=== PATIENT | female | born 1960 | race Caucasian/White ===

== ENCOUNTER 2020-06-08 12:09 | Inpatient (IN) | payer OTHER, SELFPAY ==
--- OUTSIDE RECORDS SUMMARY | 2020-06-08 12:11 | XMS REPORT | Clinical Summary ---
:1960 Author Organization [facility] Address [address] [place] [address] Care Team Providers Name Role Phone Asked, No Pcp Primary Care Provider Unavailable Allergies Not on File Medications Not on file Active Problems Not on file Social History Tobacco Use Types Packs/Day Years Used Date Never Assessed Sex Assigned at Date Recorded Not on file Last Filed Vital Signs Not on file Plan of Treatment Health Maintenance Due Date Last Done Comments COVID-19 VACCINE (1 of 2) 1977 CERVICAL CANCER SCREENING 1982 BREAST CANCER SCREENING 09/01/2011 COLONOSCOPY SCREENING 09/01/2011 SHINGLES VACCINES (#1) 09/01/2011 INFLUENZA VACCINE 12/09/2019 Results Not on fileafter 06/08/2019
--- OUTSIDE RECORDS SUMMARY | 2020-06-08 12:14 | XMS REPORT | Continuity of Care Document ---
:1960 Author Organization [facility] Information [place] Care Team Providers Name Role Phone [facility] Information Exchange Unavailable Un available Problems Problem Status Onset Classification Date Comments Sourc e Date Reported POSSIBLE STROKE Active S ugar 016 [place] HYPOTENSION, DIZZINESS Active Sugar 016 [place] G81.[address] RIGHT SIDE WEAKNESS Active 016 [facility] CVA Active 016 [facility] CHEST PAIN Active Sugar 016 [place] Discharge Diagnosis: 07/09/2015 [place] Anxiety in acute 016 Evan d stress reaction Discharge Diagnosis: 07/09/2015 [place] Left-sided chest wall 016 [place] pain Discharge Diagnosis: 06/24/2015 Anxiety 016 [facility] Discharge Diagnosis: 06/24/2015 Benign hypertension 016 [facility] HYPERTENSION Active 016 [facility] Anxiety (finding) Resolved Problem 09/29/2015 [facility], [place] [facility],[facility], [place] Gastritis (disorder) Resolved Problem 09/29/2015 [facility], [place],[facility], [place] Hypercholesterolemia Resolved Problem 09/29/2015 [facility] (disorder) [facility], [place],[facility], [place] Hypertensive disorder, Resolved Problem 09/29/2015 [facility] systemic arterial Me dical (disorder) Center, [place] [facility],[facility], [place] Hypothyroidism Resolved Problem 09/29/2015 [place] ([place]order) [facility], LI[place] R[place],[facility], [place] Major depressive Resolved Problem 09/29/2015 [facility] disorder (disorder) Medical Center, [place] R[place],[facility], [place] Rheumatoid arthritis Resolved Problem 09/29/2015 [facility] (disorder) [facility], [place] R[place],[facility], [place] Suicidal thoughts Resolved Problem 09/29/2015 [facility] (finding) [facility], [facility] Depressive disorder Resolved Problem 09/29/2015 [facility] (disorder) [facility], [place] Optic neuritis Resolved Problem 09/29/2015 Janet alejandra (disorder) [facility], [facility] Medications Medication Details Route Status Patient Ordering Order Source Instructions Provider Date Amlodipine 5 MG / 0.5 tab, PO, Active [facility] [place] Sugar Hydrochlorothiazide Daily, # 15 2015 [place] 25 MG / valsartan 160 tab, 0 MG Oral Tablet Refill(s) [Exforge HCT 5160/25] Risperdal Notes: (Same Inactive Sugar as: 2015 Risperdal) Omeprazole 20 mg, No Longer Sugar Route: PO, Active 2015 Drug form: DRC, Daily, Dosing Weight 72.727, kg, Start date: 09/26/15 9:00:00 CDT, Duration: 30 day, Stop date: 10/25/15 9:00:00 CDT Protonix Notes: Inactive Sugar Tablet 2015 should not be chewed or crushed. (Same as: Protonix) Advair Diskus 250 1 puff, No Longer S ugar mcg-50 mcg inhalation Route: Active [place] powder INHALATION, Drug Form: AERO, Dosing Weight 72.727, kg, BID, Start date: 09/26/15 9:00:00 CDT, Duration: 30 day, Stop date: 10/25/15 17:00:00 CDT Wellbutrin XL Notes: (Same Inactive S ugar as: 2015 Wellbutrin XL) "Do Not Crush" Effexor XR Notes: Do Inactive Sugar not open, 2015 crush, or chew. (Same As: Effexor XR) Cytomel Notes: (Same Inactive Sugar as: Cytomel) 2015 [place] liothyronine sodium 5 microgram Active Sugar 0.005 MG Oral Tablet = 1 tab, PO, 2015 [place] [Cytomel] Daily, # 30 tab, 3 Refill(s) Levothyroxine Sodium 150 Active Sugar 0.15 MG Oral Tablet microgram = 2015 [place] [Synthroid] 1 tab, PO, Daily, Brand Name Necessary, # 30 tab, 3 Refill(s) Thyroxine Notes: Take Inactive Sugar 1 hour 2015 [place] before or 2 hours after meal; Enteral feeds may interefere with the absorption of this medication.( Same as:Levothroi d, Synthroid) Diazepam Notes: (Same No Longer Sugar as: Valium) Active 2015 [place] Lipitor Notes: (Same No Longer Sugar as: Lipitor) Active 2015 [place] Symbicort 80/4.5 Notes: (Same No Longer Sugar inhalation aerosol as: Active 2015 [place] with adapter Symbicort) WASTE: Aerosol - Return to Pharmacy NS 1,000 mL 1,000 mL, No Longer Sugar Rate: 125 Active 2015 ml/hr, Infuse over: 8 hr, Route: IV, Dosing Weight 72.727 kg, Total Volume: 1,000, Start date: 09/25/15 20:27:00 CDT, Duration: 30 day, Stop date: 10/25/15 20:26:00 CDT Acetaminophen Notes: Do No Longer Sug ar not exceed 4 Active 2015 [place] gm/day. (Same as: Tylenol) Morphine Notes: (Same No Longer Sugar as:MORPhine Active 2015 [place] Sulfate) Acetaminophen 325 MG Notes: (Same No Longer 09/07 Sugar / Hydrocodone as: [place] Active 2015 [place] Bitartrate 5 MG Oral 325/5) Do Tablet not exceed 4gm/day of acetaminophe n. Ondansetron Notes: (Same No Longer [place] as: Zofran) Active 2015 [place] MEDICATION WASTE Product Size: 4 mg Product Wasted: ___ mg Docusate Notes: (Same No Longer Sugar as: Colace) Active 2015 [place] (Do Not Crush) Risperidone 2 MG Oral 2 mg = 1 Active H Sugar Tablet [Risperdal] tab, PO, 2015 [place] BID, # 60 tab, 0 Refill(s) venlafaxine 225 mg 225 mg = 1 Active Sugar oral tablet, extended tab, PO, 2015 L and release Daily, # 30 tab, 0 Refill(s) Rosuvastatin calcium 20 mg = 1 Active H Sugar 20 MG Oral Tablet tab, PO, 2015 [place] [Crestor] Bedtime, # 30 tab, 0 Refill(s) Advair Diskus 250 1 puff, Active Sug ar mcg-50 mcg inhalation INHALATION, 2015 [place] powder BID, # 1 ea, 3 Refill(s) Potassium Chloride 10 10 mEq = 1 Active Sugar MEQ Extended Release tab, PO, 2015 [place] Tablet BID, # 10 tab, 0 Refill(s) Acetaminophen Notes: Do Inactive Suga r not exceed 4 2015 gm/day. (Same as: Tylenol) Saline Flush 0.9% Notes: (Same No Longer Sugar as: BD Active 2015 Posiflush) Sodium Chloride 0.154 1,000 mL, Inactive Sugar MEQ/ML Injectable Rate: 150 2015 Solution ml/hr, Infuse over: 6.7 hr, Route: IV, Dosing Weight 72.727 kg, Total Volume: 1,000, Priority: STAT, Start date: 09/25/15 16:51:00 CDT, Duration: 1 doses or times, Stop date: 09/25/15 23:32:00 CDT Sodium Chloride 0.154 1,000 mL, Inactive Sugar MEQ/ML Injectable 1,000 ml/hr, 2015 L and Solution Infuse Over: 1 hr, Route: IV, 1,000, Drug form: INJ, ONCE, Priority: STAT, Dosing Weight 72.727 kg, Start date: 09/25/15 16:12:00 CDT, Duration: 1 doses or times, Stop date: 09/25/15 16:12:00 CDT Effexor PO, 0 No Longer Sugar Refill(s) Active 2015 Risperdal PO, BID, 0 No Longer Sugar Refill(s) Active 2015 Potassium Chloride 20 Notes: (Same Inactive 07/10 MEQ Extended Release as: K-Dur 2015 [facility] Tablet 20) "Do Not City Crush" With food and full glass of water Potassium Chloride 10 10 mEq = 1 Active MEQ Extended Release tab, PO, 2015 Fl morial Tablet BID, # 20 [facility] tab, 0 Refill(s) Effexor XR 225 mg, 3 Inactive cap, Route: 2015 [facility] PO, Drug City form: ERCAP, Daily, Dosing Weight 68.182, kg, Start date: 08/08/15 9:00:00, Duration: 30 day, Stop date: 09/06/15 9:00:00 Omeprazole 20 mg, No Longer Route: PO, Active 2015 [facility] Drug form: City DRC, Daily, Dosing Weight 68.182, kg, Start date: 08/08/15 9:00:00, Duration: 30 day, Stop date: 09/06/15 9:00:00 Pete Notes: (Same Inactive as: Mobic) 2015 [facility] Wellbutrin XL 300 mg, 2 Inactive tab, Route: 2015 [facility] PO, Drug City form: ERTAB, Daily, Dosing Weight 68.182, kg, Start date: 08/08/15 9:00:00, Duration: 30 day, Stop date: 09/06/15 9:00:00 potassium chloride Notes: (Same Inactive as: K-Dur 2015 [facility] 20) "Do Not City Crush" With food and full glass of water Thyroxine Notes: Take Inactive 1 hour 2015 [facility] before or 2 [facility] hours after meal; Enteral feeds may interefere with the absorption of this medication. (Same as:Levothroi d) Sodium Chloride 0.154 500 mL, 500 Inactive 08/07 MEQ/ML Injectable ml/hr, 2015 [facility] al Solution Infuse Over: [facility] 1 hr, Route: IV, 500, Drug form: INJ, ONCE, Priority: STAT, Dosing Weight 71.6 kg, Start date: 08/08/15 1:18:00, Duration: 1 doses or times, Stop date: 08/08/15 1:18:00 Albumin Human, [facility] 50 Notes: LOT#: Inactive 07/10 1/ MH MG/ML Injectable 2015 Me morial Solution _ [facility] Mfg: WASTE: F/P - Red; E -Red (Same as: Albuminar) "blood product derivative" Sodium Chloride 0.154 1,000 mL, Inactive MEQ/ML Injectable 1,000 ml/hr, 2015 [facility] Solution Infuse Over: [facility] 1 hr, Route: IV, 1,000, Drug form: INJ, ONCE, Priority: STAT, Dosing Weight 71.6 kg, Start date: 08/07/15 23:19:00, Duration: 1 doses or times, Stop date: 08/07/15 23:19:00 Saline Flush 0.9% 10 ml, Inactive Route: IVP, 2015 [facility] Drug Form: City INJ, Dosing Weight 68.182, kg, Q12H, Start date: 08/07/15 21:00:00, Duration: 30 day, Stop date: 09/06/15 9:00:00 Protonix 40 mg, 1 No Longer tab, Route: Active 2015 [facility] PO, Drug City form: ECTAB, Before Dinner, Start date: 08/07/15 21:00:00, Duration: 30 day, Stop date: 09/06/15 16:30:00 Nancy Notes: (Same No Longer As: Geodon) Active 2015 [facility] Give with [facility] Food Diazepam Notes: (Same No Longer as: Valium) Active 2015 [facility] Symbicort 80/4.5 Notes: (Same No Longer inhalation aerosol as: Active 2015 Mem[facility] ial with adapter Symbicort) [facility] WASTE: Aerosol - Return to Pharmacy Lipitor Notes: (Same No Longer as: Lipitor) Active 2015 [facility] Enoxaparin Notes: (Same No Longer as: Lovenox) Active 2015 [facility] Sodium Chloride 0.9% 25 mL, No Longer H IV Route: IV, Active 2015 [facility] Start date: [facility] 08/07/15 19:36:00, Duration: 30 day, Stop date: 09/06/15 19:35:00, PRN Line Flush BD Normal Saline Notes: (Same No Longer Flush as: BD Active 2015 [facility] Posiflush) [facility] normal saline 0.9% IV 1,000 mL, No Longer 1,000 mL Rate: [address] [place] [address] ml/hr, [facility] Infuse over: 8 hr, Route: IV, Dosing Weight 68.182 kg, Total Volume: 1,000, Start date: 08/07/15 18:13:00, Duration: 30 day, Stop date: 09/06/15 18:12:00 Saline Flush 0.9% 10 ml, Inactive Route: IVP, [address] [place] [address] Drug Form: [facility] INJ, Dosing Weight 68.182, kg, PRN, PRN Line Flush, Start date: 08/07/15 18:12:00, Duration: 30 day, Stop date: 09/06/15 18:11:00 ziprasidone 20 MG 20 mg = 1 Active Oral Capsule [Geodon] cap, PO, 2015 [facility] QPM, # 180 [place] cap, 0 Refill(s) Symbicort 80/4.5 2 puff, Active inhalation aerosol INHALATION, 2015 [facility] with adapter BID, # 10.2 [place] gm, 0 Refill(s) atorvastatin 80 MG 80 mg = 1 Active Oral Tablet [Lipitor] tab, PO, 2016 [facility] Bedtime, # City 30 tab, 0 Refill(s) omeprazole 20 mg oral 20 mg = 1 Active delayed release cap, PO, 2016 Memoria l capsule Daily, # 30 [place] cap, 1 Refill(s) 24 HR Bupropion 300 mg = 1 Active Hydrochloride 300 MG tab, PO, 2016 Fl morial Extended Release Daily, # 30 Cit y Tablet [Wellbutrin] tab, 0 Refill(s) 24 HR venlafaxine 75 225 mg = 3 Active MG Extended Release cap, PO, 2016 Mem orial Capsule [Effexor] Daily, # 30 Ci ty cap, 0 Refill(s) Amlodipine 5 MG / 1 tab, PO, Active Hydrochlorothiazide Daily, # 30 2016 [facility] 25 MG / valsartan 160 tab, 0 Ci ty MG Oral Tablet Refill(s) [Exforge HCT 5/160/25] metoprolol 50 mg oral 50 mg = 1 Active tablet, extended tab, PO, 2015 Memori al release Daily, # 30 [facility] tab, 0 Refill(s) meloxicam 15 MG Oral 15 mg = 1 Active H Tablet [Mobic] tab, PO, 2015 [facility] Daily, # 30 [facility] tab, 0 Refill(s) levothyroxine 125 mcg 125 Active 08/06[facility] (0.125 mg) oral microgram = 2015 Vic rial tablet 1 tab, PO, [facility] Daily, # 30 tab, 0 Refill(s) diazepam 5 mg oral 5 mg = 1 Active tablet tab, PO, 2015 [facility] BID, # 30 [place] tab, 0 Refill(s) Sodium Chloride 0.154 1,000 mL, Inactive MEQ/ML Injectable 1,000 ml/hr, 2015 [facility] Solution Infuse Over: [facility] 1 Hour, Route: IV, ONCE, Priority: STAT, Dosing Weight 68.182 kg, Start date: 08/07/15 17:20:00, Duration: 1 doses or times, Stop date: 08/07/15 17:20:00 Aspirin 324 mg, Inactive Route: CHEW, 2015 [facility] Drug form: [facility] CHEWTAB, ONCE, Dosing Weight 68.182, kg, Priority: STAT, Start date: 08/07/15 17:14:00, Stop date: 08/07/15 17:14:00 Saline Flush 0.9% Notes: (Same Inactive as: BD 2015 [facility] Posiflush) [facility] Ativan 0.5 mg, Inactive Sugar Route: IVP, 2015 [facility] Drug form: INJ, ONCE, Dosing Weight 74.545, kg, Priority: STAT, Start date: 07/06/15 16:17:00, Stop date: 07/06/15 16:17:00 Aspirin 324 mg, Inactive Sugar Route: PO, 2015 [facility] ONCE, Dosing Weight 74.545, kg, Priority: STAT, Start date: 07/06/15 16:17:00, Stop date: 07/06/15 16:17:00 Morphine 2 mg, Route: Inactive Sugar IVP, ONCE, 2015 [facility] Dosing Weight 74.545, kg, Priority: STAT, Start date: 07/06/15 16:17:00, Stop date: 07/06/15 16:17:00 Ondansetron 4 mg, Route: Inactive Sug ar IVP, ONCE, 2015 [facility] Dosing Weight 74.545, kg, Priority: STAT, Start date: 07/06/15 16:17:00, Stop date: 07/06/15 16:17:00 Saline Flush 0.9% Notes: (Same Inactive Sugar as: BD 2015 [facility] Posiflush) Famotidine 20 mg, Inactive Sugar Route: IVP, 2015 [facility] ONCE, Dosing Weight 74.545, kg, Priority: STAT, Start date: 07/06/15 16:16:00, Stop date: 07/06/15 16:16:00 Valium 0 Refill(s) Active Sugar 2016 [facility] Amlodipine 10 MG / 1 tab, PO, Active Sugar valsartan 160 MG Oral Daily, 0 2016 L and Tablet [Exforge Refill(s) 10/160] Omeprazole PO, Daily, 0 Active Sugar Refill(s) 2016 [place] Crestor PO, Bedtime, Active Sugar 0 Refill(s) 2016 [facility] metoprolol tartrate BID, 0 Active S ugar Refill(s) 2016 [facility] Levothroid PO, Daily, 0 Active Sugar Refill(s) 2016 [facility] Wellbutrin PO, 0 Active Sugar Refill(s) 2016 [facility] Advair Diskus 100 1 puff, Active Sug ar mcg-50 mcg inhalation INHALATION, 2016 [facility] powder BID, 0 Refill(s) clindamycin 300 mg 300 mg = 1 Active oral capsule cap, PO, 2016 [facility] Q6H, X 10 City day, # 40 cap, 0 Refill(s) tramadol 50 mg = 1 Active hydrochloride 50 MG tab, PO, 2016 Mem orial Oral Tablet Q6H, PRN City Pain, X 10 day, # 40 tab, 0 Refill(s) Sodium Chloride 0.154 1,000 mL, Inactive MEQ/ML Injectable 1,000 ml/hr, 2016 [facility] Solution Infuse Over: [facility] 1 hr, Route: IV, 1,000, Drug form: INJ, ONCE, Priority: STAT, Dosing Weight 78.182 kg, Start date: 06/21/15 13:42:00, Duration: 1 doses or times, Stop date: 06/21/15 13:42:00 Amlodipine Notes: (Same Inactive as: [facility]) 2015 [facility] Allergies, Adverse Reactions, Alerts Substance Category Reaction Severity Reaction Status Date Comments S ource type Reported Mucinex Assertion Drug Active allergy [place] penicillins Assertion Drug Active allergy [place] Immunizations No Data Provided for This Section Results Order Name Results Value Reference Date Interpretation Comments Rosey rce Range CARDIAC Total CK 80 12 - 191 09/25 Sugar ENZYMES [facility] CARDIAC Troponin-I <0.02 0.00 - 09/25 [place] ENZYMES 0.40 [facility] CARDIAC CK MB Index 0.9 0.0 - 2.5 09/25 Sugar ENZYMES [facility] CARDIAC CK MB 0.7 0.5 - 3.6 09/25 Sugar ENZYMES [facility] CHEM PANEL eGFR 57 09/25 Result Comment: The [facility] eGFR is calculated using the CKD-EPI formula. In most young, healthy individuals the eGFR will be >90 mL/min/1.73m2 . The eGFR declines with age. An eGFR of 60-89 may be normal in some populations, particularly the elderly, for whom the CKD-EPI formula has not been extensively validated. Use of the eGFR is not recommended in the following populations:< br/>
Maryan viduals with unstable creatinine concentration s, including patients and those with serious co-morbid conditions.<b r/>
Patie nts with extremes in muscle mass or diet.

The data above are obtained from the National Kidney Disease Education Program (NKDEP) which additionally recommends that when the eGFR is used in patients with extremes of body mass index for purposes of drug dosing, the eGFR should be multiplied by the estimated BMI. CHEM PANEL AGAP 12.5 10.0 - 09/25 Sugar 20.0 [facility] CHEM PANEL Calcium Lvl 8.6 8.5 - 10.5 09/25 Sug ar [facility] CHEM PANEL Glucose Lvl 82 70 - 99 09/25 [place] CHEM PANEL BUN 12 7 - 22 09/25 [place] /2015 [place] CHEM PANEL Sodium Lvl 144 135 - 145 09/25 [place] CHEM PANEL CO2 26 24 - 32 09/25 [place] CHEM PANEL Potassium 3.5 3.5 - 5.1 09/25 [place] Lvl /2015 [place] CHEM PANEL Chloride Lvl 109 95 - 109 09/25 [place] CHEM PANEL Creatinine 1.10 0.50 - 05 [place] Lvl 1.40 /2015 [place] HEMATOLOGY Segs 58.5 45.0 - 05 [place] 75.0 /2015 [place] HEMATOLOGY Lymphocytes 31.4 20.0 - 05 [place] 40.0 /2015 [place] HEMATOLOGY Lymphocytes 1.7 1.0 - 5.5 09/25 [place] # /2015 [place] HEMATOLOGY Segs-Bands # 3.2 1.5 - 8.1 09/25 Sug [place] HEMATOLOGY Eosinophils 0.0 0.0 - 0.5 09/25 [place] # Land HEMATOLOGY Monocytes # 0.5 0.0 - 0.8 09/25 [place] HEMATOLOGY Basophils # 0.0 0.0 - 0.2 09/25 [place] HEMATOLOGY Monocytes 9.8 2.0 - 12.0 09/25 [place] HEMATOLOGY Eosinophils 0.0 0.0 - 4.0 09/25 [place] HEMATOLOGY Basophils 0.3 0.0 - 1.0 09/25 [place] HEMATOLOGY MPV 8.0 7.4 - 10.4 09/25 [place] HEMATOLOGY RDW 15.7 11.5 - 09/25 [place] 14.5 /2015 [place] HEMATOLOGY Platelet 161 133 - 450 09/25 [place] HEMATOLOGY MCHC 32.2 32.0 - 05 [place] 36.0 /2015 [place] HEMATOLOGY MCH 28.6 27.0 - 05 [place] 31.0 /2015 [place] HEMATOLOGY Hct 34.3 36.0 - 05 [place] 48.0 /2015 [place] HEMATOLOGY MCV 88.7 80.0 - 09/25 [place] 98.0 /2015 [place] HEMATOLOGY RBC 3.86 4.20 - 09/25 Sugar 5.40 /2015 [place] HEMATOLOGY Hgb 11.0 12.0 - 05/19 Sugar 16.0 /2015 [place] HEMATOLOGY WBC 5.5 3.7 - 10.4 09/25 [place] /2015 [place] CARDIAC CK MB Index 0.9 0.0 - 2.5 09/25 [place] ENZYMES [place] CARDIAC CK MB 0.7 0.5 - 3.6 09/25 [place] ENZYMES [place] CARDIAC Troponin-I <0.02 0.00 - 09/25 Sugar ENZYMES 0.40 /2015 [place] CARDIAC Total CK 82 12 - 191 09/25 Sugar ENZYMES Land URINE AND UA Color Yellow Yellow 09/24 Sugar STOOL *NA* /2015 [place] (09/25/15 5:05 PM) URINE AND UA Mucus Moderate None Seen 09/24 Sugar STOOL /LPF /LPF /2015 [place] URINE AND UA Bacteria Few /HPF None Seen 09/24 [place] STOOL /HPF Land URINE AND UA Hyal Cast 6-10 0 - 2 09/24 [place] STOOL (09/25/15 5:05 PM) Land URINE AND UA Turbidity Slight Cloudy Clear 09/24 [place] STOOL (09/25/15 5:05 PM) Land URINE AND UA pH 6.0 5.0 - 8.0 09/24 [place] STOOL Land URINE AND UA Spec Grav >=1.030 <=1.030 09/24 [place] STOOL *ABN* /2015 [place] (09/25/15 5:05 PM) URINE AND UA Protein Trace Negative 09/24 Sugar STOOL *ABN* /2015 [facility] (09/25/15 5:05 PM) URINE AND UA Leuk Est Trace Negative 09/24 Sugar STOOL *ABN* /2015 [place] (09/25/15 5:05 PM) URINE AND UA Nitrite Negative Negative 09/24 [place] STOOL (09/25/15 5:05 PM) Land URINE AND UA WBC 3-5 /HPF None Seen 09/24 [place] STOOL /HPF [place] URINE AND UA Sq Epi Few /LPF Few /LPF 09/24 [place] STOOL Land URINE AND UA Blood Negative Negative 09/24 [place] STOOL (09/25/15 5:05 PM) Land URINE AND UA RBC 0-2 /HPF 0 - 2 09/24 [place] STOOL [place] URINE AND UA Glucose Negative Negative 09/24 MH Sugar STOOL (09/25/15 5:05 PM) /2015 [place] URINE AND UA 0.2 0.1 - 1.0 09/24 [place] STOOL Urobilinogen /2015 [place] URINE AND UA Ketones Negative Negative 09/24 Sugar STOOL *NA* /2015 [place] (09/25/15 5:05 PM) URINE AND UA Bili Small Negative 09/24 [place] STOOL *ABN* /2015 [place] (09/25/15 5:05 PM) CARDIAC Total CK 94 12 - 191 09/24 [place] ENZYMES /2015 [place] CARDIAC Troponin-I <0.015 0.00 - 09/24 [place] ENZYMES ng/mL 0.40 [facility] CHEM PANEL Magnesium 2.1 1.8 - 2.4 09/24 [place] Lvl /2015 [place] ELECTROLYTE AGAP 9.6 10.0 - 09/24 MH Sugar S 20.0 [place] ELECTROLYTE B/C Ratio 11 6 - 25 09/24 Sugar S [place] ELECTROLYTE Globulin 3.8 2.0 - 4.0 09/24 Sugar S [place] ELECTROLYTE A/G Ratio 1.0 0.7 - 1.6 09/24 Sugar S [place] ELECTROLYTE eGFR 35 09/24 Sugar S /2015 Comment: The [facility] eGFR is calculated using the CKD-EPI formula. In most young, healthy individuals the eGFR will be >90 mL/min/1.73m2 . The eGFR declines with age. An eGFR of 60-89 may be normal in some populations, particularly the elderly, for whom the CKD-EPI formula has not been extensively validated. Use of the eGFR is not recommended in the following populations:< br/>
Maryan viduals with unstable creatinine concentration s, including patients and those with serious co-morbid conditions.<b r/>
Patie nts with extremes in muscle mass or diet.

The data above are obtained from the National Kidney Disease Education Program (NKDEP) which additionally recommends that when the eGFR is used in patients with extremes of body mass index for purposes of drug dosing, the eGFR should be multiplied by the estimated BMI. ELECTROLYTE Bili Total 0.4 0.2 - 1.3 09/24 [place] S [place] ELECTROLYTE AST 16 0 - 37 09/24 [place] S [place] ELECTROLYTE Alk Phos 78 39 - 136 05/18 Sugar S /2016 [place] ELECTROLYTE ALT 17 0 - 65 05/18 Sugar S /2016 [place] ELECTROLYTE Calcium Lvl 9.2 8.5 - 10.5 05/18 [place] S /2016 [place] ELECTROLYTE Chloride Lvl 103 95 - 109 05/18 Sug ar S /2016 [place] ELECTROLYTE CO2 29 24 - 32 05/18 Sugar S /2016 [place] ELECTROLYTE Glucose Lvl 74 70 - 99 05/18 Sugar S /2016 [place] ELECTROLYTE BUN 18 7 - 22 05/18 Sugar S /2016 [place] ELECTROLYTE Sodium Lvl 138 135 - 145 05/18 [place] S /2016 [place] ELECTROLYTE Potassium 3.6 3.5 - 5.1 05/ Sugar S Lvl /2016 [place] ELECTROLYTE Creatinine 1.65 0.50 - 05 Sugar S Lvl 1.40 /2016 [place] ELECTROLYTE Total 7.7 6.4 - 8.4 / Sugar S Protein /2016 [place] ELECTROLYTE Albumin Lvl 3.9 3.5 - 5.0 05/ Sug ar S /2016 [place] HEMATOLOGY PTT 29.0 22.9 - 05/18 Sugar 35.8 /2016 [place] HEMATOLOGY INR 1.06 0.85 - 05/18 Sugar 1.17 /2016 [place] HEMATOLOGY PT 14.1 12.0 - 05/18 [place] 14.7 /2016 [place] HEMATOLOGY Hgb 11.6 12.0 - 05/18 [place] 16.0 /2016 [place] HEMATOLOGY MCV 87.9 80.0 - 05/18 [place] 98.0 /2016 [place] HEMATOLOGY Hct 36.1 36.0 - 05/18 [place] 48.0 /2016 [place] HEMATOLOGY WBC 6.9 3.7 - 10.4 05/18 MH Sugar /2016 [place] HEMATOLOGY RDW 15.4 11.5 - 05/18 [place] 14.5 /2016 [place] HEMATOLOGY RBC 4.11 4.20 - 05/18 Sugar 5.40 /2016 [place] HEMATOLOGY Platelet 176 133 - 450 05/18 Sugar /2016 [place] HEMATOLOGY MPV 8.3 7.4 - 10.4 05/18 Sugar /2016 [place] HEMATOLOGY MCH 28.2 27.0 - 05/18 [place] 31.0 /2016 [place] HEMATOLOGY MCHC 32.1 32.0 - 05/18 [place] 36.0 /2016 [place] HEMATOLOGY Lymphocytes 1.6 1.0 - 5.5 05/18 [place] # /2016 [place] HEMATOLOGY Monocytes # 0.7 0.0 - 0.8 09/24 [place] /2016 [place] HEMATOLOGY Segs-Bands # 4.5 1.5 - 8.1 09/24 Sug ar /2015 [place] HEMATOLOGY Basophils 0.3 0.0 - 1.0 09/24 [place] /2015 [place] HEMATOLOGY Lymphocytes 23.7 20.0 - 09/24 [place] 40.0 [place] HEMATOLOGY Monocytes 10.6 2.0 - 12.0 09/24 [place] /2015 [place] HEMATOLOGY Segs 65.4 45.0 - 09/24 Sugar 75.0 [facility] URINE AND UA Sq Epi Few /LPF Few /LPF 08/07 STOOL /2015 [facility] URINE AND UA Leuk Est Negative Negative 08/07 STOOL (08/08/15 7:04 AM) /2015 [facility] URINE AND UA WBC 2 0 - 5 08/07 STOOL /2015 [facility] URINE AND UA Nitrite Negative Negative 08/07 STOOL (08/08/15 7:04 AM) /2015 [facility] URINE AND UA Blood Negative Negative 08/07 STOOL (08/08/15 7:04 AM) /2015 [facility] URINE AND UA Glucose Negative Negative 08/07 STOOL mg/dL mg/dL /2015 [facility] URINE AND UA Bili Negative Negative 08/07 STOOL *NA* /2015 [facility] (08/08/15 7:04 AM) [facility] URINE AND UA Color Straw 08/07 STOOL [facility] URINE AND UA <=1.0 0.1 - 1.0 08/07 STOOL Urobilinogen mg/dL /2015 [facility] URINE AND UA Ketones Negative 08/07 STOOL /2015 [facility] URINE AND UA Bacteria Moderate None Seen 08/07 STOOL /HPF /HPF /2015 [facility] URINE AND UA RBC 1 0 - 2 08/07 STOOL /2015 [facility] URINE AND UA Mucus Few /LPF None Seen 08/07 STOOL /LPF /2015 [facility] URINE AND UA Turbidity Clear Clear 08/07 STOOL (08/08/15 7:04 AM) /2015 [facility] URINE AND UA Spec Grav 1.004 <=1.030 08/07 STOOL /2015 [facility] URINE AND UA pH 6.0 5.0 - 8.0 08/07 STOOL /2015 [facility] URINE AND UA Protein Negative Negative 08/07 STOOL mg/dL mg/dL /2015 [facility] CHEM PANEL Magnesium 2.1 1.8 - 2.4 08/07 Lvl [facility] CHEM PANEL eGFR 47 08/07 Result Comment: [facility] eGFR is City calculated using the CKD-EPI formula. In most young, healthy individuals the eGFR will be >90 mL/min/1.73m2 . The eGFR declines with age. An eGFR of 60-89 may be normal in some populations, particularly the elderly, for whom the CKD-EPI formula has not been extensively validated. Use of the eGFR is not recommended in the following populations:< br/>
Maryan viduals with unstable creatinine concentration s, including patients and those with serious co-morbid conditions.<b r/>
Patie nts with extremes in muscle mass or diet.

The data above are obtained from the National Kidney Disease Education Program (NKDEP) which additionally recommends that when the eGFR is used in patients with extremes of body mass index for purposes of drug dosing, the eGFR should be multiplied by the estimated BMI. CHEM PANEL Calcium Lvl 8.3 8.5 - 10.5 08/07 [facility] CHEM PANEL AGAP 13.1 10.0 - 08/07 20.0 [facility] CHEM PANEL Potassium 3.1 3.5 - 5.1 08/07 Lvl [facility] CHEM PANEL Chloride Lvl 112 95 - 109 08/07 [facility] CHEM PANEL CO2 26 24 - 32 08/07 [facility] CHEM PANEL Sodium Lvl 148 135 - 145 08/07 [facility] CHEM PANEL Creatinine 1.31 0.50 - 08/07 Lvl 1.40 /2015 [facility] CHEM PANEL BUN 12 7 - 22 08/07 [facility] CHEM PANEL Glucose Lvl 71 70 - 99 08/07 [facility] HEMATOLOGY MCV 86.3 80.0 - 08/07 MH 98.0 /2015 [facility] HEMATOLOGY MPV 9.0 7.4 - 10.4 08/07 [facility] HEMATOLOGY Platelet 114 133 - 450 08/07 [facility] HEMATOLOGY RDW 13.9 11.5 - 08/07 MH 14.5 [facility] HEMATOLOGY MCHC 32.1 32.0 - 08/07 MH 36.0 /2015 [facility] HEMATOLOGY Hct 32.0 36.0 - 08/07 MH 48.0 /2015 [facility] HEMATOLOGY MCH 27.7 27.0 - 08/07 MH 31.0 /2015 [facility] HEMATOLOGY WBC 3.7 3.7 - 10.4 08/07 MH /2015 [facility] HEMATOLOGY Hgb 10.3 12.0 - 08/07 MH 16.0 /2015 [facility] HEMATOLOGY RBC 3.70 4.20 - 08/07 MH 5.40 /2015 [facility] HEMATOLOGY Segs 33.0 45.0 - 08/07 MH 75.0 /2015 [facility] HEMATOLOGY Bands 0.0 0.0 - 11.0 08/07 /2015 [facility] HEMATOLOGY Lymphocytes 61.0 20.0 - 08/07 MH 40.0 /2015 [facility] HEMATOLOGY Monocytes 5.0 2.0 - 12.0 08/07 /2015 [facility] HEMATOLOGY Plt Morph Normal 08/07 (08/08/15 4:41 AM) /2015 [facility] HEMATOLOGY RBC Morph Normal 08/07 (08/08/15 4:41 AM) /2015 [facility] Myelocytes 1.0 <=0.0 % 08/07 /2015 [facility] HEMATOLOGY Atypical 0.0 <=0.0 % 08/07 Lymphs /2015 [facility] HEMATOLOGY Monocytes # 0.2 0.0 - 0.8 08/07 /2015 [facility] HEMATOLOGY Segs-Bands # 1.2 1.5 - 8.1 08/07 /2015 [facility] HEMATOLOGY Lymphocytes 2.3 1.0 - 5.5 08/07 # /2015 [facility] LIPIDS CHD Risk 3.06 3.90 - 08/07 5.80 /2015 [facility] LIPIDS LDL 31 <=99 mg/dL 08/07 (Calculated) /2015 [facility] LIPIDS HDL 31 >=61 mg/dL 08/07 /2015 [facility] LIPIDS Chol 95 <=199 08/07 mg/dL /2015 [facility] LIPIDS Trig 165 <=149 08/07 mg/dL /2015 [facility] LIPIDS VLDL 33 08/07 MH /2015 [facility] CHEM PANEL Creatinine 1.42 0.50 - 08/07 Lvl 1.40 /2015 [facility] CHEM PANEL eGFR 42 08/07 Result Comment: [facility] eGFR is City calculated using the CKD-EPI formula. In most young, healthy individuals the eGFR will be >90 mL/min/1.73m2 . The eGFR declines with age. An eGFR of 60-89 may be normal in some populations, particularly the elderly, for whom the CKD-EPI formula has not been extensively validated. Use of the eGFR is not recommended in the following populations:< br/>
Maryan viduals with unstable creatinine concentration s, including patients and those with serious co-morbid conditions.<b r/>
Patie nts with extremes in muscle mass or diet.

The data above are obtained from the National Kidney Disease Education Program (NKDEP) which additionally recommends that when the eGFR is used in patients with extremes of body mass index for purposes of drug dosing, the eGFR should be multiplied by the estimated BMI. HEMATOLOGY PTT 30.8 22.9 - 08/07 35.8 /2015 [facility] HEMATOLOGY Platelet 156 133 - 450 08/07 [facility] SPECIAL Hgb A1C 5.7 <=5.6 % 08/07 CHEMISTRY [facility] URINE AND UA RBC 1 0 - 2 08/06 STOOL [facility] URINE AND UA Sq Epi Moderate Few /LPF 08/06 STOOL /LPF [facility] URINE AND UA WBC 5 0 - 5 08/06 STOOL [facility] URINE AND UA Hyal Cast 5 0 - 2 08/06 STOOL [facility] URINE AND UA Mucus Many /LPF None Seen 08/06 STOOL /LPF [facility] URINE AND UA Bacteria Occasional None Seen 08/06 STOOL /HPF /HPF [facility] URINE AND UA Ketones Negative 08/06 STOOL [facility] URINE AND UA <=1.0 0.1 - 1.0 08/06 STOOL Urobilinogen mg/dL [facility] URINE AND UA pH 5.0 5.0 - 8.0 08/06 STOOL [facility] URINE AND UA Protein 30 mg/dL Negative 08/06 STOOL mg/dL [facility] URINE AND UA Turbidity Slight Clear 08/06 STOOL *ABN* /2015 [facility] Spec Grav 1.019 <=1.030 08/06 MH STOOL /2015 [facility] URINE AND UA Color Dark Yellow Yellow 08/06 STOOL *NA* /2015 [facility] (08/07/15 5:01 PM) [facility] URINE AND UA Glucose Negative Negative 08/06 STOOL mg/dL mg/dL /2015 [facility] URINE AND UA Blood Negative Negative 08/06 STOOL (08/07/15 5:01 PM) [facility] URINE AND UA Bili Negative Negative 08/06 STOOL *NA* /2015 [facility] (08/07/15 5:01 PM) [facility] URINE AND UA Nitrite Negative Negative 08/06 STOOL (08/07/15 5:01 PM) [facility] URINE AND UA Leuk Est Negative Negative 08/06 STOOL (08/07/15 5:01 PM) [facility] CHEM PANEL B/C Ratio 9 6 - 25 08/06 [facility] CHEM PANEL A/G Ratio 1.2 0.7 - 1.6 08/06 [facility] CHEM PANEL Globulin 3.7 2.0 - 4.0 08/06 [facility] CHEM PANEL AGAP 15.1 10.0 - 08/06 MH 20.0 [facility] CHEM PANEL eGFR 33 08/06 Comment: [facility] eGFR is City calculated using the CKD-EPI formula. In most young, healthy individuals the eGFR will be >90 mL/min/1.73m2 . The eGFR declines with age. An eGFR of 60-89 may be normal in some populations, particularly the elderly, for whom the CKD-EPI formula has not been extensively validated. Use of the eGFR is not recommended in the following populations:< br/>
Maryan viduals with unstable creatinine concentration s, including patients and those with serious co-morbid conditions.<b r/>
Patie nts with extremes in muscle mass or diet.

The data above are obtained from the National Kidney Disease Education Program (NKDEP) which additionally recommends that when the eGFR is used in patients with extremes of body mass index for purposes of drug dosing, the eGFR should be multiplied by the estimated BMI. CHEM PANEL ALT 24 0 - 65 08/06 [facility] CHEM PANEL AST 38 0 - 37 08/06 [facility] CHEM PANEL Creatinine 1.73 0.50 - 08/06 MH Lvl 1.40 /2015 [facility] CHEM PANEL Glucose Lvl 104 70 - 99 08/06 [facility] CHEM PANEL BUN 15 7 - 22 08/06 [facility] CHEM PANEL Bili Total 0.3 0.2 - 1.3 08/06 [facility] CHEM PANEL Total 8.0 6.4 - 8.4 08/06 MH Protein [facility] CHEM PANEL Alk Phos 83 39 - 136 08/06 [facility] CHEM PANEL Potassium 3.1 3.5 - 5.1 08/06 MH Lvl /2015 [facility] CHEM PANEL Sodium Lvl 143 135 - 145 08/06 [facility] CHEM PANEL CO2 30 24 - 32 08/06 [facility] CHEM PANEL Chloride Lvl 101 95 - 109 08/06 [facility] CHEM PANEL Calcium Lvl 9.5 8.5 - 10.5 08/06 [facility] CHEM PANEL Albumin Lvl 4.3 3.5 - 5.0 08/06 [facility] HEMATOLOGY Monocytes # 0.7 0.0 - 0.8 08/06 [facility] HEMATOLOGY Eosinophils 0.0 0.0 - 0.5 08/06 MH # /2015 [facility] HEMATOLOGY Lymphocytes 28.2 20.0 - 08/06 MH 40.0 [facility] HEMATOLOGY Segs 62.2 45.0 - 08/06 MH 75.0 [facility] HEMATOLOGY Monocytes 9.3 2.0 - 12.0 08/06 [facility] HEMATOLOGY Lymphocytes 2.2 1.0 - 5.5 08/06 MH # /2015 [facility] HEMATOLOGY Eosinophils 0.0 0.0 - 4.0 08/06 [facility] HEMATOLOGY Basophils 0.3 0.0 - 1.0 08/06 [facility] HEMATOLOGY Segs-Bands # 4.9 1.5 - 8.1 08/06 [facility] HEMATOLOGY Hgb 13.4 12.0 - 08/06 MH 16.0 [facility] HEMATOLOGY MCH 28.0 27.0 - 08/06 MH 31.0 /2015 [facility] HEMATOLOGY Hct 41.0 36.0 - 08/06 MH 48.0 /2015 [facility] HEMATOLOGY MCV 85.6 80.0 - 08/06 MH 98.0 [facility] HEMATOLOGY RDW 13.6 11.5 - 03/30 MH 14. [facility] HEMATOLOGY Platelet 198 133 - 450 08/06 [facility] HEMATOLOGY MCHC 32.6 32.0 - 08/06 MH 36.0 [facility] HEMATOLOGY MPV 8.5 7.4 - 10.4 08/06 [facility] HEMATOLOGY WBC 7.9 3.7 - 10.4 08/06 [facility] HEMATOLOGY RBC 4.78 4.20 - 08/06 MH 5.40 [facility] CARDIAC CK MB <0.5 0.5 - 3.6 08/06 ENZYMES [facility] CARDIAC Total CK 82 12 - 191 08/06 ENZYMES [facility] CARDIAC Troponin-I <0.02 0.00 - 08/06 [facility] 0. [facility] CARDIAC CK MB <0.5 0.5 - 3.6 08/06 ENZYMES [facility] CARDIAC CK MB Index <0.6 0.0 - 2.5 08/06 [facility]YM[facility] CARDIAC Troponin-I <0.015 0.00 - 07/06 [place] [facility] ng/mL 0. [facility] CARDIAC CK MB <0.5 ng/mL 0.5 - 3.6 07/06 [place] [facility] CARDIAC Total CK 33 12 - 191 07/06 [place] [facility] CARDIAC CK MB Index <0.5 0.0 - 2.5 07/06 [place] [facility] CHEM PANEL eGFR 43 07/06 Comment: [facility] [place] eGFR is calculated using the CKD-EPI formula. In most young, healthy individuals the eGFR will be >90 mL/min/1.73m2 . The eGFR declines with age. An eGFR of 60-89 may be normal in some populations, particularly the elderly, for whom the CKD-EPI formula has not been extensively validated. Use of the eGFR is not recommended in the following populations:< br/>
Maryan viduals with unstable creatinine concentration s, including patients and those with serious co-morbid conditions.<b r/>
Patie nts with extremes in muscle mass or diet.

The data above are obtained from the National Kidney Disease Education Program (NKDEP) which additionally recommends that when the eGFR is used in patients with extremes of body mass index for purposes of drug dosing, the eGFR should be multiplied by the estimated BMI. CHEM PANEL AGAP 14.1 10.0 - 07/06 [place] 20.0 [place] CHEM PANEL Bili Total 0.5 0.2 - 1.3 07/06 [place] CHEM PANEL B/C Ratio 12 6 - 25 07/06 [place] CHEM PANEL Globulin 4.0 2.0 - 4.0 07/06 [place] CHEM PANEL A/G Ratio 1.0 0.7 - 1.6 07/06 [place] CHEM PANEL Sodium Lvl 139 135 - 145 07/06 [place] CHEM PANEL Chloride Lvl 102 95 - 109 07/06 [place] CHEM PANEL Potassium 3.1 3.5 - 5.1 07/06 [place] Lvl /2015 [facility] CHEM PANEL Glucose Lvl 112 70 - 99 07/06 [facility] CHEM PANEL Creatinine 1.41 0.50 - 07/06 [place] Lvl 1.40 [facility] CHEM PANEL BUN 17 7 - 22 07/06 [facility] CHEM PANEL Alk Phos 78 39 - 136 07/06 [place] CHEM PANEL Calcium Lvl 9.4 8.5 - 10.5 07/06 [place] CHEM PANEL CO2 26 24 - 32 07/06 [place] CHEM PANEL Total 8.1 6.4 - 8.4 07/06 [place] CHEM PANEL AST 33 0 - 37 07/06 [place] CHEM PANEL ALT 20 0 - 65 07/06 [place] CHEM PANEL Albumin Lvl 4.1 3.5 - 5.0 07/06 [place] HEMATOLOGY D-Dimer 0.58 07/06 [place] HEMATOLOGY MPV 8.5 7.4 - 10.4 07/06 [place] HEMATOLOGY Platelet 204 133 - 450 07/06 [place] HEMATOLOGY Hct 39.7 36.0 - 07/06 [place] 48.0 [facility] HEMATOLOGY WBC 6.2 3.7 - 10.4 07/06 [place] HEMATOLOGY RBC 4.84 4.20 - 07/06 [place] 5.40 /2015 [place] HEMATOLOGY MCV 81.9 80.0 - 07/06 [place] 98.0 /2016 [place] HEMATOLOGY MCH 27.4 27.0 - 02 [place] 31.0 /2015 [place] HEMATOLOGY MCHC 33.5 32.0 - 07/06 [place] 36.0 /2016 [place] HEMATOLOGY RDW 13.3 11.5 - 07/06 [place] 14.5 /2015 [facility] HEMATOLOGY Hgb 13.3 12.0 - 07/06 [place] 16.0 /2015 [place] HEMATOLOGY Lymphocytes 2.0 1.0 - 5.5 07/06 [place] # /2016 [place] HEMATOLOGY Monocytes # 0.7 0.0 - 0.8 07/06 [place] /2015 [place] HEMATOLOGY Segs 56.2 45.0 - 07/06 [place] 75.0 /2015 [place] HEMATOLOGY Lymphocytes 32.1 20.0 - 07/06 [place] 40.0 /2015 [place] HEMATOLOGY Monocytes 11.5 2.0 - 12.0 07/06 [place] /2016 [place] HEMATOLOGY Basophils 0.2 0.0 - 1.0 07/06 [place] /2015 [facility] HEMATOLOGY Segs-Bands # 3.5 1.5 - 8.1 07/06 [place] /2015 [facility] CARDIAC CK MB Index <1.3 0.0 - 2.5 06/21 ENZYMES /2015 [facility] CARDIAC Troponin-I <0.02 0.00 - 06/21 ENZYM[place] 0.40 /2015 [facility] CARDIAC Total CK 39 12 - 191 06/21 ENZYMES /2015 [facility] CARDIAC CK MB <0.5 0.5 - 3.6 06/21 ENZYMES /2015 [facility] CHEM PANEL Calcium Lvl 9.3 8.5 - 10.5 06/21 [facility] CHEM PANEL AGAP 11.6 10.0 - 02 MH 20.0 /2016 [facility] CHEM PANEL CO2 26 24 - 32 06/21 [facility] CHEM PANEL Sodium Lvl 141 135 - 145 06/21 [facility] CHEM PANEL BUN 10 7 - 22 06/21 [facility] CHEM PANEL Potassium 3.6 3.5 - 5.1 06/21 Lvl /2015 [facility] CHEM PANEL Chloride Lvl 107 95 - 109 06/21 [facility] CHEM PANEL eGFR 83 06/21 [facility] Comment: [facility] eGFR is City calculated using the CKD-EPI formula. In most young, healthy individuals the eGFR will be >90 mL/min/1.73m2 . The eGFR declines with age. An eGFR of 60-89 may be normal in some populations, particularly the elderly, for whom the CKD-EPI formula has not been extensively validated. Use of the eGFR is not recommended in the following populations:< br/>
Maryan viduals with unstable creatinine concentration s, including patients and those with serious co-morbid conditions.<b r/>
Patie nts with extremes in muscle mass or diet.

The data above are obtained from the National Kidney Disease Education Program (NKDEP) which additionally recommends that when the eGFR is used in patients with extremes of body mass index for purposes of drug dosing, the eGFR should be multiplied by the estimated BMI. CHEM PANEL Creatinine 0.82 0.50 - 02 MH Lvl 1.40 /2015 [facility] CHEM PANEL Glucose Lvl 97 70 - 99 06/21 [facility] HEMATOLOGY Basophils # 0.0 0.0 - 0.2 06/21 [facility] HEMATOLOGY Lymphocytes 29.6 20.0 - 02 MH 40.0 [facility] HEMATOLOGY Monocytes # 0.5 0.0 - 0.8 06/21 [facility] HEMATOLOGY Eosinophils 0.0 0.0 - 0.5 06/21 MH # /2015 [facility] HEMATOLOGY Basophils 0.2 0.0 - 1.0 06/21 [facility] HEMATOLOGY Lymphocytes 1.7 1.0 - 5.5 06/21 MH # /2015 [facility] HEMATOLOGY Segs-Bands # 3.7 1.5 - 8.1 06/21 [facility] HEMATOLOGY Monocytes 7.7 2.0 - 12.0 06/21 [facility] HEMATOLOGY Eosinophils 0.0 0.0 - 4.0 / [facility] HEMATOLOGY Segs 62.5 45.0 - 02 MH 75.0 /2015 [facility] HEMATOLOGY RDW 12.5 11.5 - 02 MH 14.5 /2015 [facility] HEMATOLOGY MCHC 32.8 32.0 - 02/ MH 36.0 /2015 [facility] HEMATOLOGY MCH 28.0 27.0 - 02/ MH 31.0 [facility] HEMATOLOGY MCV 85.3 80.0 - 02 MH 98.0 [facility] HEMATOLOGY Hct 36.6 36.0 - 02/ MH 48.0 /2016 [facility] HEMATOLOGY Hgb 12.0 12.0 - 06/21 16.0 /2015 [facility] HEMATOLOGY WBC 5.9 3.7 - 10.4 06/21 [facility] HEMATOLOGY RBC 4.29 4.20 - 02 5.40 /2015 [facility] HEMATOLOGY MPV 8.5 7.4 - 10.4 06/21 [facility] HEMATOLOGY Platelet 192 133 - 450 06/21 [facility] URINE AND UA <=1.0 0.1 - 1.0 06/21 STOOL Urobilinogen mg/dL /2015 [facility] URINE AND UA Ketones Negative 06/21 STOOL [facility] URINE AND UA RBC <1 0 - 2 06/21 STOOL [facility] URINE AND UA Color Light Yellow Yellow 06/21 STOOL *NA* /2015 [facility] (06/21/15 1:00 PM) [facility] URINE AND UA Turbidity Clear Clear 06/21 STOOL (06/21/15 1:00 PM) /2015 [facility] URINE AND UA Sq Epi Few /LPF Few /LPF 06/21 STOOL [facility] URINE AND UA WBC 1 0 - 5 06/21 STOOL [facility] URINE AND UA Blood Negative Negative 06/21 STOOL (06/21/15 1:00 PM) /2015 [facility] URINE AND UA Nitrite Negative Negative 06/21 STOOL (06/21/15 1:00 PM) [facility] URINE AND UA Leuk Est Negative Negative 06/21 STOOL (06/21/15 1:00 PM) [facility] URINE AND UA Glucose Negative Negative 06/21 STOOL mg/dL mg/dL /2015 [facility] URINE AND UA Bili Negative Negative 06/21 STOOL *NA* /2015 [facility] (06/21/15 1:00 PM) [facility] URINE AND UA Spec Grav 1.011 <=1.030 06/21 STOOL [facility] URINE AND UA pH 8.0 5.0 - 8.0 06/21 STOOL [facility] URINE AND UA Protein Negative Negative 06/21 STOOL mg/dL mg/dL /2015 [facility] Pathology Reports No Data Provided for This Section Diagnostic Reports Report Value Date Source Ext Lower Arterial Examination: Ext Lower Arterial Doppler bila t US 09/26/2015 [facility] Doppler bilat US Provided History: Pain, Limb IMPRESSION: 1. No evidence of arterial o cclusion or evidence of severe peripheral vascular disease 2. 3.9 x 1 x 2.6 cm right popliteal cyst. DISCUSSION: Noninvasive felix rial Doppler studies of both lower extremities was completed. Studies of the left lower ex tremity demonstrate normal triphasic waveforms with no evidence of high velocities that would otherwise suggest stenosis. Studies of the right lower e xtremity demonstrate no evidence of arterial occlusion or high velocities that would suggest vascular stenosis. Of note is a fairly prominent 3.9 x 1 x 2.6 cm ovoid popliteal fluid collection consistent with a slightly complex popliteal cyst containing minimal internal debris. No vascular flow within the cystic mass is evident that would otherwise suggest pseudoaneurysm. Chest 2 views DX Exam: Two-view chest x-ray 09/25/2015 Minesh Mckeon Reason for Exam: Chest pain Comparison Exam: Chest x-ray 08/07/2015 Discussion: Cardiomediastinal silhouette is within normal limits. Both hemidiaphragms well visualized. No pulmonary edema or pleural effusions. No focal lung consolidations. Trachea is midline. No acute bony abnormalities. Impression: 1. No acute cardiopulmonary abnormalities. Brain wo contrast CT CLINICAL HISTORY:Headache with Dizzines s and Giddiness. 09/25/2015 [place] AGE: 55 years GENDER: Female TECHNIQUE: Axial scans of th e brain without contrast including multiplanar computer-generated reformations. Total Dose Length Product: 735.66. mGy-cm There is no CT evidence of a cute intracranial hemorrhage, mass effect or midline shift. There is preservation of the stark-white matter d ifferentiation.. There is no extra-axial fluid collection. Ventricles, subarachnoid spa cole and sulci are mildly prominent suggesting mild atrophy -most prominent in the frontal lobes.. Orbits are symmetric. The paranasal sinuses and mastoid air cells wel l pneumatized. IMPRESSION: No acute intracranial findings. Spine Thoracic w/wo EXAM: MRI THORACIC SPINE WITH AND WITHOU T CONTRAST 09/11/2015 LIZ Venkatesh contrast MRI DATE: 09/11/2015 INDICATION: G81.91 Hemiplegia, unspecified aff ecting right dominant side COMPARISON: None TECHNIQUE: Multiplanar, mult isequence MR imaging of the thoracic spine were obtained before and after the intravenous administration of contrast material.. FINDINGS: The height and the structure of the thoracic vertebral bodies are well- maintained. No bone marrow signal abnormality. No acute fracture or dislocation. No spinal canal stenosis or cord compression. Shallow annular bulges at T4-T5 and T6-T7. Morphology and signal intens ity emanating from the spinal cord are unremarkable. No mass or abnormal enhancement. No foraminal narrowing or nerve root impingement . IMPRESSION: No cord signal changes. No mass or abnormal enha ncement. No canal stenosis or foraminal narrowing Spine lumbar w/wo EXAM: MRI LUMBAR SPINE WITHOUT AND WITH CONTRA ST 09/11/2015 LIZ Riddle contrast MRI DATE: 09/11/2015 at 1733 hours INDICATION: G81.91 Hemiplegia, unspecified aff ecting right dominant side COMPARISON: None. TECHNIQUE: Sagittal T1, sagi ttal T2, sagittal T2 with fat saturation, axial T1, and axial T2-weighted images of the lumbar spine are obtained without contrast. Postcontrast axial and sagittal T1-weighted fat saturated images were obtained. DISCUSSION: Normal lumbar segmentation i s assumed with the lowest fully formed intervertebral disc space labeled as L5-S1 for the purpose of this examination. Vertebral alignment is anato trista. Vertebral heights are preserved. There is no significant bone marrow signal abnormality. The conus medullaris termina patrice at the mid L1. It has a normal contour and normal signal characteristics. No intradural pathology is identified. Disc spaces, spinal canal and neural foramina ar e as follows: T12-L1: Normal disc signal w ith preservation of disc height. No evidence of spinal canal stenosis. No significant facet hypertrophy. No significant neural foramina stenosis. L1-L2: Normal disc signal wi th preservation of disc height. No evidence of spinal canal stenosis. No significant facet hypertrophy. No significant neural foramina stenosis. L2-L3: Normal disc signal wi th preservation of disc height. No evidence of spinal canal stenosis. No significant facet hypertrophy. No significant neural foramina stenosis. L3-L4: Mild degenerative dis c desiccation with preservation of disc height. Mild diffuse disc bulge. No evidence of spinal canal stenosis. Bilateral mild facet hypertrophy. No significant neural foramina stenosis. L4-L5: Mild degenerative dis c desiccation with preservation of disc height. Mild diffuse disc bulge. No evidence of spinal canal stenosis. Bilateral mild facet hypertrophy. Disc bulge and bilateral face t hypertrophy resulted in bi lateral mild neural foramina narrowing, causing encroachment upon exiting L4 nerve root without nerve root compression. L5-S1: Normal disc signal wi th preservation of disc height. No evidence of spinal canal stenosis. No significant facet hypertrophy. No significant neural foramina stenosis. Both SI joints appear unrema rkable. No significant abnormality within the visualized paraspinous musculature. There is no evidence of hydronephrosis bilaterally. Note is made of right renal cyst. Note is made of retroaortic left renal vein. No abnormal enhancement within spine on postcont rast imaging. IMPRESSION: 1. Mild degenerative change s at L3-L4 and L4-L5 without significant spinal canal stenosis. 2. Mild diffuse bulge and b ilateral facet hypertrophy at L4-L5 resulted in bilateral mild neural foramina narrowing, causing encroachment upon exiting L4 nerve root without nerve root compression. 3. No abnormal enhancement within the spine. 4. Simple appearing right renal cyst. Retroaort ic left renal vein. Spine cervical w/wo EXAM: MRI CERVICAL SPINE WITH AND WITHOU T CONTRAST 09/11/2015 [facility] [place] contrast MRI DATE: 09/11/2015 4:05 PM CDT INDICATION: 55 years old Fem fabiano patient with history of G81.91 Hemiplegia, unspecified affecting right dominant side. COMPARISON: None. TECHNIQUE: Multiplanar, mult isequence noncontrast MR imaging of the cervical spine. Postcontrast sagittal and axial T1-weighted fat saturation images are provided. FINDINGS: Vertebral alignment is near anatomic without sig nificant subluxation. Mild degenerative vertebral body height loss at C5 and C6 otherwise vertebral body heights are grossly maintained. No significant bone marrow signal abnormality is identified. Craniovertebral junction carmen ears unremarkable. Cerebellar tonsils are normal in position. There is normal signal intensity of the cervical spinal cord. Prevertebral and paravertebral soft tissue appea r unremarkable. Disc level analysis as follows: C2-C3: Degenerative disc trevor iccation with preservation of the disc height. There is no significant spinal canal stenosis. No significant neural foramina stenosis is identified. C3-C4: Degenerative disc trevor iccation with preservation of the disc height. There is no significant spinal canal stenosis. No significant neural foramina stenosis is identified. C4-C5: Degenerative disc trevor iccation with preservation of the disc height. Minimal diffuse disc bulge. There is no significant spinal canal stenosis. Bilateral mild neural foramina narrowing from uncovertebral and facet joint hypertrophy. C5-C6: Degenerative disc trevor iccation with preservation of the disc height. Diffuse disc bulge and ligamentum flavum buckling causing near complete effacement of the subarachnoid fluid spaces and mild sp inal canal stenosis with res idual thecal sac measures 7 mm in AP dimension. Mild to moderate right and mild left neural foramina narrowing from uncovertebral and facet joint hypertrophy. C6-C7: Degenerative disc trevor iccation with preservation of the disc height. There is no significant spinal canal stenosis. No significant neural foramina stenosis is identified. C7-T1: Normal disc signal wi th preservation of the disc height. There is no significant spinal canal stenosis. No significant neural foramina stenosis is identified. No abnormal enhancement within cervical spine on postcontrast imaging. IMPRESSION: 1. Disc bulge and ligamentum flavum buckling causing mild spinal canal stenosis at C5-C6. 2. Neural foramina narrowing at C4-C5 and C5-C6 as detailed above. Brain w/wo contrast EXAM: MRI BRAIN WITH AND WITHOUT CONTRAST [facility] DATE: 09/11/2015 INDICATION: G81.91 Hemiplegia, unspecified aff ecting right dominant side COMPARISON: CT brain 08/07/2015 and 06/21/2015 TECHNIQUE: Multiplanar, mult isequence non-contrast MRI images of the brain. Multiplanar imaging is subsequently obtained following intravenous gadolinium contrast. IV contrast: 8 mL MultiHance FINDINGS: Few hyperintensity T2 lesion s in the supratentorial white matter in both frontal hemispheres. No hydrocephalus, midline shift or mass effect. No acute hemorrhage or restricted diffusion. No mass or abnormal enhancement. Pineal region, pituitary gla nd, cranial cervical junction, orbits and internal auditory canals are unremarkable. No bony lesions. Resolution of the air-fluid level within the left maxillary sinus. Major intracranial flow voids are well-maintained. IMPRESSION: No acute intracranial abnormality Few hyperintensity T2 foci i n the supratentorial white matter most consistent with small vessel disease. Resolution of the air-fluid level within the lef t maxillary sinus. Unremarkable MRI exam of the brain. Carotid artery CLINICAL HISTORY : weakness , Other- See Note to Radiologist 08/08/2015 [facility] Doppler bilat US EXAM : Bilateral Carotid Duplex 08/07/2015 6:12 PM CDT COMPARISON : none TECHNIQUE : Utilizing a line ar array transducer, real-time ultrasound evaluation of the bilateral carotid arteries was performed. Color Doppler imaging was used assess vascular flow. Measurements and stenosis evaluation is based on NASCET criteria. Velocity criteria were based on SRU consensus co nference criteria FINDINGS : The right common carotid art krystian is normal in appearance measuring 5.9 mm in diameter. The right-sided carotid bulb is normal in appearance without significant atherosclerotic plaque or narrowing on grayscale image. The right internal carotid a rtery is normal in appearance without significant atherosclerotic plaque. The right external carotid a rtery is normal in appearance without significant atherosclerotic plaque. There is normal low resistan ce waveform in the right common and internal carotid arteries. There is normal high resistance waveform in the right external carotid artery. There is normal directional flow in the right ve rtebral artery. The left common carotid felix ry is normal in appearance measuring 5.0 mm in diameter. The left-sided carotid bulb is normal in appearance without significant atherosclerotic plaque or narrowing on grayscale image. The left internal carotid ar shanthi is normal in appearance without significant atherosclerotic plaque. The left external carotid ar shanthi is normal in appearance without significant atherosclerotic plaque. There is normal low resistan ce waveform in the left common and internal carotid arteries. There is normal high resistance waveform in the left external carotid artery. There is normal directional flow in the left olman tebral artery. Peak Velocities: Common carotid artery: 81 cm/sec right, 92 cm/se c left. Internal carotid artery: 76 cm/sec right, 66 cm/ sec left. ICA/CCA ratio: 0.9 right, 0.7 left External carotid artery: 88 cm/s right, 55 cm/s left IMPRESSION: 1. No hemodynamically signif icant stenoses of the bilateral carotid arteries by velocity criteria. 2. No significant atherosclerotic plaque or narr owing on grayscale images. Chest 1view DX EXAMINATION: Chest, 1 view 08/07/2015 [facility] HISTORY: Dizziness; FINDINGS: Single frontal vie w of the chest is submitted for interpretation and compared to 07/06/2015. The patient is rotated to th e right. The cardiomediastinal silhouette is within normal limits. There are no pleural effusions or pneumothorax. The lungs are clear without focal pneumonic consolidation or pulmonary edema. IMPRESSION: 1. No radiographic evidence of acute cardiopulmo nary disease. Brain wo contrast CT CT BRAIN WITHOUT CONTRAST 08/07/2015 [facility] COMPARISON: 06/21/2015 CT exam. COMMENTS: Coronal and sagittal multipl carlos reformatted images are also submitted for interpretation. The DLP is 687 mGy - cm. No intracranial hemorrhage, ventriculomegaly, or midline shift is seen. Beam hardening artifacts obscure portions of the exam. Mild bilateral frontal cerebral atrophy is again seen. 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 Left middle cranial fossa 0.7 cm osteoma versus calcified meningioma is also stable. Significant left maxillary sinusitis with air-fl uid level is present. IMPRESSION: 1. No acute intracranial hemorrhage, parenchymal mass or acute ischemia seen. 2. Stable right frontal sinu s osteoma and left middle cranial fossa osteoma versus calcified meningioma. 3. Significant left maxillary sinusitis. 4. Bilateral frontal lobe mild atrophy. Chest 1view DX EXAM: AP CHEST X-RAY 07/06/2015 [place] DATE: 07/06/2015 4:17 PM [employer] . CLINICAL INDICATION: Chest pain TECHNIQUE: SINGLE FRONTAL VIEW OF THE CHEST COMPARISON: 06/21/2015 chest x-ray FINDINGS: The lungs are well -inflated and clear. Heart and mediastinal contours are normal. Bony thorax is unremarkable. IMPRESSION: No acute intrath oracic process or worrisome change compared to previous study Brain wo contrast CT Exam: CT scan of the brain without contrast 06/21/2015 [facility] Reason for Exam: Headache with Dizziness and Gid diness Comparison Exam: None Technique: Multiple axial im ages were obtained of the brain. 5 mm slices were acquired without injection of intravenous contrast. Reformatted sagittal and coronal images were obtained for additional tammy gnostic information. Total exam DLP = 671 mGy-cm . Discussion: No abnormal fluid collection s, space-occupying lesions, hydrocephalus, or midline shift. No evidence seen for acute cortical-based ischemic infarct or intra-axial/extra-axial hematoma. No skull fractures identifie d. The orbits are unremarkable. Visualized portion of the left maxillary sinus is heavily opacified. Impression: 1. No acute intracranial abnormalities apprecia yue. Chest 1view DX CLINICAL HISTORY: Chest pain 06/21/2015 [facility] AGE: 54 years GENDER: Female TECHNIQUE: Single AP, portable chest radiograph, 1 view. COMPARISON: None FINDINGS: The cardiomediastinal silhouette is within wolf l limits. No focal airspace or interst itial opacities are seen. No pleural effusions. No pneumothorax. No significant osseous abnormalities are identif ied. IMPRESSION: No acute cardiopulmonary disease. Consultation Notes No Data Provided for This Section Discharge Summaries No Data Provided for This Section History and Physicals No Data Provided for This Section Vital Signs Vital Sign Value Date Comments Source Temperature Oral (F) 97.5 F 09/27/2015 [place] Heart Rate 80 09/27/2015 [place] Rate 18 09/27/2015 [place] Systolic (mm Hg) 143 09/27/2015 [place] Diastolic (mm Hg) 90 09/27/2015 [place] [facility] Systolic (mm Hg) 127 09/26/2015 [place] Diastolic (mm Hg) 80 09/26/2015 [place] Respitory Rate 18 09/26/2015 [facility] [place] Heart Rate 78 09/26/2015 [place] Temperature Oral (F) 98.0 F 09/26/2015 [place] Temperature Oral (F) 98.6 F 09/26/2015 [place] Heart Rate 80 09/26/2015 [place] Systolic (mm Hg) 121 09/26/2015 [facility] [place] Diastolic (mm Hg) 78 09/26/2015 [place] Respitory Rate 18 09/26/2015 [place] Weight 66.563 09/26/2015 [place] Height 162.56 cm 09/26/2015 [place] Weight 72.727 09/26/2015 [place] BMI Calculated 27.52 09/26/2015 [place] Weight 72.727 09/25/2015 [place] Height 167.64 cm 09/12/2015 [facility] Weight 75 09[facility]12/2015 [facility] BMI Calculated 26.69 09/12/2015 [facility] Respitory Rate 24 08/09/2015 [facility] Systolic (mm Hg) 119 08/09/2015 [facility] Diastolic (mm Hg) 72 [facility] Respitory Rate 22 08/09/2015 [facility] Systolic (mm Hg) 105 08/09/2015 [facility] Diastolic (mm Hg) 66 08/09/2015 [facility] [facility] [place] Systolic (mm Hg) 108 08/09/2015 [facility] Diastolic (mm Hg) 68 08/09/2015 [facility] [place] Respitory Rate 20 08/09/2015 [facility] Temperature Oral (F) 97.7 F 08/08/[address] [facility] Oral (F) 98.1 F 08/08/2015 [facility] Weight 71.6 08/08/2015 [facility] BMI Calculated 27.09 08/08/2015 [facility] Height 162.56 cm 08/08/2015 [facility] Heart Rate 71 08/07/2015 [facility] Height 162.56 cm 08/07/2015 [facility] BMI Calculated 25.8 08/07/2015 [facility] Temperature Oral (F) 98.0 F 08/07/2015 [facility] Weight 68.182 08/07/2015 [facility] Temperature Oral (F) 98.5 F 07/06/2015 [place] Systolic (mm Hg) 108 07/06/2015 [place] Diastolic (mm Hg) 79 07/06/2015 [place] [facility] Respitory Rate 18 07/06/2015 [place] Heart Rate 67 07/06/2015 [place] BMI Calculated 28.21 07/06/2015 [place] Weight 74.545 07/06/2015 [place] Height 162.56 cm 07/06/2015 [place] Respitory Rate 18 07/06/2015 [place] Temperature Oral (F) 98.5 F 07/06/2015 [place] [facility] Rate 79 07/06/2015 [place] Systolic (mm Hg) 124 07/06/2015 [place] Diastolic (mm Hg) 82 07/06/2015 [place] [facility]itory Rate 18 06/22/2015 [facility] Systolic (mm Hg) 170 06/22/2015 [facility] Diastolic (mm Hg) 90 06/22/2015 [facility] Systolic (mm Hg) 151 06/21/2015 [facility] Diastolic (mm Hg) 81 06/21/2015 [facility] Resp[facility] Rate 17 06/21/2015 [facility] Systolic (mm Hg) 147 06/21/2015 [facility] Diastolic (mm Hg) 82 06/21/2015 [facility] Respitory Rate 18 06/21/2015 [facility] La[facility] it[facility] Height 162.56 cm 06/21/2015 [facility] Weight 78.182 06/21/2015 [facility] BMI Calculated 29.59 06/21/2015 [facility] it[facility] Heart Rate 62 06/21/2015 [facility] Temperature Oral (F) 98.4 F 06/21/2015 [facility] Encounters Location Location Encounter Encounter Reason Attending ADM DC Stat us Source Details Type Number For Provider Date Date Visit [facility] [place] [id number] Moath Amro 06/21 06/[address] [place] [address] [facility] [id number] Shamar Weist 07/06 07/06 [place] [facility] [id number] Tiruchengod 08/06 08/08 [place] [id number] Jose 09/10 09/11 [facility] [id number] Jose 09/11 09/12 [place] 3 [facility] OBS [id number] Yohannes 09/24 09/26 [facility] [place] [facility] 4 [facility] [place] Patient Procedures Procedure Code Date Perfomer Comments Source Cardiac [id number] [facility] catheterization of Medica l right and left heart Cent er, for ventriculography [facility] [place] Assessment and Plan Assessment and Plan Date Source Extracted from:Title: Cardiology Consult 09/27/2015 [facility] Author: Veena Barger LINE SERVICE PERSON Date: 09/26/15 Cardiology Consult Attending: Yohannes Cope MD Service: Internal Medicine Code status: None Specified=FULL CODE Reason for Admission: HYPOTENSION, DIZZINESS Working DRG: None Documented Isolation: None Documented Consulting Physicians: Luis M Saleem MD Office: [phone] MSO: [id number] Service: Cardiology Darline Celis MD Office: MSO: [id number] Service: Endocrinology, Medicine Kojo Colunga MD Office: [phone] MSO: [id number] Service: Medicine Reason for consultation: HTN History of present illness: This is a 55 year old female with a past medical history of hypothyroidism, rheumatoid arthritis, and HTN who presents with complaints of dizziness. Yesterday she states she began to feel dizzy and leth argic, went to see her psychiatrist and she was sent from there to the ED. Upon arrival her blood pressure was noted to be low and she was admitted for further evaluation and treatment. She was found to be hypothyroid and was seen by endocrin e and her medications were adjusted. We are consulted for blood pressure management. She denies any actual syncope and her symptoms are somewhat improved today. S he does complain of chest pain with some activity but "not always", she states she has had an ultrasound on her right leg about 4 years ago that showed, "70% blockage in her femoral arter y" , however, she has never had a follow up with this testing. She states she has pain in both of her legs with walking that is relieved with rest. She denies any shortness of breath, le edema, fever, chills, nausea, or vomiting. She states she has seen a Set Up Mold Technician i n the past many years ago but stopped following because "her palpitations stopped". She is on Metoprolol BID. She has had a reported angiogram in the 90 s that was negative and a stress test a few years ago that w as negative. Past Medical History: Anxiety Gastritis Major depression Hypothyroid Hypercholesteremia Rheumatoid arthritis Hypertension Suicidal thoughts Depression Optic neuritis Family History: Father: [place] - Lung cancer Mother: Anxiety; Depression; High blood pressure; Stroke Brother: Bipolar disorder; Suicidal thoughts Social History: Alcohol Details: Never Tobacco Details: Use: Never smoker. Ready to ch xu: No. Household tobacco concerns: No. Tobacco smoke exposure: None. Did the Patient Smoke Cigarettes Anytime During the Last 365 Days? No. Cessation Counseling Provided? No. Details: Use: Never smoker. Tobacco smo ke exposure: None. Did the Patient Smoke Cigarettes Anytime During the Last 365 Days? No. Cessation Counseling Provided? No. Substance Abuse Details: Use: None. Surgical History: Cardiac catheterization of right and left heart for ventricu lography Review of Systems: Constitutional: Denies fever or chills Eyes: Denies change in visual acuity HENT: Denies nasal congestion or sore throat Respiratory: Denies cough or shortness of breath Cardiovascular: Denies chest pain or edema GI: Denies abdominal pain, nausea, vomiting, bloody stools o r diarrhea : Denies dysuria Musculoskeletal: leg pain with walking Integument: Denies rash Neurologic: dizziness Endocrine: Denies polyuria or polydipsia Lymphatic: Denies swollen glands Psychiatric: Denies depression or anxiety Otherwise 14 point review of systems is negative Physical Exam: Gen: NAD, AAO x3 Head: NC/AT Neck: Supple Chest: No deformities, rises and falls symmetrically with br eathing Lungs: Clear, no wheezing, rales or rhonchi Cardiac: JVD appears flat, normal HJR, R RR, Normal S1 and S2, no apparent S3 or S4, no rubs, gallops, or murmurs. Abd: Soft, NT, +BS Ext: Warm to the touch, no appreciable edema Neuro: CN II-XII intact Vascular: intact radial and distal pulses Vitals Tmp(F) Pulse BP RR SpO2 FIO2 09/25 11:25 98.6 80 121/78 18 93 --- 09/25 07:28 97.6 78 134/85 18 96 --- 09/25 04:00 98 75 118/74 18 98 --- 09/25 00:00 97.4 73 127/75 18 97 --- 09/24 19:44 97.3 76 114/75 18 99 --- 24 Hr Tmax: 98.6F (37.00c) at 09/25 11:2 5 Vital Signs are the last 5 in the past 48 hours. Date Wt(kg) Wt(lb) Ht(cm) Ht(in) Method 09/25 66.56 146.44 Measured 09/24 (initial) 72.73 160.00 Estimated 09/24 162.56 64.00 Stated Labs (Last four charted values) WBC 5.5 (SEPTEMBER 25) 6.9 (SEPTEMBER 24) Hgb L 11.0 (SEPTEMBER 25) L 11.6 (SEPTEMBER 24) Hct L 34.3 (SEPTEMBER 25) 36.1 (SEPTEMBER 07 8) Plt 161 (SEPTEMBER 25) 176 (SEPTEMBER 24) Na 144 (SEPTEMBER 25) 138 (SEPTEMBER 24) K 3.5 (SEPTEMBER 25) 3.6 (SEPTEMBER 24) CO2 26 (SEPTEMBER 25) 29 (SEPTEMBER 24) Cl 109 (SEPTEMBER 25) 103 (SEPTEMBER 24) Cr 1.10 (SEPTEMBER 25) H 1.65 (SEPTEMBER 07 8) BUN 12 (SEPTEMBER 25) 18 (SEPTEMBER 24) Glucose Random 82 (SEPTEMBER 25) 74 (SEPTEMBER 24) Mg 2.1 (SEPTEMBER 24) Ca 8.6 (SEPTEMBER 25) 9.2 (SEPTEMBER 24) PT 14.1 (SEPTEMBER 24) INR 1.06 (SEPTEMBER 24) PTT 29.0 (SEPTEMBER 24) Troponin <0.02 (SEPTEMBER 25 ) <0.02 (SEPTEMBER 24) <0.015 (SEPTEMBER 24) CK MB 0.7 (SEPTEMBER 25) 0.7 (SEPTEMBER 24) Total CK 80 (SEPTEMBER 25) 82 (SEPTEMBER 24) 94 (SEPTEMBER 24) Allergies: Mucinex, penicillins Continuous Infusions (1): 09/25/15 Sodium Chloride 0.9% IV 1,000 mL (NS 1,000 mL) 1,00 0 mL 125 ml/hr Medications (18) Active Scheduled Meds (9): 09/25/15 atorvastatin (Lipitor) 80 mg PO Bedtime 09/26/15 buPROPion (Wellbutrin XL) 300 mg PO Daily 09/25/15 budesonide-formoterol (Symbicor t 80/4.5 inhalation aerosol with adapter) 2 inhalation INHALATION RBID 09/25/15 diazepam 5 mg PO Bedtime 09/26/15 levothyroxine 150 microgram PO Q630AM 09/26/15 liothyronine (Cytomel) 5 microgram PO Q630AM 09/26/15 pantoprazole (Protonix) 40 mg PO Daily 09/26/15 risperidone (Risperdal) 2 mg PO BID 09/26/15 venlafaxine (Effexor XR) 225 mg PO Daily Unscheduled Meds: None PRN Meds (6): 09/25/15 acetaminophen-hydrocodone (acet aminophen-hydrocodone 325 mg-5 mg oral tablet) 2 tab PO Q4H 09/25/15 acetaminophen 650 mg PO Q4H 09/25/15 docusate 100 mg PO BID 09/25/15 morphine Sulfate 2 mg IVP Q4H 09/25/15 ondansetron 4 mg IVP Q6H 09/25/15 sodium chloride (Saline Flush 0.9%) 10 mL IVP PRN One Time Meds (2): 09/25/15 (Completed) Sodium Chloride 0. 9% IV (Sodium Chloride 0.9% (Bolus) IV) 1,000 mL IV ONCE 1,000 ml/hr 09/25/15 (Ordered) acetaminophen 650 mg PO ONCE Continuous Infusions (1): 09/25/15 Sodium Chloride 0.9% IV 1,000 mL (NS 1,000 mL) 1,00 0 mL 125 ml/hr Assessment/Plan: 1. Hypothyroidism- per Endocrine, medications have been adju sted 2. HTN- well controlled now off of Exfor ge and Metoprolol. Further recommendations to follow. 3. Claudication- will check arterial doppler now 4. HLP- resume statin 5. History of bipolar disorder- per IM Plan discussed with Dr. Saleem who agrees with this plan. Extracted from:Title: Clinical Document 08/09/2015 [facility] Author: Missael Agee MD (Jack) Date: 08/08/15 NEUROLOGY [facility] Progress Note ADDENDUM [facility] has REFUSED to send the patient's records today (UNBELIEVABLE!!!) As there is no evidence of true right we akness - and historically prior evaluation culminating in MRIs have been negative, I feel the patient can safely discharge back to her psych fa cility, today Plan of Care No Data Provided for This Section Social History Social History Date Source Social History TypeResponse 09/26/2015 [facility] [place] Substance Abuse Use: None. Alcohol Never Smoking Status Never smoker; Exposure to Tobacco Smoke None; Cigarette Smoking Last 365 Days No; Reg Smoking Cessation Counseling No Social History TypeResponse 08/08/2015 [facility] Alcohol Never Smoking Status Never smoker; Exposure to Tobacco Smoke None; Cigarette Smoking Last 365 Days No; Reg Smoking Cessation Counseling No Social History TypeResponse 08/08/2015 [facility] [place] Alcohol Never Smoking Status Never smoker; Exposure to Tobacco Smoke None; Cigarette Smoking Last 365 Days No; Reg Smoking Cessation Counseling No Social History TypeResponse 08/08/[address] [facility] [place] [place] Alcohol Never Smoking Status Never smoker; Exposure to Tobacco Smoke None; Cigarette Smoking Last 365 Days No; Reg Smoking Cessation Counseling No Family History No Data Provided for This Section Advance Directives No Data Provided for This Section Functional Status No Data Provided for This Section
[2020-06-08] MEDS ORDERED: ACETAMINOPHEN 500 MG TAB ONE (13:18)
[2020-06-08 13:50] LABS: Protime INR 1.13
[2020-06-08 13:51] LABS: Absolute Lymphocytes (CBC) 0.6 K/uL (0.7-4.9); Basophils % 0.7 % (0-1.3); Hematocrit 32.9 % (36.0-45.0); Lymphocytes % 14.1 % (15.3-44.8); MPV 8.2 fL (7.6-11.3)
[2020-06-08 14:01] LABS: SARS-COV-2 RT PCR POSITIVE (NEGATIVE)
[2020-06-08 14:12] LABS: ALT/SGPT 10 U/L (12-78); AST/SGOT 39 U/L (15-37); Albumin 3.4 g/dL (3.4-5.0); Alkaline Phosphatase 70 U/L (45-117); BUN Blood Urea Nitrogen 8 mg/dL (7-18); Bicarbonate 23 mmol/L (21-32); Bilirubin Direct 0.2 mg/dL (0-0.2); Bilirubin Total 0.5 mg/dL (0.2-1.0); Ferritin 150.6 ng/mL (8-388); Glucose Level 117 mg/dL (74-106); NT PRO-BNP 58 pg/mL (<125); Potassium 3.3 mmol/L (3.5-5.1); Sodium Level 132 mmol/L (136-145); Troponin (Emerg Dept Use Only) < 0.02 ng/mL (0.0-0.045)
--- NOTE | 2020-06-08 14:26 | RAD REPORT ---
EXAM DESCRIPTION: RAD - Chest Single View - 06/08/2020 1:44 pm CLINICAL HISTORY: SOB, fever COMPARISON: None TECHNIQUE: AP portable chest image was obtained 06/08/2020 1:44 pm . FINDINGS: Lung volumes are low. Extensive bilateral airspace opacification is present in the lung fi elds. In the current clinical environment, bilateral moderate severity COVID-19 pneumonia would be th e primary consideration. Pattern is nonspecific and non COVID-19 viral pneumonia and bacterial pneumo lorenzo are possible. Heart and vasculature are normal. No measurable pleural effusion and no pneumothora x. No acute bony abnormality seen. No acute aortic findings suspected. IMPRESSION: Extensive bilateral pneumonia pattern. In the current clinical environment, COVID-19 pne umonia would be most likely.
[2020-06-08] MEDS ORDERED: ALBUTEROL INHALER 60 PUFF/8 GM IH ONE (14:29)
[2020-06-08] MEDS ORDERED: METHYLPREDNISOLONE 125 MG INJ ONE (14:29)
--- NOTE | 2020-06-08 15:07 | ER ---
Nurse's Notes [facility] Name: Aniya Foreman Age: 59 yrs Sex: Female : 1960 Arrival Date: 06/08/2020 Time: 12:12 Bed 19 Private MD: Diagnosis: Pneumonia due to SARS-associated coronavirus Presentation: 06/08 12:39 Chief complaint: Patient states: fever x 5 days. Pt has no other complaints TMAX 101.3. ss Coronavirus screen: fever, Client presents with at least one sign or symptom that may indicate coronavirus-19. Standard/surgical mask placed on the client. Ebola Screen: Patient denies exposure to infectious person. Patient denies travel to an Ebola-affected area in the 21 days before illness onset. Risk Assessment: Do you want to hurt yourself or someone else? Patient reports no desire to harm self or others. Onset of symptoms was June 03, 2020. 12:39 Method Of Arrival: Ambulatory ss 12:39 Acuity: VIDAL 3 ss 13:53 Initial Sepsis Screen: Does the patient meet any 2 criteria? Temp <36.0*C (96.8*F)) or ll1 > 38.3*C (100.9*F). No. Patient's initial sepsis screen is negative. Does the patient have a suspected source of infection? Yes: Productive cough/pneumonia. Historical: - Allergies: 13:56 PENICILLINS; ll1 - PMHx: 13:56 Hypertension; High Cholesterol; ll1 - PSHx: 13:56 None; ll1 - Immunization history:: Adult Immunizations up to date. - Social history:: Smoking status: Patient denies any tobacco usage or history of. Screenin:51 Abuse screen: Denies threats or abuse. Nutritional screening: No deficits noted. ll1 Tuberculosis screening: No symptoms or risk factors identified. Fall Risk IV access (20 points). Total Marcos Fall Scale indicates No Risk (0-24 pts). Assessment: 12:55 General: Appears distressed, uncomfortable, Behavior is calm, cooperative, appropriate ll1 for age. Pain: Denies pain. Neuro: No deficits noted. Cardiovascular: No deficits noted. Respiratory: Reports shortness of breath labored breathing. GI: No deficits noted. 13:56 Reassessment: No changes from previously documented assessment. Patient and/or family ll1 updated on plan of care and expected duration. Pain level reassessed. O2 sat. 87% RA after walking to restroom and back. 15:00 Reassessment: No changes from previously documented assessment. Patient and/or family ll1 updated on plan of care and expected duration. Pain level reassessed. 19:43 Reassessment: report given to GERMAN Nunn. ll2 Vital Signs: 12:48 BP 143 / 91 LA (auto/lg); Pulse 86; Resp 18; Temp 102.4(O); Pulse Ox 92% on R/A; Weight jp3 99.79 kg; Height 5 ft. 4 in. (162.56 cm); Pain 0/10; 12:55 Pulse Ox 98% on 2.5 lpm NC; jp3 13:21 BP 135 / 85 LA (auto/reg); Pulse 88; Resp 18; Pulse Ox 99% on 2.5 lpm NC; Pain 0/10; jp3 13:51 BP 135 / 85; Pulse 83; Resp 20; Temp 101.4; Pulse Ox 94% on 2 lpm NC; ll1 15:03 BP 117 / 72; Pulse 80; Resp 20; Pulse Ox 94% on 2 lpm NC; ll1 15:08 Pulse 79; Resp 20; Temp 99.1; Pulse Ox 95% on 2.5 lpm NC; ll1 12:48 Body Mass Index 37.76 (99.79 kg, 162.56 cm) jp3 ED Course: 12:12 Patient arrived in ED. ds1 12:33 Johnny Rowe, GERMAN is Primary Nurse. ll1 12:33 Arm band placed on Patient placed in an exam room, on a stretcher. ll1 12:35 Valdemar Jordan NP is PHCP. pm1 12:35 Trev Moreno MD is Attending Physician. pm1 12:41 Triage completed. ss 12:55 Placed in gown. Bed in low position. Call light in reach. Side rails up X 1. Verbal jp3 reassurance given. Pulse ox on. NIBP on. 12:55 Oxygen administration via nasal cannula \T\ 2L/min Response to oxygen therapy: symptoms jp3 improved. 13:05 No provider procedures requiring assistance completed. Inserted saline lock: 22 gauge ll1 in left antecubital area, using aseptic technique. Blood collected. 13:08 COVID swab sent to lab. Flu and/or RSV swab sent to lab. Strep swab sent to lab. jp3 13:44 CXR XRAY In Process Unspecified. EDMS 13:46 Lab(s) recollected, by me, sent to lab. jp3 15:02 Guille More is Hospitalizing Provider. pm1 19:44 Patient admitted, IV remains in place. ll2 Administered Medications: 13:04 Drug: Tylenol 1000 mg Route: PO; ll1 15:10 Follow up: Response: No adverse reaction; Temperature is decreased; RASS: Alert and ll1 Calm (0) 14:18 Drug: SOLU-Medrol 125 mg Route: IVP; Site: left antecubital; ll1 15:09 Follow up: Response: No adverse reaction; RASS: Alert and Calm (0) ll1 14:18 Drug: Albuterol HFA Inhaler 2 puffs Route: Inhalation; ll1 15:09 Follow up: Response: No adverse reaction; RASS: Alert and Calm (0) 1 Outcome: 15:06 Decision to Hospitalize by Provider. pm1 19:43 Admitted to Med/surg accompanied by tech, via wheelchair, Report called to GERMAN Nunn ll2 19:43 Condition: stable 19:43 Instructed on the need for admit. 19:44 Patient left the ED. ll2 Signatures: Dispatcher [employer] [facility] Sharon Weems ds1 Ayala Tanner RN RN ss Marinas, Patrick, PAYROLL ASSISTANT PAYROLL ASSISTANT pm1 Pramod Yao jp3 Sarah Beth Patton RN RN ll2 Johnny Rowe RN RN ll1
--- NOTE | 2020-06-08 15:07 | EDPHYS ---
Physician Documentation [facility] Name: Aniya Foreman Age: 59 yrs Sex: Female : 1960 Arrival Date: 06/08/2020 Time: 12:12 Bed 19 Private MD: ED Physician Trev Moreno HPI: 06/08 13:09 This 59 yrs old Female presents to ER via Ambulatory with complaints of Fever.pm1 13:09 The patient has shortness of breath at rest. Onset: The symptoms/episode began/occurred pm1 3 day(s) ago. Duration: The symptoms are continuous, and are steadily getting worse. The patient's shortness of breath is aggravated by exertion, is alleviated by nothing. Associated signs and symptoms: Pertinent positives: non-productive cough, fever, Pertinent negatives: chest pain, nausea, vomiting, diarrhea. Severity of symptoms: in the emergency department the symptoms are worse. The patient has not experienced similar symptoms in the past. The patient has not recently seen a physician. Historical: - Allergies: 13:56 PENICILLINS; ll1 - PMHx: 13:56 Hypertension; High Cholesterol; ll1 - PSHx: 13:56 None; ll1 - Immunization history:: Adult Immunizations up to date. - Social history:: Smoking status: Patient denies any tobacco usage or history of. ROS: 13:09 ENT: Negative for injury, pain, and discharge, Neck: Negative for injury, pain, and pm1 swelling, Cardiovascular: Negative for chest pain, palpitations, and edema. 13:09 Abdomen/GI: Negative for abdominal pain, nausea, vomiting, diarrhea, and constipation, Back: Negative for injury and pain, MS/Extremity: Negative for injury and deformity, Skin: Negative for injury, rash, and discoloration, Neuro: Negative for headache, weakness, numbness, tingling, and seizure. 13:09 Constitutional: Positive for fever, Negative for poor PO intake. 13:09 Respiratory: Positive for cough, shortness of breath, Negative for wheezing. Exam: 13:09 Constitutional: This is a well developed, well nourished patient who is awake, alert, pm1 and in no acute distress. Head/Face: Normocephalic, atraumatic. Chest/axilla: Normal chest wall appearance and motion. Nontender with no deformity. No lesions are appreciated. 13:09 Back: No spinal tenderness. No costovertebral tenderness. Full range of motion. Skin: Warm, dry with normal turgor. Normal color with no rashes, no lesions, and no evidence of cellulitis. MS/ Extremity: Pulses equal, no cyanosis. Neurovascular intact. Full, normal range of motion. 13:09 Cardiovascular: Exam negative for acute changes, Rate: normal, Rhythm: regular, Pulses: no pulse deficits are appreciated, Edema: is not appreciated. 13:09 Respiratory: the patient does not display signs of respiratory distress, Breath sounds: decreased breath sounds, are located in both bases. 13:09 Abdomen/GI: Inspection: abdomen appears normal, Palpation: abdomen is soft and non-tender, in all quadrants. 13:09 Neuro: Exam negative for acute changes, Orientation: is normal, Mentation: is normal, Motor: is normal, moves all fours. Vital Signs: 12:48 BP 143 / 91 LA (auto/lg); Pulse 86; Resp 18; Temp 102.4(O); Pulse Ox 92% on R/A; Weight jp3 99.79 kg; Height 5 ft. 4 in. (162.56 cm); Pain 0/10; 12:55 Pulse Ox 98% on 2.5 lpm NC; jp3 13:21 BP 135 / 85 LA (auto/reg); Pulse 88; Resp 18; Pulse Ox 99% on 2.5 lpm NC; Pain 0/10; jp3 13:51 BP 135 / 85; Pulse 83; Resp 20; Temp 101.4; Pulse Ox 94% on 2 lpm NC; ll1 15:03 BP 117 / 72; Pulse 80; Resp 20; Pulse Ox 94% on 2 lpm NC; ll1 15:08 Pulse 79; Resp 20; Temp 99.1; Pulse Ox 95% on 2.5 lpm NC; ll1 12:48 Body Mass Index 37.76 (99.79 kg, 162.56 cm) 3 MDM: 12:43 Patient medically screened. pm1 14:18 Data reviewed: vital signs. pm1 14:59 Counseling: I had a detailed discussion with the patient and/or guardian regarding: the pm1 historical points, exam findings, and any diagnostic results supporting the discharge/admit diagnosis, lab results, radiology results, the need for further work-up and treatment in the hospital. 14:59 ED course: Patient covid positive, extensive bilateral pneumonia per radiologist, and pm1 supplemental oxygen requirements (92% on RA on arrival to ER and 87% on RA after walking to the restroom - 15 feet), therefore I will admit the patient to the hospital. 15:06 Physician consultation: Guille More was called at 15:06, regarding admission, pm1 patient's condition, and will see patient. 06/08 12:52 Order name: Strep; Complete Time: 13:47 pm06/08 12:59 Order name: Basic Metabolic Panel pm1 06/08 12:59 Order name: CBC with Diff pm06/08 12:59 Order name: LFT's pm06/08 12:59 Order name: Magnesium pm06/08 12:59 Order name: NT PRO-BNP pm06/08 12:59 Order name: PT-INR pm06/08 12:59 Order name: Troponin (emerg Dept Use Only); Complete Time: 14:14 pm06/08 12:59 Order name: Blood Culture Adult (2) pm06/08 12:59 Order name: Ferritin; Complete Time: 14:14 pm06/08 12:59 Order name: Lactate; Complete Time: 14:02 pm06/08 12:59 Order name: CRP; Complete Time: 14:14 pm06/08 12:52 Order name: CXR XRAY; Complete Time: 14:27 pm06/08 12:52 Order name: Droplet/Contact Precautions; Complete Time: 12:56 pm06/08 12:52 Order name: Labs collected and sent; Complete Time: 13:22 pm06/08 12:59 Order name: EKG; Complete Time: 13:01 pm06/08 13:00 Order name: Basic Metabolic Panel; Complete Time: 14:14 EDMS 06/08 13:00 Order name: CBC with Automated Diff; Complete Time: 14:02 EDMS 06/08 13:00 Order name: Liver (Hepatic) Function; Complete Time: 14:14 EDMS 06/08 13:00 Order name: Magnesium; Complete Time: 14:14 EDMS 06/08 13:00 Order name: NT PRO-BNP; Complete Time: 14:14 EDMS 06/08 13:00 Order name: Protime (+INR); Complete Time: 14:02 EDMS 06/08 13:33 Order name: Throat Culture EDNC 06/08 14:01 Order name: COVID-19/FLU A+B; Complete Time: 14:02 EDMS 06/08 14:15 Order name: D-Dimer; Complete Time: 14:54 pm1 06/08 12:52 Order name: O2 Per Protocol; Complete Time: 12:56 pm1 06/08 12:59 Order name: Cardiac monitoring; Complete Time: 13:22 pm1 06/08 12:59 Order name: EKG - Nurse/Tech; Complete Time: 13:35 pm1 06/08 12:59 Order name: IV Saline Lock; Complete Time: 13:22 pm1 06/08 12:59 Order name: O2 Sat Monitoring; Complete Time: 13:22 pm1 06/08 13:38 Order name: Labs - recollect needed: recollect green and purple top; Complete Time: eb 13:46 Administered Medications: 13:04 Drug: Tylenol 1000 mg Route: PO; ll1 15:10 Follow up: Response: No adverse reaction; Temperature is decreased; RASS: Alert and ll1 Calm (0) 14:18 Drug: SOLU-Medrol 125 mg Route: IVP; Site: left antecubital; ll1 15:09 Follow up: Response: No adverse reaction; RASS: Alert and Calm (0) ll1 14:18 Drug: Albuterol HFA Inhaler 2 puffs Route: Inhalation; ll1 15:09 Follow up: Response: No adverse reaction; RASS: Alert and Calm (0) ll1 Disposition: 06/08/20 15:06 Hospitalization ordered by Guille More for Inpatient Admission. Preliminary diagnosis is Pneumonia due to SARS-associated coronavirus. - Bed requested for Telemetry/MedSurg (Inpatient). - Status is Inpatient Admission. ll2 - Condition is Stable. - Problem is new. - Symptoms have improved. Addendum: 06/10/2020 18:17 Co-signature as Attending Physician, Trev Moreno MD. m a2 Signatures: Dispatcher [employer] [facility] Alysha Mccormack, GERMAN RN Valdemar Weir, ASSISTANT MANAGER RETAIL ASSISTANT MANAGER RETAIL pm1 Trev Moreno MD MD ma2 Concetta Joy Sarah Beth Patton, RN RN ll2 Johnny Rowe RN RN ll1 Corrections: (The following items were deleted from the chart) 06/08 13:18 12:49 CORONAVIRUS+MR.LAB.BRZ ordered. EDMS EDMS 13:19 12:52 Influenza Screen (A \T\ B)+BA.LAB.BRZ ordered. EDMS EDMS 15:23 14:59 ED course: Patient covid positive, extensive bilateral pneumonia per radiologist, pm1 and supplemental oxygen requirements (patient saturation after walking to the restroom - 15 feet - 87% on RA), therefore I will admit the patient to the hospital. pm1 16:04 15:06 Hospitalization Ordered by Guille More for Inpatient Admission. Preliminary eb diagnosis is Pneumonia due to SARS-associated coronavirus. Bed requested for Telemetry/MedSurg (Inpatient). Status is Inpatient Admission. Condition is Stable. Problem is new. Symptoms have improved. pm1 18:27 16:04 06/08/2020 15:06 Hospitalization Ordered by Guille More for Inpatient eb Admission. Preliminary diagnosis is Pneumonia due to SARS-associated coronavirus. Bed requested for [facility] ER HOLD. Status is Inpatient Admission. Condition is Stable. Problem is new. Symptoms have improved. 18:27 18:27 06/08/2020 15:06 Hospitalization Ordered by Guille More for Inpatient dw Admission. Preliminary diagnosis is Pneumonia due to SARS-associated coronavirus. Bed requested for Telemetry/MedSurg (Inpatient). Status is Inpatient Admission. Condition is Stable. Problem is new. Symptoms have improved. 19:44 18:27 06/08/2020 15:06 Hospitalization Ordered by Guille More for Inpatient ll2 Admission. Preliminary diagnosis is Pneumonia due to SARS-associated coronavirus. Bed requested for Telemetry/MedSurg (Inpatient). Status is Inpatient Admission. Condition is Stable. Problem is new. Symptoms have improved. dw
--- NOTE | 2020-06-08 15:48 | P.HP ---
Certification for Inpatient Patient admitted to: Observation With expected LOS: <2 Midnights Practitioner: I am a practitioner with admitting privileges, knowledge of patient current condition, hospital course, and medical plan of care. Services: Services provided to patient in accordance with Admission requirements found in Title 42 Section 412.3 of the Code of Federal Regulations Patient History Date of Service: 06/08/20 Reason for admission: Shortness of breath History of Present Illness: 59-year-old woman with a history of hypertension and hyperlipidemia presented to the emergency department with a complain of progressive shortness of breath any fever 5 days duration. Patient denies any cough, denies any chest. She denies any nausea or vomiting or diarrhea. She tested positive for COVID 19 in the ED. His chest x-ray shows severe bilateral infiltrate. Patient was hypoxic on room air with oxygen saturation of 87%. Her oxygen saturation improved to the mid 90s with 2 L oxygen by nasal cannula. Fever of 102 recorded in the ED. Patient does not meet criteria for sepsis. She is placed under observation for further management. - Past Medical/Surgical History Diabetic: No -: Hypertension -: Hyperlipidemia -: None - Family History Family History: Reviewed- Non-Contributory - Social History Smoking Status: Never smoker Alcohol use: No CD- Drugs: No Place of Residence: Home Review of Systems Other: Except as documented, all other systems reviewed and negative. Physical Examination - Physical Exam General: Alert, In no apparent distress, Oriented x3 HEENT: Atraumatic, Normocephalic Neck: JVD not distended Respiratory: Crackles/rales Cardiovascular: No edema, Regular rate/rhythm Gastrointestinal: Soft and benign Musculoskeletal: No clubbing, No swelling Integumentary: No rashes, No erythema Neurological: Normal strength at 5/5 x4 extr, Cranial nerves 3-12 intact - Studies Laboratory Data (last 24 hrs) 06/08/20 13:44: WBC 4.10 L, Hgb 11.3 L, Hct 32.9 L, Plt Count 144 L 06/08/20 13:44: Sodium 132 L, Potassium 3.3 L, BUN 8, Creatinine 1.05, Glucose 117 H, Magnesium 2.0, Total Bilirubin 0.5, AST 39 H, ALT 10 L, Alkaline Phosphatase 70 06/08/20 13:05: PT 13.4 H, INR 1.13 Microbiology Data (last 24 hrs): 06/08/20 13:07 Throat Group A Streptococcus Rapid Screen - Final Assessment and Plan - Problems (Diagnosis) (1) Pneumonia due to COVID-19 virus Current Visit: Yes Status: Acute (2) Acute respiratory failure with hypoxia Current Visit: Yes Status: Acute (3) Hypertension Current Visit: Yes Status: Acute (4) Hyperlipidemia Current Visit: Yes Status: Acute (5) Hypokalemia Current Visit: Yes Status: Acute (6) Hyponatremia Current Visit: Yes Status: Acute - Plan Placed under observation. Titrate oxygen. Start IV Solu-Medrol Vitamin-D, vitamin-C and zinc supplementation. Monitor inflammatory markers I anticipate patient will need home oxygen. Social service to assist with home oxygen arrangement. Colllect, validate and reconcile home medications. Monitor and replete electrolytes as needed. - Advance Directives Does patient have a Living Will: No Does patient have a Durable POA for Healthcare: No
[2020-06-08 16:44] VITALS: BMI 36.0
[2020-06-08] MEDS ORDERED: ONDANSETRON 4 MG/2 ML VIAL IV PRN (17:41)
[2020-06-08] MEDS ORDERED: POTASSIUM CL SA 10 MEQ TAB PO ONE ×2 (17:41→18:09)
[2020-06-08] MEDS: METHYLPREDNISOLONE 40 MG INJ IV SCH (20:04)
[2020-06-08] MEDS: FAMOTIDINE 20 MG/2 ML VIAL IV SCH (20:04)
[2020-06-09 05:57] LABS: Absolute Lymphocytes (CBC) 0.5 K/uL (0.7-4.9); Basophils % 0.1 % (0-1.3); Hematocrit 33.9 % (36.0-45.0); Lymphocytes % 10.1 % (15.3-44.8); MPV 8.2 fL (7.6-11.3)
[2020-06-09 06:36] LABS: Albumin 3.2 g/dL (3.4-5.0); Bilirubin Total 0.4 mg/dL (0.2-1.0); Ferritin 190.4 ng/mL (8-388); Magnesium 2.6 mg/dL (1.8-2.4); Phosphorus 1.9 mg/dL (2.5-4.9); Potassium 3.8 mmol/L (3.5-5.1); Protein, Total 8.2 g/dL (6.4-8.2)
[2020-06-09 07:49] LABS: Blood Morphology Comment NOT SEEN (NOT SEEN); Platelet Estimate ADEQ
[2020-06-09] MEDS ORDERED: POTASSIUM CL SA 10 MEQ TAB PO ONE (08:00)
[2020-06-09] MEDS: FAMOTIDINE 20 MG/2 ML VIAL IV SCH ×2 (08:11→20:03)
[2020-06-09] MEDS: ENOXAPARIN 40 MG/0.4 ML SQ SCH (08:11)
[2020-06-09] MEDS: METHYLPREDNISOLONE 40 MG INJ IV SCH ×2 (08:11→20:03)
[2020-06-09] MEDS: POTASS/SODIUM PHOSPHATE 1 PKT POWD.PACK PO SCH ×3 (08:11→09:52)
[2020-06-09] MEDS ORDERED: IVERMECTIN 3 MG TABLET PO ONE (11:03)
--- NOTE | 2020-06-09 11:04 | P.CNS ---
Date of Consult: 06/09/20 Reason for Consult: Griffin virus pneumonia Chief Complaint: Shortness of breath History of Present Illness: Patient is 59 years of age hypertension hyperlipidemia admitted with progressive shortness of breath she denies any other symptoms she Thor recently tested positive chest x-ray consistent with the griffin virus she continues to remain a little hypoxic over this morning she is very alert oriented responsive saturation satisfactory Allergies Penicillins Allergy (Verified 06/08/20 17:33) Hives/Rash Home Medications: Lamotrigine [Lamictal] 100 mg PO DAILY 06/08/20 risperiDONE [Risperidone] 2 mg PO DAILY 06/08/20 - Past Medical/Surgical History Diabetic: No -: Hypertension -: Hyperlipidemia -: None - Social History Alcohol use: No CD- Drugs: No Place of Residence: Home Review of Systems 10-point ROS is otherwise unremarkable General: Weakness Respiratory: Shortness of Breath Physical Examination Temp Pulse Resp BP Pulse Ox 97 F 85 20 164/68 H 96 06/09/20 08:00 06/09/20 08:00 06/09/20 08:00 06/09/20 08:00 06/09/20 08:00 General: Alert, In no apparent distress, Oriented x3 Respiratory: Clear to auscultation bilaterally Cardiovascular: No edema, Normal S1 S2 Laboratory Data (last 24 hrs) 06/09/20 05:10: Sodium 133 L, Potassium 3.8, BUN 13, Creatinine 0.83, Glucose 147 H, Phosphorus 1.9 L, Magnesium 2.6 H D, Total Bilirubin 0.4, AST 35, ALT 10 L, Alkaline Phosphatase 70 06/09/20 05:10: WBC 4.70 D, Hgb 11.3 L, Hct 33.9 L, Plt Count 157 06/08/20 13:44: WBC 4.10 L, Hgb 11.3 L, Hct 32.9 L, Plt Count 144 L 06/08/20 13:44: Sodium 132 L, Potassium 3.3 L, BUN 8, Creatinine 1.05, Glucose 117 H, Magnesium 2.0, Total Bilirubin 0.5, AST 39 H, ALT 10 L, Alkaline Phosphatase 70 06/08/20 13:05: PT 13.4 H, INR 1.13 - Problems (1) Pneumonia due to COVID-19 virus Current Visit: Yes Status: Acute Plan: Patient is 59 years of age admitted with hypoxemia chest x-ray consistent with griffin virus pneumonia patient is doing well room-air sat to see if she qualifies for home oxygen discharge on prednisone tapering dose continue with ivermectin low-dose anticoagulation with aspirin follow-up with me in a week given a 1 dose of ivermectin
--- NOTE | 2020-06-09 12:30 | P.PN ---
Subjective Date of Service: 06/09/20 Chief Complaint: Shortness of breath Patient has no new complain. Denies shortness of breath. She is tolerating about 2 L of oxygen by nasal cannula. No fever today. Physical Examination - Vital Signs Temperature: 97 F Blood Pressure: 164/68 Pulse: 85 Respirations: 20 Pulse Ox (%): 96 - Physical Exam General: Alert, In no apparent distress Neck: JVD not distended Cardiovascular: No edema, Regular rate/rhythm Gastrointestinal: Soft and benign, Non-distended Musculoskeletal: No swelling Integumentary: No rashes Neurological: Other (No focal motor deficit.) - Studies Laboratory Data (last 24 hrs) 06/09/20 05:10: Sodium 133 L, Potassium 3.8, BUN 13, Creatinine 0.83, Glucose 147 H, Phosphorus 1.9 L, Magnesium 2.6 H D, Total Bilirubin 0.4, AST 35, ALT 10 L, Alkaline Phosphatase 70 06/09/20 05:10: WBC 4.70 D, Hgb 11.3 L, Hct 33.9 L, Plt Count 157 06/08/20 13:44: WBC 4.10 L, Hgb 11.3 L, Hct 32.9 L, Plt Count 144 L 06/08/20 13:44: Sodium 132 L, Potassium 3.3 L, BUN 8, Creatinine 1.05, Glucose 117 H, Magnesium 2.0, Total Bilirubin 0.5, AST 39 H, ALT 10 L, Alkaline Phosphatase 70 06/08/20 13:05: PT 13.4 H, INR 1.13 Microbiology Data (last 24 hrs): 06/08/20 13:07 Throat Group A Streptococcus Rapid Screen - Final Assessment And Plan - Current Problems (Diagnosis) (1) Pneumonia due to COVID-19 virus Current Visit: Yes Status: Acute (2) Acute respiratory failure with hypoxia Current Visit: Yes Status: Acute (3) Hypertension Current Visit: Yes Status: Acute (4) Hyperlipidemia Current Visit: Yes Status: Acute (5) Hypokalemia Current Visit: Yes Status: Acute (6) Hyponatremia Current Visit: Yes Status: Acute - Plan Continue IV Solu-Medrol Vitamin-D, vitamin-C and zinc supplementation. Monitor inflammatory markers Home oxygen evaluation today. Social service to assist with home oxygen arrangement. Monitor and replete electrolytes as needed.
[2020-06-09] MEDS ORDERED: RISPERIDONE 2 MG PO SCH (12:31)
[2020-06-09] MEDS: RISPERIDONE 1 MG TABLET PO SCH (13:10)
[2020-06-09] MEDS: lamoTRIgine 100 MG TAB PO SCH (13:11)
[2020-06-09 14:10] LABS: Magnesium 2.6 mg/dL (1.8-2.4); Phosphorus 2.5 mg/dL (2.5-4.9)
[2020-06-09 16:27] LABS: Urine Appearance CLEAR; Urine Bilirubin NEGATIVE (NEG); Urine Blood 1+ (NEG); Urine Color YELLOW; Urine Glucose NEGATIVE (NEG); Urine Protein 3+ (NEG); Urine Specific Gravity 1.025 (1.005-1.030)
[2020-06-09 16:30] LABS: Urine Microscopic Reflex ORDER UMIC
[2020-06-09 16:41] LABS: Urine Bacteria 20-50 /HPF (<20); Urine RBC <5 /HPF (NONE SEEN)
[2020-06-09 16:42] LABS: Urine Mucus 1+ /HPF (NONE SEEN); Urine Urothelial Cells <5 /HPF (NONE SEEN)
[2020-06-10 04:05] LABS: Absolute Lymphocytes (CBC) 0.5 K/uL (0.7-4.9); Basophils % 0.1 % (0-1.3); Hematocrit 34.3 % (36.0-45.0); Lymphocytes % 5.3 % (15.3-44.8); MPV 7.9 fL (7.6-11.3); RBC Red Blood Cell Count 4.07 M/uL (3.86-4.86)
[2020-06-10] MEDS: RISPERIDONE 1 MG TABLET PO SCH (07:44)
[2020-06-10] MEDS: METHYLPREDNISOLONE 40 MG INJ IV SCH ×2 (07:44→21:00)
[2020-06-10] MEDS: lamoTRIgine 100 MG TAB PO SCH (07:44)
[2020-06-10] MEDS: FAMOTIDINE 20 MG/2 ML VIAL IV SCH ×2 (07:44→21:02)
[2020-06-10] MEDS: ENOXAPARIN 40 MG/0.4 ML SQ SCH (07:44)
--- NOTE | 2020-06-10 08:22 | EKG ---
Test Date: 2020-06-08 Test Time: 13:30:39 Risk Investigator: DEMARCUS MEASUREMENT RESULTS: Intervals: Rate: 87 MS: 136 QRSD: 80 QT: 382 QTc: 459 [place]: P: 24 MS: 136 QRS: -43 T: 41 INTERPRETIVE STATEMENTS: Normal sinus rhythm Left axis deviation Low voltage QRS Inferior infarct, age undetermined Possible Anterolateral infarct, age undetermined Abnormal ECG Compared to ECG 03/17/1996 09:43:00 Left-axis deviation now present Low QRS voltage now present Myocardial infarct finding now present Ventricular premature complex(es) no longer present Prolonged QT interval no longer present Electronically Signed On 06-10-20 08:18:05 SALVAGER HELPER by Derik Mata
--- NOTE | 2020-06-10 17:14 | P.PN ---
Subjective Date of Service: 06/10/20 Chief Complaint: Shortness of breath Patient complained of shortness of breath. She is requiring more oxygen even at rest. It appears she is getting worse. Physical Examination - Vital Signs Temperature: 98.8 F Blood Pressure: 135/90 Pulse: 73 Respirations: 22 Pulse Ox (%): 87 - Physical Exam General: Alert, In no apparent distress HEENT: Other (Oxygen by nasal cannula.) Respiratory: Crackles/rales Cardiovascular: Regular rate/rhythm, Normal S1 S2 Gastrointestinal: Soft and benign, Non-distended Musculoskeletal: No swelling Neurological: Normal strength at 5/5 x4 extr - Studies Microbiology Data (last 24 hrs): 06/08/20 13:07 Throat Culture & Sensitivity - Final NORMAL UPPER RESPIRATORY SHABBIR GROWN. Assessment And Plan - Current Problems (Diagnosis) (1) Pneumonia due to COVID-19 virus Current Visit: Yes Status: Acute (2) Acute respiratory failure with hypoxia Current Visit: Yes Status: Acute (3) Hypertension Current Visit: Yes Status: Acute (4) Hyperlipidemia Current Visit: Yes Status: Acute (5) Hypokalemia Current Visit: Yes Status: Acute (6) Hyponatremia Current Visit: Yes Status: Acute - Plan Patient respiratory condition is getting worse Continue IV Solu-Medrol. Chief convalescent plasma. Also considering Remdesivir. Patient given a dose of Ivermectin yesterday Continue Vitamin-D, vitamin-C and zinc supplementation. Monitor inflammatory markers Monitor and replete electrolytes as needed.
[2020-06-11 03:55] LABS: Absolute Lymphocytes (CBC) 0.6 K/uL (0.7-4.9); Hematocrit 36.6 % (36.0-45.0); Lymphocytes % 6.8 % (15.3-44.8); MPV 7.9 fL (7.6-11.3); RBC Red Blood Cell Count 4.31 M/uL (3.86-4.86)
[2020-06-11 04:27] LABS: Albumin 3.3 g/dL (3.4-5.0); Bilirubin Total 0.5 mg/dL (0.2-1.0); C-Reactive Protein 15.8 mg/L (<3.00); Ferritin 225.6 ng/mL (8-388); Phosphorus 2.3 mg/dL (2.5-4.9); Potassium 4.1 mmol/L (3.5-5.1); Protein, Total 8.7 g/dL (6.4-8.2)
[2020-06-11] MEDS: POTASS/SODIUM PHOSPHATE 1 PKT POWD.PACK PO SCH ×3 (09:45→12:27)
[2020-06-11] MEDS: ENOXAPARIN 40 MG/0.4 ML SQ SCH (09:48)
[2020-06-11] MEDS: METHYLPREDNISOLONE 40 MG INJ IV SCH ×2 (09:48→20:36)
[2020-06-11] MEDS: FAMOTIDINE 20 MG/2 ML VIAL IV SCH (09:49)
[2020-06-11] MEDS: lamoTRIgine 100 MG TAB PO SCH (09:49)
[2020-06-11] MEDS: RISPERIDONE 1 MG TABLET PO SCH (09:49)
[2020-06-11] MEDS: ACETAMINOPHEN 500 MG TAB PO PRN ×2 (17:10→20:37)
[2020-06-11] MEDS: FAMOTIDINE 20 MG TAB PO SCH (20:36)
--- NOTE | 2020-06-11 21:45 | P.PN ---
Subjective Date of Service: 06/11/20 Chief Complaint: Shortness of breath Subjective: No new changes (patient reports feeling about same as yesterday, no significant improvement in breathing today, denies chest pain, no nausea/vomiting) Review of Systems 10-point ROS is otherwise unremarkable Physical Examination - Vital Signs Temperature: 97.5 F Blood Pressure: 139/67 Pulse: 67 Respirations: 20 Pulse Ox (%): 84 Assessment & Plan Physician Review Additional Text: Physical Exam: General: Alert, In no apparent distress HEENT: sclera anicteric, normal conjunctiva CV: RRR, no edema Pulm: nonlabored on 5 L NC Abd: soft, NTND MSK: no tenderness Problem List: acute hypoxemic respiratory failure secondary to COVID-19 pneumonia HTN HLD hypokalemia, hyponatremia Continue IV Solu-Medrol conv plasma ordered, s/p Ivermectin pulmonology consulted trend CRP/ferritin wean O2 as tolerated continue home meds VTE: lovenox Dispo: anticipate dc home in ~48 hrs, will need home O2 Time Spent Managing Pts Care (In Minutes): 40
[2020-06-12 03:54] LABS: Absolute Lymphocytes (CBC) 0.7 K/uL (0.7-4.9); Basophils % 0.1 % (0-1.3); Lymphocytes % 8.5 % (15.3-44.8); MPV 7.8 fL (7.6-11.3); RBC Red Blood Cell Count 4.24 M/uL (3.86-4.86)
[2020-06-12 04:40] LABS: Albumin 3.1 g/dL (3.4-5.0); Bilirubin Total 0.5 mg/dL (0.2-1.0); C-Reactive Protein 7.5 mg/L (<3.00); Ferritin 180.5 ng/mL (8-388); Protein, Total 8.2 g/dL (6.4-8.2)
[2020-06-12] MEDS ORDERED: IVERMECTIN 3 MG TABLET PO ONE (08:48)
--- NOTE | 2020-06-12 08:50 | P.PN ---
Subjective Date of Service: 06/12/20 Chief Complaint: Respiratory failure from peck virus Subjective: Improving (Patient is improving still feeling a little weak hypoxic common more than 4 L of nasal cannula oxygen week) Review of Systems General: Weakness Respiratory: Shortness of Breath Physical Examination - Vital Signs Temperature: 97.0 F Blood Pressure: 135/89 Pulse: 68 Respirations: 18 Pulse Ox (%): 88 - Physical Exam General: Alert, Oriented x3 Respiratory: Clear to auscultation bilaterally Assessment & Plan - Problems (Diagnosis) (1) Pneumonia due to COVID-19 virus Current Visit: Yes Status: Acute Plan: Patient admitted with respiratory failure from peck virus she is improving oxygen requirements are declining continue with present dose of steroids change to full anticoagulation with Eliquis Dc Lovenox labs reviewed vital signs stable possible discharge in a day or so once patient is down to 4 L of nasal cannula oxygen
--- NOTE | 2020-06-12 09:02 | RAD REPORT ---
EXAM DESCRIPTION: RAD - Chest Single View - 06/12/2020 7:17 am CLINICAL HISTORY: COVID, worsening hypoxia Chest pain. COMPARISON: Chest Single View dated 06/08/2020 FINDINGS: Portable technique limits examination quality. Moderate bilateral pulmonary opacities are noted, unchanged since prior study. The heart is moderatel y enlarged in size. No displaced fractures. IMPRESSION: No significant change is seen in bilateral pulmonary opacities since comparative study.
[2020-06-12] MEDS: METHYLPREDNISOLONE 40 MG INJ IV SCH ×2 (10:25→20:08)
[2020-06-12] MEDS: RISPERIDONE 1 MG TABLET PO SCH (10:25)
[2020-06-12] MEDS: FAMOTIDINE 20 MG TAB PO SCH ×2 (10:25→20:08)
[2020-06-12] MEDS: lamoTRIgine 100 MG TAB PO SCH (10:26)
[2020-06-12] MEDS: APIXABAN 5 MG TABLET PO SCH ×2 (10:33→20:08)
[2020-06-12] MEDS: levoFLOXacin 750 MG TAB PO SCH (10:37)
--- NOTE | 2020-06-12 12:17 | P.PN ---
Subjective Date of Service: 06/12/20 Chief Complaint: Respiratory failure from peck virus Subjective: Improving (Patient feels like his breathing better, asking when she will be discharged home. She has been requiring more oxygen over the past 2-3 days. Chest x-ray this morning with no significant change. Inflammatory markers improving) Review of Systems 10-point ROS is otherwise unremarkable Physical Examination - Vital Signs Temperature: 97.0 F Blood Pressure: 135/89 Pulse: 68 Respirations: 18 Pulse Ox (%): 88 Assessment & Plan Physician Review Additional Text: Physical Exam: General: Alert, In no apparent distress HEENT: sclera anicteric, normal conjunctiva CV: RRR, no edema Pulm: non-labored on 7 L NC, bilateral crackles at bases Abd: soft, NTND MSK: no tenderness Problem List: Acute hypoxemic respiratory failure secondary to COVID-19 pneumonia HTN HLD hypokalemia, hyponatremia Continue Solu-Medrol 80 IV BID conv plasma ordered - blood bank without her blood type, s/p Ivermectin pulmonology consulted CRP / ferritin improving wean O2 as tolerated continue home meds change lovenox to eliquis UA concerning for UTI, pt unsure if having symptoms, reports maybe more frequenc y, will cover with levaquin VTE: eliquis Dispo: anticipate dc home in ~2-3day, will need home O2 Time Spent Managing Pts Care (In Minutes): 35
[2020-06-12] MEDS: ACETAMINOPHEN 500 MG TAB PO PRN (14:20)
[2020-06-13 04:23] LABS: Absolute Lymphocytes (CBC) 0.6 K/uL (0.7-4.9); Basophils % 0.2 % (0-1.3); Hematocrit 35.7 % (36.0-45.0); Lymphocytes % 6.5 % (15.3-44.8); MPV 7.8 fL (7.6-11.3); RBC Red Blood Cell Count 4.24 M/uL (3.86-4.86)
[2020-06-13 04:38] LABS: Albumin 3.2 g/dL (3.4-5.0); Bilirubin Total 0.5 mg/dL (0.2-1.0); C-Reactive Protein 5.46 mg/L (<3.00); Ferritin 142.1 ng/mL (8-388); Protein, Total 8.2 g/dL (6.4-8.2)
[2020-06-13 05:30] LABS: Blood Morphology Comment NOT SEEN (NOT SEEN); Platelet Estimate ADEQ
[2020-06-13] MEDS: levoFLOXacin 750 MG TAB PO SCH (09:44)
[2020-06-13] MEDS: lamoTRIgine 100 MG TAB PO SCH (09:44)
[2020-06-13] MEDS: METHYLPREDNISOLONE 40 MG INJ IV SCH (09:44)
[2020-06-13] MEDS: FAMOTIDINE 20 MG TAB PO SCH ×2 (09:45→21:01)
[2020-06-13] MEDS: APIXABAN 5 MG TABLET PO SCH ×2 (09:45→21:01)
[2020-06-13] MEDS: RISPERIDONE 1 MG TABLET PO SCH (09:45)
--- NOTE | 2020-06-13 13:19 | P.PN ---
Subjective Date of Service: 06/13/20 Chief Complaint: Respiratory failure from peck virus Subjective: No new changes (No acute events overnight, requiring 10 L nasal cannula, feels breathing a little bit better compared to yesterday) Review of Systems 10-point ROS is otherwise unremarkable Physical Examination - Vital Signs Temperature: 97.9 F Blood Pressure: 142/84 Pulse: 75 Respirations: 28 Pulse Ox (%): 90 Assessment & Plan Physician Review Additional Text: Physical Exam: General: Alert, In no apparent distress HEENT: sclera anicteric, normal conjunctiva CV: RRR, no edema Pulm: non-labored on 7 L NC, bilateral crackles at bases Abd: soft, NTND MSK: no tenderness Neuro: AAOx3, slow response to questions Problem List: Acute hypoxemic respiratory failure secondary to COVID-19 pneumonia UTI, cystitis HTN HLD hypokalemia, hyponatremia required more O2 yesterday, feeling better today Continue Solu-Medrol 80 IV BID conv plasma ordered - blood bank without her blood type, s/p Ivermectin pulmonology consulted wean O2 as tolerated continue home meds continue eliquis Urine culture: e.coli, continue levaquin VTE: eliquis Dispo: anticipate dc home in ~2-3day, will need home O2 Time Spent Managing Pts Care (In Minutes): 35
[2020-06-13] MEDS: ACETAMINOPHEN 500 MG TAB PO PRN (13:26)
[2020-06-13] MEDS: METHYLPREDNISOLONE 125 MG INJ IV SCH (21:01)
[2020-06-14 05:02] LABS: Magnesium 2.8 mg/dL (1.8-2.4)
[2020-06-14] MEDS: APIXABAN 5 MG TABLET PO SCH ×2 (08:43→20:39)
[2020-06-14] MEDS: levoFLOXacin 750 MG TAB PO SCH (08:43)
[2020-06-14] MEDS: FAMOTIDINE 20 MG TAB PO SCH ×2 (08:43→20:40)
[2020-06-14] MEDS: RISPERIDONE 1 MG TABLET PO SCH (08:43)
[2020-06-14] MEDS: lamoTRIgine 100 MG TAB PO SCH (08:44)
[2020-06-14] MEDS: METHYLPREDNISOLONE 125 MG INJ IV SCH ×2 (08:48→20:40)
--- NOTE | 2020-06-14 20:43 | P.PN ---
Subjective Date of Service: 06/14/20 Chief Complaint: Respiratory failure from peck virus Subjective: Improving (breathing more comfortably, feeling better. frustrated that she is still in hospital) Review of Systems 10-point ROS is otherwise unremarkable Physical Examination - Vital Signs Temperature: 97.3 F Blood Pressure: 159/79 Pulse: 75 Respirations: 24 Pulse Ox (%): 92 Assessment & Plan Physician Review Additional Text: Physical Exam: General: Alert, In no apparent distress HEENT: sclera anicteric, normal conjunctiva CV: RRR, no edema Pulm: non-labored on 9 L NC Abd: soft, NTND MSK: no tenderness Neuro: AAOx3, slow response to questions Problem List: Acute hypoxemic respiratory failure secondary to COVID-19 pneumonia UTI, cystitis HTN HLD hypokalemia, hyponatremia seems to be improving again Continue Solu-Medrol 80 IV BID s/p Ivermectin pulmonology consulted wean O2 as tolerated continue home meds continue eliquis Urine culture: e.coli, cultures reviewed, will switch levaquin to macrobid VTE: eliquis Dispo: anticipate dc home in ~24-48hrs, will need home O2 Time Spent Managing Pts Care (In Minutes): 35
[2020-06-15] MEDS: NITROFURAN MACRO 100 MG CAP PO SCH ×2 (08:18→16:14)
[2020-06-15] MEDS: METHYLPREDNISOLONE 125 MG INJ IV SCH ×2 (08:18→20:38)
[2020-06-15] MEDS: lamoTRIgine 100 MG TAB PO SCH (08:18)
[2020-06-15] MEDS: APIXABAN 5 MG TABLET PO SCH ×2 (08:18→20:35)
[2020-06-15] MEDS: RISPERIDONE 1 MG TABLET PO SCH (08:18)
[2020-06-15] MEDS: FAMOTIDINE 20 MG TAB PO SCH ×2 (08:19→20:36)
--- NOTE | 2020-06-15 10:03 | RAD REPORT ---
EXAM DESCRIPTION: CT - Head Brain Wo Cont - 06/15/2020 9:48 am CLINICAL HISTORY: confusion, transient alteration of awareness COMPARISON: No comparisons TECHNIQUE: Axial 5 mm thick images of the head were obtained without IV contrast. All CT scans are performed using dose optimization technique as appropriate and may include automated exposure control or mA/KV adjustment according to patient size. FINDINGS: No intracranial hemorrhage, mass, edema or shift of mid-line structures. No acute infarcti on changes seen. No cortical edema or sulcal effacement. No significant atrophy or chronic ischemic c hange identifiable. Ventricles are normal. Mastoid air cells and visualized portions of the paranasal sinuses are clear. No acute bony findings. Intracranial findings are asymmetric due to head tilt within the scanner. IMPRESSION: Negative non-contrast CT head examination for acute or significant finding.
--- NOTE | 2020-06-15 13:06 | P.PN ---
Subjective Date of Service: 06/15/20 Chief Complaint: Respiratory failure from peck virus Subjective: Other (oxygen requirement decreasing, no acute events overnight. Patient more confused this morning, slower to answer questions today. found with oxygen on floor) Review of Systems 10-point ROS is otherwise unremarkable Physical Examination - Vital Signs Temperature: 96.8 F Blood Pressure: 132/75 Pulse: 83 Respirations: 28 Pulse Ox (%): 96 Assessment & Plan Physician Review Additional Text: Physical Exam: General: Alert, NAD, Oriented x2 HEENT: sclera anicteric, normal conjunctiva, PERRL CV: RRR, no edema Pulm: non-labored on 4 L NC Abd: soft, NTND MSK: no tenderness Neuro: AAOx2, slower response to questions, confused, no focal findings, generalized weakness Problem List: Acute hypoxemic respiratory failure secondary to COVID-19 pneumonia UTI, cystitis acute metabolic encephalopathy Bipolar HTN HLD hypokalemia, hyponatremia Oxygen requirement improving, decrease steroids s/p Ivermectin pulmonology consulted wean O2 as tolerated continue home meds continue eliquis Urine culture: e.coli, cultures reviewed, will switch levaquin to macrobid Per nursing staff, patient has been slow to answer questions since admission. Patient's mother is admitted here and reported patient can be "slow" at times. Patient reported to myself yesterday that she felt she was talking and answering normally. Today, her brother was contacted and stated this is abnormal for the patient, she is normally able to have fluent conversations. will obtain CT head encephalopathy can be related to COVID-19 infection, if persists, will obtain MRI / EEG on Wednesday she was found with O2 this morning for unknown duration, possibly worsened due to hypoxia, however SpO2 was 94% within 1-2 minutes of being placed back on O2 VTE: eliquis Dispo: anticipate dc home in ~48hrs, will need home O2, improvement of encephalopathy Time Spent Managing Pts Care (In Minutes): 35
[2020-06-16 06:39] LABS: Absolute Lymphocytes (CBC) 0.8 K/uL (0.7-4.9); Basophils % 0.1 % (0-1.3); Hematocrit 37.3 % (36.0-45.0); Lymphocytes % 8.5 % (15.3-44.8); RBC Red Blood Cell Count 4.38 M/uL (3.86-4.86)
[2020-06-16 07:13] LABS: Albumin 3.2 g/dL (3.4-5.0); Bilirubin Total 0.5 mg/dL (0.2-1.0); Magnesium 2.6 mg/dL (1.8-2.4); Protein, Total 7.8 g/dL (6.4-8.2)
[2020-06-16] MEDS: lamoTRIgine 100 MG TAB PO SCH (08:23)
[2020-06-16] MEDS: FAMOTIDINE 20 MG TAB PO SCH ×2 (08:23→21:10)
[2020-06-16] MEDS: APIXABAN 5 MG TABLET PO SCH ×2 (08:23→21:10)
[2020-06-16] MEDS: RISPERIDONE 1 MG TABLET PO SCH (08:23)
[2020-06-16] MEDS: NITROFURAN MACRO 100 MG CAP PO SCH ×2 (08:23→16:30)
[2020-06-16] MEDS: METHYLPREDNISOLONE 125 MG INJ IV SCH ×2 (08:24→21:10)
[2020-06-16 08:59] LABS: Urine Appearance CLEAR; Urine Bilirubin NEGATIVE (NEG); Urine Blood NEGATIVE (NEG); Urine Color YELLOW; Urine Glucose NEGATIVE (NEG); Urine Protein 1+ (NEG); Urine Specific Gravity >=1.030 (1.005-1.030)
[2020-06-16 09:05] LABS: Urine Microscopic Reflex ORDER UMIC
[2020-06-16 09:42] LABS: Urine Bacteria <20 /HPF (<20); Urine Mucus SLIGHT /HPF (NONE SEEN); Urine RBC NONE SEEN /HPF (NONE SEEN)
--- NOTE | 2020-06-16 13:03 | P.PN ---
Subjective Date of Service: 06/16/20 Chief Complaint: Respiratory failure from peck virus Subjective: Improving (breathing is better, patient without complaints Com still with some slowness to her responses, having difficulty forming full sentences - seems to have difficulty "choosing" right word) Review of Systems 10-point ROS is otherwise unremarkable Physical Examination - Vital Signs Temperature: 97 F Blood Pressure: 117/65 Pulse: 66 Respirations: 18 Pulse Ox (%): 97 Assessment & Plan Physician Review Additional Text: Physical Exam: General: AAO3, NAD HEENT: sclera anicteric, normal conjunctiva, miosis CV: RRR, no edema Pulm: non-labored on 4 L NC Abd: soft, NTND MSK: no tenderness Neuro: AAOx3, slower response to questions, confused, no focal findings, generalized weakness Problem List: Acute hypoxemic respiratory failure secondary to COVID-19 pneumonia UTI, cystitis acute metabolic encephalopathy Bipolar HTN HLD hypokalemia, hyponatremia Oxygen requirement improving, decreased steroids yesterday, wean O2; continue home meds, continue eliquis s/p Ivermectin pulmonology consulted Urine culture: e.coli, cultures reviewed, switched levaquin to macrobid Per nursing staff, patient has been slow to answer questions since admission. Patient's mother is admitted here and reported patient can be "slow" at times. Patient reported to myself yesterday that she felt she was talking and answering normally. Her brother was contacted and stated this is abnormal for the patient, she is normally able to have fluent conversations. CT head negative. encephalopathy can be related to COVID-19 infection will obtain MRI / EEG on Wednesday. Neurology consulted given miosis on exam, and slow speech, will dc risperdal VTE: eliquis Dispo: anticipate dc home in ~48hrs, will need home O2, improvement of encephalopathy Time Spent Managing Pts Care (In Minutes): 35
[2020-06-17 04:20] LABS: Absolute Lymphocytes (CBC) 0.7 K/uL (0.7-4.9); Basophils % 0.1 % (0-1.3); Hematocrit 36.2 % (36.0-45.0); Lymphocytes % 8.6 % (15.3-44.8); MPV 7.9 fL (7.6-11.3); RBC Red Blood Cell Count 4.25 M/uL (3.86-4.86)
[2020-06-17 04:42] LABS: BUN Blood Urea Nitrogen 24 mg/dL (7-18); Bicarbonate 24 mmol/L (21-32); Ferritin 118.9 ng/mL (8-388); Glucose Level 122 mg/dL (74-106); Magnesium 2.7 mg/dL (1.8-2.4); Phosphorus 3.2 mg/dL (2.5-4.9); Sodium Level 139 mmol/L (136-145)
[2020-06-17 04:46] LABS: C-Reactive Protein < 2.90 mg/L (<3.00)
[2020-06-17] MEDS ORDERED: LORazepam 2 MG/ML VIAL IV STA (09:04)
--- NOTE | 2020-06-17 10:06 | RAD REPORT ---
EXAM DESCRIPTION: MRI - Brain Wo Cont - 06/17/2020 9:51 am CLINICAL HISTORY: WORD FINDING DIFFICULTY, SLOW SPEECH Headache, drowsiness COMPARISON: MRA Head Wo Cont dated 06/17/2020; Head Brain Wo Cont dated 06/15/2020 TECHNIQUE: Multi-sequence, multiplanar MR imaging of the brain was performed without contrast. FINDINGS: No intracranial hemorrhage, hydrocephalus or extra-axial fluid collections.Minimal periven tricular and deep white matter chronic microvascular ischemic changes. Mild generalized brain atrophy . No edema or shift of midline structures. No findings to suspect brain mass. DWI is negative for acu te CVA. Midline structures are normally formed. Mastoid air cells and paranasal sinuses are clear. IMPRESSION: No acute or aggressive intracranial abnormalities. Mild generalized brain atrophy.
[2020-06-17] MEDS: NITROFURAN MACRO 100 MG CAP PO SCH ×2 (10:07→17:06)
[2020-06-17] MEDS: FAMOTIDINE 20 MG TAB PO SCH ×2 (10:07→21:00)
[2020-06-17] MEDS: METHYLPREDNISOLONE 125 MG INJ IV SCH ×2 (10:07→21:00)
[2020-06-17] MEDS: lamoTRIgine 100 MG TAB PO SCH (10:07)
[2020-06-17] MEDS: APIXABAN 5 MG TABLET PO SCH ×2 (10:08→21:00)
--- NOTE | 2020-06-17 10:08 | RAD REPORT ---
EXAM DESCRIPTION: MRI - MRA Head Wo Cont - 06/17/2020 9:44 am CLINICAL HISTORY: word finding difficultly, slow speech Headache, drowsiness COMPARISON: Head Brain Wo Cont dated 06/15/2020 FINDINGS: 3D noncontrast [id number] MR angiography of the [place] was performed. No aneurysm, flow-limiting stenosis or vascular malformation is seen. Forward flow seen in codominant vertebral arteries. The visualized dural venous sinuses appear patent. IMPRESSION: No significant flow abnormality of the [place] is identified.
--- NOTE | 2020-06-17 18:19 | P.PN ---
Subjective Date of Service: 06/17/20 Chief Complaint: Respiratory failure from peck virus Subjective: Improving (Talking better today, still slow, from what her brother described, probably about ~30% her baseline. Without any complaints today) Review of Systems 10-point ROS is otherwise unremarkable Physical Examination - Vital Signs Temperature: 98.0 F Blood Pressure: 131/81 Pulse: 70 Respirations: 22 Pulse Ox (%): 95 Assessment & Plan Physician Review Additional Text: Physical Exam: General: AAO3, NAD HEENT: sclera anicteric, normal conjunctiva, mild miosis CV: RRR, no edema Pulm: non-labored on 3 L NC Abd: soft, NTND MSK: no tenderness Neuro: AAOx3, slow response to questions, no focal findings, generalized weakness Problem List: Acute hypoxemic respiratory failure secondary to COVID-19 pneumonia UTI, cystitis acute metabolic encephalopathy Bipolar HTN HLD hypokalemia, hyponatremia Oxygen requirement improving, decreased steroid, wean O2; continue home meds, continue eliquis s/p Ivermectin pulmonology consulted Urine culture: e.coli, cultures reviewed, switched levaquin to macrobid Per nursing staff, patient has been slow to answer questions since admission. Patient's mother is admitted here and reported patient can be "slow" at times. Patient reported to myself yesterday that she felt she was talking and answering normally. Her brother was contacted and stated this is abnormal for the patient, she is normally able to have fluent conversations. encephalopathy can be related to COVID-19 infection MRI / EEG today. Neurology consulted Had some improvement today, will continue Risperdal VTE: eliquis Dispo: anticipate dc home in ~24-48hrs, will need home O2 Discussed with brother Lucien [phone] He lives in the same apartment complex as the patient, would be able to check in on the patient and help her at home. Discussed if she continues to improve, possible discharge tomorrow Time Spent Managing Pts Care (In Minutes): 35
[2020-06-18 04:34] LABS: Magnesium 2.7 mg/dL (1.8-2.4); Potassium 4.1 mmol/L (3.5-5.1)
[2020-06-18] MEDS: METHYLPREDNISOLONE 125 MG INJ IV SCH (08:51)
[2020-06-18] MEDS: APIXABAN 5 MG TABLET PO SCH (08:52)
[2020-06-18] MEDS: FAMOTIDINE 20 MG TAB PO SCH (08:52)
[2020-06-18] MEDS: lamoTRIgine 100 MG TAB PO SCH (08:52)
[2020-06-18] MEDS: NITROFURAN MACRO 100 MG CAP PO SCH ×2 (08:52→16:23)
[2020-06-18] MEDS ORDERED: RISPERIDONE 1 MG TABLET PO SCH (09:00)
--- NOTE | 2020-06-18 09:01 | EEG ---
CHART: [id number] TEST ID#: [id number] DATE OF STUDY: 06/17/2020 THE EEG WAS RECORDED PORTABLE IN THE PATIENT'S ROOM ON A 17 CHANNEL MACHINE. ELECTRODES WERE APPLIED IN THE USUAL MANNER USING THE INTERNATIONAL 10-20 SYSTEM. THE WAKING BACKGROUND RHYTHM IN THIS RECORD CONSISTS OF POORLY DEVELOPED AND POORLY ORGANIZED WAVES OF 7.5 HZ., MAXIMAL IN THE POSTERIOR HEAD REGIONS WHICH ATTENUATE NORMALLY WITH EYE OPENING. LOW TO MODERATE VOLTAGE 3-4 ACTIVITY IS EXPRESSED FRONTAL AND POSTERIOR REGIONS INTERMITTENTLY. LOW VOLTAGE 18-22 HZ ACTIVITY IS EXPRESSED IN THE FRONTAL REGIONS. THERE ARE NO FOCAL OR LATERALIZING FEATURES. NO EPILEPTIFORM ACTIVITY APPEARS. SLEEP OCCURRED NATURALLY. IN ADDITION NORMAL SLEEP PATTERNS ARE PRESENT. HYPERVENTILATION WAS NOT PERFORMED. PHOTIC STIMULATION PRODUCED FAIR DRIVING BILATERALLY. IMPRESSION: THIS IS A MILDLY ABNORMAL EEG DUE TO A MILDLY SLOW BACKGROUND. THIS IS A NON-SPECIFIC FINDING INDICATING THE PRESENCE OF A MILD DIFFUSE DISTURBANCE IN CEREBRAL FUNCTION.
[2020-06-18 11:58] VITALS: O2SAT 96
[2020-06-18 16:19] VITALS: BP 144/85; TEMP 97.6
--- NOTE | 2020-06-18 17:23 | P.DS ---
Admission Date: 06/09/20 Discharge Date: 06/18/20 Discharge Condition: FAIR Reason for Admission: Respiratory failure from peck virus - Problems (1) Pneumonia due to COVID-19 virus Current Visit: Yes Status: Acute (2) Acute respiratory failure with hypoxia Current Visit: Yes Status: Acute (3) Hypertension Current Visit: Yes Status: Acute (4) Hyperlipidemia Current Visit: Yes Status: Acute (5) Hypokalemia Current Visit: Yes Status: Acute (6) Hyponatremia Current Visit: Yes Status: Acute Brief History of Present Illness: 59-year-old woman with a history of hypertension and hyperlipidemia presented to the emergency department with a complain of progressive shortness of breath any fever 5 days duration. Patient denies any cough, denies any chest. She denied any nausea or vomiting or diarrhea. She tested positive for COVID 19 in the ED. His chest x-ray shows severe bilateral infiltrate. Patient was hypoxic on room air with oxygen saturation of 87%. Her oxygen saturation improved to the mid 90s with 2 L oxygen by nasal cannula. Fever of 102 recorded in the ED. Patient did not meet criteria for sepsis. She was admitted for further management. Hospital Course: Patient admitted to the medical floor and started on high-dose IV steroids, vitamin-C, vitamin-D and zinc supplementation. She was requiring oxygen to maintain good oxygen saturation. She was hypoxic on room air. She was seen in consultation by pulmonary. Patient was given a dose of Ivermectin. She developed confusion during the course of the hospital stay but this improved with time. MRI of the brain was performed which did not show any acute CVA. Patient was otherwise clinically stable, tolerated oxygen by nasal cannula throughout the hospital stay. She has been stable with regards to the COVID pneumonia. Patient is deemed clinically stable for discharge. She is discharged with prednisone therapy. She is also discharged with home oxygen. She will follow up with Dr. Garza within 1-2 weeks. Vital Signs/Physical Exam: Temp Pulse Resp BP Pulse Ox 97.6 F 68 16 144/85 H 93 06/18/20 16:00 06/18/20 16:00 06/18/20 16:00 06/18/20 16:00 06/18/20 16:00 General: Alert, In no apparent distress Neck: Supple, JVD not distended Respiratory: Normal air movement Cardiovascular: No edema, Regular rate/rhythm Gastrointestinal: Soft and benign, Non-distended Musculoskeletal: No swelling Integumentary: No rashes Neurological: Other (No focal motor deficit.) Laboratory Data at Discharge: WBC 8.60 K/uL (4.3-10.9) 06/17/20 03:23 Hgb 12.2 g/dL (12.0-15.0) 06/17/20 03:23 Hct 36.2 % (36.0-45.0) 06/17/20 03:23 Plt Count 262 K/uL (152-406) 06/17/20 03:23 PT 13.4 SECONDS (9.5-12.5) H 06/08/20 13:05 INR 1.13 06/08/20 13:05 Sodium 138 mmol/L (136-145) 06/18/20 03:03 Potassium 4.1 mmol/L (3.5-5.1) 06/18/20 03:03 BUN 22 mg/dL (7-18) H 06/18/20 03:03 Creatinine 0.92 mg/dL (0.55-1.3) 06/18/20 03:03 Glucose 162 mg/dL (74-106) H 06/18/20 03:03 Phosphorus Cancelled 06/17/20 05:00 Magnesium 2.7 mg/dL (1.8-2.4) H 06/18/20 03:03 Total Bilirubin 0.5 mg/dL (0.2-1.0) 06/16/20 05:40 AST 14 U/L (15-37) L 06/16/20 05:40 ALT 19 U/L (12-78) 06/16/20 05:40 Alkaline Phosphatase 55 U/L (45-117) 06/16/20 05:40 Home Medications: Lamotrigine [Lamictal] 100 mg PO DAILY 06/08/20 risperiDONE [Risperidone] 2 mg PO DAILY 06/08/20 Apixaban [Eliquis] 5 mg PO BID #60 tablet 06/18/20 Ascorbic Acid [Vitamin C] 2,000 mg PO BID #240 tab.chew 06/18/20 Cholecalciferol (Vitamin D3) [Vitamin D3] 4,000 unit PO DAILY #60 capsule 06/18/20 Famotidine [Pepcid*] 20 mg PO BID #60 tab 06/18/20 Zinc Sulfate [Zinc Sulfate*] 220 mg PO DAILY #30 cap 06/18/20 predniSONE [Prednisone*] 20 mg PO BID #21 tab 06/18/20 New Medications: Apixaban [Eliquis] 5 mg PO BID #60 tablet Famotidine [Pepcid*] 20 mg PO BID #60 tab predniSONE [Prednisone*] 20 mg PO BID #21 tab Ascorbic Acid [Vitamin C] 2,000 mg PO BID #240 tab.chew Cholecalciferol (Vitamin D3) [Vitamin D3] 4,000 unit PO DAILY #60 capsule Zinc Sulfate [Zinc Sulfate*] 220 mg PO DAILY #30 cap Diet: AHA Activity: Fall precautions Followup: Jessee Garza MD [ACTIVE - CAN ADMIT] - 1-2 Weeks (CALL TO SCHEDULE FOR APPOINTMENT) NONE,NONE [Primary Care Provider] - 1-2 Weeks (CALL TO SCHEDULE FOR APPOINTMENT) Time spent managing pt's care (in minutes): 36
== END 2020-06-18 18:20 | disposition home or self-care (01) | DRG 177 ==
LOC: ER 12:09 → ERHOLD 15:48 → 4TH 19:43 → OBSVTOIN 06-09 08:21
PROVIDERS: ADMIT Internal Medicine; ATTEND Internal Medicine
PROC: XW13325 Transfusion of Convalescent Plasma (Nonautologous) into Peripheral Vein, Percutaneous Approach, New Technology Group 5 (ICD-10-PCS; principal; 2020-06-10)
DX: U07.1 COVID-19 (principal); J12.82 Pneumonia due to coronavirus disease 2019; J96.01 Acute respiratory failure with hypoxia; G93.41 Metabolic encephalopathy; E87.1 Hypo-osmolality and hyponatremia; N39.0 Urinary tract infection, site not specified; I10 Essential (primary) hypertension; E78.5 Hyperlipidemia, unspecified; F31.9 Bipolar disorder, unspecified; E87.6 Hypokalemia; B96.20 Unspecified Escherichia coli [E. coli] as the cause of diseases classified elsewhere; Z88.0 Allergy status to penicillin; Z79.899 Other long term (current) drug therapy; Z79.01 Long term (current) use of anticoagulants; Z79.52 Long term (current) use of systemic steroids
CPT/HCPCS: 0240U; 36415; 70450; 70544; 70551; 71045; 80048; 80053; 80076; 81003; 81015; 82728; 83605; 83735; 83880; 84100; 84484; 85025; 85379; 85610; 86140; 86900; 86901; 87040; 87070; 87077; 87081; 87086; 87088; 87186; 93005; 94760; 95819; 96374; 99285; G0378; J1650; J2920; J2930

== ENCOUNTER 2022-10-19 18:16 | Emergency (ER) | payer OTHER ==
--- OUTSIDE RECORDS SUMMARY | 2022-10-19 18:26 | XMS REPORT | Continuity of Care Document ---
:1960 Author Organization [facility] t Address [address] [place] [address] Care Team Providers Name Role Phone Asked, No Pcp Primary Care Physician Unavailable PRECIOUS CHAVARRIA Attending Clinician Unavailable Meryl Barlow Attending Clinician Unavailable Yohannes Cope Attending Clinician Jose Feng Attending Clinician Triston Jane Attending Clinicia n Shamar Gunderson Attending Clinician Reece Remy Attending Clinician Meryl Barlow Admitting Clinician Unavailable Physician, No Primary or Family Admitting Clinician Unavaila ble Yohannes Cope Admitting Clinician Triston Jane Admitting Clinicia n Payers Payer Name Policy Type Policy Number Effective Date Expiration Date S ource Problems Condition Condition Condition Status Onset Resolution Last Treating Co mments Source Name Details Category Date Date Treatment Clinician Date POSSIBLE POSSIBLE Diagnosis Active 2015-09-25 Yasmine STROKE STROKE 09-24 19:24:00 l Active 00:00: [place] 09/25/2015 00 [facility] HYPOTENSIO HYPOTENSI Diagnosis Active 2015-09-26 Yasmine N, ON, 09-24 18:49:00 l DIZZINESS DIZZINESS 00:00: Herm kevin Active 00 09/25/2015 [place] G81.91 G81.91 Diagnosis Active 2015-09-12 Me moria Active 08-27 08:21:00 l 08/28/2015 00:00: Rajat conde [address] RIGHT SIDE RIGHT Diagnosis Active 2015-08-07 Memoria WEAKNESS SIDE 08-06 17:53:00 l WEAKNESS 00:00: Venkatesh Active 00 08/07/2015 [facility] CVA CVA Diagnosis Active 2016-01-31 Mem oria Active 08-06 15:41:00 l 08/07/2015 00:00: Rajat conde [address] CHEST PAIN CHEST Diagnosis Active 2016-01-31 Memoria PAIN 07-06 15:36:00 l Active 15:30: Venkatesh 07/06/2015 00 [place] HYPERTENSI HYPERTENS Diagnosis Active 2016-01-31 Memoria ON ION Active 06-21 15:33:00 l 06/21/2015 00:00: Rajat conde [address] Anxiety Anxiety Problem Resolve 2015-09-29 M emoria (finding) (finding) d 02:27:42 l Resolved Venkatesh Problem 09/29/2015 [facility], LIZ Riddle,Formerly named [facility] [place] Gastritis Gastritis Problem Resolve 2015-09-29 Memoria (disorder) (disorder) d 02:27:42 l Resolved [place] Problem 09/29/2015 [facility], LIZ R[place],Formerly named [facility] [place] Hyperchole Hyperchol Problem Resolve 2015-09-29 Memoria sterolemia esterolemi d 02:27:42 l (disorder) a Rajat conde (disorder) Resolved Problem 09/29/2015 [facility] LIZ [place],Formerly named [facility] [place] Hypertensi Hypertens Problem Resolve 2015-09-29 Memoria ve krystian d 02:27:42 l disorder, disorder, Herm kevin systemic systemic arterial arterial (disorder) (disorder) Resolved Problem 09/29/2015 [facility], LIZ R[place],Formerly named [facility] [place] Hypothyroi Hypothyro Problem Resolve 2015-09-29 Memoria dism idism d 02:27:42 l (disorder) (disorder) He rmkevin Resolved Problem 09/29/2015 [facility], LIZ [place],[facility], [place] Major Major Problem Resolve 2015-09-29 Vic bravo depressive depressive d 02:27:42 l disorder disorder Rajat n (disorder) (disorder) Resolved Problem 09/29/2015 [facility], LIZ R[place],[facility], [place] Rheumatoid Rheumatoi Problem Resolve 2015-09-29 Memoria arthritis d d 02:27:42 l (disorder) arthritis Her briggs (disorder) Resolved Problem 09/29/2015 [facility], LIZ [place],[facility] Suicidal Suicidal Problem Resolve 2015-09-29 Memoria thoughts thoughts d 02:27:42 l (finding) (finding) Herm kevin Resolved Problem 09/29/2015 [facility], LIZ R[place],[facility], [place] Depressive Depressiv Problem Resolve 2015-09-29 Memoria disorder e disorder d 02:27:42 l (disorder) (disorder) Hira shuklaann Resolved Problem 09/29/2015 [facility], LIZ [place],[facility], [place] Optic Optic Problem Resolve 2015-09-29 Vic bravo neuritis neuritis d 02:27:42 l (disorder) (disorder) He rmann Resolved Problem 09/29/2015 [facility], LIZ R[place],[facility] History of Past Illness Condition Condition Condition Status Onset Resolution Last Treating Co mments Source Name Details Category Date Date Treatment Clinician Date Discharge Discharge Problem 2015-07-09 2015-07-09 Memoria Diagnosis: Diagnosis: 2 02:29:57 02:29:57 l Anxiety in Anxiety in 06:00: Hira gomez acute acute 00 stress stress reaction reaction 07/06/2015 07/09/2015 [place] Discharge Discharge Problem 2015-07-09 2015-07-09 Memoria Diagnosis: Diagnosis: 2 02:29:57 02:29:57 l Left-sided Left-sided 06:00: Hira gomez chest wall chest wall 00 pain pain 07/06/2015 07/09/2015 [place] Discharge Discharge Problem 2015-06-24 2015-06-24 Memoria Diagnosis: Diagnosis: 2 04:24:51 04:24:51 l Anxiety Anxiety 06:00: Venkatesh 06/21/2015 00 06/24/2015 [facility] Discharge Discharge Problem 2016-0 2015-06-24 2015-06-24 Memcésar Diagnosis: Diagnosis: 2-12 04:24:51 04:24:51 l Benign Benign 06:00: Venkatesh hypertensi hypertensi 00 on on 06/21/2015 06/24/2015 [facility] Allergies, Adverse Reactions, Alerts Allergy Allergy Status Severity Reaction(s) Onset Inactive Treating Comm ents Source Name Type Date Date Clinician Mucinex Mucinex Active Yasmine l Venkatesh penicill penicill Active Memori a ins ins l Venkatesh Social History Social Habit Start Date Stop Date Quantity Comments Source Gender identity [facility] Sexual orientation Method [facility] Social History 2015-09-26 2015-09-26 [facility] christopher 00:52:19 00:52:19 Sex Ass[birth year] At [birth year] [facility] 00:00:00 00:00:00 Smoking Status Start Date Stop Date Source Tobacco smoking consumption unknown [facility] Medications Ordered Filled Start Stop Current Ordering Indication Dosage Frequency Signature Comments Components Source Medication Medication Date Date Medication? Clinician (SIG) Name Name Amlodipine Yes 0.5 tab, Mem oria 5 MG / 5-19 PO, Daily, l Hydrochloro 23:35: # 15 tab, H ermann thiazide 25 00 0 MG / Refill(s) valsartan 160 MG Oral Tablet [Exforge HCT 5/160/25] Amlodipine Yes 0.5 tab, Mem oria 5 MG / 5-19 PO, Daily, l Hydrochloro 23:35: # 15 tab, H ermann thiazide 25 00 0 MG / Refill(s) valsartan 160 MG Oral Tablet [Exforge HCT 5/160/25] Risperdal No Notes: Memori a 5-19 (Same as: l 14:00: Risperdal) Omeprazole No 20 mg, Memor ia 5-19 Route: PO, l 14:00: Drug form: [place] 00 DRC, Daily, Dosing Weight 72.727, kg, Start date: 09/26/15 9:00:00 CDT, Duration: 30 day, Stop date: 10/25/15 9:00:00 CDT Protonix 2015-0 No Notes: Memoria 5-19 Tablet l 14:00: should not Venkatesh 00 be chewed or crushed. (Same as: Protonix) Advair No 1 puff, Memoria Diskus 250 5-19 Route: l mcg-50 mcg 14:00: INHALATION H ermann inhalation 00 , Drug powder Form: AERO, Dosing Weight 72.727, kg, BID, Start date: 09/26/15 9:00:00 CDT, Duration: 30 day, Stop date: 10/25/15 17:00:00 CDT Wellbutrin No Notes: Memor ia XL 5-19 (Same as: l 14:00: Wellbutrin Venkatesh 00 XL) "Do Not Crush" Effexor XR No Notes: Do Me moria 5-19 not open, l 14:00: crush, or [place] 00 chew. (Same As: Effexor XR) Risperdal No Notes: Memori a 5-19 (Same as: l 14:00: Risperdal) [place] 00 Omeprazole No 20 mg, Memor ia 5-19 Route: PO, l 14:00: Drug form: [place] 00 DRC, Daily, Dosing Weight 72.727, kg, Start date: 09/26/15 9:00:00 CDT, Duration: 30 day, Stop date: 10/25/15 9:00:00 CDT Protonix 0 No Notes: Memoria 5-19 Tablet l 14:00: should not Venkatesh 00 be chewed or crushed. (Same as: Protonix) Advair No 1 puff, Memoria Diskus 250 5-19 Route: l mcg-50 mcg 14:00: INHALATION H ermann inhalation 00 , Drug powder Form: AERO, Dosing Weight 72.727, kg, BID, Start date: 09/26/15 9:00:00 CDT, Duration: 30 day, Stop date: 10/25/15 17:00:00 CDT Wellbutrin 0 No Notes: Memor ia XL 5-19 (Same as: l 14:00: Wellbutrin Venkatesh 00 XL) "Do Not Crush" Effexor XR No Notes: Do Me moria 5-19 not open, l 14:00: crush, or [place] 00 chew. (Same As: Effexor XR) Cytomel No Notes: Memoria 5-19 (Same as: l 12:59: Cytomel) [place] 00 Cytomel No Notes: Memoria 5-19 (Same as: l 12:59: Cytomel) Venkatesh 00 liothyronin Yes 5 Memori a e sodium 5-19 microgram l 0.005 MG 12:56: = 1 tab, Queenie nn Oral Tablet 00 PO, Daily, [Cytomel] # 30 tab, 3 Refill(s) Levothyroxi Yes 150 Memori a ne Sodium 5-19 microgram l 0.15 MG 12:56: = 1 tab, Rajat n Oral Tablet 00 PO, Daily, [Synthroid] Brand Name Necessary, # 30 tab, 3 Refill(s) liothyronin Yes 5 Memori a e sodium 5-19 microgram l 0.005 MG 12:56: = 1 tab, Queenie nn Oral Tablet 00 PO, Daily, [Cytomel] # 30 tab, 3 Refill(s) Levothyroxi Yes 150 Memori a ne Sodium 5-19 microgram l 0.15 MG 12:56: = 1 tab, Rajat n Oral Tablet 00 PO, Daily, [Synthroid] Brand Name Necessary, # 30 tab, 3 Refill(s) Thyroxine No Notes: Memori a 5-19 Take 1 l 11:30: hour [place] 00 before or 2 hours after meal; Enteral feeds may interefere with the absorption of this medication .(Same as:Levothr oid, Synthroid) Thyroxine No Notes: Memori a 5-19 Take 1 l 11:30: hour Venkatesh 00 before or 2 hours after meal; Enteral feeds may interefere with the absorption of this medication .(Same as:Levothr oid, Synthroid) Diazepam No Notes: Memoria 5-19 (Same as: l 02:00: Valium) Lipitor No Notes: Memoria 5-19 (Same as: l 02:00: Lipitor) [place] Diazepam No Notes: Memoria 5-19 (Same as: l 02:00: Valium) Venkatesh 00 Lipitor No Notes: Memoria 5-19 (Same as: l 02:00: Lipitor) [place] 00 Symbicort No Notes: Memori a 80/4.5 5-19 (Same as: l inhalation 01:29: Symbicort) H ermann aerosol 00 WASTE: with Aerosol - adapter Return to Pharmacy Symbicort No Notes: Memori a 80/4.5 5-19 (Same as: l inhalation 01:29: Symbicort) H ermann aerosol 00 WASTE: with Aerosol - adapter Return to Pharmacy NS 1,000 mL No 1,000 mL, M emoria 5-19 Rate: 125 l 01:27: ml/hr, [place] 00 Infuse over: 8 hr, Route: IV, Dosing Weight 72.727 kg, Total Volume: 1,000, Start date: 09/25/15 20:27:00 CDT, Duration: 30 day, Stop date: 10/25/15 20:26:00 CDT NS 1,000 mL No 1,000 mL, M emoria 5-19 Rate: 125 l 01:27: ml/hr, [place] 00 Infuse over: 8 hr, Route: IV, Dosing Weight 72.727 kg, Total Volume: 1,000, Start date: 09/25/15 20:27:00 CDT, Duration: 30 day, Stop date: 10/25/15 20:26:00 CDT Acetaminoph No Notes: Do M emoria en -19 not exceed l 01:25: 4 gm/day. [place] 00 (Same as: Tylenol) Morphine No Notes: Memoria 5-19 (Same l 01:25: as:MORPhin [place] 00 e Sulfate) Acetaminoph No Notes: Vic bravo en 325 MG / -19 (Same as: l Hydrocodone 01:25: [place] Queenie nn Bitartrate 00 325/5) Do 5 MG Oral not exceed Tablet 4gm/day of acetaminop hen. Ondansetron No Notes: Vic bravo 5-19 (Same as: l 01:25: Zofran) Venkatesh 00 MEDICATION WASTE Product Size: 4 mg Product Wasted: ___ mg Docusate No Notes: Memoria 5-19 (Same as: l 01:25: Colace) Venkatesh (Do Not Crush) Acetaminoph No Notes: Do M emoria en 5-19 not exceed l 01:25: 4 gm/day. [place] 00 (Same as: Tylenol) Morphine No Notes: Memoria 5-19 (Same l 01:25: as:MORPhin Venkatesh 00 e Sulfate) Acetaminoph No Notes: Vic bravo en 325 MG / 5-19 (Same as: l Hydrocodone 01:25: [place] Queenie nn Bitartrate 00 325/5) Do 5 MG Oral not exceed Tablet 4gm/day of acetaminop hen. Ondansetron No Notes: Vic bravo -19 (Same as: l 01:25: Zofran) Venkatesh 00 MEDICATION WASTE Product Size: 4 mg Product Wasted: ___ mg Docusate No Notes: Memoria 5-19 (Same as: l 01:25: Colace) [place] 00 (Do Not Crush) Risperidone Yes 2 mg = 1 Me moria 2 MG Oral 5-19 tab, PO, l Tablet 00:53: BID, # 60 Rajat n [Risperdal] 00 tab, 0 Refill(s) venlafaxine Yes 225 mg = 1 Memoria 225 mg oral 5-19 tab, PO, l tablet, 00:53: Daily, # Rajat n extended 00 30 tab, 0 release Refill(s) Rosuvastati Yes 20 mg = 1 M emoria n calcium 5-19 tab, PO, l 20 MG Oral 00:53: Bedtime, # H ermann Tablet 00 30 tab, 0 [Crestor] Refill(s) Advair Yes 1 puff, Memoria Diskus 250 5-19 INHALATION l mcg-50 mcg 00:53: , BID, # 1 H ermann inhalation 00 ea, 3 powder Refill(s) Potassium Yes 10 mEq = 1 Me moria Chloride 10 5-19 tab, PO, l MEQ 00:53: BID, # 10 Venkatesh Extended 00 tab, 0 Release Refill(s) Tablet Risperidone Yes 2 mg = 1 Me moria 2 MG Oral 5-19 tab, PO, l Tablet 00:53: BID, # 60 Rajat n [Risperdal] 00 tab, 0 Refill(s) venlafaxine Yes 225 mg = 1 Memoria 225 mg oral 5-19 tab, PO, l tablet, 00:53: Daily, # Rajat n extended 00 30 tab, 0 release Refill(s) Rosuvastati Yes 20 mg = 1 M emoria n calcium 5-19 tab, PO, l 20 MG Oral 00:53: Bedtime, # H ermann Tablet 00 30 tab, 0 [Crestor] Refill(s) Advair Yes 1 puff, Memoria Diskus 250 5-19 INHALATION l mcg-50 mcg 00:53: , BID, # 1 H ermann inhalation 00 ea, 3 powder Refill(s) Potassium Yes 10 mEq = 1 Me moria Chloride 10 5-19 tab, PO, l MEQ 00:53: BID, # 10 Venkatesh Extended 00 tab, 0 Release Refill(s) Tablet Acetaminoph Yes Notes: Do M emoria en 5-18 not exceed l 22:34: 4 gm/day. Venkatesh 00 (Same as: Tylenol) Saline No Notes: Memoria Flush 0.9% 5-18 (Same as: l 22:34: BD Venkatesh 00 Posiflush) Acetaminoph Yes Notes: Do M emoria en 5-18 not exceed l 22:34: 4 gm/day. [place] 00 (Same as: Tylenol) Saline No Notes: Memoria Flush 0.9% 5-18 (Same as: l 22:34: BD [place] 00 Posiflush) Sodium No 1,000 mL, Memori a Chloride 5-18 Rate: 150 l 0.154 21:51: ml/hr, [place] MEQ/ML 00 Infuse Injectable over: 6.7 Solution hr, Route: IV, Dosing Weight 72.727 kg, Total Volume: 1,000, Priority: STAT, Start date: 09/25/15 16:51:00 CDT, Duration: 1 doses or times, Stop date: 09/25/15 23:32:00 CDT Sodium 2016-0 No 1,000 mL, Memori a Chloride 5-18 Rate: 150 l 0.154 21:51: ml/hr, [place] MEQ/ML 00 Infuse Injectable over: 6.7 Solution hr, Route: IV, Dosing Weight 72.727 kg, Total Volume: 1,000, Priority: STAT, Start date: 09/25/15 16:51:00 CDT, Duration: 1 doses or times, Stop date: 09/25/15 23:32:00 CDT Sodium 2016-0 No 1,000 mL, Memori a Chloride 5-18 1,000 l 0.154 21:12: ml/hr, [place] MEQ/ML 00 Infuse Injectable Over: 1 Solution hr, Route: IV, 1,000, Drug form: INJ, ONCE, Priority: STAT, Dosing Weight 72.727 kg, Start date: 09/25/15 16:12:00 CDT, Duration: 1 doses or times, Stop date: 09/25/15 16:12:00 CDT Sodium 2016-0 No 1,000 mL, Memori a Chloride 5-18 1,000 l 0.154 21:12: ml/hr, Venkatesh MEQ/ML 00 Infuse Injectable Over: 1 Solution hr, Route: IV, 1,000, Drug form: INJ, ONCE, Priority: STAT, Dosing Weight 72.727 kg, Start date: 09/25/15 16:12:00 CDT, Duration: 1 doses or times, Stop date: 09/25/15 16:12:00 CDT Effexor 2016-0 No PO, 0 Memoria 5-18 Refill(s) l 20:59: Venkatesh 00 Risperdal 2016-0 No PO, BID, 0 Me moria 5-18 Refill(s) l 20:59: Venkatesh 00 Effexor 2016-0 No PO, 0 Memoria 5-18 Refill(s) l 20:59: Evnkatesh 00 Risperdal 2016-0 No PO, BID, 0 Me moria 5-18 Refill(s) l 20:59: [place] 00 Potassium 2016-0 No Notes: Memori a Chloride 20 3-31 (Same as: l MEQ 22:00: K-Dur 20) "Do Not Release Crush" Tablet With food and full glass of water Potassium 2015-0 No Notes: Memori a Chloride 20 3-31 (Same as: l MEQ 22:00: K-Dur 20) "Do Not Release Crush" Tablet With food and full glass of water Potassium 2015-0 Yes 10 mEq = 1 Me moria Chloride 10 3-31 tab, PO, l MEQ 21:50: BID, # 20 [place] Extended 00 tab, 0 Release Refill(s) Tablet Potassium 0 Yes 10 mEq = 1 Me moria Chloride 10 3-31 tab, PO, l MEQ 21:50: BID, # 20 [place] Extended 00 tab, 0 Release Refill(s) Tablet Effexor XR 2015-0 No 225 mg, 3 Me moria 3-31 cap, l 14:00: Route: PO, Drug form: ERCAP, Daily, Dosing Weight 68.182, kg, Start date: 08/08/15 9:00:00, Duration: 30 day, Stop date: 09/06/15 9:00:00 Omeprazole No 20 mg, Memor ia 3-31 Route: PO, l 14:00: Drug form: DRC, Daily, Dosing Weight 68.182, kg, Start date: 08/08/15 9:00:00, Duration: 30 day, Stop date: 09/06/15 9:00:00 Mobic 2016-0 No Notes: Memoria 3-31 (Same as: l 14:00: Mobic) Wellbutrin 2015-0 No 300 mg, 2 Me moria XL 3-31 tab, l 14:00: Route: PO, Drug form: ERTAB, Daily, Dosing Weight 68.182, kg, Start date: 08/08/15 9:00:00, Duration: 30 day, Stop date: 09/06/15 9:00:00 Effexor XR 2015-0 No 225 mg, 3 Me moria 3-31 cap, l 14:00: Route: PO, Drug form: ERCAP, Daily, Dosing Weight 68.182, kg, Start date: 08/08/15 9:00:00, Duration: 30 day, Stop date: 09/06/15 9:00:00 Omeprazole No 20 mg, Memor ia 3-31 Route: PO, l 14:00: Drug form: [place] 00 DRC, Daily, Dosing Weight 68.182, kg, Start date: 08/08/15 9:00:00, Duration: 30 day, Stop date: 09/06/15 9:00:00 Mobic 2015-0 No Notes: Memoria 3-31 (Same as: l 14:00: Mobic) [place] Wellbutrin No 300 mg, 2 Me moria XL 3-31 tab, l 14:00: Route: PO, Venkatesh 00 Drug form: ERTAB, Daily, Dosing Weight 68.182, kg, Start date: 08/08/15 9:00:00, Duration: 30 day, Stop date: 09/06/15 9:00:00 potassium 2015-0 No Notes: Memori a chloride 3-31 (Same as: l 12:29: K-Dur 20) [place] 00 "Do Not Crush" With food and full glass of water potassium 0 No Notes: Memori a chloride 3-31 (Same as: l 12:29: K-Dur 20) Venkatesh 00 "Do Not Crush" With food and full glass of water Thyroxine No Notes: Memori a 3-31 Take 1 l 11:30: hour [place] 00 before or 2 hours after meal; Enteral feeds may interefere with the absorption of this medication . (Same as:Levothr oid) Thyroxine No Notes: Memori a 3-31 Take 1 l 11:30: hour [place] 00 before or 2 hours after meal; Enteral feeds may interefere with the absorption of this medication . (Same as:Levothr oid) Sodium 2015- No 500 mL, Memoria Chloride 3-31 500 ml/hr, l 0.154 06:18: Infuse [place] MEQ/ML 00 Over: 1 Injectable hr, Route: Solution IV, 500, Drug form: INJ, ONCE, Priority: STAT, Dosing Weight 71.6 kg, Start date: 08/08/15 1:18:00, Duration: 1 doses or times, Stop date: 08/08/15 1:18:00 Albumin 2016-0 No Notes: Memoria Human, RESIDENTIAL 3-31 LOT#: l 50 MG/ML 06:18: Her briggs Injectable 00 ___ Solution Mfg: WASTE: F/P - Red; E -Red (Same as: Albuminar) "blood product derivative " Sodium 2016-0 No 500 mL, Memoria Chloride 3-31 500 ml/hr, l 0.154 06:18: Infuse Venkatesh MEQ/ML 00 Over: 1 Injectable hr, Route: Solution IV, 500, Drug form: INJ, ONCE, Priority: STAT, Dosing Weight 71.6 kg, Start date: 08/08/15 1:18:00, Duration: 1 doses or times, Stop date: 08/08/15 1:18:00 Albumin 2015-0 No Notes: Yasmine Gamboa, RESIDENTIAL 08-07 LOT#: l 50 MG/ML 06:18: Her briggs Injectable 00 ___ Solution Mfg: WASTE: F/P - Red; E -Red (Same as: Albuminar) "blood product derivative " Sodium 2015-0 No 1,000 mL, Memori a Chloride -31 1,000 l 0.154 04:19: ml/hr, [place] MEQ/ML 00 Infuse Injectable Over: 1 Solution hr, Route: IV, 1,000, Drug form: INJ, ONCE, Priority: STAT, Dosing Weight 71.6 kg, Start date: 08/07/15 23:19:00, Duration: 1 doses or times, Stop date: 08/07/15 23:19:00 Sodium 2016-0 No 1,000 mL, Memori a Chloride -31 1,000 l 0.154 04:19: ml/hr, Venkatesh MEQ/ML 00 Infuse Injectable Over: 1 Solution hr, Route: IV, 1,000, Drug form: INJ, ONCE, Priority: STAT, Dosing Weight 71.6 kg, Start date: 08/07/15 23:19:00, Duration: 1 doses or times, Stop date: 08/07/15 23:19:00 Saline 2015-0 No 10 ml, Memoria Flush 0.9% 08-07 Route: l 02:00: IVP, Drug Form: INJ, Dosing Weight 68.182, kg, Q12H, Start date: 08/07/15 21:00:00, Duration: 30 day, Stop date: 09/06/15 9:00:00 Protonix 2015-0 No 40 mg, 1 Memor ia 3-31 tab, l 02:00: Route: PO, Drug form: ECTAB, Before Dinner, Start date: 08/07/15 21:00:00, Duration: 30 day, Stop date: 09/06/15 16:30:00 Geodon No Notes: Memoria 3-31 (Same As: l 02:00: Geodon) Give with Food Diazepam No Notes: Memoria 3-31 (Same as: l 02:00: Valium) Symbicort No Notes: Memori a 80/4.5 3-31 (Same as: l inhalation 02:00: Symbicort) H erm aerosol WASTE: with Aerosol - adapter Return to Pharmacy Lipitor No Notes: Memoria 3-31 (Same as: l 02:00: Lipitor) Enoxaparin No Notes: Memor ia 3-31 (Same as: l 02:00: Lovenox) Saline No 10 ml, Memoria Flush 0.9% 08-07 Route: l 02:00: IVP, Drug Form: INJ, Dosing Weight 68.182, kg, Q12H, Start date: 08/07/15 21:00:00, Duration: 30 day, Stop date: 09/06/15 9:00:00 Protonix 2015-0 No 40 mg, 1 Memor ia 3-31 tab, l 02:00: Route: PO, Drug form: ECTAB, Before Dinner, Start date: 08/07/15 21:00:00, Duration: 30 day, Stop date: 09/06/15 16:30:00 Geodon No Notes: Memoria 3-31 (Same As: l 02:00: Geodon) Give with Food Diazepam No Notes: Memoria 3-31 (Same as: l 02:00: Valium) Symbicort No Notes: Memori a 80/4.5 3-31 (Same as: l inhalation 02:00: Symbicort) H erm aerosol WASTE: with Aerosol - adapter Return to Pharmacy Lipitor No Notes: Memoria 3-31 (Same as: l 02:00: Lipitor) Enoxaparin No Notes: Memor ia 3-31 (Same as: l 02:00: Lovenox) Sodium No 25 mL, Memoria Chloride 3 Route: IV, l 0.9% IV 00:36: Start [place] 00 date: 08/07/15 19:36:00, Duration: 30 day, Stop date: 09/06/15 19:35:00, PRN Line Flush BD Normal No Notes: Memori a Saline 3-31 (Same as: l Flush 00:36: BD [place] 00 Posiflush) Sodium No 25 mL, Memoria Chloride 3 Route: IV, l 0.9% IV 00:36: Start Venkatesh date: 08/07/15 19:36:00, Duration: 30 day, Stop date: 09/06/15 19:35:00, PRN Line Flush BD Normal No Notes: Memori a Saline 3-31 (Same as: l Flush 00:36: BD Venkatesh 00 Posiflush) normal No 1,000 mL, Memori a saline 0.9% 3-30 Rate: 125 l IV 1,000 mL 23:13: ml/hr, Herm kevin 00 Infuse over: 8 hr, Route: IV, Dosing Weight 68.182 kg, Total Volume: 1,000, Start date: 08/07/15 18:13:00, Duration: 30 day, Stop date: 09/06/15 18:12:00 normal No 1,000 mL, Memori a saline 0.9% 3-30 Rate: 125 l IV 1,000 mL 23:13: ml/hr, Herm kevin 00 Infuse over: 8 hr, Route: IV, Dosing Weight 68.182 kg, Total Volume: 1,000, Start date: 08/07/15 18:13:00, Duration: 30 day, Stop date: 09/06/15 18:12:00 Saline 2016-0 No 10 ml, Memoria Flush 0.9% 3-30 Route: l 23:12: IVP, Drug Venkatesh Form: INJ, Dosing Weight 68.182, kg, PRN, PRN Line Flush, Start date: 08/07/15 18:12:00, Duration: 30 day, Stop date: 09/06/15 18:11:00 Saline 2015-0 No 10 ml, Memoria Flush 0.9% 3-30 Route: l 23:12: IVP, Drug Venkatesh 00 Form: INJ, Dosing Weight 68.182, kg, PRN, PRN Line Flush, Start date: 08/07/15 18:12:00, Duration: 30 day, Stop date: 09/06/15 18:11:00 ziprasidone 2015- Yes 20 mg = 1 M emoria 20 MG Oral 3-30 cap, PO, l Capsule 22:54: QPM, # 180 Herm kevin [Geodon] 00 cap, 0 Refill(s) Symbicort 2016-0 Yes 2 puff, Memor ia 80/4.5 3-30 INHALATION l inhalation 22:54: , BID, # briggs aerosol 00 10.2 gm, 0 with Refill(s) adapter ziprasidone Yes 20 mg = 1 M emoria 20 MG Oral 3-30 cap, PO, l Capsule 22:54: QPM, # 180 Herm kevin [Geodon] 00 cap, 0 Refill(s) Symbicort 2016-0 Yes 2 puff, Memor ia 80/4.5 3-30 INHALATION l inhalation 22:54: , BID, # briggs aerosol 00 10.2 gm, 0 with Refill(s) adapter atorvastati Yes 80 mg = 1 M emoria n 80 MG 3-30 tab, PO, l Oral Tablet 22:53: Bedtime, # Venkatesh [Lipitor] 00 30 tab, 0 Refill(s) omeprazole Yes 20 mg = 1 Me moria 20 mg oral 3-30 cap, PO, l delayed 22:53: Daily, # Rajat n release 00 30 cap, 1 capsule Refill(s) 24 HR Yes 300 mg = 1 Memori a Bupropion 3-30 tab, PO, l Hydrochlori 22:53: Daily, Earnest Hira jason de 300 MG 00 30 tab, 0 Extended Refill(s) Release Tablet [Wellbutrin ] 24 HR Yes 225 mg = 3 Memori a venlafaxine 3-30 cap, PO, l 75 MG 22:53: Daily, # Venkatesh Extended 00 30 cap, 0 Release Refill(s) Capsule [Effexor] atorvastati Yes 80 mg = 1 M emoria n 80 MG 3-30 tab, PO, l Oral Tablet 22:53: Bedtime, # Venkatesh [Lipitor] 00 30 tab, 0 Refill(s) omeprazole Yes 20 mg = 1 Me moria 20 mg oral 3-30 cap, PO, l delayed 22:53: Daily, # Rajat n release 00 30 cap, 1 capsule Refill(s) 24 HR Yes 300 mg = 1 Memori a Bupropion 3-30 tab, PO, l Hydrochlori 22:53: Daily, Earnest pierce 300 MG 00 30 tab, 0 Extended Refill(s) Release Tablet [Wellbutrin ] 24 HR Yes 225 mg = 3 Memori a venlafaxine 3-30 cap, PO, l 75 MG 22:53: Daily, Earnest Riddle Extended 00 30 cap, 0 Release Refill(s) Capsule [Effexor] Amlodipine Yes 1 tab, PO, M emoria 5 MG / 3-30 Daily, # yue Hydrochloro 22:52: 30 tab, 0 H ermann thiazide 25 00 Refill(s) MG / valsartan 160 MG Oral Tablet [Exforge HCT 5/160/25] metoprolol Yes 50 mg = 1 Me moria 50 mg oral 3-30 tab, PO, l tablet, 22:52: Daily, # Rajat n extended 00 30 tab, 0 release Refill(s) meloxicam Yes 15 mg = 1 Mem oria 15 MG Oral 3-30 tab, PO, l Tablet 22:52: Daily, Earnest Riddle [Mobic] 00 30 tab, 0 Refill(s) Amlodipine Yes 1 tab, PO, M emoria 5 MG / 3-30 Daily, # l Hydrochloro 22:52: 30 tab, 0 H ermann thiazide 25 00 Refill(s) MG / valsartan 160 MG Oral Tablet [Exforge HCT 160/25] metoprolol 2015-0 Yes 50 mg = 1 Me moria 50 mg oral 3-30 tab, PO, l tablet, 22:52: Daily, # Rajat n extended 00 30 tab, 0 release Refill(s) meloxicam 2016-0 Yes 15 mg = 1 Mem oria 15 MG Oral 3-30 tab, PO, l Tablet 22:52: Daily, # [place] [Mobic] 00 30 tab, 0 Refill(s) levothyroxi 2015-0 Yes 125 Memori a ne 125 mcg 3-30 microgram l (0.125 mg) 22:51: = 1 tab, Her briggs oral tablet 00 PO, Daily, # 30 tab, 0 Refill(s) diazepam 5 2015-0 Yes 5 mg = 1 Mem oria mg oral 3-30 tab, PO, l tablet 22:51: BID, # 30 Rajat n 00 tab, 0 Refill(s) levothyroxi 0 Yes 125 Memori a ne 125 mcg 3-30 microgram l (0.125 mg) 22:51: = 1 tab, Her briggs oral tablet 00 PO, Daily, # 30 tab, 0 Refill(s) diazepam 5 2015-0 Yes 5 mg = 1 Mem oria mg oral 3-30 tab, PO, l tablet 22:51: BID, # 30 Rajat n 00 tab, 0 Refill(s) Sodium 2015-0 No 1,000 mL, Memori a Chloride 3-30 1,000 l 0.154 22:20: ml/hr, [place] MEQ/ML 00 Infuse Injectable Over: 1 Solution Hour, Route: IV, ONCE, Priority: STAT, Dosing Weight 68.182 kg, Start date: 08/07/15 17:20:00, Duration: 1 doses or times, Stop date: 08/07/15 17:20:00 Sodium 2015-0 No 1,000 mL, Memori a Chloride 3-30 1,000 l 0.154 22:20: ml/hr, [place] MEQ/ML 00 Infuse Injectable Over: 1 Solution Hour, Route: IV, ONCE, Priority: STAT, Dosing Weight 68.182 kg, Start date: 08/07/15 17:20:00, Duration: 1 doses or times, Stop date: 08/07/15 17:20:00 Aspirin 2016-0 No 324 mg, Memoria 3-30 Route: l 22:14: CHEW, Drug Venkatesh 00 form: CHEWTAB, ONCE, Dosing Weight 68.182, kg, Priority: STAT, Start date: 08/07/15 17:14:00, Stop date: 08/07/15 17:14:00 Aspirin 2016-0 No 324 mg, Memoria 3-30 Route: l 22:14: CHEW, Drug Venkatesh 00 form: CHEWTAB, ONCE, Dosing Weight 68.182, kg, Priority: STAT, Start date: 08/07/15 17:14:00, Stop date: 08/07/15 17:14:00 Saline 2016-0 No Notes: Memoria Flush 0.9% 3-30 (Same as: l 20:18: BD Venkatesh Posiflush) Saline 2015-0 No Notes: [facility] Flush 0.9% 3-30 (Same as: l 20:18: BD [place] Posiflush) Ativan 2015-0 No 0.5 mg, Memoria 2-27 Route: l 22:17: IVP, Drug form: INJ, ONCE, Dosing Weight 74.545, kg, Priority: STAT, Start date: 07/06/15 16:17:00, Stop date: 07/06/15 16:17:00 Aspirin 2015-0 No 324 mg, Memoria 2-27 Route: PO, l 22:17: ONCE, Dosing Weight 74.545, kg, Priority: STAT, Start date: 07/06/15 16:17:00, Stop date: 07/06/15 16:17:00 Morphine 2015-0 No 2 mg, Memoria 2-27 Route: l 22:17: IVP, ONCE, Dosing Weight 74.545, kg, Priority: STAT, Start date: 07/06/15 16:17:00, Stop date: 07/06/15 16:17:00 Ondansetron 2015-0 No 4 mg, Memor ia 2- Route: l 22:17: IVP, ONCE, Dosing Weight 74.545, kg, Priority: STAT, Start date: 07/06/15 16:17:00, Stop date: 07/06/15 16:17:00 Saline 2016-0 No Notes: [facility] Flush 0.9% 2-27 (Same as: l 22:17: BD [place] 00 Posiflush) Morphine 2016-0 No 2 mg, Memoria 2-27 Route: l 22:17: IVP, ONCE, Dosing Weight 74.545, kg, Priority: STAT, Start date: 07/06/15 16:17:00, Stop date: 07/06/15 16:17:00 Ondansetron 2016-0 No 4 mg, Memor ia 2-27 Route: l 22:17: IVP, ONCE, Dosing Weight 74.545, kg, Priority: STAT, Start date: 07/06/15 16:17:00, Stop date: 07/06/15 16:17:00 Saline 2016-0 No Notes: [facility] Flush 0.9% 2-27 (Same as: l 22:17: BD Posiflush) Ativan 2015-0 No 0.5 mg, Memoria 2-27 Route: l 22:17: IVP, Drug form: INJ, ONCE, Dosing Weight 74.545, kg, Priority: STAT, Start date: 07/06/15 16:17:00, Stop date: 07/06/15 16:17:00 Aspirin 2016-0 No 324 mg, Memoria 2-27 Route: PO, l 22:17: ONCE, Dosing Weight 74.545, kg, Priority: STAT, Start date: 07/06/15 16:17:00, Stop date: 07/06/15 16:17:00 Famotidine 2015-0 No 20 mg, Memor ia 2-27 Route: l 22:16: IVP, ONCE, Dosing Weight 74.545, kg, Priority: STAT, Start date: 07/06/15 16:16:00, Stop date: 07/06/15 16:16:00 Famotidine 2015-0 No 20 mg, Memor ia 2-27 Route: l 22:16: IVP, ONCE, Dosing Weight 74.545, kg, Priority: STAT, Start date: 07/06/15 16:16:00, Stop date: 07/06/15 16:16:00 Valium 2016-0 Yes 0 Memoria 2-27 Refill(s) l 22:14: [place] 00 Valium 2016-0 Yes 0 Memoria 2-27 Refill(s) l 22:14: Amlodipine 2016-0 Yes 1 tab, PO, M emoria 10 MG / 2-27 Daily, 0 l valsartan 22:11: Refill(s) Her briggs 160 MG Oral 00 Tablet [Exforge ] Omeprazole 2016-0 Yes PO, Daily, M emoria 2-27 0 l 22:11: Refill(s) Amlodipine 2016- Yes 1 tab, PO, M emoria 10 MG / 2-27 Daily, 0 l valsartan 22:11: Refill(s) Her briggs 160 MG Oral 00 Tablet [Exforge ] Omeprazole 2016-0 Yes PO, Daily, M emoria 227 0 l 22:11: Refill(s) Crestor 2016-0 Yes PO, Memoria 2-27 Bedtime, 0 l 22:10: Refill(s) metoprolol 2016-0 Yes BID, 0 Memor ia tartrate 2-27 Refill(s) l 22:10: Levothroid 2016-0 Yes PO, Daily, M emoria 227 0 l 22:10: Refill(s) Crestor 2016-0 Yes PO, Memoria 2-27 Bedtime, 0 l 22:10: Refill(s) metoprolol 2016-0 Yes BID, 0 Memor ia tartrate 2-27 Refill(s) l 22:10: Levothroid 2016-0 Yes PO, Daily, M emoria 2-27 0 l 22:10: Refill(s) Wellbutrin 2016-0 Yes PO, 0 Memori a 2-27 Refill(s) l 22:09: Advair 2016-0 Yes 1 puff, Memoria Diskus 100 2-27 INHALATION l mcg-50 mcg 22:09: , BID, 0 Her briggs inhalation 00 Refill(s) powder Wellbutrin 2016-0 Yes PO, 0 Memori a 2-27 Refill(s) l 22:09: Venkatesh 00 Advair 2016-0 Yes 1 puff, Memoria Diskus 100 2-27 INHALATION l mcg-50 mcg 22:09: , BID, 0 Her briggs inhalation 00 Refill(s) powder clindamycin 2016 Yes 300 mg = 1 Memoria 300 mg oral 2-12 cap, PO, l capsule 22:47: Q6H, X 10 Queenie nn 00 day, # 40 cap, 0 Refill(s) tramadol 0 Yes 50 mg = 1 Vic bravo hydrochlori 2-12 tab, PO, l de 50 MG 22:47: Q6H, PRN Queenie nn Oral Tablet 00 Pain, X 10 day, # 40 tab, 0 Refill(s) clindamycin Yes 300 mg = 1 Memoria 300 mg oral 2-12 cap, PO, l capsule 22:47: Q6H, X 10 Queenie nn 00 day, # 40 cap, 0 Refill(s) tramadol 0 Yes 50 mg = 1 Vic bravo hydrochlori 2-12 tab, PO, l de 50 MG 22:47: Q6H, PRN Queenie nn Oral Tablet 00 Pain, X 10 day, # 40 tab, 0 Refill(s) Sodium 2015-0 No 1,000 mL, Memori a Chloride 2-12 1,000 l 0.154 19:42: ml/hr, [place] MEQ/ML 00 Infuse Injectable Over: 1 Solution hr, Route: IV, 1,000, Drug form: INJ, ONCE, Priority: STAT, Dosing Weight 78.182 kg, Start date: 06/21/15 13:42:00, Duration: 1 doses or times, Stop date: 06/21/15 13:42:00 Sodium 2016-0 No 1,000 mL, Memori a Chloride 2-12 1,000 l 0.154 19:42: ml/hr, [place] MEQ/ML 00 Infuse Injectable Over: 1 Solution hr, Route: IV, 1,000, Drug form: INJ, ONCE, Priority: STAT, Dosing Weight 78.182 kg, Start date: 06/21/15 13:42:00, Duration: 1 doses or times, Stop date: 06/21/15 13:42:00 Amlodipine 2015-0 No Notes: Memor ia 2-12 (Same as: l 19:08: Norvasc) Venkatesh 00 Amlodipine 2015-0 No Notes: Memor ia 2-12 (Same as: l 19:08: Norvasc) [place] 00 Vital Signs Vital Name Observation Time Observation Value Comments Source Temperature Oral (F) 2015-09-27 00:26:00 97.5 F [facility] [place] Heart Rate 2015-09-27 00:26:00 [facility] Venkatesh Respitory Rate 2015-09-27 00:26:00 Mem[facility] al [place] Systolic (mm Hg) 2015-09-27 00:26:00 Vic rial [place] Diastolic (mm Hg) 2015-09-27 00:26:00 Mem orial [place] Systolic (mm Hg) 2015-09-26 20:22:00 Vic rial Venkatesh Diastolic (mm Hg) 2015-09-26 20:22:00 Mem orial Venkatesh Respitory Rate 2015-09-26 20:22:00 [facility]ori al Venkatesh Heart Rate 2015-09-26 20:22:00 [facility] Ven[facility] Temperature Oral (F) 2015-09-26 20:22:00 98.0 F [facility] [place] Temperature Oral (F) 2015-09-26 16:25:00 98.6 F [facility] [place] Heart Rate 2015-09-26 16:25:00 [facility] Venkatesh Systolic (mm Hg) 2015-09-26 16:25:00 Vic rial [place] Diastolic (mm Hg) 2015-09-26 16:25:00 Mem orial Venkatesh Respitory Rate 2015-09-26 16:25:00 [facility] al [place] Weight 2015-09-26 14:30:00 [facility] [place] Height 2015-09-26 00:47:00 162.56 cm [facility] Weight 2015-09-26 00:47:00 [facility] [place] BMI Calculated 2015-09-26 00:47:00 [facility] al Venkatesh Weight 2015-09-25 20:41:00 [facility] [place] Height 2015-09-12 17:23:00 167.64 cm [facility] Weight 2015-09-12 17:23:00 [facility] BMI Calculated 2015-09-12 17:23:00 [facility] al Venkatesh Respitory Rate 2015-08-09 03:00:00 [facility] [place] Systolic (mm Hg) 2015-08-09 03:00:00 Vic rial [place] Diastolic (mm Hg) 2015-08-09 03:00:00 Mem orial [place] Respitory Rate 2015-08-09 02:00:00 [facility] [place] Systolic (mm Hg) 2015-08-09 02:00:00 Vic rial [place] Diastolic (mm Hg) 2015-08-09 02:00:00 Mem orial Venkatesh Systolic (mm Hg) 2015-08-09 01:20:00 Vic rial [place] Diastolic (mm Hg) 2015-08-09 01:20:00 Mem orial [place] Respitory Rate 2015-08-09 01:20:00 [facility] [place] Temperature Oral (F) 2015-08-08 09:00:00 97.7 F [facility] [place] Temperature Oral (F) 2015-08-08 01:00:00 98.1 F [facility] Venk[facility]h Weight 2015-08-08 00:00:00 [facility] [place] BMI Calculated 2015-08-08 00:00:00 [facility] [place] Height 2015-08-08 00:00:00 162.56 cm [facility] [place] Heart Rate 2015-08-07 20:08:00 [facility] Venkatesh Height 2015-08-07 20:08:00 162.56 cm [facility] BMI Calculated 2015-08-07 20:08:00 [facility] al Venkatesh Temperature Oral (F) 2015-08-07 20:08:00 98.0 F [facility] Weight 2015-08-07 20:08:00 [facility] [place] Temperature Oral (F) 2015-07-06 22:56:00 98.5 F [facility] Venk[facility]h Systolic (mm Hg) 2015-07-06 22:56:00 Vic rial Venkatesh Diastolic (mm Hg) 2015-07-06 22:56:00 Mem orial [place] Respitory Rate 2015-07-06 22:56:00 [facility] al Venkatesh Heart Rate 2015-07-06 22:56:00 [facility] BMI Calculated 2015-07-06 22:03:00 [facility] al Venkatesh Weight 2015-07-06 22:03:00 [facility] Height 2015-07-06 22:03:00 162.56 cm [facility] [place] Respitory Rate 2015-07-06 22:03:00 [facility] al Venkatesh Temperature Oral (F) 2015-07-06 22:03:00 98.5 F [facility] Heart Rate 2015-07-06 22:03:00 [facility] Systolic (mm Hg) 2015-07-06 22:03:00 Vic rial [place] Diastolic (mm Hg) 2015-07-06 22:03:00 Mem orial [place] Respitory Rate 2015-06-22 00:17:00 Memori al Venkatesh Systolic (mm Hg) 2015-06-22 00:17:00 Vic rial Venkatesh Diastolic (mm Hg) 2015-06-22 00:17:00 Mem orial Venkatesh Systolic (mm Hg) 2015-06-21 21:17:00 Vic rial [place] Diastolic (mm Hg) 2015-06-21 21:17:00 Mem orial Venkatesh Respitory Rate 2015-06-21 21:17:00 Memori al Venkatesh Systolic (mm Hg) 2015-06-21 19:37:00 Vic rial [place] Diastolic (mm Hg) 2015-06-21 19:37:00 Mem orial [place] Respitory Rate 2015-06-21 19:37:00 [facility]ori al [place] Height 2015-06-21 18:14:00 162.56 cm [facility] [place] Weight 2015-06-21 18:14:00 [facility] Venk[facility]h BMI Calculated 2015-06-21 18:14:00 [facility] [place] Heart Rate 2015-06-21 18:14:00 [facility] Venkatesh Temperature Oral (F) 2015-06-21 18:14:00 98.4 F [facility] [place] Procedures Procedure Date / Time Performing Clinician Source Performed Cardiac catheterization of Memor ial Venkatesh right and left heart for ventriculography Plan of Care Planned Activity Planned Date Details Comments Source Future Scheduled 2022-10-14 Screening [facility] Test 11:55:12 malignant neoplasm of cervix (procedure) [code = 925762871] Future Scheduled 2022-10-14 BREAST CANCER [facility] Test 11:55:12 SCREENING [code = BREAST CANCER SCREENING] Future Scheduled 2022-10-14 [facility] Test 11:55:12 malignant neoplasm of colon (procedure) [code = 848297623] Future Scheduled 2022-10-14 [facility] Test 11:55:12 malignant neoplasm of colon (procedure) [code = 890669967] Future Scheduled 2022-10-14 [facility]12 [facility] 2) [code = SHINGLES VACCINES (1 of 2)] Future Scheduled 2022-10-14 INFLUENZA VACCINE [facility] Test 11:55:12 [code = INFLUENZA VACCINE] Future Scheduled 2022-10-14 Scre[facility] Test 11:55:12 malignant neoplasm of colon (procedure) [code = 155906076] Future Scheduled 2022-10-14 Scre[facility] Test 11:55:12 malignant neoplasm of colon (procedure) [code = 523675789] Future Scheduled 2022-10-14 [facility] Test 11:55:12 malignant neoplasm of colon (procedure) [code = 304851420] Future Scheduled 2022-10-14 COVID-19 VACCINE (#1) [facility] Test 11:55:12 [code = COVID-19 VACCINE (#1)] Future Scheduled 2021-03-19 COVID-19 VACCINE (1) Met [facility] Test 05:51:38 [code = COVID-19 VACCINE (1)] Future Scheduled 2021-03-19 Scre[facility] Test 05:51:38 malignant neoplasm of cervix (procedure) [code = 418998418] Future Scheduled 2021-03-19 BREAST CANCER [facility] Test 05:51:38 SCREENING [code = BREAST CANCER SCREENING] Future Scheduled 2021-03-19 COLONOSCOPY SCREENING [facility] Test 05:51:38 [code = COLONOSCOPY SCREENING] Future Scheduled 2021-03-19 SHINGLES VACCINES [facility] Test 05:51:38 (#1) [code = SHINGLES VACCINES (#1)] Future Scheduled 2021-03-19 INFLUENZA VACCINE [facility] Test 05:51:38 [code = INFLUENZA VACCINE] Encounters Start End Encounter Admission Attending Care Care Encounter Source Date/Time Date/Time Type Type Clinicians Facility Department ID 2022-10-08 Outpatient [facility] [id number] Common 08:03:00 [id number] [facility] 2022-09-09 Outpatient [facility] [id number] Common 13:07:00 [id number] [facility] 2022-08-18 Outpatient [facility] [id number] Common 11:00:00 [id number] [facility] 2022-04-22 Outpatient [facility] [id number] Common 08:36:01 [facility] 2022-04-06 Outpatient [facility] [id number] Common 13:38:01 [facility] 2022-04-01 Outpatient CHAVARRIA, STLMLC [facility] [id number] Common 10:56:02 [facility] 2022-01-22 Outpatient [facility] [id number] Common 08:36:01 [facility] 2021-10-28 Outpatient [facility] [id number] Common 09:43:04 [facility] 2021-10-09 Outpatient [facility] [id number] Common 13:39:02 [facility] 2021-10-15 2021-10-15 Outpatient BASILIO Barlow [facility] [id number] [facility] 12:00:00 12:00:00 [facility]yl [facility] 2020-10-23 2020-10-23 Outpatient BASILIO Barlow [facility] [id number] [facility] 12:00:00 12:00:00 Meryl 91 [facility] 2020-10-09 2020-10-09 Outpatient BASILIO Barlow [facility] [id number] [facility] 12:00:00 12:00:00 Meryl 72 [facility] 2015-09-25 2015-09-27 OBS nullFlavo [facility] [id number] [facility] 20:31:00 01:10:00 Observatio mary jane Riddle 04 l n Patient [facility] Her briggs 2015-09-25 2015-09-27 OBS [facility] [id number] [facility]oria 20:31:00 01:10:00 Observatio mary jane Riddle 04 l n Patient [facility] 2015-09-25 2015-09-26 Outpatient Prisca, [facility] [id number] 15:31:00 20:10:00 Yohannesoj Wallace 2015-09-12 2015-09-13 Outpatient [facility] [id number] Memoria 13:21:00 04:59:00 r Venkatesh 03 [facility] 2015-09-12 2015-09-13 Outpatient [facility]Fl[facility] [id number] Mem[facility] 13:21:00 04:59:00 r Venkatesh 03 [facility] 2015-09-12 2015-09-12 Outpatient Jung, [facility] [id number] 08:21:00 23:59:00 Jose A 2015-09-11 2015-09-12 Outpt Diag nullFlavo [facility] [id number] Memoria 20:28:00 04:59:00 Services r Outpatient 00 l Imaging [facility] 2015-09-11 2015-09-12 Outpt Diag nullFlavo [facility] [id number] Memoria 20:28:00 04:59:00 Services r Outpatient 00 l Imaging [facility] 2015-09-11 2015-09-11 Outpatient Jung, [facility] [id number] 15:28:00 23:59:00 Jose A 00 2015-08-07 2015-08-09 OBS [facility]Fl[facility] [id number] [facility] 19:57:00 02:58:00 Observatio r Venkatesh 02 l n Patient [facility] 2015-08-07 2015-08-09 OBS nullFlavo [facility] [id number] [facility]oria 19:57:00 02:58:00 Observatio r Venkatesh 02 l n Patient [facility] 2015-08-07 2015-08-08 Outpatient [facility] [id number] 14:57:00 21:58:00 apathiNimisha 2015-07-06 2015-07-06 EC nullFlavo [facility] [id number] [facility] 22:01:00 23:08:00 Emergency r [place] 01 l [facility] Queenie 2015-07-06 2015-07-06 EC [facility]Flavo [facility] [id number] [facility] 22:01:00 23:08:00 Emergency r [place] 01 l Center [facility] 2015-07-06 2015-07-06 Outpatient KILEY Gunderson [facility] [id number] 16:01:00 17:08:00 Shamar Canas 2015-06-21 2015-06-22 EC nullFlavo [facility] [id number] Memoria 18:13:00 00:46:00 Emergency r Venkatesh 00 l [facility] 2015-06-21 2015-06-22 EC nullFlavo [facility] [id number] Memoria 18:13:00 00:46:00 Emergency r [place] 00 l [facility] 2015-06-21 2015-06-21 Outpatient Reece Remy [facility] [id number] 12:13:00 18:46:00 Dinesh 00 Results Test Description Test Time Test Comments Results Result Comments Source CARDIAC ENZYMES 2015-09-26 08:54:00 Test Item Value Reference Range Interpretation Comme nts CK MB (test code = CK MB) 0.7 0.5-3.6 [facility]2016-05-19 08:54:00 Test Item Value Reference Range Interpretation Comments eGFR (test code = eGFR) 57 [facility]2016-05-19 08:54:00 Test Item Value Reference Range Interpretation Comments AGAP (test code = AGAP) 12.5 10.0-20.0 [facility]2016-05-19 08:54:00 Test Item Value Reference Range Interpretation Comments Calcium Lvl (test code = Calcium Lvl) 8.6 8.5-10.5 [facility]2016-05-19 08:54:00 Test Item Value Reference Range Interpretation Comments Glucose Lvl (test code = Glucose Lvl) 82 70-99 [facility]2016-05-19 08:54:00 Test Item Value Reference Range Interpretation Comments BUN (test code = BUN) 12 7-22 [facility]2016-05-19 08:54:00 Test Item Value Reference Range Interpretation Comments Sodium Lvl (test code = Sodium Lvl) 144 135-145 [facility]2016-05-19 08:54:00 Test Item Value Reference Range Interpretation Comments CO2 (test code = CO2) 26 24-32 [facility]2016-05-19 08:54:00 Test Item Value Reference Range Interpretation Comments Potassium Lvl (test code = Potassium 3.5 3.5-5.1 Lvl) [facility]2016-05-19 08:54:00 Test Item Value Reference Range Interpretation Comments Chloride Lvl (test code = Chloride Lvl) 109 95-109 [facility]2016-05-19 08:54:00 Test Item Value Reference Range Interpretation Comments Creatinine Lvl (test code = Creatinine 1.10 0.50-1.40 Lvl) [facility] 08:54:00 Test Item Value Reference Range Interpretation Comments Segs (test code = Segs) 58.5 45.0-75.0 [place] [id number] 08:54:00 Test Item Value Reference Range Interpretation Comments Lymphocytes (test code = Lymphocytes) 31.4 20.0-40.0 [place] [id number] 08:54:00 Test Item Value Reference Range Interpretation Comments Lymphocytes # (test code = Lymphocytes 1.7 1.0-5.5 #) [facility]op[facility]zoMLT[facility]DL[facility]NKV7929-75-36 08:54:00 Test Item Value Reference Range Interpretation Comments Segs-Bands # (test code = Segs-Bands #) 3.2 1.5-8.1 [facility]NsnwsdqWNXZIXQSFJ3593-02-24 08:54:00 Test Item Value Reference Range Interpretation Comments Eosinophils # (test code 0.0 See_Comment [A utomated message] The = Eosinophils #) system whic h generated this result tra nsmitted reference range : <=0.5. The reference r xu was not used to int erpret this result as normal/abnormal . [facility]YdmwvtkJZSFXQXKRT3244-85-74 08:54:00 Test Item Value Reference Range Interpretation Comments Monocytes # (test code 0.5 See_Comment [Aut omated message] The = Monocytes #) system which generated this result tra nsmitted reference range : <=0.8. The reference r xu was not used to int erpret this result as normal/abnormal . [facility]IxmnmlwLLFSTUVIHW2630-46-15 08:54:00 Test Item Value Reference Range Interpretation Comments Basophils # (test code 0.0 See_Comment [Aut omated message] The = Basophils #) system which generated this result tra nsmitted reference range : <=0.2. The reference r xu was not used to int erpret this result as normal/abnormal . [facility]VjetfdlOGKMVIQCQY9596-59-73 08:54:00 Test Item Value Reference Range Interpretation Comments Monocytes (test code = Monocytes) 9.8 2.0-12.0 [facility]IuplilxWQWWQEHEQZ3187-82-63 08:54:00 Test Item Value Reference Range Interpretation Comments Eosinophils (test code = 0.0 See_Comment [A utomated message] The Eosinophils) system which ge nerated this result tra nsmitted reference range : <=4.0. The reference r xu was not used to int erpret this result as normal/abnormal . [facility] HospitalUitxchsPPYDMRRCLR5419-56-41 08:54:00 Test Item Value Reference Range Interpretation Comments Basophils (test code = 0.3 See_Comment [Aut omated message] The Basophils) system which ge nerated this result tra nsmitted reference range : <=1.0. The reference r xu was not used to int erpret this result as normal/abnormal . [facility] HospitalYojugyxWGSKBGUXOZ1074-16-85 08:54:00 Test Item Value Reference Range Interpretation Comments MPV (test code = MPV) 8.0 7.4-10.4 [facility] HospitalRtevdekPEIWGAAJBP4954-97-80 08:54:00 Test Item Value Reference Range Interpretation Comments RDW (test code = RDW) 15.7 11.5-14.5 [facility] HospitalNobuvscTGVINWBAEH2007-98-96 08:54:00 Test Item Value Reference Range Interpretation Comments Platelet (test code = Platelet) 161 133-450 [facility] HospitalTfycfedVNPBVOHOLQ1170-35-30 08:54:00 Test Item Value Reference Range Interpretation Comments MCHC (test code = MCHC) 32.2 32.0-36.0 [facility] HospitalRrmbbkhOMXPGOQHRU4660-44-48 08:54:00 Test Item Value Reference Range Interpretation Comments MCH (test code = MCH) 28.6 pg 27.0-31.0 [facility] HospitalXzngbmpUPPSMTPYTO6056-21-35 08:54:00 Test Item Value Reference Range Interpretation Comments Hct (test code = Hct) 34.3 36.0-48.0 [facility] HospitalZvvprjaXERKCJHYBK4541-65-07 08:54:00 Test Item Value Reference Range Interpretation Comments MCV (test code = MCV) 88.7 80.0-98.0 [facility] PplmuuiJXUNCCCRUA1552-73-14 08:54:00 Test Item Value Reference Range Interpretation Comments RBC (test code = RBC) 3.86 4.20-5.40 [facility] QhqbmmfDAWSWSBXEO3874-97-14 08:54:00 Test Item Value Reference Range Interpretation Comments Hgb (test code = Hgb) 11.0 12.0-16.0 [facility]57[facility]16 08:54:00 Test Item Value Reference Range Interpretation Comments WBC (test code = WBC) 5.5 3.7-10.4 [facility] Mister BellAC MZUHJNM4575-77-36 08:54:00 Test Item Value Reference Range Interpretation Comments Total CK (test code = Total CK) 80 12-191 [facility] SITEAC PHSZZJP2236-74-74 08:54:00 Test Item Value Reference Range Interpretation Comments Troponin-I (test code no gt See_Comment [Auto mated message] The = Troponin-I) system which g enerated this result transmit yue reference range : <=0.40. The reference r xu was not used to interpr et this result as wolf l/abnormal. [facility] connex.io2016-05-19 08:54:00 Test Item Value Reference Range Interpretation Comments CK MB Index (test 0.9 See_Comment [Automate d message] The code = CK MB Index) system w [facility] generated this result transmit yue reference range : <=2.5. The reference range was not used to interpr et this result as wolf l/abnormal. [facility] [employer]2016-05-19 08:54:00 Test Item Value Reference Range Interpretation Comments CK MB (test code = CK MB) 0.7 0.5-3.6 [facility] [employer] [id number] 08:54:00 Test Item Value Reference Range Interpretation Comments eGFR (test code = eGFR) 57 [facility] [employer] [id number] 08:54:00 Test Item Value Reference Range Interpretation Comments AGAP (test code = AGAP) 12.5 10.0-20.0 [facility] [employer] [id number] 08:54:00 Test Item Value Reference Range Interpretation Comments Calcium Lvl (test code = Calcium Lvl) 8.6 8.5-10.5 [facility]2016-05-19 08:54:00 Test Item Value Reference Range Interpretation Comments Glucose Lvl (test code = Glucose Lvl) 82 70-99 [facility]2016-05-19 08:54:00 Test Item Value Reference Range Interpretation Comments BUN (test code = BUN) 12 7-22 [facility]2016-05-19 08:54:00 Test Item Value Reference Range Interpretation Comments Sodium Lvl (test code = Sodium Lvl) 144 135-145 [facility]2016-05-19 08:54:00 Test Item Value Reference Range Interpretation Comments CO2 (test code = CO2) 26 24-32 [facility]2016-05-19 08:54:00 Test Item Value Reference Range Interpretation Comments Potassium Lvl (test code = Potassium 3.5 3.5-5.1 Lvl) [facility]2016-05-19 08:54:00 Test Item Value Reference Range Interpretation Comments Chloride Lvl (test code = Chloride Lvl) 109 95-109 [facility]2016-05-19 08:54:00 Test Item Value Reference Range Interpretation Comments Creatinine Lvl (test code = Creatinine 1.10 0.50-1.40 Lvl) [id number] 08:54:00 Test Item Value Reference Range Interpretation Comments Segs (test code = Segs) 58.5 45.0-75.0 [facility] HospitalUsegewcDZMGMOYHTP3267-90-35 08:54:00 Test Item Value Reference Range Interpretation Comments Lymphocytes (test code = Lymphocytes) 31.4 20.0-40.0 [facility] HospitalJraiufwQSUUALSYPL4546-76-70 08:54:00 Test Item Value Reference Range Interpretation Comments Lymphocytes # (test code = Lymphocytes 1.7 1.0-5.5 #) [facility] HospitalYkfxrtjHFTYEKJTWZ0009-92-04 08:54:00 Test Item Value Reference Range Interpretation Comments Segs-Bands # (test code = Segs-Bands #) 3.2 1.5-8.1 [facility] HospitalOugawezIBKAMYBCBO6622-89-62 08:54:00 Test Item Value Reference Range Interpretation Comments Eosinophils # (test code 0.0 See_Comment [A utomated message] The = Eosinophils #) system [facility] generated this result tra nsmitted reference range : <=0.5. The reference r xu was not used to int erpret this result as normal/abnormal . [facility] HospitalAkqoyiaGSJNYAPXVT0576-44-07 08:54:00 Test Item Value Reference Range Interpretation Comments Monocytes # (test code 0.5 See_Comment [Aut omated message] The = Monocytes #) system which generated this result tra nsmitted reference range : <=0.8. The reference r xu was not used to int erpret this result as normal/abnormal . [facility] HospitalKbljsztUEKUSOBGCM6111-65-12 08:54:00 Test Item Value Reference Range Interpretation Comments Basophils # (test code 0.0 See_Comment [Aut omated message] The = Basophils #) system which generated this result tra nsmitted reference range : <=0.2. The reference r xu was not used to int erpret this result as normal/abnormal . [facility] HospitalPljhwtkYVGXIJMRSG0996-42-19 08:54:00 Test Item Value Reference Range Interpretation Comments Monocytes (test code = Monocytes) 9.8 2.0-12.0 [facility] HospitalLqlzfoeNGEZSGXBQG8524-69-98 08:54:00 Test Item Value Reference Range Interpretation Comments Eosinophils (test code = 0.0 See_Comment [A utomated message] The Eosinophils) system which ge nerated this result tra nsmitted reference range : <=4.0. The reference r xu was not used to int erpret this result as normal/abnormal . [facility] HospitalPykjpzcUYPHGYCCDX7397-47-71 08:54:00 Test Item Value Reference Range Interpretation Comments Basophils (test code = 0.3 See_Comment [Aut omated message] The Basophils) system which ge nerated this result tra nsmitted reference range : <=1.0. The reference r xu was not used to int erpret this result as normal/abnormal . [facility] HospitalJgugrhnIVZFFFGAYI3609-48-39 08:54:00 Test Item Value Reference Range Interpretation Comments MPV (test code = MPV) 8.0 7.4-10.4 [facility] HospitalIvrnmjbFIULITCICY9523-08-79 08:54:00 Test Item Value Reference Range Interpretation Comments RDW (test code = RDW) 15.7 11.5-14.5 [facility] HospitalXzsajbfPKZMPWPAFW1975-30-29 08:54:00 Test Item Value Reference Range Interpretation Comments Platelet (test code = Platelet) 161 133-450 [facility]VuihjskQCKYEMVUFZ4935-39-78 08:54:00 Test Item Value Reference Range Interpretation Comments MCHC (test code = MCHC) 32.2 32.0-36.0 [facility]inteIinmdkzEFRNSWGTNP4657-72-73 08:54:00 Test Item Value Reference Range Interpretation Comments MCH (test code = MCH) 28.6 pg 27.0-31.0 [facility] PointeYdicsugIFPYAOSDPL3424-54-31 08:54:00 Test Item Value Reference Range Interpretation Comments Hct (test code = Hct) 34.3 36.0-48.0 [facility]inteZyurjfeLCEFJTLXCJ1501-89-11 08:54:00 Test Item Value Reference Range Interpretation Comments MCV (test code = MCV) 88.7 80.0-98.0 [facility] HospitalAaddxjxXRFVIYCIFE1053-38-36 08:54:00 Test Item Value Reference Range Interpretation Comments RBC (test code = RBC) 3.86 4.20-5.40 [facility]inteCgifrfmJJBWMDWXRQ2065-87-81 08:54:00 Test Item Value Reference Range Interpretation Comments Hgb (test code = Hgb) 11.0 12.0-16.0 [facility]inteRnxbyrxERNMKZQCOI8106-11-62 08:54:00 Test Item Value Reference Range Interpretation Comments WBC (test code = WBC) 5.5 3.7-10.4 [facility] [id number] 08:54:00 Test Item Value Reference Range Interpretation Comments Total CK (test code = Total CK) 80 12-191 [facility] DTRJCYC6554-55-08 08:54:00 Test Item Value Reference Range Interpretation Comments Troponin-I (test code no gt See_Comment [Auto mated message] The = Troponin-I) system which g enerated this result transmit yue reference range : <=0.40. The reference r xu was not used to interpr et this result as wolf l/abnormal. [facility] RSIRRJV1682-75-26 08:54:00 Test Item Value Reference Range Interpretation Comments CK MB Index (test 0.9 See_Comment [Automate d message] The code = CK MB Index) system w [facility] generated this result transmit yue reference range : <=2.5. The reference range was not used to interpr et this result as wolf l/abnormal. [employer]2016-05-19 03:21:00 Test Item Value Reference Range Interpretation Comments CK MB Index (test 0.9 See_Comment [Automate d message] The code = CK MB Index) system w [employer] generated this result transmit yue reference range : <=2.5. The reference range was not used to interpr et this result as wolf l/abnormal. [facility] [employer]2016-05-19 03:21:00 Test Item Value Reference Range Interpretation Comments CK MB (test code = CK MB) 0.7 0.5-3.6 [facility] [employer]2016-05-19 03:21:00 Test Item Value Reference Range Interpretation Comments Troponin-I (test code no gt See_Comment [Auto mated message] The = Troponin-I) system which g enerated this result transmit yue reference range : <=0.40. The reference r xu was not used to interpr et this result as wolf l/abnormal. [facility] [employer]2016-05-19 03:21:00 Test Item Value Reference Range Interpretation Comments Total CK (test code = Total CK) 82 12-191 [facility] [employer]2016-05-19 03:21:00 Test Item Value Reference Range Interpretation Comments CK MB Index (test 0.9 See_Comment [Automate d message] The code = CK MB Index) system w [employer] generated this result transmit yue reference range : <=2.5. The reference range was not used to interpr et this result as wolf l/abnormal. [facility] [employer]2016-05-19 03:21:00 Test Item Value Reference Range Interpretation Comments CK MB (test code = CK MB) 0.7 0.5-3.6 [facility] [employer]2016-05-19 03:21:00 Test Item Value Reference Range Interpretation Comments Troponin-I (test code no gt See_Comment [Auto mated message] The = Troponin-I) system which g enerated this result transmit yue reference range : <=0.40. The reference r xu was not used to interpr et this result as wolf l/abnormal. [employer] [id number] 03:21:00 Test Item Value Reference Range Interpretation Comments Total CK (test code = Total CK) 82 12-191 [facility] AND [id number] 22:05:00 Test Item Value Reference Range Interpretation Comments UA Color (test code = Yellow *NA*(09/25/15 UA Color) 5:05 PM) [facility] AND [id number] 22:05:00 Test Item Value Reference Range Interpretation Comments UA Mucus (test code = UA Mucus) Moderate /LPF [facility] AND [id number] 22:05:00 Test Item Value Reference Range Interpretation Comments UA Bacteria (test code = UA Few /HPF Bacteria) [facility] AND [id number] 22:05:00 Test Item Value Reference Range Interpretation Comments UA Hyal Cast 6-10 (09/25/15 See_Comment [Automated me ssage] (test code = UA 5:05 PM) The system w [employer] Hy[employer]) generated this result transmitted ref erence range: <=2. The reference range was not used to int erpret this result as normal/abnormal . [facility] AND [id number] 22:05:00 Test Item Value Reference Range Interpretation Comments UA Turbidity (test code Slight Cloudy = UA Turbidity) (09/25/15 5:05 PM) [facility] AND [id number] 22:05:00 Test Item Value Reference Range Interpretation Comments UA pH (test code = UA pH) 6.0 1 5.0-8.0 [facility] AND [id number] 22:05:00 Test Item Value Reference Range Interpretation Comments UA Spec Grav (test >=1.030 *ABN*(09/25/15 code = UA Spec Grav) 5:05 PM) [facility] AND [id number] 22:05:00 Test Item Value Reference Range Interpretation Comments UA Protein (test code = Trace *ABN*(09/25/15 UA Protein) 5:05 PM) [facility] AND [id number] 22:05:00 Test Item Value Reference Range Interpretation Comments UA Leuk Est (test code Trace *ABN*(09/25/15 = UA Leuk Est) 5:05 PM) [facility] AND [id number] 22:05:00 Test Item Value Reference Range Interpretation Comments UA Nitrite (test code Negative (09/25/15 5:05 = UA Nitrite) PM) [facility] AND [id number] 22:05:00 Test Item Value Reference Range Interpretation Comments UA WBC (test code = UA WBC) 3-5 /HPF [facility] AND [id number] 22:05:00 Test Item Value Reference Range Interpretation Comments UA Sq Epi (test code = UA Sq Epi) Few /LPF [facility] AND [id number] 22:05:00 Test Item Value Reference Range Interpretation Comments UA Blood (test code = Negative (09/25/15 5:05 UA Blood) PM) [facility] AND [id number] 22:05:00 Test Item Value Reference Range Interpretation Comments UA RBC (test code = 0-2 /HPF See_Comment [Automa yue message] The UA RBC) system which ge nerated this result tra nsmitted reference range : <=2. The reference range was not used to interpr et this result as wolf l/abnormal. [facility] AND [id number] 22:05:00 Test Item Value Reference Range Interpretation Comments UA Glucose (test code Negative (09/25/15 5:05 = UA Glucose) PM) [facility] AND [id number] 22:05:00 Test Item Value Reference Range Interpretation Comments UA Urobilinogen (test code = UA 0.2 0.1-1.0 Urobilinogen) [facility] AND [id number] 22:05:00 Test Item Value Reference Range Interpretation Comments UA Ketones (test code Negative *NA*(09/25/15 = UA Ketones) 5:05 PM) [facility] AND [id number] 22:05:00 Test Item Value Reference Range Interpretation Comments UA Bili (test code = Small *ABN*(09/25/15 UA Bili) 5:05 PM) [facility] AND [id number] 22:05:00 Test Item Value Reference Range Interpretation Comments UA Color (test code = Yellow *NA*(09/25/15 UA Color) 5:05 PM) [facility] AND [id number] 22:05:00 Test Item Value Reference Range Interpretation Comments UA Mucus (test code = UA Mucus) Moderate /LPF [facility] AND [id number] 22:05:00 Test Item Value Reference Range Interpretation Comments UA Bacteria (test code = UA Few /HPF Bacteria) [facility] AND [id number] 22:05:00 Test Item Value Reference Range Interpretation Comments UA Hyal Cast 6-10 (09/25/15 See_Comment [Automated me ssage] (test code = UA 5:05 PM) The system w [employer]) generated this result transmitted ref erence range: <=2. The reference range was not used to int erpret this result as normal/abnormal . [facility] AND [id number] 22:05:00 Test Item Value Reference Range Interpretation Comments UA Turbidity (test code Slight Cloudy = UA Turbidity) (09/25/15 5:05 PM) [facility] AND [id number] 22:05:00 Test Item Value Reference Range Interpretation Comments UA pH (test code = UA pH) 6.0 1 5.0-8.0 [facility] AND [id number] 22:05:00 Test Item Value Reference Range Interpretation Comments UA Spec Grav (test >=1.030 *ABN*(09/25/15 code = UA Spec Grav) 5:05 PM) [facility] AND [id number] 22:05:00 Test Item Value Reference Range Interpretation Comments UA Protein (test code = Trace *ABN*(09/25/15 UA Protein) 5:05 PM) [facility] AND [id number] 22:05:00 Test Item Value Reference Range Interpretation Comments UA Leuk Est (test code Trace *ABN*(09/25/15 = UA Leuk Est) 5:05 PM) [facility] AND [id number] 22:05:00 Test Item Value Reference Range Interpretation Comments UA Nitrite (test code Negative (09/25/15 5:05 = UA Nitrite) PM) [facility] [id number] 22:05:00 Test Item Value Reference Range Interpretation Comments UA WBC (test code = UA WBC) 3-5 /HPF [facility] AND [id number] 22:05:00 Test Item Value Reference Range Interpretation Comments UA Sq Epi (test code = UA Sq Epi) Few /LPF [facility] [id number] 22:05:00 Test Item Value Reference Range Interpretation Comments UA Blood (test code = Negative (09/25/15 5:05 [facility]A Blood) PM) [facility] [id number] 22:05:00 Test Item Value Reference Range Interpretation Comments UA RBC (test code = 0-2 /HPF See_Comment [Automa yue message] The UA RBC) system which ge nerated this result tra nsmitted reference range : <=2. The reference range was not used to interpr et this result as wolf l/abnormal. [facility] [id number] 22:05:00 Test Item Value Reference Range Interpretation Comments UA Glucose (test code Negative (09/25/15 5:05 = UA Glucose) PM) [facility] [id number] 22:05:00 Test Item Value Reference Range Interpretation Comments UA Urobilinogen (test code = UA 0.2 0.1-1.0 Urobilinogen) [facility] [id number] 22:05:00 Test Item Value Reference Range Interpretation Comments UA Ketones (test code Negative *NA*(09/25/15 = UA Ketones) 5:05 PM) [facility] [id number] 22:05:00 Test Item Value Reference Range Interpretation Comments UA Bili (test code = Small *ABN*(09/25/15 UA Bili) 5:05 PM) [facility] [id number] 21:17:00 Test Item Value Reference Range Interpretation Comments Total CK (test code = Total CK) 94 12-[address] [facility] [id number] 21:17:00 Test Item Value Reference Range Interpretation Comments Troponin-I (test <0.015 ng/mL See_Comment [Automated message] The code = system which ge nerated Troponin-I) this result tra nsmitted reference range : <=0.40. The reference r xu was not used to int erpret this result as normal/abnormal . [facility] [id number] 21:17:00 Test Item Value Reference Range Interpretation Comments Magnesium Lvl (test code = Magnesium 2.1 1.8-2.4 Lvl) [facility]wdsmskSKBDHXPKHJYE4737-48-15 21:17:00 Test Item Value Reference Range Interpretation Comments AGAP (test code = AGAP) 9.6 10.0-20.0 [facility] HospitalFhnngslDDVVSRULNBGJ3087-45-59 21:17:00 Test Item Value Reference Range Interpretation Comments B/C Ratio (test code = B/C Ratio) 11 6-25 [facility] HospitalTrqlyrmHOUOPHIPKOTN5194-88-93 21:17:00 Test Item Value Reference Range Interpretation Comments Globulin (test code = Globulin) 3.8 2.0-4.0 [facility] HospitalUmcfjvqETWFXEEFTQWA2316-26-79 21:17:00 Test Item Value Reference Range Interpretation Comments A/G Ratio (test code = A/G Ratio) 1.0 0.7-1.6 [facility] HospitalZecpczhSFDGLWINBBMP2536-94-08 21:17:00 Test Item Value Reference Range Interpretation Comments eGFR (test code = eGFR) 35 [facility] HospitalRjgprezPWMJBVXVYAXG3433-30-85 21:17:00 Test Item Value Reference Range Interpretation Comments Bili Total (test code = Bili Total) 0.4 0.2-1.3 [facility] HospitalAtaaqfnXNFKDDXYIQAJ5836-20-28 21:17:00 Test Item Value Reference Range Interpretation Comments AST (test code = AST) 16 See_Comment [Auto mated message] The system which ge nerated this result transmit yue reference range : <=37. The reference range was not used to interpr et this result as wolf l/abnormal. [facility] HospitalShbuswjBDBEMIEBNRWC3429-55-24 21:17:00 Test Item Value Reference Range Interpretation Comments Alk Phos (test code = Alk Phos) 78 39-136 [facility] HospitalIgnkypaIVGYQBJLZWXS5336-26-49 21:17:00 Test Item Value Reference Range Interpretation Comments ALT (test code = ALT) 17 See_Comment [Auto mated message] The system which ge nerated this result transmit yue reference range : <=65. The reference range was not used to interpr et this result as wolf l/abnormal. [facility] HospitalLplpxgwKDXYWIGVOYSY9064-35-70 21:17:00 Test Item Value Reference Range Interpretation Comments Calcium Lvl (test code = Calcium Lvl) 9.2 8.5-10.5 [facility] HospitalTxsvelxJMATOZFPERDW4079-75-00 21:17:00 Test Item Value Reference Range Interpretation Comments Chloride Lvl (test code = Chloride Lvl) 103 95-109 [facility] HospitalAfzruiaBYJVDAUZUGPD9277-16-87 21:17:00 Test Item Value Reference Range Interpretation Comments CO2 (test code = CO2) 29 24-32 [facility] HospitalFbpqmjgXZCSMZIEDWZX9731-64-24 21:17:00 Test Item Value Reference Range Interpretation Comments Glucose Lvl (test code = Glucose Lvl) 74 70-99 [facility] HospitalPrxmbjdLSESHQNOQZZC4951-44-82 21:17:00 Test Item Value Reference Range Interpretation Comments BUN (test code = BUN) 18 7-22 [facility] HospitalVlbyrguNANEAIBRCYRJ0264-56-27 21:17:00 Test Item Value Reference Range Interpretation Comments Sodium Lvl (test code = Sodium Lvl) 138 135-145 [facility] HospitalOdkeukmSCQFEWJWBIWD9526-70-41 21:17:00 Test Item Value Reference Range Interpretation Comments Potassium Lvl (test code = Potassium 3.6 3.5-5.1 Lvl) [facility] HospitalDvfvolgYSNWCNCKNQBA0243-76-45 21:17:00 Test Item Value Reference Range Interpretation Comments Creatinine Lvl (test code = Creatinine 1.65 0.50-1.40 Lvl) [facility] HospitalZlgozezWQXYSOJMWDKW9810-61-49 21:17:00 Test Item Value Reference Range Interpretation Comments Total Protein (test code = Total 7.7 6.4-8.4 Protein) [facility] HospitalPwtyediWNCEHMDKXSML8910-77-10 21:17:00 Test Item Value Reference Range Interpretation Comments Albumin Lvl (test code = Albumin Lvl) 3.9 3.5-5.0 [facility]TdfdkddOBQIYRMURO2485-92-74 21:17:00 Test Item Value Reference Range Interpretation Comments PTT (test code = PTT) 29.0 s 22.9-35.8 [facility] HospitalUdxrsepIEPFAUZMZF8271-85-44 21:17:00 Test Item Value Reference Range Interpretation Comments INR (test code = INR) 1.06 0.85-1.17 [facility] HospitalYqsxerdIAGHMWPHED5182-47-04 21:17:00 Test Item Value Reference Range Interpretation Comments PT (test code = PT) 14.1 s 12.0-14.7 [facility] HospitalFqjkeciPYXYJZHXJQ0808-63-77 21:17:00 Test Item Value Reference Range Interpretation Comments Hgb (test code = Hgb) 11.6 12.0-16.0 [facility] HospitalXjeqmgtDEIMXNZWTF2519-60-08 21:17:00 Test Item Value Reference Range Interpretation Comments MCV (test code = MCV) 87.9 80.0-98.0 [facility] HospitalEfycmfjEPRUXWXAHC5169-24-77 21:17:00 Test Item Value Reference Range Interpretation Comments Hct (test code = Hct) 36.1 36.0-48.0 [facility] HospitalQqmpgjzNUBIOWZNJU3895-59-30 21:17:00 Test Item Value Reference Range Interpretation Comments WBC (test code = WBC) 6.9 3.7-10.4 [place] [id number] 21:17:00 Test Item Value Reference Range Interpretation Comments RDW (test code = RDW) 15.4 11.5-14.5 [facility] HospitalLmfiumgXJJVXTPTTI7666-13-70 21:17:00 Test Item Value Reference Range Interpretation Comments RBC (test code = RBC) 4.11 4.20-5.40 [facility] HospitalFuwrltoSTUXOACVAB4774-29-81 21:17:00 Test Item Value Reference Range Interpretation Comments Platelet (test code = Platelet) 176 133-450 [facility] HospitalPantogiKDAAOBRREC2393-59-52 21:17:00 Test Item Value Reference Range Interpretation Comments MPV (test code = MPV) 8.3 7.4-10.4 [facility] HospitalKqfqukvBRGBQGYNOZ5965-69-09 21:17:00 Test Item Value Reference Range Interpretation Comments MCH (test code = MCH) 28.2 pg 27.0-31.0 [facility] HospitalGwwjcvvJOBTRKOZUO3678-65-62 21:17:00 Test Item Value Reference Range Interpretation Comments MCHC (test code = MCHC) 32.1 32.0-36.0 [facility] HospitalBbxjzdzSHNFEOZUNT9313-50-52 21:17:00 Test Item Value Reference Range Interpretation Comments Lymphocytes # (test code = Lymphocytes 1.6 1.0-5.5 #) [facility] HospitalJnpeljpWDYFSZRJJQ3587-89-49 21:17:00 Test Item Value Reference Range Interpretation Comments Monocytes # (test code 0.7 See_Comment [Aut omated message] The = Monocytes #) system which generated this result tra nsmitted reference range : <=0.8. The reference r xu was not used to int erpret this result as normal/abnormal . [facility] HospitalIgfuknqGDINRCQKEL5755-40-84 21:17:00 Test Item Value Reference Range Interpretation Comments Segs-Bands # (test code = Segs-Bands #) 4.5 1.5-8.1 [facility]MvbmlhpBPZEVNUKYW9989-98-02 21:17:00 Test Item Value Reference Range Interpretation Comments Basophils (test code = 0.3 See_Comment [Aut omated message] The Basophils) system which ge nerated this result tra nsmitted reference range : <=1.0. The reference r xu was not used to int erpret this result as normal/abnormal . [facility]RlbwajdJRXDKGVUQF4720-92-66 21:17:00 Test Item Value Reference Range Interpretation Comments Lymphocytes (test code = Lymphocytes) 23.7 20.0-40.0 [facility] [place]inteSyhtlqnHQZXOTEMMV5650-09-46 21:17:00 Test Item Value Reference Range Interpretation Comments Monocytes (test code = Monocytes) 10.6 2.0-12.0 [facility]bpkgqXGRVMMBDTC5876-38-57 21:17:00 Test Item Value Reference Range Interpretation Comments Segs (test code = Segs) 65.4 45.0-75.0 [facility] [id number] 21:17:00 Test Item Value Reference Range Interpretation Comments Total CK (test code = Total CK) 94 12-191 [facility] HBAGEOZ0108-01-19 21:17:00 Test Item Value Reference Range Interpretation Comments Troponin-I (test <0.015 ng/mL See_Comment [Automated message] The code = system which ge nerated Troponin-I) this result tra nsmitted reference range : <=0.40. The reference r xu was not used to int erpret this result as normal/abnormal . [facility] [id number] 21:17:00 Test Item Value Reference Range Interpretation Comments Magnesium Lvl (test code = Magnesium 2.1 1.8-2.4 Lvl) [facility]QdvwdreUJQEKNPERKAL7575-18-67 21:17:00 Test Item Value Reference Range Interpretation Comments AGAP (test code = AGAP) 9.6 10.0-20.0 [facility] HospitalQyoacwtGRTUKDUWIMIA2831-42-85 21:17:00 Test Item Value Reference Range Interpretation Comments B/C Ratio (test code = B/C Ratio) 11 6-25 [facility] ClubIirztszZBMLEPVNQYBO4970-53-59 21:17:00 Test Item Value Reference Range Interpretation Comments Globulin (test code = Globulin) 3.8 2.0-4.0 [facility] HospitalOjangxdDIXRAVWTLXPL8180-70-03 21:17:00 Test Item Value Reference Range Interpretation Comments A/G Ratio (test code = A/G Ratio) 1.0 0.7-1.6 [facility] HospitalItvzpklKIXMEBQQHHCB5484-36-57 21:17:00 Test Item Value Reference Range Interpretation Comments eGFR (test code = eGFR) 35 [facility] HospitalYtdkwgeZDFFPACWWUGW7516-76-70 21:17:00 Test Item Value Reference Range Interpretation Comments Bili Total (test code = Bili Total) 0.4 0.2-1.3 [facility] HospitalSidkdtjZIQCWJKAPPMJ7894-00-62 21:17:00 Test Item Value Reference Range Interpretation Comments AST (test code = AST) 16 See_Comment [Auto mated message] The system which ge nerated this result transmit yue reference range : <=37. The reference range was not used to interpr et this result as wolf l/abnormal. [facility] HospitalDajoehxQVEYKUPKOSPC6665-53-99 21:17:00 Test Item Value Reference Range Interpretation Comments Alk Phos (test code = Alk Phos) 78 39-136 [facility] HospitalMidxslzTEDSVZHKFAUR0012-50-15 21:17:00 Test Item Value Reference Range Interpretation Comments ALT (test code = ALT) 17 See_Comment [Auto mated message] The system which ge nerated this result transmit yue reference range : <=65. The reference range was not used to interpr et this result as wolf l/abnormal. [facility] HospitalOgvdqotEGKTGZQYBAEB5339-02-07 21:17:00 Test Item Value Reference Range Interpretation Comments Calcium Lvl (test code = Calcium Lvl) 9.2 8.5-10.5 [facility] HospitalNugvxomQSISNWRSLDRN5332-16-72 21:17:00 Test Item Value Reference Range Interpretation Comments Chloride Lvl (test code = Chloride Lvl) 103 95-109 [facility] HospitalOixqrpaLXVVGIHCJAPI1468-16-28 21:17:00 Test Item Value Reference Range Interpretation Comments CO2 (test code = CO2) 29 24-32 [facility] HospitalXhgbzwtKTZDQWDYSHTY8418-77-01 21:17:00 Test Item Value Reference Range Interpretation Comments Glucose Lvl (test code = Glucose Lvl) 74 70-99 [facility] HospitalIazyrbgYNJGACQXKNLT6744-02-38 21:17:00 Test Item Value Reference Range Interpretation Comments BUN (test code = BUN) 18 7-22 [facility] HospitalNfuebhiVJEXPKMZYHNS7602-61-68 21:17:00 Test Item Value Reference Range Interpretation Comments Sodium Lvl (test code = Sodium Lvl) 138 135-145 [facility] HospitalPdeghayOWEXLYWRGUKM2247-25-85 21:17:00 Test Item Value Reference Range Interpretation Comments Potassium Lvl (test code = Potassium 3.6 3.5-5.1 Lvl) [facility] HospitalOploxyjWCSLYTTXDZFA1689-63-84 21:17:00 Test Item Value Reference Range Interpretation Comments Creatinine Lvl (test code = Creatinine 1.65 0.50-1.40 Lvl) [facility] HospitalVygnyfzWFXDIMVSHFPT1257-62-03 21:17:00 Test Item Value Reference Range Interpretation Comments Total Protein (test code = Total 7.7 6.4-8.4 Protein) [facility] HospitalNtjsmbwWPCMYUJIHIZO6690-98-14 21:17:00 Test Item Value Reference Range Interpretation Comments Albumin Lvl (test code = Albumin Lvl) 3.9 3.5-5.0 [facility]WtydojbPUWCCYDGJU6976-75-85 21:17:00 Test Item Value Reference Range Interpretation Comments PTT (test code = PTT) 29.0 s 22.9-35.8 [facility] HospitalAizdnafHMGDUBWQGL1249-36-19 21:17:00 Test Item Value Reference Range Interpretation Comments INR (test code = INR) 1.06 0.85-1.17 [facility] HospitalEgyzscvXODYIZQZAX0477-71-51 21:17:00 Test Item Value Reference Range Interpretation Comments PT (test code = PT) 14.1 s 12.0-14.7 [facility] HospitalJcvecbgPNHEBXMMJM6113-95-83 21:17:00 Test Item Value Reference Range Interpretation Comments Hgb (test code = Hgb) 11.6 12.0-16.0 [facility] HospitalLkqooidKGZBOWMJNR0345-35-45 21:17:00 Test Item Value Reference Range Interpretation Comments MCV (test code = MCV) 87.9 80.0-98.0 [facility] HospitalZnlgwijLTNWBVXZJH4096-08-26 21:17:00 Test Item Value Reference Range Interpretation Comments Hct (test code = Hct) 36.1 36.0-48.0 [facility] HospitalJiytczdNGHYJKMYCD8250-74-58 21:17:00 Test Item Value Reference Range Interpretation Comments WBC (test code = WBC) 6.9 3.7-10.4 [facility] HospitalDajymatQAPXGAXGYN6877-46-33 21:17:00 Test Item Value Reference Range Interpretation Comments RDW (test code = RDW) 15.4 11.5-14.5 [facility] HospitalUyhpnbfMRNRMMLDML4434-46-15 21:17:00 Test Item Value Reference Range Interpretation Comments RBC (test code = RBC) 4.11 4.20-5.40 [facility] HospitalRkjmlrlMDADPYPSPU2239-72-15 21:17:00 Test Item Value Reference Range Interpretation Comments Platelet (test code = Platelet) 176 133-450 [facility] HospitalUeydquxQFCOCPOVFW0791-39-12 21:17:00 Test Item Value Reference Range Interpretation Comments MPV (test code = MPV) 8.3 7.4-10.4 [facility] HospitalIcxdllrGZIRBDUKKD8862-45-56 21:17:00 Test Item Value Reference Range Interpretation Comments MCH (test code = MCH) 28.2 pg 27.0-31.0 [facility] HospitalMshctuhBFQIWTIAJN7403-74-41 21:17:00 Test Item Value Reference Range Interpretation Comments MCHC (test code = MCHC) 32.1 32.0-36.0 [facility] HospitalGrkcamzCHDNDICSEQ3591-16-36 21:17:00 Test Item Value Reference Range Interpretation Comments Lymphocytes # (test code = Lymphocytes 1.6 1.0-5.5 #) [facility] HospitalJlxipbsFJPPOROYIC2099-57-89 21:17:00 Test Item Value Reference Range Interpretation Comments Monocytes # (test code 0.7 See_Comment [Aut omated message] The = Monocytes #) system which generated this result tra nsmitted reference range : <=0.8. The reference r xu was not used to int erpret this result as normal/abnormal . [facility] HospitalMmjowhyZXQHPPDDML6540-98-37 21:17:00 Test Item Value Reference Range Interpretation Comments Segs-Bands # (test code = Segs-Bands #) 4.5 1.5-8.1 [facility] HospitalReoidycURUNVPURFS8990-51-84 21:17:00 Test Item Value Reference Range Interpretation Comments Basophils (test code = 0.3 See_Comment [Aut omated message] The Basophils) system which ge nerated this result tra nsmitted reference range : <=1.0. The reference r xu was not used to int erpret this result as normal/abnormal . [facility] HospitalOzoimpzYPRQWBKAAW0994-33-23 21:17:00 Test Item Value Reference Range Interpretation Comments Lymphocytes (test code = Lymphocytes) 23.7 20.0-40.0 [facility] HospitalMcxbjtzAGCZFAOXPG7170-38-06 21:17:00 Test Item Value Reference Range Interpretation Comments Monocytes (test code = Monocytes) 10.6 2.0-12.0 [facility] HospitalWuszfouKBEJXPKBZP6248-32-23 21:17:00 Test Item Value Reference Range Interpretation Comments Segs (test code = Segs) 65.4 45.0-75.0 [facility] AND [id number] 12:04:00 Test Item Value Reference Range Interpretation Comments UA Sq Epi (test code = UA Sq Epi) Few /LPF [facility] AND [id number] 12:04:00 Test Item Value Reference Range Interpretation Comments UA Leuk Est (test Negative (08/08/15 7:04 code = UA Leuk Est) AM) [facility] AND [id number] 12:04:00 Test Item Value Reference Range Interpretation Comments UA WBC (test code = 2 See_Comment [Automa yue message] The UA WBC) system which ge nerated this result transmit yue reference range : <=5. The reference range was not used to interpr et this result as wolf l/abnormal. [facility] AND [id number] 12:04:00 Test Item Value Reference Range Interpretation Comments UA Nitrite (test code Negative (08/08/15 7:04 = UA Nitrite) AM) [facility] AND [id number] 12:04:00 Test Item Value Reference Range Interpretation Comments UA Blood (test code = Negative (08/08/15 7:04 UA Blood) AM) [facility] AND [id number] 12:04:00 Test Item Value Reference Range Interpretation Comments UA Glucose (test code = UA Negative mg/dL Glucose) [facility] AND [id number] 12:04:00 Test Item Value Reference Range Interpretation Comments UA Bili (test code = Negative *NA*(08/08/15 UA Bili) 7:04 AM) [facility] AND [id number] 12:04:00 Test Item Value Reference Range Interpretation Comments UA Color (test code = UA Color) Straw [facility] AND [id number] 12:04:00 Test Item Value Reference Range Interpretation Comments UA Urobilinogen (test code = UA <=1.0 mg/dL 0.1-1.0 Urobilinogen) [facility] AND [id number] 12:04:00 Test Item Value Reference Range Interpretation Comments UA Ketones (test code = UA Ketones) Negative [facility] AND [id number] 12:04:00 Test Item Value Reference Range Interpretation Comments UA Bacteria (test code = UA Moderate /HPF Bacteria) [facility] AND [id number] 12:04:00 Test Item Value Reference Range Interpretation Comments UA RBC (test code = 1 See_Comment [Automa yue message] The UA RBC) system which ge nerated this result transmit yue reference range : <=2. The reference range was not used to interpr et this result as wolf l/abnormal. [facility] AND [id number] 12:04:00 Test Item Value Reference Range Interpretation Comments UA Mucus (test code = UA Mucus) Few /LPF [facility] AND [id number] 12:04:00 Test Item Value Reference Range Interpretation Comments UA Turbidity (test code = Clear (08/08/15 7:04 UA Turbidity) AM) [facility] AND [id number] 12:04:00 Test Item Value Reference Range Interpretation Comments UA Spec Grav (test code = UA Spec Grav) 1.004 [facility] AND [id number] 12:04:00 Test Item Value Reference Range Interpretation Comments UA pH (test code = UA pH) 6.0 5.0-8.0 [facility] AND [id number] 12:04:00 Test Item Value Reference Range Interpretation Comments UA Protein (test code = UA Negative mg/dL Protein) [facility] AND [id number] 12:04:00 Test Item Value Reference Range Interpretation Comments UA Sq Epi (test code = UA Sq Epi) Few /LPF [facility] AND [id number] 12:04:00 Test Item Value Reference Range Interpretation Comments UA Leuk Est (test Negative (08/08/15 7:04 code = UA Leuk Est) AM) [facility] AND [id number] 12:04:00 Test Item Value Reference Range Interpretation Comments UA WBC (test code = 2 See_Comment [Automa yue message] The UA WBC) system which ge nerated this result transmit yue reference range : <=5. The reference range was not used to interpr et this result as wolf l/abnormal. [facility] AND [id number] 12:04:00 Test Item Value Reference Range Interpretation Comments UA Nitrite (test code Negative (08/08/15 7:04 = UA Nitrite) AM) [facility] AND [id number] 12:04:00 Test Item Value Reference Range Interpretation Comments UA Blood (test code = Negative (08/08/15 7:04 UA Blood) AM) [facility] AND [id number] 12:04:00 Test Item Value Reference Range Interpretation Comments UA Glucose (test code = UA Negative mg/dL Glucose) [facility] AND [id number] 12:04:00 Test Item Value Reference Range Interpretation Comments UA Bili (test code = Negative *NA*(08/08/15 UA Bili) 7:04 AM) [facility] AND [id number] 12:04:00 Test Item Value Reference Range Interpretation Comments UA Color (test code = UA Color) Straw [facility] AND [id number] 12:04:00 Test Item Value Reference Range Interpretation Comments UA Urobilinogen (test code = UA <=1.0 mg/dL 0.1-1.0 Urobilinogen) [facility] AND [id number] 12:04:00 Test Item Value Reference Range Interpretation Comments UA Ketones (test code = UA Ketones) Negative [facility] AND [id number] 12:04:00 Test Item Value Reference Range Interpretation Comments UA Bacteria (test code = UA Moderate /HPF Bacteria) [facility] AND [id number] 12:04:00 Test Item Value Reference Range Interpretation Comments UA RBC (test code = 1 See_Comment [Automa yue message] The UA RBC) system which ge nerated this result transmit yue reference range : <=2. The reference range was not used to interpr et this result as wolf l/abnormal. [facility] AND [id number] 12:04:00 Test Item Value Reference Range Interpretation Comments UA Mucus (test code = UA Mucus) Few /LPF [facility] AND [id number] 12:04:00 Test Item Value Reference Range Interpretation Comments UA Turbidity (test code = Clear (08/08/15 7:04 UA Turbidity) AM) [facility] AND [id number] 12:04:00 Test Item Value Reference Range Interpretation Comments UA Spec Grav (test code = UA Spec Grav) 1.004 [facility] AND [id number] 12:04:00 Test Item Value Reference Range Interpretation Comments UA pH (test code = UA pH) 6.0 5.0-8.0 [facility] AND [id number] 12:04:00 Test Item Value Reference Range Interpretation Comments UA Protein (test code = UA Negative mg/dL Protein) [facility]2016-03-31 09:41:00 Test Item Value Reference Range Interpretation Comments Magnesium Lvl (test code = Magnesium 2.1 1.8-2.4 Lvl) [facility]2016-03-31 09:41:00 Test Item Value Reference Range Interpretation Comments eGFR (test code = eGFR) 47 [facility]2016-03-31 09:41:00 Test Item Value Reference Range Interpretation Comments Calcium Lvl (test code = Calcium Lvl) 8.3 8.5-10.5 [facility]2016-03-31 09:41:00 Test Item Value Reference Range Interpretation Comments AGAP (test code = AGAP) 13.1 10.0-20.0 [facility]2016-03-31 09:41:00 Test Item Value Reference Range Interpretation Comments Potassium Lvl (test code = Potassium 3.1 3.5-5.1 Lvl) [facility]2016-03-31 09:41:00 Test Item Value Reference Range Interpretation Comments Chloride Lvl (test code = Chloride Lvl) 112 95-109 [facility]2016-03-31 09:41:00 Test Item Value Reference Range Interpretation Comments CO2 (test code = CO2) 24-32 [facility]2016-03-31 09:41:00 Test Item Value Reference Range Interpretation Comments Sodium Lvl (test code = Sodium Lvl) 148 135-145 [facility]2016-03-31 09:41:00 Test Item Value Reference Range Interpretation Comments Creatinine Lvl (test code = Creatinine 1.31 0.50-1.40 Lvl) [facility]2016-03-31 09:41:00 Test Item Value Reference Range Interpretation Comments BUN (test code = BUN) 12 7-22 [facility]2016-03-31 09:41:00 Test Item Value Reference Range Interpretation Comments Glucose Lvl (test code = Glucose Lvl) 71 70-99 [facility] HospitalIfypauzYXMSKYTGDF1829-21-96 09:41:00 Test Item Value Reference Range Interpretation Comments MCV (test code = MCV) 86.3 80.0-98.0 [facility] HospitalGpuqrnhGESXULJZNW6217-13-23 09:41:00 Test Item Value Reference Range Interpretation Comments MPV (test code = MPV) 9.0 7.4-10.4 [facility] HospitalZdnqbehVFOHSQLDOY1510-15-69 09:41:00 Test Item Value Reference Range Interpretation Comments Platelet (test code = Platelet) 114 133-450 [facility] HospitalVpqfoasLBFULCKWKG8256-64-43 09:41:00 Test Item Value Reference Range Interpretation Comments RDW (test code = RDW) 13.9 11.5-14.5 [place] 527796-03-31 09:41:00 Test Item Value Reference Range Interpretation Comments MCHC (test code = MCHC) 32.1 32.0-36.0 [facility] HospitalAxnmfziAHNGIJQQPP8559-79-79 09:41:00 Test Item Value Reference Range Interpretation Comments Hct (test code = Hct) 32.0 36.0-48.0 [facility] HospitalRgwxjsbDGZKPZWWKW9794-79-90 09:41:00 Test Item Value Reference Range Interpretation Comments MCH (test code = MCH) 27.7 pg 27.0-31.0 [facility] HospitalQunyplzZRIGYAXWTH4154-71-98 09:41:00 Test Item Value Reference Range Interpretation Comments WBC (test code = WBC) 3.7 3.7-10.4 [facility] HospitalAlyxidyOEOXTEJDDD9023-30-90 09:41:00 Test Item Value Reference Range Interpretation Comments Hgb (test code = Hgb) 10.3 12.0-16.0 [facility] HospitalNmcopwlQJLAAIRIEA7203-33-89 09:41:00 Test Item Value Reference Range Interpretation Comments RBC (test code = RBC) 3.70 4.20-5.40 [facility] HospitalUxtezgoXJLUFCRBCB2283-55-45 09:41:00 Test Item Value Reference Range Interpretation Comments Segs (test code = Segs) 33.0 45.0-75.0 [facility] HospitalYyqmchwSPLQIFPBLX5024-35-49 09:41:00 Test Item Value Reference Range Interpretation Comments Bands (test code = 0.0 See_Comment [Automat ed message] The Bands) system which ge nerated this result transmit yue reference range : <=11.0. The reference r xu was not used to interpr et this result as wolf l/abnormal. [facility] HospitalZnaerwlNRAHUSJXMA7537-91-55 09:41:00 Test Item Value Reference Range Interpretation Comments Lymphocytes (test code = Lymphocytes) 61.0 20.0-40.0 [facility] HospitalLfynguhNXGMEADWCX9552-84-13 09:41:00 Test Item Value Reference Range Interpretation Comments Monocytes (test code = Monocytes) 5.0 2.0-12.0 [facility] HospitalUozjatlZPKWXUTAOX1330-27-02 09:41:00 Test Item Value Reference Range Interpretation Comments Plt Morph (test code = Normal (08/08/15 4:41 Plt Morph) AM) [facility] HospitalPdojvhwLXIAOGEJSO6911-22-76 09:41:00 Test Item Value Reference Range Interpretation Comments RBC Morph (test code = Normal (08/08/15 4:41 RBC Morph) AM) [facility] HospitalXajpvxdMWHKPLBCND3849-54-79 09:41:00 Test Item Value Reference Range Interpretation Comments Myelocytes (test code = Myelocytes) 1.0 [facility] HospitalMfdxvqhBCKPYAPXAY8323-01-41 09:41:00 Test Item Value Reference Range Interpretation Comments Atypical Lymphs (test code = Atypical 0.0 Lymphs) [facility] HospitalEyktsmiEMDWTWCQXL5331-68-25 09:41:00 Test Item Value Reference Range Interpretation Comments Monocytes # (test code 0.2 See_Comment [Aut omated message] The = Monocytes #) system which generated this result tra nsmitted reference range : <=0.8. The reference r xu was not used to int erpret this result as normal/abnormal . [place] 527796-03-31 09:41:00 Test Item Value Reference Range Interpretation Comments Segs-Bands # (test code = Segs-Bands #) 1.2 1.5-8.1 [facility] HospitalHrlvnnjNFJTRTNCEO4655-77-47 09:41:00 Test Item Value Reference Range Interpretation Comments Lymphocytes # (test code = Lymphocytes 2.3 1.0-5.5 #) [facility]VvipsleXRAOUA9195-50-89 09:41:00 Test Item Value Reference Range Interpretation Comments CHD Risk (test code = CHD Risk) 3.06 3.90-5.80 [place] [address]-03-31 09:41:00 Test Item Value Reference Range Interpretation Comments LDL (Calculated) (test code = LDL 31 (Calculated)) [place] [address]-03-31 09:41:00 Test Item Value Reference Range Interpretation Comments HDL (test code = HDL) 31 [facility] CenterGzqcnhwYTJVJF7166-20-40 09:41:00 Test Item Value Reference Range Interpretation Comments Chol (test code = Chol) 95 [facility] CenterSviwsbkYHYTKW2721-67-53 09:41:00 Test Item Value Reference Range Interpretation Comments Trig (test code = Trig) 165 [facility] CenterVfijmtoZJOOKQ6390-53-90 09:41:00 Test Item Value Reference Range Interpretation Comments VLDL (test code = VLDL) 33 [facility]2016-03-31 09:41:00 Test Item Value Reference Range Interpretation Comments Magnesium Lvl (test code = Magnesium 2.1 1.8-2.4 Lvl) [facility]2016-03-31 09:41:00 Test Item Value Reference Range Interpretation Comments eGFR (test code = eGFR) 47 [facility]2016-03-31 09:41:00 Test Item Value Reference Range Interpretation Comments Calcium Lvl (test code = Calcium Lvl) 8.3 8.5-10.5 [facility]2016-03-31 09:41:00 Test Item Value Reference Range Interpretation Comments AGAP (test code = AGAP) 13.1 10.0-20.0 [facility]2016-03-31 09:41:00 Test Item Value Reference Range Interpretation Comments Potassium Lvl (test code = Potassium 3.1 3.5-5.1 Lvl) [place] 496656-03-31 09:41:00 Test Item Value Reference Range Interpretation Comments Chloride Lvl (test code = Chloride Lvl) 112 95-109 [facility]2016-03-31 09:41:00 Test Item Value Reference Range Interpretation Comments CO2 (test code = CO2) 26 24-32 [place] 496656-03-31 09:41:00 Test Item Value Reference Range Interpretation Comments Sodium Lvl (test code = Sodium Lvl) 148 135-145 [place] 496656-03-31 09:41:00 Test Item Value Reference Range Interpretation Comments Creatinine Lvl (test code = Creatinine 1.31 0.50-1.40 Lvl) [facility]2016-03-31 09:41:00 Test Item Value Reference Range Interpretation Comments BUN (test code = BUN) 12 7-22 [facility]2016-03-31 09:41:00 Test Item Value Reference Range Interpretation Comments Glucose Lvl (test code = Glucose Lvl) 71 70-99 [facility] HospitalLftoivgGUZKSUHMCF1602-49-73 09:41:00 Test Item Value Reference Range Interpretation Comments MCV (test code = MCV) 86.3 80.0-98.0 [place] 527796-03-31 09:41:00 Test Item Value Reference Range Interpretation Comments MPV (test code = MPV) 9.0 7.4-10.4 [place] 527796-03-31 09:41:00 Test Item Value Reference Range Interpretation Comments Platelet (test code = Platelet) 114 133-450 [facility] HospitalAoyfyhxRUAUGIQRRZ2665-24-84 09:41:00 Test Item Value Reference Range Interpretation Comments RDW (test code = RDW) 13.9 11.5-14.5 [place] 527796-03-31 09:41:00 Test Item Value Reference Range Interpretation Comments MCHC (test code = MCHC) 32.1 32.0-36.0 [facility] HospitalQfdolgtCSMOJGPNIN8471-72-36 09:41:00 Test Item Value Reference Range Interpretation Comments Hct (test code = Hct) 32.0 36.0-48.0 [facility] HospitalBufagsfVGVOXRWBEP1000-55-44 09:41:00 Test Item Value Reference Range Interpretation Comments MCH (test code = MCH) 27.7 pg 27.0-31.0 [facility] HospitalHcoaqbsFFUPNTMLKB9069-14-65 09:41:00 Test Item Value Reference Range Interpretation Comments WBC (test code = WBC) 3.7 3.7-10.4 [facility]rc[facility]RML[facility]YRDV3637-38-49 09:41:00 Test Item Value Reference Range Interpretation Comments Hgb (test code = Hgb) 10.3 12.0-16.0 [facility]CnyaizmEHGQBVBNPZ1468-75-64 09:41:00 Test Item Value Reference Range Interpretation Comments RBC (test code = RBC) 3.70 4.20-5.40 [facility]KalynnlYIPHBPYOJX9826-61-11 09:41:00 Test Item Value Reference Range Interpretation Comments Segs (test code = Segs) 33.0 45.0-75.0 [facility]QggefzxBRKQAZVRMF8935-71-51 09:41:00 Test Item Value Reference Range Interpretation Comments Bands (test code = 0.0 See_Comment [Automat ed message] The Bands) system which ge nerated this result transmit yue reference range : <=11.0. The reference r xu was not used to interpr et this result as wolf l/abnormal. [facility] HospitalHutyzmoMIVYADMRBU4963-37-74 09:41:00 Test Item Value Reference Range Interpretation Comments Lymphocytes (test code = Lymphocytes) 61.0 20.0-40.0 [facility] HospitalGvomjvgHNGPOZIIIX2198-85-92 09:41:00 Test Item Value Reference Range Interpretation Comments Monocytes (test code = Monocytes) 5.0 2.0-12.0 [facility] HospitalQmmtizrMZJWJIKFSQ6356-83-79 09:41:00 Test Item Value Reference Range Interpretation Comments Plt Morph (test code = Normal (08/08/15 4:41 Plt Morph) AM) [facility]PmnglpfNHRRYIFSLX8888-39-23 09:41:00 Test Item Value Reference Range Interpretation Comments RBC Morph (test code = Normal (08/08/15 4:41 RBC Morph) AM) [facility] HospitalTwfbiviCKVNUOJZRW0402-57-06 09:41:00 Test Item Value Reference Range Interpretation Comments Myelocytes (test code = Myelocytes) 1.0 [facility] HospitalSjerjvjWTPJUJDWTC8931-35-27 09:41:00 Test Item Value Reference Range Interpretation Comments Atypical Lymphs (test code = Atypical 0.0 Lymphs) [facility] HospitalEqskxpvNCGGDQILKW2511-17-05 09:41:00 Test Item Value Reference Range Interpretation Comments Monocytes # (test code 0.2 See_Comment [Aut omated message] The = Monocytes #) system which generated this result tra nsmitted reference range : <=0.8. The reference r xu was not used to int erpret this result as normal/abnormal . [facility] HospitalDqrhcviROEUPGNNNV5571-30-80 09:41:00 Test Item Value Reference Range Interpretation Comments Segs-Bands # (test code = Segs-Bands #) 1.2 1.5-8.1 [facility] HospitalMrovzrhQVPDUQDRTE8175-64-52 09:41:00 Test Item Value Reference Range Interpretation Comments Lymphocytes # (test code = Lymphocytes 2.3 1.0-5.5 #) [facility]TirxxhjNWXUOP6113-13-83 09:41:00 Test Item Value Reference Range Interpretation Comments CHD Risk (test code = CHD Risk) 3.06 3.90-5.80 [facility] CenterXaolkepDVNIAK3551-95-26 09:41:00 Test Item Value Reference Range Interpretation Comments LDL (Calculated) (test code = LDL 31 (Calculated)) [facility] CenterOcpzivuUJHZBE4896-21-05 09:41:00 Test Item Value Reference Range Interpretation Comments HDL (test code = HDL) 31 [facility] CenterOzmpptpVHXKXR7176-18-42 09:41:00 Test Item Value Reference Range Interpretation Comments Chol (test code = Chol) 95 [facility] CenterRjcpdnjYOXZVX9180-11-23 09:41:00 Test Item Value Reference Range Interpretation Comments Trig (test code = Trig) 165 [facility] CenterGwsmqtwNBUPMW6725-30-60 09:41:00 Test Item Value Reference Range Interpretation Comments VLDL (test code = VLDL) 33 [facility] [id number] 03:22:00 Test Item Value Reference Range Interpretation Comments Creatinine Lvl (test code = Creatinine 1.42 0.50-1.40 Lvl) [facility] [id number] 03:22:00 Test Item Value Reference Range Interpretation Comments eGFR (test code = eGFR) 42 [facility] HospitalZmhccqcUOJNTQMRSD6005-92-27 03:22:00 Test Item Value Reference Range Interpretation Comments PTT (test code = PTT) 30.8 s 22.9-35.8 [facility] HospitalGxgpezdTMVDNGGHYV6302-76-14 03:22:00 Test Item Value Reference Range Interpretation Comments Platelet (test code = Platelet) 156 133-450 [facility] [id number] 03:22:00 Test Item Value Reference Range Interpretation Comments Hgb A1C (test code = Hgb A1C) 5.7 [facility] [id number] 03:22:00 Test Item Value Reference Range Interpretation Comments Creatinine Lvl (test code = Creatinine 1.42 0.50-1.40 Lvl) [facility] [id number] 03:22:00 Test Item Value Reference Range Interpretation Comments eGFR (test code = eGFR) 42 [facility]JqbvfczBNBQFBTIJX1565-99-91 03:22:00 Test Item Value Reference Range Interpretation Comments PTT (test code = PTT) 30.8 s 22.9-35.8 [facility] HospitalErnqeikAZTNQRBZZX3037-92-90 03:22:00 Test Item Value Reference Range Interpretation Comments Platelet (test code = Platelet) 156 133-450 [facility] [id number] 03:22:00 Test Item Value Reference Range Interpretation Comments Hgb A1C (test code = Hgb A1C) 5.7 [facility] AND [id number] 22:01:00 Test Item Value Reference Range Interpretation Comments UA RBC (test code = 1 See_Comment [Automa yue message] The UA RBC) system which ge nerated this result transmit yue reference range : <=2. The reference range was not used to interpr et this result as wolf l/abnormal. [facility] AND [id number] 22:01:00 Test Item Value Reference Range Interpretation Comments UA Sq Epi (test code = UA Sq Moderate /LPF Epi) [facility] AND [id number] 22:01:00 Test Item Value Reference Range Interpretation Comments UA WBC (test code = 5 See_Comment [Automa yue message] The UA WBC) system which ge nerated this result transmit yue reference range : <=5. The reference range was not used to interpr et this result as wolf l/abnormal. [facility] AND [id number] 22:01:00 Test Item Value Reference Range Interpretation Comments UA Hyal Cast (test 5 See_Comment [Automat ed message] The code = UA Hyal Cast) system which generated this result transmit yue reference range : <=2. The reference range was not used to interpr et this result as wolf l/abnormal. [facility] AND [id number] 22:01:00 Test Item Value Reference Range Interpretation Comments UA Mucus (test code = UA Mucus) Many /LPF [facility] AND [id number] 22:01:00 Test Item Value Reference Range Interpretation Comments UA Bacteria (test code = UA Occasional /HPF Bacteria) [facility] AND [id number] 22:01:00 Test Item Value Reference Range Interpretation Comments UA Ketones (test code = UA Ketones) Negative [facility] AND [id number] 22:01:00 Test Item Value Reference Range Interpretation Comments UA Urobilinogen (test code = UA <=1.0 mg/dL 0.1-1.0 Urobilinogen) [facility] AND [id number] 22:01:00 Test Item Value Reference Range Interpretation Comments UA pH (test code = UA pH) 5.0 5.0-8.0 [facility] AND [id number] 22:01:00 Test Item Value Reference Range Interpretation Comments UA Protein (test code = UA Protein) 30 mg/dL [facility] AND [id number] 22:01:00 Test Item Value Reference Range Interpretation Comments UA Turbidity (test code Slight *ABN*(08/07/15 = UA Turbidity) 5:01 PM) [facility] AND [id number] 22:01:00 Test Item Value Reference Range Interpretation Comments UA Spec Grav (test code = UA Spec Grav) 1.019 [facility] AND [id number] 22:01:00 Test Item Value Reference Range Interpretation Comments UA Color (test code = Dark Yellow UA Color) *NA*(08/07/15 5:01 PM) [facility] AND [id number] 22:01:00 Test Item Value Reference Range Interpretation Comments UA Glucose (test code = UA Negative mg/dL Glucose) [facility] AND [id number] 22:01:00 Test Item Value Reference Range Interpretation Comments UA Blood (test code = Negative (08/07/15 5:01 UA Blood) PM) [facility] AND [id number] 22:01:00 Test Item Value Reference Range Interpretation Comments UA Bili (test code = Negative *NA*(08/07/15 UA Bili) 5:01 PM) [facility] AND [id number] 22:01:00 Test Item Value Reference Range Interpretation Comments UA Nitrite (test code Negative (08/07/15 5:01 = UA Nitrite) PM) [facility] AND [id number] 22:01:00 Test Item Value Reference Range Interpretation Comments UA Leuk Est (test Negative (08/07/15 5:01 code = UA Leuk Est) PM) [facility] AND [id number] 22:01:00 Test Item Value Reference Range Interpretation Comments UA RBC (test code = 1 See_Comment [Automa yue message] The UA RBC) system which ge nerated this result transmit yue reference range : <=2. The reference range was not used to interpr et this result as wolf l/abnormal. [facility] AND [id number] 22:01:00 Test Item Value Reference Range Interpretation Comments UA Sq Epi (test code = UA Sq Moderate /LPF Epi) [facility] AND [id number] 22:01:00 Test Item Value Reference Range Interpretation Comments UA WBC (test code = 5 See_Comment [Automa yue message] The UA WBC) system which ge nerated this result transmit yue reference range : <=5. The reference range was not used to interpr et this result as wolf l/abnormal. [facility] AND [id number] 22:01:00 Test Item Value Reference Range Interpretation Comments UA Hyal Cast (test 5 See_Comment [Automat ed message] The code = UA Hyal Cast) system which generated this result transmit yue reference range : <=2. The reference range was not used to interpr et this result as wolf l/abnormal. [facility] AND [id number] 22:01:00 Test Item Value Reference Range Interpretation Comments UA Mucus (test code = UA Mucus) Many /LPF [facility] AND [id number] 22:01:00 Test Item Value Reference Range Interpretation Comments UA Bacteria (test code = UA Occasional /HPF Bacteria) [facility] AND [id number] 22:01:00 Test Item Value Reference Range Interpretation Comments UA Ketones (test code = UA Ketones) Negative [facility] [id number] 22:01:00 Test Item Value Reference Range Interpretation Comments UA Urobilinogen (test code = UA <=1.0 mg/dL 0.1-1.0 Urobilinogen) [facility] AND [id number] 22:01:00 Test Item Value Reference Range Interpretation Comments UA pH (test code = UA pH) 5.0 5.0-8.0 [facility] AND [id number] 22:01:00 Test Item Value Reference Range Interpretation Comments UA Protein (test code = UA Protein) 30 mg/dL [facility] AND [id number] 22:01:00 Test Item Value Reference Range Interpretation Comments UA Turbidity (test code Slight *ABN*(08/07/15 = UA Turbidity) 5:01 PM) [facility] AND [id number] 22:01:00 Test Item Value Reference Range Interpretation Comments UA Spec Grav (test code = UA Spec Grav) 1.019 [facility] AND [id number] 22:01:00 Test Item Value Reference Range Interpretation Comments UA Color (test code = Dark Yellow UA Color) *NA*(08/07/15 5:01 PM) [facility] AND [id number] 22:01:00 Test Item Value Reference Range Interpretation Comments UA Glucose (test code = UA Negative mg/dL Glucose) [facility] AND [id number] 22:01:00 Test Item Value Reference Range Interpretation Comments UA Blood (test code = Negative (08/07/15 5:01 UA Blood) PM) [facility] AND [id number] 22:01:00 Test Item Value Reference Range Interpretation Comments UA Bili (test code = Negative *NA*(08/07/15 UA Bili) 5:01 PM) [facility] AND [id number] 22:01:00 Test Item Value Reference Range Interpretation Comments UA Nitrite (test code Negative (08/07/15 5:01 = UA Nitrite) PM) [facility] AND [id number] 22:01:00 Test Item Value Reference Range Interpretation Comments UA Leuk Est (test Negative (08/07/15 5:01 code = UA Leuk Est) PM) [facility]2016-03-30 21:02:00 Test Item Value Reference Range Interpretation Comments B/C Ratio (test code = B/C Ratio) 9 6-25 [place] 496656-03-30 21:02:00 Test Item Value Reference Range Interpretation Comments A/G Ratio (test code = A/G Ratio) 1.2 0.7-1.6 [place] 496656-03-30 21:02:00 Test Item Value Reference Range Interpretation Comments Globulin (test code = Globulin) 3.7 2.0-4.0 [place] 496656-03-30 21:02:00 Test Item Value Reference Range Interpretation Comments AGAP (test code = AGAP) 15.1 10.0-20.0 [place] 496656-03-30 21:02:00 Test Item Value Reference Range Interpretation Comments eGFR (test code = eGFR) 33 [facility]2016-03-30 21:02:00 Test Item Value Reference Range Interpretation Comments ALT (test code = ALT) 24 See_Comment [Auto mated message] The system which ge nerated this result transmit yue reference range : <=65. The reference range was not used to interpr et this result as wolf l/abnormal. [facility]2016-03-30 21:02:00 Test Item Value Reference Range Interpretation Comments AST (test code = AST) 38 See_Comment [Auto mated message] The system which ge nerated this result transmit yue reference range : <=37. The reference range was not used to interpr et this result as wolf l/abnormal. [facility]2016-03-30 21:02:00 Test Item Value Reference Range Interpretation Comments Creatinine Lvl (test code = Creatinine 1.73 0.50-1.40 Lvl) [facility]2016-03-30 21:02:00 Test Item Value Reference Range Interpretation Comments Glucose Lvl (test code = Glucose Lvl) 104 70-99 [facility]2016-03-30 21:02:00 Test Item Value Reference Range Interpretation Comments BUN (test code = BUN) 15 7-22 [place] 496656-03-30 21:02:00 Test Item Value Reference Range Interpretation Comments Bili Total (test code = Bili Total) 0.3 0.2-1.3 [facility]2016-03-30 21:02:00 Test Item Value Reference Range Interpretation Comments Total Protein (test code = Total 8.0 6.4-8.4 Protein) [facility]2016-03-30 21:02:00 Test Item Value Reference Range Interpretation Comments Alk Phos (test code = Alk Phos) 83 39-136 [facility]2016-03-30 21:02:00 Test Item Value Reference Range Interpretation Comments Potassium Lvl (test code = Potassium 3.1 3.5-5.1 Lvl) [facility]2016-03-30 21:02:00 Test Item Value Reference Range Interpretation Comments Sodium Lvl (test code = Sodium Lvl) 143 135-145 [facility]2016-03-30 21:02:00 Test Item Value Reference Range Interpretation Comments CO2 (test code = CO2) 30 24-32 [facility]2016-03-30 21:02:00 Test Item Value Reference Range Interpretation Comments Chloride Lvl (test code = Chloride Lvl) 101 95-109 [facility]2016-03-30 21:02:00 Test Item Value Reference Range Interpretation Comments Calcium Lvl (test code = Calcium Lvl) 9.5 8.5-10.5 [facility]2016-03-30 21:02:00 Test Item Value Reference Range Interpretation Comments Albumin Lvl (test code = Albumin Lvl) 4.3 3.5-5.0 [id number] 21:02:00 Test Item Value Reference Range Interpretation Comments Monocytes # (test code 0.7 See_Comment [Aut omated message] The = Monocytes #) system which generated this result tra nsmitted reference range : <=0.8. The reference r xu was not used to int erpret this result as normal/abnormal . [facility] Hospit[id number] 21:02:00 Test Item Value Reference Range Interpretation Comments Eosinophils # (test code 0.0 See_Comment [A utomated message] The = Eosinophils #) system whic h generated this result tra nsmitted reference range : <=0.5. The reference r xu was not used to int erpret this result as normal/abnormal . [facility] HospitalWkzvezqJIXGQKJDSL9395-06-81 21:02:00 Test Item Value Reference Range Interpretation Comments Lymphocytes (test code = Lymphocytes) 28.2 20.0-40.0 [facility] HospitalLatqpvoAJDXLWDANS2990-70-55 21:02:00 Test Item Value Reference Range Interpretation Comments Segs (test code = Segs) 62.2 45.0-75.0 [facility] HospitalAhytupeZEOUKKVLTT2070-96-30 21:02:00 Test Item Value Reference Range Interpretation Comments Monocytes (test code = Monocytes) 9.3 2.0-12.0 [facility] HospitalPswowvwKXJRSDWSKY5838-20-66 21:02:00 Test Item Value Reference Range Interpretation Comments Lymphocytes # (test code = Lymphocytes 2.2 1.0-5.5 #) [facility] HospitalOvqtpkaHDRSDOXSHH8829-96-79 21:02:00 Test Item Value Reference Range Interpretation Comments Eosinophils (test code = 0.0 See_Comment [A utomated message] The Eosinophils) system which nerated this result tra nsmitted reference range : <=4.0. The reference r xu was not used to int erpret this result as normal/abnormal . [facility] HospitalOcpzjraCTTIPOXZST4948-76-02 21:02:00 Test Item Value Reference Range Interpretation Comments Basophils (test code = 0.3 See_Comment [Aut omated message] The Basophils) system which ge nerated this result tra nsmitted reference range : <=1.0. The reference r xu was not used to int erpret this result as normal/abnormal . [facility] HospitalLxdctcfZIXZRBQEHJ0486-18-80 21:02:00 Test Item Value Reference Range Interpretation Comments Segs-Bands # (test code = Segs-Bands #) 4.9 1.5-8.1 [facility] HospitalMllcpujCYGPMNEAUM1153-17-26 21:02:00 Test Item Value Reference Range Interpretation Comments Hgb (test code = Hgb) 13.4 12.0-16.0 [facility] HospitalQzqxyxbHHRWRYRPYW1464-72-23 21:02:00 Test Item Value Reference Range Interpretation Comments MCH (test code = MCH) 28.0 pg 27.0-31.0 [facility] HospitalTtwqxguHVNCBGXPMI5918-70-10 21:02:00 Test Item Value Reference Range Interpretation Comments Hct (test code = Hct) 41.0 36.0-48.0 [facility] HospitalXgrzgqvDMKHVHFYYI3902-29-33 21:02:00 Test Item Value Reference Range Interpretation Comments MCV (test code = MCV) 85.6 80.0-98.0 [facility] HospitalXktnpxvYHLINPSDIW9024-25-43 21:02:00 Test Item Value Reference Range Interpretation Comments RDW (test code = RDW) 13.6 11.5-14.5 [facility] HospitalFiralnxQCFHFPYXQE5184-38-20 21:02:00 Test Item Value Reference Range Interpretation Comments Platelet (test code = Platelet) 198 133-450 [facility] HospitalNoostfoLGOXLZTHYH9350-41-86 21:02:00 Test Item Value Reference Range Interpretation Comments MCHC (test code = MCHC) 32.6 32.0-36.0 [facility] HospitalSoufuneQNTIUBHLWP1204-87-65 21:02:00 Test Item Value Reference Range Interpretation Comments MPV (test code = MPV) 8.5 7.4-10.4 [facility] HospitalFxlrwuiLENMIZXZOR9705-11-80 21:02:00 Test Item Value Reference Range Interpretation Comments WBC (test code = WBC) 7.9 3.7-10.4 [facility] HospitalIrdnpgzCDQTFGUZXN6371-59-61 21:02:00 Test Item Value Reference Range Interpretation Comments RBC (test code = RBC) 4.78 4.20-5.40 [facility]2016-03-30 21:02:00 Test Item Value Reference Range Interpretation Comments B/C Ratio (test code = B/C Ratio) 9 6-25 [facility]2016-03-30 21:02:00 Test Item Value Reference Range Interpretation Comments A/G Ratio (test code = A/G Ratio) 1.2 0.7-1.6 [facility]2016-03-30 21:02:00 Test Item Value Reference Range Interpretation Comments Globulin (test code = Globulin) 3.7 2.0-4.0 [facility]2016-03-30 21:02:00 Test Item Value Reference Range Interpretation Comments AGAP (test code = AGAP) 15.1 10.0-20.0 [facility]2016-03-30 21:02:00 Test Item Value Reference Range Interpretation Comments eGFR (test code = eGFR) 33 [facility]2016-03-30 21:02:00 Test Item Value Reference Range Interpretation Comments ALT (test code = ALT) 24 See_Comment [Auto mated message] The system which ge nerated this result transmit yue reference range : <=65. The reference range was not used to interpr et this result as wolf l/abnormal. [facility]2016-03-30 21:02:00 Test Item Value Reference Range Interpretation Comments AST (test code = AST) 38 See_Comment [Auto mated message] The system which ge nerated this result transmit yue reference range : <=37. The reference range was not used to interpr et this result as wolf l/abnormal. [facility]2016-03-30 21:02:00 Test Item Value Reference Range Interpretation Comments Creatinine Lvl (test code = Creatinine 1.73 0.50-1.40 Lvl) [place] 496656-03-30 21:02:00 Test Item Value Reference Range Interpretation Comments Glucose Lvl (test code = Glucose Lvl) 104 70-99 [place] 496656-03-30 21:02:00 Test Item Value Reference Range Interpretation Comments BUN (test code = BUN) 15 7-22 [facility]2016-03-30 21:02:00 Test Item Value Reference Range Interpretation Comments Bili Total (test code = Bili Total) 0.3 0.2-1.3 [facility]2016-03-30 21:02:00 Test Item Value Reference Range Interpretation Comments Total Protein (test code = Total 8.0 6.4-8.4 Protein) [facility]2016-03-30 21:02:00 Test Item Value Reference Range Interpretation Comments Alk Phos (test code = Alk Phos) 83 39-136 [facility]2016-03-30 21:02:00 Test Item Value Reference Range Interpretation Comments Potassium Lvl (test code = Potassium 3.1 3.5-5.1 Lvl) [facility]2016-03-30 21:02:00 Test Item Value Reference Range Interpretation Comments Sodium Lvl (test code = Sodium Lvl) 143 135-145 [facility]2016-03-30 21:02:00 Test Item Value Reference Range Interpretation Comments CO2 (test code = CO2) 30 24-32 [place] 496656-03-30 21:02:00 Test Item Value Reference Range Interpretation Comments Chloride Lvl (test code = Chloride Lvl) 101 95-109 [facility]2016-03-30 21:02:00 Test Item Value Reference Range Interpretation Comments Calcium Lvl (test code = Calcium Lvl) 9.5 8.5-10.5 [facility]2016-03-30 21:02:00 Test Item Value Reference Range Interpretation Comments Albumin Lvl (test code = Albumin Lvl) 4.3 3.5-5.0 [facility] HospitalBuklqwvTAAFWMDJGG2372-44-80 21:02:00 Test Item Value Reference Range Interpretation Comments Monocytes # (test code 0.7 See_Comment [Aut omated message] The = Monocytes #) system which generated this result tra nsmitted reference range : <=0.8. The reference r xu was not used to int erpret this result as normal/abnormal . [facility] HospitalHnmdovsEHVOTFDYBR1428-13-26 21:02:00 Test Item Value Reference Range Interpretation Comments Eosinophils # (test code 0.0 See_Comment [A utomated message] The = Eosinophils #) system whic h generated this result tra nsmitted reference range : <=0.5. The reference r xu was not used to int erpret this result as normal/abnormal . [facility] HospitalJbmzjcyDKPFUXFOXD4592-31-92 21:02:00 Test Item Value Reference Range Interpretation Comments Lymphocytes (test code = Lymphocytes) 28.2 20.0-40.0 [facility] HospitalNyuglmfTERWMUMEDP7572-67-07 21:02:00 Test Item Value Reference Range Interpretation Comments Segs (test code = Segs) 62.2 45.0-75.0 [facility] HospitalPlgpgjiOXPTFGVDZB1293-06-53 21:02:00 Test Item Value Reference Range Interpretation Comments Monocytes (test code = Monocytes) 9.3 2.0-12.0 [facility] HospitalWdjuanaWAJDXHNAGT7382-68-56 21:02:00 Test Item Value Reference Range Interpretation Comments Lymphocytes # (test code = Lymphocytes 2.2 1.0-5.5 #) [facility]YymtbknVCOOPZUKQB9738-56-65 21:02:00 Test Item Value Reference Range Interpretation Comments Eosinophils (test code = 0.0 See_Comment [A utomated message] The Eosinophils) system which ge nerated this result tra nsmitted reference range : <=4.0. The reference r xu was not used to int erpret this result as normal/abnormal . [facility]HzruvdiQMIVFTMBJB2620-69-13 21:02:00 Test Item Value Reference Range Interpretation Comments Basophils (test code = 0.3 See_Comment [Aut omated message] The Basophils) system which ge nerated this result tra nsmitted reference range : <=1.0. The reference r xu was not used to int erpret this result as normal/abnormal . [facility] HospitalGswdajkKUCYNWDLLR0175-43-11 21:02:00 Test Item Value Reference Range Interpretation Comments Segs-Bands # (test code = Segs-Bands #) 4.9 1.5-8.1 [facility]WrdkgdeIWIHJBUNCQ9787-38-42 21:02:00 Test Item Value Reference Range Interpretation Comments Hgb (test code = Hgb) 13.4 12.0-16.0 [facility] HospitalIutjltdULHAGMNIEK3831-45-16 21:02:00 Test Item Value Reference Range Interpretation Comments MCH (test code = MCH) 28.0 pg 27.0-31.0 [facility] HospitalPssgptmHDSOGABMSD4233-69-39 21:02:00 Test Item Value Reference Range Interpretation Comments Hct (test code = Hct) 41.0 36.0-48.0 [facility] HospitalUozrnjcNYJCJFYTCY3552-64-01 21:02:00 Test Item Value Reference Range Interpretation Comments MCV (test code = MCV) 85.6 80.0-98.0 [facility] HospitalDaxblxdOJOKOEIWRY5714-46-09 21:02:00 Test Item Value Reference Range Interpretation Comments RDW (test code = RDW) 13.6 11.5-14.5 [facility] HospitalTcyvzcgGNONEIVLDD5081-53-98 21:02:00 Test Item Value Reference Range Interpretation Comments Platelet (test code = Platelet) 198 133-450 [facility] HospitalSezpafqICILRGVBKL2301-95-00 21:02:00 Test Item Value Reference Range Interpretation Comments MCHC (test code = MCHC) 32.6 32.0-36.0 [facility] HospitalEuevghyXZXJJQYQJW6291-05-09 21:02:00 Test Item Value Reference Range Interpretation Comments MPV (test code = MPV) 8.5 7.4-10.4 [facility] HospitalUnjtyjdWWFGJETQAX8561-71-53 21:02:00 Test Item Value Reference Range Interpretation Comments WBC (test code = WBC) 7.9 3.7-10.4 [facility]od[facility]JLCU[facility]DMPY5339[facility]-26 21:02:00 Test Item Value Reference Range Interpretation Comments RBC (test code = RBC) 4.78 4.20-5.40 [facility] [id number] 20:18:00 Test Item Value Reference Range Interpretation Comments CK MB (test code = CK MB) no gt 0.5-3.6 [facility] HFYSUMP2321-56-01 20:18:00 Test Item Value Reference Range Interpretation Comments Total CK (test code = Total CK) 82 12191 [facility] [id number] 20:18:00 Test Item Value Reference Range Interpretation Comments Troponin-I (test code no gt See_Comment [Auto mated message] The = Troponin-I) system which g enerated this result transmit yue reference range : <=0.40. The reference r xu was not used to interpr et this result as wolf l/abnormal. [facility] [id number] 20:18:00 Test Item Value Reference Range Interpretation Comments CK MB (test code = CK MB) no gt 0.5-3.6 [facility] IARMJPT1641-10-17 20:18:00 Test Item Value Reference Range Interpretation Comments CK MB Index (test no gt See_Comment [Automate d message] The code = CK MB Index) system w [facility] generated this result transmit yue reference range : <=2.5. The reference range was not used to interpr et this result as wolf l/abnormal. [facility] [id number] 20:18:00 Test Item Value Reference Range Interpretation Comments CK MB (test code = CK MB) no gt 0.5-3.6 [facility] [id number] 20:18:00 Test Item Value Reference Range Interpretation Comments Total CK (test code = Total CK) 82 12191 [facility] DallasDataArtAC [id number] 20:18:00 Test Item Value Reference Range Interpretation Comments Troponin-I (test code no gt See_Comment [Auto mated message] The = Troponin-I) system which g enerated this result transmit yue reference range : <=0.40. The reference r xu was not used to interpr et this result as wolf l/abnormal. [facility] [employer]annCARDIAC ZDNXFJO3331-48-15 20:18:00 Test Item Value Reference Range Interpretation Comments CK MB (test code = CK MB) no gt 0.5-3.6 [facility] [id number] 20:18:00 Test Item Value Reference Range Interpretation Comments CK MB Index (test no gt See_Comment [Automate d message] The code = CK MB Index) system w [employer] generated this result transmit yue reference range : <=2.5. The reference range was not used to interpr et this result as wolf l/abnormal. [employer] UKFRQIO7879-26-66 22:18:00 Test Item Value Reference Range Interpretation Comments Troponin-I (test <0.015 ng/mL See_Comment [Automated message] The code = system which ge nerated Troponin-I) this result tra nsmitted reference range : <=0.40. The reference r xu was not used to int erpret this result as normal/abnormal . [employer] [id number] 22:18:00 Test Item Value Reference Range Interpretation Comments CK MB (test code = CK MB) <0.5 ng/mL 0.5-3.6 [facility] [employer].comannQuintilesDIAC [id number] 22:18:00 Test Item Value Reference Range Interpretation Comments Total CK (test code = Total CK) 33 12-191 [facility] [employer] [id number] 22:18:00 Test Item Value Reference Range Interpretation Comments CK MB Index (test no gt See_Comment [Automate d message] The code = CK MB Index) system [employer] generated this result transmit yue reference range : <=2.5. The reference range was not used to interpr et this result as wolf l/abnormal. [employer] [id number] 22:18:00 Test Item Value Reference Range Interpretation Comments eGFR (test code = eGFR) 43 [facility] [employer] [id number] 22:18:00 Test Item Value Reference Range Interpretation Comments AGAP (test code = AGAP) 14.1 10.0-20.0 [facility] [employer] [id number] 22:18:00 Test Item Value Reference Range Interpretation Comments Bili Total (test code = Bili Total) 0.5 0.2-1.3 [facility]2016-02-27 22:18:00 Test Item Value Reference Range Interpretation Comments B/C Ratio (test code = B/C Ratio) 12 6-25 [facility]2016-02-27 22:18:00 Test Item Value Reference Range Interpretation Comments Globulin (test code = Globulin) 4.0 2.0-4.0 [facility]2016-02-27 22:18:00 Test Item Value Reference Range Interpretation Comments A/G Ratio (test code = A/G Ratio) 1.0 0.7-1.6 [facility]2016-02-27 22:18:00 Test Item Value Reference Range Interpretation Comments Sodium Lvl (test code = Sodium Lvl) 139 135-145 [facility]2016-02-27 22:18:00 Test Item Value Reference Range Interpretation Comments Chloride Lvl (test code = Chloride Lvl) 102 95-109 [facility]2016-02-27 22:18:00 Test Item Value Reference Range Interpretation Comments Potassium Lvl (test code = Potassium 3.1 3.5-5.1 Lvl) [facility]2016-02-27 22:18:00 Test Item Value Reference Range Interpretation Comments Glucose Lvl (test code = Glucose Lvl) 112 70-99 [facility]2016-02-27 22:18:00 Test Item Value Reference Range Interpretation Comments Creatinine Lvl (test code = Creatinine 1.41 0.50-1.40 Lvl) [facility]2016-02-27 22:18:00 Test Item Value Reference Range Interpretation Comments BUN (test code = BUN) 17 7-22 [facility]2016-02-27 22:18:00 Test Item Value Reference Range Interpretation Comments Alk Phos (test code = Alk Phos) 78 39-136 [facility]2016-02-27 22:18:00 Test Item Value Reference Range Interpretation Comments Calcium Lvl (test code = Calcium Lvl) 9.4 8.5-10.5 [facility]2016-02-27 22:18:00 Test Item Value Reference Range Interpretation Comments CO2 (test code = CO2) 26 24-32 [facility]2016-02-27 22:18:00 Test Item Value Reference Range Interpretation Comments Total Protein (test code = Total 8.1 6.4-8.4 Protein) [facility]2016-02-27 22:18:00 Test Item Value Reference Range Interpretation Comments AST (test code = AST) 33 See_Comment [Auto mated message] The system which ge nerated this result transmit yue reference range : <=37. The reference range was not used to interpr et this result as wolf l/abnormal. [place] 496656-02-27 22:18:00 Test Item Value Reference Range Interpretation Comments ALT (test code = ALT) 20 See_Comment [Auto mated message] The system which ge nerated this result transmit yue reference range : <=65. The reference range was not used to interpr et this result as wolf l/abnormal. [facility]2016-02-27 22:18:00 Test Item Value Reference Range Interpretation Comments Albumin Lvl (test code = Albumin Lvl) 4.1 3.5-5.0 [place] 527796-02-27 22:18:00 Test Item Value Reference Range Interpretation Comments D-Dimer (test code = D-Dimer) 0.58 [place] [address]-02-27 22:18:00 Test Item Value Reference Range Interpretation Comments MPV (test code = MPV) 8.5 7.4-10.4 [place] 527796-02-27 22:18:00 Test Item Value Reference Range Interpretation Comments Platelet (test code = Platelet) 204 133-450 [facility] HospitalBipwgmeDLUOSBYCHS9399-78-71 22:18:00 Test Item Value Reference Range Interpretation Comments Hct (test code = Hct) 39.7 36.0-48.0 [place] [address]-02-27 22:18:00 Test Item Value Reference Range Interpretation Comments WBC (test code = WBC) 6.2 3.7-10.4 [place] [address]-02-27 22:18:00 Test Item Value Reference Range Interpretation Comments RBC (test code = RBC) 4.84 4.20-5.40 [place] [address]-02-27 22:18:00 Test Item Value Reference Range Interpretation Comments MCV (test code = MCV) 81.9 80.0-98.0 [place] [address]-02-27 22:18:00 Test Item Value Reference Range Interpretation Comments MCH (test code = MCH) 27.4 pg 27.0-31.0 [facility] HospitalFuaifylXHXXBEJFBQ1768-50-33 22:18:00 Test Item Value Reference Range Interpretation Comments MCHC (test code = MCHC) 33.5 32.0-36.0 [facility] HospitalZzdyczzAYRAITNGBZ0836-55-58 22:18:00 Test Item Value Reference Range Interpretation Comments RDW (test code = RDW) 13.3 11.5-14.5 [facility] HospitalRplcpivXPCOVLCKYH3591-66-90 22:18:00 Test Item Value Reference Range Interpretation Comments Hgb (test code = Hgb) 13.3 12.0-16.0 [facility] HospitalYqredniDEMVNIRZSR1285-13-09 22:18:00 Test Item Value Reference Range Interpretation Comments Lymphocytes # (test code = Lymphocytes 2.0 1.0-5.5 #) [facility] HospitalTxqotyhMCKDZHHNSG2870-81-11 22:18:00 Test Item Value Reference Range Interpretation Comments Monocytes # (test code 0.7 See_Comment [Aut omated message] The = Monocytes #) system which generated this result tra nsmitted reference range : <=0.8. The reference r xu was not used to int erpret this result as normal/abnormal . [facility] HospitalFowlxomWVJPVUYSLQ9343-44-87 22:18:00 Test Item Value Reference Range Interpretation Comments Segs (test code = Segs) 56.2 45.0-75.0 [facility] HospitalSrcrqatSNPHCFGKZB3381-01-49 22:18:00 Test Item Value Reference Range Interpretation Comments Lymphocytes (test code = Lymphocytes) 32.1 20.0-40.0 [facility] HospitalMbyfuzsGFLPGTTLME6494-27-66 22:18:00 Test Item Value Reference Range Interpretation Comments Monocytes (test code = Monocytes) 11.5 2.0-12.0 [facility] HospitalRnilvwrDTDBQARVHK4367-66-85 22:18:00 Test Item Value Reference Range Interpretation Comments Basophils (test code = 0.2 See_Comment [Aut omated message] The Basophils) system which ge nerated this result tra nsmitted reference range : <=1.0. The reference r xu was not used to int erpret this result as normal/abnormal . [facility] HospitalJkcermtKGGDFIXJGP4293-85-52 22:18:00 Test Item Value Reference Range Interpretation Comments Segs-Bands # (test code = Segs-Bands #) 3.5 1.5-8.1 [facility] [employer]CAR[employer]HealthAC EFOXRUO8825-88-00 22:18:00 Test Item Value Reference Range Interpretation Comments Troponin-I (test <0.015 ng/mL See_Comment [Automated message] The code = system which ge nerated Troponin-I) this result tra nsmitted reference range : <=0.40. The reference r xu was not used to int erpret this result as normal/abnormal . [facility] [employer] [id number] 22:18:00 Test Item Value Reference Range Interpretation Comments CK MB (test code = CK MB) <0.5 ng/mL 0.5-3.6 [facility] 22:18:00 Test Item Value Reference Range Interpretation Comments Total CK (test code = Total CK) 33 12-191 [facility]2016-02-27 22:18:00 Test Item Value Reference Range Interpretation Comments CK MB Index (test no gt See_Comment [Automate d message] The code = CK MB Index) system w [facility] generated this result transmit yue reference range : <=2.5. The reference range was not used to interpr et this result as wolf l/abnormal. [facility] [place] [employer]2016-02-27 22:18:00 Test Item Value Reference Range Interpretation Comments eGFR (test code = eGFR) 43 [facility] [place] [employer]2016-02-27 22:18:00 Test Item Value Reference Range Interpretation Comments AGAP (test code = AGAP) 14.1 10.0-20.0 [facility] [place] [employer]2016-02-27 22:18:00 Test Item Value Reference Range Interpretation Comments Bili Total (test code = Bili Total) 0.5 0.2-1.3 [facility] [place] [employer]2016-02-27 22:18:00 Test Item Value Reference Range Interpretation Comments B/C Ratio (test code = B/C Ratio) 12 6-25 [facility] [place] [employer]2016-02-27 22:18:00 Test Item Value Reference Range Interpretation Comments Globulin (test code = Globulin) 4.0 2.0-4.0 [facility]2016-02-27 22:18:00 Test Item Value Reference Range Interpretation Comments A/G Ratio (test code = A/G Ratio) 1.0 0.7-1.6 [facility]2016-02-27 22:18:00 Test Item Value Reference Range Interpretation Comments Sodium Lvl (test code = Sodium Lvl) 139 135-145 [facility]2016-02-27 22:18:00 Test Item Value Reference Range Interpretation Comments Chloride Lvl (test code = Chloride Lvl) 102 95-109 [facility]2016-02-27 22:18:00 Test Item Value Reference Range Interpretation Comments Potassium Lvl (test code = Potassium 3.1 3.5-5.1 Lvl) [facility]2016-02-27 22:18:00 Test Item Value Reference Range Interpretation Comments Glucose Lvl (test code = Glucose Lvl) 112 70-99 [facility]2016-02-27 22:18:00 Test Item Value Reference Range Interpretation Comments Creatinine Lvl (test code = Creatinine 1.41 0.50-1.40 Lvl) [facility]2016-02-27 22:18:00 Test Item Value Reference Range Interpretation Comments BUN (test code = BUN) 17 7-22 [facility]2016-02-27 22:18:00 Test Item Value Reference Range Interpretation Comments Alk Phos (test code = Alk Phos) 78 39-136 [facility]2016-02-27 22:18:00 Test Item Value Reference Range Interpretation Comments Calcium Lvl (test code = Calcium Lvl) 9.4 8.5-10.5 [facility]2016-02-27 22:18:00 Test Item Value Reference Range Interpretation Comments CO2 (test code = CO2) 26 24-32 [place] 496656-02-27 22:18:00 Test Item Value Reference Range Interpretation Comments Total Protein (test code = Total 8.1 6.4-8.4 Protein) [facility]2016-02-27 22:18:00 Test Item Value Reference Range Interpretation Comments AST (test code = AST) 33 See_Comment [Auto mated message] The system which ge nerated this result transmit yue reference range : <=37. The reference range was not used to interpr et this result as wolf l/abnormal. [facility]2016-02-27 22:18:00 Test Item Value Reference Range Interpretation Comments ALT (test code = ALT) 20 See_Comment [Auto mated message] The system which ge nerated this result transmit yue reference range : <=65. The reference range was not used to interpr et this result as wolf l/abnormal. [facility]2016-02-27 22:18:00 Test Item Value Reference Range Interpretation Comments Albumin Lvl (test code = Albumin Lvl) 4.1 3.5-5.0 [facility] HospitalFjonzkhQHLCFNJMYN1910-09-75 22:18:00 Test Item Value Reference Range Interpretation Comments D-Dimer (test code = D-Dimer) 0.58 [facility] HospitalTyccygbUHHMRHNNAX8626-21-44 22:18:00 Test Item Value Reference Range Interpretation Comments MPV (test code = MPV) 8.5 7.4-10.4 [facility] HospitalRiczhxxNDRFKDEQCL3991-81-23 22:18:00 Test Item Value Reference Range Interpretation Comments Platelet (test code = Platelet) 204 133-450 [facility] HospitalNdcrluiUZTVLCMUAO5901-43-16 22:18:00 Test Item Value Reference Range Interpretation Comments Hct (test code = Hct) 39.7 36.0-48.0 [facility] HospitalPqfqkszGKQJXQIPEZ9252-89-33 22:18:00 Test Item Value Reference Range Interpretation Comments WBC (test code = WBC) 6.2 3.7-10.4 [facility] HospitalBjreohsRLICMPZAHP8760-14-48 22:18:00 Test Item Value Reference Range Interpretation Comments RBC (test code = RBC) 4.84 4.20-5.40 [facility] HospitalSfbzxjaBIJQDPQVOO0069-99-37 22:18:00 Test Item Value Reference Range Interpretation Comments MCV (test code = MCV) 81.9 80.0-98.0 [facility] HospitalHgdfdmeOONQBOVURL8109-85-93 22:18:00 Test Item Value Reference Range Interpretation Comments MCH (test code = MCH) 27.4 pg 27.0-31.0 [facility] HospitalRyolxdwJZNEMMRAKG4003-53-05 22:18:00 Test Item Value Reference Range Interpretation Comments MCHC (test code = MCHC) 33.5 32.0-36.0 [facility] HospitalEfzwvhzBVBFOHUNFZ1195-68-26 22:18:00 Test Item Value Reference Range Interpretation Comments RDW (test code = RDW) 13.3 11.5-14.5 [facility]NoldfmzIEMHXYPJJU3998-73-72 22:18:00 Test Item Value Reference Range Interpretation Comments Hgb (test code = Hgb) 13.3 12.0-16.0 [facility] HospitalMmkhetfKULTPESVKC3172-89-01 22:18:00 Test Item Value Reference Range Interpretation Comments Lymphocytes # (test code = Lymphocytes 2.0 1.0-5.5 #) [facility] HospitalIemesevUJEYNRPZET1536-68-28 22:18:00 Test Item Value Reference Range Interpretation Comments Monocytes # (test code 0.7 See_Comment [Aut omated message] The = Monocytes #) system which generated this result tra nsmitted reference range : <=0.8. The reference r xu was not used to int erpret this result as normal/abnormal . [facility] HospitalZkcdyyjXDMXYSHBXD8410-55-29 22:18:00 Test Item Value Reference Range Interpretation Comments Segs (test code = Segs) 56.2 45.0-75.0 [facility]inteKskyewlFRYYZMRYNA9500-11-53 22:18:00 Test Item Value Reference Range Interpretation Comments Lymphocytes (test code = Lymphocytes) 32.1 20.0-40.0 [facility]inteEysrbafUBRQLLMJWJ1133-10-75 22:18:00 Test Item Value Reference Range Interpretation Comments Monocytes (test code = Monocytes) 11.5 2.0-12.0 [facility] HospitalGmaxbujQTAPZPQZLS3751-23-85 22:18:00 Test Item Value Reference Range Interpretation Comments Basophils (test code = 0.2 See_Comment [Aut omated message] The Basophils) system which ge nerated this result tra nsmitted reference range : <=1.0. The reference r xu was not used to int erpret this result as normal/abnormal . [facility] HospitalQoqjyqfNZEGLMLOYT5593-36-13 22:18:00 Test Item Value Reference Range Interpretation Comments Segs-Bands # (test code = Segs-Bands #) 3.5 1.5-8.1 [facility]ITALPHLZNIW4680-53-88 19:00:00 Test Item Value Reference Range Interpretation Comments CK MB Index (test no gt See_Comment [Automate d message] The code = CK MB Index) system w hich generated this result transmit yue reference range : <=2.5. The reference range was not used to interpr et this result as wolf l/abnormal. [facility] [employer] TLMXBPF3825-67-52 19:00:00 Test Item Value Reference Range Interpretation Comments Troponin-I (test code no gt See_Comment [Auto mated message] The = Troponin-I) system which g enerated this result transmit yue reference range : <=0.40. The reference r xu was not used to interpr et this result as wolf l/abnormal. [facility] [employer] YNGBHUQ0253-03-35 19:00:00 Test Item Value Reference Range Interpretation Comments Total CK (test code = Total CK) 39 12-191 [facility] [employer] TUKIFGX8892-94-66 19:00:00 Test Item Value Reference Range Interpretation Comments CK MB (test code = CK MB) no gt 0.5-3.6 [facility] [employer] [id number] 19:00:00 Test Item Value Reference Range Interpretation Comments Calcium Lvl (test code = Calcium Lvl) 9.3 8.5-10.5 [facility] [employer] [id number] 19:00:00 Test Item Value Reference Range Interpretation Comments AGAP (test code = AGAP) 11.6 10.0-20.0 [facility] [employer] [id number] 19:00:00 Test Item Value Reference Range Interpretation Comments CO2 (test code = CO2) 26 24-32 [facility] [employer] [id number] 19:00:00 Test Item Value Reference Range Interpretation Comments Sodium Lvl (test code = Sodium Lvl) 141 135-145 [facility] [employer] [id number] 19:00:00 Test Item Value Reference Range Interpretation Comments BUN (test code = BUN) 10 7-22 [facility] [employer] [id number] 19:00:00 Test Item Value Reference Range Interpretation Comments Potassium Lvl (test code = Potassium 3.6 3.5-5.1 Lvl) [facility] [employer] ZCQHY9338-87-27 19:00:00 Test Item Value Reference Range Interpretation Comments Chloride Lvl (test code = Chloride Lvl) 107 95-109 [facility] [employer] [id number] 19:00:00 Test Item Value Reference Range Interpretation Comments eGFR (test code = eGFR) 83 [facility]2016-02-12 19:00:00 Test Item Value Reference Range Interpretation Comments Creatinine Lvl (test code = Creatinine 0.82 0.50-1.40 Lvl) [facility]2016-02-12 19:00:00 Test Item Value Reference Range Interpretation Comments Glucose Lvl (test code = Glucose Lvl) 97 70-99 [facility] HospitalSwnkwioVZSGEDXLJZ5113-69-13 19:00:00 Test Item Value Reference Range Interpretation Comments Basophils # (test code 0.0 See_Comment [Aut omated message] The = Basophils #) system which generated this result tra nsmitted reference range : <=0.2. The reference r xu was not used to int erpret this result as normal/abnormal . [facility] HospitalTskvqmaZDNZWJRCEZ6558-80-73 19:00:00 Test Item Value Reference Range Interpretation Comments Lymphocytes (test code = Lymphocytes) 29.6 20.0-40.0 [facility] HospitalZoizjhaOIKIGUCIFE4335-85-42 19:00:00 Test Item Value Reference Range Interpretation Comments Monocytes # (test code 0.5 See_Comment [Aut omated message] The = Monocytes #) system which generated this result tra nsmitted reference range : <=0.8. The reference r xu was not used to int erpret this result as normal/abnormal . [facility]ZY0620[facility]35-[facility] 19:00:00 Test Item Value Reference Range Interpretation Comments Eosinophils # (test code 0.0 See_Comment [A utomated message] The = Eosinophils #) system the medical center h generated this result tra nsmitted reference range : <=0.5. The reference r xu was not used to int erpret this result as normal/abnormal . [facility]YqomajwYAOMACZJAW3075-58-55 19:00:00 Test Item Value Reference Range Interpretation Comments Basophils (test code = 0.2 See_Comment [Aut omated message] The Basophils) system which ge nerated this result tra nsmitted reference range : <=1.0. The reference r xu was not used to int erpret this result as normal/abnormal . [facility]XilmvnjUANKVMVHAQ4691-12-80 19:00:00 Test Item Value Reference Range Interpretation Comments Lymphocytes # (test code = Lymphocytes 1.7 1.0-5.5 #) [facility]OsuabavEQPPEBGHHM0265-76-81 19:00:00 Test Item Value Reference Range Interpretation Comments Segs-Bands # (test code = Segs-Bands #) 3.7 1.5-8.1 [facility] Hospit[id number] 19:00:00 Test Item Value Reference Range Interpretation Comments Monocytes (test code = Monocytes) 7.7 2.0-12.0 [facility] HospitalDmmzuzdZBITXVUQJD8590-01-30 19:00:00 Test Item Value Reference Range Interpretation Comments Eosinophils (test code = 0.0 See_Comment [A utomated message] The Eosinophils) system which ge nerated this result tra nsmitted reference range : <=4.0. The reference r xu was not used to int erpret this result as normal/abnormal . [facility]YemjfduFDGBVWTFJA9780-40-79 19:00:00 Test Item Value Reference Range Interpretation Comments Segs (test code = Segs) 62.5 45.0-75.0 [facility] HospitalBpezxrvWUOKLMENVZ8235-90-20 19:00:00 Test Item Value Reference Range Interpretation Comments RDW (test code = RDW) 12.5 11.5-14.5 [facility]PhklntzMXPKEOAECR5884-00-11 19:00:00 Test Item Value Reference Range Interpretation Comments MCHC (test code = MCHC) 32.8 32.0-36.0 [facility] HospitalTjvwbsdKAHYNIELFF5036-64-41 19:00:00 Test Item Value Reference Range Interpretation Comments MCH (test code = MCH) 28.0 pg 27.0-31.0 [facility]EywxuxkJWMNYMURHF1617-14-44 19:00:00 Test Item Value Reference Range Interpretation Comments MCV (test code = MCV) 85.3 80.0-98.0 [facility] HospitalJnzwpmbQMJLYJZOYD1977-08-67 19:00:00 Test Item Value Reference Range Interpretation Comments Hct (test code = Hct) 36.6 36.0-48.0 [facility] HospitalGsrhrnzIMJTFAPGYD6320-66-52 19:00:00 Test Item Value Reference Range Interpretation Comments Hgb (test code = Hgb) 12.0 12.0-16.0 [facility]OlfppumCGQVBMNKIF4921-14-65 19:00:00 Test Item Value Reference Range Interpretation Comments WBC (test code = WBC) 5.9 3.7-10.4 [facility] HospitalWtdqxzsJGZGBALTMW0865-96-21 19:00:00 Test Item Value Reference Range Interpretation Comments RBC (test code = RBC) 4.29 4.20-5.40 [facility] HospitalSnsodpiZENTGLCTYP8423-47-85 19:00:00 Test Item Value Reference Range Interpretation Comments MPV (test code = MPV) 8.5 7.4-10.4 [facility] HospitalUzvrffrCQFJWYZEMS4239-23-45 19:00:00 Test Item Value Reference Range Interpretation Comments Platelet (test code = Platelet) 192 133-450 [facility] AND [id number] 19:00:00 Test Item Value Reference Range Interpretation Comments UA Urobilinogen (test code = UA <=1.0 mg/dL 0.1-1.0 Urobilinogen) [facility] AND [id number] 19:00:00 Test Item Value Reference Range Interpretation Comments UA Ketones (test code = UA Ketones) Negative [facility] AND [id number] 19:00:00 Test Item Value Reference Range Interpretation Comments UA RBC (test code = no gt See_Comment [Automa yue message] The UA RBC) system which ge nerated this result transmit yue reference range : <=2. The reference range was not used to interpr et this result as wolf l/abnormal. [facility] AND [id number] 19:00:00 Test Item Value Reference Range Interpretation Comments UA Color (test code = Light Yellow UA Color) *NA*(06/21/15 1:00 PM) [facility] AND [id number] 19:00:00 Test Item Value Reference Range Interpretation Comments UA Turbidity (test code = Clear (06/21/15 1:00 UA Turbidity) PM) [facility] AND [id number] 19:00:00 Test Item Value Reference Range Interpretation Comments UA Sq Epi (test code = UA Sq Epi) Few /LPF [facility] AND [id number] 19:00:00 Test Item Value Reference Range Interpretation Comments UA WBC (test code = 1 See_Comment [Automa yue message] The UA WBC) system which ge nerated this result transmit yue reference range : <=5. The reference range was not used to interpr et this result as wolf l/abnormal. [facility] AND [id number] 19:00:00 Test Item Value Reference Range Interpretation Comments UA Blood (test code = Negative (06/21/15 1:00 UA Blood) PM) [facility] AND [id number] 19:00:00 Test Item Value Reference Range Interpretation Comments UA Nitrite (test code Negative (06/21/15 1:00 = UA Nitrite) PM) [facility] AND [id number] 19:00:00 Test Item Value Reference Range Interpretation Comments UA Leuk Est (test Negative (06/21/15 1:00 code = UA Leuk Est) PM) [facility] AND [id number] 19:00:00 Test Item Value Reference Range Interpretation Comments UA Glucose (test code = UA Negative mg/dL Glucose) [facility] AND [id number] 19:00:00 Test Item Value Reference Range Interpretation Comments UA Bili (test code = Negative *NA*(06/21/15 UA Bili) 1:00 PM) [facility] AND [id number] 19:00:00 Test Item Value Reference Range Interpretation Comments UA Spec Grav (test code = UA Spec Grav) 1.011 [facility] AND [id number] 19:00:00 Test Item Value Reference Range Interpretation Comments UA pH (test code = UA pH) 8.0 5.0-8.0 [facility] AND [id number] 19:00:00 Test Item Value Reference Range Interpretation Comments UA Protein (test code = UA Negative mg/dL Protein) [facility] [id number] 19:00:00 Test Item Value Reference Range Interpretation Comments CK MB Index (test no gt See_Comment [Automate d message] The code = CK MB Index) system w [facility] generated this result transmit yue reference range : <=2.5. The reference range was not used to interpr et this result as wolf l/abnormal. [facility] [id number] 19:00:00 Test Item Value Reference Range Interpretation Comments Troponin-I (test code no gt See_Comment [Auto mated message] The = Troponin-I) system which g enerated this result transmit yue reference range : <=0.40. The reference r xu was not used to interpr et this result as wolf l/abnormal. [facility] [id number] 19:00:00 Test Item Value Reference Range Interpretation Comments Total CK (test code = Total CK) 39 12-191 [facility] [id number] 19:00:00 Test Item Value Reference Range Interpretation Comments CK MB (test code = CK MB) no gt 0.5-3.6 [facility] [id number] 19:00:00 Test Item Value Reference Range Interpretation Comments Calcium Lvl (test code = Calcium Lvl) 9.3 8.5-10.5 [facility]2016-02-12 19:00:00 Test Item Value Reference Range Interpretation Comments AGAP (test code = AGAP) 11.6 10.0-20.0 [facility]2016-02-12 19:00:00 Test Item Value Reference Range Interpretation Comments CO2 (test code = CO2) 26 24-32 [facility]2016-02-12 19:00:00 Test Item Value Reference Range Interpretation Comments Sodium Lvl (test code = Sodium Lvl) 141 135-145 [facility]2016-02-12 19:00:00 Test Item Value Reference Range Interpretation Comments BUN (test code = BUN) 10 7-22 [facility]2016-02-12 19:00:00 Test Item Value Reference Range Interpretation Comments Potassium Lvl (test code = Potassium 3.6 3.5-5.1 Lvl) [facility]2016-02-12 19:00:00 Test Item Value Reference Range Interpretation Comments Chloride Lvl (test code = Chloride Lvl) 107 95-109 [facility]2016-02-12 19:00:00 Test Item Value Reference Range Interpretation Comments eGFR (test code = eGFR) 83 [facility]2016-02-12 19:00:00 Test Item Value Reference Range Interpretation Comments Creatinine Lvl (test code = Creatinine 0.82 0.50-1.40 Lvl) [facility]2016-02-12 19:00:00 Test Item Value Reference Range Interpretation Comments Glucose Lvl (test code = Glucose Lvl) 97 70-99 [id number] 19:00:00 Test Item Value Reference Range Interpretation Comments Basophils # (test code 0.0 See_Comment [Aut omated message] The = Basophils #) system which generated this result tra nsmitted reference range : <=0.2. The reference r xu was not used to int erpret this result as normal/abnormal . [facility]YldocciQWSKENBESO7071-47-89 19:00:00 Test Item Value Reference Range Interpretation Comments Lymphocytes (test code = Lymphocytes) 29.6 20.0-40.0 [facility] HospitalUcrmlkwIWXEAKILXL9217-12-09 19:00:00 Test Item Value Reference Range Interpretation Comments Monocytes # (test code 0.5 See_Comment [Aut omated message] The = Monocytes #) system which generated this result tra nsmitted reference range : <=0.8. The reference r xu was not used to int erpret this result as normal/abnormal . [facility] HospitalIicftetCLBMGYZKRR1653-10-37 19:00:00 Test Item Value Reference Range Interpretation Comments Eosinophils # (test code 0.0 See_Comment [A utomated message] The = Eosinophils #) system whic h generated this result tra nsmitted reference range : <=0.5. The reference r xu was not used to int erpret this result as normal/abnormal . [facility] HospitalWhjjzddNKQJUKDWHF8552-92-37 19:00:00 Test Item Value Reference Range Interpretation Comments Basophils (test code = 0.2 See_Comment [Aut omated message] The Basophils) system which ge nerated this result tra nsmitted reference range : <=1.0. The reference r xu was not used to int erpret this result as normal/abnormal . [facility] HospitalRzvdwxjREOLIHHQRC1308-57-55 19:00:00 Test Item Value Reference Range Interpretation Comments Lymphocytes # (test code = Lymphocytes 1.7 1.0-5.5 #) [facility] HospitalPowjiogKQCGAVYPUH4907-33-51 19:00:00 Test Item Value Reference Range Interpretation Comments Segs-Bands # (test code = Segs-Bands #) 3.7 1.5-8.1 [id number] 19:00:00 Test Item Value Reference Range Interpretation Comments Monocytes (test code = Monocytes) 7.7 2.0-12.0 [facility] HospitalNmerhreKXNHUICUJB0804-49-82 19:00:00 Test Item Value Reference Range Interpretation Comments Eosinophils (test code = 0.0 See_Comment [A utomated message] The Eosinophils) system which ge nerated this result tra nsmitted reference range : <=4.0. The reference r xu was not used to int erpret this result as normal/abnormal . [facility] HospitalFjdgsvbAYQIURGINC6892-04-59 19:00:00 Test Item Value Reference Range Interpretation Comments Segs (test code = Segs) 62.5 45.0-75.0 [facility] HospitalYwdqbtkYRYGCXLSBW8698-16-28 19:00:00 Test Item Value Reference Range Interpretation Comments RDW (test code = RDW) 12.5 11.5-14.5 [id number] 19:00:00 Test Item Value Reference Range Interpretation Comments MCHC (test code = MCHC) 32.8 32.0-36.0 [facility]inteElgirlmVQLTHVDITU5107-63-90 19:00:00 Test Item Value Reference Range Interpretation Comments MCH (test code = MCH) 28.0 pg 27.0-31.0 [facility]YsuxxlyUJOSJPGVDD8093-98-71 19:00:00 Test Item Value Reference Range Interpretation Comments MCV (test code = MCV) 85.3 80.0-98.0 [facility]inteHxmssuqAUXOMHOSLJ2194-06-45 19:00:00 Test Item Value Reference Range Interpretation Comments Hct (test code = Hct) 36.6 36.0-48.0 [facility] PointeMoudsupTFCLJBWYXE6824-51-70 19:00:00 Test Item Value Reference Range Interpretation Comments Hgb (test code = Hgb) 12.0 12.0-16.0 [facility] PointeQthilngQRZLWUKVBA2889-14-43 19:00:00 Test Item Value Reference Range Interpretation Comments WBC (test code = WBC) 5.9 3.7-10.4 [facility]in[id number] 19:00:00 Test Item Value Reference Range Interpretation Comments RBC (test code = RBC) 4.29 4.20-5.40 [facility]in[id number] 19:00:00 Test Item Value Reference Range Interpretation Comments MPV (test code = MPV) 8.5 7.4-10.4 [facility]inteWuhfnflKECTQEBUSF4916-00-42 19:00:00 Test Item Value Reference Range Interpretation Comments Platelet (test code = Platelet) 192 133-450 [facility] AND [id number] 19:00:00 Test Item Value Reference Range Interpretation Comments UA Urobilinogen (test code = UA <=1.0 mg/dL 0.1-1.0 Urobilinogen) [facility] AND [id number] 19:00:00 Test Item Value Reference Range Interpretation Comments UA Ketones (test code = UA Ketones) Negative [facility] AND [id number] 19:00:00 Test Item Value Reference Range Interpretation Comments UA RBC (test code = no gt See_Comment [Automa yue message] The UA RBC) system which ge nerated this result transmit yue reference range : <=2. The reference range was not used to interpr et this result as wolf l/abnormal. [facility] AND [id number] 19:00:00 Test Item Value Reference Range Interpretation Comments UA Color (test code = Light Yellow UA Color) *NA*(06/21/15 1:00 PM) [facility] AND [id number] 19:00:00 Test Item Value Reference Range Interpretation Comments UA Turbidity (test code = Clear (06/21/15 1:00 UA Turbidity) PM) [facility] AND [id number] 19:00:00 Test Item Value Reference Range Interpretation Comments UA Sq Epi (test code = UA Sq Epi) Few /LPF [facility] AND [id number] 19:00:00 Test Item Value Reference Range Interpretation Comments UA WBC (test code = 1 See_Comment [Automa yue message] The UA WBC) system which ge nerated this result transmit yue reference range : <=5. The reference range was not used to interpr et this result as wolf l/abnormal. [facility] AND [id number] 19:00:00 Test Item Value Reference Range Interpretation Comments UA Blood (test code = Negative (06/21/15 1:00 UA Blood) PM) [facility] AND [id number] 19:00:00 Test Item Value Reference Range Interpretation Comments UA Nitrite (test code Negative (06/21/15 1:00 = UA Nitrite) PM) [facility] AND [id number] 19:00:00 Test Item Value Reference Range Interpretation Comments UA Leuk Est (test Negative (06/21/15 1:00 code = UA Leuk Est) PM) [facility] AND [id number] 19:00:00 Test Item Value Reference Range Interpretation Comments UA Glucose (test code = UA Negative mg/dL Glucose) [facility] AND [id number] 19:00:00 Test Item Value Reference Range Interpretation Comments UA Bili (test code = Negative *NA*(06/21/15 UA Bili) 1:00 PM) [facility] AND [id number] 19:00:00 Test Item Value Reference Range Interpretation Comments UA Spec Grav (test code = UA Spec Grav) 1.011 [facility] AND [id number] 19:00:00 Test Item Value Reference Range Interpretation Comments UA pH (test code = UA pH) 8.0 5.0-8.0 [facility] AND [id number] 19:00:00 Test Item Value Reference Range Interpretation Comments UA Protein (test code = UA Negative mg/dL Protein) [facility] Notes Date/Time Note Provider Source 2015-09-26 13:20:44-00:00 Examination: Ext Lower Arterial Dopple r bilat US [facility] Provided History: Pain, Limb IMPRESSION: 1. No [...] is evident that would otherwise suggest pseudoaneurysm. 2015-09-25 16:30:00-00:00 Exam: Two-view chest x-ray [facility] Reason for Exam: Chest pain Comparison Exam: Chest x-ray 08/07/2015 Discussion: Cardiomediastinal silhouette is within normal limits. Both hemidiaphragms well visualized. No pulmonary edema or pleural effusions. No focal lung consolidations. Trachea is midline. No acute bony abnormalities. Impression: 1. No acute cardiopulmonary abnormalities. 2015-09-25 16:30:00-00:00 CLINICAL HISTORY:Headache wi th Dizziness and Giddiness. Bowman AGE: 55 years GENDER: Female TECHNIQUE: Axial [...] The paranasal sinuses and mastoid air cells well pneumatized. IMPRESSION: No acute intracranial findings. 2015-09-11 18:45:00-00:00 EXAM: MRI THORACIC SPINE WITH AND WITH OUT CONTRAST [facility] DATE: 09/11/2015 INDICATION: G81.91 Hemiplegia, unspecified affec ting right dominant side COMPARISON: None TECHNIQUE: Multiplanar, [...] ncement. No canal stenosis or foraminal narrowing 2015-09-11 18:45:00-00:00 EXAM: MRI LUMBAR SPINE WITHOUT AND WIT H CONTRAST [facility] DATE: 09/11/2015 at 1733 hours INDICATION: G81.91 Hemiplegia, unspecified affec ting right dominant side COMPARISON: None. TECHNIQUE: Sagittal [...] postcont rast imaging. IMPRESSION: 1. Mild degenerative changes at L3-L4 and L4-L5 without significant spinal canal stenosis. 2. Mild diffuse bulge and bi lateral facet hypertrophy at L4-L5 resulted in bilateral mild neural foramina narrowing, causing encroachment upon exiting L4 nerve root without nerve root compression. 3. No abnormal enhancement within the spine. 4. Simple appearing right renal cyst. Retroaorti c left renal vein. 2015-09-11 17:00:00-00:00 EXAM: MRI CERVICAL SPINE WITH AND WITH OUT CONTRAST [facility] Riddle DATE: 09/11/2015 4:05 PM CDT INDICATION: 55 [...] at C4-C5 and C5-C6 as detailed above. 2015-09-11 16:15:00-00:00 EXAM: MRI BRAIN WITH AND WITHOUT CONTR AST SYD DOMINGUEZD [place] DATE: 09/11/2015 INDICATION: G81.91 Hemiplegia, unspecified affec ting right dominant side COMPARISON: CT brain 08/07/2015 [...] sinus. Unremarkable MRI exam of the brain. 2015-08-08 04:31:26-00:00 CLINICAL HISTORY : weakness , Other- See Note to Radiologist [facility] EXAM : Bilateral Carotid Duplex 08/07/2015 6:12 P M CDT COMPARISON : none TECHNIQUE : Utilizing [...] plaque or narr owing on grayscale images. 2015-08-07 16:28:18-00:00 EXAMINATION: Chest, 1 view [facility] HISTORY: Dizziness; FINDINGS: Single frontal vie w of the chest is submitted for interpretation and compared to 07/06/2015. The patient is rotated to th e right. The cardiomediastinal silhouette is within normal limits. There are no pleural effusions or pneumothorax. The lungs are clear without focal pneumonic consolidation or pulmonary edema. IMPRESSION: 1. No radiographic evidence of acute cardiopulmo nary disease. 2015-08-07 16:03:53-00:00 CT BRAIN WITHOUT CONTRAST [facility] COMPARISON: 06/21/2015 CT exam. COMMENTS: Coronal and [...] sinusitis. 4. Bilateral frontal lobe mild atrophy. 2015-07-06 16:26:36-00:00 EXAM: AP CHEST X-RAY [facility]man DATE: 07/06/2015 4:17 PM [employer] . CLINICAL INDICATION: Chest pain TECHNIQUE: SINGLE FRONTAL VIEW OF THE CHEST COMPARISON: 06/21/2015 chest x-ray FINDINGS: The lungs are well -inflated and clear. Heart and mediastinal contours are normal. Bony thorax is unremarkable. IMPRESSION: No acute intrath oracic process or worrisome change compared to previous study 2015-06-21 14:46:00-00:00 Exam: CT scan of the brain without con trast [facility] Reason for Exam: Headache with Dizziness and [...] opacified. Impression: 1. No acute intracranial abnormalities appreciat ed. 2015-06-21 13:34:32-00:00 CLINICAL HISTORY: Chest pain [facility] AGE: 54 years GENDER: Female TECHNIQUE: Single AP, portable chest radiograph, 1 view. COMPARISON: None FINDINGS: The cardiomediastinal silhouette is within wolf l limits. No focal airspace or interst itial opacities are seen. No pleural effusions. No pneumothorax. No significant osseous abnormalities are identif ied. IMPRESSION: No acute cardiopulmonary disease.
[2022-10-19 20:16] LABS: Absolute Lymphocytes (CBC) 0.5 K/uL (0.7-4.9); Hematocrit 30.7 % (36.0-45.0); Lymphocytes % 6.8 % (15.3-44.8); MCV 93.2 fL (80-100); RBC Red Blood Cell Count 3.29 M/uL (3.86-4.86)
[2022-10-19 20:20] LABS: Protime INR 1.17
--- NOTE | 2022-10-19 20:23 | RAD REPORT ---
EXAM DESCRIPTION: [facility] Single View10/19/2022 7:55 pm CLINICAL HISTORY: Shortness of breath COMPARISON: none FINDINGS: The lungs appear clear of acute infiltrate. The heart is moderately enlarged IMPRESSION: No acute abnormalities displayed
[2022-10-19 20:28] LABS: SARS-CoV-2 Antigen Rapid Res Negative (Negative)
[2022-10-19 20:31] LABS: Albumin 3.8 g/dL (3.4-5.0); Bilirubin Total 0.5 mg/dL (0.2-1.0); Potassium 3.9 mEq/L (3.5-5.1); Protein, Total 8.6 g/dL (6.4-8.2)
[2022-10-19] MEDS ORDERED: LORazepam 2 MG/ML VIAL ONE (20:49)
[2022-10-19] MEDS ORDERED: METHYLPREDNISOLONE 125 MG INJ ONE (20:49)
[2022-10-19] MEDS ORDERED: LEVALBUTEROL 0.63 MG/3 ML NEB ONE (20:49)
[2022-10-19] MEDS ORDERED: ALBUTEROL 2.5 MG/3 ML NEB SOL ONE (20:50)
--- NOTE | 2022-10-19 21:48 | RAD REPORT ---
EXAM DESCRIPTION: CT - Chest For Pe Angio - 10/19/2022 9:27 pm CLINICAL HISTORY: sob COMPARISON: None. TECHNIQUE: Dynamically enhanced axial 3 mm thick images of the chest were obtained during administra tion of 100 mL Isovue 370 IV contrast. Coronal and oblique reconstruction images were generated and r eviewed. Exam utilizes a protocol for optimal evaluation of pulmonary arterial tree. Maximum intensity projections 3D imaging was utilized All CT scans are performed using dose optimization technique as appropriate and may include automated exposure control or mA/KV adjustment according to patient size. FINDINGS: The opacification of pulmonary arteries is somewhat suboptimal. Pulmonary embolus is not s een A thoracic aortic aneurysm is not noted. Moderate to large pericardial effusion Small bilateral pleural effusions Mild bilateral interstitial lung opacities IMPRESSION: No evidence for a pulmonary embolism. Moderate to large pericardial effusion Mild bilateral interstitial lung opacities probably mild interstitial pulmonary edema
[2022-10-19 23:14] LABS: Troponin High Sensitivity 13.6 pg/mL (<58.9)
--- NOTE | 2022-10-19 23:18 | ER ---
Nurse's Notes [facility] Name: Aniya Foreman Age: 62 yrs Sex: Female : 1960 Arrival Date: 10/19/2022 Time: 18:16 Bed 23 [facility] MD: Diagnosis: Pericardial effusion (noninflammatory) Presentation: 10/19 18:56 Chief complaint: Patient states: SOB x months. Coronavirus screen: Client denies travel ss out of the [place] in the last 14 days. Ebola Screen: Patient denies exposure to infectious person. Patient denies travel to an Ebola-affected area in the 21 days before illness onset. Initial Sepsis Screen: Does the patient meet any 2 criteria? No. Patient's initial sepsis screen is negative. Does the patient have a suspected source of infection? No. Patient's initial sepsis screen is negative. Risk Assessment: Do you want to hurt yourself or someone else? Patient reports no desire to harm self or others. Onset of symptoms is unknown. 18:56 Method Of Arrival: Wheelchair ss 18:56 Acuity: VIDAL 3 ss Triage Assessment: 10/20 01:24 General: Behavior is calm, cooperative. General: Appears uncomfortable. Respiratory: kd3 Reports shortness of breath at rest Onset: The symptoms/episode began/occurred gradually, the patient has moderate shortness of breath. Historical: - Allergies: 10/19 19:03 PENICILLINS; ss - PMHx: 19:03 High Cholesterol; Hypertension; Bipolar disorder; ss - Immunization history:: Client reports receiving the 2nd dose of the Covid vaccine. - Social history:: Smoking status: Patient denies any tobacco usage or history of. Screenin:55 [facility] ED Fall Risk Assessment (Adult) History of falling in the last 3 months, mb9 including since admission No falls in past 3 months (0 pts) Confusion or Disorientation No (0 pts) Intoxicated or Sedated No (0 pts) Impaired Gait No (0 pts) Mobility Assist Device Used No (0 pt) Altered Elimination No (0 pt) Score/Fall Risk Level 0 - 2 = Low Risk Oriented to surroundings, Maintained a safe environment, Educated pt \T\ family on fall prevention, incl call for assistance when getting out of bed. Abuse screen: Denies threats or abuse. Nutritional screening: No deficits noted. Tuberculosis screening: No symptoms or risk factors identified. Assessment: 19:54 General: Appears in no apparent distress. Pain: Denies pain. Neuro: Sharp mb9 Agitation-Sedation Scale (RASS): 0 - Alert and Calm Level of Consciousness is alert, Oriented to person, place, time, situation, Appropriate for age. Cardiovascular: Heart tones S1 S2 present Rhythm is regular. Respiratory: Airway is patent Respiratory effort is even, Respiratory pattern is tachypnea Breath sounds are coarse bilaterally. GI: Abdomen is round non-distended, Bowel sounds present X 4 quads. Abd is soft and non tender X 4 quads. Derm: Skin is fragile, is thin, Skin is dry, Skin is pale, Skin temperature is cool. Musculoskeletal: Range of motion: intact in all extremities. 21:00 Reassessment: No changes from previously documented assessment. Patient and/or family mb9 updated on plan of care and expected duration. Pain level reassessed. Patient is alert, oriented x 3, equal unlabored respirations, skin warm/dry/pink. 22:02 Reassessment: Pt O2 saturation 89% on 2 l/min. Placed pt on 4 l/min via nasal cannula, mb9 O2 now 94%. ERP notified. 22:21 Reassessment: RT at bedside placing BIPAP on pt. mb9 23:28 Reassessment: Patient and/or family updated on plan of care and expected duration. Pain mb9 level reassessed. Patient is alert, oriented x 3, equal unlabored respirations, skin warm/dry/pink. Patient states feeling better. Patient states symptoms have improved. Vital Signs: 18:56 BP 162 / 85; Pulse 95; Resp 24; Temp 100.3; Pulse Ox 92% on R/A; Weight 110.68 kg; ss Height 5 ft. 4 in. ; Pain 0/10; 20:16 BP 140 / 78; Pulse 84; Resp 28; Pulse Ox 98% on 2 lpm NC; mb9 20:54 BP 135 / 71; Pulse 83; Resp 34; Pulse Ox 95% on 3 lpm NC; mb9 22:03 BP 126 / 67; Pulse 83; Resp 34; Pulse Ox 94% on 4 lpm NC; mb9 22:35 BP 123 / 73; Pulse 83; Resp 20; Temp 99.8(O); Pulse Ox 98% on 40 lpm BiPAP; mb9 23:28 BP 114 / 70; Pulse 79; Resp 18; Pulse Ox 98% on 40 lpm BiPAP; mb9 18:56 Body Mass Index 41.88 (110.68 kg, 162.56 cm) ss 18:56 Pain Scale: Adult ss ED Course: 18:20 Patient arrived in ED. mr 18:32 Leonardo Kristen, [facility] kb 18:32 Timothy Nick MD is Attending Physician. kb 18:42 Shannon Nuñez RN is Primary Nurse. mb9 19:03 Triage completed. ss 19:03 Arm band placed on left wrist. ss 19:15 Missed attempt(s): 22 gauge in right forearm. Bleeding controlled, band aid applied, mb9 catheter tip intact. 19:35 Missed attempt(s): 22 gauge in left hand. Bleeding controlled, band aid applied, mb9 catheter tip intact. 19:55 Placed in gown. Bed in low position. Call light in reach. Side rails up X 1. Client mb9 placed on continuous cardiac and pulse oximetry monitoring. NIBP monitoring applied. rubber molder on. 19:56 Chest Single View XRAY In Process Unspecified. EDMS 19:56 No provider procedures requiring assistance completed. mb9 20:00 Blood Culture Adult (2) Sent. kd3 20:00 CBC with Diff Sent. kd3 20:00 CMP Sent. kd3 20:00 Ptt, Activated Sent. kd3 20:00 Protime (+inr) Sent. kd3 20:00 Lactate w/ 2H reflex if indic. Sent. kd3 20:01 Inserted saline lock: 20 gauge in left antecubital area, using aseptic technique. Blood kd3 collected. 20:09 SARS RAPID Sent. mb9 20:09 Flu Sent. mb9 21:29 Chest For PE Angio CT In Process Unspecified. EDMS 22:03 BNP Sent. mb9 22:16 Transfer initiated per Sai WHATLEY. as7 22:21 Patient transferred, IV remains in place. mb9 22:50 BIPAP Sent. mb9 Administered Medications: 20:45 Drug: MethylPrednisoLONE IVP 125 mg Route: IVP; Site: left antecubital; mb9 21:55 Follow up: Response: No adverse reaction mb9 20:50 Drug: Albuterol Inhalation 2.5 mg Route: Inhalation; mb9 20:50 Drug: Ipratropium Inhalation Aerosol 0.5 mg Route: Inhalation; mb9 20:50 Drug: Ativan IVP 0.5 mg Route: IVP; Site: left antecubital; mb9 21:55 Follow up: Response: No adverse reaction mb9 Medication: 19:56 VIS not applicable for this client. mb9 Outcome: 23:17 ER care complete, transfer ordered by MD. martinez 23:29 Condition: stable mb9 10/20 01:24 Transferred by ground EMS kd3 Discharge instructions given to patient, Instructed on discharge instructions, follow up and referral plans. Demonstrated understanding of instructions, follow-up care. 01:25 Patient left the ED. kd3 Signatures: Dispatcher [employer] EDMS Kristen Patterson, METALIZING MACHINE OPERATOR-C METALIZING MACHINE OPERATOR-Shannon Dailey Shelby, RN RN Marisela Adams RN RN kd3 Shannon Nuñez RN RN mb9 Yesi Britton as7 Corrections: (The following items were deleted from the chart) 10/19 22:05 22:03 Pulse 83bpm; Resp 34bpm; Pulse Ox 94% 4 lpm Nasal Cannula; mb9 mb9 22:11 22:03 Troponin High Sensitivity+C.LAB.BRZ drawn and sent. mb9 EDMS 22:40 22:35 BP 123 / 73; Pulse 83bpm; Resp 20bpm; Pulse Ox 98% 02 40lpm BiPAP; mb9 mb9
--- NOTE | 2022-10-19 23:18 | EDPHYS ---
Physician Documentation [facility] Name: Aniya Foreman Age: 62 yrs Sex: Female : 1960 Arrival Date: 10/19/2022 Time: 18:16 Bed 23 Private MD: ED Physician Timothy Nick HPI: 10/19 23:19 This 62 yrs old Female presents to ER via Wheelchair with complaints of Breathing kb Difficulty. 23:19 The patient has shortness of breath at rest. Onset: The symptoms/episode began/occurred kb 1 month(s) ago, and became worse. Duration: The symptoms are continuous. The patient's shortness of breath has no apparent modifying factors. Associated signs and symptoms: The patient has no apparent associated signs or symptoms. Severity of symptoms: At their worst the symptoms were moderate in the emergency department the symptoms are unchanged. The patient has not experienced similar symptoms in the past. The patient has not recently seen a physician. Pt reports shortness of breath that started one month ago and has continuously gotten worse. Denies cough, congestion, fever, chills. Historical: - Allergies: 19:03 PENICILLINS; ss - PMHx: 19:03 High Cholesterol; Hypertension; Bipolar disorder; ss - Immunization history:: Client reports receiving the 2nd dose of the Covid vaccine. - Social history:: Smoking status: Patient denies any tobacco usage or history of. ROS: 23:18 Constitutional: Negative for fever, chills, and weight loss. kb 23:18 Respiratory: Positive for dyspnea on exertion, shortness of breath. 23:18 All other systems are negative. Exam: 23:18 Constitutional: This is a well developed, well nourished patient who is awake, alert, kb and in no acute distress. Head/Face: Normocephalic, atraumatic. ENT: Moist Mucous membranes Cardiovascular: Regular rate and rhythm with a normal S1 and S2. No gallops, murmurs, or rubs. No pulse deficits. Abdomen/GI: Soft, non-tender. No distention Skin: Warm, dry with normal turgor. Normal color. MS/ Extremity: Pulses equal, no cyanosis. Neurovascular intact. Full, normal range of motion. Neuro: Awake and alert, GCS 15, oriented to person, place, time, and situation. Moves all extremities. Normal gait. 23:18 Respiratory: mild respiratory distress is noted, moderate respiratory distress is noted, Respirations: labored breathing, that is moderate, Breath sounds: decreased breath sounds, that are mild, that are moderate, are located in both bases. 23:19 ECG was reviewed by the Attending Physician. Vital Signs: 18:56 BP 162 / 85; Pulse 95; Resp 24; Temp 100.3; Pulse Ox 92% on R/A; Weight 110.68 kg; ss Height 5 ft. 4 in. ; Pain 0/10; 20:16 BP 140 / 78; Pulse 84; Resp 28; Pulse Ox 98% on 2 lpm NC; mb9 20:54 BP 135 / 71; Pulse 83; Resp 34; Pulse Ox 95% on 3 lpm NC; mb9 22:03 BP 126 / 67; Pulse 83; Resp 34; Pulse Ox 94% on 4 lpm NC; mb9 22:35 BP 123 / 73; Pulse 83; Resp 20; Temp 99.8(O); Pulse Ox 98% on 40 lpm BiPAP; mb9 23:28 BP 114 / 70; Pulse 79; Resp 18; Pulse Ox 98% on 40 lpm BiPAP; mb9 18:56 Body Mass Index 41.88 (110.68 kg, 162.56 cm) ss 18:56 Pain Scale: Adult ss MDM: 18:42 Patient medically screened. kb 23:16 Differential diagnosis: Bronchitis CHF exacerbation, pneumonia, pulmonary edema, kb Pulmonary Embolism Sepsis flu, covid. Data reviewed: vital signs, nurses notes. Consideration of Admission/Observation pt will be transferred for higher level of care. Management of patient was discussed with the following: Curtain Framer: Dr Saldana recommends transfer. 10/20 00:15 Management of patient was discussed with the following: Dr Noyloa at [facility] kb requests that I consult his radiographic technologist prior to accepting. . 00:51 Management of patient was discussed with the following: Dr Pulliam accepts pt for kb transfer to CCU at [facility]. 10/19 19:00 Order name: Blood Culture Adult (2) 10/19 19:00 Order name: CBC with Diff; Complete Time: 20:27 10/19 19:00 Order name: CMP; Complete Time: 20:33 10/19 19:00 Order name: Lactate w/ 2H reflex if indic.; Complete Time: 20:52 kb 10/19 19:00 Order name: Protime (+inr); Complete Time: 20:27 kb 10/19 19:00 Order name: Ptt, Activated; Complete Time: 20:27 kb 10/19 19:00 Order name: D-Dimer; Complete Time: 20:27 kb 10/19 19:00 Order name: Flu; Complete Time: 20:33 kb 10/19 19:00 Order name: SARS RAPID; Complete Time: 20:29 kb 12 20:16 Order name: Glucose, Ancillary Testing; Complete Time: 20:27 EDMS 12 21:52 Order name: BNP; Complete Time: 23:17 kb 12 22:11 Order name: Troponin High Sensitivity; Complete Time: 23:17 EDMS 12 19:00 Order name: Chest Single View XRAY; Complete Time: 20:27 kb 12 20:28 Order name: Chest For PE Angio CT; Complete Time: 21:51 sb4 10/19 22:12 Order name: BIPAP kb 10/19 19:00 Order name: EKG; Complete Time: 19:01 kb 10/19 19:00 Order name: Accucheck; Complete Time: 20:09 kb 10/19 19:00 Order name: Cardiac monitoring; Complete Time: 19:37 kb 10/19 19:00 Order name: EKG - Nurse/Tech; Complete Time: 19:50 kb 10/19 19:00 Order name: IV Saline Lock - Large Bore; Complete Time: 20:00 kb 10/19 19:00 Order name: Labs collected and sent; Complete Time: 20:09 kb 10/19 19:00 Order name: O2 Per Protocol; Complete Time: 19:54 kb 10/19 19:00 Order name: O2 Sat Monitoring; Complete Time: 19:54 kb 10/19 19:00 Order name: Vital Signs; Complete Time: 19:54 kb EC/12 23:19 Rate is 84 beats/min. Rhythm is regular. QRS [place] is Normal. IN interval is normal at kb 150 msec. QRS interval is normal at 90 msec. QT interval is normal at 439 msec. Administered Medications: 20:45 Drug: MethylPrednisoLONE IVP 125 mg Route: IVP; Site: left antecubital; mb9 21:55 Follow up: Response: No adverse reaction mb9 20:50 Drug: Albuterol Inhalation 2.5 mg Route: Inhalation; mb9 20:50 Drug: Ipratropium Inhalation Aerosol 0.5 mg Route: Inhalation; mb9 20:50 Drug: Ativan IVP 0.5 mg Route: IVP; Site: left antecubital; mb9 21:55 Follow up: Response: No adverse reaction mb9 Disposition Summary: 10/19/22 23:17 Transfer Ordered Transfer Location: [facility] kb Reason: Higher level of care kb Condition: Fair kb Problem: new kb Symptoms: are unchanged kb Accepting Physician: Dr Pulliam(10/20/22 01:25) kd3 Diagnosis - Pericardial effusion (noninflammatory) kb Discharge Instructions: - Discharge Summary Sheet as7 Forms: - Medication Reconciliation Form kb - SBAR form as7 Signatures: Dispatcher [employer] EDKristen Zaidi, PROCESS LINE OPERATOR-C PROCESS LINE OPERATOR-CkAyala Teague RN RN Marisela Adams RN RN kd3 Shannon Nuñez RN RN mb9 Corrections: (The following items were deleted from the chart) 22:11 21:57 Troponin High Sensitivity+C.LAB.BRZ ordered. EDTX EDMS 10/20 00:51 06 23:17 Dr michelle martinez 10/20 01:25 00:51 Dr Shasha martinez kd3
[2022-10-20 03:37] VITALS: TEMP 99.8; O2SAT 98
[2022-10-20 03:38] VITALS: BP 114/70
--- NOTE | 2022-10-21 08:21 | EKG ---
Test Date: 2022-10-19 Test Time: 19:45:03 Raw Cheese Worker: ROSALIA MEASUREMENT RESULTS: Intervals: Rate: 84 ND: 150 QRSD: 90 QT: 372 QTc: 439 [place]: P: 26 ND: 150 QRS: -58 T: 66 INTERPRETIVE STATEMENTS: Normal sinus rhythm Left axis deviation Low voltage QRS Inferior infarct, age undetermined Abnormal ECG Compared to ECG 06/08/2020 13:30:39 No significant changes Electronically Signed On 10-21-22 08:18:09 CDT by Derik Mata
== END 2022-10-20 01:25 | disposition short-term general hospital (02) ==
LOC: ER 18:16
DX: I31.39 Other pericardial effusion (noninflammatory) (principal); I10 Essential (primary) hypertension; E78.00 Pure hypercholesterolemia, unspecified; Z20.822 Contact with and (suspected) exposure to COVID-19; Z88.0 Allergy status to penicillin
CPT/HCPCS: 93005; 87040 ×2; 85025; 36415; 85610; 82947; 85379; 83605; 85730; 84484; 80053; 83880; 87804 ×2; 71275; 71045; 96375; 96374; 99285; 87811; 94660; Q9967; J7613; J7614; J2930

== ENCOUNTER 2023-01-19 05:30 | Observation (INO) | payer OTHER ==
[2023-01-18 16:08] LABS: Hematocrit 38.5 % (36.0-45.0); MCV 86.4 fL (80-100); MPV 7.8 fL (7.6-11.3); Platelets 205 thou/uL (152-406); RBC Red Blood Cell Count 4.45 M/uL (3.86-4.86)
[2023-01-18 16:14] LABS: Protime INR 1.04
[2023-01-18 16:24] LABS: Specific Gravity 1.026 (1.005-1.030); Urine Bacteria <20 /HPF (<20); Urine Bilirubin NEGATIVE (Negative); Urine Blood Negative (Negative); Urine Clarity Extremely Turbid (Clear); Urine Color Yellow (Yellow); Urine Glucose NEGATIVE (Negative); Urine Mucus 1+ /HPF (None Seen); Urine Protein 1+ (Negative); Urine Urobilinogen Normal (Normal); Urine pH 6.5 (5.0-7.0)
[2023-01-18 16:30] LABS: Albumin 3.8 g/dL (3.4-5.0); Bilirubin Total 0.5 mg/dL (0.2-1.0); Protein, Total 8.2 g/dL (6.4-8.2)
[2023-01-19] MEDS ORDERED: CELECOXIB 100 MG CAPSULE ONE (05:54)
[2023-01-19] MEDS ORDERED: Oxycodone HCl/Acetaminophen 1 TAB TAB ONE (05:55)
[2023-01-19] MEDS ORDERED: Ringers Lactate 1,000 ML IV ONE ×2 (05:55→10:22)
[2023-01-19] MEDS ORDERED: ACETAMINOPHEN 500 MG TAB ONE (05:55)
[2023-01-19] MEDS ORDERED: CLINDAMYCIN 900MG/D5W 900 MG/50 ML IVPB IV ONE (05:55)
[2023-01-19] MEDS ORDERED: GABAPENTIN 100 MG CAP ONE (05:55)
[2023-01-19] MEDS ORDERED: KETOROLAC 30 MG/ML INJ ONE (06:19)
[2023-01-19] MEDS ORDERED: FENTANYL CITR 100 MCG/2 ML ONE ×2 (06:19→08:18)
[2023-01-19] MEDS ORDERED: KETAMINE HCL IN 0.9 % NACL 50 MG/5 ML SYRINGE IV ONE (06:19)
[2023-01-19] MEDS ORDERED: MIDAZOLAM HCL 2 MG/2 ML INJ ONE (06:19)
[2023-01-19] MEDS ORDERED: LIDOCAINE 2% MPF 5 ML VIAL ONE ×2 (06:19→06:26)
[2023-01-19] MEDS ORDERED: propofoL 200 MG/20 ML VIAL IV ONE (06:19)
[2023-01-19] MEDS ORDERED: dexAMETHasone 4 MG/ML VIAL ONE (06:26)
[2023-01-19] MEDS ORDERED: EPINEPHRINE/PF 1 MG/ML AMP ONE (06:26)
[2023-01-19] MEDS ORDERED: BUPIVACAINE 0.25% PF 30 ML VIAL ONE (06:27)
[2023-01-19] MEDS ORDERED: DEXMEDETOMIDINE HCL 200 MCG/2 ML VIAL ONE (06:28)
[2023-01-19] MEDS ORDERED: MAGNESIUM SULFATE 1 gm IVPB 1 GM/100 ML BAG IV ONE (06:37)
[2023-01-19] MEDS: TRANEXAMIC ACID 1,000 MG/10 ML VIAL IV ONE ×2 (07:30→09:30)
[2023-01-19] MEDS ORDERED: ONDANSETRON 4 MG/2 ML VIAL IV PRN (09:41)
[2023-01-19] MEDS ORDERED: DOCUSATE NA 100 MG CAP PO PRN (09:41)
[2023-01-19] MEDS ORDERED: HYDROCODONE/APAP 7.5/325 MG TAB PO PRN (09:41)
--- NOTE | 2023-01-19 09:49 | P.BOP ---
Preoperative diagnosis: left knee arthritis Postoperative diagnosis: same Primary procedure: left total knee arthoplasty Estimated blood loss: 100 ccs Anesthesia: General Complications: None Transferred to: Recovery Room Condition: Good
[2023-01-19] MEDS ORDERED: MORPHINE 4 MG/ML SYR ONE (10:33)
--- NOTE | 2023-01-19 10:38 | OP ---
Date of Procedure: 01/19/2023 Surgeon: Young Mims MD Preoperative Diagnosis: Left knee arthritis. Postoperative Diagnosis: Left knee arthritis. Procedure: Left total knee arthroplasty using the [employer] Vanguard system. Estimated Blood Loss: 100 cc. Complications: There were no complications. Indications For Operation: Ms. Foreman is a 62-year-old female, who unfortunately suffering from debili tating arthritis and pain from her left knee. She has had multiple treatments all of which have fail ed to relieve her debilitating pain and risks, benefits, and alternatives to different methods of chuyita ating this were discussed with her and the patient opts for total knee arthroplasty. Risks, benefits , and alternatives of this particular procedure are discussed with her as well. She states she under stands things as presented and wishes to proceed. Description Of Procedure: The patient has a block placed in the holding area and then was taken to [facility] operating room, placed in supine position. General anesthesia was easily obtained by Anesthesia s tafgillian. Following this, a well-padded tourniquet was placed on the superior left thigh. Left lower ex tremity was then prepped and draped in the usual sterile fashion. After this, the leg was then eleva yue, gently exsanguinated and the knee was bent. Tourniquet was raised. A standard anterior incisio n was taken down carefully through the skin and soft tissues. Meticulous hemostasis being maintained using Bovie electrocautery. This leads to appropriate level, which was then exploited and allowed f or visualization of the extensor mechanism. A standard medial parapatellar arthrotomy was then perfo rmed without difficulty. Some fat pad was removed as well as the anterior cruciate ligament in the m edial and lateral menisci. The knee was placed in flexion with the patella everted and an intramedul bill alignment guide was placed without difficulty. A distal cut was made. This was sized to a size 72.5. The remainder of the femoral cuts were then made. Attention was then turned to the tibia and it was cut in standard fashion. It appears to align well and is appropriately sized. It was then t rialed and comes to full extension and appears to be balanced in both flexion and extension. The wou nd was irrigated and attention was turned to the patella, which was then calipered and cut with a new saw. The patella button was placed. The knee was brought through range of motion, which demonstrat es no abnormal tracking and appears to glide well. After this, the trials were removed and the box w as cut for the femur. The tibia was punched. Bone plug was placed. The final components with the e xception of the polyethylene were then cemented using standard cementing technique. It was brought t hrough extension while the cement was allowed to harden. After this was brought through range of mot ion, the patella appears to glide well. After this, the knee was copiously irrigated and cleaned as the final polyethylene PS was then placed. A locking bar was placed. It does appear to be stable in flexion and extension. Good motion of the patella. It was again irrigated and the fascia was close d in a watertight fashion using heavy Ethibond sutures. This was followed by irrigation and closure of the skin using Vicryl followed by hoda. The patient was then placed in a well-padded sterile d ressing, awakened, and taken to the recovery room. There were no complications. /PHUONG Voice ID: [id number] Report ID: [id number]
--- OUTSIDE RECORDS SUMMARY | 2023-01-19 11:01 | XMS REPORT | Continuity of Care Document ---
:1960 Author Organization [facility] t Address [address] [place] [address] Care Team Providers Name Role Phone Asked, No Pcp Primary Care Physician Unavailable ADDIS PULLIAM Attending Clinician Unavailable PRECIOUS CHAVARRIA Attending Clinician Unavailable TIMOTHY MCKOY Attending Clinician Unavailable JULIO STEVENS Attending Clinician Unavailable Timothy Mckoy MD Attending Clinician Lab, Ang - Db Attending Clinician Unavailable Julio Stevens MD Attending Clinician 2, Adc Lab Attending Clinician Unavailable Doctor Unassigned, [place] Attending Clinician Unavailable LEANNE HAN Attending Clinician Unavailable Leanne Han NP Attending Clinician JANIYA ISBELL Attending Clinician Unavailable Addis Pulliam MD Attending Clinician Jeanmarie Velarde MD Attending Clinician Janiya Isbell MD Attending Clinician Meryl Barlow Attending Clinician Unavailable Yohannes Cope Attending Clinician Jose Feng Attending Clinician Triston Jane Attending Clinicia n Shamar Gunderson Attending Clinician Reece Remy Attending Clinician ADDIS PULLIAM Admitting Clinician Unavailable JULIO STEVENS Admitting Clinician Unavailable Meryl Barlow Admitting Clinician Unavailable Physician, No Primary or Family Admitting Clinician UnavailYohannes Peterson Admitting Clinician Triston Jane Admitting Clinicia n Payers Payer Name Policy Type Policy Number Effective Date Expiration Date [facility] [id number] 2022 CHOICE EXCHANGE 00:00:00 [employer] COMMERCIAL [id number] 2022 00:00:00 [facility] [id number] 2014 00:00:00 Problems Condition Condition Condition Status Onset Resolution Last Treating Co mments Source Name Details Category Date Date Treatment Clinician Date Suspected Suspected Disease [facility]ur[facility] 10[facility]29 [facility] apnea apnea [facility] Medical 00 Center Class 3 Class [address] [facility] severe severe nce 10-29 [facility] obesity obesity 00:00: Medical with with 00 Center serious serious comorbidit comorbidit y and body y and body mass index mass index (BMI) of (BMI) of 45.0 to 45.0 to 49.9 in 49.9 in adult adult Acute Acute Disease Active [facility] renal renal 10-29 [facility] failure failure 00:00: Medical superimpos superimpos 00 Ce nter ed on ed on stage 2 stage 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 Severe Severe Disease Recurre [facility] hypothyroi hypothyroi nce 10-28 [facility] kes dism dism 00:00: Medical 00 Center Acute on Acute on Disease [facility] chronic chronic 10[facility]28 [facility] diastolic diastolic 00:00: Medi bryant (congestiv (congestiv 00 Ce nter e) heart e) heart failure failure Acute Acute Disease Active [facility] respirator respirator 6-21 [facility] kes y failure y failure 00:00: Medi bryant with with 00 Center hypoxia hypoxia POSSIBLE POSSIBLE Diagnosis Active 2015-09-25 Memoria STROKE STROKE 09-24 19:24:00 l Active 00:00: Venkatesh 09/25/2015 00 [facility] HYPOTENSIO HYPOTENSI Diagnosis Active 2015-09-26 Memoria N, ON, 09-24 18:49:00 l DIZZINESS DIZZINESS 00:00: Herm kevin Active 09/25/2015 [facility] G81.91 G81.91 Diagnosis Active 2015-09-12 M emoria Active 08-27 08:21:00 l 08/28/2015 00:00: Rajat conde [address] RIGHT SIDE RIGHT Diagnosis Active 2015-08-07 [facility]oria WEAKNESS SIDE 08-06 17:53:00 l WEAKNESS 00:00: Venkatesh Active 08/07/2015 [facility] CVA CVA Diagnosis Active 2016-01-31 Mem oria Active 08-06 15:41:00 l 08/07/2015 00:00: Rajat conde [address] CHEST PAIN CHEST Diagnosis Active 2016-01-31 Memoria PAIN 07-06 15:36:00 l Active 15:30: Venkatesh 07/06/2015 00 [facility] HYPERTENSI HYPERTENS Diagnosis Active 2016-01-31 Memoria ON ION Active 06-21 15:33:00 l 06/21/2015 00:00: Rajat conde [address] Anxiety Anxiety Problem Resolve 2015-09-29 M emoria (finding) (finding) d 02:27:42 l Resolved Venkatesh Problem 09/29/2015 [facility], LIZ Riddle,[facility] Gastritis Gastritis Problem Resolve 2015-09-29 Memoria (disorder) (disorder) d 02:27:42 l Resolved [place] Problem 09/29/2015 [facility], LIZ Riddle,[facility] Hyperchole Hyperchol Problem Resolve 2015-09-29 Memoria sterolemia esterolemi d 02:27:42 l (disorder) osei conde (disorder) Resolved Problem 09/29/2015 [facility], LIZ Riddle,[facility] Hypertensi Hypertens Problem Resolve 2015-09-29 Memoria ve krystian d 02:27:42 l disorder, disorder, Herm kevin systemic systemic arterial arterial (disorder) (disorder) Resolved Problem 09/29/2015 [facility], LIZ Riddle,[facility] Major Major Problem Resolve 2015-09-29 Vic josue depressive depressive d 02:27:42 l disorder disorder Rajat n (disorder) (disorder) Resolved Problem 09/29/2015 [facility], LIZ Riddle,[facility] Rheumatoid Rheumatoi Problem Resolve 2015-09-29 Memoria arthritis d d 02:27:42 l (disorder) arthritis Her briggs (disorder) Resolved Problem 09/29/2015 [facility], LIZ Riddle,[facility] Suicidal Suicidal Problem Resolve 2015-09-29 Memoria thoughts thoughts d 02:27:42 l (finding) (finding) Herm kevin Resolved Problem 09/29/2015 [facility], LIZ Riddle,[facility] Depressive Depressiv Problem Resolve 2015-09-29 Memoria disorder e disorder d 02:27:42 l (disorder) (disorder) He rmann Resolved Problem 09/29/2015 [facility], LIZ Riddle,[facility] Optic Optic Problem Resolve 2015-09-29 Vic josue neuritis neuritis d 02:27:42 l (disorder) (disorder) He rmann Resolved Problem 09/29/2015 [facility], LIZ Riddle,[facility] Pericardia Pericardia Disease Active [facility] l effusion l effusion Yumiko kes due to due to Medical hypothyroi hypothyroi Ce nter dism dism History of Past Illness Condition Condition Condition Status Onset Resolution Last Treating Co mments Source Name Details Category Date Date Treatment Clinician Date Discharge Discharge Problem 2015-07-09 2015-07-09 Memoria Diagnosis: Diagnosis: 2 02:29:57 02:29:57 l Anxiety in Anxiety in 06:00: He jason acute acute 00 stress stress reaction reaction 07/06/2015 07/09/2015 [facility] Discharge Discharge Problem 2015-07-09 2015-07-09 Memoria Diagnosis: Diagnosis: 2 02:29:57 02:29:57 l Left-sided Left-sided 06:00: He rmann chest wall chest wall 00 pain pain 07/06/2015 07/09/2015 [facility] Discharge Discharge Problem 2015-06-24 2015-06-24 Memoria Diagnosis: Diagnosis: 2- 04:24:51 04:24:51 l Anxiety Anxiety 06:00: Venkatesh 06/21/2015 00 06/24/2015 [facility] Discharge Discharge Problem 2015-06-24 2015-06-24 Memoria Diagnosis: Diagnosis: 2- 04:24:51 04:24:51 l Benign Benign 06:00: Venkatesh hypertensi hypertensi 00 on on 06/21/2015 6 [facility] Allergies, Adverse Reactions, Alerts Allergy Allergy Status Severity Reaction(s) Onset Inactive Treating Comm ents Source Name Type Date Date Clinician PENICILL Drug Active Rash 2022-0 Univers INS Class 7-27 ity of 00:00: [place] 00 [facility] Penicill Propensi Active Rash 2022-0 Univer s ins ty to 7-27 ity of adverse 00:00: [place] reaction 00 Medical s Branch GUAIFENE Allergy Active High Anaphylaxis 2022-0 SL EH SIN 6-27 00:00: 00 Guaifene Drug Active Anaphylaxis 2022-[address] [facility] [facility] sin Allergy 6-27 throat [facility] 00:[facility]: Medical 00 Center PENICILL Allergy Active 2022-[address] [facility] IN 6-13 [facility] 00:00: Medical 00 Center Penicill Propensi Active 2022-[address] in ty to 6-13 [facility] adverse 00:00: Medical reaction 00 Center s PENICILL Allergy Active 2020-[address] INS 1-30 [facility] 00:00: Medical 00 Center Penicill Drug Active 2020-[address] ins Allergy 1-30 reaction( [facility] 00:00: s): Medical 00 H[facility] h NO KNOWN Allergy Active [facility] ALLERGIE S NO KNOWN Drug Active Univers ALLERGIE Class ity of S [facility] Mucinex Mucinex Active Memoria l Venkatesh penicill penicill Active Memori a ins ins l [place] Family History Family Member Diagnosis Comments Start Date Stop Date Source Natural father Cancer [facility] Social History Social Habit Start Date Stop Date Quantity Comments Source Gender [facility] Sexual orientation [facility] Last Year Tobacco use and 2022-12-03 2022-12-03 Smokeless Universit y of exposure 00:00:00 00:00:00 tobacco non-user [facility] dical [place] History of Social 2022-12-03 2022-12-03 Univers ity of function 00:00:00 00:00:00 [facility] Alcohol intake 2022-11-03 2022-11-[address] [facility] 00:00:00 00:00:00 non-drinker Medical Cente r (finding) History [facility] 2022-10-24 2022-10-[address] [facility] Unable to 00:00:00 00:00:00 Medical Center Pay History [facility] 2022-10-24 2022-10-[address] [facility] 00:00:00 00:00:00 Medical Ce nter Lived Social History 2015-09-26 2015-09-26 [facility] 00:52:19 00:52:19 Sex [birth year] At [birth year] VIRGIL Mcfarland kes 00:00:00 00:00:00 Medical Center Smoking Status Start Date Stop Date Source Tobacco smoking consumption Meth [facility] unknown Never smoked tobacco [facility] Medications Ordered Filled Start Stop Current Ordering Indication Dosage Frequency Signature Comments Components Source Medication Medication Date Date Medication? Clinician (SIG) Name Name levothyroxi 2022- No 200ug Take 1 Un suly ne 200 mcg 8-16 08-16 tablet by ity of tablet 10:02: 00:00 mouth [place] 39 :00 every Medical morning. Branch levothyroxi Yes 175ug Take 1 Uni vers ne 175 mcg 8-16 tablet by ity of tablet 00:00: mouth [place] 00 every Medical morning. Branch sulfur 2022- No [id number] 5mL 5 mL, Univ ers hexafluorid 12-16 Intravenou i ty of e microsphr 21:30: 21:20 s, ONCE, 1 [place] (LUMASON) 00 :00 dose, On Medica l injection 5 Wed12/16/22 Br anch mL at 1630, Routine
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 Branch colchicine 2023-0 2023- No .6mg Take 1 Univ ers 0.6 mg 7-27 07-27 tablet by ity of tablet 15:24: 00:00 mouth in [place] 13 :00 the Medical morning. Branch colchicine 2023-0 2023- No .6mg Take 1 Univ ers 0.6 mg 7-27 -27 tablet by ity of tablet 15:24: 00:00 mouth in [place] 13 :00 the Medical morning. Branch empaglifloz 2023-0 2023- No 10mg Take 1 Uni vers in 10 mg 7-27 07-27 tablet by ity o f 15:24: 00:00 mouth in [place] 06 :00 the Medical morning. Branch empaglifloz 2023-0 2023- No 10mg Take 1 Uni vers in 10 mg 7-27 07-27 tablet by ity o f 15:24: 00:00 mouth in [place] 06 :00 the Medical morning. Branch empaglifloz 2023-0 2023- No 10mg Take 1 Uni vers in 10 mg 7-27 07-27 tablet by ity o f 15:24: 00:00 mouth in [place] 06 :00 the Medical morning. Branch levothyroxi 3-0 Yes 200ug Take 1 Uni vers ne 200 mcg 7-27 tablet by ity of tablet 15:11: mouth [place] [address] every Medical morning. Branch spironolact 3-0 Yes 25mg Take 1 Univ ers one 25 mg 7-27 tablet by ity o f tablet 15:11: mouth in [place] [address] the Medical morning. Branch buPROPion 2023-0 Yes 100mg Take 1 Unive rs 100 mg 7-27 tablet by ity of tablet 15:11: mouth in [place] [address] the Medical morning Branch and 1 tablet at noon and 1 tablet in the evening. Lamotrigine 2023-0 Yes Take by Uni vers 100 mg TR24 7-27 mouth ity of 15:11: daily. [place] [address] Medical Branch risperiDONE 2023-0 Yes 4mg Take 2 Univ ers 2 mg tablet 7-27 tablets by it y of 15:11: mouth [place] [address] every Medical evening. Branch venlafaxine 3-0 Yes 150mg Take 1 Uni vers XR 150 mg 7-27 capsule by ity of 24 hr 15:11: mouth [place] capsule daily with Medica l breakfast. Branch levothyroxi 2023-0 Yes 200ug Take 1 Uni vers ne 200 mcg 7-27 tablet by ity of tablet 15:11: mouth [place] [address] every Medical morning. Branch spironolact 2023-0 Yes 25mg Take 1 Univ ers one 25 mg 7-27 tablet by ity o f tablet 15:11: mouth in [place] [address] the Medical morning. Branch buPROPion 2023-0 Yes 100mg Take 1 Unive rs 100 mg 7-27 tablet by ity of tablet 15:11: mouth in [place] [address] the Medical morning Branch and 1 tablet at noon and 1 tablet in the evening. Lamotrigine 3-0 Yes Take by Uni vers 100 mg TR24 7-27 mouth ity of 15:11: daily. [place] [address] Medical Branch risperiDONE 2023-0 Yes 4mg Take 2 Univ ers 2 mg tablet 7-27 tablets by it y of 15:11: mouth [place] [address] every Medical evening. Branch venlafaxine 3-0 Yes 150mg Take 1 Uni vers XR 150 mg 7-27 capsule by ity of 24 hr 15:11: mouth [place] capsule daily with Medica l breakfast. Branch levothyroxi 3-0 Yes 200ug Take 1 Uni vers ne 200 mcg 7-27 tablet by ity of tablet 15:11: mouth [place] [address] every Medical morning. Branch spironolact 3-0 Yes 25mg Take 1 Univ ers one 25 mg 7-27 tablet by ity o f tablet 15:11: mouth in [place] [address] the Medical morning. Branch buPROPion 2023-0 Yes 100mg Take 1 Unive rs 100 mg 7-27 tablet by ity of tablet 15:11: mouth in [place] [address] the Medical morning Branch and 1 tablet at noon and 1 tablet in the evening. Lamotrigine 2023-0 Yes Take by Uni vers 100 mg TR24 7-27 mouth ity of 15:11: daily. [place] [address] Medical Branch risperiDONE 2023-0 Yes 4mg Take 2 Univ ers 2 mg tablet 7-27 tablets by it y of 15:11: mouth [place] 05 every Medical evening. Branch venlafaxine 2023-0 Yes 150mg Take 1 Uni vers XR 150 mg 7-27 capsule by ity of 24 hr 15:11: mouth [place] capsule 05 daily with Medica l breakfast. Branch levothyroxi 2023-0 Yes 200ug Take 1 Uni vers ne 200 mcg 7-27 tablet by ity of tablet 15:11: mouth [place] 05 every Medical morning. Branch spironolact 2023-0 Yes 25mg Take 1 Univ ers one 25 mg 7-27 tablet by ity o f tablet 15:11: mouth in [place] [address] the Medical morning. Branch buPROPion 2023-0 Yes 100mg Take 1 Unive rs 100 mg 7-27 tablet by ity of tablet 15:11: mouth in [place] [address] the Medical morning Branch and 1 tablet at noon and 1 tablet in the evening. Lamotrigine 2023-0 Yes Take by Uni vers 100 mg TR24 7-27 mouth ity of 15:11: daily. [place] [address] Medical Branch risperiDONE 2023-0 Yes 4mg Take 2 Univ ers 2 mg tablet 7-27 tablets by it y of 15:11: mouth [place] [address] every Medical evening. Branch venlafaxine 2023-0 Yes 150mg Take 1 Uni vers XR 150 mg 7-27 capsule by ity of 24 hr 15:11: mouth [place] capsule daily with Medica l breakfast. Branch levothyroxi 3-0 Yes 200ug Take 1 Uni vers ne 200 mcg 7-27 tablet by ity of tablet 15:11: mouth [place] [address] every Medical morning. Branch spironolact 2023-0 Yes 25mg Take 1 Univ ers one 25 mg 7-27 tablet by ity o f tablet 15:11: mouth in [place] [address] the Medical morning. Branch buPROPion 2023-0 Yes 100mg Take 1 Unive rs 100 mg 7-27 tablet by ity of tablet 15:11: mouth in [place] [address] the Medical morning Branch and 1 tablet at noon and 1 tablet in the evening. Lamotrigine 2023-0 Yes Take by Uni vers 100 mg TR24 7-27 mouth ity of 15:11: daily. [place] [address] Medical Branch risperiDONE 2023-0 Yes 4mg Take 2 Univ ers 2 mg tablet 7-27 tablets by it y of 15:11: mouth [place] [address] every Medical evening. Branch venlafaxine 2023-0 Yes 150mg Take 1 Uni vers XR 150 mg 7-27 capsule by ity of 24 hr 15:11: mouth [place] capsule daily with Medica l breakfast. Branch spironolact 3-0 Yes 25mg Take 1 Univ ers one 25 mg 7-27 tablet by ity o f tablet 15:11: mouth in [place] [address] the Medical morning. Branch buPROPion 2023-0 Yes 100mg Take 1 Unive rs 100 mg 7-27 tablet by ity of tablet 15:11: mouth in [place] [address] the Medical morning Branch and 1 tablet at noon and 1 tablet in the evening. Lamotrigine 2023-0 Yes Take by Uni vers 100 mg TR24 7-27 mouth ity of 15:11: daily. [address] Branch risperiDONE 3-0 Yes 4mg Take 2 Univ ers 2 mg tablet 7-27 tablets by it y of 15:11: mouth [place] [address] every Medical evening. Branch venlafaxine 3-0 Yes 150mg Take 1 Uni vers XR 150 mg 7-27 capsule by ity of 24 hr 15:11: mouth [place] capsule daily with Medica l breakfast. Branch levothyroxi 3-0 Yes 200ug Take 1 Uni vers ne 200 mcg 7-27 tablet by ity of tablet 15:11: mouth [place] [address] every Medical morning. Branch spironolact 3-0 Yes 25mg Take 1 Univ ers one 25 mg 7-27 tablet by ity o f tablet 15:11: mouth in [place] [address] the Medical morning. Branch buPROPion 3-0 Yes 100mg Take 1 Unive rs 100 mg 7-27 tablet by ity of tablet 15:11: mouth in [place] [address] the Medical morning Branch and 1 tablet at noon and 1 tablet in the evening. Lamotrigine 2023-0 Yes Take by Uni vers 100 mg TR24 7-27 mouth ity of 15:11: daily. [address] Branch risperiDONE 2023-0 Yes 4mg Take 2 Univ ers 2 mg tablet 7-27 tablets by it y of 15:11: mouth [place] [address] every Medical evening. Branch venlafaxine 2023-0 Yes 150mg Take 1 Uni vers XR 150 mg 7-27 capsule by ity of 24 hr 15:11: mouth [place] capsule 05 daily with Medica l breakfast. Branch levothyroxi 2023-0 Yes 200ug Take 1 Uni vers ne 200 mcg 7-27 tablet by ity of tablet 15:11: mouth [place] [address] every Medical morning. Branch spironolact 2023-0 Yes 25mg Take 1 Univ ers one 25 mg 7-27 tablet by ity o f tablet 15:11: mouth in [place] [address] the Medical morning. Branch buPROPion 2023-0 Yes 100mg Take 1 Unive rs 100 mg 7-27 tablet by ity of tablet 15:11: mouth in [place] [address] the Medical morning Branch and 1 tablet at noon and 1 tablet in the evening. Lamotrigine 2023-0 Yes Take by Uni vers 100 mg TR24 7-27 mouth ity of 15:11: daily. [place] [address] Medical Branch risperiDONE 2023-0 Yes 4mg Take 2 Univ ers 2 mg tablet 7-27 tablets by it y of 15:11: mouth [place] [address] every Medical evening. Branch venlafaxine 2023-0 Yes 150mg Take 1 Uni vers XR 150 mg 7-27 capsule by ity of 24 hr 15:11: mouth [place] capsule 05 daily with Medica l breakfast. Branch levothyroxi 2023-0 Yes 200ug Take 1 Uni vers ne 200 mcg 7-27 tablet by ity of tablet 15:11: mouth [place] [address] every Medical morning. Branch spironolact 3-0 Yes 25mg Take 1 Univ ers one 25 mg 7-27 tablet by ity o f tablet 15:11: mouth in [place] [address] the Medical morning. Branch buPROPion 2023-0 Yes 100mg Take 1 Unive rs 100 mg 7-27 tablet by ity of tablet 15:11: mouth in [place] [address] the Medical morning Branch and 1 tablet at noon and 1 tablet in the evening. Lamotrigine 2023-0 Yes Take by Uni vers 100 mg TR24 7-27 mouth ity of 15:11: daily. [place] [address] Medical Branch risperiDONE 2023-0 Yes 4mg Take 2 Univ ers 2 mg tablet 7-27 tablets by it y of 15:11: mouth [place] [address] every Medical evening. Branch venlafaxine 2023-0 Yes 150mg Take 1 Uni vers XR 150 mg 7-27 capsule by ity of 24 hr 15:11: mouth [place] capsule 05 daily with Medica l breakfast. Branch levothyroxi 2023-0 Yes 200ug Take 1 Uni vers ne 200 mcg 7-27 tablet by ity of tablet 15:11: mouth [place] [address] every Medical morning. Branch spironolact 2023-0 Yes 25mg Take 1 Univ ers one 25 mg 7-27 tablet by ity o f tablet 15:11: mouth in [place] [address] the Medical morning. Branch buPROPion 2023-0 Yes 100mg Take 1 Unive rs 100 mg 7-27 tablet by ity of tablet 15:11: mouth in [place] [address] the Medical morning Branch and 1 tablet at noon and 1 tablet in the evening. Lamotrigine 2023-0 Yes Take by Uni vers 100 mg TR24 7-27 mouth ity of 15:11: daily. [place] [address] Medical Branch risperiDONE 3-0 Yes 4mg Take 2 Univ ers 2 mg tablet 7-27 tablets by it y of 15:11: mouth [place] [address] every Medical evening. Branch venlafaxine 3-0 Yes 150mg Take 1 Uni vers XR 150 mg 7-27 capsule by ity of 24 hr 15:11: mouth [place] capsule daily with Medica l breakfast. Branch levothyroxi 2023-0 Yes 200ug Take 1 Uni vers ne 200 mcg 7-27 tablet by ity of tablet 15:11: mouth [place] [address] every Medical morning. Branch spironolact 3-0 Yes 25mg Take 1 Univ ers one 25 mg 7-27 tablet by ity o f tablet 15:11: mouth in [place] [address] the Medical morning. Branch buPROPion 2023-0 Yes 100mg Take 1 Unive rs 100 mg 7-27 tablet by ity of tablet 15:11: mouth in [place] [address] the Medical morning Branch and 1 tablet at noon and 1 tablet in the evening. Lamotrigine 2023-0 Yes Take by Uni vers 100 mg TR24 7-27 mouth ity of 15:11: daily. [place] [address] Medical Branch risperiDONE 2023-0 Yes 4mg Take 2 Univ ers 2 mg tablet 7-27 tablets by it y of 15:11: mouth [place] [address] every Medical evening. Branch venlafaxine 2023-0 Yes 150mg Take 1 Uni vers XR 150 mg 7-27 capsule by ity of 24 hr 15:11: mouth [place] capsule 05 daily with Medica l breakfast. Branch levothyroxi 2023-0 Yes 200ug Take 1 Uni vers ne 200 mcg 7-27 tablet by ity of tablet 15:11: mouth [place] [address] every Medical morning. Branch spironolact 2023-0 Yes 25mg Take 1 Univ ers one 25 mg 7-27 tablet by ity o f tablet 15:11: mouth in [place] [address] the Medical morning. Branch buPROPion 2022-0 Yes 100mg Take 1 Unive rs 100 mg 7-27 tablet by ity of tablet 15:11: mouth in [place] [address] the Medical morning Branch and 1 tablet at noon and 1 tablet in the evening. Lamotrigine 2022-0 Yes Take by Uni vers 100 mg TR24 7-27 mouth ity of 15:11: daily. [address] risperiDONE 2022-0 Yes 4mg Take 2 Univ ers 2 mg tablet 7-27 tablets by it y of 15:11: mouth [place] [address] every Medical evening. Branch venlafaxine 2022-0 Yes 150mg Take 1 Uni vers XR 150 mg 7-27 capsule by ity of 24 hr 15:11: mouth [place] capsule 05 daily with Medica l breakfast. Branch melatonin 2022-0 Yes 1{tbl} QD Take [address] 10 mg Chew 6-27 tablet by Luke s 12:37: mouth Medical 16 nightly. [place] nystatin, 0 Yes 1{appli Q.5D 1 [facility] bulk, 1 6-27 cation} applicatio Aileen es billion 00:00: n by Medical unit Powd 00 Miscellane Cent er ous route 2 (two) times daily. colchicine 2022-0 Yes .6mg QD Take 1 [facility] (COLCRYS) 6-23 tablet [facility] 0.6 mg 00:00: (0.6 mg Medical tablet 00 total) by Center mouth daily End 11/18/22 to complete 30 day treatment course. empaglifloz 2022-0 Yes 10mg QD Take [address] in 6-22 tablet (10 [facility] (JARDIANCE) 00:00: mg total) M edical 10 mg 00 by mouth Center tablet daily. levothyroxi 2022-0 Yes 200ug Take [address] [facility] ne 6-22 tablet [facility] (SYNTHROID, 00:00: (200 mcg Me dical LEVOTHROID) 00 total) by [facility] ter 200 MCG mouth tablet Every morning on an empty stomach. spironolact 2022-0 Yes 25mg QD Take [address] [facility] [facility] one 6-22 tablet (25 [facility] (ALDACTONE) 00:00: mg total) M edical 25 MG 00 by mouth Center tablet daily. risperiDONE 2022-0 Yes 4mg QD Take [address] (RisperDAL) 4-20 tablets (4 Y[facility]iko kes 2 MG tablet 00:00: mg total) M edical 00 by mouth Center nightly. lamoTRIgine 202-0 Yes 100mg QD Take [address] (LaMICtal) 4-19 tablet [facility] 100 MG 00:00: (100 mg Medical tablet 00 total) by Center mouth daily. venlafaxine 2022-0 Yes 225mg QD Take [address] (EFFEXOR-XR 4-19 mg by [facility] ) 150 MG 24 00:00: mouth in Me dical hr capsule 00 the Center morning. buPROPion 2022-0 Yes 100mg QD Take 1 [facility] (WELLBUTRIN 3-22 tablet [facility] ) 100 MG 00:00: (100 mg Medica l tablet 00 total) by Center mouth daily. Amlodipine Yes 0.5 tab, Mem oria 5 MG / 5-19 PO, Daily, l Hydrochloro 23:35: # 15 tab, H ermann thiazide 25 00 0 MG / Refill(s) valsartan 160 MG Oral Tablet [Exforge HCT 5/160/25] Amlodipine 0 Yes 0.5 tab, Mem oria 5 MG / 5-19 PO, Daily, l Hydrochloro 23:35: # 15 tab, H ermann thiazide 25 00 0 MG / Refill(s) valsartan 160 MG Oral Tablet [Exforge HCT 5/160/25] Amlodipine 2015-0 Yes 0.5 tab, Mem oria 5 MG / 5-19 PO, Daily, l Hydrochloro 23:35: # 15 tab, H ermann thiazide 25 00 0 MG / Refill(s) valsartan 160 MG Oral Tablet [Exforge HCT 5/160/25] Amlodipine 2015-0 Yes 0.5 tab, Mem oria 5 MG / 5-19 PO, Daily, l Hydrochloro 23:35: # 15 tab, H [place] thiazide 25 00 0 MG / Refill(s) valsartan 160 MG Oral Tablet [Exforge HCT 5/160/25] Amlodipine 0 Yes 0.5 tab, Mem oria 5 MG / 5-19 PO, Daily, l Hydrochloro 23:35: # 15 tab, [place] thiazide 25 00 0 MG / Refill(s) valsartan 160 MG Oral Tablet [Exforge HCT 5/160/25] Amlodipine 2016-0 Yes 0.5 tab, Mem oria 5 MG / 5-19 PO, Daily, l Hydrochloro 23:35: # 15 tab, H [place] thiazide 25 00 0 MG / Refill(s) valsartan 160 MG Oral Tablet [Exforge HCT 5/160/25] Amlodipine 2016-0 Yes 0.5 tab, Mem oria 5 MG / 5-19 PO, Daily, l Hydrochloro 23:35: # 15 tab, [place] thiazide 25 00 0 MG / Refill(s) valsartan 160 MG Oral Tablet [Exforge HCT 5/160/25] Amlodipine 2016-0 Yes 0.5 tab, Mem oria 5 MG / 5-19 PO, Daily, l Hydrochloro 23:35: # 15 tab, [place] thiazide 25 00 0 MG / Refill(s) valsartan 160 MG Oral Tablet [Exforge HCT 5/160/25] Amlodipine 2016-0 Yes 0.5 tab, Mem oria 5 MG / 5-19 PO, Daily, l Hydrochloro 23:35: # 15 tab, [place] thiazide 25 00 0 MG / Refill(s) valsartan 160 MG Oral Tablet [Exforge HCT 5/160/25] Risperdal No Notes: Memori a -19 (Same as: l 14:00: Risperdal) Omeprazole No 20 mg, Memor ia 5-19 Route: PO, l 14:00: Drug form: DRC, Daily, Dosing Weight 72.727, kg, Start date: 09/26/15 9:00:00 CDT, Duration: 30 day, Stop date: 10/25/15 9:00:00 CDT Protonix No Notes: Memoria 5-19 Tablet l 14:00: should not be chewed or crushed. (Same as: Protonix) Advair No 1 puff, Memoria Diskus 250 -19 Route: l mcg-50 mcg 14:00: INHALATION H ermann inhalation 00 , Drug powder Form: AERO, Dosing Weight 72.727, kg, BID, Start date: 09/26/15 9:00:00 CDT, Duration: 30 day, Stop date: 10/25/15 17:00:00 CDT Wellbutrin No Notes: Memor ia XL 5-19 (Same as: l 14:00: Wellbutrin [place] 00 XL) "Do Not Crush" Effexor XR No Notes: Do Me moria 5-19 not open, l 14:00: crush, or Venkatesh 00 chew. (Same As: Effexor XR) Risperdal No Notes: Memori a 5-19 (Same as: l 14:00: Risperdal) [place] 00 Omeprazole No 20 mg, Memor ia 5-19 Route: PO, l 14:00: Drug form: [place] 00 DRC, Daily, Dosing Weight 72.727, kg, Start date: 09/26/15 9:00:00 CDT, Duration: 30 day, Stop date: 10/25/15 9:00:00 CDT Protonix No Notes: Memoria 5-19 Tablet l 14:00: should not [place] 00 be chewed or crushed. (Same as: Protonix) Advair No 1 puff, Memoria Diskus 250 5-19 Route: l mcg-50 mcg 14:00: INHALATION [place] ermann inhalation 00 , Drug powder Form: AERO, Dosing Weight 72.727, kg, BID, Start date: 09/26/15 9:00:00 CDT, Duration: 30 day, Stop date: 10/25/15 17:00:00 CDT Wellbutrin No Notes: Memor ia XL 5-19 (Same as: l 14:00: Wellbutrin [place] 00 XL) "Do Not Crush" Effexor XR No Notes: Do Me moria 5-19 not open, l 14:00: crush, or Venkatesh 00 chew. (Same As: Effexor XR) Risperdal No Notes: Memori a 5-19 (Same as: l 14:00: Risperdal) Venkatesh 00 Omeprazole 0 No 20 mg, Memor ia 5-19 Route: PO, l 14:00: Drug form: [place] 00 DRC, Daily, Dosing Weight 72.727, kg, Start date: 09/26/15 9:00:00 CDT, Duration: 30 day, Stop date: 10/25/15 9:00:00 CDT Protonix 2015-0 No Notes: Memoria 5-19 Tablet l 14:00: should not [place] 00 be chewed or crushed. (Same as: Protonix) Advair No 1 puff, Memoria Diskus 250 5-19 Route: l mcg-50 mcg 14:00: INHALATION H ermann inhalation 00 , Drug powder Form: AERO, Dosing Weight 72.727, kg, BID, Start date: 09/26/15 9:00:00 CDT, Duration: 30 day, Stop date: 10/25/15 17:00:00 CDT Wellbutrin 2015-0 No Notes: Memor ia XL 5-19 (Same as: l 14:00: Wellbutrin [place] 00 XL) "Do Not Crush" Effexor XR No Notes: Do Me moria 5-19 not open, l 14:00: crush, or Venkatesh 00 chew. (Same As: Effexor XR) Risperdal No Notes: Memori a 5-19 (Same as: l 14:00: Risperdal) Omeprazole 0 No 20 mg, Memor ia 5-19 Route: PO, l 14:00: Drug form: [place] 00 DRC, Daily, Dosing Weight 72.727, kg, Start date: 09/26/15 9:00:00 CDT, Duration: 30 day, Stop date: 10/25/15 9:00:00 CDT Protonix 2015-0 No Notes: Memoria 5-19 Tablet l 14:00: should not Venkatesh 00 be chewed or crushed. (Same as: Protonix) Advair 2015-0 No 1 puff, Memoria Diskus 250 5-19 Route: l mcg-50 mcg 14:00: INHALATION [facility] ermann inhalation 00 , Drug powder Form: AERO, Dosing Weight 72.727, kg, BID, Start date: 09/26/15 9:00:00 CDT, Duration: 30 day, Stop date: 10/25/15 17:00:00 CDT Wellbutrin 2015-0 No Notes: Memor ia XL 5-19 (Same as: l 14:00: Wellbutrin Venkatesh 00 XL) "Do Not Crush" Effexor XR No Notes: Do Me moria 5-19 not open, l 14:00: crush, or Venkatesh 00 chew. (Same As: Effexor XR) Risperdal No Notes: Memori a 5-19 (Same as: l 14:00: Risperdal) [place] 00 Omeprazole 0 No 20 mg, Memor ia 5-19 Route: PO, l 14:00: Drug form: [place] 00 DRC, Daily, Dosing Weight 72.727, kg, Start date: 09/26/15 9:00:00 CDT, Duration: 30 day, Stop date: 10/25/15 9:00:00 CDT Protonix No Notes: Memoria 5-19 Tablet l 14:00: should not [place] 00 be chewed or crushed. (Same as: Protonix) Advair No 1 puff, Memoria Diskus 250 5-19 Route: l mcg-50 mcg 14:00: INHALATION H ermann inhalation 00 , Drug powder Form: AERO, Dosing Weight 72.727, kg, BID, Start date: 09/26/15 9:00:00 CDT, Duration: 30 day, Stop date: 10/25/15 17:00:00 CDT Wellbutrin 2015-0 No Notes: Memor ia XL 5-19 (Same as: l 14:00: Wellbutrin Venkatesh 00 XL) "Do Not Crush" Effexor XR 0 No Notes: Do Me moria 5-19 not open, l 14:00: crush, or Venkatesh 00 chew. (Same As: Effexor XR) Risperdal No Notes: Memori a 5-19 (Same as: l 14:00: Risperdal) [place] 00 Omeprazole 0 No 20 mg, Memor ia 5-19 Route: PO, l 14:00: Drug form: Venkatesh 00 DRC, Daily, Dosing Weight 72.727, kg, Start date: 09/26/15 9:00:00 CDT, Duration: 30 day, Stop date: 10/25/15 9:00:00 CDT Protonix 2015-0 No Notes: Memoria 5-19 Tablet l 14:00: should not Venkatesh 00 be chewed or crushed. (Same as: Protonix) Advair 2015-0 No 1 puff, Memoria Diskus 250 5-19 Route: l mcg-50 mcg 14:00: INHALATION H ermann inhalation 00 , Drug powder Form: AERO, Dosing Weight 72.727, kg, BID, Start date: 09/26/15 9:00:00 CDT, Duration: 30 day, Stop date: 10/25/15 17:00:00 CDT Wellbutrin 2015-0 No Notes: Memor ia XL 5-19 (Same as: l 14:00: Wellbutrin [place] 00 XL) "Do Not Crush" Effexor XR 2015-0 No Notes: Do Me moria 5-19 not open, l 14:00: crush, or [place] 00 chew. (Same As: Effexor XR) Risperdal 2015-0 No Notes: Memori a 5-19 (Same as: l 14:00: Risperdal) Venkatesh 00 Omeprazole No 20 mg, Memor ia 5-19 Route: PO, l 14:00: Drug form: [place] 00 DRC, Daily, Dosing Weight 72.727, kg, Start date: 09/26/15 9:00:00 CDT, Duration: 30 day, Stop date: 10/25/15 9:00:00 CDT Protonix 2015-0 No Notes: Memoria 5-19 Tablet l 14:00: should not [place] 00 be chewed or crushed. (Same as: Protonix) Advair 2015-0 No 1 puff, Memoria Diskus 250 5-19 Route: l mcg-50 mcg 14:00: INHALATION H ermann inhalation 00 , Drug powder Form: AERO, Dosing Weight 72.727, kg, BID, Start date: 09/26/15 9:00:00 CDT, Duration: 30 day, Stop date: 10/25/15 17:00:00 CDT Wellbutrin 2015-0 No Notes: Memor ia XL 5-19 (Same as: l 14:00: Wellbutrin [place] 00 XL) "Do Not Crush" Effexor XR 0 No Notes: Do Me moria 5-19 not open, l 14:00: crush, or Venkatesh 00 chew. (Same As: Effexor XR) Risperdal No Notes: Memori a 5-19 (Same as: l 14:00: Risperdal) [place] 00 Omeprazole 0 No 20 mg, Memor ia 5-19 Route: PO, l 14:00: Drug form: Venkatesh 00 DRC, Daily, Dosing Weight 72.727, kg, Start date: 09/26/15 9:00:00 CDT, Duration: 30 day, Stop date: 10/25/15 9:00:00 CDT Protonix 0 No Notes: Memoria 5-19 Tablet l 14:00: should not [place] 00 be chewed or crushed. (Same as: Protonix) Advair No 1 puff, Memoria Diskus 250 5-19 Route: l mcg-50 mcg 14:00: INHALATION H ermann inhalation 00 , Drug powder Form: AERO, Dosing Weight 72.727, kg, BID, Start date: 09/26/15 9:00:00 CDT, Duration: 30 day, Stop date: 10/25/15 17:00:00 CDT Wellbutrin 2015-0 No Notes: Memor ia XL 5-19 (Same as: l 14:00: Wellbutrin [place] 00 XL) "Do Not Crush" Effexor XR 2015-0 No Notes: Do Me moria 5-19 not open, l 14:00: crush, or Venkatesh 00 chew. (Same As: Effexor XR) Risperdal 0 No Notes: Memori a 5-19 (Same as: l 14:00: Risperdal) Venkatesh 00 Omeprazole 0 No 20 mg, Memor ia 5-19 Route: PO, l 14:00: Drug form: Venkatesh 00 DRC, Daily, Dosing Weight 72.727, kg, Start date: 09/26/15 9:00:00 CDT, Duration: 30 day, Stop date: 10/25/15 9:00:00 CDT Protonix No Notes: Memoria 5-19 Tablet l 14:00: should not [place] 00 be chewed or crushed. (Same as: Protonix) Advair No 1 puff, Memoria Diskus 250 5-19 Route: l mcg-50 mcg 14:00: INHALATION H ermann inhalation 00 , Drug powder Form: AERO, Dosing Weight 72.727, kg, BID, Start date: 09/26/15 9:00:00 CDT, Duration: 30 day, Stop date: 10/25/15 17:00:00 CDT Wellbutrin No Notes: Memor ia XL -19 (Same as: l 14:00: Wellbutrin [place] 00 XL) "Do Not Crush" Effexor XR No Notes: Do Me moria 5-19 not open, l 14:00: crush, or Venkatesh 00 chew. (Same As: Effexor XR) Cytomel No Notes: Memoria 5-19 (Same as: l 12:59: Cytomel) Venkatesh Cytomel No Notes: Memoria 5-19 (Same as: l 12:59: Cytomel) Venkatesh Cytomel No Notes: Memoria 5-19 (Same as: l 12:59: Cytomel) Venkatesh Cytomel No Notes: Memoria 5-19 (Same as: l 12:59: Cytomel) [place] Cytomel No Notes: Memoria 5-19 (Same as: l 12:59: Cytomel) [place] Cytomel No Notes: Memoria 5-19 (Same as: l 12:59: Cytomel) [place] 00 Cytomel No Notes: Memoria 5-19 (Same as: l 12:59: Cytomel) [place] Cytomel No Notes: Memoria 5-19 (Same as: l 12:59: Cytomel) [place] Cytomel No Notes: Memoria 5-19 (Same as: l 12:59: Cytomel) [place] liothyronin Yes 5 Memori a e sodium 5-19 microgram l 0.005 MG 12:56: = 1 tab, Queenie nn Oral Tablet 00 PO, Daily, [Cytomel] # 30 tab, 3 Refill(s) Levothyroxi 0 Yes 150 Memori a ne Sodium 5-19 microgram l 0.15 MG 12:56: = 1 tab, Rajat n Oral Tablet 00 PO, Daily, [Synthroid] Brand Name Necessary, # 30 tab, 3 Refill(s) liothyronin 0 Yes 5 Memori a e sodium 5-19 microgram l 0.005 MG 12:56: = 1 tab, Queen[place] nn Oral Tablet 00 PO, Daily, [Cytomel] # 30 tab, 3 Refill(s) Levothyroxi 0 Yes 150 Memori a ne Sodium 5-19 microgram l 0.15 MG 12:56: = 1 tab, Rajat n Oral Tablet 00 PO, Daily, [Synthroid] Brand Name Necessary, # 30 tab, 3 Refill(s) liothyronin Yes 5 Memori a e sodium 5-19 microgram l 0.005 MG 12:56: = 1 tab, Queen[place] nn Oral Tablet 00 PO, Daily, [Cytomel] # 30 tab, 3 Refill(s) Levothyroxi 0 Yes 150 Memori a ne Sodium 5-19 microgram l 0.15 MG 12:56: = 1 tab, Rajat n Oral Tablet 00 PO, Daily, [Synthroid] Brand Name Necessary, # 30 tab, 3 Refill(s) liothyronin 0 Yes 5 Memori a e sodium 5-19 microgram l 0.005 MG 12:56: = 1 tab, Queenie nn Oral Tablet 00 PO, Daily, [Cytomel] # 30 tab, 3 Refill(s) Levothyroxi 0 Yes 150 Memori a ne Sodium 5-19 microgram l 0.15 MG 12:56: = 1 tab, Rajat n Oral Tablet 00 PO, Daily, [Synthroid] Brand Name Necessary, # 30 tab, 3 Refill(s) liothyronin 0 Yes 5 Memori a e sodium 5-19 [...] a 5-19 Take 1 l 11:30: hour [place] 00 before or 2 hours after meal; [...] a 5-19 Take 1 l 11:30: hour [place] 00 before or 2 hours after meal; Enteral feeds may interefere with the absorption of this medication .(Same as:Levothr oid, Synthroid) Thyroxine No Notes: Memori a 5-19 Take 1 l 11:30: hour [place] 00 before or 2 hours after meal; Enteral feeds may interefere with the absorption of this medication .(Same as:Levothr oid, Synthroid) Thyroxine No Notes: Memori a 5-19 Take 1 l 11:30: hour [place] 00 before or 2 hours after meal; [...] Memoria 5-19 (Same as: l 02:00: Lipitor) Diazepam No Notes: Memoria 5-19 (Same as: l 02:00: Valium) Lipitor No Notes: Memoria 5-19 (Same as: l 02:00: Lipitor) Diazepam No Notes: Memoria 5-19 (Same as: l 02:00: Valium) Lipitor No Notes: Memoria 5-19 (Same as: l 02:00: Lipitor) Diazepam No Notes: Memoria 5-19 (Same as: l 02:00: Valium) Lipitor No Notes: Memoria 5-19 (Same as: l 02:00: Lipitor) Diazepam No Notes: Memoria 5-19 (Same as: l 02:00: Valium) Lipitor No Notes: Memoria 5-19 (Same as: l 02:00: Lipitor) Diazepam No Notes: Memoria 5-19 (Same as: l 02:00: Valium) Lipitor No Notes: Memoria 5-19 (Same as: l 02:00: Lipitor) Diazepam No Notes: Memoria 5-19 (Same as: l 02:00: Valium) Lipitor No Notes: Memoria 5-19 (Same as: l 02:00: Lipitor) Diazepam No Notes: Memoria 5-19 (Same as: l 02:00: Valium) Lipitor No Notes: Memoria 5-19 (Same as: l 02:00: Lipitor) Diazepam No Notes: Memoria 5-19 (Same as: l 02:00: Valium) Lipitor No Notes: Memoria 5-19 (Same as: l 02:00: Lipitor) [place] 00 Symbicort No Notes: Memori a 80/4.5 [...] 1,000 mL No 1,000 mL, M emoria 09-25 Rate: 125 l 01:27: ml/hr, [place] 00 Infuse over: 8 hr, Route: IV, Dosing Weight 72.727 kg, Total Volume: 1,000, Start date: 09/25/15 20:27:00 CDT, Duration: 30 day, Stop date: 10/25/15 20:26:00 CDT NS 1,000 mL 2016-0 No 1,000 mL, M emoria 5-19 Rate: 125 l 01:27: ml/hr, [place] 00 Infuse over: 8 hr, Route: IV, Dosing Weight 72.727 kg, Total Volume: 1,000, Start date: 09/25/15 20:27:00 CDT, Duration: 30 day, Stop date: 10/25/15 20:26:00 CDT NS 1,000 mL 2016-0 No 1,000 mL, M emoria 5-19 Rate: 125 l 01:27: ml/hr, [place] 00 Infuse over: 8 hr, Route: IV, Dosing Weight 72.727 kg, Total Volume: 1,000, Start date: 09/25/15 20:27:00 CDT, Duration: 30 day, Stop date: 10/25/15 20:26:00 CDT NS 1,000 mL 2016-0 No 1,000 mL, M emoria 5-19 Rate: 125 l 01:27: ml/hr, Venkatesh 00 Infuse over: 8 hr, Route: IV, Dosing Weight 72.727 kg, Total Volume: 1,000, Start date: 09/25/15 20:27:00 CDT, Duration: 30 day, Stop date: 10/25/15 20:26:00 CDT NS 1,000 mL 2016-0 No 1,000 mL, M emoria 5-19 Rate: 125 l 01:27: ml/hr, [place] 00 Infuse over: 8 hr, Route: IV, Dosing Weight 72.727 kg, Total Volume: 1,000, Start date: 09/25/15 20:27:00 CDT, Duration: 30 day, Stop date: 10/25/15 20:26:00 CDT NS 1,000 mL 2016-0 No 1,000 mL, M emoria 5-19 Rate: 125 l 01:27: ml/hr, Venkatesh 00 Infuse over: 8 hr, Route: IV, Dosing Weight 72.727 kg, Total Volume: 1,000, Start date: 09/25/15 20:27:00 CDT, Duration: 30 day, Stop date: 10/25/15 20:26:00 CDT NS 1,000 mL 2015- No 1,000 mL, M emoria 5-19 Rate: 125 l 01:27: ml/hr, Venkatesh 00 Infuse over: 8 hr, Route: IV, Dosing Weight 72.727 kg, Total Volume: 1,000, Start date: 09/25/15 20:27:00 CDT, Duration: 30 day, Stop date: 10/25/15 20:26:00 CDT NS 1,000 mL No 1,000 mL, M emoria 5-19 Rate: 125 l 01:27: ml/hr, [place] 00 Infuse over: 8 hr, Route: IV, Dosing Weight 72.727 kg, Total Volume: 1,000, Start date: 09/25/15 20:27:00 CDT, Duration: 30 day, Stop date: 10/25/15 20:26:00 CDT NS 1,000 mL No 1,000 mL, M emoria 5-19 Rate: 125 l 01:27: ml/hr, Venkatesh 00 Infuse over: 8 hr, Route: IV, Dosing Weight 72.727 kg, Total Volume: 1,000, Start date: 09/25/15 20:27:00 CDT, Duration: 30 day, Stop date: 10/25/15 20:26:00 CDT Acetaminoph No Notes: Do M emoria en 5-19 not exceed l 01:25: 4 gm/day. Venkatehs 00 (Same as: Tylenol) Morphine No Notes: Memoria 5-19 (Same l 01:25: as:MORPhin [place] 00 e Sulfate) Acetaminoph No Notes: Vic josue en 325 MG / 5-19 (Same as: l Hydrocodone 01:25: [place] Queenie nn Bitartrate 00 325/5) Do 5 MG Oral not exceed Tablet 4gm/day of acetaminop hen. Ondansetron No Notes: Vic josue 5-19 (Same as: l 01:25: Zofran) [place] 00 MEDICATION WASTE Product Size: 4 mg Product Wasted: ___ mg Docusate No Notes: Memoria 5-19 (Same as: l 01:25: Colace) [place] 00 (Do Not Crush) Acetaminoph No Notes: Do M emoria en 5-19 not exceed l 01:25: 4 gm/day. Venkatesh 00 (Same as: Tylenol) Morphine No Notes: Memoria 5-19 (Same l 01:25: as:MORPhin Venkatesh 00 e Sulfate) Acetaminoph No Notes: Vic josue en 325 MG / 5-19 (Same as: l Hydrocodone 01:25: [place] Queenie nn Bitartrate 00 325/5) Do 5 MG Oral not exceed Tablet 4gm/day of acetaminop hen. Ondansetron No Notes: Vic josue 5-19 (Same as: l 01:25: Zofran) Venkatesh 00 MEDICATION WASTE Product Size: 4 mg Product Wasted: ___ mg Docusate No Notes: Memoria 5-19 (Same as: l 01:25: Colace) Venkatesh 00 (Do Not Crush) Acetaminoph No Notes: Do M emoria en 5-19 not exceed l 01:25: 4 gm/day. [place] 00 (Same as: Tylenol) Morphine No Notes: Memoria 5-19 (Same l 01:25: as:MORPhin Venkatesh 00 e Sulfate) Acetaminoph No Notes: Vic josue en 325 MG / 5-19 (Same as: l Hydrocodone 01:25: [place] Queenie nn Bitartrate 00 325/5) Do 5 MG Oral not exceed Tablet 4gm/day of acetaminop hen. Ondansetron No Notes: Vic josue 5-19 (Same as: l 01:25: Zofran) [place] 00 MEDICATION WASTE Product Size: 4 mg Product Wasted: ___ mg Docusate No Notes: Memoria 5-19 (Same as: l 01:25: Colace) Venkatesh 00 (Do Not Crush) Acetaminoph No Notes: Do M emoria en 5-19 not exceed l 01:25: 4 gm/day. [place] 00 (Same as: Tylenol) Morphine No Notes: Memoria 5-19 (Same l 01:25: as:MORPhin [place] 00 e Sulfate) Acetaminoph No Notes: Vic josue en 325 MG / 5-19 (Same as: l Hydrocodone 01:25: [place] Queenie nn Bitartrate 00 325/5) Do 5 MG Oral not exceed Tablet 4gm/day of acetaminop hen. Ondansetron No Notes: Vic josue 5-19 (Same as: l 01:25: Zofran) [place] 00 MEDICATION WASTE Product Size: 4 mg Product Wasted: ___ mg Docusate No Notes: Memoria 5-19 (Same as: l 01:25: Colace) Venkatesh 00 (Do Not Crush) Acetaminoph No Notes: Do M emoria en 5-19 not exceed l 01:25: 4 gm/day. Venkatesh 00 (Same as: Tylenol) Morphine No Notes: Memoria 5-19 (Same l 01:25: as:MORPhin Venkatesh 00 e Sulfate) Acetaminoph No Notes: Vic josue en 325 MG / 5-19 (Same as: l Hydrocodone 01:25: [place] Queenie nn Bitartrate 00 325/5) Do 5 MG Oral not exceed Tablet 4gm/day of acetaminop hen. Ondansetron No Notes: Vic josue 5-19 (Same as: l 01:25: Zofran) Venkatesh 00 MEDICATION WASTE Product Size: 4 mg Product Wasted: ___ mg Docusate No Notes: Memoria 5-19 (Same as: l 01:25: Colace) Venkatesh 00 (Do Not Crush) Acetaminoph No Notes: Do M emoria en 5-19 not exceed l 01:25: 4 gm/day. Venkatesh 00 (Same as: Tylenol) Morphine No Notes: Memoria 5-19 (Same l 01:25: as:MORPhin [place] 00 e Sulfate) Acetaminoph No Notes: Vic josue en 325 MG / 5-19 (Same as: l Hydrocodone 01:25: [place] Queenie nn Bitartrate 00 325/5) Do 5 MG Oral not exceed Tablet 4gm/day of acetaminop hen. Ondansetron No Notes: Vic josue 5-19 (Same as: l 01:25: Zofran) Venkatesh 00 MEDICATION WASTE Product Size: 4 mg Product Wasted: ___ mg Docusate No Notes: Memoria 5-19 (Same as: l 01:25: Colace) [place] 00 (Do Not Crush) Acetaminoph No Notes: Do M emoria en 5-19 not exceed l 01:25: 4 gm/day. [place] 00 (Same as: Tylenol) Morphine No Notes: Memoria 5-19 (Same l 01:25: as:MORPhin Venkatesh 00 e Sulfate) Acetaminoph No Notes: Vic josue en 325 MG / 5-19 (Same as: l Hydrocodone 01:25: [place] Queenie nn Bitartrate 00 325/5) Do 5 MG Oral not exceed Tablet 4gm/day of acetaminop hen. Ondansetron No Notes: Vic josue 5-19 (Same as: l 01:25: Zofran) [place] 00 MEDICATION WASTE Product Size: 4 mg Product Wasted: ___ mg Docusate No Notes: Memoria 5-19 (Same as: l 01:25: Colace) Venkatesh 00 (Do Not Crush) Acetaminoph No Notes: Do M emoria en 5-19 not exceed l 01:25: 4 gm/day. [place] 00 (Same as: Tylenol) Morphine 2015- No Notes: Memoria 5-19 (Same l 01:25: as:MORPhin [place] 00 e Sulfate) Acetaminoph No Notes: Vic josue en 325 MG / 5-19 (Same as: l Hydrocodone 01:25: [place] Queenie nn Bitartrate 00 325/5) Do 5 MG Oral not exceed Tablet 4gm/day of acetaminop hen. Ondansetron 2015- No Notes: Vic josue 5-19 (Same as: l 01:25: Zofran) [place] 00 MEDICATION WASTE Product Size: 4 mg Product Wasted: ___ mg Docusate No Notes: Memoria 5-19 (Same as: l 01:25: Colace) [place] (Do Not Crush) Acetaminoph No Notes: Do M emoria en 5-19 not exceed l 01:25: 4 gm/day. [place] 00 (Same as: Tylenol) Morphine No Notes: Memoria 5-19 (Same l 01:25: as:MORPhin Venkatesh 00 e Sulfate) Acetaminoph No Notes: Vic josue en 325 MG / 5-19 (Same as: l Hydrocodone 01:25: [place] Queenie nn Bitartrate 00 325/5) Do 5 MG Oral not exceed Tablet 4gm/day of acetaminop hen. Ondansetron No Notes: Vic josue 5-19 (Same as: l :25: Zofran) 00 MEDICATION WASTE Product Size: 4 mg Product Wasted: ___ mg Docusate No Notes: Memoria 5-19 (Same as: l 01:25: Colace) Venkatesh (Do Not Crush) Risperidone Yes 2 mg [...] PO, l MEQ 00:53: BID, # 10 [place] Extended 00 tab, 0 Release Refill(s) Tablet [...] PO, l MEQ 00:53: BID, # 10 [place] Extended 00 tab, 0 Release Refill(s) Tablet [...] PO, l MEQ 00:53: BID, # 10 [place] Extended 00 tab, 0 Release Refill(s) Tablet [...] Rajat n [Risperdal] 00 tab, 0 Refill(s) Risperidone Yes 2 mg = 1 Me [...] 00 30 tab, 0 [Crestor] Refill(s) Advair 0 Yes 1 puff, Memoria Diskus 250 5-19 INHALATION l mcg-50 mcg 00:53: , BID, # 1 [place] inhalation 00 ea, 3 powder Refill(s) Potassium Yes 10 mEq = 1 Me moria Chloride 10 5-19 tab, PO, l MEQ 00:53: BID, # 10 [place] Extended 00 tab, 0 Release Refill(s) Tablet venlafaxine Yes 225 mg = 1 Memoria 225 mg oral 5-19 tab, PO, l tablet, 00:53: Daily, # Rajat n extended 00 30 tab, 0 release Refill(s) Rosuvastati 0 Yes 20 mg = 1 M emoria n calcium 5-19 tab, PO, l 20 MG Oral 00:53: Bedtime, # H ermann Tablet 00 30 tab, 0 [Crestor] Refill(s) Advair 2015-0 Yes 1 puff, Memoria Diskus 250 5-19 INHALATION l mcg-50 mcg 00:53: , BID, # 1 [place] inhalation 00 ea, 3 powder Refill(s) Potassium Yes 10 mEq = 1 Me moria Chloride 10 5-19 tab, PO, l MEQ 00:53: BID, # 10 [place] Extended 00 tab, 0 Release Refill(s) Tablet [...] PO, l MEQ 00:53: BID, # 10 [place] Extended 00 tab, 0 Release Refill(s) Tablet [...] 5-18 not exceed l 22:34: 4 gm/day. [place] 00 (Same as: Tylenol) Saline No Notes: Memoria Flush 0.9% 5-18 (Same as: l 22:34: BD Venkatesh 00 Posiflush) Acetaminoph Yes Notes: Do M emoria en 5-18 not exceed l 22:34: 4 gm/day. Venkatesh (Same as: Tylenol) Saline No Notes: [facility] Flush 0.9% 5-18 (Same as: l 22:34: BD [place] 00 Posiflush) Acetaminoph Yes Notes: Do M emoria en 5-18 not exceed l 22:34: 4 gm/day. Venkatesh (Same as: Tylenol) Saline No Notes: [facility] Flush 0.9% 5-18 (Same as: l 22:34: BD Venkatesh 00 Posiflush) Acetaminoph Yes Notes: Do M emoria en 5-18 not exceed l 22:34: 4 gm/day. [place] (Same as: Tylenol) Saline No Notes: [facility] Flush 0.9% 5-18 (Same as: l 22:34: BD Venkatesh 00 Posiflush) Acetaminoph Yes Notes: Do M emoria en 5-18 not exceed l 22:34: 4 gm/day. [place] (Same as: Tylenol) Saline No Notes: [facility] Flush 0.9% 5-18 (Same as: l 22:34: BD Venkatesh 00 Posiflush) Acetaminoph Yes Notes: Do M emoria en 5-18 not exceed l 22:34: 4 gm/day. [place] (Same as: Tylenol) Saline No Notes: [facility] Flush 0.9% 5-18 (Same as: l 22:34: BD [place] 00 Posiflush) Acetaminoph Yes Notes: Do M emoria en 5-18 not exceed l 22:34: 4 gm/day. Venkatesh (Same as: Tylenol) Saline No Notes: [facility] Flush 0.9% 5-18 (Same as: l 22:34: BD [place] 00 Posiflush) Acetaminoph Yes Notes: Do M emoria en -18 not exceed l 22:34: 4 gm/day. Venkatesh 00 (Same as: Tylenol) Saline No Notes: [facility] Flush 0.9% 5-18 (Same as: l 22:34: BD [place] 00 Posiflush) Acetaminoph Yes Notes: Do M emoria en -18 not exceed l 22:34: 4 gm/day. [place] 00 (Same as: Tylenol) Saline No Notes: [facility] Flush 0.9% 5-18 (Same as: l 22:34: BD [place] 00 Posiflush) Sodium No 1,000 mL, Memori a Chloride 5-18 Rate: 150 l 0.154 21:51: ml/hr, Venkatesh MEQ/ML 00 Infuse Injectable over: 6.7 Solution hr, Route: IV, Dosing Weight 72.727 kg, Total Volume: 1,000, Priority: STAT, Start date: 09/25/15 16:51:00 CDT, Duration: 1 doses or times, Stop date: 09/25/15 23:32:00 CDT Sodium 2015- No 1,000 mL, Memori a Chloride 5-18 Rate: 150 l 0.154 21:51: ml/hr, [place] MEQ/ML 00 Infuse Injectable over: 6.7 Solution hr, Route: IV, Dosing Weight 72.727 kg, Total Volume: 1,000, Priority: STAT, Start date: 09/25/15 16:51:00 CDT, Duration: 1 doses or times, Stop date: 09/25/15 23:32:00 CDT Sodium No 1,000 mL, Mem[facility] a Chloride 5-18 Rate: 150 l 0.154 21:51: ml/hr, Venkatesh MEQ/ML 00 Infuse Injectable over: 6.7 Solution hr, Route: IV, Dosing Weight 72.727 kg, Total Volume: 1,000, Priority: STAT, Start date: 09/25/15 16:51:00 CDT, Duration: 1 doses or times, Stop date: 09/25/15 23:32:00 CDT Sodium 2016-0 No 1,000 mL, Memori a Chloride 5-18 Rate: 150 l 0.154 21:51: ml/hr, [place] MEQ/ML 00 Infuse Injectable over: 6.7 Solution hr, Route: IV, Dosing Weight 72.727 kg, Total Volume: 1,000, Priority: STAT, Start date: 09/25/15 16:51:00 CDT, Duration: 1 doses or times, Stop date: 09/25/15 23:32:00 CDT Sodium 2016-0 No 1,000 mL, [facility] a Chloride 5-18 Rate: 150 l 0.154 21:51: ml/hr, Venkatesh MEQ/ML 00 Infuse Injectable over: 6.7 Solution hr, Route: IV, Dosing Weight 72.727 kg, Total Volume: 1,000, Priority: STAT, Start date: 09/25/15 16:51:00 CDT, Duration: 1 doses or times, Stop date: 09/25/15 23:32:00 CDT Sodium 2016-0 No 1,000 mL, [facility] a Chloride 5-18 Rate: 150 l 0.154 21:51: ml/hr, [place] MEQ/ML 00 Infuse Injectable over: 6.7 Solution hr, Route: IV, Dosing Weight 72.727 kg, Total Volume: 1,000, Priority: STAT, Start date: 09/25/15 16:51:00 CDT, Duration: 1 doses or times, Stop date: 09/25/15 23:32:00 CDT Sodium 2016-0 No 1,000 mL, [facility] a Chloride 5-18 Rate: 150 l 0.154 21:51: ml/hr, [place] MEQ/ML 00 Infuse Injectable over: 6.7 Solution hr, Route: IV, Dosing Weight 72.727 kg, Total Volume: 1,000, Priority: STAT, Start date: 09/25/15 16:51:00 CDT, Duration: 1 doses or times, Stop date: 09/25/15 23:32:00 CDT Sodium 2016-0 No 1,000 mL, [facility] a Chloride 5-18 Rate: 150 l 0.154 21:51: ml/hr, [place] MEQ/ML 00 Infuse Injectable over: 6.7 Solution hr, Route: IV, Dosing Weight 72.727 kg, Total Volume: 1,000, Priority: STAT, Start date: 09/25/15 16:51:00 CDT, Duration: 1 doses or times, Stop date: 09/25/15 23:32:00 CDT Sodium 2016-0 No 1,000 mL, [facility] a Chloride 5-18 Rate: 150 l 0.154 21:51: ml/hr, [place] MEQ/ML 00 Infuse Injectable over: 6.7 Solution [...] Chloride 5-18 1,000 l 0.154 21:12: ml/hr, [place] MEQ/ML 00 Infuse Injectable Over: 1 Solution [...] Chloride 5-18 1,000 l 0.154 21:12: ml/hr, [place] MEQ/ML 00 Infuse Injectable Over: 1 Solution [...] times, Stop date: 09/25/15 16:12:00 CDT Effexor 2015-0 No PO, 0 [facility] 5-18 Refill(s) l 20:59: Venkatesh Risperdal 0 No PO, BID, 0 Me moria 5-18 Refill(s) l 20:59: [place] Effexor 0 No PO, 0 [facility] 5-18 Refill(s) l 20:59: Venkatesh Risperdal 0 No PO, BID, 0 Me moria 5-18 Refill(s) l 20:59: Venkatesh Effexor 2015-0 No PO, 0 [facility] 5-18 Refill(s) l 20:59: Venkatesh Risperdal 2015-0 No PO, BID, 0 Me moria 5-18 Refill(s) l 20:59: [place] Effexor 2015-0 No PO, 0 [facility] 5-18 Refill(s) l 20:59: [place] Risperdal 2015-0 No PO, BID, 0 Me moria 5-18 Refill(s) l 20:59: Venkatesh 00 Effexor 2015-0 No PO, 0 [facility] 5-18 Refill(s) l 20:59: Venkatesh Risperdal 2015-0 No PO, BID, 0 Me moria 5-18 Refill(s) l 20:59: Venkatesh Effexor 2015-0 No PO, 0 [facility] 5-18 Refill(s) l 20:59: Venkatesh Risperdal No PO, BID, 0 Me moria 5-18 Refill(s) l 20:59: Effexor No PO, 0 [facility] 5-18 Refill(s) l 20:59: Risperdal No PO, BID, 0 Me moria 5-18 Refill(s) l 20:59: Effexor No PO, 0 [facility] 5-18 Refill(s) l 20:59: Risperdal No PO, BID, 0 Me moria 5-18 Refill(s) l 20:59: Effexor No PO, 0 [facility] 5-18 Refill(s) l 20:59: Risperdal No PO, BID, 0 Me moria 5-18 Refill(s) l 20:59: Potassium No Notes: [facility] Chloride 20 3-31 (Same as: l MEQ 22:00: K-Dur 20) "Do Not Release Crush" Tablet With food and full glass of water Potassium No Notes: [facility] Chloride 20 3-31 (Same as: l MEQ 22:00: K-Dur 20) "Do Not Release Crush" Tablet With food and full glass of water Potassium No Notes: [facility] Chloride 20 3-31 (Same as: l MEQ 22:00: K-Dur 20) "Do Not Release Crush" Tablet With food and full glass of water Potassium No Notes: [facility] Chloride 20 3-31 (Same as: l MEQ 22:00: K-Dur 20) Extended "Do Not Release Crush" Tablet With food and full glass of water Potassium No Notes: [facility] Chloride 20 3-31 (Same as: l MEQ 22:00: K-Dur 20) Extended "Do Not Release Crush" Tablet With food and full glass of water Potassium No Notes: [facility] Chloride 20 3-31 (Same as: l MEQ 22:00: K-Dur 20) Extended "Do Not Release Crush" Tablet With food and full glass of water Potassium No Notes: [facility] Chloride 20 3-31 (Same as: l MEQ 22:00: K-Dur 20) [place] Extended "Do Not Release Crush" Tablet With food and full glass of water Potassium No Notes: [facility] Chloride 20 3-31 (Same as: l MEQ 22:00: K-Dur 20) [place] Extended "Do Not Release Crush" Tablet With food and full glass of water Potassium No Notes: [facility] Chloride 20 3-31 (Same as: l MEQ 22:00: K-Dur 20) [place] Extended "Do Not Release Crush" Tablet With food and full glass of water Potassium Yes 10 mEq = 1 Me moria Chloride 10 3-31 tab, PO, l MEQ 21:50: BID, # 20 Venkatesh Extended 00 tab, 0 Release Refill(s) Tablet Potassium Yes 10 mEq = 1 Me mor[facility] Chloride 10 3-31 tab, PO, l MEQ 21:50: BID, # 20 [place] Extended 00 tab, 0 Release Refill(s) Tablet Potassium Yes 10 mEq = 1 Me [facility] Chloride 10 3-31 tab, PO, l MEQ 21:50: BID, # 20 [place] Extended 00 tab, 0 Release Refill(s) Tablet Potassium Yes 10 mEq = 1 Me [facility] Chloride 10 3-31 tab, PO, l MEQ 21:50: BID, # 20 Venkatesh Extended 00 tab, 0 Release Refill(s) Tablet Potassium Yes 10 mEq = 1 Me [facility] Chloride 10 3-31 tab, PO, l MEQ 21:50: BID, # 20 [place] Extended 00 tab, 0 Release Refill(s) Tablet Potassium 0 Yes 10 mEq = 1 Me [facility] Chloride 10 3-31 tab, PO, l MEQ 21:50: BID, # 20 Venkatesh Extended 00 tab, 0 Release Refill(s) Tablet Potassium 0 Yes 10 mEq = 1 Me moria Chloride 10 3-31 tab, PO, l MEQ 21:50: BID, # 20 Venkatesh Extended 00 tab, 0 Release Refill(s) Tablet Potassium Yes 10 mEq = 1 Me [facility] Chloride 10 3-31 tab, PO, l MEQ 21:50: BID, # 20 [place] Extended 00 tab, 0 Release Refill(s) Tablet Potassium 2016-0 Yes 10 mEq = 1 Me mor[facility] Chloride 10 3-31 tab, PO, l MEQ 21:50: BID, # 20 [place] Extended 00 tab, 0 Release Refill(s) Tablet Effexor XR 2015-0 No 225 mg, 3 Me moria 3-31 cap, l 14:00: Route: PO, Venkatesh 00 Drug form: ERCAP, Daily, Dosing Weight 68.182, kg, Start date: 08/08/15 9:00:00, Duration: 30 day, Stop date: 09/06/15 9:00:00 Omeprazole 2015-0 No 20 mg, [facility] 3-31 Route: PO, l 14:00: Drug form: Venkatesh 00 DRC, Daily, Dosing Weight 68.182, kg, [...] 30 day, Stop date: 09/06/15 9:00:00 Omeprazole 2015-0 No 20 mg, [facility] 3-31 Route: PO, l 14:00: Drug form: [place] 00 DRC, Daily, Dosing Weight 68.182, kg, Start date: 08/08/15 9:00:00, Duration: 30 day, Stop date: 09/06/15 9:00:00 Mobic 2015-0 No Notes: [facility] 3-31 (Same as: l 14:00: Mobic) Venkatesh 00 Wellbutrin 2016-0 No 300 mg, 2 Me moria XL 3-31 tab, l 14:00: Route: PO, Venkatesh 00 Drug form: ERTAB, Daily, Dosing Weight 68.182, kg, Start date: 08/08/15 9:00:00, Duration: 30 day, Stop date: 09/06/15 9:00:00 Effexor XR 2016-0 No 225 mg, 3 Me moria 3-31 cap, l 14:00: Route: PO, Venkatesh 00 Drug form: ERCAP, Daily, Dosing Weight 68.182, kg, Start date: 08/08/15 9:00:00, Duration: 30 day, Stop date: 09/06/15 9:00:00 Omeprazole 2016-0 No 20 mg, [facility] 3-31 Route: PO, l 14:00: Drug form: Venkatesh 00 DRC, Daily, Dosing Weight 68.182, kg, Start date: 08/08/15 9:00:00, Duration: 30 day, Stop date: 09/06/15 9:00:00 Mobic 2016-0 No Notes: [facility] 3-31 (Same as: l 14:00: Mobic) Wellbutrin 2016-0 No 300 mg, 2 Me moria XL 3-31 tab, l 14:00: Route: PO, Venkatesh 00 Drug form: ERTAB, Daily, Dosing Weight 68.182, kg, Start date: 08/08/15 9:00:00, Duration: 30 day, Stop date: 09/06/15 9:00:00 Effexor XR 2016-0 No 225 mg, 3 Me moria 3-31 cap, l 14:00: Route: PO, [place] 00 Drug form: ERCAP, Daily, Dosing Weight 68.182, kg, Start date: 08/08/15 9:00:00, Duration: 30 day, Stop date: 09/06/15 9:00:00 Omeprazole 2016-0 No 20 mg, [facility] 3-31 Route: PO, l 14:00: Drug form: Venkatesh 00 DRC, Daily, Dosing Weight 68.182, kg, Start date: 08/08/15 9:00:00, Duration: 30 day, Stop date: 09/06/15 9:00:00 Mobic 2016-0 No Notes: [facility] 3-31 (Same as: l 14:00: Mobic) Wellbutrin 2016-0 No 300 mg, 2 Me moria XL 3-31 tab, l 14:00: Route: PO, Venkatesh 00 Drug form: ERTAB, Daily, Dosing Weight 68.182, kg, Start date: 08/08/15 9:00:00, Duration: 30 day, Stop date: 09/06/15 9:00:00 Effexor XR 2016-0 No 225 mg, 3 Me moria 3-31 cap, l 14:00: Route: PO, Drug form: ERCAP, Daily, Dosing Weight 68.182, kg, Start date: 08/08/15 9:00:00, Duration: 30 day, Stop date: 09/06/15 9:00:00 Omeprazole 2016-0 No 20 mg, [facility] 3-31 Route: PO, l 14:00: Drug form: [place] 00 DRC, Daily, Dosing Weight 68.182, kg, Start date: 08/08/15 9:00:00, Duration: 30 day, Stop date: 09/06/15 9:00:00 Mobic 2016-0 No Notes: [facility] 3-31 (Same as: l 14:00: Mobic) Wellbutrin 2016-0 No 300 mg, 2 Me moria XL 3-31 tab, l 14:00: Route: PO, Venkatesh 00 Drug form: ERTAB, Daily, Dosing Weight 68.182, kg, Start date: 08/08/15 9:00:00, Duration: 30 day, Stop date: 09/06/15 9:00:00 Effexor XR 2016-0 No 225 mg, 3 Me moria 3-31 cap, l 14:00: Route: PO, Drug form: ERCAP, Daily, Dosing Weight 68.182, kg, Start date: 08/08/15 9:00:00, Duration: 30 day, Stop date: 09/06/15 9:00:00 Omeprazole 2016-0 No 20 mg, [facility] 3-31 Route: PO, l 14:00: Drug form: Venkatesh 00 DRC, Daily, Dosing Weight 68.182, kg, Start date: 08/08/15 9:00:00, Duration: 30 day, Stop date: 09/06/15 9:00:00 Mobic 2016-0 No Notes: [facility] 3-31 (Same as: l 14:00: Mobic) Wellbutrin 2016-0 No 300 mg, 2 Me moria XL 3-31 tab, l 14:00: Route: PO, [place] 00 Drug form: ERTAB, Daily, Dosing Weight 68.182, kg, Start date: 08/08/15 9:00:00, Duration: 30 day, Stop date: 09/06/15 9:00:00 Effexor XR 2016-0 No 225 mg, 3 Me moria 3-31 cap, l 14:00: Route: PO, Drug form: ERCAP, Daily, Dosing Weight 68.182, kg, Start date: 08/08/15 9:00:00, Duration: 30 day, Stop date: 09/06/15 9:00:00 Omeprazole 2016-0 No 20 mg, [facility] 3-31 Route: PO, l 14:00: Drug form: [place] 00 DRC, Daily, Dosing Weight 68.182, kg, Start date: 08/08/15 9:00:00, Duration: 30 day, Stop date: 09/06/15 9:00:00 Mobic 2016-0 No Notes: [facility] 3-31 (Same as: l 14:00: [place]) Wellbutrin 2016-0 No 300 mg, 2 Me moria XL 3-31 tab, l 14:00: Route: PO, Drug form: ERTAB, Daily, Dosing Weight 68.182, kg, Start date: 08/08/15 9:00:00, Duration: 30 day, Stop date: 09/06/15 9:00:00 Effexor XR 2016-0 No 225 mg, 3 Me moria 3-31 cap, l 14:00: Route: PO, [place] 00 Drug form: ERCAP, Daily, Dosing Weight 68.182, kg, Start date: 08/08/15 9:00:00, Duration: 30 day, Stop date: 09/06/15 9:00:00 Omeprazole 2016-0 No 20 mg, [facility] 3-31 Route: PO, l 14:00: Drug form: Venkatesh 00 DRC, Daily, Dosing Weight 68.182, kg, [...] 30 day, Stop date: 09/06/15 9:00:00 Omeprazole 2015-0 No 20 mg, [facility] 3-31 Route: PO, l 14:00: Drug form: [place] 00 DRC, Daily, Dosing Weight 68.182, kg, [...] 30 day, Stop date: 09/06/15 9:00:00 potassium 2016-0 No Notes: [facility] a chloride 3-31 (Same as: l 12:29: K-Dur 20) "Do Not Crush" With food and full glass of water potassium 2016-0 No Notes: [facility] chloride 3-31 (Same as: l 12:29: K-Dur 20) [place] 00 "Do Not Crush" With food and full glass of water potassium 2016-0 No Notes: [facility] chloride 3-31 (Same as: l 12:29: K-Dur 20) Venkatesh 00 "Do Not Crush" With food and full glass of water potassium 2016-0 No Notes: [facility] a chloride 3-31 (Same as: l 12:29: K-Dur 20) Venkatesh 00 "Do Not Crush" With food and full glass of water potassium 2016-0 No Notes: [facility] chloride 3-31 (Same as: l 12:29: K-Dur 20) Venkatesh 00 "Do Not Crush" With food and full glass of water potassium 2016-0 No Notes: [facility] chloride 3-31 (Same as: l 12:29: K-Dur 20) Venkatesh 00 "Do Not Crush" With food and full glass of water potassium 2016-0 No Notes: [facility] chloride 3-31 (Same as: l 12:29: K-Dur 20) [place] 00 "Do Not Crush" With food and full glass of water potassium 2016-0 No Notes: [facility] chloride 3-31 (Same as: l 12:29: K-Dur 20) [place] 00 "Do Not Crush" With food and full glass of water potassium 2016-0 No Notes: [facility] chloride 3-31 (Same as: l 12:29: K-Dur 20) Venkatesh 00 "Do Not Crush" With food and full glass of water Thyroxine 0 No Notes: [facility] a 3-31 Take 1 l 11:30: hour [place] 00 before or 2 hours after meal; Enteral feeds may interefere with the absorption of this medication . (Same as:Levothr oid) Thyroxine No Notes: [facility] a 3-31 Take 1 l 11:30: hour [place] 00 before or 2 hours after meal; Enteral feeds may interefere with the absorption of this medication . (Same as:Levothr oid) Thyroxine No Notes: [facility] a 3-31 Take 1 l 11:30: hour [place] 00 before or 2 hours after meal; Enteral feeds may interefere with the absorption of this medication . (Same as:Levothr oid) Thyroxine 0 No Notes: [facility] a 3-31 Take 1 l 11:30: hour Venkatesh 00 before or 2 hours after meal; Enteral feeds may interefere with the absorption of this medication . (Same as:Levothr oid) Thyroxine No Notes: [facility] a 3-31 Take 1 l 11:30: hour Venkatesh 00 before or 2 hours after meal; Enteral feeds may interefere with the absorption of this medication . (Same as:Levothr oid) Thyroxine No Notes: [facility] a 3-31 Take 1 l 11:30: hour [place] 00 before or 2 hours after meal; Enteral feeds may interefere with the absorption of this medication . (Same as:Levothr oid) Thyroxine No Notes: [facility] a 3-31 Take 1 l 11:30: hour Venkatesh 00 before or 2 hours after meal; Enteral feeds may interefere with the absorption of this medication . (Same as:Levothr oid) Thyroxine No Notes: [facility] a 3-31 Take 1 l 11:30: hour Venkatesh 00 before or 2 hours after meal; Enteral feeds may interefere with the absorption of this medication . (Same as:Levothr oid) Thyroxine No Notes: [facility] a 3-31 Take 1 l 11:30: hour [place] 00 before or 2 hours after meal; Enteral feeds may interefere with the absorption of this medication . (Same as:Levothr oid) Sodium No 500 mL, [facility] Chloride -31 500 ml/hr, l 0.154 06:18: Infuse [place] MEQ/ML 00 Over: 1 Injectable hr, Route: Solution IV, 500, Drug form: INJ, ONCE, Priority: STAT, Dosing Weight 71.6 kg, Start date: 08/08/15 1:18:00, Duration: 1 doses or times, Stop date: 08/08/15 1:18:00 Albumin No Notes: [facility] Human, RETIREMENT 08-07 LOT#: l 50 MG/ML 06:18: Her briggs Injectable 00 ___ Solution Mfg: WASTE: F/P - Red; E -Red (Same as: Albuminar) "blood product derivative " Sodium 2015-0 No 500 mL, [facility] Chloride 3-31 500 ml/hr, l 0.154 06:18: Infuse Venkatesh MEQ/ML 00 Over: 1 Injectable hr, Route: Solution IV, 500, Drug form: INJ, ONCE, Priority: STAT, Dosing Weight 71.6 kg, Start date: 08/08/15 1:18:00, Duration: 1 doses or times, Stop date: 08/08/15 1:18:00 Albumin 2016-0 No Notes: Yasmine Gamboa RETIREMENT 08-07 LOT#: l 50 MG/ML 06:18: Her [place] Injectable 00 ___ Solution Mfg: WASTE: F/P - Red; E -Red (Same as: Albuminar) "blood product derivative " Sodium 2015-0 No 500 mL, [facility] Chloride 3-31 500 ml/hr, l 0.154 06:18: Infuse [place] MEQ/ML 00 Over: 1 Injectable hr, Route: Solution IV, 500, Drug form: INJ, ONCE, Priority: STAT, Dosing Weight 71.6 kg, Start date: 08/08/15 1:18:00, Duration: 1 doses or times, Stop date: 08/08/15 1:18:00 Albumin 2016-0 No Notes: Yasmine Gamboa RETIREMENT 08-07 LOT#: l 50 MG/ML 06:18: Her [place] Injectable 00 ___ Solution Mfg: WASTE: F/P - Red; E -Red (Same as: Albuminar) "blood product derivative " Sodium 0 No 500 mL, [facility] Chloride 3-31 500 ml/hr, l 0.154 06:18: Infuse [place] MEQ/ML 00 Over: 1 Injectable hr, Route: Solution IV, 500, Drug form: INJ, ONCE, Priority: STAT, Dosing Weight 71.6 kg, Start date: 08/08/15 1:18:00, Duration: 1 doses or times, Stop date: 08/08/15 1:18:00 Albumin 2016-0 No Notes: Yasmine Gamboa RETIREMENT 08-07 LOT#: l 50 MG/ML 06:18: Her [...] date: 08/08/15 1:18:00 Albumin 2016-0 No Notes: [facility] Human, RETIREMENT 08-07 LOT#: l 50 MG/ML 06:18: Her [place] Injectable 00 ___ Solution Mfg: WASTE: F/P - Red; E -Red (Same as: Albuminar) "blood product derivative " Sodium No 500 mL, [facility] Chloride 3-31 500 ml/hr, l 0.154 06:18: Infuse Venkatesh MEQ/ML 00 Over: 1 Injectable hr, Route: Solution IV, 500, Drug form: INJ, ONCE, Priority: STAT, Dosing Weight 71.6 kg, Start date: 08/08/15 1:18:00, Duration: 1 doses or times, Stop date: 08/08/15 1:18:00 Albumin 2016-0 No Notes: Yasmine Human, RETIREMENT 08-07 LOT#: l 50 MG/ML 06:18: Her [place] Injectable 00 ___ Solution Mfg: WASTE: F/P - Red; E -Red (Same as: Albuminar) "blood product derivative " Sodium 2015-0 No 500 mL, [facility] Chloride 3-31 500 ml/hr, l 0.154 06:18: Infuse Venkatesh MEQ/ML 00 Over: 1 Injectable hr, Route: Solution IV, 500, Drug form: INJ, ONCE, Priority: STAT, Dosing Weight 71.6 kg, Start date: 08/08/15 1:18:00, Duration: 1 doses or times, Stop date: 08/08/15 1:18:00 Albumin 2016-0 No Notes: Yasmine Gamboa RETIREMENT 08-07 LOT#: l 50 MG/ML 06:18: Her brig[place] Injectable 00 ___ Solution Mfg: WASTE: F/P - Red; E -Red (Same as: Albuminar) "blood product derivative " Sodium 0 No 500 mL, [facility] Chloride 3-31 500 ml/hr, l 0.154 06:18: Infuse [place] MEQ/ML 00 Over: 1 Injectable hr, Route: Solution IV, 500, Drug form: INJ, ONCE, Priority: STAT, Dosing Weight 71.6 kg, Start date: 08/08/15 1:18:00, Duration: 1 doses or times, Stop date: 08/08/15 1:18:00 Albumin 2016-0 No Notes: Yasmine Gamboa RETIREMENT 08-07 LOT#: l 50 MG/ML 06:18: Her briggs Injectable 00 ___ Solution Mfg: WASTE: F/P - Red; E -Red (Same as: Albuminar) "blood product derivative " Sodium No 500 mL, [facility] Chloride 08-07 500 ml/hr, l 0.154 06:18: Infuse Venkatesh MEQ/ML 00 Over: 1 Injectable hr, Route: Solution IV, 500, Drug form: INJ, ONCE, Priority: STAT, Dosing Weight 71.6 kg, Start date: 08/08/15 1:18:00, Duration: 1 doses or times, Stop date: 08/08/15 1:18:00 Albumin 2016-0 No Notes: Yasmine Human, RETIREMENT 08-07 LOT#: l 50 MG/ML 06:18: Her briggs Injectable 00 ___ Solution Mfg: WASTE: F/P - Red; E -Red (Same as: Albuminar) "blood product derivative " Sodium 0 No 1,000 mL, [facility] a Chloride 3-31 1,000 l 0.154 04:19: ml/hr, Venkatesh MEQ/ML 00 Infuse Injectable Over: 1 Solution hr, Route: IV, 1,000, Drug form: INJ, ONCE, Priority: STAT, Dosing Weight 71.6 kg, Start date: 08/07/15 23:19:00, Duration: 1 doses or times, Stop date: 08/07/15 23:19:00 Sodium 2016-0 No 1,000 mL, [facility] Chloride 3-31 1,000 l 0.154 04:19: ml/hr, [place] MEQ/ML 00 Infuse Injectable Over: 1 Solution hr, Route: IV, 1,000, Drug form: INJ, ONCE, Priority: STAT, Dosing Weight 71.6 kg, Start date: 08/07/15 23:19:00, Duration: 1 doses or times, Stop date: 08/07/15 23:19:00 Sodium 2016-0 No 1,000 mL, [facility] Chloride 3-31 1,000 l 0.154 04:19: ml/hr, Venkatesh MEQ/ML 00 Infuse Injectable Over: 1 Solution hr, Route: IV, 1,000, Drug form: INJ, ONCE, Priority: STAT, Dosing Weight 71.6 kg, Start date: 08/07/15 23:19:00, Duration: 1 doses or times, Stop date: 08/07/15 23:19:00 Sodium 2016-0 No 1,000 mL, [facility] a Chloride 3-31 1,000 l 0.154 04:19: ml/hr, Venkatesh MEQ/ML 00 Infuse Injectable Over: 1 Solution hr, Route: IV, 1,000, Drug form: INJ, ONCE, Priority: STAT, Dosing Weight 71.6 kg, Start date: 08/07/15 23:19:00, Duration: 1 doses or times, Stop date: 08/07/15 23:19:00 Sodium 2016-0 No 1,000 mL, [facility] Chloride 3-31 1,000 l 0.154 04:19: ml/hr, [place] MEQ/ML 00 Infuse Injectable Over: 1 Solution hr, Route: IV, 1,000, Drug form: INJ, ONCE, Priority: STAT, Dosing Weight 71.6 kg, Start date: 08/07/15 23:19:00, Duration: 1 doses or times, Stop date: 08/07/15 23:19:00 Sodium 2016-0 No 1,000 mL, [facility] Chloride 3-31 1,000 l 0.154 04:19: ml/hr, [place] MEQ/ML 00 Infuse Injectable Over: 1 Solution hr, Route: IV, 1,000, Drug form: INJ, ONCE, Priority: STAT, Dosing Weight 71.6 kg, Start date: 08/07/15 23:19:00, Duration: 1 doses or times, Stop date: 08/07/15 23:19:00 Sodium 2016-0 No 1,000 mL, [facility] Chloride 3-31 1,000 l 0.154 04:19: ml/hr, Venkatehs MEQ/ML 00 Infuse Injectable Over: 1 Solution hr, Route: IV, 1,000, Drug form: INJ, ONCE, Priority: STAT, Dosing Weight 71.6 kg, Start date: 08/07/15 23:19:00, Duration: 1 doses or times, Stop date: 08/07/15 23:19:00 Sodium 2016-0 No 1,000 mL, [facility] Chloride 3-31 1,000 l 0.154 04:19: ml/hr, [place] MEQ/ML 00 Infuse Injectable Over: 1 Solution hr, Route: IV, 1,000, Drug form: INJ, ONCE, Priority: STAT, Dosing Weight 71.6 kg, Start date: 08/07/15 23:19:00, Duration: 1 doses or times, Stop date: 08/07/15 23:19:00 Sodium 2016-0 No 1,000 mL, [facility] a Chloride 3-31 1,000 l 0.154 04:19: ml/hr, Venkatesh MEQ/ML 00 Infuse Injectable Over: 1 Solution hr, Route: IV, 1,000, Drug form: INJ, ONCE, Priority: STAT, Dosing Weight 71.6 kg, Start date: 08/07/15 23:19:00, Duration: 1 doses or times, Stop date: 08/07/15 23:19:00 Saline 2016-0 No 10 ml, [facility] Flush 0.9% 3-31 Route: l 02:00: IVP, Drug [place] 00 Form: INJ, Dosing Weight 68.182, kg, Q12H, Start date: 08/07/15 21:00:00, Duration: 30 day, Stop date: 09/06/15 9:00:00 Protonix 2015- No 40 mg, 1 [facility] ia 3-31 [...] (Same as: l inhalation 02:00: Symbicort) H ermann aerosol 00 WASTE: with Aerosol - adapter Return to Pharmacy Lipitor No Notes: [facility] 3-31 (Same as: l 02:00: Lipitor) Enoxaparin No Notes: [facility] 3-31 (Same as: l 02:00: Lovenox) Saline No 10 ml, [facility] Flush 0.9% 3 Route: l 02:00: IVP, Drug Form: INJ, Dosing Weight 68.182, kg, Q12H, Start date: 08/07/15 21:00:00, Duration: 30 day, Stop date: 09/06/15 9:00:00 Protonix 2015- No 40 mg, 1 [facility] 3-31 tab, l 02:00: Route: PO, Venkatesh 00 Drug form: ECTAB, Before Dinner, Start date: 08/07/15 21:00:00, Duration: 30 day, Stop date: 09/06/15 16:30:00 Geodon No Notes: [facility] 3-31 (Same As: l 02:00: Geodon) Give with Food Diazepam No Notes: [facility] 3-31 (Same as: l 02:00: Valium) Venkatesh Symbicort No Notes: [facility] a 80/4.5 3-31 (Same as: l inhalation 02:00: Symbicort) H [place] aerosol 00 WASTE: with Aerosol - adapter Return to Pharmacy Lipitor No Notes: [facility] 3-31 (Same as: l 02:00: Lipitor) Venkatesh 00 Enoxaparin No Notes: [facility] 3-31 (Same as: l 02:00: Lovenox) Saline No 10 ml, [facility] Flush 0.9% 3-31 Route: l 02:00: IVP, Drug Form: INJ, Dosing Weight 68.182, kg, Q12H, Start date: 08/07/15 21:00:00, Duration: 30 day, Stop date: 09/06/15 9:00:00 Protonix 2015-0 No 40 mg, 1 [facility] 3-31 tab, l 02:00: Route: PO, Venkatesh 00 Drug form: ECTAB, Before Dinner, Start date: 08/07/15 21:00:00, Duration: 30 day, Stop date: 09/06/15 16:30:00 Geodon No Notes: [facility] 3-31 (Same As: l 02:00: Geodon) [place] 00 Give with Food Diazepam No Notes: [facility] 3-31 (Same as: l 02:00: Valium) [place] 00 Symbicort No Notes: [facility] a 80/4.5 3-31 (Same as: l inhalation 02:00: Symbicort) H ermann aerosol 00 WASTE: with Aerosol - adapter Return to Pharmacy Lipitor No Notes: [facility] 3-31 (Same as: l 02:00: Lipitor) Enoxaparin No Notes: Memor ia 3-31 (Same as: l 02:00: Lovenox) Saline No 10 ml, Memoria Flush 0.9% 3-31 Route: l 02:00: IVP, Drug Form: INJ, Dosing Weight 68.182, kg, Q12H, Start date: 08/07/15 21:00:00, Duration: 30 day, Stop date: 09/06/15 9:00:00 Protonix 2015-0 No 40 mg, 1 Memor ia 3-31 tab, l 02:00: Route: PO, Venkatesh 00 Drug form: ECTAB, Before Dinner, Start date: 08/07/15 21:00:00, Duration: 30 day, Stop date: 09/06/15 16:30:00 Geodon No Notes: Memoria 3-31 (Same As: l 02:00: Geodon) Give with Food Diazepam No Notes: [facility] 3-31 (Same as: l 02:00: Valium) [place] 00 Symbicort No Notes: Memori a 80/4.5 3-31 (Same as: l inhalation 02:00: Symbicort) [place] aerosol 00 WASTE: with [...] 30 day, Stop date: 09/06/15 9:00:00 Protonix No 40 mg, 1 [facility] ia 3-31 tab, l 02:00: Route: PO, Venkatesh 00 Drug form: ECTAB, Before Dinner, Start date: 08/07/15 21:00:00, Duration: 30 day, Stop date: 09/06/15 16:30:00 Geodon No Notes: [facility]oria 3-31 (Same As: l 02:00: Geodon) [place]katesh 00 Give with Food Diazepam No Notes: [facility] 3-31 (Same as: l 02:00: Valium) Venkatesh 00 Symbicort No Notes: Memori a 80/4.5 3-31 (Same as: l inhalation 02:00: Symbicort) [place] aerosol 00 WASTE: with Aerosol - adapter Return to Pharmacy Lipitor No Notes: [facility] 3-31 (Same as: l 02:00: Lipitor) Enoxaparin No Notes: Memor ia 3-31 (Same as: l 02:00: Lovenox) Saline No 10 ml, [facility] Flush 0.9% 3-31 Route: l 02:00: IVP, Drug Form: INJ, [...] (Same as: l inhalation 02:00: Symbicort) [place] aerosol 00 WASTE: with Aerosol - adapter Return to Pharmacy Lipitor No Notes: [facility] 3-31 (Same as: l 02:00: Lipitor) Enoxaparin No Notes: [facility] ia 3-31 (Same as: l 02:00: Lovenox) Saline No 10 ml, [facility] Flush 0.9% 3-31 Route: l 02:00: IVP, Drug Form: INJ, Dosing Weight 68.182, kg, Q12H, Start date: 08/07/15 21:00:00, Duration: 30 day, Stop date: 09/06/15 9:00:00 Protonix 2015-0 No 40 mg, 1 [facility] ia 3-31 tab, l 02:00: Route: PO, Venkatesh 00 Drug form: ECTAB, Before Dinner, Start date: 08/07/15 21:00:00, Duration: 30 day, Stop date: 09/06/15 16:30:00 Geodon No Notes: [facility]oria 3-31 (Same As: l 02:00: Geodon) Give with Food Diazepam No Notes: [facility] 3-31 (Same as: l 02:00: Valium) Symbicort No Notes: Memori a 80/4.5 3-31 (Same as: l inhalation 02:00: Symbicort) H ermann aerosol 00 WASTE: with [...] 30 day, Stop date: 09/06/15 9:00:00 Protonix No 40 mg, 1 Memor ia 3-31 [...] (Same as: l inhalation 02:00: Symbicort) H ermann aerosol 00 WASTE: with Aerosol - adapter Return to Pharmacy Lipitor No Notes: Memoria 3-31 (Same as: l 02:00: Lipitor) Enoxaparin No Notes: Memor ia 3-31 (Same as: l 02:00: Lovenox) Saline No 10 ml, Memoria Flush 0.9% 3-31 Route: l 02:00: IVP, Drug Form: INJ, Dosing Weight 68.182, kg, Q12H, Start date: 08/07/15 21:00:00, Duration: 30 day, Stop date: 09/06/15 9:00:00 Protonix No 40 mg, 1 Memor ia 3-31 [...] Lovenox) Sodium No 25 mL, Memoria Chloride 3-31 Route: IV, l 0.9% IV 00:36: Start date: 08/07/15 19:36:00, Duration: 30 day, Stop date: 09/06/15 19:35:00, PRN Line Flush BD Normal No Notes: Memori a Saline 3-31 (Same as: l Flush 00:36: BD Posiflush) Sodium No 25 mL, Mem[facility] Chloride 3-31 Route: IV, l 0.9% IV 00:36: Start date: 08/07/15 19:36:00, Duration: 30 day, Stop date: 09/06/15 19:35:00, PRN Line Flush BD Normal No Notes: Memori a Saline 3-31 (Same as: l Flush 00:36: BD [place] 00 Posiflush) Sodium 2016-0 No 25 mL, Memoria Chloride 3-31 Route: IV, l 0.9% IV 00:36: Start Venkatesh 00 date: 08/07/15 19:36:00, Duration: 30 day, Stop date: 09/06/15 19:35:00, PRN Line Flush BD Normal 0 No Notes: Memori a Saline 3-31 (Same as: l Flush 00:36: BD [place] 00 Posiflush) Sodium 2015-0 No 25 mL, Mem[facility] Chloride 3-31 Route: IV, l 0.9% IV 00:36: Start [place] 00 date: 08/07/15 19:36:00, Duration: 30 day, Stop date: 09/06/15 19:35:00, PRN Line Flush BD Normal 0 No Notes: Memori a Saline 3-31 (Same as: l Flush 00:36: BD Venkatesh 00 Posiflush) Sodium 2015-0 No 25 mL, [facility] Chloride 3-31 Route: IV, l 0.9% IV 00:36: Start [place] 00 date: 08/07/15 19:36:00, Duration: 30 day, Stop date: 09/06/15 19:35:00, PRN Line Flush BD Normal 0 No Notes: Memori a Saline 3-31 (Same as: l Flush 00:36: BD [place] 00 Posiflush) Sodium 2015-0 No 25 mL, [facility] Chloride 3-31 Route: IV, l 0.9% IV 00:36: Start Venkatesh 00 date: 08/07/15 19:36:00, Duration: 30 day, Stop date: 09/06/15 19:35:00, PRN Line Flush BD Normal 0 No Notes: Mem[facility] a Saline 3-31 (Same as: l Flush 00:36: BD Venkatesh 00 Posiflush) Sodium 2016-0 No 25 mL, [facility] Chloride 3-31 Route: IV, l 0.9% IV 00:36: Start Venkatesh 00 date: 08/07/15 19:36:00, Duration: 30 day, Stop date: 09/06/15 19:35:00, PRN Line Flush BD Normal 2016-0 No Notes: Mem[facility] a Saline 3-31 (Same as: l Flush 00:36: BD Venkatesh 00 Posiflush) Sodium 2016-0 No 25 mL, [facility] Chloride 3-31 Route: IV, l 0.9% IV 00:36: Start [place] 00 date: 08/07/15 19:36:00, Duration: 30 day, Stop date: 09/06/15 19:35:00, PRN Line Flush BD Normal 2016-0 No Notes: Mem[facility] a Saline 3-31 (Same as: l Flush 00:36: BD Venkatesh 00 Posiflush) Sodium 2016-0 No 25 mL, [facility] Chloride 3-31 Route: IV, l 0.9% IV 00:36: Start Venkatesh 00 date: 08/07/15 19:36:00, Duration: 30 day, Stop date: 09/06/15 19:35:00, PRN Line Flush BD Normal 2016-0 No Notes: Mem[facility] a Saline 3-31 (Same as: l Flush 00:36: BD [place] Posiflush) normal 2016-0 No 1,000 mL, Memori a saline 0.9% 3-30 Rate: 125 l IV 1,000 mL 23:13: ml/hr, Herm kevin 00 Infuse over: 8 hr, Route: IV, Dosing Weight 68.182 kg, Total Volume: 1,000, Start date: 08/07/15 18:13:00, Duration: 30 day, Stop date: 09/06/15 18:12:00 normal 2016-0 No 1,000 mL, Memori a saline 0.9% 3-30 Rate: 125 l IV 1,000 mL 23:13: ml/hr, Herm kevin 00 Infuse over: 8 hr, Route: IV, Dosing Weight 68.182 kg, Total Volume: 1,000, Start date: 08/07/15 18:13:00, Duration: 30 day, Stop date: 09/06/15 18:12:00 normal 2016-0 No 1,000 mL, Memori a saline 0.9% 3-30 Rate: 125 l IV 1,000 mL 23:13: ml/hr, Herm kevin 00 Infuse over: 8 hr, Route: IV, Dosing Weight 68.182 kg, Total Volume: 1,000, Start date: 08/07/15 18:13:00, Duration: 30 day, Stop date: 09/06/15 18:12:00 normal 2016-0 No 1,000 mL, Memori a saline 0.9% 3-30 Rate: 125 l IV 1,000 mL 23:13: ml/hr, Herm kevin 00 Infuse over: 8 hr, Route: IV, Dosing Weight 68.182 kg, Total Volume: 1,000, Start date: 08/07/15 18:13:00, Duration: 30 day, Stop date: 09/06/15 18:12:00 normal 2016-0 No 1,000 mL, Memori a saline 0.9% 3-30 Rate: 125 l IV 1,000 mL 23:13: ml/hr, Herm kevin 00 Infuse over: 8 hr, Route: IV, Dosing Weight 68.182 kg, Total Volume: 1,000, Start date: 08/07/15 18:13:00, Duration: 30 day, Stop date: 09/06/15 18:12:00 normal 2016-0 No 1,000 mL, Memori a saline 0.9% 3-30 Rate: 125 l IV 1,000 mL 23:13: ml/hr, Herm kevin 00 Infuse over: 8 hr, Route: IV, Dosing Weight 68.182 kg, Total Volume: 1,000, Start date: 08/07/15 18:13:00, Duration: 30 day, Stop date: 09/06/15 18:12:00 normal 2016-0 No 1,000 mL, Mem[facility] a saline 0.9% 3-30 Rate: 125 l IV 1,000 mL 23:13: ml/hr, Herm kevin 00 Infuse over: 8 hr, Route: IV, Dosing Weight 68.182 kg, Total Volume: 1,000, Start date: 08/07/15 18:13:00, Duration: 30 day, Stop date: 09/06/15 18:12:00 normal 2016-0 No 1,000 mL, Mem[facility] a saline 0.9% 3-30 Rate: 125 l IV 1,000 mL 23:13: ml/hr, Herm kevin 00 Infuse over: 8 hr, Route: IV, Dosing Weight 68.182 kg, Total Volume: 1,000, Start date: 08/07/15 18:13:00, Duration: 30 day, Stop date: 09/06/15 18:12:00 normal 2016-0 No 1,000 mL, Memori a saline 0.9% [...] 30 day, Stop date: 09/06/15 18:11:00 Saline 2016-0 No 10 ml, [facility] Flush 0.9% 3-30 Route: l 23:12: IVP, Drug [place] 00 Form: INJ, Dosing Weight 68.182, kg, PRN, PRN Line Flush, Start date: 08/07/15 18:12:00, Duration: 30 day, Stop date: 09/06/15 18:11:00 Saline 2016-0 No 10 ml, [facility] Flush 0.9% 3-30 Route: l 23:12: IVP, Drug [place] 00 Form: INJ, Dosing Weight 68.182, kg, PRN, PRN Line Flush, Start date: 08/07/15 18:12:00, Duration: 30 day, Stop date: 09/06/15 18:11:00 Saline 2016-0 No 10 ml, [facility] Flush 0.9% 3-30 Route: l 23:12: IVP, Drug [place] 00 Form: INJ, Dosing Weight 68.182, kg, PRN, PRN Line Flush, Start date: 08/07/15 18:12:00, Duration: 30 day, Stop date: 09/06/15 18:11:00 Saline 2016-0 No 10 ml, [facility] Flush 0.9% 3-30 Route: l 23:12: IVP, Drug [place] 00 Form: INJ, Dosing Weight 68.182, kg, PRN, PRN Line Flush, Start date: 08/07/15 18:12:00, Duration: 30 day, Stop date: 09/06/15 18:11:00 Saline 2016-0 No 10 ml, [facility] Flush 0.9% 3-30 Route: l 23:12: IVP, Drug [place] 00 Form: INJ, Dosing Weight 68.182, kg, PRN, PRN Line Flush, Start date: 08/07/15 18:12:00, Duration: 30 day, Stop date: 09/06/15 18:11:00 Saline 2016-0 No 10 ml, [facility] Flush 0.9% 3-30 Route: l 23:12: IVP, Drug [place] 00 Form: INJ, Dosing Weight 68.182, kg, PRN, PRN Line Flush, Start date: 08/07/15 18:12:00, Duration: 30 day, Stop date: 09/06/15 18:11:00 Saline 2016-0 No 10 ml, [facility] Flush 0.9% 3-30 Route: l 23:12: IVP, Drug Venkatesh 00 Form: INJ, Dosing Weight 68.182, kg, PRN, PRN Line Flush, Start date: 08/07/15 18:12:00, Duration: 30 day, Stop date: 09/06/15 18:11:00 Saline 2016-0 No 10 ml, [facility] Flush 0.9% 3-30 Route: l 23:12: IVP, Drug Venkatesh 00 Form: INJ, Dosing Weight 68.182, kg, PRN, PRN Line Flush, Start date: 08/07/15 18:12:00, Duration: 30 day, Stop date: 09/06/15 18:11:00 ziprasidone 2016-0 Yes 20 mg = 1 M emoria 20 MG Oral 3-30 cap, PO, l Capsule 22:54: QPM, # 180 Herm kevin [Geodon] 00 cap, 0 Refill(s) Symbicort 2016-0 Yes 2 puff, Memor ia 80/4.5 3-30 INHALATION l inhalation 22:54: , BID, # Her briggs aerosol 00 10.2 gm, 0 with Refill(s) adapter ziprasidone Yes 20 mg = 1 M emoria 20 MG Oral 3-30 cap, PO, l Capsule 22:54: QPM, # 180 Herm kevin [Geodon] 00 cap, 0 Refill(s) Symbicort 2016-0 Yes 2 puff, Mem[facility] ia 80/4.5 3-30 INHALATION l inhalation 22:54: , BID, # Her briggs aerosol 00 10.2 gm, 0 with Refill(s) adapter ziprasidone Yes 20 mg = 1 M emoria 20 MG Oral 3-30 cap, PO, l Capsule 22:54: QPM, # 180 Herm kevin [Geodon] 00 cap, 0 Refill(s) Symbicort 2016-0 Yes 2 puff, Memor ia 80/4.5 3-30 INHALATION l inhalation 22:54: , BID, # Her briggs aerosol 00 10.2 gm, 0 with Refill(s) adapter ziprasidone Yes 20 mg = 1 M emoria 20 MG Oral 3-30 cap, PO, l Capsule 22:54: QPM, # 180 Herm kevin [Geodon] 00 cap, 0 Refill(s) Symbicort 2016-0 Yes 2 puff, Memor ia 80/4.5 3-30 INHALATION l inhalation 22:54: , BID, # Her briggs aerosol 00 10.2 gm, 0 with Refill(s) adapter ziprasidone 0 Yes 20 mg = 1 M emoria 20 MG Oral 3-30 cap, PO, l Capsule 22:54: QPM, # 180 Herm kevin [Geodon] 00 cap, 0 Refill(s) Symbicort 2016-0 Yes 2 puff, Memor ia 80/4.5 3-30 INHALATION l inhalation 22:54: , BID, # Her briggs aerosol 00 10.2 gm, 0 with Refill(s) adapter ziprasidone 0 Yes 20 mg = 1 M emoria 20 MG Oral 3-30 cap, PO, l Capsule 22:54: QPM, # 180 Herm kevin [Geodon] 00 cap, 0 Refill(s) Symbicort 2016-0 Yes 2 puff, Memor ia 80/4.5 3-30 INHALATION l inhalation 22:54: , BID, # Her briggs aerosol 00 10.2 gm, 0 with Refill(s) adapter ziprasidone Yes 20 mg = 1 M emoria 20 MG Oral 3-30 cap, PO, l Capsule 22:54: QPM, # 180 Herm kevin [Geodon] 00 cap, 0 Refill(s) Symbicort 0 Yes 2 puff, Memor ia 80/4.5 3-30 INHALATION l inhalation 22:54: , BID, # briggs aerosol 00 10.2 gm, 0 with Refill(s) adapter ziprasidone Yes 20 mg = 1 M emoria 20 MG Oral 3-30 cap, PO, l Capsule 22:54: QPM, # 180 Herm kevin [Geodon] 00 cap, 0 Refill(s) Symbicort Yes 2 puff, Memor ia 80/4.5 3-30 INHALATION l inhalation 22:54: , BID, # briggs aerosol 00 10.2 gm, 0 with Refill(s) adapter ziprasidone Yes 20 mg = 1 M emoria 20 MG Oral 3-30 cap, PO, l Capsule 22:54: QPM, # 180 Herm kevin [Geodon] 00 cap, 0 Refill(s) Symbicort 0 Yes 2 puff, Memor ia 80/4.5 3-30 [...] cap, PO, l delayed 22:53: Daily, # Raajt n release 00 30 cap, 1 capsule Refill(s) 24 HR Yes 300 mg = 1 Memori a Bupropion 3-30 tab, PO, l Hydrochlori 22:53: Daily, # Hira gomez de 300 MG 00 30 tab, 0 Extended Refill(s) Release Tablet [Wellbutrin ] 24 HR Yes 225 mg = 3 Mem[facility] a venlafaxine 3-30 cap, PO, l 75 MG 22:53: Daily, # [place] Extended 00 30 cap, 0 Release Refill(s) Capsule [Effexor] atorvastati Yes 80 mg = 1 M emoria n 80 MG 3-30 tab, PO, l Oral Tablet 22:53: Bedtime, # [place] [Lipitor] 00 30 tab, 0 Refill(s) omeprazole Yes 20 mg = 1 Me moria 20 mg oral 3-30 cap, PO, l delayed 22:53: Daily, # Rajat n release 00 30 cap, 1 capsule Refill(s) 24 HR Yes 300 mg = 1 Mem[facility] a Bupropion 3-30 tab, PO, l Hydrochlori 22:53: Daily, # Hira gomez de 300 MG 00 30 tab, 0 [...] tab, PO, l Hydrochlori 22:53: Daily, Earnest gomez de 300 MG 00 30 tab, 0 [...] tab, PO, l Hydrochlori 22:53: Daily, Earnest Iniguez rmkevin de 300 MG 00 30 tab, 0 [...] tab, PO, l Hydrochlori 22:53: Daily, Earnest gomez de 300 MG 00 30 tab, 0 [...] tab, PO, l Hydrochlori 22:53: Daily, Earnest Iniguez rmann de 300 MG 00 30 tab, 0 [...] 3-30 tab, PO, l Hydrochlori 22:53: Daily, # Hira jason de 300 MG 00 30 [...] tab, PO, l Hydrochlori 22:53: Daily, Earnest Iniguez rmann de 300 MG 00 30 tab, 0 Extended Refill(s) Release Tablet [Wellbutrin ] 24 HR Yes 225 mg = 3 Mem[facility] a venlafaxine 3-30 cap, PO, l 75 MG 22:53: Daily, # Venkatesh Extended 00 30 cap, 0 Release Refill(s) Capsule [Effexor] atorvastati Yes 80 mg = 1 M emoria n 80 MG 3-30 tab, PO, l Oral Tablet 22:53: Bedtime, Earnest Riddle [Lipitor] 00 30 tab, 0 Refill(s) omeprazole Yes 20 mg = 1 Me moria 20 mg oral 3-30 cap, PO, l delayed 22:53: Daily, # Rajat n release 00 30 cap, 1 capsule Refill(s) 24 HR Yes 300 mg = 1 Mem[facility] a Bupropion 3-30 tab, PO, l Hydrochlori 22:53: Daily, # Hira gomez de 300 MG 00 30 tab, 0 [...] 3-30 tab, PO, l tablet, 22:52: Daily, Earnest conde extended 00 30 tab, 0 release Refill(s) [...] 3-30 tab, PO, l tablet, 22:52: Daily, Earnest conde extended 00 30 tab, 0 release Refill(s) meloxicam Yes 15 mg = 1 Mem oria 15 MG Oral 3-30 tab, PO, l Tablet 22:52: Daily, # Venkatesh [Mobic] 00 30 tab, 0 Refill(s) Amlodipine 0 Yes 1 tab, PO, M emoria 5 [...] tab, PO, l Tablet 22:52: Daily, # Venkatesh [Mobic] 00 30 tab, 0 Refill(s) Amlodipine [...] tab, PO, l Tablet 22:52: Daily, # Venkatesh [Mobic] 00 30 tab, 0 Refill(s) Amlodipine 0 Yes 1 tab, PO, M emoria 5 MG / 3-30 Daily, # l Hydrochloro 22:52: 30 tab, 0 H ermann thiazide 25 00 Refill(s) MG / valsartan 160 MG Oral Tablet [Exforge HCT 5/160/25] metoprolol 0 Yes 50 mg = 1 Me moria 50 mg oral 3-30 tab, PO, l tablet, 22:52: Daily, # Rajat n extended 00 30 tab, 0 release Refill(s) meloxicam 2016-0 Yes 15 mg = 1 Mem oria 15 MG Oral 3-30 tab, PO, l Tablet 22:52: Daily, # Venkatesh [Mobic] 00 30 tab, 0 Refill(s) Amlodipine 2015-0 Yes 1 tab, PO, M emoria 5 MG / 3-30 Daily, # l Hydrochloro 22:52: 30 tab, 0 H ermann thiazide 25 00 Refill(s) MG / valsartan 160 MG Oral Tablet [Exforge HCT 5/160/25] metoprolol 0 Yes 50 mg = 1 Me moria 50 mg oral 3-30 tab, PO, l tablet, 22:52: Daily, # Rajat n extended 00 30 tab, 0 release Refill(s) meloxicam Yes 15 mg = 1 Mem oria 15 MG Oral 3-30 tab, PO, l Tablet 22:52: Daily, # Venkatesh [Eddieic] 00 30 tab, 0 Refill(s) Amlodipine 0 Yes 1 tab, PO, M emoria 5 MG / 3-30 Daily, # l Hydrochloro 22:52: 30 tab, 0 H ermann thiazide 25 00 Refill(s) MG / valsartan 160 MG Oral Tablet [Exforge HCT 5/160/25] metoprolol Yes 50 mg = 1 Me moria 50 mg oral 3-30 tab, PO, l tablet, 22:52: Daily, # Rajat n extended 00 30 tab, 0 release Refill(s) meloxicam 0 Yes 15 mg = 1 Mem oria 15 MG Oral 3-30 tab, PO, l Tablet 22:52: Daily, # Venkatesh [Mobic] 00 30 tab, 0 Refill(s) Amlodipine 0 Yes 1 tab, PO, M emoria 5 MG / 3-30 Daily, # l Hydrochloro 22:52: 30 tab, 0 H ermann thiazide 25 00 Refill(s) MG / valsartan 160 MG Oral Tablet [Exforge HCT 5/160/25] metoprolol 0 Yes 50 mg = 1 Me moria 50 mg oral 3-30 tab, PO, l tablet, 22:52: Daily, # Rajat n extended 00 30 tab, 0 release Refill(s) meloxicam 0 Yes 15 mg = 1 Mem oria 15 MG Oral 3-30 tab, PO, l Tablet 22:52: Daily, # Venkatesh [Mobic] 00 30 tab, 0 Refill(s) Amlodipine 20160 Yes 1 tab, PO, M emoria 5 [...] tab, PO, l Tablet 22:52: Daily, # Venkatesh [Mobic] 00 30 tab, 0 Refill(s) levothyroxi Yes 125 Memori a ne 125 mcg [...] Rajat n 00 tab, 0 Refill(s) levothyroxi 2016-0 Yes 125 Memori a ne 125 mcg 3-30 microgram l (0.125 mg) 22:51: = 1 tab, Her briggs oral tablet 00 PO, Daily, # 30 tab, 0 Refill(s) diazepam 5 2016-0 Yes 5 mg = 1 Mem oria mg oral 3-30 tab, PO, l tablet 22:51: BID, # 30 Rajat n 00 tab, 0 Refill(s) levothyroxi 2015-0 Yes 125 Memori a ne 125 mcg 3-30 microgram l (0.125 mg) 22:51: = 1 tab, Her briggs oral tablet 00 PO, Daily, # 30 tab, 0 Refill(s) diazepam 5 2015-0 Yes 5 mg = 1 Mem oria mg oral 3-30 tab, PO, l tablet 22:51: BID, # 30 Rajat n 00 tab, 0 Refill(s) levothyroxi 2015-0 Yes 125 Memori a ne 125 mcg 3-30 microgram l (0.125 mg) 22:51: = 1 tab, Her briggs oral tablet 00 PO, Daily, # 30 tab, 0 Refill(s) diazepam 5 2015-0 Yes 5 mg = 1 Mem oria mg oral 3-30 tab, PO, l tablet 22:51: BID, # 30 Rajat n 00 tab, 0 Refill(s) levothyroxi 2015-0 Yes 125 Memori a ne 125 mcg 3-30 microgram l (0.125 mg) 22:51: = 1 tab, Her briggs oral tablet 00 PO, Daily, # 30 tab, 0 Refill(s) diazepam 5 2015-0 Yes 5 mg = 1 Mem oria mg oral 3-30 tab, PO, l tablet 22:51: BID, # 30 Rajat n 00 tab, 0 Refill(s) levothyroxi 2015-0 Yes 125 Memori a ne 125 mcg 3-30 microgram l (0.125 mg) 22:51: = 1 tab, Her briggs oral tablet 00 PO, Daily, # 30 tab, 0 Refill(s) diazepam 5 2016-0 Yes 5 mg = 1 Mem oria mg oral 3-30 tab, PO, l tablet 22:51: BID, # 30 Rajat n 00 tab, 0 Refill(s) levothyroxi 2015-0 Yes 125 Memori a ne 125 mcg 3-30 microgram l (0.125 mg) 22:51: = 1 tab, Her briggs oral tablet 00 PO, Daily, # 30 tab, 0 Refill(s) diazepam 5 2016-0 Yes 5 mg = 1 Mem oria mg oral 3-30 tab, PO, l tablet 22:51: BID, # 30 Rajat n 00 tab, 0 Refill(s) Sodium 2016-0 No 1,000 mL, Memori a Chloride 3-30 1,000 l 0.154 22:20: ml/hr, [place] MEQ/ML 00 Infuse Injectable Over: 1 Solution Hour, Route: IV, ONCE, Priority: STAT, Dosing Weight 68.182 kg, Start date: 08/07/15 17:20:00, Duration: 1 doses or times, Stop date: 08/07/15 17:20:00 Sodium 2016-0 No 1,000 mL, Mem[facility] a Chloride 3-30 1,000 l 0.154 22:20: ml/hr, [place] MEQ/ML 00 Infuse Injectable Over: 1 Solution Hour, Route: IV, ONCE, Priority: STAT, Dosing Weight 68.182 kg, Start date: 08/07/15 17:20:00, Duration: 1 doses or times, Stop date: 08/07/15 17:20:00 Sodium 2016-0 No 1,000 mL, Mem[facility] a Chloride 3-30 1,000 l 0.154 22:20: ml/hr, Venkatesh MEQ/ML 00 Infuse Injectable Over: 1 Solution Hour, Route: IV, ONCE, Priority: STAT, Dosing Weight 68.182 kg, Start date: 08/07/15 17:20:00, Duration: 1 doses or times, Stop date: 08/07/15 17:20:00 Sodium 2016-0 No 1,000 mL, Memori a Chloride 3-30 1,000 l 0.154 22:20: ml/hr, [place] MEQ/ML 00 Infuse Injectable Over: 1 Solution Hour, Route: IV, ONCE, Priority: STAT, Dosing Weight 68.182 kg, Start date: 08/07/15 17:20:00, Duration: 1 doses or times, Stop date: 08/07/15 17:20:00 Sodium 2016-0 No 1,000 mL, Memori a Chloride 3-30 1,000 l 0.154 22:20: ml/hr, Venkatesh MEQ/ML 00 Infuse Injectable Over: 1 Solution Hour, Route: IV, ONCE, Priority: STAT, Dosing Weight 68.182 kg, Start date: 08/07/15 17:20:00, Duration: 1 doses or times, Stop date: 08/07/15 17:20:00 Sodium 2016-0 No 1,000 mL, Memori a Chloride 3-30 1,000 l 0.154 22:20: ml/hr, [place] MEQ/ML 00 Infuse Injectable Over: 1 Solution Hour, Route: IV, ONCE, Priority: STAT, Dosing Weight 68.182 kg, Start date: 08/07/15 17:20:00, Duration: 1 doses or times, Stop date: 08/07/15 17:20:00 Sodium 2016-0 No 1,000 mL, Memori a Chloride 3-30 1,000 l 0.154 22:20: ml/hr, [place] MEQ/ML 00 Infuse Injectable Over: 1 Solution Hour, Route: IV, ONCE, Priority: STAT, Dosing Weight 68.182 kg, Start date: 08/07/15 17:20:00, Duration: 1 doses or times, Stop date: 08/07/15 17:20:00 Sodium 2016-0 No 1,000 mL, Memori a Chloride 3-30 1,000 l 0.154 22:20: ml/hr, [place] MEQ/ML 00 Infuse Injectable Over: 1 Solution Hour, Route: IV, ONCE, Priority: STAT, Dosing Weight 68.182 kg, Start date: 08/07/15 17:20:00, Duration: 1 doses or times, Stop date: 08/07/15 17:20:00 Sodium 2016-0 No 1,000 mL, Memori a Chloride 3-30 1,000 l 0.154 22:20: ml/hr, Venkatesh MEQ/ML 00 Infuse Injectable Over: [...] Memoria 3-30 Route: l 22:14: CHEW, Drug [place] 00 form: CHEWTAB, ONCE, Dosing Weight 68.182, kg, Priority: STAT, Start date: 08/07/15 17:14:00, Stop date: 08/07/15 17:14:00 Aspirin 2016-0 No 324 mg, Memoria 3-30 Route: l 22:14: CHEW, Drug Venkatesh 00 form: CHEWTAB, ONCE, Dosing Weight 68.182, kg, Priority: STAT, Start date: 08/07/15 17:14:00, Stop date: 08/07/15 17:14:00 Aspirin 2016-0 No 324 mg, Memoria 3-30 Route: l 22:14: CHEW, Drug [place] 00 form: CHEWTAB, ONCE, Dosing Weight 68.182, kg, Priority: STAT, Start date: 08/07/15 17:14:00, Stop date: 08/07/15 17:14:00 Aspirin 2016-0 No 324 mg, Memoria 3-30 Route: l 22:14: CHEW, Drug [place] 00 form: CHEWTAB, ONCE, Dosing Weight 68.182, kg, Priority: STAT, Start date: 08/07/15 17:14:00, Stop date: 08/07/15 17:14:00 Aspirin 2016-0 No 324 mg, Memoria 3-30 Route: l 22:14: CHEW, Drug Venkatesh 00 form: CHEWTAB, ONCE, Dosing Weight 68.182, kg, Priority: STAT, Start date: 08/07/15 17:14:00, Stop date: 08/07/15 17:14:00 Aspirin 2016-0 No 324 mg, Memoria 3-30 Route: l 22:14: CHEW, Drug [place] 00 form: CHEWTAB, ONCE, Dosing Weight 68.182, kg, Priority: STAT, Start date: 08/07/15 17:14:00, Stop date: 08/07/15 17:14:00 Aspirin 2016-0 No 324 mg, Mem[facility] 3-30 Route: l 22:14: CHEW, Drug Venkatesh 00 form: CHEWTAB, ONCE, Dosing Weight 68.182, kg, Priority: STAT, Start date: 08/07/15 17:14:00, Stop date: 08/07/15 17:14:00 Aspirin No 324 mg, Memoria 3-30 Route: l 22:14: CHEW, Drug form: CHEWTAB, ONCE, Dosing Weight 68.182, kg, Priority: STAT, Start date: 08/07/15 17:14:00, Stop date: 08/07/15 17:14:00 Saline No Notes: Memoria Flush 0.9% 3-30 (Same as: l 20:18: BD Venkatesh 00 Posiflush) Saline No Notes: [facility] Flush 0.9% 3-30 (Same as: l 20:18: BD [place] 00 Posiflush) Saline No Notes: [facility] Flush 0.9% 3-30 (Same as: l 20:18: BD [place] 00 Posiflush) Saline No Notes: [facility] Flush 0.9% 3-30 (Same as: l 20:18: BD [place] 00 Posiflush) Saline No Notes: [facility] Flush 0.9% 3-30 (Same as: l 20:18: BD [place] 00 Posiflush) Saline No Notes: [facility] Flush 0.9% 3-30 (Same as: l 20:18: BD [place] 00 Posiflush) Saline No Notes: [facility] Flush 0.9% 3-30 (Same as: l 20:18: BD [place] 00 Posiflush) Saline No Notes: [facility] Flush 0.9% 3-30 (Same as: l 20:18: BD Venkatesh 00 Posiflush) Saline No Notes: [facility] Flush 0.9% 3-30 (Same as: l 20:18: BD Venkatesh 00 Posiflush) Morphine No 2 mg, Memoria 2-27 Route: l 22:17: IVP, ONCE, Dosing Weight 74.545, kg, Priority: STAT, Start date: 07/06/15 16:17:00, Stop date: 07/06/15 16:17:00 Ondansetron 2016-0 No 4 mg, Memor ia 2-27 Route: l 22:17: IVP, ONCE, [place] 00 Dosing Weight 74.545, kg, Priority: STAT, Start date: 07/06/15 16:17:00, Stop date: 07/06/15 16:17:00 Saline 2016-0 No Notes: [facility] Flush 0.9% 2-27 (Same as: l 22:17: BD [place] 00 Posiflush) Ativan 2016-0 No 0.5 mg, Memoria 2-27 Route: l 22:17: IVP, Drug Venkatesh 00 form: INJ, ONCE, Dosing Weight 74.545, kg, Priority: STAT, Start date: 07/06/15 16:17:00, Stop date: 07/06/15 16:17:00 Aspirin 2016-0 No 324 mg, Memoria 2-27 Route: PO, l 22:17: ONCE, [place] 00 Dosing Weight 74.545, kg, Priority: STAT, Start date: 07/06/15 16:17:00, Stop date: 07/06/15 16:17:00 Morphine 2016-0 No 2 mg, [facility] 2-27 Route: l 22:17: IVP, ONCE, Dosing Weight 74.545, kg, Priority: STAT, Start date: 07/06/15 16:17:00, Stop date: 07/06/15 16:17:00 Ondansetron 2016-0 No 4 mg, [facility] 2-27 Route: l 22:17: IVP, ONCE, Venkatesh 00 Dosing Weight 74.545, kg, Priority: STAT, Start date: 07/06/15 16:17:00, Stop date: 07/06/15 16:17:00 Saline 2016-0 No Notes: [facility] Flush 0.9% 2-27 (Same as: l 22:17: BD [place] 00 Posiflush) Ativan 2016-0 No 0.5 mg, [facility] 2-27 Route: l 22:17: IVP, Drug [place] 00 form: INJ, ONCE, Dosing Weight 74.545, kg, Priority: STAT, Start date: 07/06/15 16:17:00, Stop date: 07/06/15 16:17:00 Aspirin 2016-0 No 324 mg, [facility] 2-27 Route: PO, l 22:17: ONCE, Dosing Weight 74.545, kg, Priority: STAT, Start date: 07/06/15 16:17:00, Stop date: 07/06/15 16:17:00 Morphine 2016-0 No 2 mg, [facility] 2-27 Route: l 22:17: IVP, ONCE, Dosing Weight 74.545, kg, Priority: STAT, Start date: 07/06/15 16:17:00, Stop date: 07/06/15 16:17:00 Ondansetron 2016-0 No 4 mg, [facility] 2-27 Route: l 22:17: IVP, ONCE, Dosing Weight 74.545, kg, Priority: STAT, Start date: 07/06/15 16:17:00, Stop date: 07/06/15 16:17:00 Saline 2016-0 No Notes: [facility] Flush 0.9% 2- (Same as: l 22:17: BD Posiflush) Ativan 2016-0 No 0.5 mg, [facility] 2-27 Route: l 22:17: IVP, Drug form: INJ, ONCE, Dosing Weight 74.545, kg, Priority: STAT, Start date: 07/06/15 16:17:00, Stop date: 07/06/15 16:17:00 Aspirin 2016-0 No 324 mg, [facility] 2-27 Route: PO, l 22:17: ONCE, Dosing Weight 74.545, kg, Priority: STAT, Start date: 07/06/15 16:17:00, Stop date: 07/06/15 16:17:00 Morphine 2016-0 No 2 mg, [facility] 2-27 [...] 0.9% 2-27 (Same as: l 22:17: BD Venkatesh 00 Posiflush) Ativan 2015-0 No 0.5 mg, [facility] 2-27 Route: l 22:17: IVP, Drug Venkatesh 00 form: INJ, ONCE, Dosing Weight 74.545, kg, Priority: STAT, Start date: 07/06/15 16:17:00, Stop date: 07/06/15 16:17:00 Aspirin 2015-0 No 324 mg, [facility] 2-27 Route: PO, l 22:17: ONCE, Dosing Weight 74.545, kg, Priority: STAT, Start date: 07/06/15 16:17:00, Stop date: 07/06/15 16:17:00 Morphine 2016-0 No 2 mg, [facility] 2-27 [...] 0.9% 2-27 (Same as: l 22:17: BD [place] 00 Posiflush) Ativan 2015-0 No 0.5 mg, [facility] 2-27 Route: l 22:17: IVP, Drug Venkatesh 00 form: INJ, ONCE, Dosing Weight 74.545, kg, Priority: STAT, Start date: 07/06/15 16:17:00, Stop date: 07/06/15 16:17:00 Aspirin 2015-0 No 324 mg, [facility] 2-27 Route: PO, l 22:17: ONCE, Dosing Weight 74.545, kg, Priority: STAT, Start date: 07/06/15 16:17:00, Stop date: 07/06/15 16:17:00 Morphine 2016-0 No 2 mg, [facility] 2-27 Route: l 22:17: IVP, ONCE, Dosing Weight 74.545, kg, Priority: STAT, Start date: 07/06/15 16:17:00, Stop date: 07/06/15 16:17:00 Ondansetron 2016-0 No 4 mg, [facility] 2-27 Route: l 22:17: IVP, ONCE, Dosing Weight 74.545, kg, Priority: STAT, Start date: 07/06/15 16:17:00, Stop date: 07/06/15 16:17:00 Saline 2015-0 No Notes: [facility] Flush 0.9% 2-27 (Same as: l 22:17: BD Posiflush) Ativan 2016-0 No 0.5 mg, [facility] 2-27 Route: l 22:17: IVP, Drug form: INJ, ONCE, Dosing Weight 74.545, kg, Priority: STAT, Start date: 07/06/15 16:17:00, Stop date: 07/06/15 16:17:00 Aspirin 2016-0 No 324 mg, [facility] 2-27 Route: PO, l 22:17: ONCE, Dosing Weight 74.545, kg, Priority: STAT, Start date: 07/06/15 16:17:00, Stop date: 07/06/15 16:17:00 Morphine 2016-0 No 2 mg, [facility] 2-27 Route: l 22:17: IVP, ONCE, Dosing Weight 74.545, kg, Priority: STAT, Start date: 07/06/15 16:17:00, Stop date: 07/06/15 16:17:00 Ondansetron 2016-0 No 4 mg, [facility] 2- Route: l 22:17: IVP, ONCE, Dosing Weight 74.545, kg, Priority: STAT, Start date: 07/06/15 16:17:00, Stop date: 07/06/15 16:17:00 Saline 2016-0 No Notes: [facility] Flush 0.9% 2-27 (Same as: l 22:17: BD Venkatesh 00 Posiflush) Ativan 2016-0 No 0.5 mg, [facility] 2-27 Route: l 22:17: IVP, Drug Venkatesh 00 form: INJ, ONCE, Dosing Weight 74.545, kg, Priority: STAT, Start date: 07/06/15 16:17:00, Stop date: 07/06/15 16:17:00 Aspirin 2016-0 No 324 mg, [facility] 2-27 Route: PO, l 22:17: ONCE, [place] Dosing Weight 74.545, kg, Priority: STAT, Start date: 07/06/15 16:17:00, Stop date: 07/06/15 16:17:00 Morphine 2016-0 No 2 mg, [facility] 2- Route: l 22:17: IVP, ONCE, Venkatesh 00 Dosing Weight 74.545, kg, Priority: STAT, Start date: 07/06/15 16:17:00, Stop date: 07/06/15 16:17:00 Ondansetron 2016-0 No 4 mg, [facility] 07-06 Route: l 22:17: IVP, ONCE, Dosing Weight 74.545, kg, Priority: STAT, Start date: 07/06/15 16:17:00, Stop date: 07/06/15 16:17:00 Saline 2015-0 No Notes: [facility] Flush 0.9% 07-06 (Same as: l 22:17: BD [place] 00 Posiflush) Ativan 2015-0 No 0.5 mg, [facility] 2-27 Route: l 22:17: IVP, Drug [place] 00 form: INJ, ONCE, Dosing Weight 74.545, kg, Priority: STAT, Start date: 07/06/15 16:17:00, Stop date: 07/06/15 16:17:00 Aspirin 2015-0 No 324 mg, [facility] 2-27 Route: PO, l 22:17: ONCE, Venkatesh 00 Dosing Weight 74.545, kg, Priority: STAT, Start date: 07/06/15 16:17:00, Stop date: 07/06/15 16:17:00 Ativan 2016-0 No 0.5 mg, [facility] 2-27 Route: l 22:17: IVP, Drug [place] 00 form: INJ, ONCE, Dosing Weight 74.545, kg, Priority: STAT, Start date: 07/06/15 16:17:00, Stop date: 07/06/15 16:17:00 Aspirin 2016-0 No 324 mg, [facility] 2-27 Route: PO, l 22:17: ONCE, Dosing Weight 74.545, kg, Priority: STAT, Start date: 07/06/15 16:17:00, Stop date: 07/06/15 16:17:00 Morphine 2016-0 No 2 mg, [facility] 2-27 Route: l 22:17: IVP, ONCE, Dosing Weight 74.545, kg, Priority: STAT, Start date: 07/06/15 16:17:00, Stop date: 07/06/15 16:17:00 Ondansetron 2016-0 No 4 mg, [facility] 2- Route: l 22:17: IVP, ONCE, Dosing Weight 74.545, kg, Priority: STAT, Start date: 07/06/15 16:17:00, Stop date: 07/06/15 16:17:00 Saline 2016-0 No Notes: [facility] Flush 0.9% 07-06 (Same as: l 22:17: BD Posiflush) Famotidine 2016-0 No 20 mg, [facility] 2-27 Route: l 22:16: IVP, ONCE, Dosing Weight 74.545, kg, Priority: STAT, Start date: 07/06/15 16:16:00, Stop date: 07/06/15 16:16:00 Famotidine 2016-0 No 20 mg, [facility] 2-27 Route: l 22:16: IVP, ONCE, Dosing Weight 74.545, kg, Priority: STAT, Start date: 07/06/15 16:16:00, Stop date: 07/06/15 16:16:00 Famotidine 2016-0 No 20 mg, [facility] 2-27 Route: l 22:16: IVP, ONCE, Dosing Weight 74.545, kg, Priority: STAT, Start date: 07/06/15 16:16:00, Stop date: 07/06/15 16:16:00 Famotidine 2016-0 No 20 mg, [facility] 2-27 Route: l 22:16: IVP, ONCE, [place] 00 Dosing Weight 74.545, kg, Priority: STAT, Start date: 07/06/15 16:16:00, Stop date: 07/06/15 16:16:00 Famotidine 2016-0 No 20 mg, [facility] 2-27 Route: l 22:16: IVP, ONCE, [place] 00 Dosing Weight 74.545, kg, Priority: STAT, Start date: 07/06/15 16:16:00, Stop date: 07/06/15 16:16:00 Famotidine 2016-0 No 20 mg, [facility] 2-27 Route: l 22:16: IVP, ONCE, Dosing Weight 74.545, kg, Priority: STAT, Start date: 07/06/15 16:16:00, Stop date: 07/06/15 16:16:00 Famotidine 2016-0 No 20 mg, [facility] 2-27 Route: l 22:16: IVP, ONCE, Venkatesh 00 Dosing Weight 74.545, kg, Priority: STAT, Start date: 07/06/15 16:16:00, Stop date: 07/06/15 16:16:00 Famotidine 2016-0 No 20 mg, [facility] 2-27 Route: l 22:16: IVP, ONCE, Venkatesh 00 Dosing Weight 74.545, kg, Priority: STAT, Start date: 07/06/15 16:16:00, Stop date: 07/06/15 16:16:00 Famotidine 2016-0 No 20 mg, [facility] 2-27 Route: l 22:16: IVP, ONCE, Venkatesh 00 Dosing Weight 74.545, kg, Priority: STAT, Start date: 07/06/15 16:16:00, Stop date: 07/06/15 16:16:00 Valium 2016-0 Yes 0 [facility] 2-27 Refill(s) l 22:14: [place] 00 Valium 2016-0 Yes 0 [facility] 2-27 Refill(s) l 22:14: Venkatesh 00 Valium 2016-0 Yes 0 [facility] 2-27 Refill(s) l 22:14: [place] 00 Valium 2016-0 Yes 0 [facility] 2-27 Refill(s) l 22:14: [place] 00 Valium 2016-0 Yes 0 [facility] 2-27 Refill(s) l 22:14: [place] 00 Valium 2016-0 Yes 0 [facility] 2-27 Refill(s) l 22:14: Venkatesh 00 Valium 2016-0 Yes 0 [facility] 2-27 Refill(s) l 22:14: [place] 00 Valium 2016-0 Yes 0 [facility] 2-27 Refill(s) l 22:14: [place] 00 Valium 2016-0 Yes 0 [facility] 2-27 Refill(s) l 22:14: Amlodipine 2016-0 Yes 1 tab, PO, M emoria 10 MG / 2-27 Daily, 0 l valsartan 22:11: Refill(s) Her briggs 160 MG Oral 00 Tablet [Exforge 10] Omeprazole 2016-0 Yes PO, Daily, M emoria 2-27 0 l 22:11: Refill(s) Amlodipine 2015-0 Yes 1 tab, PO, M emoria 10 MG / 2-27 Daily, 0 l valsartan 22:11: Refill(s) Her briggs 160 MG Oral 00 Tablet [Exforge 10] Omeprazole 2016-0 Yes PO, Daily, M emoria 2-27 0 l 22:11: Refill(s) Amlodipine 2016-0 Yes 1 tab, PO, M emoria 10 MG / 2-27 Daily, 0 l valsartan 22:11: Refill(s) Her briggs 160 MG Oral 00 Tablet [Exforge 10] Omeprazole 2016-0 Yes PO, Daily, M emoria 2-27 0 l 22:11: Refill(s) Amlodipine 2016-0 Yes 1 tab, PO, M emoria 10 MG / 2-27 Daily, 0 l valsartan 22:11: Refill(s) Her briggs 160 MG Oral 00 Tablet [Exforge 10] Omeprazole 2016-0 Yes PO, Daily, M emoria 2-27 0 l 22:11: Refill(s) Amlodipine 2016-0 Yes 1 tab, PO, M emoria 10 MG / 2-27 Daily, 0 l valsartan 22:11: Refill(s) Her chester 160 MG Oral 00 Tablet [Exforge ] Omeprazole 2016-0 Yes PO, Daily, M emoria 27 0 l 22:11: Refill(s) Amlodipine 2016-0 Yes 1 tab, PO, M emoria 10 MG / -27 Daily, 0 l valsartan 22:11: Refill(s) Her chester 160 MG Oral 00 Tablet [Exforge ] Omeprazole 2016-0 Yes PO, Daily, M emoria 27 0 l 22:11: Refill(s) Amlodipine 2016-0 Yes 1 tab, PO, M emoria 10 MG / -27 Daily, 0 l valsartan 22:11: Refill(s) Her chester 160 MG Oral 00 Tablet [Exforge ] Omeprazole 2016-0 Yes PO, Daily, M emoria 07-06 0 l 22:11: Refill(s) Amlodipine 2016-0 Yes 1 tab, PO, M emoria 10 MG / -27 Daily, 0 l valsartan 22:11: Refill(s) Her chester 160 MG Oral 00 Tablet [Exforge ] Omeprazole 2016-0 Yes PO, Daily, M emoria 07-06 0 l 22:11: Refill(s) Amlodipine 2016-0 Yes 1 tab, PO, M emoria 10 MG / -27 Daily, 0 l valsartan 22:11: Refill(s) Her chester 160 MG Oral 00 Tablet [Exforge ] Omeprazole 2016-0 Yes PO, Daily, M emoria 07-06 0 l 22:11: Refill(s) Crestor 2016-0 Yes PO, [facility] 07-06 Bedtime, 0 l 22:10: Refill(s) metoprolol 2016-0 Yes BID, 0 [facility] ia tartrate 07-06 Refill(s) l 22:10: Levothroid 2016-0 Yes PO, Daily, M emoria 07-06 0 l 22:10: Refill(s) Crestor 2016-0 Yes PO, [facility] 2-27 Bedtime, 0 l 22:10: Refill(s) metoprolol 2016-0 Yes BID, 0 [facility] ia tartrate 2-27 Refill(s) l 22:10: Levothroid 20160 Yes PO, Daily, M emoria 227 0 l 22:10: Refill(s) Crestor 2015-0 Yes PO, [facility]oria 2- Bedtime, 0 l 22:10: Refill(s) metoprolol 20160 Yes BID, 0 [facility] ia tartrate 2-27 Refill(s) l 22:10: Levothroid 0 Yes PO, Daily, M emoria 2 0 l 22:10: Refill(s) Crestor 0 Yes PO, [facility] 2- Bedtime, 0 l 22:10: Refill(s) metoprolol 0 Yes BID, 0 [facility] tartrate 2-27 Refill(s) l 22:10: Levothroid 0 Yes PO, Daily, M emoria 227 0 l 22:10: Refill(s) Crestor 0 Yes PO, [facility]oria 2 Bedtime, 0 l 22:10: Refill(s) metoprolol 0 Yes BID, 0 [facility] ia tartrate 2-27 Refill(s) l 22:10: Levothroid 0 Yes PO, Daily, M emoria 227 0 l 22:10: Refill(s) Crestor 2015-0 Yes PO, [facility] 2-27 Bedtime, 0 l 22:10: Refill(s) metoprolol 2016-0 Yes BID, 0 [facility] ia tartrate 2-27 Refill(s) l 22:10: Levothroid 2015-0 Yes PO, Daily, M emoria 2-27 0 l 22:10: Refill(s) Crestor 0 Yes PO, [facility] 2-27 Bedtime, 0 l 22:10: Refill(s) metoprolol 2016-0 Yes BID, 0 [facility] ia tartrate 2-27 Refill(s) l 22:10: Levothroid 2016-0 Yes PO, Daily, M emoria 227 0 l 22:10: Refill(s) Crestor 2015-0 Yes PO, [facility] 227 Bedtime, 0 l 22:10: Refill(s) metoprolol 2016-0 Yes BID, 0 [facility] ia tartrate 2-27 Refill(s) l 22:10: Levothroid 2016-0 Yes PO, Daily, M emoria 227 0 l 22:10: Refill(s) Crestor 2016-0 Yes PO, [facility] 227 Bedtime, 0 l 22:10: Refill(s) metoprolol 2015-0 Yes BID, 0 [facility] ia tartrate 2-27 Refill(s) l 22:10: Levothroid 2015-0 Yes PO, Daily, M emoria 2 0 l 22:10: Refill(s) Wellbutrin 0 Yes PO, 0 Memori a 2-27 Refill(s) l 22:09: Advair 0 Yes 1 puff, [facility] Diskus 100 2-27 INHALATION l mcg-50 mcg 22:09: , BID, 0 Her briggs inhalation 00 Refill(s) powder Wellbutrin 2015-0 Yes PO, 0 Memori a 2-27 Refill(s) l 22:09: Advair 2015-0 Yes 1 puff, [facility] Diskus 100 2-27 INHALATION l mcg-50 mcg 22:09: , BID, 0 Her briggs inhalation 00 Refill(s) powder Wellbutrin 2016-0 Yes PO, 0 Memori a 2-27 Refill(s) l 22:09: Advair 2015-0 Yes 1 puff, [facility] Diskus 100 2-27 INHALATION l mcg-50 mcg 22:09: , BID, 0 Her briggs inhalation 00 Refill(s) powder Wellbutrin 2015-0 Yes PO, 0 Memori a 2-27 Refill(s) l 22:09: Advair 2015-0 Yes 1 puff, [facility] Diskus 100 2-27 INHALATION l mcg-50 mcg 22:09: , BID, 0 Her briggs inhalation 00 Refill(s) powder Wellbutrin 2016-0 Yes PO, 0 Memori a 2-27 Refill(s) l 22:09: Venkatesh Advair [id number] Yes 1 puff, [facility] Diskus 100 2-27 INHALATION l mcg-50 mcg 22:09: , BID, 0 Her brgigs inhalation 00 Refill(s) powder Wellbutrin 2016-0 Yes PO, 0 Memori a 2-27 Refill(s) l 22:09: [place] Advair 0 Yes 1 puff, [facility] Diskus 100 2-27 INHALATION l mcg-50 mcg 22:09: , BID, 0 Her briggs inhalation 00 Refill(s) powder Wellbutrin 2015-0 Yes PO, 0 Memori a 2-27 Refill(s) l 22:09: Venkatesh Advair Yes 1 puff, [facility] Diskus 100 2-27 INHALATION l mcg-50 mcg 22:09: , BID, 0 Her briggs inhalation 00 Refill(s) powder Wellbutrin 0 Yes PO, 0 Memori a 2-27 Refill(s) l 22:09: [place] Advair Yes 1 puff, [facility] Diskus 100 2-27 INHALATION l mcg-50 mcg 22:09: , BID, 0 Her briggs inhalation 00 Refill(s) powder Wellbutrin 2015-0 Yes PO, 0 Memori a 2-27 Refill(s) l 22:09: [place] Advair 0 Yes 1 puff, [facility] Diskus 100 2-27 INHALATION l mcg-50 mcg 22:09: , BID, 0 Her briggs inhalation 00 Refill(s) powder clindamycin Yes 300 mg = 1 [facility] 300 mg oral 2-12 cap, PO, l capsule 22:47: Q6H, X 10 Queenie nn 00 day, # 40 cap, 0 Refill(s) tramadol Yes 50 mg = 1 Vic josue hydrochlori 2-12 tab, PO, l de 50 MG 22:47: Q6H, PRN [place] nn Oral Tablet 00 Pain, X 10 day, # 40 tab, 0 Refill(s) clindamycin 2016-0 Yes 300 mg = 1 [facility] 300 mg oral 2-12 cap, PO, l capsule 22:47: Q6H, X 10 [place] nn 00 day, # 40 cap, 0 Refill(s) tramadol 20160 Yes 50 mg = 1 Vic josue hydrochlori 2-12 tab, PO, l de 50 MG 22:47: Q6H, PRN [place] nn Oral Tablet 00 Pain, X 10 day, # 40 tab, 0 Refill(s) clindamycin 20160 Yes 300 mg = 1 [facility] 300 mg oral 2-12 cap, PO, l capsule 22:47: Q6H, X 10 Queenie nn 00 day, # 40 cap, 0 Refill(s) tramadol 0 Yes 50 mg = 1 Vic josue hydrochlori 2-12 tab, PO, l de 50 MG 22:47: Q6H, PRN [place] nn Oral Tablet 00 Pain, X 10 day, # 40 tab, 0 Refill(s) clindamycin 20160 Yes 300 mg = 1 [facility] 300 mg oral 2-12 cap, PO, l capsule 22:47: Q6H, X 10 [place] nn 00 day, # 40 cap, 0 Refill(s) tramadol 20160 Yes 50 mg = 1 Vic josue hydrochlori 2-12 tab, PO, l de 50 MG 22:47: Q6H, PRN [place] nn Oral Tablet 00 Pain, X 10 day, # 40 tab, 0 Refill(s) clindamycin 20160 Yes 300 mg = 1 [facility] 300 mg oral 2-12 cap, PO, l capsule 22:47: Q6H, X 10 [place] nn 00 day, # 40 cap, 0 Refill(s) tramadol 20160 Yes 50 mg = 1 Vic josue hydrochlori 2-12 tab, PO, l de 50 MG 22:47: Q6H, PRN [place] nn Oral Tablet 00 Pain, X 10 day, # 40 tab, 0 Refill(s) clindamycin 20160 Yes 300 mg = 1 [facility] 300 mg oral 2-12 cap, PO, l capsule 22:47: Q6H, X 10 [place] nn 00 day, # 40 cap, 0 Refill(s) tramadol 2016-0 Yes 50 mg = 1 Vic josue hydrochlori 2-12 tab, PO, l de 50 MG 22:47: Q6H, PRN [place] nn Oral Tablet 00 Pain, X 10 day, # 40 tab, 0 Refill(s) clindamycin 2016-0 Yes 300 mg = 1 [facility] 300 mg oral 2-12 cap, PO, l capsule 22:47: Q6H, X 10 Queen[place] nn 00 day, # 40 cap, 0 Refill(s) tramadol 2016-0 Yes 50 mg = 1 Vic josue hydrochlori 2-12 tab, PO, l de 50 MG 22:47: Q6H, PRN [place] nn Oral Tablet 00 Pain, X 10 day, # 40 tab, 0 Refill(s) clindamycin 2016-0 Yes 300 mg = 1 [facility] 300 mg oral 2-12 cap, PO, l capsule 22:47: Q6H, X 10 [place] nn 00 day, # 40 cap, 0 Refill(s) tramadol 2016-0 Yes 50 mg = 1 Vic josue hydrochlori 2-12 tab, PO, l de 50 MG 22:47: Q6H, PRN [place] nn Oral Tablet 00 Pain, X 10 day, # 40 tab, 0 Refill(s) clindamycin 2016-0 Yes 300 mg = 1 [facility] 300 mg oral 2-12 cap, PO, l capsule 22:47: Q6H, X 10 [place] nn 00 day, # 40 cap, 0 Refill(s) tramadol 2016-0 Yes 50 mg = 1 Vic josue hydrochlori 2-12 tab, PO, l de 50 MG 22:47: Q6H, PRN [place] nn Oral Tablet 00 Pain, X 10 day, # 40 tab, 0 Refill(s) Sodium 2016-0 No 1,000 mL, Memori a Chloride 2-12 1,000 l 0.154 19:42: ml/hr, [place] MEQ/ML 00 Infuse Injectable Over: 1 Solution hr, Route: IV, 1,000, Drug form: INJ, ONCE, Priority: STAT, Dosing Weight 78.182 kg, Start date: 06/21/15 13:42:00, Duration: 1 doses or times, Stop date: 06/21/15 13:42:00 Sodium 2016-0 No 1,000 mL, Memori a Chloride 2-12 1,000 l 0.154 19:42: ml/hr, Venkatesh MEQ/ML 00 Infuse Injectable Over: 1 Solution hr, Route: IV, 1,000, Drug form: INJ, ONCE, Priority: STAT, Dosing Weight 78.182 kg, Start date: 06/21/15 13:42:00, Duration: 1 doses or times, Stop date: 06/21/15 13:42:00 Sodium 2016-0 No 1,000 mL, Memori a Chloride 2-12 1,000 l 0.154 19:42: ml/hr, [place] MEQ/ML 00 Infuse Injectable Over: 1 Solution hr, Route: IV, 1,000, Drug form: INJ, ONCE, Priority: STAT, Dosing Weight 78.182 kg, Start date: 06/21/15 13:42:00, Duration: 1 doses or times, Stop date: 06/21/15 13:42:00 Sodium 2016-0 No 1,000 mL, Memori a Chloride 2-12 1,000 l 0.154 19:42: ml/hr, [place] MEQ/ML 00 Infuse Injectable Over: 1 Solution hr, Route: IV, 1,000, Drug form: INJ, ONCE, Priority: STAT, Dosing Weight 78.182 kg, Start date: 06/21/15 13:42:00, Duration: 1 doses or times, Stop date: 06/21/15 13:42:00 Sodium 2016-0 No 1,000 mL, Memori a Chloride 2-12 1,000 l 0.154 19:42: ml/hr, Venkatesh MEQ/ML 00 Infuse Injectable Over: 1 Solution hr, Route: IV, 1,000, Drug form: INJ, ONCE, Priority: STAT, Dosing Weight 78.182 kg, Start date: 06/21/15 13:42:00, Duration: 1 doses or times, Stop date: 06/21/15 13:42:00 Sodium 2016-0 No 1,000 mL, Memori a Chloride 2-12 1,000 l 0.154 19:42: ml/hr, Venkatesh MEQ/ML 00 Infuse Injectable Over: 1 Solution hr, Route: IV, 1,000, Drug form: INJ, ONCE, Priority: STAT, Dosing Weight 78.182 kg, Start date: 06/21/15 13:42:00, Duration: 1 doses or times, Stop date: 06/21/15 13:42:00 Sodium 2016-0 No 1,000 mL, Memori a Chloride 2-12 1,000 l 0.154 19:42: ml/hr, Venkatesh MEQ/ML 00 Infuse Injectable Over: 1 Solution hr, Route: IV, 1,000, Drug form: INJ, ONCE, Priority: STAT, Dosing Weight 78.182 kg, Start date: 06/21/15 13:42:00, Duration: 1 doses or times, Stop date: 06/21/15 13:42:00 Sodium 2016-0 No 1,000 mL, Memori a Chloride 2-12 1,000 l 0.154 19:42: ml/hr, Evnkatesh MEQ/ML 00 Infuse Injectable Over: 1 Solution hr, Route: IV, 1,000, Drug form: INJ, ONCE, Priority: STAT, Dosing Weight 78.182 kg, Start date: 06/21/15 13:42:00, Duration: 1 doses or times, Stop date: 06/21/15 13:42:00 Sodium 2016-0 No 1,000 mL, Memori a Chloride 2-12 1,000 l 0.154 19:42: ml/hr, Venkatesh MEQ/ML 00 Infuse Injectable Over: 1 Solution hr, Route: IV, 1,000, Drug form: INJ, ONCE, Priority: STAT, Dosing Weight 78.182 kg, Start date: 06/21/15 13:42:00, Duration: 1 doses or times, Stop date: 06/21/15 13:42:00 Amlodipine 2016-0 No Notes: Memor ia 2-12 (Same as: l 19:08: Norvasc) Venkatesh Amlodipine 2016-0 No Notes: Memor ia 2-12 (Same as: l 19:08: Norvasc) Venkatesh Amlodipine 2016-0 No Notes: Memor ia 2-12 (Same as: l 19:08: Norvasc) Venkatesh Amlodipine 2016-0 No Notes: Memor ia 2-12 (Same as: l 19:08: Norvasc) Venkatesh Amlodipine 2016-0 No Notes: Memor ia 2-12 (Same as: l 19:08: Norvasc) Venkatesh Amlodipine 2016-0 No Notes: Memor ia 2-12 (Same as: l 19:08: Norvasc) [place] 00 Amlodipine No Notes: Memor ia 2-12 (Same as: l 19:08: Norvasc) Venkatesh 00 Amlodipine No Notes: Memor ia 2-12 (Same as: l 19:08: Norvasc) [place] 00 Amlodipine No Notes: Memor ia 2-12 (Same as: l 19:08: Norvasc) [place] 00 Vital Signs Vital Name Observation Time Observation Value Comments Source Systolic blood 2022-12-18 20:51:00 130 mm[Hg] [facility] pressure [facility] Diastolic blood 2022-12-18 20:51:00 84 mm[Hg] [facility] Body height 2022-12-18 20:51:00 162.6 cm [facility] Body weight 2022-12-18 20:51:00 100.472 kg [facility] BMI 2022-12-18 20:51:00 38.02 kg/m2 [facility] Oxygen saturation in 2022-12-18 20:51:00 96 /min [facility] Arterial blood by [facility] Pulse oximetry Branch Systolic blood 2022-12-03 20:12:00 128 mm[Hg] [facility] Diastolic blood 2022-12-03 20:12:00 84 mm[Hg] [facility] [place] Heart rate 2022-12-03 20:12:00 93 /min Universi ty [facility] Oxygen saturation in 2022-12-03 20:12:00 72 /min [facility] Arterial blood by [facility] Pulse oximetry Branch Respiratory rate 2022-12-03 20:05:00 17 /min [facility] ers[facility] of [facility] Body height 2022-12-03 20:05:00 162.6 cm [facility] Body weight 2022-12-03 20:05:00 94.847 kg [facility] BMI 2022-12-03 20:05:00 35.89 kg/m2 [facility] HEIGHT 2022-11-03 12:25:00 162.6 cm HEIGHT 2022-11-03 12:25:00 162.6 cm WEIGHT 2022-10-29 04:29:00 128.2 kg WEIGHT 2022-10-28 04:26:00 120.5 kg WEIGHT 2022-10-27 06:00:00 130 kg WEIGHT 2022-10-24 04:37:00 132.8 kg WEIGHT 2022-10-23 05:00:00 133.4 kg WEIGHT 2022-10-22 06:00:00 133.3 kg WEIGHT 2022-10-21 06:00:00 137 kg HEIGHT 2022-10-20 04:00:00 162.6 cm WEIGHT 2022-10-20 04:00:00 137.7 kg WEIGHT 2022-10-29 04:29:00 128.2 kg WEIGHT 2022-10-28 04:26:00 120.5 kg WEIGHT 2022-10-27 06:00:00 130 kg WEIGHT 2022-10-24 04:37:00 132.8 kg WEIGHT 2022-10-23 05:00:00 133.4 kg WEIGHT 2022-10-22 06:00:00 133.3 kg WEIGHT 2022-10-21 06:00:00 137 kg HEIGHT 2022-10-20 04:00:00 162.6 cm WEIGHT 2022-10-20 04:00:00 137.7 kg WEIGHT 2022-10-29 04:29:00 128.2 kg WEIGHT 2022-10-28 04:26:00 120.5 kg WEIGHT 2022-10-27 06:00:00 130 kg WEIGHT 2022-10-24 04:37:00 132.8 kg WEIGHT 2022-10-23 05:00:00 133.4 kg WEIGHT 2022-10-22 06:00:00 133.3 kg WEIGHT 2022-10-21 06:00:00 137 kg HEIGHT 2022-10-20 04:00:00 162.6 cm WEIGHT 2022-10-20 04:00:00 137.7 kg Systolic blood 2022-11-03 12:25:00 156 mm[Hg] [facility] Diastolic blood 2022-11-03 12:25:00 76 mm[Hg] [facility] Heart rate 2022-11-03 12:25:00 67 /min [facility] Body temperature 2022-11-03 12:25:00 36.44 [facility] Respiratory rate 2022-11-03 12:25:00 17 /min [facility] Body height 2022-11-03 12:25:00 162.6 cm [facility] Oxygen saturation in 2022-11-03 12:25:00 97 /min [facility] Arterial blood by [facility] Pulse oximetry Body weight 2022-10-29 04:29:00 128.2 kg [facility] BMI 2022-10-29 04:29:00 48.51 kg/m2 [facility] Temperature Oral (F) 2015-09-27 00:26:00 97.5 F [facility] [place] Heart Rate 2015-09-27 00:26:00 [facility] [place] Respitory Rate 2015-09-27 00:26:00 [facility] [place] Systolic (mm Hg) 2015-09-27 00:26:00 Vic rial [place] Diastolic (mm Hg) 2015-09-27 00:26:00 Mem orial Venkatesh Systolic (mm Hg) 2015-09-26 20:22:00 Vic rial [place] Diastolic (mm Hg) 2015-09-26 20:22:00 Mem o[facility] [place] Respitory Rate 2015-09-26 20:22:00 [facility]ori al Venkatesh Heart Rate 2015-09-26 20:22:00 [facility] [place] Temperature Oral (F) 2015-09-26 20:22:00 98.0 F [facility] [place] Temperature Oral (F) 2015-09-26 16:25:00 98.6 F [facility] [place] Heart Rate 2015-09-26 16:25:00 [facility] Venkatesh Systolic (mm Hg) 2015-09-26 16:25:00 Vic rial [place] Diastolic (mm Hg) 2015-09-26 16:25:00 Mem orial Venkatesh Respitory Rate 2015-09-26 16:25:00 [facility] al Venkatesh Weight 2015-09-26 14:30:00 [facility] Venkatesh Height 2015-09-26 00:47:00 162.56 cm [facility] Ven[facility]h Weight 2015-09-26 00:47:00 [facility] [place] BMI Calculated 2015-09-26 00:47:00 Mem[facility] al Venkatesh Weight 2015-09-25 20:41:00 [facility] Ven[facility] Height 2015-09-12 17:23:00 167.64 cm [facility] [place] Weight 2015-09-12 17:23:00 [facility] Ven[facility] BMI Calculated 2015-09-12 17:23:00 [facility] al Venkatesh Respitory Rate 2015-08-09 03:00:00 [facility] [place] Systolic (mm Hg) 2015-08-09 03:00:00 Vic rial [place] Diastolic (mm Hg) 2015-08-09 03:00:00 Mem o[facility] [place] Respitory Rate 2015-08-09 02:00:00 [facility] [place] Systolic (mm Hg) 2015-08-09 02:00:00 [facility] Diastolic (mm Hg) 2015-08-09 02:00:00 [facility] Systolic (mm Hg) 2015-08-09 01:20:00 [facility] Diastolic (mm Hg) 2015-08-09 01:20:00 [facility] Respitory Rate 2015-08-09 01:20:00 [facility] Temperature Oral (F) 2015-08-08 09:00:00 97.7 F [facility] Temperature Oral (F) 2015-08-08 01:00:00 98.1 F [facility] Weight 2015-08-08 00:00:00 [facility] BMI Calculated 2015-08-08 00:00:00 [facility] Height 2015-08-08 00:00:00 162.56 cm [facility] Heart Rate 2015-08-07 20:08:00 [facility] Height 2015-08-07 20:08:00 162.56 cm [facility] BMI Calculated 2015-08-07 20:08:00 [facility] Temperature Oral (F) 2015-08-07 20:08:00 98.0 F [facility] Weight 2015-08-07 20:08:00 [facility] Temperature Oral (F) 2015-07-06 22:56:00 98.5 F [facility] Systolic (mm Hg) 2015-07-06 22:56:00 [facility] Diastolic (mm Hg) 2015-07-06 22:56:00 [facility] Respitory Rate 2015-07-06 22:56:00 [facility] Heart Rate 2015-07-06 22:56:00 [facility] BMI Calculated 2015-07-06 22:03:00 [facility] Weight 2015-07-06 22:03:00 [facility] Height 2015-07-06 22:03:00 162.56 cm [facility] Respitory Rate 2015-07-06 22:03:00 [facility] Temperature Oral (F) 2015-07-06 22:03:00 98.5 F [facility] Heart Rate 2015-07-06 22:03:00 [facility] Systolic (mm Hg) 2015-07-06 22:03:00 [facility] Diastolic (mm Hg) 2015-07-06 22:03:00 [facility] Respitory Rate 2015-06-22 00:17:00 [facility] Systolic (mm Hg) 2015-06-22 00:17:00 [facility] Diastolic (mm Hg) 2015-06-22 00:17:00 [facility] Systolic (mm Hg) 2015-06-21 21:17:00 [facility] Diastolic (mm Hg) 2015-06-21 21:17:00 [facility] Respitory Rate 2015-06-21 21:17:00 [facility] Systolic (mm Hg) 2015-06-21 19:37:00 [facility] Diastolic (mm Hg) 2015-06-21 19:37:00 [facility] Respitory Rate 2015-06-21 19:37:00 [facility] Height 2015-06-21 18:14:00 162.56 cm [facility] Weight 2015-06-21 18:14:00 [facility] BMI Calculated 2015-06-21 18:14:00 [facility] Heart Rate 2015-06-21 18:14:00 [facility] Temperature Oral (F) 2015-06-21 18:14:00 98.4 F [facility] Procedures Procedure Date / Time Performing Source Performed Clinician TRANSTHORACIC ECHO (TTE) 2022-12-16 21:45:35 [facility] COMPLETE W/ CONTRAST [facility] ASSIGNMENT OF BENEFITS 2022-12-03 19:38:55 [facility] POCT-GLUCOSE METER 2022-10-29 17:10:00 [facility] 2022-10-29 14:19:00 Julio [facility] POCT-GLUCOSE METER 2022-10-29 11:43:[address] [facility] POCT-GLUCOSE METER 2022-10-29 06:35:[address] [facility] BASIC METABOLIC PANEL 2022-10-29 04:01:00 [facility] T4, FREE 2022-10-29 04:01:00 [facility] POCT-GLUCOSE METER 2022-10-28 21:48:[address] [facility] POCT-GLUCOSE METER 2022-10-28 16:32:00 Julio, [facility] POCT-GLUCOSE METER 2022-10-28 12:14:[address] [facility] POCT-GLUCOSE METER 2022-10-28 06:47:00 Syd Jeanmarie [facility] CBC W/PLT COUNT & AUTO 2022-10-28 03:41:[address] [facility] BASIC METABOLIC PANEL 2022-10-28 03:41:00 Addis Pulliam [facility] T4, FREE 2022-10-28 03:41:[address] [facility] CBC W/PLT COUNT & AUTO 2022-10-28 03:41:[address] [facility] (CELLAVISION MANUAL DIFF) 2022-10-28 03:41:00 Addis Pulliam [facility] POCT-GLUCOSE METER 2022-10-27 21:09:[address] [facility] POCT-GLUCOSE METER 2022-10-27 16:38:[address] [facility] POCT-GLUCOSE METER 2022-10-27 11:59:[address] [facility] POCT-GLUCOSE METER 2022-10-27 06:24:[address] [facility] CBC W/PLT COUNT & AUTO 2022-10-27 04:42:[address] [facility] BASIC METABOLIC PANEL 2022-10-27 04:42:00 Addis Pulliam [facility] T4, FREE 2022-10-27 04:42:00 [facility] CBC W/PLT COUNT & AUTO 2022-10-27 04:42:[address] [facility] (CELLAVISION MANUAL DIFF) 2022-10-27 04:42:00 Addis Pulliam [facility] POCT-GLUCOSE METER 2022-10-26 22:28:[address] [facility] POCT-GLUCOSE METER 2022-10-26 15:27:[address] [facility] POCT-GLUCOSE METER 2022-10-26 06:08:00 Addis Pulliam [facility] CBC W/PLT COUNT & AUTO 2022-10-26 03:51:[address] [facility] BASIC METABOLIC PANEL 2022-10-26 03:51:00 Addis Pulliam [facility] T4, FREE 2022-10-26 03:51:00 [facility] CBC W/PLT COUNT & AUTO 2022-10-26 03:51:[address] [facility] (CELLAVISION MANUAL DIFF) 2022-10-26 03:51:00 Addis Pulliam [facility] POCT-GLUCOSE METER 2022-10-25 21:15:00 Shasha [facility] CBC W/PLT COUNT & AUTO 2022-10-25 04:31:[address] [facility] BASIC METABOLIC PANEL 2022-10-25 04:31:00 Addis Pulliam [facility] T4, FREE 2022-10-25 04:31:00 [facility] Staci [facility] CBC W/PLT COUNT & AUTO 2022-10-25 04:31:[address] [facility] (CELLAVISION MANUAL DIFF) 2022-10-25 04:31:00 Addis Pulliam [facility] POCT-GLUCOSE METER 2022-10-24 17:07:00 Addis Pulliam [facility] CBC W/PLT COUNT & AUTO 2022-10-24 04:37:[address] [facility] BASIC METABOLIC PANEL 2022-10-24 04:37:00 Addis Pulliam [facility] T4, FREE 2022-10-24 04:37:[address] [facility] THYROID PEROXIDASE (TPO) 2022-10-24 04:37:[address] [facility] CBC W/PLT COUNT & AUTO 2022-10-24 04:37:[address] [facility] (CELLAVISION MANUAL DIFF) 2022-10-24 04:37:00 Addis Pulliam [facility] POCT-GLUCOSE METER 2022-10-23 21:48:00 Addis Pulliam [facility] POCT-GLUCOSE METER 2022-10-23 11:52:00 Addis Pulliam [facility] POCT-GLUCOSE METER 2022-10-23 07:41:00 Addis Pulliam [facility] MAGNESIUM 2022-10-23 03:35:00 Nichelle Parra [facility] CBC W/PLT COUNT & AUTO 2022-10-23 03:35:[address] [facility] BASIC METABOLIC PANEL 2022-10-23 03:35:00 Addis Pulliam [facility] T4, FREE 2022-10-23 03:35:[address] [facility] CBC W/PLT COUNT & AUTO 2022-10-23 03:35:00 Shabnam De Paz HI [facility] POCT-GLUCOSE METER 2022-10-22 21:38:00 [facility] POCT-GLUCOSE METER 2022-10-22 16:03:00 Shasha [facility] LIMITED 2D ECHOCARDIOGRAM 2022-10-22 15:49:24 Shari Lutz HI [facility] POCT-GLUCOSE METER 2022-10-22 11:05:00 Shasha [facility] POCT-GLUCOSE METER 2022-10-22 07:51:00 Shasha [facility] MAGNESIUM 2022-10-22 03:09:00 Nichelle Parra [facility] CBC W/PLT COUNT & AUTO 2022-10-22 03:09:00 Shasha [facility] BASIC METABOLIC PANEL 2022-10-22 03:09:00 Shasha [facility] T4, FREE 2022-10-22 03:09:00 Jv [facility] CBC W/PLT COUNT & AUTO 2022-10-22 03:09:00 Shabnam De Paz HI [facility] POCT-GLUCOSE METER 2022-10-21 22:49:00 Huys [facility] POCT-GLUCOSE METER 2022-10-21 16:24:00 Huys [facility] POCT-GLUCOSE METER 2022-10-21 11:21:00 Shasha [facility] ABORH, MANUAL 2022-10-21 09:42:00 [facility] PROTEIN, RANDOM URINE 2022-10-21 09:29:00 Addis Pulliam [facility] CREATININE, RANDOM URINE 2022-10-21 09:29:00 Addis Pulliam [facility] GLUCOSE, PERICARDIAL FLUID 2022-10-21 09:29:00 Shabnam De Paz Sa [facility] CYTOLOGY 2022-10-21 08:51:00 Shabnam De Paz [facility] XR CHEST 1 VIEW PORTABLE / 2022-10-21 08:41:28 Shabnam De Paz Sa [facility] T SPOT TB 2022-10-21 03:16:00 Roman Holland [facility] CARDIOLIPIN ANTIBODIES, IGG 2022-10-21 03:16:00 Madonna Boland [facility] AND [facility] Medical Center MAGNESIUM 2022-10-21 03:16:00 Nichelle Parra [facility] CBC W/PLT COUNT & AUTO 2022-10-21 03:16:[address] [facility] BASIC METABOLIC PANEL 2022-10-21 03:16:00 Addis Pulliam [facility] ANTI-HERACLIO AB (OUTSOLE LEVELER, STANLEY) 2022-10-21 03:16:00 Addis Pulliam [facility] LUPUS ANTICOAGULANT SCREEN 2022-10-21 03:16:00 Addis Pulliam [facility] WITH REFLEX TO CONFIRMATORY [facility] BETA-2 GLYCOPROTEIN 2022-10-21 03:16:00 Addis Pulliam [facility] HEXAGONAL PHOSPHOLIPID 2022-10-21 03:16:00 Addis Pulliam [facility] TUMO-4-[id number] I IGG 2022-10-21 03:16:00 Addis Pulliam [facility] [id number] I IGM 2022-10-21 03:16:00 Addis Pulliam [facility] [id number] I IGA 2022-10-21 03:16:00 Addis Pulliam [facility] DIRECT AHG (PRATEEK)/DIRECT 2022-10-21 03:16:00 Jamin Pulliamshawneetownmike [facility] ABORH, MANUAL 2022-10-21 03:16:00 [facility] CBC W/PLT COUNT & AUTO 2022-10-21 03:16:00 Shabnam De Paz [facility] POCT-GLUCOSE METER 2022-10-20 21:28:00 Addis Pulliam [facility] POCT-GLUCOSE METER 2022-10-20 16:20:00 Shasha [facility] POCT-GLUCOSE METER 2022-10-20 13:24:00 Shasha [facility] CYCLIC CITRULLINATED PEPTIDE 2022-10-20 13:13:00 Staci Carias [facility], IGG [facility] ANTI-NEUTROPHIL CYTOPLASMIC 2022-10-20 13:13:00 Shabnam De Paz [facility] (ANCA) [facility] SJOGREN'S ANTIBODIES 2022-10-20 13:13:00 Zandra [facility] CRYOGLOBULIN 2022-10-20 13:13:[address] [facility] LIMITED 2D ECHOCARDIOGRAM 2022-10-20 12:03:41 Addis Pulliam [facility] LACTATE DEHYDROGENASE (LDH), 2022-10-20 11:43:00 Merline Pulliam [facility] BODY FLUID [facility] PROTEIN, BODY FLUID 2022-10-20 11:43:00 Jamin Pulliam[facility] BODY FLUID CELL COUNT WITH 2022-10-20 11:43:00 Jaimn Pulliamshawneetownmike [facility] DIFFERENTIAL [facility] BODY FLUID CULTURE + GRAM 2022-10-20 11:43:00 Addis Pulliam [facility] STAIN [facility] [employer] CULTURE + SMEAR 2022-10-20 11:43:00 [facility] PH, BODY FLUID 2022-10-20 11:43:00 Addis Pulliam [facility] PERICARDIOCENTESIS 2022-10-20 10:34:00 Huy [facility] URINALYSIS W/ REFLEX URINE 2022-10-20 10:06:[address] [facility] TSH/FREE T4 IF INDICATED 2022-10-20 10:03:00 Nichelle Parra [facility] LACTIC ACID, VENOUS 2022-10-20 10:03:00 Nichelle Parra [facility] ANTI-NUCLEAR ANTIBODY (TEDDY) 2022-10-20 10:03:00 Nichelle Parra [facility] C-REACTIVE PROTEIN 2022-10-20 10:03:00 Nichelle Parra [facility] HAPTOGLOBIN 2022-10-20 10:03:[address] [facility] IRON, TIBC, % SAT. (WITHOUT 2022-10-20 10:03:00 Nichelle Parra [facility] FERRITIN) Medical Center FERRITIN 2022-10-20 10:03:[address] [facility] VITAMIN B12 2022-10-20 10:03:[address] [facility] RHEUMATOID FACTOR AB, REFLEX 2022-10-20 10:03:00 Nichelle Parra [facility] TO [facility] T4, FREE 2022-10-20 10:03:[address] [facility] DOUBLE-STRANDED DNA (DSDNA) 2022-10-20 10:03:00 Segundo [facility] COMPLEMENT COMPONENT C3 2022-10-20 10:03:00 Segundo [facility] HEPATITIS B PANEL 2022-10-20 10:03:00 Segundo [facility] HEPATITIS C ANTIBODY 2022-10-20 10:03:00 Zandra [facility] XR CHEST 1 VIEW PORTABLE / 2022-10-20 09:15:00 KahlilShabnam culver Sa manning [facility] RESPIRATORY PANEL 2022-10-20 06:40:00 [facility]IPID [facility]EL 2022-10-20 06:33:00 [facility] 2022-10-20 06:33:00 [facility] 2D ECHO W/ DOPPLER 2022-10-20 05:02:23 [facility] ECG 12-LEAD 2022-10-20 04:35:07 [facility] 12-LEAD 2022-10-20 04:35:07 Unknown, Hl7 Doctor [facility] BASIC METABOLIC PANEL 2022-10-20 04:18:00 Nichelle Parra CH I [facility] HEPATIC FUNCTION PANEL 2022-10-20 04:18:00 Nichelle Parra C HI [facility] MAGNESIUM 2022-10-20 04:18:00 [facility] BLOOD GAS, VENOUS 2022-10-20 04:18:00 [facility] B-TYPE NATRIURETIC FACTOR 2022-10-20 04:18:00 Nichelle Parra [facility] (BNP) [facility] HIGH SENSITIVITY TROPONIN I 2022-10-20 04:18:00 Nichelle Parra [facility] CBC (HEMOGRAM ONLY) 2022-10-20 04:18:00 [facility] LACTATE DEHYDROGENASE (LDH) 2022-10-20 04:18:00 Nichelle Parra [facility] RETICULOCYTE COUNT 2022-10-20 04:18:00 [facility] - SCAN 2022-10-20 00:00:00 Provider, Default [facility] Scanning [facility] EKG-SCANNED 2022-10-20 00:00:00 Provider, Default [facility] Scanning [facility] Cardiac catheterization of Jonathon Riddle right and left heart for ventriculography Plan of Care Planned Activity Planned Date Details Comments Source Future Scheduled 2025-10-20 Lipid panel (procedure) [facility] Test 00:00:00 [code = 78995732] Medical Ce nter Future Scheduled 2023-11-[address] [facility] Test 00:00:00 Counseling and Screening [facility] (12+) [code = Tobacco Cessation Counseling and Screening (12+)] Future Scheduled 2023-01-09 Screening for malignant [facility] 15:09:52 neoplasm of cervix Hospital (procedure) [code = 737648260] Future Scheduled 2023-01-09 BREAST CANCER SCREENING [facility] 15:09:52 [code = BREAST CANCER Hospit al SCREENING] Future Scheduled 2023-01-09 Screening for malignant [facility] 15:09:52 neoplasm of colon Hospital (procedure) [code = 227184412] Future Scheduled 2023-01-09 Screening for malignant [facility] 15:09:52 neoplasm of colon Hospital (procedure) [code = 034312346] Future Scheduled 2023-01-09 SHINGLES VACCINES (1 of [facility] Test 15:09:52 2) [code = SHINGLES Hospital VACCINES (1 of 2)] Future Scheduled 2023-01-09 INFLUENZA VACCINE (#1) M [facility]ist Test 15:09:52 [code = INFLUENZA VACCINE Ho spital (#1)] Future Scheduled 2023-01-09 Screening for malignant [facility] 15:09:52 neoplasm of colon Hospital (procedure) [code = 741390751] Future Scheduled 2023-01-09 Screening for malignant [facility] 15:09:52 neoplasm of colon Hospital (procedure) [code = 529591155] Future Scheduled 2023-01-09 Screening for malignant [facility] 15:09:52 neoplasm of colon Hospital (procedure) [code = 653652101] Future Scheduled 2023-01-09 COVID-19 VACCINE (#1) [facility] Test 15:09:52 [code = COVID-19 VACCINE Hos pital (#1)] Future Scheduled 2023-01-08 Influenza Vaccine (#1[facility]00 [code = Influenza Vaccine Me dical Center (#1)] Future Scheduled 2022-10-14 Screening for malignant [facility] 11:55:12 neoplasm of colon Hospital (procedure) [code = 508025055] Future Scheduled 2022-10-14 Screening for malignant [facility] 11:55:12 neoplasm of colon Hospital (procedure) [code = 580315459] Future Scheduled 2022-10-14 Screening for malignant [facility] 11:55:12 neoplasm of colon Hospital (procedure) [code = 192834922] Future Scheduled 2022-10-14 COVID-19 VACCINE (#1) [facility] Test 11:55:12 [code = COVID-19 VACCINE Hos pital (#1)] Future Scheduled 2022-10-14 Screening for malignant [facility] 11:55:12 neoplasm of cervix Hospital (procedure) [code = 819419652] Future Scheduled 2022-10-14 BREAST CANCER SCREENING [facility] 11:55:12 [code = BREAST CANCER Hospit al SCREENING] Future Scheduled 2022-10-14 Screening for malignant [facility] 11:55:12 neoplasm of colon Hospital (procedure) [code = 592102118] Future Scheduled 2022-10-14 Screening for malignant [facility] 11:55:12 neoplasm of colon Hospital (procedure) [code = 565790035] Future Scheduled 2022-10-14 SHINGLES VACCINES (1 of [facility] Test 11:55:12 2) [code = SHINGLES Hospital VACCINES (1 of 2)] Future Scheduled 2022-10-14 INFLUENZA VACCINE [code = [facility] Test 11:55:12 INFLUENZA VACCINE] Hospital Future Scheduled 2021-03-19 COVID-19 VACCINE (1) Met [facility] Test 05:51:38 [code = COVID-19 VACCINE Hos pital (1)] Future Scheduled 2021-03-19 Screening for malignant [facility] 05:51:38 neoplasm of cervix Hospital (procedure) [code = 568406858] Future Scheduled 2021-03-19 BREAST CANCER SCREENING [facility] 05:51:38 [code = BREAST CANCER Hospit al SCREENING] Future Scheduled 2021-03-19 COLONOSCOPY SCREENING Me [facility]ist Test 05:51:38 [code = COLONOSCOPY Hospital SCREENING] Future Scheduled 2021-03-19 SHINGLES VACCINES (#1) M ethodist Test 05:51:38 [code = SHINGLES VACCINES Ho spital (#1)] Future Scheduled 2021-03-19 INFLUENZA VACCINE [code = [facility] Test 05:51:38 INFLUENZA VACCINE] Hospital Future Scheduled 2011-09-01 SHINGLES VACCINES ([address] [facility] Test 00:00:00 2) [code = SHINGLES Medical Center VACCINES (1 of 2)] Future Scheduled 1982 Screening for malignant [facility] Test 00:00:00 neoplasm of cervix Medical C enter (procedure) [code = 544149586] Future Scheduled 1980 DTAP/TDAP/TD VACCINES ([address] [facility] Test 00:00:00 - Tdap) [code = Medical Cent er DTAP/TDAP/TD VACCINES (1 - Tdap)] Future Scheduled [address] [facility] 00:00:00 virus screening Medical Cent er (procedure) [code = 280394350] Future Scheduled 1962-03-02 COVID-19 VACCINE (#1) [facility]00 [code = COVID-19 VACCINE [facility] (#1)] Future Scheduled 1961 Screening for malignant [facility] Test 00:00:00 neoplasm of breast Medical C enter (procedure) [code = 881316268] Future Scheduled 1961 CT Colonography (combo) [facility] Test 00:00:00 [code = CT Colonography [facility] (combo)] Future Scheduled 1961 Screening for malignant [facility] Test 00:00:00 neoplasm of colon Medical Ce nter (procedure) [code = 680222999] Future Scheduled 1961 Screening for malignant [facility] Test 00:00:00 neoplasm of colon Medical Ce nter (procedure) [code = 168810206] Future Scheduled 1961 Screening for malignant [facility] Test 00:00:00 neoplasm of colon Medical Ce nter (procedure) [code = 489008870] Future Scheduled 1961 Screening for malignant [facility] Test 00:00:00 neoplasm of colon Medical Ce nter (procedure) [code = 983667676] Future Scheduled 1961 Sigmoidoscopy [code = [facility] Sigmoidoscopy] Medical Cente r Encounters Start End Encounter Admission Attending Care Care Encounter Source Date/Time Date/Time Type Type Clinicians Facility Department ID 2022-10-22 Inpatient ER HUYS, [facility] [id number] [facility] 13:29:12 NIKOLAOS 2022-10-21 Inpatient ER DIAKOS, [facility] [id number] SLE 07:50:18 NIKOLAOS 2022-10-20 Inpatient ER DIAKOS, [facility] [id number] [facility] 08:34:09 NIKOLA 2022-10-20 Inpatient ER DIAKOS, [facility] [id number] [facility] 04[facility]17[facility] Outpatient STLMLC STLMLC [id number] Common 08:03:00 [id number] [facility] 2022-09-09 Outpatient STLMLC STLMLC [id number] Common 13:07:00 [id number] [facility] 2022-08-18 Outpatient STLMLC STLMLC [id number] Common 11:00:00 [id number] [facility] 2022-04-22 Outpatient STLMLC STLMLC [id number] Common 08:36:01 [facility] 2022-04-06 Outpatient STLMLC STLMLC [id number] Common 13:38:01 [facility] 2022-04-01 Outpatient CHAVARRIA, STLMLC STLMLC [id number] Common 10:56:02 [facility] 2022-01-22 Outpatient STLMLC STLMLC [id number] Common 08:36:01 [facility] 2021-10-28 Outpatient STLMLC STLMLC [id number] Common 09:43:04 [facility] 2021-10-09 Outpatient STLMLC STLMLC [id number] Common 13:39:02 [facility] 2022-12-21 2022-12-21 [facility] [id number] Univers 00:00:00 00:00:00 Timothy Patel Incujector 350.1.13.10 it y of [place] 4.2.7.2.686 Semaj as MICHAELLE?BLEA [phone] [facility] 2022-12-18 2022-12-18 [facility], Ang - Db [facility] [id number] Univers 16:45:00 17:00:00 Visit Timothy Mckoy [facility] 350.1.13.10 ity of [place] 4.2.7.2.686 Semaj as MICHAELLE?BLEA [phone] [facility] CHENG 353 [facility] 2022-12-18 2022-12-18 [facility] [id number] Univers 16:00:00 16:39:[address] [facility] 2022-12-18 2022-12-18 Office [facility] [id number] Univers 16:00:00 16:39:49 Visit Timothy Incujector 350.1.13.10 it y of [place] 4.2.7.2.686 Semaj as MICHAELLE?BLEA [id number] [address] [facility] 2022-12-16 2022-12-16 Outpatient R [facility] [id number] Univers 15:32:00 23:59:00 JULIO botelloy o f [facility] 2022-12-16 2022-12-16 [facility] 1.2.840.114 [id number] Univers 15:32:00 23:59:00 Encounter Julio ROBERTSON 350.1.13.10 it[place] of [place] [phone] Vt farshad BAKER [address] [facility] 2022-12-11 2022-12-11 Telephone [facility] [id number] Univers 00:00:00 00:00:00 Julio QUINONEZTON 350.1.13.10 it[place] of [place] [id number] Vt dical NAL [address] [facility] 2022-12-03 2022-12-03 [facility], Adc Lab [facility] [id number] Univers 15:45:00 15:56:11 Visit Rodney Julio ROBERTSON 350.1.13.10 ity of [place] [phone] Vt dical NAL [address] [facility] 2022-12-03 2022-12-03 Outpatient R RODNEY, [facility] [id number] Univers 15:00:00 15:39:27 JULIO garcias o f [facility] 2022-12-03 2022-12-03 [facility] 1.2.840.114 [id number] Univers 15:00:00 15:39:27 Visit Julio ROBERTSON 350.1.13.10 ity of [place] [id number] Vt dicin NAL 9 [facility] 2022-12-03 2022-12-03 Orders Doctor ANNALEE 1.2.840.114 [id number] Univers 00:00:00 00:00:00 Only Unassigned, OFELIA 350.1.13.10 ity of [place] [facility] 4.2.7.2.686 Semaj as [id number] [address] 2022-12-03 2022-12-03 Patient [facility] 1.2.840.114 [id number] Univers 00:00:00 00:00:00 Secure Msg Julio ROBERTSON 350.1.13.10 ity [facility] 4.2.7.2.[place] [id number] Vt dical NAL [address] [facility] 2022-11-09 2022-11-09 Outpatient BASIILO HAN [facility] [id number] SLE 00:00:00 00:00:00 [facility] 2022-11-03 2022-11-[address] [facility] [id number] [facility] 12:30:00 13:00:00 Visit [facility] 2022-11-03 2022-11-03 Outpatient JEANINE DILL [facility] [id number] SLE 12:18:01 12:18:01 [facility] 2022-10-30 2022-10-30 Outpatient JEANINE DILL [facility] [id number] SLE 00:00:00 00:00:00 [facility] 2022-10-20 2022-10-29 Inpatient ER JEANINE ISBELL Cardiac ICU [id number] SLE 02:48:00 19:24:00 [facility] 2022-10-20 2022-10-29 [facility] [id number] 02:48:00 19:24:[address] [facility] Julio [facility] 2022-10-24 2022-10-24 Travel [facility] [id number] [facility] 00:[facility] 00:00:00 [facility] 2022-10-20 2022-10-20 Inpatient ER JEANINE PULLIAM [facility] [id number] [facility] 10:46:37 23:59:00 [facility] 2022-10-20 2022-10-20 Hospital [facility] [id number] 10:45:00 23:59:00 Encounter [facility] 2022-10-20 2022-10-20 Surgery [facility], [facility] [id number] 10:15:00 12:34:00 [facility] 2022-10-20 2022-10-20 Orders [facility] [id number] 00:00:00 00:00:00 Only [facility] 2021-10-15 2021-10-15 Outpatient BASILIO Barlow [facility] LUCIA [id number] [facility] 12:00:00 12:00:00 Meryl 97 [facility] 2020-10-23 2020-10-23 Outpatient BASILIO Barlow [facility] LUCIA [id number] [facility] 12:00:00 12:00:00 Meryl 91 [facility] 2020-10-09 2020-10-09 [facility] [id number] [facility] 12:00:00 12:00:00 Meryl Serna [facility] 2015-09-25 2015-09-27 [facility] [id number] Memoria 20:31:00 01:10:00 Observatio r [place] 04 l n Patient Adair Her briggs 2015-09-25 2015-09-27 [facility] [id number] Memoria 20:31:00 01:10:00 Observatio r Venkatesh 04 l n Patient Adair Her briggs 2015-09-25 2015-09-26 Outpatient Prisca [facility] S [id number] 15:31:00 20:10:00 Yohanneschandrika Wallace 2015-09-12 2015-09-13 [facility] [id number] Memoria 13:21:00 04:59:00 r [place] 03 [facility] 2015-09-12 2015-09-13 [facility] [id number] Memoria 13:21:00 04:59:00 r [place] 03 [facility] 2015-09-12 2015-09-12 [facility] [id number] 08:21:00 23:59:00 Jose Steele 2015-09-11 2015-09-12 Outpt Diag nullFlavo [facility] [id number] Memoria 20:28:00 04:59:00 Services r Outpatient 00 l Imaging [facility] 2015-09-11 2015-09-12 Outpt Diag nullFlavo [facility] [id number] Memoria 20:28:00 04:59:00 Services r Outpatient 00 l Imaging [facility] 2015-09-11 2015-09-11 Outpatient Jung, [facility] [id number] 15:28:00 23:59:00 Jose Steele 2015-08-07 2015-08-09 OBS [facility] [id number] Memoria 19:57:00 02:58:00 Observatio r Venkatesh 02 l n Patient [facility] 2015-08-07 2015-08-09 OBS [facility] [id number] Memoria 19:57:00 02:58:00 Observatio r Venkatesh 02 l n Patient [facility] 2015-08-07 2015-08-08 Outpatient Cathie [facility] [id number] 14:57:00 21:58:00 Nimisha parkinson 2015-07-06 2015-07-06 EC [facility] [id number] Memoria 22:01:00 23:08:00 Emergency r [place] 01 l Center [facility] 2015-07-06 2015-07-06 EC [facility] [id number] Memoria 22:01:00 23:08:00 Emergency r Venkatesh 01 l Center [facility] 2015-07-06 2015-07-06 Outpatient KILEY Gunderson [facility] [id number] 16:01:00 17:08:00 2015-06-21 2015-06-22 EC [facility] [id number] Memoria 18:13:00 00:46:00 Emergency r [place] 00 l [facility] 2015-06-21 2015-06-22 EC [facility] [id number] Memoria 18:13:00 00:46:00 Emergency r [place] 00 l [facility] 2015-06-21 2015-06-21 Outpatient Reece Remy [facility] [id number] 12:13:00 18:46:00 Dinesh 00 Results Test Description Test Time Test Comments Results Result Comments Source Transthoracic echo (TTE) 2022-12-16 23:06:45 Test Item Value Reference Range Interpretation Comme nts Height (test code = 9388821451) 64 in Weight (test code = 0984747963) 209 lbs Systolic BP (test code = 2824569741) 133 mmHg Diastolic BP (test code = 1538048790) 74 mmHg Heart Rate (test code = 4302488951) 73 bpm Ao root diam (test code = 9375601389) 3.20 cm Aortic root (test code = 0704084086) 3.2 cm Ao root annulus (test code = 3.2 cm 6829506372) BSA (test code = 4338312592) 1.99 m2 LVOT diameter (test code = 1.71 cm 3729688186) LVOT area (test code = 5707365758) 2.31 cm2 LA size (test code = 5932836592) 4.3 cm ACS (test code = 7574455615) 2.33 cm PV PEAK VELOCITY (test code = 113.7 cm/s 0945027738) PV peak gradient (test code = 5.2 mmHg 1939699962) LAV(MOD-sp4) (test code = 2102553880) 46.30 mL MV E-F slope (test code = 4624038309) 56.10 cm/s MV Peak E Caprice (test code = 89.1 cm/s 9858787619) MV Peak A Caprice (test code = 106.9 cm/s 1490377825) E/A ratio (test code = 9456319671) 0.83 ratio MV valve area p 1/2 method (test code 2.90 cm2 = 4047968283) MV dec slope (test code = 4542092258) 345.10 cm/s2 MV P1/2t max caprice (test code = 89.10 cm/s 6384569808) LVOT stroke volume (test code = 62.20 cm3 3263246073) LVOT peak caprice (test code = 134.2 cm/s 1055218388) LVOT mn grad (test code = 9477874346) 3.0 mmHg AV LVOT peak gradient (test code = 7.2 mmHg 2434050841) LVOT peak VTI (test code = 27.0 cm 9049020493) LV V1 mean (test code = 8481334571) 79.10 cm/s Aortic valve mean velocity (test code 111.9 cm/s = 1900140374) Ao peak caprice (test code = 0323472769) 198.9 cm/s Ao VTI (test code = 6645163791) 39.9 cm AV area by cont VTI (test code = 1.6 cm2 7875393625) AV area peak caprice (test code = 1.6 cm2 0824600902) Ao max PG (test code = 9613628527) 15.80 mm[Hg] AV peak gradient (test code = 15.8 mmHg 2717152505) AV valve area (test code = 1.56 cm2 8397219280) AV mean gradient (test code = 6.3 mmHg 8228123467) LA Volume Index (BP) (test code = 19.3 mL/m2 8933299583) LA volume (BP) (test code = 38.5 mL 7675377953) LAV(MOD-sp2) (test code = 6232671131) 28.80 mL LVIDD (test code = 6798566096) 4.40 cm Left Ventricular End Diastolic Volume 87.6 mL by Teichholz Method (test code = 4946181) IVS (test code = 1049505148) 1.08 cm Interventricular Septum Diastolic 1.08 cm Thickness by 2D (test code = 2011226) LVPWD (test code = 5335305578) 1.00 cm PW (test code = 8253930204) 1.00 cm 0.6-1.1 EF(Teich) (test code = 0435618411) 64.90 % LVIDS (test code = 9939221926) 2.80 cm Left Ventricular End Systolic Volume 30.7 mL by Teichholz Method (test code = 0252991) FS (test code = 8081170062) 35 % EF - 2D (test code = 88168582) 64.90 % TR Peak Caprice (test code = 3678534941) 197.3 cm/s Triscuspid Valve Regurgitation Peak 15.6 mmHg Gradient (test code = 5310325025) Radiology Study observation (narrative) (test code = 99454-7) THEO (test code = THEO) ?Left?Ventricle: Left ventricle size is normal. Normal wall thickness. Normal wall motion. Normal systolic function with a visually estimated EF of 60 - 65%. There is impaired relaxation . ?Tricuspid?Valve: Trace transvalvular regurgitation. Insufficient tricuspid regurgitation jet to estimate RVSP . ?RA pressure is 0-5 mmHg. ?Pericardium: Trivial pericardial effusion present. ?Aorta: Normal sized aortic root. Borderline ascending aorta dilatation 3.0cm. Left VentricleLeft ventricle size is normal. Normal wall thickness. Normal wall motion. Normal systolic function with a visually estimated EF of 60 - 65%. There is impaired relaxation.Right VentricleRight ventricle size is normal. Normal systolic function.Left AtriumLeft atrium size is normal.Right AtriumRight atrium size is normal.IVC/SVCRA pressure is 0-5 mmHgMitral ValveMitral valve structure is grossly normal. Trace transvalvular regurgitation.Tricuspid ValveTricuspid valve structure is grossly normal. Trace transvalvular regurgitation. Insufficient tricuspid regurgitation jet to estimate RVSP . RA pressure is 0-5 mmHg.Aortic ValveTricuspid. Mildly calcified cusps. No hemodynamically significant . AV mean gradient is 6.3 mmHg.Pulmonic ValveNot well visualized. Trace transvalvular regurgitation.Ascending AortaNormal sized aortic root. Borderline ascending aorta dilatation 3.0cm.PericardiumTrivial pericardial effusion present.Study DetailsStudy quality experienced technical difficulty. A complete echocardiogram was performed using 2D, color flow Doppler and spectral Doppler. 5 mL of Lumason ultrasound enhancing agent used. [facility]2022-12-09 11:17:03 Test Item Value Reference Range Interpretation Comments Result (test code = No acid-fast bacilli 6463-4) isolated in 42 days AFB Smear (test code = No acid fast bacilli 29320-3) seen [facility]-SPUTUM)2022-12-09 11:17:03 Test Item Value Reference Range Interpretation Comments CULTURE (BEAKER) (test No acid-fast bacilli code = 1095) isolated in 42 days AFB SMEAR (BEAKER) No acid fast bacilli (test code = 994) seen POC-Glucose [id number] 17:22:11 Test Item Value Reference Range Interpretation Comments POC-Glucose Meter (test 95 mg/dL 70-110 : TE STED AT [facility] code = 1538) [address] [facility], 770 30: Terrazzo Journeyman/Techni catarino ID = [id number] for Veena Brown Lab Interpretation (test Normal code = 84876-7) [facility] [id number] 17:22:11 Test Item Value Reference Range Interpretation Comments POC-GLUCOSE METER 95 mg/dL 70-110 : TESTED A T [facility] 6720 (BEAKER) (test code = [facility], 1538) 61941: Terrazzo Journeyman/Techni catarino ID = [id number] for Sejal melvin Veena BASIC METABOLIC [id number] 14:48:27 Test Item Value Reference Range Interpretation Comments SODIUM (BEAKER) 136 meq/L 136-145 (test code = 381) POTASSIUM 3.5 meq/L 3.5-5.1 (BEAKER) (test code = 379) CHLORIDE (BEAKER) 97 meq/L 98-107 L (test code = 382) CO2 (BEAKER) 28 meq/L 22-29 (test code = 355) BLOOD UREA 16 mg/dL 7-21 NITROGEN (BEAKER) (test code = 354) CREATININE 1.40 mg/dL 0.57-1.25 H (BEAKER) (test code = 358) GLUCOSE RANDOM 108 mg/dL 70-105 H (BEAKER) (test code = 652) CALCIUM (BEAKER) 9.1 mg/dL 8.4-10.2 (test code = 697) EGFR (BEAKER) 43 Interpretatio n of eGFR (test code = mL/min/1.73 values Stage De scription 1092) sq m Result G1 Sera l or high >=90 G2 Mildly decreased 60-89 G3a Mildl y to moderately 45-5 9 G3b Moderately to s everely 30-44 G4 Severl y decreased 15-29 G5 Kidney failure <15Reported eGF R is based on the CKD-EPI 2020 equation that d oes not use a race coefficientEsti mated GFR is not as accur ate as Creatinine Brenda corinne in predicting glom erular filtration rate . Estimated GFR is not appl icable for dialysis patien ts Terrazzo Journeyman ID - BVPOCT-GLUCOSE [id number] 11:54:49 Test Item Value Reference Range Interpretation Comments POC-GLUCOSE METER 236 mg/dL 70-110 H : TESTED A T [facility] 6720 ([employer]) (test code = [facility] [employer] [facility], 153) [address]: Terrazzo Journeyman/Techni catarino ID = [id number] for Veena Nieves POCT-GLUCOSE [id number] 07:05:52 Test Item Value Reference Range Interpretation Comments POC-GLUCOSE METER 95 mg/dL 70-110 : TESTED A T [facility] 6720 ([employer]) (test code = [facility] [employer] [facility], 153) 25[address]: Terrazzo Journeyman/Techni catarino ID = [id number] for SRI EDGE T4, [id number] 05:35:33 Test Item Value Reference Range Interpretation Comments FREE T4 (BEAKER) (test code = 655) 0.90 ng/dL 0.70-1.48 Terrazzo Journeyman ID - MMBASIC METABOLIC [id number] 05:13:52 Test Item Value Reference Range Interpretation Comments SODIUM (BEAKER) 139 meq/L 136-145 (test code = 381) POTASSIUM 3.5 meq/L 3.5-5.1 (BEAKER) (test code = 379) CHLORIDE (BEAKER) 97 meq/L 98-107 L (test code = 382) CO2 (BEAKER) 28 meq/L 22-29 (test code = 355) BLOOD UREA 14 mg/dL 7-21 NITROGEN (BEAKER) (test code = 354) CREATININE 1.38 mg/dL 0.57-1.25 H (BEAKER) (test code = 358) GLUCOSE RANDOM 90 mg/dL 70-105 (BEAKER) (test code = 652) CALCIUM (BEAKER) 9.0 mg/dL 8.4-10.2 (test code = 697) EGFR (BEAKER) 44 Interpretatio n of eGFR (test code = mL/min/1.73 values Stage De scription 1092) sq m Result G1 Sera l or high >=90 G2 Mildly decreased 60-89 G3a Mildl y to moderately 45-5 9 G3b Moderately to s everely 30-44 G4 Severl y decreased 15-29 G5 Kidney failure <15Reported eGF R is based on the CKD-EPI 2020 equation that d oes not use a race coefficientEsti mated GFR is not as accur ate as Creatinine Brenda sun in predicting glom erular filtration rate . Estimated GFR is not appl icable for dialysis patien ts Terrazzo Journeyman ID - MMPOCT-GLUCOSE [id number] 22:01:57 Test Item Value Reference Range Interpretation Comments POC-GLUCOSE METER 119 mg/dL 70-110 H : TESTED A T [facility] 6720 (BEAKER) (test code = [facility] [place], 1538) 472[address]: Terrazzo Journeyman/Techni catarino ID = [id number] for SRI ALVAREZ POCT-GLUCOSE [id number] 16:43:22 Test Item Value Reference Range Interpretation Comments POC-GLUCOSE METER 100 mg/dL 70-110 : TESTED A T [facility] 6720 (BEAKER) (test code = [facility] [place], 1538) 18180: Terrazzo Journeyman/Techni catarino ID = [id number] for Veena Nieves POCT-GLUCOSE [id number] 12:26:01 Test Item Value Reference Range Interpretation Comments POC-GLUCOSE METER 107 mg/dL 70-110 : TESTED A T [facility] 6720 (BEAKER) ([facility], = 1538) 35[address]: Terrazzo Journeyman/Techni catarino ID = [id number] for JONY Moon JOSUE (CELLAVISION MANUAL DIFF)2022-10-28 09:04:10 Test Item Value Reference Range Interpretation Comments NEUTROPHILS - REL 46 % (CELLAVISION)(BEAKER) (test code = 2816) LYMPHOCYTES - REL 31 % (CELLAVISION)(BEAKER) (test code = 2817) MONOCYTES - REL 7 % (CELLAVISION)(BEAKER) (test code = 2818) BASOPHILS - REL 4 % (CELLAVISION)(BEAKER) (test code = 2820) METAMYELOCYTES - REL 4 % 0-0 H (CELLAVISION)(BEAKER) (test code = 2821) MYELOCYTES - REL 3 % 0-0 H (CELLAVISION)(BEAKER) (test code = 2822) BANDS - REL (CELLAVISION)(BEAKER) 4 % 0-10 (test code = 2826) NEUTROPHILS - ABS 3.63 K/ul 1.56-6.13 (CELLAVISION)(BEAKER) (test code = 2830) LYMPHOCYTES - ABS 2.45 K/ul 1.18-3.74 (CELLAVISION)(BEAKER) (test code = 2831) MONOCYTES - ABS 0.55 K/uL 0.24-0.36 H (CELLAVISION)(BEAKER) (test code = 2832) BASOPHILS - ABS 0.32 K/uL 0.01-0.08 H (CELLAVISION)(BEAKER) (test code = 2835) METAMYELOCYTES - ABS 0.32 K/uL 0.00-0.00 H (CELLAVISION)(BEAKER) (test code = 2836) MYELOCYTES-ABS 0.24 K/uL 0.00-0.00 H (CELLAVISION)(BEAKER) (test code = 2837) BANDS - ABS (CELLAVISION)(BEAKER) 0.32 K/uL 0.00-0.80 (test code = 2840) TOTAL COUNTED (BEAKER) (test code 100 = 1351) MANUAL NRBC PER 100 CELLS 1 /100 WBC 0-0 H (BEAKER) (test code = 1353) PLT MORPHOLOGY (BEAKER) (test Normal code = 486) HYPERSEGMENTATION Present (CELLAVISION)(BEAKER) (test code = 3445) POLYCHROMATOPHILLIC RBCS(BEAKER) 1+ few (test code = 478) ANISOCYTOSIS (BEAKER) (test code 2+ moderate = 961) MACROCYTES (BEAKER) (test code = 2+ moderate 964) ARTIFACT (CELLAVISION)(BEAKER) Present (test code = 3432) PLATELET CONCENTRATION Adequate (CELLAVISION)(BEAKER) (test code = 3438) Terrazzo Journeyman ID - Lynn OverholtUser comments: Slide comments:CBC W/PLT COUNT & AUTO [id number] 09:04:09 Test Item Value Reference Range Interpretation Comments WHITE BLOOD CELL COUNT (BEAKER) 7.9 K/ L 3.5-10.5 (test code = 775) RED BLOOD CELL COUNT (BEAKER) 3.13 M/ L 3.93-5.22 L (test code = 761) HEMOGLOBIN (BEAKER) (test code = 9.6 GM/DL 11.2-15.7 L 410) HEMATOCRIT (BEAKER) (test code = 30.1 % 34.1-44.9 L 411) MEAN CORPUSCULAR VOLUME (BEAKER) 96 fL 79-95 H (test code = 753) MEAN CORPUSCULAR HEMOGLOBIN 30.7 pg 25.6-32.2 (BEAKER) (test code = 751) MEAN CORPUSCULAR HEMOGLOBIN CONC 31.9 GM/DL 32.2-35.5 L (BEAKER) (test code = 752) RED CELL DISTRIBUTION WIDTH 14.7 % 11.7-14.4 H (BEAKER) (test code = 412) PLATELET COUNT (BEAKER) (test 285 K/CU MM 150-450 code = 756) MEAN PLATELET VOLUME (BEAKER) 8.7 fL 9.4-12.3 L (test code = 754) NUCLEATED RED BLOOD CELLS 1 /100 WBC 0-0 H (BEAKER) (test code = 413) POCT-GLUCOSE [id number] 06:59:56 Test Item Value Reference Range Interpretation Comments POC-GLUCOSE METER 93 mg/dL 70-110 : TESTED A T [facility] 6720 (BEAKER) (test code = DAV[facility], 1538) [address]: Terrazzo Journeyman/Techni catarino ID = [id number] for SRI EDGE T4, [id number] 06:05:20 Test Item Value Reference Range Interpretation Comments FREE T4 (BEAKER) (test code = 655) 0.82 ng/dL 0.70-1.48 Terrazzo Journeyman ID - ELISABET WBASIC METABOLIC [id number] 05:09:04 Test Item Value Reference Range Interpretation Comments SODIUM (BEAKER) 137 meq/L 136-145 (test code = 381) POTASSIUM 3.3 meq/L 3.5-5.1 L (BEAKER) (test code = 379) CHLORIDE (BEAKER) 96 meq/L 98-107 L (test code = 382) CO2 (BEAKER) 29 meq/L 22-29 (test code = 355) BLOOD UREA 13 mg/dL 7-21 NITROGEN (BEAKER) (test code = 354) CREATININE 1.30 mg/dL 0.57-1.25 H (BEAKER) (test code = 358) GLUCOSE RANDOM 84 mg/dL 70-105 (BEAKER) (test code = 652) CALCIUM (BEAKER) 8.9 mg/dL 8.4-10.2 (test code = 697) EGFR (BEAKER) 47 Interpretatio n of eGFR (test code = mL/min/1.73 values Stage De scription 1092) sq m Result G1 Sera l or high >=90 G2 Mildly decreased 60-89 G3a Mildl y to moderately 45-5 9 G3b Moderately to s everely 30-44 G4 Severl y decreased 15-29 G5 Kidney failure <15Reported eGF R is based on the CKD-EPI 2021 equation that d oes not use a race coefficientEsti mated GFR is not as accur ate as Creatinine Brenda corinne in predicting glom erular filtration rate . Estimated GFR is not appl icable for dialysis patien ts Terrazzo Journeyman ID - ELISABET WPOCT-GLUCOSE [id number] 21:21:15 Test Item Value Reference Range Interpretation Comments POC-GLUCOSE METER 99 mg/dL 70-110 : TESTED A T [facility] 6720 (BEAKER) (test code = [facility], 1538) [address]: Terrazzo Journeyman/Techni catarino ID = [id number] for SRI EDGE POCT-GLUCOSE [id number] 16:49:34 Test Item Value Reference Range Interpretation Comments POC-GLUCOSE METER 98 mg/dL 70-110 : TESTED A T [facility] 6720 (BEAKER) (test code = [facility], 1538) 7[address]: Terrazzo Journeyman/Techni catarino ID = [id number] for Veena Echeverria POCT-GLUCOSE [id number] 12:17:44 Test Item Value Reference Range Interpretation Comments POC-GLUCOSE METER 124 mg/dL 70-110 H : TESTED A T [facility] 6720 (BEAKER) (test code = [facility], 1538) 67958: Terrazzo Journeyman/Techni catarino ID = [id number] for Veena Nieves (CELLAVISION MANUAL DIFF)2022-10-27 09:02:59 Test Item Value Reference Range Interpretation Comments NEUTROPHILS - REL 48 % (CELLAVISION)(BEAKER) (test code = 2816) LYMPHOCYTES - REL 27 % (CELLAVISION)(BEAKER) (test code = 2817) MONOCYTES - REL 5 % (CELLAVISION)(BEAKER) (test code = 2818) BASOPHILS - REL 5 % (CELLAVISION)(BEAKER) (test code = 2820) METAMYELOCYTES - REL 6 % 0-0 H (CELLAVISION)(BEAKER) (test code = 2821) MYELOCYTES - REL 5 % 0-0 H (CELLAVISION)(BEAKER) (test code = 2822) BANDS - REL (CELLAVISION)(BEAKER) 3 % 0-10 (test code = 2826) ATYPICAL LYMPHOCYTES - REL 1 % 0-0 H (CELLAVISION)(BEAKER) (test code = 2829) NEUTROPHILS - ABS 3.94 K/ul 1.56-6.13 (CELLAVISION)(BEAKER) (test code = 2830) LYMPHOCYTES - ABS 2.21 K/ul 1.18-3.74 (CELLAVISION)(BEAKER) (test code = 2831) MONOCYTES - ABS 0.41 K/uL 0.24-0.36 H (CELLAVISION)(BEAKER) (test code = 2832) BASOPHILS - ABS 0.41 K/uL 0.01-0.08 H (CELLAVISION)(BEAKER) (test code = 2835) METAMYELOCYTES - ABS 0.49 K/uL 0.00-0.00 H (CELLAVISION)(BEAKER) (test code = 2836) MYELOCYTES-ABS 0.41 K/uL 0.00-0.00 H (CELLAVISION)(BEAKER) (test code = 2837) BANDS - ABS (CELLAVISION)(BEAKER) 0.25 K/uL 0.00-0.80 (test code = 2840) ATYPICAL LYMPHOCYTES - ABS 0.08 K/uL 0.00-0.00 H (CELLAVISION)(BEAKER) (test code = 2858) TOTAL COUNTED (BEAKER) (test code = 100 1351) RBC MORPHOLOGY (BEAKER) (test code Normal = 762) WBC MORPHOLOGY (BEAKER) (test code Normal = 487) PLT MORPHOLOGY (BEAKER) (test code Normal = 486) ARTIFACT (CELLAVISION)(BEAKER) Present (test code = 3432) PLATELET CONCENTRATION Adequate (CELLAVISION)(BEAKER) (test code = 3438) Terrazzo Journeyman ID - Felicia Cabrera comments: Slide comments:CBC W/PLT COUNT & AUTO [id number] 09:02:58 Test Item Value Reference Range Interpretation Comments WHITE BLOOD CELL COUNT (BEAKER) 8.2 K/ L 3.5-10.5 (test code = 775) RED BLOOD CELL COUNT (BEAKER) 3.02 M/ L 3.93-5.22 L (test code = 761) HEMOGLOBIN (BEAKER) (test code = 9.2 GM/DL 11.2-15.7 L 410) HEMATOCRIT (BEAKER) (test code = 29.3 % 34.1-44.9 L 411) MEAN CORPUSCULAR VOLUME (BEAKER) 97 fL 79-95 H (test code = 753) MEAN CORPUSCULAR HEMOGLOBIN 30.5 pg 25.6-32.2 (BEAKER) (test code = 751) MEAN CORPUSCULAR HEMOGLOBIN CONC 31.4 GM/DL 32.2-35.5 L (BEAKER) (test code = 752) RED CELL DISTRIBUTION WIDTH 14.8 % 11.7-14.4 H (BEAKER) (test code = 412) PLATELET COUNT (BEAKER) (test 268 K/CU MM 150-450 code = 756) MEAN PLATELET VOLUME (BEAKER) 8.9 fL 9.4-12.3 L (test code = 754) NUCLEATED RED BLOOD CELLS 0 /100 WBC 0-0 (BEAKER) (test code = 413) BASIC METABOLIC [id number] 08:41:29 Test Item Value Reference Range Interpretation Comments SODIUM (BEAKER) 136 meq/L 136-145 (test code = 381) POTASSIUM 3.6 meq/L 3.5-5.1 (BEAKER) (test code = 379) CHLORIDE (BEAKER) 99 meq/L 98-107 (test code = 382) CO2 (BEAKER) 26 meq/L 22-29 (test code = 355) BLOOD UREA 11 mg/dL 7-21 NITROGEN (BEAKER) (test code = 354) CREATININE 1.10 mg/dL 0.57-1.25 (BEAKER) (test code = 358) GLUCOSE RANDOM 87 mg/dL 70-105 (BEAKER) (test code = 652) CALCIUM (BEAKER) 8.5 mg/dL 8.4-10.2 (test code = 697) EGFR (BEAKER) 57 Interpretatio n of eGFR (test code = mL/min/1.73 values Stage De scription 1092) sq m Result G1 Sera l or high >=90 G2 Mildly decreased 60-89 G3a Mildl y to moderately 45-5 9 G3b Moderately to s everely 30-44 G4 Severl y decreased 15-29 G5 Kidney failure <15Reported eGF R is based on the CKD-EPI 2021 equation that d oes not use a race coefficientEsti mated GFR is not as accur ate as Creatinine Brenda corinne in predicting glom erular filtration rate . Estimated GFR is not appl icable for dialysis patien ts Terrazzo Journeyman ID - ADMINPOCT-GLUCOSE [id number] 06:35:29 Test Item Value Reference Range Interpretation Comments POC-GLUCOSE METER 96 mg/dL 70-110 : TESTED A T [facility] 6720 (BEAKER) (test code = [facility], 1538) [address]: Terrazzo Journeyman/Techni catarino ID = [id number] for ELISABET MADRIGAL T4, [id number] 06:34:56 Test Item Value Reference Range Interpretation Comments FREE T4 (BEAKER) (test code = 655) 0.73 ng/dL 0.70-1.48 Terrazzo Journeyman ID - lmPOCT-GLUCOSE [id number] 22:42:40 Test Item Value Reference Range Interpretation Comments POC-GLUCOSE METER 113 mg/dL 70-110 H : TESTED A T [facility] 6720 (BEAKER) (test code = [facility], 1538) [address]: Terrazzo Journeyman/Techni catarino ID = [id number] for ELISABET VAZQUEZ POCT-GLUCOSE [id number] 15:39:35 Test Item Value Reference Range Interpretation Comments POC-GLUCOSE METER 131 mg/dL 70-110 H : TESTED A T [facility] 6720 (BEAKER) (test code = [facility], 1538) [address]: Terrazzo Journeyman/Techni catarino ID = [id number] for NATHEN MCKNIGHT T SPOT [id number] 13:54:10 Test Item Value Reference Range Interpretation Comments T-SPOT TB (BEAKER) (test See scanned report. code = 1683) NEG CONTROL SPOT COUNT See s canned report. (BEAKER) (test code = 1684) PANEL A SPOT (BEAKER) (test See scanned report. code = 1685) PANEL B SPOT (BEAKER) (test See scanned report. code = 1686) POS CONTROL SPOT CT (BEAKER) See scanned report. (test code = 1687) SCAN RESULT (test code = 7473965) see scanned reportLactate dehydrogenase (LDH), body [id number] 10:37:15LDH, Fluid10/26/2022 10:37 AM [facility]ORYAbsence of reference range indicates that normals have not been defined.Assay performance has not been validated for this type of specimen.[facility] CenterProtein, body [id number] 10:37:15Protein, Fluid10/26/2022 10:[address] [facility]ORYAbsence of reference range indicates that normals have not been defined.Assay performance has not been validated for this type of specimen.[facility](CELLAVISION MANUAL DIFF)2022-10-26 07:40:44 Test Item Value Reference Range Interpretation Comments NEUTROPHILS - REL 40 % (CELLAVISION)(BEAKER) (test code = 2816) LYMPHOCYTES - REL 41 % (CELLAVISION)(BEAKER) (test code = 2817) MONOCYTES - REL 4 % (CELLAVISION)(BEAKER) (test code = 2818) BASOPHILS - REL 3 % (CELLAVISION)(BEAKER) (test code = 2820) METAMYELOCYTES - REL 4 % 0-0 H (CELLAVISION)(BEAKER) (test code = 2821) MYELOCYTES - REL 6 % 0-0 H (CELLAVISION)(BEAKER) (test code = 2822) BANDS - REL (CELLAVISION)(BEAKER) 1 % 0-10 (test code = 2826) NEUTROPHILS - ABS 3.04 K/ul 1.56-6.13 (CELLAVISION)(BEAKER) (test code = 2830) LYMPHOCYTES - ABS 3.12 K/ul 1.18-3.74 (CELLAVISION)(BEAKER) (test code = 2831) MONOCYTES - ABS 0.30 K/uL 0.24-0.36 (CELLAVISION)(BEAKER) (test code = 2832) BASOPHILS - ABS 0.23 K/uL 0.01-0.08 H (CELLAVISION)(BEAKER) (test code = 2835) METAMYELOCYTES - ABS 0.30 K/uL 0.00-0.00 H (CELLAVISION)(BEAKER) (test code = 2836) MYELOCYTES-ABS 0.46 K/uL 0.00-0.00 H (CELLAVISION)(BEAKER) (test code = 2837) BANDS - ABS (CELLAVISION)(BEAKER) 0.08 K/uL 0.00-0.80 (test code = 2840) TOTAL COUNTED (BEAKER) (test code 100 = 1351) MANUAL NRBC PER 100 CELLS (BEAKER) 2 /100 WBC 0-0 H (test code = 1353) GIANT PLATELETS (BEAKER) (test Present code = 313) TOXIC GRANULATION (BEAKER) (test Present code = 771) POLYCHROMATOPHILLIC RBCS(BEAKER) 1+ few (test code = 478) ANISOCYTOSIS (BEAKER) (test code = 1+ few 961) MACROCYTES (BEAKER) (test code = 1+ few 964) ARTIFACT (CELLAVISION)(BEAKER) Present (test code = 3432) PLATELET CONCENTRATION Adequate (CELLAVISION)(BEAKER) (test code = 3438) [employer] Journeyman ID - home Sin comments: Slide comments:CBC W/PLT COUNT & AUTO [id number] 07:40:43 Test Item Value Reference Range Interpretation Comments WHITE BLOOD CELL COUNT (BEAKER) 7.6 K/ L 3.5-10.5 (test code = 775) RED BLOOD CELL COUNT (BEAKER) 2.97 M/ L 3.93-5.22 L (test code = 761) HEMOGLOBIN (BEAKER) (test code = 9.0 GM/DL 11.2-15.7 L 410) HEMATOCRIT (BEAKER) (test code = 28.8 % 34.1-44.9 L 411) MEAN CORPUSCULAR VOLUME (BEAKER) 97 fL 79-95 H (test code = 753) MEAN CORPUSCULAR HEMOGLOBIN 30.3 pg 25.6-32.2 (BEAKER) (test code = 751) MEAN CORPUSCULAR HEMOGLOBIN CONC 31.3 GM/DL 32.2-35.5 L (BEAKER) (test code = 752) RED CELL DISTRIBUTION WIDTH 15.0 % 11.7-14.4 H (BEAKER) (test code = 412) PLATELET COUNT (BEAKER) (test 222 K/CU MM 150-450 code = 756) MEAN PLATELET VOLUME (BEAKER) 8.5 fL 9.4-12.3 L (test code = 754) NUCLEATED RED BLOOD CELLS 0 /100 WBC 0-0 (BEAKER) (test code = 413) BASIC METABOLIC [id number] 06:22:16 Test Item Value Reference Range Interpretation Comments SODIUM (BEAKER) 136 meq/L 136-145 (test code = 381) POTASSIUM 3.8 meq/L 3.5-5.1 (BEAKER) (test code = 379) CHLORIDE (BEAKER) 100 meq/L 98-107 (test code = 382) CO2 (BEAKER) 25 meq/L 22-29 (test code = 355) BLOOD UREA 13 mg/dL 7-21 NITROGEN (BEAKER) (test code = 354) CREATININE 0.98 mg/dL 0.57-1.25 (BEAKER) (test code = 358) GLUCOSE RANDOM 81 mg/dL 70-105 (BEAKER) (test code = 652) CALCIUM (BEAKER) 8.6 mg/dL 8.4-10.2 (test code = 697) EGFR (BEAKER) 66 Interpretatio n of eGFR (test code = mL/min/1.73 values Stage De scription 1092) sq m Result G1 Sera l or high >=90 G2 Mildly decreased 60-89 G3a Mildl y to moderately 45-5 9 G3b Moderately to s everely 30-44 G4 Severl y decreased 15-29 G5 Kidney failure <15Reported eGF R is based on the CKD-EPI 2020 equation that d oes not use a race coefficientEsti mated GFR is not as accur ate as Creatinine Brenda sun in predicting glom erular filtration rate . Estimated GFR is not appl icable for dialysis patien ts [employer] Journeyman ID - BVOperator ID - BVPOCT-GLUCOSE [id number] 06:19:23 Test Item Value Reference Range Interpretation Comments POC-GLUCOSE METER 98 mg/dL 70-110 : TESTED A T [employer] ([employer]) (test code = [facility] [employer] [facility], 153) [address]: Terrazzo Journeyman/Techni catarino ID = [id number] for Shan Hutchins T4, [id number] 06:15:36 Test Item Value Reference Range Interpretation Comments FREE T4 ([employer]) (test code = 655) 0.72 ng/dL 0.70-1.48 [employer]ra[employer] Journeyman ID - BVPOCT-GLUCOSE [id number] 21:27:14 Test Item Value Reference Range Interpretation Comments POC-GLUCOSE METER 84 mg/dL 70-110 : TESTED A T [facility] 6720 ([employer]) (test code = [facility] [employer] [facility], 153) [address]: [employer]ra[employer] Journeyman/Techni catarino ID = [id number] for Shan Hutchins (CELLAVISION MANUAL DIFF)2022-10-25 07:12:22 Test Item Value Reference Range Interpretation Comments NEUTROPHILS - REL 49 % (CELLAVISION)(BEAKER) (test code = 2816) LYMPHOCYTES - REL 30 % (CELLAVISION)(BEAKER) (test code = 2817) MONOCYTES - REL 8 % (CELLAVISION)(BEAKER) (test code = 2818) BASOPHILS - REL 2 % (CELLAVISION)(BEAKER) (test code = 2820) METAMYELOCYTES - REL 1 % 0-0 H (CELLAVISION)(BEAKER) (test code = 2821) MYELOCYTES - REL 6 % 0-0 H (CELLAVISION)(BEAKER) (test code = 2822) BANDS - REL (CELLAVISION)(BEAKER) 3 % 0-10 (test code = 2826) ATYPICAL LYMPHOCYTES - REL 1 % 0-0 H (CELLAVISION)(BEAKER) (test code = 2829) NEUTROPHILS - ABS 3.23 K/ul 1.56-6.13 (CELLAVISION)(BEAKER) (test code = 2830) LYMPHOCYTES - ABS 1.98 K/ul 1.18-3.74 (CELLAVISION)(BEAKER) (test code = 2831) MONOCYTES - ABS 0.53 K/uL 0.24-0.36 H (CELLAVISION)(BEAKER) (test code = 2832) BASOPHILS - ABS 0.13 K/uL 0.01-0.08 H (CELLAVISION)(BEAKER) (test code = 2835) METAMYELOCYTES - ABS 0.07 K/uL 0.00-0.00 H (CELLAVISION)(BEAKER) (test code = 2836) MYELOCYTES-ABS 0.40 K/uL 0.00-0.00 H (CELLAVISION)(BEAKER) (test code = 2837) BANDS - ABS (CELLAVISION)(BEAKER) 0.20 K/uL 0.00-0.80 (test code = 2840) ATYPICAL LYMPHOCYTES - ABS 0.07 K/uL 0.00-0.00 H (CELLAVISION)(BEAKER) (test code = 2858) TOTAL COUNTED (BEAKER) (test code 100 = 1351) MANUAL NRBC PER 100 CELLS (BEAKER) 2 /100 WBC 0-0 H (test code = 1353) RBC MORPHOLOGY (BEAKER) (test code Normal = 762) WBC MORPHOLOGY (BEAKER) (test code Normal = 487) GIANT PLATELETS (BEAKER) (test Present code = 313) ARTIFACT (CELLAVISION)(BEAKER) Present (test code = 3432) PLATELET CONCENTRATION Adequate (CELLAVISION)(BEAKER) (test code = 3438) [employer] Journeyman ID - home sheaBaldomatthieu comments: Slide comments:CBC W/PLT COUNT & AUTO [id number] 07:12:21 Test Item Value Reference Range Interpretation Comments WHITE BLOOD CELL COUNT (BEAKER) 6.6 K/ L 3.5-10.5 (test code = 775) RED BLOOD CELL COUNT (BEAKER) 2.89 M/ L 3.93-5.22 L (test code = 761) HEMOGLOBIN (BEAKER) (test code = 8.8 GM/DL 11.2-15.7 L 410) HEMATOCRIT (BEAKER) (test code = 27.4 % 34.1-44.9 L 411) MEAN CORPUSCULAR VOLUME (BEAKER) 95 fL 79-95 (test code = 753) MEAN CORPUSCULAR HEMOGLOBIN 30.4 pg 25.6-32.2 (BEAKER) (test code = 751) MEAN CORPUSCULAR HEMOGLOBIN CONC 32.1 GM/DL 32.2-35.5 L (BEAKER) (test code = 752) RED CELL DISTRIBUTION WIDTH 14.9 % 11.7-14.4 H (BEAKER) (test code = 412) PLATELET COUNT (BEAKER) (test 213 K/CU MM 150-450 code = 756) MEAN PLATELET VOLUME (BEAKER) 8.9 fL 9.4-12.3 L (test code = 754) NUCLEATED RED BLOOD CELLS 0 /100 WBC 0-0 (BEAKER) (test code = 413) BASIC METABOLIC [id number] 06:39:18 Test Item Value Reference Range Interpretation Comments SODIUM (BEAKER) 137 meq/L 136-145 (test code = 381) POTASSIUM 4.0 meq/L 3.5-5.1 (BEAKER) (test code = 379) CHLORIDE (BEAKER) 103 meq/L 98-107 (test code = 382) CO2 (BEAKER) 25 meq/L 22-29 (test code = 355) BLOOD UREA 16 mg/dL 7-21 NITROGEN (BEAKER) (test code = 354) CREATININE 0.99 mg/dL 0.57-1.25 (BEAKER) (test code = 358) GLUCOSE RANDOM 84 mg/dL 70-105 (BEAKER) (test code = 652) CALCIUM (BEAKER) 8.7 mg/dL 8.4-10.2 (test code = 697) EGFR (BEAKER) 65 Interpretatio n of eGFR (test code = mL/min/1.73 values Stage De scription 1092) sq m Result G1 Sera l or high >=90 G2 Mildly decreased 60-89 G3a Mildl y to moderately 45-5 9 G3b Moderately to s everely 30-44 G4 Severl y decreased 15-29 G5 Kidney failure <15Reported eGF R is based on the CKD-EPI 2020 equation that d oes not use a race coefficientEsti mated GFR is not as accur ate as Creatinine Brenda corinne in predicting glom erular filtration rate . Estimated GFR is not appl icable for dialysis patien ts [employer] Journeyman ID - HOME BOperator ID - HOME BOperator ID - HOME BOperator ID - HOME BOperator ID - HOME BOperator ID - HOME BOperator ID - HOME BOperator ID - HOME BOperator ID - HOME BOperator ID - HOME BOperator ID - HOME BOperator ID - HOME BOperator ID - HOME BT4, [id number] 06:18:52 Test Item Value Reference Range Interpretation Comments FREE T4 (BEAKER) (test code = 655) 0.59 ng/dL 0.70-1.48 L [employer] Journeyman ID - ADMINpH, body [id number] 20:43:48 Test Item Value Reference Range Interpretation Comments pH, Body Fluid 8.0 (test code = 2748-2) PH FLUID TYPE Body fluid Reference (test code = range:Reference 37748-1) ranges have not been established on thistype of flu id for this test. THEO (test code Performing Lab *TOM = THEO) [facility] [address] [place] [address] Cali Cruz MD, PhD [facility] [id number] 17:20:19 Test Item Value Reference Range Interpretation Comments POC-GLUCOSE METER 97 mg/dL 70-110 : TESTED A T [facility] 67[address] (BEAKER) (test code = [place], 1538) [address]: Terrazzo Journeyman/Techni catarino ID = [id number] for Nobl eza, Madalyn T4, [id number] 14:56:39 Test Item Value Reference Range Interpretation Comments FREE T4 (BEAKER) (test code = 655) 0.58 ng/dL 0.70-1.48 L Terrazzo Journeyman ID - HOME B(CELLAVISION MANUAL DIFF)2022-10-24 08:31:19 Test Item Value Reference Range Interpretation Comments NEUTROPHILS - REL 43 % (CELLAVISION)(BEAKER) (test code = 2816) LYMPHOCYTES - REL 36 % (CELLAVISION)(BEAKER) (test code = 2817) MONOCYTES - REL 6 % (CELLAVISION)(BEAKER) (test code = 2818) BASOPHILS - REL 3 % (CELLAVISION)(BEAKER) (test code = 2820) METAMYELOCYTES - REL 4 % 0-0 H (CELLAVISION)(BEAKER) (test code = 2821) MYELOCYTES - REL 4 % 0-0 H (CELLAVISION)(BEAKER) (test code = 2822) PROMYELOCYTES - REL 1 % 0-0 H (CELLAVSION)(BEAKER) (test code = 2825) ATYPICAL LYMPHOCYTES - REL 1 % 0-0 H (CELLAVISION)(BEAKER) (test code = 2829) NEUTROPHILS - ABS 2.92 K/ul 1.56-6.13 (CELLAVISION)(BEAKER) (test code = 2830) LYMPHOCYTES - ABS 2.45 K/ul 1.18-3.74 (CELLAVISION)(BEAKER) (test code = 2831) MONOCYTES - ABS 0.41 K/uL 0.24-0.36 H (CELLAVISION)(BEAKER) (test code = 2832) BASOPHILS - ABS 0.20 K/uL 0.01-0.08 H (CELLAVISION)(BEAKER) (test code = 2835) METAMYELOCYTES - ABS 0.27 K/uL 0.00-0.00 H (CELLAVISION)(BEAKER) (test code = 2836) MYELOCYTES-ABS 0.27 K/uL 0.00-0.00 H (CELLAVISION)(BEAKER) (test code = 2837) PROMYELOCYTES - ABS 0.07 K/uL 0.00-0.00 H (CELLAVISION)(BEAKER) (test code = 2838) ATYPICAL LYMPHOCYTES - ABS 0.07 K/uL 0.00-0.00 H (CELLAVISION)(BEAKER) (test code = 2858) TOTAL COUNTED (BEAKER) (test code 100 = 1351) MANUAL NRBC PER 100 CELLS (BEAKER) 2 /100 WBC 0-0 H (test code = 1353) GIANT PLATELETS (BEAKER) (test Present code = 313) HYPERSEGMENTATION Present (CELLAVISION)(BEAKER) (test code = 3445) POLYCHROMATOPHILLIC RBCS(BEAKER) 1+ few (test code = 478) ARTIFACT (CELLAVISION)(BEAKER) Present (test code = 3432) PLATELET CONCENTRATION Adequate (CELLAVISION)(BEAKER) (test code = 3438) [employer] Journeyman ID - home Sin comments: Slide comments:CBC W/PLT COUNT & AUTO [id number] 08:31:18 Test Item Value Reference Range Interpretation Comments WHITE BLOOD CELL COUNT (BEAKER) 6.8 K/ L 3.5-10.5 (test code = 775) RED BLOOD CELL COUNT (BEAKER) 2.97 M/ L 3.93-5.22 L (test code = 761) HEMOGLOBIN (BEAKER) (test code = 9.3 GM/DL 11.2-15.7 L 410) HEMATOCRIT (BEAKER) (test code = 28.6 % 34.1-44.9 L 411) MEAN CORPUSCULAR VOLUME (BEAKER) 96 fL 79-95 H (test code = 753) MEAN CORPUSCULAR HEMOGLOBIN 31.3 pg 25.6-32.2 (BEAKER) (test code = 751) MEAN CORPUSCULAR HEMOGLOBIN CONC 32.5 GM/DL 32.2-35.5 (BEAKER) (test code = 752) RED CELL DISTRIBUTION WIDTH 15.0 % 11.7-14.4 H (BEAKER) (test code = 412) PLATELET COUNT (BEAKER) (test 158 K/CU MM 150-450 code = 756) MEAN PLATELET VOLUME (BEAKER) 9.3 fL 9.4-12.3 L (test code = 754) NUCLEATED RED BLOOD CELLS 0 /100 WBC 0-0 (BEAKER) (test code = 413) BASIC METABOLIC [id number] 06:19:17 Test Item Value Reference Range Interpretation Comments SODIUM (BEAKER) 132 meq/L 136-145 L (test code = 381) POTASSIUM 4.1 meq/L 3.5-5.1 (BEAKER) (test code = 379) CHLORIDE (BEAKER) 98 meq/L 98-107 (test code = 382) CO2 (BEAKER) 25 meq/L 22-29 (test code = 355) BLOOD UREA 20 mg/dL 7-21 NITROGEN (BEAKER) (test code = 354) CREATININE 1.04 mg/dL 0.57-1.25 (BEAKER) (test code = 358) GLUCOSE RANDOM 81 mg/dL 70-105 (BEAKER) (test code = 652) CALCIUM (BEAKER) 8.6 mg/dL 8.4-10.2 (test code = 697) EGFR (BEAKER) 61 Interpretatio n of eGFR (test code = mL/min/1.73 values Stage De scription 1092) sq m Result G1 Sera l or high >=90 G2 Mildly decreased 60-89 G3a Mildl y to moderately 45-5 9 G3b Moderately to s everely 30-44 G4 Severl y decreased 15-29 G5 Kidney failure <15Reported eGF R is based on the CKD-EPI 2021 equation that d oes not use a race coefficientEsti mated GFR is not as accur ate as Creatinine Brenda corinne in predicting glom erular filtration rate . Estimated GFR is not appl icable for dialysis patien ts Terrazzo Journeyman ID - HOME BPOCT-GLUCOSE [id number] 21:59:57 Test Item Value Reference Range Interpretation Comments POC-GLUCOSE METER 112 mg/dL 70-110 H : TESTED A T [facility] 6702 (BEAKER) (test code = [place], 1538) [address]: Terrazzo Journeyman/Techni catarino ID = [id number] for NIRMAL DEL VALLE [id number] 19:59:05 Test Item Value Reference Range Interpretation Comments Case Report (test code Medical Cytology = 104) Report Case: [id number] Authorizing Provider: Addis Pulliam MD Collected: 10/21/2022 08:51 AM Ordering Location: [place] [address] CC Received: 10/21/2022 09:06 AM Pathologist: Apurva Xiong MD Specimen: Pericardial DIAGNOSIS (test code = [id number] 3220) FuZzEwMzNcZnRuYmpcdWMx IHtccnRmMVxlcGljMTAyMD PcFZ9ywYbtaNl3qWtaZNPi ljP7iKZvBHlbv6ztDYX2q3 onuxxaKFLxGCxvTn4jbCYq eCgmKxMdVABnIXo4dR99PN XurX2dnHGhFLd4QKCepTCa dvQjGqZhQIZldBVqrNM6MQ UaML8ebccpCWomTDzrEZAm evZ1QNQkqHYuT3IlLJGlDQ 4gfvieQAO9ORspKFBbLPY7 XrBqXGVik7Colpi6CqQmqP FyZFxwbGFpblxmczIwIFBF UklDQVJESUFMIEZMVUlEIC dGZHOWP9EHWxKgNJ1KPXHI XLkoKbbEN9pfShfxfC0jSX TyTY3ZKRaCHLyJHUPXI8Hf ASPLERpPAF5DNHBnJ0AKMV FVKS2KKgHtEBApji39XIB4 RnGhd5X7CCV2RFLjETIvc5 lcZGVmbGFuZzEwMzNcZnRu PdmswIMsJPCgHlUld2dvn6 61uJMcw0fuNBTmWjM0iZKz HVMerWZoH776KGCzPGxbf2 ybz3NwYFChnHEzq7X4NHQW mukhfYu2zNitX25kj6Q4Bv ckZ1ckORRyLLCrE5OnUR6y ELPnJaw7RUK6ZAT3DYBlOB UjF9HrPM4fMZTjiWKwWCg2 u8lvlFwuOIHbBRH5x2moNM bvceXtMC4zor7noPe1o9jk czEgRGVmYXVsdCBQYXJhZ3 BusQnnTy3iaJf0rMtpZkat RQI7Lcq1TY1crz63ifb1oY rdLRUdfzrvTsM2QTqoLTTr gviyMFw5KAraJTBumIS5SO WcsPCsG6SqZWRtYA1ueix1 LOE3WZqwFBYfHuA3KNOslC VkEKUokYoyXFcxb843EVA5 WbQqUL0lF3Mpu5V2aF3fxT ThBZHozFKfLyZtORIyab9q mQGcKAsix0FbFES2ttB0cF KipRNjUINvElX8FAwtUS4z ur63DWYzBEI4cn5lwUJrwL clnhCosOLkEHjiC4VtCWOe l557ANPgS7JnHJHfz1Y9ys ItQuQtDWSpqUH0ekC9FMYf II7vlukfx0rqOSmaVEpuLW RgjeK9ytP7VHRyqOPaW5Dz kY4fAKKlLS6sbzlad4bjXE Y2ZNvzBYTdQEW0JbDwSLEf t8Cngbo4VmFur3ZwlJIvGP ktR43ly733QPXtbgSrS2lr bGFpblxwbGFpblxmMFxmcz R5GPEzXKoisoypCMCsSJzv S9qrBqQoGNEhsOlpZAtkf8 NoXGYxXGZzMjJcdGFiXHRh Vlr0KGGbzOSkSGLiRoCgW0 rjrwtsMlDQOGOtc0biU9pa eMEEhUVeJ5GaASrovmNiHI tqYRodNvAaFLw0KX12NnCv RTNsqc75 COMMENT (test code = r0msxXStVVRyxFKnHKXtXS 3353) yoazGoONFufMSwT5Lhpvce EEzfKH6pSU6vxAztrCIyyN CtVLZhBsHgk6tcf114tTWo g1orBIXRwbgytGj4jHygJ9 4fl4X5OalpI88uaXObLHE1 NBQxDKOlsAFpJZEkDNC3ST RqvBThP1jnAZSaMY5resdd XUhsCMiyHPWppHI4WEAchL LrO0AnAYQyQTzkNUDealj1 HpTvFc5hfVZagZhvITqiSI JkXHBsYWluXGZzMjAgVGhl IHNwZWNpbWVuIGlzIGNvbX Mij3YsGI8pPRIbvmqetcPb njUykdGsD6MgzdSkEUOeBT NkqU4cIW9ga275kKRtuIRf HNRdcKauXLLwfAd3GQKwy0 m6cLCslZHiyTFjmM3xpO3a nIEnab1mZQ7AOSNmWStkto RaYYCsd9ChFVIsIKvehQaa OZGqnr0gdffcqJJsK30yrF XtyVmgKK6tOT3gDQM5FIxj xA0zGNemPJkaUT82eIYdWH CoER0iAM3fqYfpfhSjgHUw BWpwgfOnoeCti2Wmuv9ebY FyXHBhcn0= CPT Code(s) (test code a0stmWViDTMzhOLjWMSbWC = 3357) zqtgDvJRVuvMOvN4Wlxswm YLujVG6dHC0qeTlreEKiwM EzRBLnIeCsb7tby587wOAr g8qpXWJQscliwBt5eOpwZ1 0ns8X4TekqA82dlIOaKIC6 KHDjPVAbgWIvYOEnDJZ5IQ YmtMWmZ8jeQCAcCM6stgsr QBexRScoOLUgxII7HLJnzL TqK2BcDWPnIMxmGIXctkl8 WgFtMh7rvFCmlXfsRLffFW JkXHBsYWluXGZzMjAgODgx XTjwTNv6TlF1AUR7UFD5Tm xwYXJ9 CLINICAL DATA (test b7cwqWTcURHtqQKxYASnNY code = 3351) zgwxMnCNMtvLOiJ4Jsqsnp OFxyTH8aKK5jgRtneDDvsQ YfVMFsPoJqs7vag154cHUz a5qmMMMIxvrolDz8lWepE5 6qk4P1AgvfJ25oxQKbGEW2 TKYfWSGakSIrGODpWUR3GR EukQTdZ0ojEPZfYH8uqvuj UFycTOlvGXIuyVX9WEVwwR KqN0LwSMAmBJvpTQWibhw4 XsIbSh2asNUbbEljKLxoHN JkXHBsYWluXGZzMjAgSGlz cU9ddLYcGvWmzWFgbVXtBD Bmj18pZQGdFGIfsYAeIWYw uZCjUTQ7wAMwbFhrBGnbk0 Eqt55xFJ5PGoPzWIKcdDVn qWz9nt9tJJgsqBLbzj93QM 9pZCqrzo90kLgkw1xfruBx WUjrdnLxeqHgWB93sxH8gH EdJJJmrN1jsGpiTQ7kSDXZ MfcnPm45ptPeqH5tcGC6DX WsF9zzkEzngWYfgQIwFzD1 v9umodDiWQ9gJVfsuqmlZV BlcmljYXJkaWFsIGVmZnVz mS5cBLv+ys2aXJ0mSQWlD7 FdBBklK6CmkGCmfPSyqtlb dGggcGVyaWNhcmRpYWwgZH GrjH1hyVqpZ7GmVJ12VMpl icPonoYpNJZhMoF5VsHuK8 Pvm8Efs9Duggc2vX6arDDe Kyv4jFHwXAZyTXPuSDShXV AYUUeoaTigutItc1a1lHzz hdJaQvOnLsP3j2ayzzubkQ LhBSzbThAqra3pWNA6h7Sn pMVqNO0jwOJwyS== SPECIMEN SOURCE (test f0dzmBEaWPGttEIqJSZpDO code = 3377) cqnfFaVCSyiFHsX1Lgzhbh XIxvXV2wLH7peTbdjCAkuR OzGDXbOoAcg0bkk525fWGu p0mqFZGIapbhcWs6eCpxD0 3am5D3CcnyK22muWIkJOZ6 BEMyUDFjaPPsDLKhXBN3CS JwxEPvW0igOQMwPB5iseab UUyiGAibQSIdjLT9YRAxqC TzS4RiWCJlSEjzDQVamig9 JfTxJy3qtHHfjHwcAChiPY JkXHBsYWluXGZzMjAgUEVS SUNBUkRJQUwgRkxVSURccG FyfQ== GROSS DESCRIPTION (test j2jmcDTfSZSqfKRUKTTtGQ code = 3426006282) JtSA7axYnhxLj2wAdlXGJn fbL3qYDpNWxwd3ooTUC0s1 waogIEUbekLQQqCQ3rQNel DJMcIA9kJdBtGNLoSrQqAU BhcGVydzEyMjQwXHBhcGVy vEG4MNKaUV2itwzqACtaQG xmXLTnlrA3YURxeAFqF9Ct MGOdSD8rbaqsVEI3HBCWJt hqXg5ggBVvpZmkNcTgPcUh YXJzZXQwXGZuaWwgQXJpYW d0yP6BValoKSH7TDYVXfks OtudzMmak0VnvHGeBVJrQH xcaWQgNTEwMDAgXFxkYiBP TiIeZrKzRSb1CPB1UDPzWK r0RAfcQsAPGFQ9TZqdZFEl USz6KBagIFsvvCHwDPVjBM PdDPUuXZgyxuH8v1zwXDSs iLZsLBF7QEjbx7weOQtmPT J9GGGaTxXzCXCcGZ1ALkGg JPIwBkNaNEyfZbG5WRb3HN XZAwFdShTtRtP9VoWkSfjj BFc6GXc3UArLQzN5AUE8IA N8HFJnAMT1FYCoDFf2XKRv XFxzcyAzIFxcZmwgXFxuY3 1ccGFyZCANClxwbGFpblxm czIyIEEuIFBlcmljYXJkaW VuBBUdqnACIysuNYNvKH3K XHBsYWluXGZzMjJcbHRyY2 gpRBLzE28rb4XDi4OkHJ9I XIv3oeFedevsxF4gXJLrfu Zpo1YrPLeoxCnkVDWeQbCp DQpcZnMyMCBSZWNlaXZlZC Z1UNEtrEhkBC9xBQIzIjg8 zAE0QZVmUOYcyeBzCAWiZ3 r1v4SohZ0oBARtDYIjHAkc BNMmo3SiDMWfEV9gsZjbHY FjhRgaKkmjJ4yth9QfESTc oYKlFOarFFHhgh3lfYtzNR L3LLYkTvZcNE7rHKApPCAd DdSlUo0KAGUtgYPYTXN0HD 0eSXhaXRBaI0DhD4ZqtnJ3 u7ogdHxay1WouQIeCF2wsK PpMM4DIVOmtvIcFTtkOaOs MiANCn0= MICROSCOPIC DESCRIPTION g3bkqJSdAJGtiIJlLTPwXQ (test code = 3371) nbtzQxMPGoeIFaU6Aakfce EYmnUS5qRX1rmJlzqSAocK CmVBOkGfQhy6ood417hNUo u0bmJFSDgoyxgNl4gUwaH3 7kf2U6WosxJ93piGCxMYD0 IFHjGQUxiVPzJVUpAVN4OK LshEQqY7jdFLWjWA0lngyr HAkgKFckKJOvaFJ6LXQwkL WfE8BkDDIcYDsmKPQvlpj4 DmHcAs0mnYKjbWllSFwrWQ JkXHBsYWluXGZzMjAgUGVy Sq7lkZIwJhWjkARvcZ== STATEMENT OF ADEQUACY Satisfactory (test code = 2757) SPECIAL STUDIES (test v4xoeXUqDLKyp1gqRXIojV code = 3376) FuZzEwMzNcZnRuYmpcdWMx EUvvhyLeTGtsl9WiZ7OxJl AwMFxhbnNpXGRlZmxhbmcx CUHxHYY6mbDbFEVdVKbzQQ RiYRkmWh7whQZigSrhZdOw BYLmm1wyjbQXtlstqVv5q2 ntDCYyUoU8wEZjINeaA4kz yiRvtMAvB5JljZBjtWb5h9 fjUaUxYxU2kPLpFWspY9hd sdYsySFcPFHvZCe4uC67LP CexA4lsKHmFZgrulVlKvV0 HPxyBBUnSoJ2IYJbwSNgHQ GvU4vwQQTsBQfnUPJyVNhh rVOlDNL7hRgyo6A2rRXuvO MudLavLoMuVfFnCeVQr9Jy BGe6yYrtX7KvNCMoEoV4dT QgUGFyYWdyYXBoIEZvbnQ7 tGfjodAma63cdIRiUNSmGC JfZjVtzTaeTKIqMRTFe4It oIwvHFH2xPf6eGpoLkxsRQ R5Caq8SE2qjn54vgh8iTak MFYvhztnIrU1AEksHNUidf vjXEo7BAaiMOLwxLW9WFYi hWRsU7FhBRTbIH2hqya7YX U6GTttVFZnDxY3NFSwwJVe CESgvFviHSbiu615EKG1Jc NuEN7cZ8Qka9F8aO3yrSIi XDOeyOQfWdDzJFMohe7ixM CuEEpnx4JgNNA0zdA4rXSf aJBgZGWzIP97Moobu4BoCc tjz4SxU94puHU1DBaow1ul LA7fBeZ6ixHiWLnaz0xotD 4jQzH0MWnaCO0gWL8gKFEj dP7keojrCBUgWhUoqiyqEM ZqvUgsrdDgIl0eoSvpACN1 JInuA1yhnK2rUmM4ZFnwB8 xtfT2dRPn6JDqygZB6SCPi vL9oOK0euovyq9fqSUwdTZ sxIQBxreE7rgS6QNEndTJk W6JwaK3qTZKiXG4frcalz7 iiXCE2VSlgYYQgYTN5GpUs TZGyd1Lzeyq6IoEhm2IaeC HmUHeoN43pt771JOQstrRg A7bfyZVniscwjDHbdvcfQA afmvO9TKOeWHSmUZglDOJu XGZzMjJcbGFuZzEwMzNcaG ljaFxmMVxkYmNoXGYxXGxv O6pcMeIpS2DsLODhNdXxAQ irFDgolWBhiXEyoKI0pU7g TG2lRFGzuVEnK6DaWAOdwz CgbYWdGQY3tTBynICnFB7k EVwenJEtk5ybh2OcU3qiiU qwaAE3JZ4cJWNiEMQdZMpk o0YgwD0sInpsqGGxgzwmBQ xmczIyXGxhbmcxMDMzXGhp F3roMlGfFFNxjAiqNLvsy2 NoXGYxXGNmMlxmczIyXGx0 cmNoXHBhclxwYXJccGxhaW 4cNzZbHwNdLguaSV2gMEJt W4kfdEHqFBLoQPBvL4geQu IzzS0znYzkSKkgYbDlIpMu CtIMi050ui4lLPGnySVyjg QAfDNslX1yIYkmLLzeATbo zIStRIvxh9fhYFPvt4y7bF HuMEMvntQst8bmMWsublMt YIHcyRXeeWXzUZNea88xCW rlfVikbGhfVVXrq7LdwVpg f4BbAbEkMEzlo5PvV37uhG JvbCBzbGlkZXMgcnVuIGFs p15ms0crWEGnOlL9vTUsoQ L8nGJcwGCsp9NcoHvrIOKh w3jrKBMcot2fjponeMJsv0 HwrQ5geqkkXAqnmRXynaEe RYLds9c1pLVvUMVfRQVpSA jflZt1KLZly796xn7erxY0 hCDqCJU8QCakKAEhSZAuof UgZXZhbHVhdGVkXHBsYWlu XGYxXGZzMjJcbGFuZzEwMz NcaGljaFxmMVxkYmNoXGYx FVuwQ0joXfPoK6CrJMByYz EffJRlL7dtuRDrWIUkGUlu XGYxXGZzMjJcbGFuZzEwMz NcaGljaFxmMVxkYmNoXGYx NOndK7pyWgOsV5StVJSyIw IgIFxwbGFpblxmMVxmczIy HTbtoznxZJJfAGbwG5dkHs ZeGIFkiJpzTSxnk9HrBMHk MLSuFgnjqrRhTRw6rwUkPN BhclxwbGFpblxmMVxmczIy ASuodlsyBWCsBWcwY5byUj KvVAJixFplQTjgw5PaPAGd XGNmMlxmczIyIEltbXVub2 toa5RaX2aodFyqsMQ2VFCi L1rejFMlqFK4TNZ2qA8jKS vrhlFdXSQfk7FdHVCkAYZw BcL7fE4tFKN2VeEHwRibKX BsYWluXGYxXGZzMjJcbGFu ZzEwMzNcaGljaFxmMVxkYm VeDGHrUOlaD6fzZnSmB9Qw LDHwFmWwkVdwZSmfUDg1Fi xwbGFpblxmMVxmczIyXGxh uzclIYJuANqrA4akYsMvJT DdaBccBZyss9InFZIiBBOi MlxmczIyIHMgTWVkaWNhbC PHQP83PFNoEBFifDiedW7q rNJLJCHnxoF1g5H3EGoeBX ErNUu0PJrrerAtBJUmvZ6k AOXuHX3eJZj7tfYqXOMky7 PiEB7qEHJzoVUjVTV7RUWu f4LmI3Zzg9AfTWShDDRodi 1xeoVdJfCRqILjHGGdez05 AZMxZA5cK9frWLCbMTNgli ZuaWPiz8UqHNCwsMV5yHDw YF4IGzKHe06nYCPrNKDMqy WfQMFdqFtfyHL7sxU6sI4c LiBUaGUgRkRBIGhhcyBkZX Jxlr5eghHnGEVhJQDuw7Kg aSAtrNHfmsMfV4Zqd8FtPD Npek66WVznrIIqqa22GG7u I4Dqa0MwaQ0hHTgoNUMgg9 VcsRXfrZMqXGOnr1TrD3lj ubbzUHkbyKGmyU5xWCObUN r9NHSxp8EgBAYhr0LaGxEu eeVtWKXdJOUkYRHwmK85WC T6lYrcxMghwwXrFV1nJJAy koItXXLsESKmvB9kSKjsoy OlKQWvcgK5y6A9OYuxUWJb fiIcNcopBAQ1hnKqhqY4bF MzW5hsyzdpMNclNBXub1Vf rR0iyLYMvPHus8BpsRMowC SZrPXeIO3ubaGnIR8hKRR6 ODggKENMSUEtODgpIGFzIH P5NYimGrhrTMQ8dvKdNEVj i1AnKHyxB7gmQ31wlGhjrB j8xWTxoJdrsCBczWRmAXIh iwK4j8D9KTIyj9ApywjvTH BsYWluXGYyXGZzMjJcbGFu ZzEwMzNcaGljaFxmMlxkYm HzRMOvWDagZ7xgQjRqNyEh RuacUCN2hO== Gross assessment was [facility] performed at ([facility], = 2777) Department of Pathology, [address] [place] [address], Technical component was [facility] performed at ([facility], = 2778) Department of Pathology, [address] [place] [address], Professional component [facility] was performed at ([facility], code = 2779) Department of Pathology, [address] [place] [address], [facility] 19:59:05Medical Cytology Report Case: [id number] Authorizing Provider: Addis Pulliam MD Collected: 10/21/2022 08:51 AM Ordering Location: [place] [address] CCU Received: 10/21/2022 09:06 AM Pathologist: Apurva Xiong MD Specimen: Pericardial PERICARDIAL FLUID (CYTOSPINS AND CELL BLOCK): -NEGATIVE FOR MALIGNANCY (SEE COMMENT) Signing Pathologist Direct Phone Line: [phone] signed by Apurva iXong MD on 10/23/2022 at 7:59 PMThe specimen is composed of benign and reactive appearing mesothelial cells admixed with small lymphocytes. MOC-31 was performed, with appropriate control, and no staining is identified. 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 PERICARDIAL FLUIDA. PericardialReceived 600 ml quique fluid; prepared 4cytospins and cell block(A2)- the cell block was fixed in formalin at 13:23 on 3Performed. SatisfactoryThe interpretation of this case included the use of immunohistochemistry or special stains.Control Slides Examined: In-house known positive controls were evaluated along with the test tissue.These control slides run alongside of the patients sample show appropriate staining. Internal positive and negative controls when available are evaluated Immunohistochemistry technical testing was performed at [facility], Pathology Laboratory where it was developed and its performance characteristics were determined. It has not been cleared or approved by the U.S. Food and Drug Administration. The FDA has determined that such clearance or approval is not necessary. The test is used for clinical purposes. It should not be regarded as investigational or for research. This laboratory is certified under the Clinical Laboratory Improvement Amendments of 1988 (CLIA- 88) as qualifiedto perform high complexity clinical laboratory testing.[facility], Department of Pathology, [address] [place] [address], [facility], [address] [place] [address], [facility], [facility] of [facility], [address] [place] [address], KHJT-GLUCOSE [id number] 12:03:05 Test Item Value Reference Range Interpretation Comments POC-GLUCOSE METER 127 mg/dL 70-110 H : TESTED A T [facility] (BEAKER) (test code = DAVINA Sommers [place], 1538) [address]: Terrazzo Journeyman/Techni catarino ID = [id number] for Felicia Wilkins LUPUS ANTICOAGULANT SCREEN WITH REFLEX TO [id number] 10:57:53 Test Item Value Reference Range Interpretation Comments DRVV SCREEN RATIO 1.22 <1.20 H (BEAKER) (test code = 2707) DRVV CONFIRM RATIO 1.01 (test code = 2709) DRVV NORMALIZED RATIO 1.21 <1.20 H (test code = 2710) DRVV INTERPRETATION Prolonged lupus (BEAKER) (test code = sensitive PTT (PTT-La) 2406) DRVV INTERPRETATION Positive screen for (BEAKER) (test code = Lupus Anticoagulant 051417) with hexagonal phospholipid confirmation. Suggest repeat testing in 12 weeks and when patient not receiving anticoagulant therapy. PROTIME (BEAKER) (test 14.3 seconds 11.9-14.2 H code = 759) INR (BEAKER) (test code 1.18 <=5.90 = 370) PARTIAL THROMBOPLASTIN 26.5 seconds 22.5-36.0 TIME (BEAKER) (test code = 760) PTT-LA (BEAKER) (test 45.2 32.0-41.8 H code = 1308770730) [id number] Yael Brandon M.D (BEAKER) (test code = (electronic signature) 2610) Glucose, Pericardial [id number] 10:30:24 Test Item Value Reference Range Interpretation Comments GLUCOSE, PERICARDIAL FLUID see scanned report see scan (test code = 37039-6) THEO (test code = THEO) see scanned report [facility] CenterHEXAGONAL [id number] 08:30:06 Test Item Value Reference Range Interpretation Comments HEXAGONAL PHOSPHOLIPID (BEAKER) Positive (test code = 1790) POCT-GLUCOSE [id number] 07:54:48 Test Item Value Reference Range Interpretation Comments POC-GLUCOSE METER 121 mg/dL 70-110 H : TESTED A T [facility] (BEAKER) (test code = DAVINA Sommers [place], 1538) [address]: Terrazzo Journeyman/Techni catarino ID = [id number] for BE RNABE, ALBERTA T4, [id number] 04:30:37 Test Item Value Reference Range Interpretation Comments FREE T4 (BEAKER) (test code = 655) 0.61 ng/dL 0.70-1.48 L [employer] Journeyman ID - MMBASIC METABOLIC [id number] 04:12:27 Test Item Value Reference Range Interpretation Comments SODIUM (BEAKER) 133 meq/L 136-145 L (test code = 381) POTASSIUM 4.0 meq/L 3.5-5.1 (BEAKER) (test code = 379) CHLORIDE (BEAKER) 100 meq/L 98-107 (test code = 382) CO2 (BEAKER) 22 meq/L 22-29 (test code = 355) BLOOD UREA 21 mg/dL 7-21 NITROGEN (BEAKER) (test code = 354) CREATININE 1.18 mg/dL 0.57-1.25 (BEAKER) (test code = 358) GLUCOSE RANDOM 108 mg/dL 70-105 H (BEAKER) (test code = 652) CALCIUM (BEAKER) 9.1 mg/dL 8.4-10.2 (test code = 697) EGFR (BEAKER) 53 Interpretatio n of eGFR (test code = mL/min/1.73 values Stage De scription 1092) sq m Result G1 Sera l or high >=90 G2 Mildly decreased 60-89 G3a Mildl y to moderately 45-5 9 G3b Moderately to s everely 30-44 G4 Severl y decreased 15-29 G5 Kidney failure <15Reported eGF R is based on the CKD-EPI 2020 equation that d oes not use a race coefficientEsti mated GFR is not as accur ate as Creatinine Brenda sun in predicting glom erular filtration rate . Estimated GFR is not appl icable for dialysis patien ts Terrazzo Journeyman ID - [id number] 04:12:27 Test Item Value Reference Range Interpretation Comments MAGNESIUM (BEAKER) (test code = 2.3 mg/dL 1.6-2.6 627) Terrazzo Journeyman ID - MMCBC W/PLT COUNT & AUTO [id number] 03:51:40 Test Item Value Reference Range Interpretation Comments WHITE BLOOD CELL COUNT (BEAKER) 7.1 K/ L 3.5-10.5 (test code = 775) RED BLOOD CELL COUNT (BEAKER) 3.31 M/ L 3.93-5.22 L (test code = 761) HEMOGLOBIN (BEAKER) (test code = 10.3 GM/DL 11.2-15.7 L 410) HEMATOCRIT (BEAKER) (test code = 31.1 % 34.1-44.9 L 411) MEAN CORPUSCULAR VOLUME (BEAKER) 94 fL 79-95 (test code = 753) MEAN CORPUSCULAR HEMOGLOBIN 31.1 pg 25.6-32.2 (BEAKER) (test code = 751) MEAN CORPUSCULAR HEMOGLOBIN CONC 33.1 GM/DL 32.2-35.5 (BEAKER) (test code = 752) RED CELL DISTRIBUTION WIDTH 14.9 % 11.7-14.4 H (BEAKER) (test code = 412) PLATELET COUNT (BEAKER) (test 137 K/CU MM 150-450 L code = 756) MEAN PLATELET VOLUME (BEAKER) 9.5 fL 9.4-12.3 (test code = 754) NUCLEATED RED BLOOD CELLS 0 /100 WBC 0-0 (BEAKER) (test code = 413) NEUTROPHILS RELATIVE PERCENT 53 % (BEAKER) (test code = 429) LYMPHOCYTES RELATIVE PERCENT 33 % (BEAKER) (test code = 430) MONOCYTES RELATIVE PERCENT 10 % (BEAKER) (test code = 431) EOSINOPHILS RELATIVE PERCENT 0 % (BEAKER) (test code = 432) BASOPHILS RELATIVE PERCENT 0 % (BEAKER) (test code = 437) NEUTROPHILS ABSOLUTE COUNT 3.73 K/ L 1.56-6.13 (BEAKER) (test code = 670) LYMPHOCYTES ABSOLUTE COUNT 2.33 K/ L 1.18-3.74 (BEAKER) (test code = 414) MONOCYTES ABSOLUTE COUNT (BEAKER) 0.69 K/ L 0.24-0.36 H (test code = 415) EOSINOPHILS ABSOLUTE COUNT 0.00 K/ L 0.04-0.36 L (BEAKER) (test code = 416) BASOPHILS ABSOLUTE COUNT (BEAKER) 0.03 K/ L 0.01-0.08 (test code = 417) IMMATURE GRANULOCYTES-RELATIVE 4.40 % 0.00-1.00 H PERCENT (BEAKER) (test code = 2801) POCT-GLUCOSE [id number] 21:49:17 Test Item Value Reference Range Interpretation Comments POC-GLUCOSE METER 120 mg/dL 70-110 H : TESTED A T [facility] 6720 (BEAKER) (test code = [facility], 153) [address]: Terrazzo Journeyman/Techni catarino ID = [id number] for Carolina Bauer POCT-GLUCOSE [id number] 16:16:09 Test Item Value Reference Range Interpretation Comments POC-GLUCOSE METER 137 mg/dL 70-110 H : TESTED A T [facility] 6720 (BEAKER) (test code = [facility], 153) [address]: Terrazzo Journeyman/Techni catarino ID = [id number] for BE LL, BEAULA Body Fluid Culture + Gram [id number] 15:24:43 Test Item Value Reference Range Interpretation Comments Result (test code = 6463-4) No growth Gram Stain Result (test No organisms seen code = 1123) [facility] CenterBODY FLUID CULT[facility] + GRAM [id number] 15:24:43 Test Item Value Reference Range Interpretation Comments CULTURE (BEAKER) (test code No growth = 1095) GRAM STAIN RESULT (BEAKER) <1+ WBCs (test code = 1123) GRAM STAIN RESULT (BEAKER) No organisms seen (test code = 35369) DOUBLE-STRANDED DNA (DSDNA) [id number] 13:54:16 Test Item Value Reference Range Interpretation Comments ANTI-DNA DS (BEAKER) (test code = Negative Negative 1055) POCT-GLUCOSE [id number] 11:16:38 Test Item Value Reference Range Interpretation Comments POC-GLUCOSE METER 107 mg/dL 70-110 : TESTED A T [facility] 6720 (BEAKER) (test code = [facility], 153) [address]: Terrazzo Journeyman/Techni catarino ID = [id number] for Enmanuel tasneemFelicia quintero POCT-GLUCOSE [id number] 08:02:31 Test Item Value Reference Range Interpretation Comments POC-GLUCOSE METER 105 mg/dL 70-110 : TESTED A T [facility] 6720 (BEAKER) (test code = [facility], 153) [address]: Terrazzo Journeyman/Techni catarino ID = [id number] for ALEX MCDONOUGH [id number] 05:53:28 Test Item Value Reference Range Interpretation Comments MAGNESIUM (BEAKER) (test code = 2.3 mg/dL 1.6-2.6 627) Terrazzo Journeyman ID - ADMINBASIC METABOLIC [id number] 05:53:27 Test Item Value Reference Range Interpretation Comments SODIUM (BEAKER) 133 meq/L 136-145 L (test code = 381) POTASSIUM 4.2 meq/L 3.5-5.1 (BEAKER) (test code = 379) CHLORIDE (BEAKER) 101 meq/L 98-107 (test code = 382) CO2 (BEAKER) 21 meq/L 22-29 L (test code = 355) BLOOD UREA 26 mg/dL 7-21 H NITROGEN (BEAKER) (test code = 354) CREATININE 1.27 mg/dL 0.57-1.25 H (BEAKER) (test code = 358) GLUCOSE RANDOM 99 mg/dL 70-105 (BEAKER) (test code = 652) CALCIUM (BEAKER) 8.8 mg/dL 8.4-10.2 (test code = 697) EGFR (BEAKER) 48 Interpretatio n of eGFR (test code = mL/min/1.73 values Stage De scription 1092) sq m Result G1 Sera l or high >=90 G2 Mildly decreased 60-89 G3a Mildl y to moderately 45-5 9 G3b Moderately to s everely 30-44 G4 Severl y decreased 15-29 G5 Kidney failure <15Reported eGF R is based on the CKD-EPI 2020 equation that d oes not use a race coefficientEsti mated GFR is not as accur ate as Creatinine Brenda sun in predicting glom erular filtration rate . Estimated GFR is not appl icable for dialysis patien ts Terrazzo Journeyman ID - ADMINT4, [id number] 05:15:58 Test Item Value Reference Range Interpretation Comments FREE T4 (BEAKER) (test code = 655) 0.51 ng/dL 0.70-1.48 L [employer] Journeyman ID - ADMINCBC W/PLT COUNT & AUTO [id number] 03:25:40 Test Item Value Reference Range Interpretation Comments WHITE BLOOD CELL COUNT (BEAKER) 6.8 K/ L 3.5-10.5 (test code = 775) RED BLOOD CELL COUNT (BEAKER) 3.53 M/ L 3.93-5.22 L (test code = 761) HEMOGLOBIN (BEAKER) (test code = 10.9 GM/DL 11.2-15.7 L 410) HEMATOCRIT (BEAKER) (test code = 33.7 % 34.1-44.9 L 411) MEAN CORPUSCULAR VOLUME (BEAKER) 96 fL 79-95 H (test code = 753) MEAN CORPUSCULAR HEMOGLOBIN 30.9 pg 25.6-32.2 (BEAKER) (test code = 751) MEAN CORPUSCULAR HEMOGLOBIN CONC 32.3 GM/DL 32.2-35.5 (BEAKER) (test code = 752) RED CELL DISTRIBUTION WIDTH 15.0 % 11.7-14.4 H (BEAKER) (test code = 412) PLATELET COUNT (BEAKER) (test 107 K/CU MM 150-450 L code = 756) MEAN PLATELET VOLUME (BEAKER) 10.2 fL 9.4-12.3 (test code = 754) NUCLEATED RED BLOOD CELLS 0 /100 WBC 0-0 (BEAKER) (test code = 413) NEUTROPHILS RELATIVE PERCENT 57 % (BEAKER) (test code = 429) LYMPHOCYTES RELATIVE PERCENT 32 % (BEAKER) (test code = 430) MONOCYTES RELATIVE PERCENT 9 % (BEAKER) (test code = 431) EOSINOPHILS RELATIVE PERCENT 0 % (BEAKER) (test code = 432) BASOPHILS RELATIVE PERCENT 0 % (BEAKER) (test code = 437) NEUTROPHILS ABSOLUTE COUNT 3.90 K/ L 1.56-6.13 (BEAKER) (test code = 670) LYMPHOCYTES ABSOLUTE COUNT 2.18 K/ L 1.18-3.74 (BEAKER) (test code = 414) MONOCYTES ABSOLUTE COUNT (BEAKER) 0.58 K/ L 0.24-0.36 H (test code = 415) EOSINOPHILS ABSOLUTE COUNT 0.00 K/ L 0.04-0.36 L (BEAKER) (test code = 416) BASOPHILS ABSOLUTE COUNT (BEAKER) 0.03 K/ L 0.01-0.08 (test code = 417) IMMATURE GRANULOCYTES-RELATIVE 1.80 % 0.00-1.00 H PERCENT (BEAKER) (test code = 2801) POCT-GLUCOSE [id number] 23:01:19 Test Item Value Reference Range Interpretation Comments POC-GLUCOSE METER 113 mg/dL 70-110 H : TESTED A T [facility] 6720 (BEAKER) (test code = DAVINA Sommers [place], 1538) [address]: Terrazzo Journeyman/Techni catarino ID = [id number] for ADAL ROBERTO POCT-GLUCOSE [id number] 16:35:05 Test Item Value Reference Range Interpretation Comments POC-GLUCOSE METER 116 mg/dL 70-110 H : TESTED A T [facility] 6720 (BEAKER) (test code = DAVINA Sommers [facility], 1538) [address]: Terrazzo Journeyman/Techni catarino ID = [id number] for ALEX MCDONOUGH Creatinine, random [id number] 14:27:55 Test Item Value Reference Range Interpretation Comments Creatinine, Ur 173.5 mg/dL (test code = 2161-8) THEO (test code = Reference Range: No THEO) NormalsOperator ID - ADMIN [facility] CenterProtein, random [id number] 14:27:55 Test Item Value Reference Range Interpretation Comments Protein, Urine (test code 68 mg/dL 0-14 H = 2888-6) THEO (test code = THEO) Terrazzo Journeyman ID - ADMIN Lab Interpretation (test Abnormal code = 24127-3) [facility] CenterCREATININE, RANDOM [id number] 14:27:55 Test Item Value Reference Range Interpretation Comments CREATININE URINE (BEAKER) (test 173.5 mg/dL code = 375) Reference Range: No NormalsOperator ID - ADMINPROTEIN, RANDOM [id number] 14:27:55 Test Item Value Reference Range Interpretation Comments PROTEIN, URINE (BEAKER) (test code = 68 mg/dL 0-14 H 1569) Terrazzo Journeyman ID - ADMINCARDIOLIPIN ANTIBODIES, IGG AND [id number] 13:53:30 Test Item Value Reference Range Interpretation Comments ANTICARDIOLIPIN IGG ANTIBODY (BEAKER) < GPL <20.0 (test code = 712) ANTICARDIOLIPIN IGM ANTIBODY (BEAKER) < MPL <20.0 (test code = 713) Anticardiolipin IgG Result Interpretation: <20.0 GPL Normal>/= 20.0 GPL PositiveAnticardiolipin IgM Result Interpretation: <20.0 MPL Normal>/= 20.0 MPL PositiveXR CHEST 1 VIEW PORTABLE / [id number] 12:34:50 [facility] : 1960 Sex: FXR CHEST1 VIEW PORTABLE / BEDSIDEINDICATION: post pericardial drainCOMPARISON: Prior day's examTECHNIQUE: Portable frontal view(s) of the chest. FINDINGS: Support Lines and Devices: The left-sided chest tube was removed. Lungs and pleura: Unchanged airspace and pleural opacities. Nopneumothorax identified.Heart and mediastinum: Stable contours. Stable surgical changes.Additional findings: None.IMPRESSION:1. The left-sided chest tube was removed. No pneumothorax identified.2. Left retrocardiac opacity, representing singly or in combinationpneumonia, atelectasis, or pleural effusion.Electronically Signed By: Carson Henao10/21/2022 12:36 CDTWorkstation Name: [id number] ANTIBODY (TEDDY)2022-10-21 12:09:27 Test Item Value Reference Range Interpretation Comments ANTI-NUCLEAR ANTIBODY (TEDDY) (MARTHAAKER) Negative Negative (test code = 418) Test performed by IFA method.Test performed by IFA method.POCT-GLUCOSE METER 2022-10-21 11:32:37 Test Item Value Reference Range Interpretation Comments POC-GLUCOSE METER 154 mg/dL 70-110 H : TESTED A T [facility] (BEAKER) (test code = [place], 1538) [address]: Terrazzo Journeyman/Techni catarino ID = [id number] for ALEX MCDONOUGH [id number] 04:02:02 Test Item Value Reference Range Interpretation Comments MAGNESIUM (BEAKER) (test code = 2.1 mg/dL 1.6-2.6 627) Terrazzo Journeyman ID - ELISABET WBASIC METABOLIC [id number] 04:02:01 Test Item Value Reference Range Interpretation Comments SODIUM (BEAKER) 133 meq/L 136-145 L (test code = 381) POTASSIUM 4.3 meq/L 3.5-5.1 (BEAKER) (test code = 379) CHLORIDE (BEAKER) 101 meq/L 98-107 (test code = 382) CO2 (BEAKER) 21 meq/L 22-29 L (test code = 355) BLOOD UREA 22 mg/dL 7-21 H NITROGEN (BEAKER) (test code = 354) CREATININE 1.41 mg/dL 0.57-1.25 H (BEAKER) (test code = 358) GLUCOSE RANDOM 137 mg/dL 70-105 H (BEAKER) (test code = 652) CALCIUM (BEAKER) 8.7 mg/dL 8.4-10.2 (test code = 697) EGFR (BEAKER) 42 Interpretatio n of eGFR (test code = mL/min/1.73 values Stage De scription 1092) sq m Result G1 Sera l or high >=90 G2 Mildly decreased 60-89 G3a Mildl y to moderately 45-5 9 G3b Moderately to s everely 30-44 G4 Severl y decreased 15-29 G5 Kidney failure <15Reported eGF R is based on the CKD-EPI 2020 equation that d oes not use a race coefficientEsti mated GFR is not as accur ate as Creatinine Brenda corinne in predicting glom erular filtration rate . Estimated GFR is not appl icable for dialysis patien ts Terrazzo Journeyman ID - ELISABET WCBC W/PLT COUNT & AUTO [id number] 03:33:03 Test Item Value Reference Range Interpretation Comments WHITE BLOOD CELL COUNT (BEAKER) 9.0 K/ L 3.5-10.5 (test code = 775) RED BLOOD CELL COUNT (BEAKER) 3.40 M/ L 3.93-5.22 L (test code = 761) HEMOGLOBIN (BEAKER) (test code = 10.4 GM/DL 11.2-15.7 L 410) HEMATOCRIT (BEAKER) (test code = 32.3 % 34.1-44.9 L 411) MEAN CORPUSCULAR VOLUME (BEAKER) 95 fL 79-95 (test code = 753) MEAN CORPUSCULAR HEMOGLOBIN 30.6 pg 25.6-32.2 (BEAKER) (test code = 751) MEAN CORPUSCULAR HEMOGLOBIN CONC 32.2 GM/DL 32.2-35.5 (BEAKER) (test code = 752) RED CELL DISTRIBUTION WIDTH 14.8 % 11.7-14.4 H (BEAKER) (test code = 412) PLATELET COUNT (BEAKER) (test 111 K/CU MM 150-450 L code = 756) MEAN PLATELET VOLUME (BEAKER) 9.7 fL 9.4-12.3 (test code = 754) NUCLEATED RED BLOOD CELLS 0 /100 WBC 0-0 (BEAKER) (test code = 413) NEUTROPHILS RELATIVE PERCENT 76 % (BEAKER) (test code = 429) LYMPHOCYTES RELATIVE PERCENT 14 % (BEAKER) (test code = 430) MONOCYTES RELATIVE PERCENT 8 % (BEAKER) (test code = 431) EOSINOPHILS RELATIVE PERCENT 0 % (BEAKER) (test code = 432) BASOPHILS RELATIVE PERCENT 0 % (BEAKER) (test code = 437) NEUTROPHILS ABSOLUTE COUNT 6.83 K/ L 1.56-6.13 H (BEAKER) (test code = 670) LYMPHOCYTES ABSOLUTE COUNT 1.29 K/ L 1.18-3.74 (BEAKER) (test code = 414) MONOCYTES ABSOLUTE COUNT (BEAKER) 0.73 K/ L 0.24-0.36 H (test code = 415) EOSINOPHILS ABSOLUTE COUNT 0.00 K/ L 0.04-0.36 L (BEAKER) (test code = 416) BASOPHILS ABSOLUTE COUNT (BEAKER) 0.03 K/ L 0.01-0.08 (test code = 417) IMMATURE GRANULOCYTES-RELATIVE 1.40 % 0.00-1.00 H PERCENT (BEAKER) (test code = 2801) POCT-GLUCOSE [id number] 21:39:30 Test Item Value Reference Range Interpretation Comments POC-GLUCOSE METER 123 mg/dL 70-110 H : TESTED A T [facility] 6720 (BEAKER) (test code = [place], 1538) [address]: Terrazzo Journeyman/Techni catarino ID = [id number] for ADAL ROBERTO POCT-GLUCOSE [id number] 16:32:24 Test Item Value Reference Range Interpretation Comments POC-GLUCOSE METER 121 mg/dL 70-110 H : TESTED A T [facility] 6720 (BEAKER) (test code = [place], 1538) [address]: Terrazzo Journeyman/Techni catarino ID = [id number] for Re alexa, Marivel T4, [id number] 16:24:51 Test Item Value Reference Range Interpretation Comments FREE T4 (BEAKER) (test code = 655) < ng/dL 0.70-1.48 L Terrazzo Journeyman ID - MMHEPATITIS B [id number] 16:24:39 Test Item Value Reference Range Interpretation Comments HEPATITIS B CORE TOTAL ANTIBODY Nonreactive Nonreactive (BEAKER) (test code = 497) HEPATITIS B SURFACE ANTIBODY < mIU/mL <8.0 (BEAKER) (test code = 647) HEPATITIS B SURFACE ANTIGEN (2) Nonreactive Nonreactive (BEAKER) (test code = 2585) Terrazzo Journeyman ID - MMHEPATITIS C [id number] 16:22:27 Test Item Value Reference Range Interpretation Comments HEPATITIS C ANTIBODY (BEAKER) Nonreactive Nonreactive (test code = 367) Terrazzo Journeyman ID - MMCOMPLEMENT COMPONENT [id number] 15:54:24 Test Item Value Reference Range Interpretation Comments C3 COMPLEMENT (BEAKER) (test code = 156 mg/dL 82-193 393) Terrazzo Journeyman ID - [id number] 15:54:24 Test Item Value Reference Range Interpretation Comments HAPTOGLOBIN (BEAKER) (test code = 219 mg/dL 14-258 366) Terrazzo Journeyman ID - MMCOMPLEMENT COMPONENT [id number] 15:54:18 Test Item Value Reference Range Interpretation Comments C4 COMPLEMENT (BEAKER) (test code = 37 mg/dL 15-57 394) Terrazzo Journeyman ID - MMBody fluid cell count with [id number] 15:00:59 Test Item Value Reference Range Interpretation Comments Appearance (test code = Cloudy Clear A 9335-1) Color (test code = Red Colorless, Straw A 6824-7) RBCs (test code = 44064 See_Comment H [Automate d message] 51112-9) The system DrDoctor generated this result transmit yue reference range : <=1 /cu mm. The reference range was not used to interpret this result as normal/abnormal . TNC Count (test code = 119 See_Comment H [Aut omated message] 1442) The system whic h generated this result transmit yue reference range : <=5 /cu mm. The reference range was not used to interpret this result as normal/abnormal . Lining Cells/Other 0 Diff'd (test code = 1589) Adjusted WBC Count 119 See_Comment H [Automat ed message] (test code = 14458-7) The sy stem which generated this result transmit yue reference range : <=5 /cu mm. The reference range was not used to interpret this result as normal/abnormal . Adjusted lining 0 See_Comment [Automated message] cells/Others (test code The system which = 91369-9) generated this result transmit yue reference range : <=1 /cu mm. The reference range was not used to interpret this result as normal/abnormal . % Segs (test code = 34 % 15185-7) % Lymphs (test code = 51 % 15945-3) % Monos (test code = 15 % 65789-2) % Eos (test code = 0 % 45423-3) % Baso (test code = 0 % 06952-9) Container Body Fluid EDTA Tube (test code = 2873) Lab Interpretation Abnormal (test code = 42381-5) [facility] CenterB[facility] WITH [id number] 15:00:59 Test Item Value Reference Range Interpretation Comments APPEARANCE FLUID (BEAKER) (test Cloudy Clear A code = 510) COLOR FLUID (BEAKER) (test code Red Colorless, Straw A = 511) RBC FLUID (BEAKER) (test code = 42566 /cu mm <=1 H 513) TOTAL NUCLEATED CELL COUNT 119 /cu mm <=5 H (BEAKER) (test code = 1442) LINING CELLS/OTHERS DIFF'D 0 (BEAKER) (test code = 1589) ADJUSTED WBC FLUID (BEAKER) 119 /cu mm <=5 H (test code = 1691) LINING CELLS/OTHERS, CALCULATED 0 /cu mm <=1 (BEAKER) (test code = 1590) NEUTROPHILS FLUID (BEAKER) 34 % (test code = 1656) LYMPHS FLUID (BEAKER) (test 51 % code = 488) MONO/MACROPHAGE FLUID (BEAKER) 15 % (test code = 489) EOSINOPHILS FLUID (BEAKER) 0 % (test code = 491) BASO FLUID (BEAKER) (test code 0 % = 492) CONTAINER BODY FLUID (BEAKER) EDTA Tube (test code = 2873) POCT-GLUCOSE [id number] 13:36:27 Test Item Value Reference Range Interpretation Comments POC-GLUCOSE METER 136 mg/dL 70-110 H : TESTED A T [facility] (ELYSSA) (test code = [place], 1538) [address]: Terrazzo Journeyman/Techni catarino ID = [id number] for SREEDHAR BANG HEMOGLOBIN [id number] 13:07:16 Test Item Value Reference Range Interpretation Comments HEMOGLOBIN A1C 5.7 % See_Comment H [Automated m essage] ELECTROPHORESIS (ELYSSA) The system which (test code = 3811) generated this result transmitted ref erence range: <=5.6%. The reference range was not used to int erpret this result as normal/abnormal . "The A1c is measured using a NGSP-certified method. HbA1c value equal to or greater than 6.5% as thediagnosis cutoff for diabetes. An HbA1c value of 5.7- 6.4% indicates increased risk for diabetes (prediabetes)."Terrazzo Journeyman ID - ADMOperator ID - ADMRHEUMATOID FACTOR AB, REFLEX TO [id number] 13:01:38 Test Item Value Reference Range Interpretation Comments RHEUMATOID FACTOR (ELYSSA) (test Negative Negative code = 573) XR CHEST 1 VIEW PORTABLE / [id number] 12:03:02 [facility] : 1960 Sex: FINDICATION: baseline cxrCOMPARISON: NoneTECHNIQUE: Single frontal view of the chest.FINDINGS: Lines, tubes, and devices: None.Lungs and pleura: Left retrocardiac opacity, representing singly or incombination pneumonia, atelectasis, or pleural effusion. Nopneumothorax.Heart and mediastinum: Moderate cardiomegaly is present. Unremarkablemediastinal contours.Osseous structures: No acute abnormality. Mild spondylosis and facetarthropathy are present within the spine.Other: None.IMPRESSION:1. Left retrocardiac opacity, suggesting atelectasis.2. Moderate cardiomegaly is present.TSH/FREE T4 IF INDICATED 2022-10-20 12:01:27 Test Item Value Reference Range Interpretation Comments THYROID STIMULATING HORMONE 26.800 uIU/mL 0.350-4.940 H (BEAKER) (test code = 772) [employer] ID - HOME BUrinalysis w/Microscopic + Reflex to [id number] 11:47:58 Test Item Value Reference Range Interpretation Comments Color, UA (test code Yellow = 5778-6) Clarity, UA (test Clear code = 5767-9) Specific [place], UA 1.001-1.035 H (test code = 5811-5) pH, UA (test code = 6.5 5.0-8.0 5803-2) Protein, UA (test 50 mg/dL Negative A code = 60442-4) Glucose, UA (test Negative Negative code = 365) Ketones, UA (test Negative Negative code = 2514-8) Bilirubin, UA (test Negative Negative code = 65439-1) Blood, UA (test code Small Negative A = 04589-0) Nitrite, UA (test Negative Negative code = 5802-4) Leukocytes, UA (test Negative Negative code = 5799-2) Urobilinogen, UA 0.2 0.2-1.0 (test code = 81608-6) RBC, UA (test code = 5 See_Comment [Autom ated 64238-2) message] The system which generated this result transmit yue reference range : /HPF. The reference range was not used to interpret this result as normal/abnormal . WBC, UA (test code = 1 See_Comment [Autom ated 5821-4) message] The system which generated this result transmit yue reference range : /HPF. The reference range was not used to interpret this result as normal/abnormal . Bacteria, UA (test Rare code = 87682-1) Squam Epithel, UA 10 See_Comment [Automate d (test code = 62435-3) messag e] The system which generated this result transmit yue reference range : /HPF. The reference range was not used to interpret this result as normal/abnormal . Specimen Source (test code = 2795) THEO (test code = THEO) [employer] ID - tech Lab Interpretation Abnormal (test code = 66782-0) [facility] [id number] 11:47:58 Test Item Value Reference Range Interpretation Comments COLOR (BEAKER) (test code = 470) Yellow CLARITY (BEAKER) (test code = 469) Clear SPECIFIC GRAVITY UA (BEAKER) (test > 1.001-1.035 H code = 468) PH UA (BEAKER) (test code = 467) 6.5 5.0-8.0 PROTEIN UA (BEAKER) (test code = 50 mg/dL Negative A 464) GLUCOSE UA (BEAKER) (test code = Negative Negative 365) KETONES UA (BEAKER) (test code = Negative Negative 371) BILIRUBIN UA (BEAKER) (test code = Negative Negative 462) BLOOD UA (BEAKER) (test code = 461) Small Negative A NITRITE UA (BEAKER) (test code = Negative Negative 465) LEUKOCYTE ESTERASE UA (BEAKER) (test Negative Negative code = 466) UROBILINOGEN UA (BEAKER) (test code 0.2 0.2-1.0 = 463) RBC UA (BEAKER) (test code = 519) 5 /HPF WBC UA (BEAKER) (test code = 520) 1 /HPF BACTERIA (BEAKER) (test code = 517) Rare SQUAMOUS EPITHELIAL (BEAKER) (test 10 /HPF code = 516) SOURCE(BEAKER) (test code = 2795) [employer] ID - [id number] 11:17:37 Test Item Value Reference Range Interpretation Comments FERRITIN (BEAKER) (test code = 195.02 ng/mL 5.00-275.00 361) [employer] ID - HOME BVITAMIN [id number] 11:17:36 Test Item Value Reference Range Interpretation Comments VITAMIN B12 (BEAKER) (test code = 304 pg/mL 213-816 774) [employer] ID - HOME BC-REACTIVE [id number] 10:51:17 Test Item Value Reference Range Interpretation Comments C-REACTIVE PROTEIN (BEAKER) (test 9.78 mg/dL 0.00-0.50 H code = 676) [employer] ID - HOME BIRON, TIBC, % SAT. (WITHOUT FERRITIN)2022-10-20 10:49:12 Test Item Value Reference Range Interpretation Comments IRON (BEAKER) (test code = 547) 140.0 ug/dL 40.0-160.0 TOTAL IRON BINDING CAPACITY 385 ug/dL 250-450 (BEAKER) (test code = 769) IRON % SATURATION (2) (BEAKER) 36 % 20-55 (test code = 2590) [employer] ID - HOME BLACTIC ACID, [id number] 10:46:29 Test Item Value Reference Range Interpretation Comments LACTATE BLOOD VENOUS 1.04 mmol/L 0.50-2.00 Specime n slightly (2) (BEAKER) (test hemolyzed code = 2872) [employer] ID - HOME BRespiratory Panel [id number] 09:39:38 Test Item Value Reference Range Interpretation Comments Human Metapneumovirus Not detected Not detected, (test code = 42568-1) Equivocal Rhinovirus (test code = Not detected Not detected, 26885-7) Equivocal INFLUENZA A (NO Not detected Not detected, SUBTYPE) (test code = Equivocal 50983-4) Influenza A subtype H1 (test code = 50081-7) Influenza A Subtype H3 (test code = 81253-5) Influenza A Subtype H1-2009 (test code = 53899-0) Influenza B (test code Not detected Not detected, = 39943-6) Equivocal Respiratory Syncytial Not detected Not detected, Virus (test code = Equivocal 15823-7) Parainfluenza Virus 1 Not detected Not detected, (test code = 63945-4) Equivocal Parainfluenza Virus 2 Not detected Not detected, (test code = 63432-1) Equivocal Parainfluenza virus 3 Not detected Not detected, (test code = 79180-5) Equivocal Parainfluenza Virus 4 Not detected Not detected, (test code = 06752-5) Equivocal Adenovirus (test code = Not detected Not detected, 21022-5) Equivocal Coronavirus 229E (test Not detected Not detected, code = 53818-7) Equivocal Coronavirus HKU1 (test Not detected Not detected, code = 45513-7) Equivocal Coronavirus NL63 (test Not detected Not detected, code = 09178-0) Equivocal Coronavirus OC43 (test Not detected Not detected, code = 89051-4) Equivocal Bordetella Pertussis Not detected Not detected, (test code = 76758-3) Equivocal Chlamydophila Not detected Not detected, Pneumoniae (test code = Equivocal 70796-9) Mycoplasma Pneumoniae Not detected Not detected, (test code = 70205-8) Equivocal Severe Acute Not detected Not detected, Nsdhjxgmhtw-WzS-4 (test Equivocal code = 83786-4) Bordtella Parapertussis Not detected Not detected, (test code = 88739-4) Equivocal THEO (test code = THEO) Other viruses and bacteria not targeted by this PCR panel cannot be excluded; therefore clinical correlation and follow up of serology, culture results, and other molecular studies is required. The results are not intended to be used as the sole means for clinical diagnosis or patient management decisions. This sample was tested at the [facility] using the BoracciArray Respiratory Panel. It is FDA cleared and has been verified and approved by the [facility] for clinical use on nasopharyngeal swab specimens. The performance of the FilmArray RP has not been established in individuals who received influenza vaccine. Recent administration of a nasal influenza vaccine may cause false positive results for Influenza A and/orInfluenza B. [facility] [id number] 09:39:38 Test Item Value Reference Range Interpretation Comments HUMAN METAPNEUMOVIRUS Not detected Not detected, (BEAKER) (test code = 2683) Equivocal RHINOVIRUS (BEAKER) (test Not detected Not detected, code = 2684) Equivocal INFLUENZA A (BEAKER) (test Not detected Not detected, code = 2685) Equivocal INFLUENZA A (NO SUBTYPE) (test code = 3606) INFLUENZA A SUBTYPE H1 (BEAKER) (test code = 2686) INFLUENZA A SUBTYPE H3 (BEAKER) (test code = 2687) INFLUENZA A SUBTYPE H1-2009 (BEAKER) (test code = 3198) INFLUENZA B (BEAKER) (test Not detected Not detected, code = 2688) Equivocal RESPIRATORY SYNCYTIAL VIRUS Not detected Not detected, (BEAKER) (test code = 3199) Equivocal PARAINFLUENZA VIRUS 1 Not detected Not detected, (BEAKER) (test code = 2691) Equivocal PARAINFLUENZA VIRUS 2 Not detected Not detected, (BEAKER) (test code = 2692) Equivocal PARAINFLUENZA VIRUS 3 Not detected Not detected, (BEAKER) (test code = 2693) Equivocal PARAINFLUENZA VIRUS 4 Not detected Not detected, (BEAKER) (test code = 3200) Equivocal ADENOVIRUS (BEAKER) (test Not detected Not detected, code = 2694) Equivocal CORONAVIRUS 229E (BEAKER) Not detected Not detected, (test code = 3201) Equivocal CORONAVIRUS HKU1 (BEAKER) Not detected Not detected, (test code = 3202) Equivocal CORONAVIRUS NL63 (BEAKER) Not detected Not detected, (test code = 3203) Equivocal CORONAVIRUS OC43 (BEAKER) Not detected Not detected, (test code = 3204) Equivocal BORDETELLA PERTUSSIS Not detected Not detected, (BEAKER) (test code = 3205) Equivocal CHLAMYDOPHILA PNEUMONIAE Not detected Not detected, (BEAKER) (test code = 3206) Equivocal MYCOPLASMA PNEUMONIAE Not detected Not detected, (BEAKER) (test code = 3207) Equivocal SEVERE ACUTE RESPIRATORY Not detected Not detected, [id number]-[id number] Equivocal (test code = 5761206) BORDETELLA PARAPERTUSSIS Not detected Not detected, (BKR) (test code = 3846795) Equivocal Other viruses and bacteria not targeted by this PCR panel cannot be excluded; therefore clinical correlation and follow up of serology, culture results, and other molecular studies is required. The results are not intended to be used as the sole means for clinical diagnosis or patient management decisions. This sample was tested at the [facility] using the BoracciArray Respiratory Panel. It is FDA cleared and has been verified and approved by the [facility] for clinical use on nasopharyngeal swab specimens.The performance of the FilmArrayRP has not been established in individuals who received influenza vaccine. Recent administration of a nasal influenza vaccine may cause false positive results for Influenza A and/orInfluenza B.LIPID [id number] 09:29:31 Test Item Value Reference Range Interpretation Comments TRIGLYCERIDES (BEAKER) (test code = 193 mg/dL 540) CHOLESTEROL (BEAKER) (test code = 298 mg/dL 631) HDL CHOLESTEROL (BEAKER) (test code 32 mg/dL = 976) LDL CHOLESTEROL CALCULATED (BEAKER) 227 mg/dL (test code = 633) Triglyceride Reference Range: Low Risk <150 Borderline 150-199 High Risk 200- 499 Very High Risk >=500Cholesterol Reference Range: Low Risk <200 Borderline 200-239 High Risk >240HDL Cholesterol Reference Range: Low Risk >=60 High Risk <40LDL Cholesterol Reference Range: Optimal <100 Near Optimal 100-129 Borderline 130-159 High 160-189 Very High >=190 [employer] ID - ELISABET WLACTATE DEHYDROGENASE (LDH)2022-10-20 08:40:02 Test Item Value Reference Range Interpretation Comments LACTATE DEHYDROGENASE (BEAKER) (test 424 U/L 125-220 H code = 635) [employer] ID - HOME BRETICULOCYTE [id number] 06:30:29 Test Item Value Reference Range Interpretation Comments RETICULOCYTE COUNT PCT (BEAKER) (test 1.5 % 0.5-1.7 code = 575) [employer]neyman ID - [id number] 06:10:35 Test Item Value Reference Range Interpretation Comments MAGNESIUM (BEAKER) 2.1 mg/dL 1.6-2.6 Specimen slightly (test code = 627) hemolyzed [employer]ne[employer] ID - ELISABET WBASIC METABOLIC [id number] 06:10:35 Test Item Value Reference Range Interpretation Comments SODIUM (BEAKER) 132 meq/L 136-145 L (test code = 381) POTASSIUM 4.9 meq/L 3.5-5.1 Specimen slight ly (BEAKER) (test hemolyzed code = 379) CHLORIDE (BEAKER) 102 meq/L 98-107 (test code = 382) CO2 (BEAKER) 20 meq/L 22-29 L (test code = 355) BLOOD UREA 13 mg/dL 7-21 NITROGEN (BEAKER) (test code = 354) CREATININE 1.30 mg/dL 0.57-1.25 H Specimen slight ly (BEAKER) (test hemolyzed code = 358) GLUCOSE RANDOM 160 mg/dL 70-105 H (BEAKER) (test code = 652) CALCIUM (BEAKER) 8.7 mg/dL 8.4-10.2 (test code = 697) EGFR (BEAKER) 47 Interpretatio n of eGFR (test code = mL/min/1.73 values Stage De scription 1092) sq m Result G1 Sera l or high >=90 G2 Mildly decreased 60-89 G3a Mildl y to moderately 45-5 9 G3b Moderately to s everely 30-44 G4 Severl y decreased 15-29 G5 Kidney failure <15Reported eGF R is based on the CKD-EPI 2020 equation that d oes not use a race coefficientEsti mated GFR is not as accur ate as Creatinine Brenda corinne in predicting glom erular filtration rate . Estimated GFR is not appl icable for dialysis patien ts [employer] HAILEE BHANDARI WHEPATIC FUNCTION [id number] 06:10:35 Test Item Value Reference Range Interpretation Comments TOTAL PROTEIN (BEAKER) 8.0 gm/dL 6.0-8.3 Speci men slightly (test code = 770) hemolyzed ALBUMIN (BEAKER) (test 3.9 g/dL 3.5-5.0 Speci men slightly code = 1145) hemolyzed BILIRUBIN TOTAL 0.5 mg/dL 0.2-1.2 Specimen sli ghtly (BEAKER) (test code = hemoly zed 377) BILIRUBIN DIRECT 0.1 mg/dL 0.1-0.5 Specimen sl ightly (BEAKER) (test code = hemoly zed 706) ALKALINE PHOSPHATASE 94 U/L 40-150 (BEAKER) (test code = 346) AST (SGOT) (BEAKER) 24 U/L 5-34 Specimen slightly (test code = 353) hemolyzed ALT (SGPT) (BEAKER) 22 U/L 6-55 Specimen slightly (test code = 347) hemolyzed [employer] HAILEE BHANDARI WB-TYPE NATRIURETIC FACTOR (BNP)2022-10-20 05:25:08 Test Item Value Reference Range Interpretation Comments B-TYPE NATRIURETIC PEPTIDE (BEAKER) 23 pg/mL 0-100 (test code = 700) [employer] ID Nette BHANDARI WHIGH SENSITIVITY TROPONIN [id number] 05:24:04 Test Item Value Reference Range Interpretation Comments HIGH SENSITIVITY TROPONIN I (test 6 pg/ml <=17 code = 0778039) [employer] HAILEE BHANDARI WThe ELEMENTARY ELL TEACHER STAT High Sensitivity Troponin-I results should be used in conjunction with other diagnostic information such as ECG, clinical observations and information, and patient symptoms to aid in the diagnosis of PA.CBC (HEMOGRAM ONLY)2022-10-20 04:47:59 Test Item Value Reference Range Interpretation Comments WHITE BLOOD CELL COUNT (BEAKER) 8.7 K/ L 3.5-10.5 (test code = 775) RED BLOOD CELL COUNT (BEAKER) 3.08 M/ L 3.93-5.22 L (test code = 761) HEMOGLOBIN (BEAKER) (test code = 9.6 GM/DL 11.2-15.7 L 410) HEMATOCRIT (BEAKER) (test code = 28.9 % 34.1-44.9 L 411) MEAN CORPUSCULAR VOLUME (BEAKER) 94 fL 79-95 (test code = 753) MEAN CORPUSCULAR HEMOGLOBIN 31.2 pg 25.6-32.2 (BEAKER) (test code = 751) MEAN CORPUSCULAR HEMOGLOBIN CONC 33.2 GM/DL 32.2-35.5 (BEAKER) (test code = 752) RED CELL DISTRIBUTION WIDTH 14.9 % 11.7-14.4 H (BEAKER) (test code = 412) PLATELET COUNT (BEAKER) (test 112 K/CU MM 150-450 L code = 756) MEAN PLATELET VOLUME (BEAKER) 10.2 fL 9.4-12.3 (test code = 754) NUCLEATED RED BLOOD CELLS 0 /100 WBC 0-0 (BEAKER) (test code = 413) BLOOD GAS, [id number] 04:38:53 Test Item Value Reference Range Interpretation Comments PH VENOUS (BEAKER) (test code = 7.40 7.32-7.42 701) PCO2 VENOUS (BEAKER) (test code = 38 mm Hg 41-51 L 755) PO2 VENOUS (BEAKER) (test code = 96 mm Hg 25-40 H 702) O2 SATURATION VENOUS (BEAKER) 97.3 % 40.0-70.0 H (test code = 703) HCO3 VENOUS (BEAKER) (test code = 23 mmol/L 21-29 705) BASE EXCESS VENOUS (BEAKER) (test -1.5 mmol/L -2.0-3.0 code = 704) PATIENT TEMPERATURE (BEAKER) 37.2 (test code = 1818) FIO2 (BEAKER) (test code = 1819) 30.0 CARDIAC [id number] 08:54:00 Test Item Value Reference Range Interpretation Comments Total CK (test code = Total CK) 80 12-191 [facility] Biometric SecurityCARDIAC [id number] 08:54:00 Test Item Value Reference Range Interpretation Comments Troponin-I (test code no gt See_Comment [Auto mated message] The = Troponin-I) system which g enerated this result transmit yue reference range : <=0.40. The reference r xu was not used to interpr et this result as sera l/abnormal. [facility] [employer]meAC [id number] 08:54:00 Test Item Value Reference Range Interpretation Comments CK MB Index (test 0.9 See_Comment [Automate d message] The code = CK MB Index) system w [facility] generated this result transmit yue reference range : <=2.5. The reference range was not used to interpr et this result as sera l/abnormal. [facility] [employer] [id number] 08:54:00 Test Item Value Reference Range Interpretation Comments CK MB (test code = CK MB) 0.7 0.5-3.6 [facility] [employer] [id number] 08:54:00 Test Item Value Reference Range Interpretation Comments eGFR (test code = eGFR) 57 [facility] [employer] [id number] 08:54:00 Test Item Value Reference Range Interpretation Comments AGAP (test code = AGAP) 12.5 10.0-20.0 [facility] [employer] [id number] 08:54:00 Test Item Value Reference Range Interpretation Comments Calcium Lvl (test code = Calcium Lvl) 8.6 8.5-10.5 [facility] [employer] [id number] 08:54:00 Test Item Value Reference Range Interpretation Comments Glucose Lvl (test code = Glucose Lvl) 82 70-99 [facility] [employer] [id number] 08:54:00 Test Item Value Reference Range Interpretation Comments BUN (test code = BUN) 12 7-22 [facility] [employer] [id number] 08:54:00 Test Item Value Reference Range Interpretation Comments Sodium Lvl (test code = Sodium Lvl) 144 135-145 [facility] [employer] [id number] 08:54:00 Test Item Value Reference Range Interpretation Comments CO2 (test code = CO2) 26 24-32 [facility]2016-05-19 08:54:00 Test Item Value Reference Range Interpretation Comments Potassium Lvl (test code = Potassium 3.5 3.5-5.1 Lvl) [facility]2016-05-19 08:54:00 Test Item Value Reference Range Interpretation Comments Chloride Lvl (test code = Chloride Lvl) 109 95-109 [facility]2016-05-19 08:54:00 Test Item Value Reference Range Interpretation Comments Creatinine Lvl (test code = Creatinine 1.10 0.50-1.40 Lvl) [facility] 08:54:00 Test Item Value Reference Range Interpretation Comments Segs (test code = Segs) 58.5 45.0-75.0 [facility]DutuatfJVWEPWDIPV8647-97-23 08:54:00 Test Item Value Reference Range Interpretation Comments Lymphocytes (test code = Lymphocytes) 31.4 20.0-40.0 [facility]QtizjkbNJZCXVNAHJ2295-09-34 08:54:00 Test Item Value Reference Range Interpretation Comments Lymphocytes # (test code = Lymphocytes 1.7 1.0-5.5 #) [facility]RvssuguGVSNYRITMY5216-81-33 08:54:00 Test Item Value Reference Range Interpretation Comments Segs-Bands # (test code = Segs-Bands #) 3.2 1.5-8.1 [facility]FwxpnlzCBBNEAOTGN8783-93-22 08:54:00 Test Item Value Reference Range Interpretation Comments Eosinophils # (test code 0.0 See_Comment [A utomated message] The = Eosinophils #) system whic h generated this result tra nsmitted reference range : <=0.5. The reference r xu was not used to int erpret this result as normal/abnormal . [facility]UklzrepNGYVHQOZVM1406-79-79 08:54:00 Test Item Value Reference Range Interpretation Comments Monocytes # (test code 0.5 See_Comment [Aut omated message] The = Monocytes #) system which generated this result tra nsmitted reference range : <=0.8. The reference r xu was not used to int erpret this result as normal/abnormal . [facility]KdqkoppKHXCKKMAEX6730-16-60 08:54:00 Test Item Value Reference Range Interpretation Comments Basophils # (test code 0.0 See_Comment [Aut omated message] The = Basophils #) system which generated this result tra nsmitted reference range : <=0.2. The reference r xu was not used to int erpret this result as normal/abnormal . [facility]DvorngpKOYHUEAQDD5331-27-70 08:54:00 Test Item Value Reference Range Interpretation Comments Monocytes (test code = Monocytes) 9.8 2.0-12.0 [facility]TirzqybOMTVDSWASD8555-03-79 08:54:00 Test Item Value Reference Range Interpretation Comments Eosinophils (test code = 0.0 See_Comment [A utomated message] The Eosinophils) system which ge nerated this result tra nsmitted reference range : <=4.0. The reference r xu was not used to int erpret this result as normal/abnormal . [facility]PqoynhnOWDHPBSVJH6433-91-39 08:54:00 Test Item Value Reference Range Interpretation Comments Basophils (test code = 0.3 See_Comment [Aut omated message] The Basophils) system which ge nerated this result tra nsmitted reference range : <=1.0. The reference r xu was not used to int erpret this result as normal/abnormal . [facility]TpzxjfvSLJFEPGXKP2671-33-10 08:54:00 Test Item Value Reference Range Interpretation Comments MPV (test code = MPV) 8.0 7.4-10.4 [facility]ZzjrvsjENDETIEREC8436-04-80 08:54:00 Test Item Value Reference Range Interpretation Comments RDW (test code = RDW) 15.7 11.5-14.5 [facility]WvckyaqXABILVIBHC4397-05-12 08:54:00 Test Item Value Reference Range Interpretation Comments Platelet (test code = Platelet) 161 133-450 [facility]BlxubnuQMIEIVGPZE0993-52-71 08:54:00 Test Item Value Reference Range Interpretation Comments MCHC (test code = MCHC) 32.2 32.0-36.0 [facility]WpzicbjSDSSDTKAQE9158-10-62 08:54:00 Test Item Value Reference Range Interpretation Comments MCH (test code = MCH) 28.6 pg 27.0-31.0 [facility]HodjeuiKFSWPCVHUE2649-07-78 08:54:00 Test Item Value Reference Range Interpretation Comments Hct (test code = Hct) 34.3 36.0-48.0 [facility]EqhqtuzXUBSJEZAKL8363-32-11 08:54:00 Test Item Value Reference Range Interpretation Comments MCV (test code = MCV) 88.7 80.0-98.0 [facility]MkvptwnZGHVBFEART4039-37-30 08:54:00 Test Item Value Reference Range Interpretation Comments RBC (test code = RBC) 3.86 4.20-5.40 [facility]DyjtbqbTATQELGWEA2750-54-05 08:54:00 Test Item Value Reference Range Interpretation Comments Hgb (test code = Hgb) 11.0 12.0-16.0 [facility]UbuheseKLULZHIERS1931-79-25 08:54:00 Test Item Value Reference Range Interpretation Comments WBC (test code = WBC) 5.5 3.7-10.4 [facility]2016-05-19 08:54:00 Test Item Value Reference Range Interpretation Comments Creatinine Lvl (test code = Creatinine 1.10 0.50-1.40 Lvl) [facility]WookqprXDLFIUWGNU7644-98-04 08:54:00 Test Item Value Reference Range Interpretation Comments Segs (test code = Segs) 58.5 45.0-75.0 [facility]PkcfekrHYFGDTEVNE7451-32-62 08:54:00 Test Item Value Reference Range Interpretation Comments Lymphocytes (test code = Lymphocytes) 31.4 20.0-40.0 [facility]EdbqlmgPBTJBEUJPX0461-24-36 08:54:00 Test Item Value Reference Range Interpretation Comments Lymphocytes # (test code = Lymphocytes 1.7 1.0-5.5 #) [facility]HuwndstSAFUPAEDZK8087-35-42 08:54:00 Test Item Value Reference Range Interpretation Comments Segs-Bands # (test code = Segs-Bands #) 3.2 1.5-8.1 [facility]MjxrfjzHPGSQDCHNI0219-93-30 08:54:00 Test Item Value Reference Range Interpretation Comments Eosinophils # (test code 0.0 See_Comment [A utomated message] The = Eosinophils #) system whic h generated this result tra nsmitted reference range : <=0.5. The reference r xu was not used to int erpret this result as normal/abnormal . [facility]HlolenoHMXJVLBYMZ9381-89-20 08:54:00 Test Item Value Reference Range Interpretation Comments Monocytes # (test code 0.5 See_Comment [Aut omated message] The = Monocytes #) system which generated this result tra nsmitted reference range : <=0.8. The reference r xu was not used to int erpret this result as normal/abnormal . [facility]KpesrqtYQJLZUSXGZ6254-15-10 08:54:00 Test Item Value Reference Range Interpretation Comments Basophils # (test code 0.0 See_Comment [Aut omated message] The = Basophils #) system which generated this result tra nsmitted reference range : <=0.2. The reference r xu was not used to int erpret this result as normal/abnormal . [facility]HpifhpqZJIJTJYMRX2953-76-71 08:54:00 Test Item Value Reference Range Interpretation Comments Monocytes (test code = Monocytes) 9.8 2.0-12.0 [facility]TnysgrmMBNBIWOEWS3398-79-97 08:54:00 Test Item Value Reference Range Interpretation Comments Eosinophils (test code = 0.0 See_Comment [A utomated message] The Eosinophils) system which ge nerated this result tra nsmitted reference range : <=4.0. The reference r xu was not used to int erpret this result as normal/abnormal . [facility]XxvckurWZDHEQUDED3133-77-18 08:54:00 Test Item Value Reference Range Interpretation Comments Basophils (test code = 0.3 See_Comment [Aut omated message] The Basophils) system which ge nerated this result tra nsmitted reference range : <=1.0. The reference r xu was not used to int erpret this result as normal/abnormal . [facility]VynnngnFFVTHWRNGS2456-67-41 08:54:00 Test Item Value Reference Range Interpretation Comments MPV (test code = MPV) 8.0 7.4-10.4 [facility]WhdwxvuHJIQXJPJLZ0119-62-84 08:54:00 Test Item Value Reference Range Interpretation Comments RDW (test code = RDW) 15.7 11.5-14.5 [facility]FekwlieXMADVJQYWN5419-71-69 08:54:00 Test Item Value Reference Range Interpretation Comments Platelet (test code = Platelet) 161 133-450 [facility]PnoqepkKRBHSNGPHA6360-08-22 08:54:00 Test Item Value Reference Range Interpretation Comments MCHC (test code = MCHC) 32.2 32.0-36.0 [facility]GiednodNKWUTMNADJ9528-45-31 08:54:00 Test Item Value Reference Range Interpretation Comments MCH (test code = MCH) 28.6 pg 27.0-31.0 [facility] CmpkfybNZYCGSBNUX1041-25-63 08:54:00 Test Item Value Reference Range Interpretation Comments Hct (test code = Hct) 34.3 36.0-48.0 [facility] PvfcaubQKSXIZLZCH2886-97-25 08:54:00 Test Item Value Reference Range Interpretation Comments MCV (test code = MCV) 88.7 80.0-98.0 [facility]WW[facility]WH[facility]XX[facility] 08:54:00 Test Item Value Reference Range Interpretation Comments RBC (test code = RBC) 3.86 4.20-5.40 [facility] XpqizgzXRTBUTPCGM4647-34-17 08:54:00 Test Item Value Reference Range Interpretation Comments Hgb (test code = Hgb) 11.0 12.0-16.0 [facility] XionbrdWWNSHAMLUY7426-52-84 08:54:00 Test Item Value Reference Range Interpretation Comments WBC (test code = WBC) 5.5 3.7-10.4 [facility] [employer]2016-05-19 08:54:00 Test Item Value Reference Range Interpretation Comments Total CK (test code = Total CK) 80 12-191 [facility] [employer]2016-05-19 08:54:00 Test Item Value Reference Range Interpretation Comments Troponin-I (test code no gt See_Comment [Auto mated message] The = Troponin-I) system which g enerated this result transmit yue reference range : <=0.40. The reference r xu was not used to interpr et this result as sera l/abnormal. [facility] [employer]2016-05-19 08:54:00 Test Item Value Reference Range Interpretation Comments CK MB Index (test 0.9 See_Comment [Automate d message] The code = CK MB Index) system w [facility] generated this result transmit yue reference range : <=2.5. The reference range was not used to interpr et this result as sera l/abnormal. [employer]2016-05-19 08:54:00 Test Item Value Reference Range Interpretation Comments CK MB (test code = CK MB) 0.7 0.5-3.6 [place] [facility]00 Test Item Value Reference Range Interpretation Comments eGFR (test code = eGFR) 57 [facility]2016-05-19 08:54:00 Test Item Value Reference Range Interpretation Comments AGAP (test code = AGAP) 12.5 10.0-20.0 [facility]2016-05-19 08:54:00 Test Item Value Reference Range Interpretation Comments Calcium Lvl (test code = Calcium Lvl) 8.6 8.5-10.5 [facility]2016-05-19 08:54:00 Test Item Value Reference Range Interpretation Comments Glucose Lvl (test code = Glucose Lvl) 82 70-99 [facility]2016-05-19 08:54:00 Test Item Value Reference Range Interpretation Comments BUN (test code = BUN) 12 7-22 [facility]2016-05-19 08:54:00 Test Item Value Reference Range Interpretation Comments Sodium Lvl (test code = Sodium Lvl) 144 135-145 [facility]2016-05-19 08:54:00 Test Item Value Reference Range Interpretation Comments CO2 (test code = CO2) 26 24-32 [facility]2016-05-19 08:54:00 Test Item Value Reference Range Interpretation Comments Potassium Lvl (test code = Potassium 3.5 3.5-5.1 Lvl) [facility]2016-05-19 08:54:00 Test Item Value Reference Range Interpretation Comments Chloride Lvl (test code = Chloride Lvl) 109 95-109 [facility]2016-05-19 08:54:00 Test Item Value Reference Range Interpretation Comments Creatinine Lvl (test code = Creatinine 1.10 0.50-1.40 Lvl) [facility] 08:54:00 Test Item Value Reference Range Interpretation Comments Segs (test code = Segs) 58.5 45.0-75.0 [facility]MshwypjVZDFPLDWWE3067-01-53 08:54:00 Test Item Value Reference Range Interpretation Comments Lymphocytes (test code = Lymphocytes) 31.4 20.0-40.0 [facility]PaqqmuuHAYKHGMOMG0408-02-09 08:54:00 Test Item Value Reference Range Interpretation Comments Lymphocytes # (test code = Lymphocytes 1.7 1.0-5.5 #) [facility]TpsjrxvAGAOGDTAYX4633-18-60 08:54:00 Test Item Value Reference Range Interpretation Comments Segs-Bands # (test code = Segs-Bands #) 3.2 1.5-8.1 [facility]DnqgjjqKSDUGVOXRS0291-45-44 08:54:00 Test Item Value Reference Range Interpretation Comments Eosinophils # (test code 0.0 See_Comment [A utomated message] The = Eosinophils #) system wh h generated this result tra nsmitted reference range : <=0.5. The reference r xu was not used to int erpret this result as normal/abnormal . [facility]DcigbtwJHDDVUZTUK2435-50-51 08:54:00 Test Item Value Reference Range Interpretation Comments Monocytes # (test code 0.5 See_Comment [Aut omated message] The = Monocytes #) system which generated this result tra nsmitted reference range : <=0.8. The reference r xu was not used to int erpret this result as normal/abnormal . [facility]TghyvrhBFNRJQBTNY8138-03-15 08:54:00 Test Item Value Reference Range Interpretation Comments Basophils # (test code 0.0 See_Comment [Aut omated message] The = Basophils #) system which generated this result tra nsmitted reference range : <=0.2. The reference r xu was not used to int erpret this result as normal/abnormal . [facility]YifyjmvYDPDOYXOIV1938-77-54 08:54:00 Test Item Value Reference Range Interpretation Comments Monocytes (test code = Monocytes) 9.8 2.0-12.0 [facility]TjzdldcWPKUNABGDM1593-38-22 08:54:00 Test Item Value Reference Range Interpretation Comments Eosinophils (test code = 0.0 See_Comment [A utomated message] The Eosinophils) system which ge nerated this result tra nsmitted reference range : <=4.0. The reference r xu was not used to int erpret this result as normal/abnormal . [facility]UkjzmzrAWYYZYBJEM7028-53-56 08:54:00 Test Item Value Reference Range Interpretation Comments Basophils (test code = 0.3 See_Comment [Aut omated message] The Basophils) system which ge nerated this result tra nsmitted reference range : <=1.0. The reference r xu was not used to int erpret this result as normal/abnormal . [facility] [id number] 08:54:00 Test Item Value Reference Range Interpretation Comments Total CK (test code = Total CK) 80 12-191 [facility] ARNKAVV3285-36-62 08:54:00 Test Item Value Reference Range Interpretation Comments Troponin-I (test code no gt See_Comment [Auto mated message] The = Troponin-I) system which g enerated this result transmit yue reference range : <=0.40. The reference r xu was not used to interpr et this result as sera l/abnormal. [facility] [id number] 08:54:00 Test Item Value Reference Range Interpretation Comments CK MB Index (test 0.9 See_Comment [Automate d message] The code = CK MB Index) system w [facility] generated this result transmit yue reference range : <=2.5. The reference range was not used to interpr et this result as sera l/abnormal. [facility] [id number] 08:54:00 Test Item Value Reference Range Interpretation Comments CK MB (test code = CK MB) 0.7 0.5-3.6 [facility] [id number] 08:54:00 Test Item Value Reference Range Interpretation Comments eGFR (test code = eGFR) 57 [facility] DEAWD1546-02-62 08:54:00 Test Item Value Reference Range Interpretation Comments AGAP (test code = AGAP) 12.5 10.0-20.0 [facility] HospitalPwsxhwvMXMRKLJSMH4348-80-36 08:54:00 Test Item Value Reference Range Interpretation Comments MPV (test code = MPV) 8.0 7.4-10.4 [facility] [id number] 08:54:00 Test Item Value Reference Range Interpretation Comments Calcium Lvl (test code = Calcium Lvl) 8.6 8.5-10.5 [facility] [id number] 08:54:00 Test Item Value Reference Range Interpretation Comments Glucose Lvl (test code = Glucose Lvl) 82 70-99 [facility] [id number] 08:54:00 Test Item Value Reference Range Interpretation Comments BUN (test code = BUN) 12 7-22 [facility] [id number] 08:54:00 Test Item Value Reference Range Interpretation Comments Sodium Lvl (test code = Sodium Lvl) 144 135-145 [facility]2016-05-19 08:54:00 Test Item Value Reference Range Interpretation Comments CO2 (test code = CO2) 26 24-32 [facility]2016-05-19 08:54:00 Test Item Value Reference Range Interpretation Comments Potassium Lvl (test code = Potassium 3.5 3.5-5.1 Lvl) [facility]2016-05-19 08:54:00 Test Item Value Reference Range Interpretation Comments Chloride Lvl (test code = Chloride Lvl) 109 95-109 [facility]2016-05-19 08:54:00 Test Item Value Reference Range Interpretation Comments Creatinine Lvl (test code = Creatinine 1.10 0.50-1.40 Lvl) [facility]GqqipbiFOHYSCWHZN3219-34-64 08:54:00 Test Item Value Reference Range Interpretation Comments Segs (test code = Segs) 58.5 45.0-75.0 [facility]GyjdjrfDMTCCRQBWJ0316-69-89 08:54:00 Test Item Value Reference Range Interpretation Comments Lymphocytes (test code = Lymphocytes) 31.4 20.0-40.0 [facility]LtdvfqqQBLHAJLYKI1764-41-18 08:54:00 Test Item Value Reference Range Interpretation Comments RDW (test code = RDW) 15.7 11.5-14.5 [facility]FpyaejjZMCTYRZFMZ2934-27-08 08:54:00 Test Item Value Reference Range Interpretation Comments Lymphocytes # (test code = Lymphocytes 1.7 1.0-5.5 #) [facility]BbithzqMRJSDXUHGN9587-89-18 08:54:00 Test Item Value Reference Range Interpretation Comments Segs-Bands # (test code = Segs-Bands #) 3.2 1.5-8.1 [facility]YzngbzdWILRKCHHMD6759-51-86 08:54:00 Test Item Value Reference Range Interpretation Comments Eosinophils # (test code 0.0 See_Comment [A utomated message] The = Eosinophils #) system whic h generated this result tra nsmitted reference range : <=0.5. The reference r xu was not used to int erpret this result as normal/abnormal . [facility]HjbhajbPBANWASMDV6840-68-46 08:54:00 Test Item Value Reference Range Interpretation Comments Monocytes # (test code 0.5 See_Comment [Aut omated message] The = Monocytes #) system which generated this result tra nsmitted reference range : <=0.8. The reference r xu was not used to int erpret this result as normal/abnormal . [facility]DfdiofhKNYVZTUHQR8417-76-99 08:54:00 Test Item Value Reference Range Interpretation Comments Basophils # (test code 0.0 See_Comment [Aut omated message] The = Basophils #) system which generated this result tra nsmitted reference range : <=0.2. The reference r xu was not used to int erpret this result as normal/abnormal . [facility]JzymumpIKXGVKQKLA8463-47-74 08:54:00 Test Item Value Reference Range Interpretation Comments Monocytes (test code = Monocytes) 9.8 2.0-12.0 [facility]YbtdrrmDEERNXIAWD2385-95-77 08:54:00 Test Item Value Reference Range Interpretation Comments Eosinophils (test code = 0.0 See_Comment [A utomated message] The Eosinophils) system which ge nerated this result tra nsmitted reference range : <=4.0. The reference r xu was not used to int erpret this result as normal/abnormal . [facility]CvqupeaPMAHTIKJKS6879-81-40 08:54:00 Test Item Value Reference Range Interpretation Comments Basophils (test code = 0.3 See_Comment [Aut omated message] The Basophils) system which ge nerated this result tra nsmitted reference range : <=1.0. The reference r xu was not used to int erpret this result as normal/abnormal . [facility]GsngzudIWKZSFJRKO0900-54-88 08:54:00 Test Item Value Reference Range Interpretation Comments MPV (test code = MPV) 8.0 7.4-10.4 [facility]HuxgxkdKLMYOBWYVF1129-95-67 08:54:00 Test Item Value Reference Range Interpretation Comments RDW (test code = RDW) 15.7 11.5-14.5 [facility]JbomuadGLWZHRFEJN8353-32-88 08:54:00 Test Item Value Reference Range Interpretation Comments Platelet (test code = Platelet) 161 133-450 [facility]WnqxlxsUVCYIBXHLP0480-89-34 08:54:00 Test Item Value Reference Range Interpretation Comments Platelet (test code = Platelet) 161 133-450 [facility]HcqnbqyRCWOSGSZAY4485-78-28 08:54:00 Test Item Value Reference Range Interpretation Comments MCHC (test code = MCHC) 32.2 32.0-36.0 [facility]GuwceteNSCFKKINWK4862-95-41 08:54:00 Test Item Value Reference Range Interpretation Comments MCH (test code = MCH) 28.6 pg 27.0-31.0 [facility]QvaybkxWTWIJWUYZU8214-64-34 08:54:00 Test Item Value Reference Range Interpretation Comments Hct (test code = Hct) 34.3 36.0-48.0 [facility]CvbevtjAWLEROWKLY5711-73-72 08:54:00 Test Item Value Reference Range Interpretation Comments MCV (test code = MCV) 88.7 80.0-98.0 [facility]EjurscmHBVRCGTHDS6308-68-73 08:54:00 Test Item Value Reference Range Interpretation Comments RBC (test code = RBC) 3.86 4.20-5.40 [facility]MxhwlyhBEKTLERHIV2995-26-00 08:54:00 Test Item Value Reference Range Interpretation Comments Hgb (test code = Hgb) 11.0 12.0-16.0 [facility]QnwdpjfOXCCHZUQSD3747-31-87 08:54:00 Test Item Value Reference Range Interpretation Comments WBC (test code = WBC) 5.5 3.7-10.4 [facility]XocyaepGRJWZGIOQC2878-68-82 08:54:00 Test Item Value Reference Range Interpretation Comments MCHC (test code = MCHC) 32.2 32.0-36.0 [facility]OxjllmtHDVQCIYBSD8165-71-85 08:54:00 Test Item Value Reference Range Interpretation Comments MCH (test code = MCH) 28.6 pg 27.0-31.0 [facility]NvashoaNEGMFFELLK2917-35-92 08:54:00 Test Item Value Reference Range Interpretation Comments Hct (test code = Hct) 34.3 36.0-48.0 [facility]YpebanyZAAZDYIKPF2448-98-72 08:54:00 Test Item Value Reference Range Interpretation Comments MCV (test code = MCV) 88.7 80.0-98.0 [facility]SiddiutZOEBYELHKC4973-06-48 08:54:00 Test Item Value Reference Range Interpretation Comments RBC (test code = RBC) 3.86 4.20-5.40 [facility]HhdjvprDEXAONYYWR0368-68-76 08:54:00 Test Item Value Reference Range Interpretation Comments Hgb (test code = Hgb) 11.0 12.0-16.0 [facility] CenterVgtrpnsKJDFFTLMSX2261-65-08 08:54:00 Test Item Value Reference Range Interpretation Comments WBC (test code = WBC) 5.5 3.7-10.4 [facility]annB[facility] BranchAC ADBXBNI2386-52-03 08:54:00 Test Item Value Reference Range Interpretation Comments Total CK (test code = Total CK) 80 12-191 [facility] GQRBCJB0599-09-02 08:54:00 Test Item Value Reference Range Interpretation Comments Troponin-I (test code no gt See_Comment [Auto mated message] The = Troponin-I) system which g enerated this result transmit yue reference range : <=0.40. The reference r xu was not used to interpr et this result as sera l/abnormal. [facility] TSSDFYO4211-47-78 08:54:00 Test Item Value Reference Range Interpretation Comments CK MB Index (test 0.9 See_Comment [Automate d message] The code = CK MB Index) system w [facility] generated this result transmit yue reference range : <=2.5. The reference range was not used to interpr et this result as sera l/abnormal. [facility] [employer] NKDTKXA9487-55-52 08:54:00 Test Item Value Reference Range Interpretation Comments CK MB (test code = CK MB) 0.7 0.5-3.6 [facility] [employer] [id number] 08:54:00 Test Item Value Reference Range Interpretation Comments eGFR (test code = eGFR) 57 [facility] [employer] TTDYG5277-26-21 08:54:00 Test Item Value Reference Range Interpretation Comments AGAP (test code = AGAP) 12.5 10.0-20.0 [facility] [employer] VLQZV3554-00-51 08:54:00 Test Item Value Reference Range Interpretation Comments Calcium Lvl (test code = Calcium Lvl) 8.6 8.5-10.5 [facility] [employer] EXCCW7058-02-80 08:54:00 Test Item Value Reference Range Interpretation Comments Glucose Lvl (test code = Glucose Lvl) 82 70-99 [facility] [employer] HEQGQ2212-39-13 08:54:00 Test Item Value Reference Range Interpretation Comments BUN (test code = BUN) 12 7-22 [facility]2016-05-19 08:54:00 Test Item Value Reference Range Interpretation Comments Sodium Lvl (test code = Sodium Lvl) 144 135-145 [facility]2016-05-19 08:54:00 Test Item Value Reference Range Interpretation Comments CO2 (test code = CO2) 26 24-32 [facility]2016-05-19 08:54:00 Test Item Value Reference Range Interpretation Comments Potassium Lvl (test code = Potassium 3.5 3.5-5.1 Lvl) [facility]2016-05-19 08:54:00 Test Item Value Reference Range Interpretation Comments Chloride Lvl (test code = Chloride Lvl) 109 95-109 [facility]2016-05-19 08:54:00 Test Item Value Reference Range Interpretation Comments Creatinine Lvl (test code = Creatinine 1.10 0.50-1.40 Lvl) [facility]FkpscreDVYKASIXIP3487-93-62 08:54:00 Test Item Value Reference Range Interpretation Comments Segs (test code = Segs) 58.5 45.0-75.0 [facility]IgliygqISDHRAHWEW6869-20-54 08:54:00 Test Item Value Reference Range Interpretation Comments Lymphocytes (test code = Lymphocytes) 31.4 20.0-40.0 [facility]RefinvdVLHXNMXWOX3497-47-21 08:54:00 Test Item Value Reference Range Interpretation Comments Lymphocytes # (test code = Lymphocytes 1.7 1.0-5.5 #) [facility]RszyaqyQFIBMRTBAB7828-28-09 08:54:00 Test Item Value Reference Range Interpretation Comments Segs-Bands # (test code = Segs-Bands #) 3.2 1.5-8.1 [facility]BewhugxITFCZTNCAF9000-62-23 08:54:00 Test Item Value Reference Range Interpretation Comments Eosinophils # (test code 0.0 See_Comment [A utomated message] The = Eosinophils #) system whic h generated this result tra nsmitted reference range : <=0.5. The reference r xu was not used to int erpret this result as normal/abnormal . [facility]UckosjqEQBDPQNVNF8226-18-13 08:54:00 Test Item Value Reference Range Interpretation Comments Monocytes # (test code 0.5 See_Comment [Aut omated message] The = Monocytes #) system which generated this result tra nsmitted reference range : <=0.8. The reference r xu was not used to int erpret this result as normal/abnormal . [facility]TwfgzlrQUYQBTKDOO9219-63-00 08:54:00 Test Item Value Reference Range Interpretation Comments Basophils # (test code 0.0 See_Comment [Aut omated message] The = Basophils #) system which generated this result tra nsmitted reference range : <=0.2. The reference r xu was not used to int erpret this result as normal/abnormal . [facility]BoelyyxABWDUMOZKW5358-75-43 08:54:00 Test Item Value Reference Range Interpretation Comments Monocytes (test code = Monocytes) 9.8 2.0-12.0 [facility]WxetjjwGMYHRWJULE5544-03-43 08:54:00 Test Item Value Reference Range Interpretation Comments Eosinophils (test code = 0.0 See_Comment [A utomated message] The Eosinophils) system which ge nerated this result tra nsmitted reference range : <=4.0. The reference r xu was not used to int erpret this result as normal/abnormal . [facility]IiwhbvfVCXMVXXUUP6159-37-02 08:54:00 Test Item Value Reference Range Interpretation Comments Basophils (test code = 0.3 See_Comment [Aut omated message] The Basophils) system which ge nerated this result tra nsmitted reference range : <=1.0. The reference r xu was not used to int erpret this result as normal/abnormal . [facility]DcigpisLGKQLVZCWS2537-06-03 08:54:00 Test Item Value Reference Range Interpretation Comments MPV (test code = MPV) 8.0 7.4-10.4 [facility]JbsrwttVTZGUWVZWT3773-97-34 08:54:00 Test Item Value Reference Range Interpretation Comments RDW (test code = RDW) 15.7 11.5-14.5 [facility]CecqvgcTGTUQNYHXA0573-18-15 08:54:00 Test Item Value Reference Range Interpretation Comments Platelet (test code = Platelet) 161 133-450 [facility]ZavzebtSNQIMACLUX4663-46-84 08:54:00 Test Item Value Reference Range Interpretation Comments MCHC (test code = MCHC) 32.2 32.0-36.0 [facility]ZynhvefLGGEHCCULA9579-82-52 08:54:00 Test Item Value Reference Range Interpretation Comments MCH (test code = MCH) 28.6 pg 27.0-31.0 [facility] CenterFhdnvwzCBBIDUPZHZ7838-57-75 08:54:00 Test Item Value Reference Range Interpretation Comments Hct (test code = Hct) 34.3 36.0-48.0 [facility] CenterSuvyabyDWXUXXVKZJ8287-95-29 08:54:00 Test Item Value Reference Range Interpretation Comments MCV (test code = MCV) 88.7 80.0-98.0 [facility] CenterMsfjnncOCTGPMJTJT2835-90-80 08:54:00 Test Item Value Reference Range Interpretation Comments RBC (test code = RBC) 3.86 4.20-5.40 [facility] RilcxjtXYLALXVQHS9376-35-76 08:54:00 Test Item Value Reference Range Interpretation Comments Hgb (test code = Hgb) 11.0 12.0-16.0 [facility] CenterAozewcwBPDIQQWFHS3747-34-06 08:54:00 Test Item Value Reference Range Interpretation Comments WBC (test code = WBC) 5.5 3.7-10.4 [facility] 08:54:00 Test Item Value Reference Range Interpretation Comments Total CK (test code = Total CK) 80 12-191 [facility] [employer]2016-05-19 08:54:00 Test Item Value Reference Range Interpretation Comments Troponin-I (test code no gt See_Comment [Auto mated message] The = Troponin-I) system which g enerated this result transmit yue reference range : <=0.40. The reference r xu was not used to interpr et this result as sera l/abnormal. [facility] [employer]2016-05-19 08:54:00 Test Item Value Reference Range Interpretation Comments CK MB Index (test 0.9 See_Comment [Automate d message] The code = CK MB Index) system w [facility] generated this result transmit yue reference range : <=2.5. The reference range was not used to interpr et this result as sera l/abnormal. [facility] [employer]2016-05-19 08:54:00 Test Item Value Reference Range Interpretation Comments CK MB (test code = CK MB) 0.7 0.5-3.6 [facility] [employer]2016-05-19 08:54:00 Test Item Value Reference Range Interpretation Comments eGFR (test code = eGFR) 57 [facility]2016-05-19 08:54:00 Test Item Value Reference Range Interpretation Comments AGAP (test code = AGAP) 12.5 10.0-20.0 [facility]2016-05-19 08:54:00 Test Item Value Reference Range Interpretation Comments Calcium Lvl (test code = Calcium Lvl) 8.6 8.5-10.5 [facility]2016-05-19 08:54:00 Test Item Value Reference Range Interpretation Comments Glucose Lvl (test code = Glucose Lvl) 82 70-99 [facility]2016-05-19 08:54:00 Test Item Value Reference Range Interpretation Comments BUN (test code = BUN) 12 7-22 [facility]2016-05-19 08:54:00 Test Item Value Reference Range Interpretation Comments Sodium Lvl (test code = Sodium Lvl) 144 135-145 [facility]2016-05-19 08:54:00 Test Item Value Reference Range Interpretation Comments CO2 (test code = CO2) 26 24-32 [facility]2016-05-19 08:54:00 Test Item Value Reference Range Interpretation Comments Potassium Lvl (test code = Potassium 3.5 3.5-5.1 Lvl) [facility]2016-05-19 08:54:00 Test Item Value Reference Range Interpretation Comments Chloride Lvl (test code = Chloride Lvl) 109 95-109 [facility]2016-05-19 08:54:00 Test Item Value Reference Range Interpretation Comments Creatinine Lvl (test code = Creatinine 1.10 0.50-1.40 Lvl) [facility]VyejpzbTVMAMZOAWF9462-71-85 08:54:00 Test Item Value Reference Range Interpretation Comments Segs (test code = Segs) 58.5 45.0-75.0 [facility]NrthfuwUGCGWQAJUL6318-78-95 08:54:00 Test Item Value Reference Range Interpretation Comments Lymphocytes (test code = Lymphocytes) 31.4 20.0-40.0 [facility]IbokxasRUVLOUZCAS9403-53-54 08:54:00 Test Item Value Reference Range Interpretation Comments Lymphocytes # (test code = Lymphocytes 1.7 1.0-5.5 #) [facility]YvdxslnXKTHPWTWTM3560-15-57 08:54:00 Test Item Value Reference Range Interpretation Comments Segs-Bands # (test code = Segs-Bands #) 3.2 1.5-8.1 [facility]RqaqclbIGNFKINGBC2146-11-61 08:54:00 Test Item Value Reference Range Interpretation Comments Eosinophils # (test code 0.0 See_Comment [A utomated message] The = Eosinophils #) system whic h generated this result tra nsmitted reference range : <=0.5. The reference r xu was not used to int erpret this result as normal/abnormal . [facility]ZivechnWEJLRVSKJC4054-30-67 08:54:00 Test Item Value Reference Range Interpretation Comments Monocytes # (test code 0.5 See_Comment [Aut omated message] The = Monocytes #) system which generated this result tra nsmitted reference range : <=0.8. The reference r xu was not used to int erpret this result as normal/abnormal . [facility]OjokrfhKWEMCRIXRD2231-29-37 08:54:00 Test Item Value Reference Range Interpretation Comments Basophils # (test code 0.0 See_Comment [Aut omated message] The = Basophils #) system which generated this result tra nsmitted reference range : <=0.2. The reference r xu was not used to int erpret this result as normal/abnormal . [facility]KjrnuwpLHBITDDLAG5178-60-63 08:54:00 Test Item Value Reference Range Interpretation Comments Monocytes (test code = Monocytes) 9.8 2.0-12.0 [facility]SgfuuadBITHNFBNQN1851-98-74 08:54:00 Test Item Value Reference Range Interpretation Comments Eosinophils (test code = 0.0 See_Comment [A utomated message] The Eosinophils) system which ge nerated this result tra nsmitted reference range : <=4.0. The reference r xu was not used to int erpret this result as normal/abnormal . [facility]GuqunszTEFHPHQOOM0856-43-44 08:54:00 Test Item Value Reference Range Interpretation Comments Basophils (test code = 0.3 See_Comment [Aut omated message] The Basophils) system which ge nerated this result tra nsmitted reference range : <=1.0. The reference r xu was not used to int erpret this result as normal/abnormal . [place] 594266-05-19 08:54:00 Test Item Value Reference Range Interpretation Comments MPV (test code = MPV) 8.0 7.4-10.4 [facility]MlbvqxnXKCPWZEGRP5004-17-03 08:54:00 Test Item Value Reference Range Interpretation Comments RDW (test code = RDW) 15.7 11.5-14.5 [facility]GzzmyoqYZBRDEMGNW2442-81-39 08:54:00 Test Item Value Reference Range Interpretation Comments Platelet (test code = Platelet) 161 133-450 [facility]GyvfpbnJHIFECATAV2679-60-77 08:54:00 Test Item Value Reference Range Interpretation Comments MCHC (test code = MCHC) 32.2 32.0-36.0 [facility]nfpwswIEOYDDHOLL3753-[facility]-19 08:54:00 Test Item Value Reference Range Interpretation Comments MCH (test code = MCH) 28.6 pg 27.0-31.0 [facility]PzcylgcUWHSFFKHWG5897-19-63 08:54:00 Test Item Value Reference Range Interpretation Comments Hct (test code = Hct) 34.3 36.0-48.0 [facility]LbnsukcFOYIBIPKKZ1717-96-96 08:54:00 Test Item Value Reference Range Interpretation Comments MCV (test code = MCV) 88.7 80.0-98.0 [facility]KuhszdwBBBBVWDKLB1156-85-79 08:54:00 Test Item Value Reference Range Interpretation Comments RBC (test code = RBC) 3.86 4.20-5.40 [facility]WmoxctoKAGGWBEAEA2907-51-17 08:54:00 Test Item Value Reference Range Interpretation Comments Hgb (test code = Hgb) 11.0 12.0-16.0 [facility]MdcoktmJIUVXEGZRW7247-75-56 08:54:00 Test Item Value Reference Range Interpretation Comments WBC (test code = WBC) 5.5 3.7-10.4 [facility] [id number] 08:54:00 Test Item Value Reference Range Interpretation Comments Total CK (test code = Total CK) 80 12-191 [facility] KZVTADE2225-98-45 08:54:00 Test Item Value Reference Range Interpretation Comments Troponin-I (test code no gt See_Comment [Auto mated message] The = Troponin-I) system which g enerated this result transmit yue reference range : <=0.40. The reference r xu was not used to interpr et this result as sera l/abnormal. [facility] VPEEKCB7084-59-65 08:54:00 Test Item Value Reference Range Interpretation Comments CK MB Index (test 0.9 See_Comment [Automate d message] The code = CK MB Index) system w [facility] generated this result transmit yue reference range : <=2.5. The reference range was not used to interpr et this result as sera l/abnormal. [facility] [id number] 08:54:00 Test Item Value Reference Range Interpretation Comments CK MB (test code = CK MB) 0.7 0.5-3.6 [facility] [id number] 08:54:00 Test Item Value Reference Range Interpretation Comments eGFR (test code = eGFR) 57 [facility] [id number] 08:54:00 Test Item Value Reference Range Interpretation Comments AGAP (test code = AGAP) 12.5 10.0-20.0 [facility] [id number] 08:54:00 Test Item Value Reference Range Interpretation Comments Calcium Lvl (test code = Calcium Lvl) 8.6 8.5-10.5 [facility] [employer] [id number] 08:54:00 Test Item Value Reference Range Interpretation Comments Glucose Lvl (test code = Glucose Lvl) 82 70-99 [facility] [id number] 08:54:00 Test Item Value Reference Range Interpretation Comments BUN (test code = BUN) 12 7-22 [facility] [id number] 08:54:00 Test Item Value Reference Range Interpretation Comments Sodium Lvl (test code = Sodium Lvl) 144 135-145 [facility] [id number] 08:54:00 Test Item Value Reference Range Interpretation Comments CO2 (test code = CO2) 26 24-32 [facility] [id number] 08:54:00 Test Item Value Reference Range Interpretation Comments Potassium Lvl (test code = Potassium 3.5 3.5-5.1 Lvl) [facility] [id number] 08:54:00 Test Item Value Reference Range Interpretation Comments Chloride Lvl (test code = Chloride Lvl) 109 95-109 [facility]2016-05-19 08:54:00 Test Item Value Reference Range Interpretation Comments Creatinine Lvl (test code = Creatinine 1.10 0.50-1.40 Lvl) [facility]GvcxgkdLWDTWRZXID2747-55-94 08:54:00 Test Item Value Reference Range Interpretation Comments Segs (test code = Segs) 58.5 45.0-75.0 [facility]AeeufhiEMOSVQELVJ1980-83-77 08:54:00 Test Item Value Reference Range Interpretation Comments Lymphocytes (test code = Lymphocytes) 31.4 20.0-40.0 [facility]EqvebmqUMHVJCJZEJ3447-05-78 08:54:00 Test Item Value Reference Range Interpretation Comments Lymphocytes # (test code = Lymphocytes 1.7 1.0-5.5 #) [facility]OpvxprgBAFWNXPQHJ1599-54-34 08:54:00 Test Item Value Reference Range Interpretation Comments Segs-Bands # (test code = Segs-Bands #) 3.2 1.5-8.1 [facility]VcivnrgFYPHKHEGIZ5831-28-66 08:54:00 Test Item Value Reference Range Interpretation Comments Eosinophils # (test code 0.0 See_Comment [A utomated message] The = Eosinophils #) system whic h generated this result tra nsmitted reference range : <=0.5. The reference r xu was not used to int erpret this result as normal/abnormal . [facility]StjzcpkVYQTFMTCLV9212-17-60 08:54:00 Test Item Value Reference Range Interpretation Comments Monocytes # (test code 0.5 See_Comment [Aut omated message] The = Monocytes #) system which generated this result tra nsmitted reference range : <=0.8. The reference r xu was not used to int erpret this result as normal/abnormal . [facility]CjekftsSLHQAVZIZK2320-01-95 08:54:00 Test Item Value Reference Range Interpretation Comments Basophils # (test code 0.0 See_Comment [Aut omated message] The = Basophils #) system which generated this result tra nsmitted reference range : <=0.2. The reference r xu was not used to int erpret this result as normal/abnormal . [facility]DebzveeONMNUUPWMI5060-43-38 08:54:00 Test Item Value Reference Range Interpretation Comments Monocytes (test code = Monocytes) 9.8 2.0-12.0 [facility]UwtpdjuEZRPVUBDIB4220-09-22 08:54:00 Test Item Value Reference Range Interpretation Comments Eosinophils (test code = 0.0 See_Comment [A utomated message] The Eosinophils) system which ge nerated this result tra nsmitted reference range : <=4.0. The reference r xu was not used to int erpret this result as normal/abnormal . [facility]LiuqvmqOEADQKOBWA0527-11-73 08:54:00 Test Item Value Reference Range Interpretation Comments Basophils (test code = 0.3 See_Comment [Aut omated message] The Basophils) system which ge nerated this result tra nsmitted reference range : <=1.0. The reference r xu was not used to int erpret this result as normal/abnormal . [facility]EvqgaenSWBSABEWFJ5092-60-79 08:54:00 Test Item Value Reference Range Interpretation Comments MPV (test code = MPV) 8.0 7.4-10.4 [facility]AearfisNHNCSRYOOU2955-00-83 08:54:00 Test Item Value Reference Range Interpretation Comments RDW (test code = RDW) 15.7 11.5-14.5 [facility]KodknpiSHDQXWIGOZ9574-49-87 08:54:00 Test Item Value Reference Range Interpretation Comments Platelet (test code = Platelet) 161 133-450 [facility]VtyvopeIBQIKWIRAP5137-13-68 08:54:00 Test Item Value Reference Range Interpretation Comments MCHC (test code = MCHC) 32.2 32.0-36.0 [facility]NiszbspCPGPFSGGQF1531-92-95 08:54:00 Test Item Value Reference Range Interpretation Comments MCH (test code = MCH) 28.6 pg 27.0-31.0 [facility]GshqfzvTLOOTKIVMQ2510-06-45 08:54:00 Test Item Value Reference Range Interpretation Comments Hct (test code = Hct) 34.3 36.0-48.0 [facility]JpxoyzxUSFXQZKQBC0515-01-14 08:54:00 Test Item Value Reference Range Interpretation Comments MCV (test code = MCV) 88.7 80.0-98.0 [facility]IhwvwddHFYWDOUFYV9735-66-25 08:54:00 Test Item Value Reference Range Interpretation Comments RBC (test code = RBC) 3.86 4.20-5.40 [facility]JkxnhowNRUMXHWIWK4957-03-64 08:54:00 Test Item Value Reference Range Interpretation Comments Hgb (test code = Hgb) 11.0 12.0-16.0 [facility] CenterPqnzaqsPMMXCARRAK7119-97-04 08:54:00 Test Item Value Reference Range Interpretation Comments WBC (test code = WBC) 5.5 3.7-10.4 [facility] CSBXAXZ9028-15-58 08:54:00 Test Item Value Reference Range Interpretation Comments Total CK (test code = Total CK) 80 12-191 [facility] YDHSVUQ5644-30-89 08:54:00 Test Item Value Reference Range Interpretation Comments Troponin-I (test code no gt See_Comment [Auto mated message] The = Troponin-I) system which g enerated this result transmit yue reference range : <=0.40. The reference r xu was not used to interpr et this result as sera l/abnormal. [facility] [id number] 08:54:00 Test Item Value Reference Range Interpretation Comments CK MB Index (test 0.9 See_Comment [Automate d message] The code = CK MB Index) system w [facility] generated this result transmit yue reference range : <=2.5. The reference range was not used to interpr et this result as sera l/abnormal. [facility] KKUCHGP9360-57-02 08:54:00 Test Item Value Reference Range Interpretation Comments CK MB (test code = CK MB) 0.7 0.5-3.6 [facility] [id number] 08:54:00 Test Item Value Reference Range Interpretation Comments eGFR (test code = eGFR) 57 [facility] JFPFJ9158-35-17 08:54:00 Test Item Value Reference Range Interpretation Comments AGAP (test code = AGAP) 12.5 10.0-20.0 [facility] [id number] 08:54:00 Test Item Value Reference Range Interpretation Comments Calcium Lvl (test code = Calcium Lvl) 8.6 8.5-10.5 [facility] [id number] 08:54:00 Test Item Value Reference Range Interpretation Comments Glucose Lvl (test code = Glucose Lvl) 82 70-99 [facility] [id number] 08:54:00 Test Item Value Reference Range Interpretation Comments BUN (test code = BUN) 12 7-22 [facility]2016-05-19 08:54:00 Test Item Value Reference Range Interpretation Comments Sodium Lvl (test code = Sodium Lvl) 144 135-145 [facility]2016-05-19 08:54:00 Test Item Value Reference Range Interpretation Comments CO2 (test code = CO2) 26 24-32 [facility]2016-05-19 08:54:00 Test Item Value Reference Range Interpretation Comments Potassium Lvl (test code = Potassium 3.5 3.5-5.1 Lvl) [facility]2016-05-19 08:54:00 Test Item Value Reference Range Interpretation Comments Chloride Lvl (test code = Chloride Lvl) 109 95-109 [facility]2016-05-19 08:54:00 Test Item Value Reference Range Interpretation Comments Creatinine Lvl (test code = Creatinine 1.10 0.50-1.40 Lvl) [facility]UformzsOVQYPUCYQQ7240-13-01 08:54:00 Test Item Value Reference Range Interpretation Comments Segs (test code = Segs) 58.5 45.0-75.0 [place] 594266-05-19 08:54:00 Test Item Value Reference Range Interpretation Comments Lymphocytes (test code = Lymphocytes) 31.4 20.0-40.0 [facility]VtwhcfnYEGNWOELQP5670-62-87 08:54:00 Test Item Value Reference Range Interpretation Comments Lymphocytes # (test code = Lymphocytes 1.7 1.0-5.5 #) [facility]JckfyahCVDGCYQUAC1076-40-59 08:54:00 Test Item Value Reference Range Interpretation Comments Segs-Bands # (test code = Segs-Bands #) 3.2 1.5-8.1 [facility]KbljzkkPLAPIORAIQ0426-15-09 08:54:00 Test Item Value Reference Range Interpretation Comments Eosinophils # (test code 0.0 See_Comment [A utomated message] The = Eosinophils #) system whic h generated this result tra nsmitted reference range : <=0.5. The reference r xu was not used to int erpret this result as normal/abnormal . [facility]XpdclqqPLGSVUQOZR4096-10-13 08:54:00 Test Item Value Reference Range Interpretation Comments Monocytes # (test code 0.5 See_Comment [Aut omated message] The = Monocytes #) system which generated this result tra nsmitted reference range : <=0.8. The reference r xu was not used to int erpret this result as normal/abnormal . [facility]ObxddixIXZUEOLKTX6604-04-25 08:54:00 Test Item Value Reference Range Interpretation Comments Basophils # (test code 0.0 See_Comment [Aut omated message] The = Basophils #) system which generated this result tra nsmitted reference range : <=0.2. The reference r xu was not used to int erpret this result as normal/abnormal . [facility]IdbubvcGCYXUAGFHR5657-85-81 08:54:00 Test Item Value Reference Range Interpretation Comments Monocytes (test code = Monocytes) 9.8 2.0-12.0 [facility]AdaooocYVONKKOUJB9800-97-55 08:54:00 Test Item Value Reference Range Interpretation Comments Eosinophils (test code = 0.0 See_Comment [A utomated message] The Eosinophils) system which ge nerated this result tra nsmitted reference range : <=4.0. The reference r xu was not used to int erpret this result as normal/abnormal . [facility]UcsowahBOORUQKGYU9407-32-90 08:54:00 Test Item Value Reference Range Interpretation Comments Basophils (test code = 0.3 See_Comment [Aut omated message] The Basophils) system which ge nerated this result tra nsmitted reference range : <=1.0. The reference r xu was not used to int erpret this result as normal/abnormal . [facility]KvadqzgCQKPNMBGWD1711-14-83 08:54:00 Test Item Value Reference Range Interpretation Comments MPV (test code = MPV) 8.0 7.4-10.4 [facility]DnpnrlaFPZGTKHNMK8532-22-02 08:54:00 Test Item Value Reference Range Interpretation Comments RDW (test code = RDW) 15.7 11.5-14.5 [facility]IwuoabmTPMBPQMXYM0023-74-94 08:54:00 Test Item Value Reference Range Interpretation Comments Platelet (test code = Platelet) 161 133-450 [facility]DmpdpimOLQPGIGJAO9670-95-63 08:54:00 Test Item Value Reference Range Interpretation Comments MCHC (test code = MCHC) 32.2 32.0-36.0 [facility]PaapgewSYOGVKCSSX8346-43-22 08:54:00 Test Item Value Reference Range Interpretation Comments MCH (test code = MCH) 28.6 pg 27.0-31.0 [facility] CenterZhrpukrVZZDGYUPTP5852-91-48 08:54:00 Test Item Value Reference Range Interpretation Comments Hct (test code = Hct) 34.3 36.0-48.0 [facility] CenterUvjfqdoGZJZRIQDFW2901-39-54 08:54:00 Test Item Value Reference Range Interpretation Comments MCV (test code = MCV) 88.7 80.0-98.0 [facility] HospitalKdafmtmLZGVHRFXZL4732-12-74 08:54:00 Test Item Value Reference Range Interpretation Comments RBC (test code = RBC) 3.86 4.20-5.40 [facility] CenterCwmcialNWIVSGQIRV0274-54-32 08:54:00 Test Item Value Reference Range Interpretation Comments Hgb (test code = Hgb) 11.0 12.0-16.0 [facility] CenterZbvrlsgSBBSSTEDJS3210-45-03 08:54:00 Test Item Value Reference Range Interpretation Comments WBC (test code = WBC) 5.5 3.7-10.4 [facility] CenterNthDegree Technologies World[employer] FCBIJDX1988-16-12 08:54:00 Test Item Value Reference Range Interpretation Comments Total CK (test code = Total CK) 80 12-191 [facility] CenterMirador BiomedicalAC NVRYUHI4540-10-66 08:54:00 Test Item Value Reference Range Interpretation Comments Troponin-I (test code no gt See_Comment [Auto mated message] The = Troponin-I) system which g enerated this result transmit yue reference range : <=0.40. The reference r xu was not used to interpr et this result as sera l/abnormal. [facility]2016-05-19 08:54:00 Test Item Value Reference Range Interpretation Comments CK MB Index (test 0.9 See_Comment [Automate d message] The code = CK MB Index) system w [facility] generated this result transmit yue reference range : <=2.5. The reference range was not used to interpr et this result as sera l/abnormal. [facility] [employer]2016-05-19 08:54:00 Test Item Value Reference Range Interpretation Comments CK MB (test code = CK MB) 0.7 0.5-3.6 [facility] [employer] [id number] 08:54:00 Test Item Value Reference Range Interpretation Comments eGFR (test code = eGFR) 57 [facility]2016-05-19 08:54:00 Test Item Value Reference Range Interpretation Comments AGAP (test code = AGAP) 12.5 10.0-20.0 [facility]2016-05-19 08:54:00 Test Item Value Reference Range Interpretation Comments Calcium Lvl (test code = Calcium Lvl) 8.6 8.5-10.5 [facility]2016-05-19 08:54:00 Test Item Value Reference Range Interpretation Comments Glucose Lvl (test code = Glucose Lvl) 82 70-99 [facility]2016-05-19 08:54:00 Test Item Value Reference Range Interpretation Comments BUN (test code = BUN) 12 7-22 [facility]2016-05-19 08:54:00 Test Item Value Reference Range Interpretation Comments Sodium Lvl (test code = Sodium Lvl) 144 135-145 [facility]2016-05-19 08:54:00 Test Item Value Reference Range Interpretation Comments CO2 (test code = CO2) 26 24-32 [facility]2016-05-19 08:54:00 Test Item Value Reference Range Interpretation Comments Potassium Lvl (test code = Potassium 3.5 3.5-5.1 Lvl) [facility]2016-05-19 08:54:00 Test Item Value Reference Range Interpretation Comments Chloride Lvl (test code = Chloride Lvl) 109 95-109 [facility]2016-05-19 08:54:00 Test Item Value Reference Range Interpretation Comments Creatinine Lvl (test code = Creatinine 1.10 0.50-1.40 Lvl) [facility]DwrysooYQWEPBRYWY4496-53-80 08:54:00 Test Item Value Reference Range Interpretation Comments Segs (test code = Segs) 58.5 45.0-75.0 [facility]GrplznmVTYMIZPLMT8537-02-80 08:54:00 Test Item Value Reference Range Interpretation Comments Lymphocytes (test code = Lymphocytes) 31.4 20.0-40.0 [facility]TbdiokbNQFLBROGQP2480-32-18 08:54:00 Test Item Value Reference Range Interpretation Comments Lymphocytes # (test code = Lymphocytes 1.7 1.0-5.5 #) [place] 594266-05-19 08:54:00 Test Item Value Reference Range Interpretation Comments Segs-Bands # (test code = Segs-Bands #) 3.2 1.5-8.1 [facility]StohueaLCTAXQJDPD0924-84-55 08:54:00 Test Item Value Reference Range Interpretation Comments Eosinophils # (test code 0.0 See_Comment [A utomated message] The = Eosinophils #) system whic h generated this result tra nsmitted reference range : <=0.5. The reference r xu was not used to int erpret this result as normal/abnormal . [facility]ThucuxdHODWKZZQRD3470-77-26 08:54:00 Test Item Value Reference Range Interpretation Comments Monocytes # (test code 0.5 See_Comment [Aut omated message] The = Monocytes #) system which generated this result tra nsmitted reference range : <=0.8. The reference r xu was not used to int erpret this result as normal/abnormal . [facility]WvnafewCSRULVPWSY6074-54-72 08:54:00 Test Item Value Reference Range Interpretation Comments Basophils # (test code 0.0 See_Comment [Aut omated message] The = Basophils #) system which generated this result tra nsmitted reference range : <=0.2. The reference r xu was not used to int erpret this result as normal/abnormal . [facility]ZsbmtpgWJCYCFUFDM2481-36-70 08:54:00 Test Item Value Reference Range Interpretation Comments Monocytes (test code = Monocytes) 9.8 2.0-12.0 [facility]FvbimriPZACNVWIPH2926-44-97 08:54:00 Test Item Value Reference Range Interpretation Comments Eosinophils (test code = 0.0 See_Comment [A utomated message] The Eosinophils) system which ge nerated this result tra nsmitted reference range : <=4.0. The reference r xu was not used to int erpret this result as normal/abnormal . [facility]ZxvipwuNREPZSQKJZ1065-41-38 08:54:00 Test Item Value Reference Range Interpretation Comments Basophils (test code = 0.3 See_Comment [Aut omated message] The Basophils) system which ge nerated this result tra nsmitted reference range : <=1.0. The reference r xu was not used to int erpret this result as normal/abnormal . [facility]LqpnybnHGADWZVAWO8095-38-84 08:54:00 Test Item Value Reference Range Interpretation Comments MPV (test code = MPV) 8.0 7.4-10.4 [facility]MbworvuFHQDKHWLEC5532-19-17 08:54:00 Test Item Value Reference Range Interpretation Comments RDW (test code = RDW) 15.7 11.5-14.5 [facility]UovtlitTAAMLAIRLH7947-59-93 08:54:00 Test Item Value Reference Range Interpretation Comments Platelet (test code = Platelet) 161 133-450 [facility]FnxtodnRLTJWDUYZI8285-66-02 08:54:00 Test Item Value Reference Range Interpretation Comments MCHC (test code = MCHC) 32.2 32.0-36.0 [facility]CsnzphdRUQMGIXAOU8134-33-68 08:54:00 Test Item Value Reference Range Interpretation Comments MCH (test code = MCH) 28.6 pg 27.0-31.0 [facility]PhusxpqJQWLDGSOCV3902-03-72 08:54:00 Test Item Value Reference Range Interpretation Comments Hct (test code = Hct) 34.3 36.0-48.0 [facility]QmfwuqvAVONCKCUSO5893-42-02 08:54:00 Test Item Value Reference Range Interpretation Comments MCV (test code = MCV) 88.7 80.0-98.0 [facility]FtpaysaLIOLNQAECJ8098-41-10 08:54:00 Test Item Value Reference Range Interpretation Comments RBC (test code = RBC) 3.86 4.20-5.40 [facility]PpwbtvxWGUQJXEJJS1608-86-00 08:54:00 Test Item Value Reference Range Interpretation Comments Hgb (test code = Hgb) 11.0 12.0-16.0 [facility]HealthGyeumegCTGRPIQECU8115-13-59 08:54:00 Test Item Value Reference Range Interpretation Comments WBC (test code = WBC) 5.5 3.7-10.4 [facility] OPSXZHA9768-43-25 08:54:00 Test Item Value Reference Range Interpretation Comments Total CK (test code = Total CK) 80 12-191 [facility] JDTILVL4135-61-46 08:54:00 Test Item Value Reference Range Interpretation Comments Troponin-I (test code no gt See_Comment [Auto mated message] The = Troponin-I) system which g enerated this result transmit yue reference range : <=0.40. The reference r xu was not used to interpr et this result as sera l/abnormal. [facility] [employer]2016-05-19 08:54:00 Test Item Value Reference Range Interpretation Comments CK MB Index (test 0.9 See_Comment [Automate d message] The code = CK MB Index) system w [facility] generated this result transmit yue reference range : <=2.5. The reference range was not used to interpr et this result as sera l/abnormal. [facility] [employer]2016-05-19 08:54:00 Test Item Value Reference Range Interpretation Comments CK MB (test code = CK MB) 0.7 0.5-3.6 [facility] [employer]2016-05-19 08:54:00 Test Item Value Reference Range Interpretation Comments eGFR (test code = eGFR) 57 [facility] CenterFlypayXQFPH1506-79-98 08:54:00 Test Item Value Reference Range Interpretation Comments AGAP (test code = AGAP) 12.5 10.0-20.0 [facility] [employer]2016-05-19 08:54:00 Test Item Value Reference Range Interpretation Comments Calcium Lvl (test code = Calcium Lvl) 8.6 8.5-10.5 [facility] [employer]2016-05-19 08:54:00 Test Item Value Reference Range Interpretation Comments Glucose Lvl (test code = Glucose Lvl) 82 70-99 [facility] [employer]2016-05-19 08:54:00 Test Item Value Reference Range Interpretation Comments BUN (test code = BUN) 12 7-22 [facility] [employer]2016-05-19 08:54:00 Test Item Value Reference Range Interpretation Comments Sodium Lvl (test code = Sodium Lvl) 144 135-145 [facility] [employer]2016-05-19 08:54:00 Test Item Value Reference Range Interpretation Comments CO2 (test code = CO2) 26 24-32 [facility] [employer]2016-05-19 08:54:00 Test Item Value Reference Range Interpretation Comments Potassium Lvl (test code = Potassium 3.5 3.5-5.1 Lvl) [facility] [employer]2016-05-19 08:54:00 Test Item Value Reference Range Interpretation Comments Chloride Lvl (test code = Chloride Lvl) 109 95-109 [facility] [employer]2016-05-19 03:21:00 Test Item Value Reference Range Interpretation Comments CK MB Index (test 0.9 See_Comment [Automate d message] The code = CK MB Index) system w [employer] generated this result transmit yue reference range : <=2.5. The reference range was not used to interpr et this result as sera l/abnormal. [facility] [employer]2016-05-19 03:21:00 Test Item Value Reference Range Interpretation Comments CK MB (test code = CK MB) 0.7 0.5-3.6 [facility] [employer]2016-05-19 03:21:00 Test Item Value Reference Range Interpretation Comments Troponin-I (test code no gt See_Comment [Auto mated message] The = Troponin-I) system which g enerated this result transmit yue reference range : <=0.40. The reference r xu was not used to interpr et this result as sera l/abnormal. [facility] [employer]2016-05-19 03:21:00 Test Item Value Reference Range Interpretation Comments Total CK (test code = Total CK) 82 12191 [facility] [employer]2016-05-19 03:21:00 Test Item Value Reference Range Interpretation Comments CK MB Index (test 0.9 See_Comment [Automate d message] The code = CK MB Index) system w [employer] generated this result transmit yue reference range : <=2.5. The reference range was not used to interpr et this result as sera l/abnormal. [facility] [employer]2016-05-19 03:21:00 Test Item Value Reference Range Interpretation Comments CK MB (test code = CK MB) 0.7 0.5-3.6 [facility] [employer]2016-05-19 03:21:00 Test Item Value Reference Range Interpretation Comments Troponin-I (test code no gt See_Comment [Auto mated message] The = Troponin-I) system which g enerated this result transmit yue reference range : <=0.40. The reference r xu was not used to interpr et this result as sera l/abnormal. [employer]2016-05-19 03:21:00 Test Item Value Reference Range Interpretation Comments Total CK (test code = Total CK) 82 12-191 [facility] [employer]2016-05-19 03:21:00 Test Item Value Reference Range Interpretation Comments CK MB Index (test 0.9 See_Comment [Automate d message] The code = CK MB Index) system w [employer] generated this result transmit yue reference range : <=2.5. The reference range was not used to interpr et this result as sera l/abnormal. [facility] [employer]2016-05-19 03:21:00 Test Item Value Reference Range Interpretation Comments CK MB (test code = CK MB) 0.7 0.5-3.6 [facility] [employer]2016-05-19 03:21:00 Test Item Value Reference Range Interpretation Comments Troponin-I (test code no gt See_Comment [Auto mated message] The = Troponin-I) system which g enerated this result transmit yue reference range : <=0.40. The reference r xu was not used to interpr et this result as sera l/abnormal. [facility] [employer]2016-05-19 03:21:00 Test Item Value Reference Range Interpretation Comments Total CK (test code = Total CK) 82 191 [facility]00 Test Item Value Reference Range Interpretation Comments CK MB Index (test 0.9 See_Comment [Automate d message] The code = CK MB Index) system w [employer] generated this result transmit yue reference range : <=2.5. The reference range was not used to interpr et this result as sera l/abnormal. [facility] [employer]2016-05-19 03:21:00 Test Item Value Reference Range Interpretation Comments CK MB (test code = CK MB) 0.7 0.5-3.6 [facility] [employer]2016-05-19 03:21:00 Test Item Value Reference Range Interpretation Comments Troponin-I (test code no gt See_Comment [Auto mated message] The = Troponin-I) system which g enerated this result transmit yue reference range : <=0.40. The reference r xu was not used to interpr et this result as sera l/abnormal. [employer]2016-05-19 03:21:00 Test Item Value Reference Range Interpretation Comments Total CK (test code = Total CK) 82 12-191 [facility] [employer]2016-05-19 03:21:00 Test Item Value Reference Range Interpretation Comments CK MB Index (test 0.9 See_Comment [Automate d message] The code = CK MB Index) system w [employer] generated this result transmit yue reference range : <=2.5. The reference range was not used to interpr et this result as sera l/abnormal. [facility] [employer]2016-05-19 03:21:00 Test Item Value Reference Range Interpretation Comments CK MB (test code = CK MB) 0.7 0.5-3.6 [facility] [employer]2016-05-19 03:21:00 Test Item Value Reference Range Interpretation Comments Troponin-I (test code no gt See_Comment [Auto mated message] The = Troponin-I) system which g enerated this result transmit yue reference range : <=0.40. The reference r xu was not used to interpr et this result as sera l/abnormal. [facility] [employer]2016-05-19 03:21:00 Test Item Value Reference Range Interpretation Comments Total CK (test code = Total CK) 82 12-191 [facility] [employer]2016-05-19 03:21:00 Test Item Value Reference Range Interpretation Comments CK MB Index (test 0.9 See_Comment [Automate d message] The code = CK MB Index) system [employer] generated this result transmit yue reference range : <=2.5. The reference range was not used to interpr et this result as sera l/abnormal. [facility] [employer]2016-05-19 03:21:00 Test Item Value Reference Range Interpretation Comments CK MB (test code = CK MB) 0.7 0.5-3.6 [facility] [employer]2016-05-19 03:21:00 Test Item Value Reference Range Interpretation Comments Troponin-I (test code no gt See_Comment [Auto mated message] The = Troponin-I) system which g enerated this result transmit yue reference range : <=0.40. The reference r xu was not used to interpr et this result as sera l/abnormal. [employer] [id number] 03:21:00 Test Item Value Reference Range Interpretation Comments Total CK (test code = Total CK) 82 12-191 [facility] [employer]2016-05-19 03:21:00 Test Item Value Reference Range Interpretation Comments CK MB Index (test 0.9 See_Comment [Automate d message] The code = CK MB Index) system w [employer] generated this result transmit yue reference range : <=2.5. The reference range was not used to interpr et this result as sera l/abnormal. [facility] [employer]2016-05-19 03:21:00 Test Item Value Reference Range Interpretation Comments CK MB (test code = CK MB) 0.7 0.5-3.6 [facility] [employer]2016-05-19 03:21:00 Test Item Value Reference Range Interpretation Comments Troponin-I (test code no gt See_Comment [Auto mated message] The = Troponin-I) system which g enerated this result transmit yue reference range : <=0.40. The reference r xu was not used to interpr et this result as sera l/abnormal. [facility] [employer]2016-05-19 03:21:00 Test Item Value Reference Range Interpretation Comments Total CK (test code = Total CK) 82 12-191 [facility] [employer]2016-05-19 03:21:00 Test Item Value Reference Range Interpretation Comments CK MB Index (test 0.9 See_Comment [Automate d message] The code = CK MB Index) system w [employer] generated this result transmit yue reference range : <=2.5. The reference range was not used to interpr et this result as sera l/abnormal. [facility] [employer]2016-05-19 03:21:00 Test Item Value Reference Range Interpretation Comments CK MB (test code = CK MB) 0.7 0.5-3.6 [facility] [employer]2016-05-19 03:21:00 Test Item Value Reference Range Interpretation Comments Troponin-I (test code no gt See_Comment [Auto mated message] The = Troponin-I) system which g enerated this result transmit yue reference range : <=0.40. The reference r xu was not used to interpr et this result as sera l/abnormal. [employer]2016-05-19 03:21:00 Test Item Value Reference Range Interpretation Comments Total CK (test code = Total CK) 82 12-191 [facility] [id number] 03:21:00 Test Item Value Reference Range Interpretation Comments CK MB Index (test 0.9 See_Comment [Automate d message] The code = CK MB Index) system w hich generated this result transmit yue reference range : <=2.5. The reference range was not used to interpr et this result as sera l/abnormal. [facility] [id number] 03:21:00 Test Item Value Reference Range Interpretation Comments CK MB (test code = CK MB) 0.7 0.5-3.6 [facility] [id number] 03:21:00 Test Item Value Reference Range Interpretation Comments Troponin-I (test code no gt See_Comment [Auto mated message] The = Troponin-I) system which g enerated this result transmit yue reference range : <=0.40. The reference r xu was not used to interpr et this result as sera l/abnormal. [facility] [employer] SecurityCARNXVISIONAC [id number] 03:21:00 Test Item Value Reference Range Interpretation Comments Total CK (test code = Total CK) 82 [address] [facility] AND [id number] 22:05:00 Test Item Value Reference Range Interpretation Comments UA Turbidity (test code Slight Cloudy = UA Turbidity) (09/25/15 5:05 PM) [facility] [employer] AND [id number] 22:05:00 Test Item Value Reference Range Interpretation Comments UA pH (test code = UA pH) 6.0 1 5.0-8.0 [facility] [employer] AND [id number] 22:05:00 Test Item Value Reference Range Interpretation Comments UA Spec Grav (test >=1.030 *ABN*(09/25/15 code = UA Spec Grav) 5:05 PM) [facility] [id number] 22:05:00 Test Item Value Reference Range Interpretation Comments UA Protein (test code = Trace *ABN*(09/25/15 UA Protein) 5:05 PM) [facility] [employer] AND [id number] 22:05:00 Test Item Value Reference Range Interpretation Comments UA Leuk Est (test code Trace *ABN*(09/25/15 = UA Leuk Est) 5:05 PM) [facility] AND [id number] 22:05:00 Test Item Value Reference Range Interpretation Comments UA Nitrite (test code Negative (09/25/15 5:05 = UA Nitrite) PM) [facility] AND [id number] 22:05:00 Test Item Value Reference Range Interpretation Comments UA WBC (test code = UA WBC) 3-5 /HPF [facility] AND [id number] 22:05:00 Test Item Value Reference Range Interpretation Comments UA Sq Epi (test code = UA Sq Epi) Few /LPF [facility] AND [id number] 22:05:00 Test Item Value Reference Range Interpretation Comments UA Blood (test code = Negative (09/25/15 5:05 UA Blood) PM) [facility] AND [id number] 22:05:00 Test Item Value Reference Range Interpretation Comments UA RBC (test code = 0-2 /HPF See_Comment [Automa yue message] The UA RBC) system which ge nerated this result tra nsmitted reference range : <=2. The reference range was not used to interpr et this result as sera l/abnormal. [facility] AND [id number] 22:05:00 Test Item Value Reference Range Interpretation Comments UA Glucose (test code Negative (09/25/15 5:05 = UA Glucose) PM) [facility] AND [id number] 22:05:00 Test Item Value Reference Range Interpretation Comments UA Urobilinogen (test code = UA 0.2 0.1-1.0 Urobilinogen) [facility] AND [id number] 22:05:00 Test Item Value Reference Range Interpretation Comments UA Ketones (test code Negative *NA*(09/25/15 = UA Ketones) 5:05 PM) [facility] AND [id number] 22:05:00 Test Item Value Reference Range Interpretation Comments UA Bili (test code = Small *ABN*(09/25/15 UA Bili) 5:05 PM) [facility] AND [id number] 22:05:00 Test Item Value Reference Range Interpretation Comments UA Color (test code = Yellow *NA*(09/25/15 UA Color) 5:05 PM) [facility] AND [id number] 22:05:00 Test Item Value Reference Range Interpretation Comments UA Mucus (test code = UA Mucus) Moderate /LPF [facility] AND [id number] 22:05:00 Test Item Value Reference Range Interpretation Comments UA Bacteria (test code = UA Few /HPF Bacteria) [facility] AND [id number] 22:05:00 Test Item Value Reference Range Interpretation Comments UA Hyal Cast 6-10 (09/25/15 See_Comment [Automated me ssage] (test code = UA 5:05 PM) The system w [employer] Hyal Cast) generated this result transmitted ref erence range: <=2. The reference range was not used to int erpret this result as normal/abnormal . [facility] AND [id number] 22:05:00 Test Item Value Reference Range Interpretation Comments UA Turbidity (test code Slight Cloudy = UA Turbidity) (09/25/15 5:05 PM) [facility] AND [id number] 22:05:00 Test Item Value Reference Range Interpretation Comments UA pH (test code = UA pH) 6.0 1 5.0-8.0 [facility] AND [id number] 22:05:00 Test Item Value Reference Range Interpretation Comments UA Spec Grav (test >=1.030 *ABN*(09/25/15 code = UA Spec Grav) 5:05 PM) [facility] AND [id number] 22:05:00 Test Item Value Reference Range Interpretation Comments UA Protein (test code = Trace *ABN*(09/25/15 UA Protein) 5:05 PM) [facility] AND [id number] 22:05:00 Test Item Value Reference Range Interpretation Comments UA Leuk Est (test code Trace *ABN*(09/25/15 = UA Leuk Est) 5:05 PM) [facility] AND [id number] 22:05:00 Test Item Value Reference Range Interpretation Comments UA Nitrite (test code Negative (09/25/15 5:05 = UA Nitrite) PM) [facility] AND [id number] 22:05:00 Test Item Value Reference Range Interpretation Comments UA WBC (test code = UA WBC) 3-5 /HPF [facility] AND [id number] 22:05:00 Test Item Value Reference Range Interpretation Comments UA Sq Epi (test code = UA Sq Epi) Few /LPF [facility] AND [id number] 22:05:00 Test Item Value Reference Range Interpretation Comments UA Blood (test code = Negative (09/25/15 5:05 UA Blood) PM) [facility] AND [id number] 22:05:00 Test Item Value Reference Range Interpretation Comments UA RBC (test code = 0-2 /HPF See_Comment [Automa yue message] The UA RBC) system which ge nerated this result tra nsmitted reference range : <=2. The reference range was not used to interpr et this result as sera l/abnormal. [facility] AND [id number] 22:05:00 Test Item Value Reference Range Interpretation Comments UA Glucose (test code Negative (09/25/15 5:05 = UA Glucose) PM) [facility] AND [id number] 22:05:00 Test Item Value Reference Range Interpretation Comments UA Urobilinogen (test code = UA 0.2 0.1-1.0 Urobilinogen) [facility] AND [id number] 22:05:00 Test Item Value Reference Range Interpretation Comments UA Ketones (test code Negative *NA*(09/25/15 = UA Ketones) 5:05 PM) [facility] AND [id number] 22:05:00 Test Item Value Reference Range Interpretation Comments UA Bili (test code = Small *ABN*(09/25/15 UA Bili) 5:05 PM) [facility] AND [id number] 22:05:00 Test Item Value Reference Range Interpretation Comments UA Color (test code = Yellow *NA*(09/25/15 UA Color) 5:05 PM) [facility] AND [id number] 22:05:00 Test Item Value Reference Range Interpretation Comments UA Mucus (test code = UA Mucus) Moderate /LPF [facility] AND [id number] 22:05:00 Test Item Value Reference Range Interpretation Comments UA Bacteria (test code = UA Few /HPF Bacteria) [facility] AND [id number] 22:05:00 Test Item Value Reference Range Interpretation Comments UA Hyal Cast 6-10 (09/25/15 See_Comment [Automated me ssage] (test code = UA 5:05 PM) The system w [facility] Hyal Cast) generated this result transmitted ref erence range: <=2. The reference range was not used to int erpret this result as normal/abnormal . [facility] AND [id number] 22:05:00 Test Item Value Reference Range Interpretation Comments UA Turbidity (test code Slight Cloudy = UA Turbidity) (09/25/15 5:05 PM) [facility] AND [id number] 22:05:00 Test Item Value Reference Range Interpretation Comments UA pH (test code = UA pH) 6.0 1 5.0-8.0 [facility] AND [id number] 22:05:00 Test Item Value Reference Range Interpretation Comments UA Spec Grav (test >=1.030 *ABN*(09/25/15 code = UA Spec Grav) 5:05 PM) [facility] AND [id number] 22:05:00 Test Item Value Reference Range Interpretation Comments UA Protein (test code = Trace *ABN*(09/25/15 UA Protein) 5:05 PM) [facility] AND [id number] 22:05:00 Test Item Value Reference Range Interpretation Comments UA Leuk Est (test code Trace *ABN*(09/25/15 = UA Leuk Est) 5:05 PM) [facility] AND [id number] 22:05:00 Test Item Value Reference Range Interpretation Comments UA Nitrite (test code Negative (09/25/15 5:05 = UA Nitrite) PM) [facility] AND [id number] 22:05:00 Test Item Value Reference Range Interpretation Comments UA WBC (test code = UA WBC) 3-5 /HPF [facility] AND [id number] 22:05:00 Test Item Value Reference Range Interpretation Comments UA Sq Epi (test code = UA Sq Epi) Few /LPF [facility] AND [id number] 22:05:00 Test Item Value Reference Range Interpretation Comments UA Blood (test code = Negative (09/25/15 5:05 UA Blood) PM) [facility] AND [id number] 22:05:00 Test Item Value Reference Range Interpretation Comments UA RBC (test code = 0-2 /HPF See_Comment [Automa yue message] The UA RBC) system which ge nerated this result tra nsmitted reference range : <=2. The reference range was not used to interpr et this result as sera l/abnormal. [facility] [id number] 22:05:00 Test Item Value Reference Range Interpretation Comments UA Glucose (test code Negative (09/25/15 5:05 = UA Glucose) PM) [facility] AND [id number] 22:05:00 Test Item Value Reference Range Interpretation Comments UA Urobilinogen (test code = UA 0.2 0.1-1.0 Urobilinogen) [facility] AND [id number] 22:05:00 Test Item Value Reference Range Interpretation Comments UA Ketones (test code Negative *NA*(09/25/15 = UA Ketones) 5:05 PM) [facility] AND [id number] 22:05:00 Test Item Value Reference Range Interpretation Comments UA Bili (test code = Small *ABN*(09/25/15 UA Bili) 5:05 PM) [facility] AND [id number] 22:05:00 Test Item Value Reference Range Interpretation Comments UA Color (test code = Yellow *NA*(09/25/15 UA Color) 5:05 PM) [facility] AND [id number] 22:05:00 Test Item Value Reference Range Interpretation Comments UA Mucus (test code = UA Mucus) Moderate /LPF [facility] AND [id number] 22:05:00 Test Item Value Reference Range Interpretation Comments UA Bacteria (test code = UA Few /HPF Bacteria) [facility] AND [id number] 22:05:00 Test Item Value Reference Range Interpretation Comments UA Hyal Cast 6-10 (09/25/15 See_Comment [Automated me ssage] (test code = UA 5:05 PM) The system w hich [employer]) generated this result transmitted ref erence range: <=2. The reference range was not used to int erpret this result as normal/abnormal . [facility] [id number] 22:05:00 Test Item Value Reference Range Interpretation Comments UA Turbidity (test code Slight Cloudy = UA Turbidity) (09/25/15 5:05 PM) [facility] AND [id number] 22:05:00 Test Item Value Reference Range Interpretation Comments UA pH (test code = UA pH) 6.0 1 5.0-8.0 [facility] AND [id number] 22:05:00 Test Item Value Reference Range Interpretation Comments UA Spec Grav (test >=1.030 *ABN*(09/25/15 code = UA Spec Grav) 5:05 PM) [facility] AND [id number] 22:05:00 Test Item Value Reference Range Interpretation Comments UA Protein (test code = Trace *ABN*(09/25/15 UA Protein) 5:05 PM) [facility] AND [id number] 22:05:00 Test Item Value Reference Range Interpretation Comments UA Leuk Est (test code Trace *ABN*(09/25/15 = UA Leuk Est) 5:05 PM) [facility] AND [id number] 22:05:00 Test Item Value Reference Range Interpretation Comments UA Nitrite (test code Negative (09/25/15 5:05 = UA Nitrite) PM) [facility] AND [id number] 22:05:00 Test Item Value Reference Range Interpretation Comments UA WBC (test code = UA WBC) 3-5 /HPF [facility] AND [id number] 22:05:00 Test Item Value Reference Range Interpretation Comments UA Sq Epi (test code = UA Sq Epi) Few /LPF [facility] AND [id number] 22:05:00 Test Item Value Reference Range Interpretation Comments UA Blood (test code = Negative (09/25/15 5:05 UA Blood) PM) [facility] AND [id number] 22:05:00 Test Item Value Reference Range Interpretation Comments UA RBC (test code = 0-2 /HPF See_Comment [Automa yue message] The UA RBC) system which ge nerated this result tra nsmitted reference range : <=2. The reference range was not used to interpr et this result as sera l/abnormal. [facility] AND [id number] 22:05:00 Test Item Value Reference Range Interpretation Comments UA Glucose (test code Negative (09/25/15 5:05 = UA Glucose) PM) [facility] AND [id number] 22:05:00 Test Item Value Reference Range Interpretation Comments UA Urobilinogen (test code = UA 0.2 0.1-1.0 Urobilinogen) [facility] AND [id number] 22:05:00 Test Item Value Reference Range Interpretation Comments UA Ketones (test code Negative *NA*(09/25/15 = UA Ketones) 5:05 PM) [facility] AND [id number] 22:05:00 Test Item Value Reference Range Interpretation Comments UA Bili (test code = Small *ABN*(09/25/15 UA Bili) 5:05 PM) [facility] AND [id number] 22:05:00 Test Item Value Reference Range Interpretation Comments UA Color (test code = Yellow *NA*(09/25/15 UA Color) 5:05 PM) [facility] AND [id number] 22:05:00 Test Item Value Reference Range Interpretation Comments UA Mucus (test code = UA Mucus) Moderate /LPF [facility] AND [id number] 22:05:00 Test Item Value Reference Range Interpretation Comments UA Bacteria (test code = UA Few /HPF Bacteria) [facility] AND [id number] 22:05:00 Test Item Value Reference Range Interpretation Comments UA Hyal Cast 6-10 (09/25/15 See_Comment [Automated me ssage] (test code = UA 5:05 PM) The system w [facility] [employer]) generated this result transmitted ref erence range: <=2. The reference range was not used to int erpret this result as normal/abnormal . [facility] AND [id number] 22:05:00 Test Item Value Reference Range Interpretation Comments UA Turbidity (test code Slight Cloudy = UA Turbidity) (09/25/15 5:05 PM) [facility] AND [id number] 22:05:00 Test Item Value Reference Range Interpretation Comments UA pH (test code = UA pH) 6.0 1 5.0-8.0 [facility] AND [id number] 22:05:00 Test Item Value Reference Range Interpretation Comments UA Spec Grav (test >=1.030 *ABN*(09/25/15 code = UA Spec Grav) 5:05 PM) [facility] AND [id number] 22:05:00 Test Item Value Reference Range Interpretation Comments UA Protein (test code = Trace *ABN*(09/25/15 UA Protein) 5:05 PM) [facility] AND [id number] 22:05:00 Test Item Value Reference Range Interpretation Comments UA Leuk Est (test code Trace *ABN*(09/25/15 = UA Leuk Est) 5:05 PM) [facility] AND [id number] 22:05:00 Test Item Value Reference Range Interpretation Comments UA Nitrite (test code Negative (09/25/15 5:05 = UA Nitrite) PM) [facility] AND [id number] 22:05:00 Test Item Value Reference Range Interpretation Comments UA WBC (test code = UA WBC) 3-5 /HPF [facility] AND [id number] 22:05:00 Test Item Value Reference Range Interpretation Comments UA Sq Epi (test code = UA Sq Epi) Few /LPF [facility] AND [id number] 22:05:00 Test Item Value Reference Range Interpretation Comments UA Blood (test code = Negative (09/25/15 5:05 UA Blood) PM) [facility] AND [id number] 22:05:00 Test Item Value Reference Range Interpretation Comments UA RBC (test code = 0-2 /HPF See_Comment [Automa yue message] The UA RBC) system which ge nerated this result tra nsmitted reference range : <=2. The reference range was not used to interpr et this result as sera l/abnormal. [facility] AND [id number] 22:05:00 Test Item Value Reference Range Interpretation Comments UA Glucose (test code Negative (09/25/15 5:05 = UA Glucose) PM) [facility] AND [id number] 22:05:00 Test Item Value Reference Range Interpretation Comments UA Urobilinogen (test code = UA 0.2 0.1-1.0 Urobilinogen) [facility] AND [id number] 22:05:00 Test Item Value Reference Range Interpretation Comments UA Ketones (test code Negative *NA*(09/25/15 = UA Ketones) 5:05 PM) [facility] [id number] 22:05:00 Test Item Value Reference Range Interpretation Comments UA Bili (test code = Small *ABN*(09/25/15 UA Bili) 5:05 PM) [facility] AND [id number] 22:05:00 Test Item Value Reference Range Interpretation Comments UA Color (test code = Yellow *NA*(09/25/15 UA Color) 5:05 PM) [facility] AND [id number] 22:05:00 Test Item Value Reference Range Interpretation Comments UA Mucus (test code = UA Mucus) Moderate /LPF [facility] AND [id number] 22:05:00 Test Item Value Reference Range Interpretation Comments UA Bacteria (test code = UA Few /HPF Bacteria) [facility] AND [id number] 22:05:00 Test Item Value Reference Range Interpretation Comments UA Hyal Cast 6-10 (09/25/15 See_Comment [Automated me ssage] (test code = UA 5:05 PM) The system w [facility] Hyal Cast) generated this result transmitted ref erence range: <=2. The reference range was not used to int erpret this result as normal/abnormal . [facility] AND [id number] 22:05:00 Test Item Value Reference Range Interpretation Comments UA Turbidity (test code Slight Cloudy = UA Turbidity) (09/25/15 5:05 PM) [facility] AND [id number] 22:05:00 Test Item Value Reference Range Interpretation Comments UA pH (test code = UA pH) 6.0 1 5.0-8.0 [facility] AND [id number] 22:05:00 Test Item Value Reference Range Interpretation Comments UA Spec Grav (test >=1.030 *ABN*(09/25/15 code = UA Spec Grav) 5:05 PM) [facility] AND [id number] 22:05:00 Test Item Value Reference Range Interpretation Comments UA Protein (test code = Trace *ABN*(09/25/15 UA Protein) 5:05 PM) [facility] AND [id number] 22:05:00 Test Item Value Reference Range Interpretation Comments UA Leuk Est (test code Trace *ABN*(09/25/15 = UA Leuk Est) 5:05 PM) [facility] AND [id number] 22:05:00 Test Item Value Reference Range Interpretation Comments UA Nitrite (test code Negative (09/25/15 5:05 = UA Nitrite) PM) [facility] AND [id number] 22:05:00 Test Item Value Reference Range Interpretation Comments UA WBC (test code = UA WBC) 3-5 /HPF [facility] AND [id number] 22:05:00 Test Item Value Reference Range Interpretation Comments UA Sq Epi (test code = UA Sq Epi) Few /LPF [facility] AND [id number] 22:05:00 Test Item Value Reference Range Interpretation Comments UA Blood (test code = Negative (09/25/15 5:05 UA Blood) PM) [facility] AND [id number] 22:05:00 Test Item Value Reference Range Interpretation Comments UA RBC (test code = 0-2 /HPF See_Comment [Automa yue message] The UA RBC) system which ge nerated this result tra nsmitted reference range : <=2. The reference range was not used to interpr et this result as sera l/abnormal. [facility] AND [id number] 22:05:00 Test Item Value Reference Range Interpretation Comments UA Glucose (test code Negative (09/25/15 5:05 = UA Glucose) PM) [facility] AND [id number] 22:05:00 Test Item Value Reference Range Interpretation Comments UA Urobilinogen (test code = UA 0.2 0.1-1.0 Urobilinogen) [facility] AND [id number] 22:05:00 Test Item Value Reference Range Interpretation Comments UA Ketones (test code Negative *NA*(09/25/15 = UA Ketones) 5:05 PM) [facility] AND [id number] 22:05:00 Test Item Value Reference Range Interpretation Comments UA Bili (test code = Small *ABN*(09/25/15 UA Bili) 5:05 PM) [facility] AND [id number] 22:05:00 Test Item Value Reference Range Interpretation Comments UA Color (test code = Yellow *NA*(09/25/15 UA Color) 5:05 PM) [facility] AND [id number] 22:05:00 Test Item Value Reference Range Interpretation Comments UA Mucus (test code = UA Mucus) Moderate /LPF [facility] AND [id number] 22:05:00 Test Item Value Reference Range Interpretation Comments UA Bacteria (test code = UA Few /HPF Bacteria) [facility] AND [id number] 22:05:00 Test Item Value Reference Range Interpretation Comments UA Hyal Cast 6-10 (09/25/15 See_Comment [Automated me ssage] (test code = UA 5:05 PM) The system w [employer] Hyal Cast) generated this result transmitted ref erence range: <=2. The reference range was not used to int erpret this result as normal/abnormal . [facility] AND [id number] 22:05:00 Test Item Value Reference Range Interpretation Comments UA Turbidity (test code Slight Cloudy = UA Turbidity) (09/25/15 5:05 PM) [facility] AND [id number] 22:05:00 Test Item Value Reference Range Interpretation Comments UA pH (test code = UA pH) 6.0 1 5.0-8.0 [facility] AND [id number] 22:05:00 Test Item Value Reference Range Interpretation Comments UA Spec Grav (test >=1.030 *ABN*(09/25/15 code = UA Spec Grav) 5:05 PM) [facility] AND [id number] 22:05:00 Test Item Value Reference Range Interpretation Comments UA Protein (test code = Trace *ABN*(09/25/15 UA Protein) 5:05 PM) [facility] AND [id number] 22:05:00 Test Item Value Reference Range Interpretation Comments UA Leuk Est (test code Trace *ABN*(09/25/15 = UA Leuk Est) 5:05 PM) [facility] AND [id number] 22:05:00 Test Item Value Reference Range Interpretation Comments UA Nitrite (test code Negative (09/25/15 5:05 = UA Nitrite) PM) [facility] AND [id number] 22:05:00 Test Item Value Reference Range Interpretation Comments UA WBC (test code = UA WBC) 3-5 /HPF [facility] AND [id number] 22:05:00 Test Item Value Reference Range Interpretation Comments UA Sq Epi (test code = UA Sq Epi) Few /LPF [facility] AND [id number] 22:05:00 Test Item Value Reference Range Interpretation Comments UA Blood (test code = Negative (09/25/15 5:05 UA Blood) PM) [facility] AND [id number] 22:05:00 Test Item Value Reference Range Interpretation Comments UA RBC (test code = 0-2 /HPF See_Comment [Automa yue message] The UA RBC) system which ge nerated this result tra nsmitted reference range : <=2. The reference range was not used to interpr et this result as sera l/abnormal. [facility] AND [id number] 22:05:00 Test Item Value Reference Range Interpretation Comments UA Glucose (test code Negative (09/25/15 5:05 = UA Glucose) PM) [facility] AND [id number] 22:05:00 Test Item Value Reference Range Interpretation Comments UA Urobilinogen (test code = UA 0.2 0.1-1.0 Urobilinogen) [facility] AND [id number] 22:05:00 Test Item Value Reference Range Interpretation Comments UA Ketones (test code Negative *NA*(09/25/15 = UA Ketones) 5:05 PM) [facility] AND [id number] 22:05:00 Test Item Value Reference Range Interpretation Comments UA Bili (test code = Small *ABN*(09/25/15 UA Bili) 5:05 PM) [facility] AND [id number] 22:05:00 Test Item Value Reference Range Interpretation Comments UA Color (test code = Yellow *NA*(09/25/15 UA Color) 5:05 PM) [facility] AND [id number] 22:05:00 Test Item Value Reference Range Interpretation Comments UA Mucus (test code = UA Mucus) Moderate /LPF [facility] AND [id number] 22:05:00 Test Item Value Reference Range Interpretation Comments UA Bacteria (test code = UA Few /HPF Bacteria) [facility] AND [id number] 22:05:00 Test Item Value Reference Range Interpretation Comments UA Hyal Cast 6-10 (09/25/15 See_Comment [Automated me ssage] (test code = UA 5:05 PM) The system w [facility] Hyal Cast) generated this result transmitted ref erence range: <=2. The reference range was not used to int erpret this result as normal/abnormal . [facility] AND [id number] 22:05:00 Test Item Value Reference Range Interpretation Comments UA Turbidity (test code Slight Cloudy = UA Turbidity) (09/25/15 5:05 PM) [facility] AND [id number] 22:05:00 Test Item Value Reference Range Interpretation Comments UA pH (test code = UA pH) 6.0 1 5.0-8.0 [facility] AND [id number] 22:05:00 Test Item Value Reference Range Interpretation Comments UA Spec Grav (test >=1.030 *ABN*(09/25/15 code = UA Spec Grav) 5:05 PM) [facility] AND [id number] 22:05:00 Test Item Value Reference Range Interpretation Comments UA Protein (test code = Trace *ABN*(09/25/15 UA Protein) 5:05 PM) [facility] AND [id number] 22:05:00 Test Item Value Reference Range Interpretation Comments UA Leuk Est (test code Trace *ABN*(09/25/15 = UA Leuk Est) 5:05 PM) [facility] AND [id number] 22:05:00 Test Item Value Reference Range Interpretation Comments UA Nitrite (test code Negative (09/25/15 5:05 = UA Nitrite) PM) [facility] AND [id number] 22:05:00 Test Item Value Reference Range Interpretation Comments UA WBC (test code = UA WBC) 3-5 /HPF [facility] AND [id number] 22:05:00 Test Item Value Reference Range Interpretation Comments UA Sq Epi (test code = UA Sq Epi) Few /LPF [facility] AND [id number] 22:05:00 Test Item Value Reference Range Interpretation Comments UA Blood (test code = Negative (09/25/15 5:05 UA Blood) PM) [facility] AND [id number] 22:05:00 Test Item Value Reference Range Interpretation Comments UA RBC (test code = 0-2 /HPF See_Comment [Automa yue message] The UA RBC) system which ge nerated this result tra nsmitted reference range : <=2. The reference range was not used to interpr et this result as sera l/abnormal. [facility] AND [id number] 22:05:00 Test Item Value Reference Range Interpretation Comments UA Glucose (test code Negative (09/25/15 5:05 = UA Glucose) PM) [facility] AND [id number] 22:05:00 Test Item Value Reference Range Interpretation Comments UA Urobilinogen (test code = UA 0.2 0.1-1.0 Urobilinogen) [facility] AND [id number] 22:05:00 Test Item Value Reference Range Interpretation Comments UA Ketones (test code Negative *NA*(09/25/15 = UA Ketones) 5:05 PM) [facility] AND [id number] 22:05:00 Test Item Value Reference Range Interpretation Comments UA Bili (test code = Small *ABN*(09/25/15 UA Bili) 5:05 PM) [facility] AND [id number] 22:05:00 Test Item Value Reference Range Interpretation Comments UA Color (test code = Yellow *NA*(09/25/15 UA Color) 5:05 PM) [facility] AND [id number] 22:05:00 Test Item Value Reference Range Interpretation Comments UA Mucus (test code = UA Mucus) Moderate /LPF [facility] AND [id number] 22:05:00 Test Item Value Reference Range Interpretation Comments UA Bacteria (test code = UA Few /HPF Bacteria) [facility] AND [id number] 22:05:00 Test Item Value Reference Range Interpretation Comments UA Hyal Cast 6-10 (09/25/15 See_Comment [Automated me ssage] (test code = UA 5:05 PM) The system w hich Hyal Cast) generated this result transmitted ref erence range: <=2. The reference range was not used to int erpret this result as normal/abnormal . [facility] AND [id number] 22:05:00 Test Item Value Reference Range Interpretation Comments UA Turbidity (test code Slight Cloudy = UA Turbidity) (09/25/15 5:05 PM) [facility] AND [id number] 22:05:00 Test Item Value Reference Range Interpretation Comments UA pH (test code = UA pH) 6.0 1 5.0-8.0 [facility] AND [id number] 22:05:00 Test Item Value Reference Range Interpretation Comments UA Spec Grav (test >=1.030 *ABN*(09/25/15 code = UA Spec Grav) 5:05 PM) [facility] AND [id number] 22:05:00 Test Item Value Reference Range Interpretation Comments UA Protein (test code = Trace *ABN*(09/25/15 UA Protein) 5:05 PM) [facility] AND [id number] 22:05:00 Test Item Value Reference Range Interpretation Comments UA Leuk Est (test code Trace *ABN*(09/25/15 = UA Leuk Est) 5:05 PM) [facility] AND [id number] 22:05:00 Test Item Value Reference Range Interpretation Comments UA Nitrite (test code Negative (09/25/15 5:05 = UA Nitrite) PM) [facility] AND [id number] 22:05:00 Test Item Value Reference Range Interpretation Comments UA WBC (test code = UA WBC) 3-5 /HPF [facility] AND [id number] 22:05:00 Test Item Value Reference Range Interpretation Comments UA Sq Epi (test code = UA Sq Epi) Few /LPF [facility] AND [id number] 22:05:00 Test Item Value Reference Range Interpretation Comments UA Blood (test code = Negative (09/25/15 5:05 UA Blood) PM) [facility] AND [id number] 22:05:00 Test Item Value Reference Range Interpretation Comments UA RBC (test code = 0-2 /HPF See_Comment [Automa yue message] The UA RBC) system which ge nerated this result tra nsmitted reference range : <=2. The reference range was not used to interpr et this result as sera l/abnormal. [facility] AND [id number] 22:05:00 Test Item Value Reference Range Interpretation Comments UA Glucose (test code Negative (09/25/15 5:05 = UA Glucose) PM) [facility] [id number] 22:05:00 Test Item Value Reference Range Interpretation Comments UA Urobilinogen (test code = UA 0.2 0.1-1.0 Urobilinogen) [facility] AND [id number] 22:05:00 Test Item Value Reference Range Interpretation Comments UA Ketones (test code Negative *NA*(09/25/15 = UA Ketones) 5:05 PM) [facility] AND [id number] 22:05:00 Test Item Value Reference Range Interpretation Comments UA Bili (test code = Small *ABN*(09/25/15 UA Bili) 5:05 PM) [facility] AND [id number] 22:05:00 Test Item Value Reference Range Interpretation Comments UA Color (test code = Yellow *NA*(09/25/15 UA Color) 5:05 PM) [facility] AND [id number] 22:05:00 Test Item Value Reference Range Interpretation Comments UA Mucus (test code = UA Mucus) Moderate /LPF [facility] AND [id number] 22:05:00 Test Item Value Reference Range Interpretation Comments UA Bacteria (test code = UA Few /HPF Bacteria) [facility] AND [id number] 22:05:00 Test Item Value Reference Range Interpretation Comments UA Hyal Cast 6-10 (09/25/15 See_Comment [Automated me ssage] (test code = UA 5:05 PM) The system w [facility] Hyal Cast) generated this result transmitted ref erence range: <=2. The reference range was not used to int erpret this result as normal/abnormal . [facility] CenterSrbzlydJNOCSPKXRMJA4123-08-73 21:17:00 Test Item Value Reference Range Interpretation Comments Chloride Lvl (test code = Chloride Lvl) 103 95-109 [facility]ann[facility] [id number] 21:17:00 Test Item Value Reference Range Interpretation Comments Total CK (test code = Total CK) 94 12-191 [facility] [id number] 21:17:00 Test Item Value Reference Range Interpretation Comments Troponin-I (test <0.015 ng/mL See_Comment [Automated message] The code = system which ge nerated Troponin-I) this result tra nsmitted reference range : <=0.40. The reference r xu was not used to int erpret this result as normal/abnormal . [facility] [id number] 21:17:00 Test Item Value Reference Range Interpretation Comments Magnesium Lvl (test code = Magnesium 2.1 1.8-2.4 Lvl) [id number] 21:17:00 Test Item Value Reference Range Interpretation Comments CO2 (test code = CO2) 29 24-32 [facility] HospitalDaohzqzGVWBRBTSAZXA2493-65-58 21:17:00 Test Item Value Reference Range Interpretation Comments AGAP (test code = AGAP) 9.6 10.0-20.0 [facility] Hospi[id number] 21:17:00 Test Item Value Reference Range Interpretation Comments B/C Ratio (test code = B/C Ratio) 11 6-25 [id number] 21:17:00 Test Item Value Reference Range Interpretation Comments Globulin (test code = Globulin) 3.8 2.0-4.0 [facility] Hospit[id number] 21:17:00 Test Item Value Reference Range Interpretation Comments A/G Ratio (test code = A/G Ratio) 1.0 0.7-1.6 [facility] Hosp[id number] 21:17:00 Test Item Value Reference Range Interpretation Comments eGFR (test code = eGFR) 35 [facility] HospitalDumekjaUZLBWKTSTZPW6440-97-29 21:17:00 Test Item Value Reference Range Interpretation Comments Bili Total (test code = Bili Total) 0.4 0.2-1.3 [facility] HospitalCnnjosvCFQINACRNAOV7664-91-04 21:17:00 Test Item Value Reference Range Interpretation Comments AST (test code = AST) 16 See_Comment [Auto mated message] The system which ge nerated this result transmit yue reference range : <=37. The reference range was not used to interpr et this result as sera l/abnormal. [facility] CenterXaellypDPBODENKCNIK0130-42-74 21:17:00 Test Item Value Reference Range Interpretation Comments Alk Phos (test code = Alk Phos) 78 39-136 [facility] HospitalNgxgihqZCJNKIUWPMIE6455-49-06 21:17:00 Test Item Value Reference Range Interpretation Comments ALT (test code = ALT) 17 See_Comment [Auto mated message] The system which ge nerated this result transmit yue reference range : <=65. The reference range was not used to interpr et this result as sera l/abnormal. [facility] HospitalPycpaidQXYZNBQYUGKW6007-90-88 21:17:00 Test Item Value Reference Range Interpretation Comments Calcium Lvl (test code = Calcium Lvl) 9.2 8.5-10.5 [facility] HospitalDhtbceiQTPRSZDTKLAN3641-00-69 21:17:00 Test Item Value Reference Range Interpretation Comments Glucose Lvl (test code = Glucose Lvl) 74 70-99 [facility] HospitalSuunhxoDPYFITLDPOCN4818-00-70 21:17:00 Test Item Value Reference Range Interpretation Comments Chloride Lvl (test code = Chloride Lvl) 103 95-109 [facility] HospitalTfkrlzzCTJAXOYBUMYU3916-74-70 21:17:00 Test Item Value Reference Range Interpretation Comments CO2 (test code = CO2) 29 24-32 [facility] HospitalBejdbtcSVGMANNPTZOM3657-39-26 21:17:00 Test Item Value Reference Range Interpretation Comments Glucose Lvl (test code = Glucose Lvl) 74 70-99 [facility] HospitalVzvdlmhATBOPYGOEWWM7052-32-12 21:17:00 Test Item Value Reference Range Interpretation Comments BUN (test code = BUN) 18 7-22 [facility] HospitalOathjupJHZTMOSEBPEW8814-12-91 21:17:00 Test Item Value Reference Range Interpretation Comments Sodium Lvl (test code = Sodium Lvl) 138 135-145 [facility] HospitalJovawdnJQQCAETJDXWN8199-17-26 21:17:00 Test Item Value Reference Range Interpretation Comments Potassium Lvl (test code = Potassium 3.6 3.5-5.1 Lvl) [facility] HospitalPqaeethAIUDXQSXXZFX0247-84-88 21:17:00 Test Item Value Reference Range Interpretation Comments Creatinine Lvl (test code = Creatinine 1.65 0.50-1.40 Lvl) [facility] HospitalOfmipgxWQZSBICIROWN9355-45-89 21:17:00 Test Item Value Reference Range Interpretation Comments Total Protein (test code = Total 7.7 6.4-8.4 Protein) [facility] HospitalEgfvuruZAATPPRAOBQV2251-57-05 21:17:00 Test Item Value Reference Range Interpretation Comments Albumin Lvl (test code = Albumin Lvl) 3.9 3.5-5.0 [facility]FVDJH[facility]293-[facility] 21:17:00 Test Item Value Reference Range Interpretation Comments PTT (test code = PTT) 29.0 s 22.9-35.8 [facility] HospitalSnwphngFRKLLNZDHOQG0432-15-44 21:17:00 Test Item Value Reference Range Interpretation Comments BUN (test code = BUN) 18 7-22 [facility]IohcdldIMNKRBGMZZ4204-44-41 21:17:00 Test Item Value Reference Range Interpretation Comments INR (test code = INR) 1.06 0.85-1.17 [facility]IpholksHBJJWXBTGY9384-81-38 21:17:00 Test Item Value Reference Range Interpretation Comments PT (test code = PT) 14.1 s 12.0-14.7 [facility]XvojihuXEYACUGTAF0895-20-09 21:17:00 Test Item Value Reference Range Interpretation Comments Hgb (test code = Hgb) 11.6 12.0-16.0 [facility]VzzqzduCZYRTTPPTH7831-27-26 21:17:00 Test Item Value Reference Range Interpretation Comments MCV (test code = MCV) 87.9 80.0-98.0 [facility]RtqnmrrYRRENYBPPQ4942-46-15 21:17:00 Test Item Value Reference Range Interpretation Comments Hct (test code = Hct) 36.1 36.0-48.0 [facility]LnfinhvMXZLODZQUM6886-38-20 21:17:00 Test Item Value Reference Range Interpretation Comments WBC (test code = WBC) 6.9 3.7-10.4 [facility]FnqszboXHHJLJLNSF6187-99-23 21:17:00 Test Item Value Reference Range Interpretation Comments RDW (test code = RDW) 15.4 11.5-14.5 [facility]VxexohrAKKTZITCHT9268-54-52 21:17:00 Test Item Value Reference Range Interpretation Comments RBC (test code = RBC) 4.11 4.20-5.40 [facility]OzbavntCDCQSKXXER4354-23-41 21:17:00 Test Item Value Reference Range Interpretation Comments Platelet (test code = Platelet) 176 133-450 [facility]ZrdzgwpZLOXPWWLNM2881-17-22 21:17:00 Test Item Value Reference Range Interpretation Comments MPV (test code = MPV) 8.3 7.4-10.4 [facility] CenterQrmsgizWAXWAHGCRJIG1531-11-56 21:17:00 Test Item Value Reference Range Interpretation Comments Sodium Lvl (test code = Sodium Lvl) 138 135-145 [facility]EsrqbdtXVKMEENVIS2016-70-21 21:17:00 Test Item Value Reference Range Interpretation Comments MCH (test code = MCH) 28.2 pg 27.0-31.0 [facility]XxvibweQKZEWKNGEB6720-88-71 21:17:00 Test Item Value Reference Range Interpretation Comments MCHC (test code = MCHC) 32.1 32.0-36.0 [facility]ZslzohoETOJZAUDCZ7635-14-35 21:17:00 Test Item Value Reference Range Interpretation Comments Lymphocytes # (test code = Lymphocytes 1.6 1.0-5.5 #) [facility]bpqpywLZBDKFHLBM6967-87-66 21:17:00 Test Item Value Reference Range Interpretation Comments Monocytes # (test code 0.7 See_Comment [Aut omated message] The = Monocytes #) system which generated this result tra nsmitted reference range : <=0.8. The reference r xu was not used to int erpret this result as normal/abnormal . [facility]ZnpwfrmMGAJSGROCQ1941-40-92 21:17:00 Test Item Value Reference Range Interpretation Comments Segs-Bands # (test code = Segs-Bands #) 4.5 1.5-8.1 [facility]VydrptlYOKZWICHBS2809-29-11 21:17:00 Test Item Value Reference Range Interpretation Comments Basophils (test code = 0.3 See_Comment [Aut omated message] The Basophils) system which ge nerated this result tra nsmitted reference range : <=1.0. The reference r xu was not used to int erpret this result as normal/abnormal . [facility]AaocjmuKONDJHXYKD7970-32-01 21:17:00 Test Item Value Reference Range Interpretation Comments Lymphocytes (test code = Lymphocytes) 23.7 20.0-40.0 [facility]SskduidHAKBVSTHJX6868-11-39 21:17:00 Test Item Value Reference Range Interpretation Comments Monocytes (test code = Monocytes) 10.6 2.0-12.0 [facility]VvzpcxdUFJFKTJIHZ2092-42-21 21:17:00 Test Item Value Reference Range Interpretation Comments Segs (test code = Segs) 65.4 45.0-75.0 [facility]BkrnfpxGUVWFIOHSJAR2462-71-05 21:17:00 Test Item Value Reference Range Interpretation Comments Potassium Lvl (test code = Potassium 3.6 3.5-5.1 Lvl) [facility] HospitalRuxmevfPNDHMNIUILUF0453-34-83 21:17:00 Test Item Value Reference Range Interpretation Comments Creatinine Lvl (test code = Creatinine 1.65 0.50-1.40 Lvl) [facility] HospitalJevpeegRIDOZPZHTZXM9096-29-30 21:17:00 Test Item Value Reference Range Interpretation Comments Total Protein (test code = Total 7.7 6.4-8.4 Protein) [facility] HospitalJnqdpcnMNKHYWZKYNQJ2374-19-34 21:17:00 Test Item Value Reference Range Interpretation Comments Albumin Lvl (test code = Albumin Lvl) 3.9 3.5-5.0 [facility]UssnpqwIEEZZQBEDS5490-04-92 21:17:00 Test Item Value Reference Range Interpretation Comments PTT (test code = PTT) 29.0 s 22.9-35.8 [facility]WnkxtgsYLEEGHRFQQ4816-93-52 21:17:00 Test Item Value Reference Range Interpretation Comments INR (test code = INR) 1.06 0.85-1.17 [facility]RsvieamNMJMFHWYBP1117-41-40 21:17:00 Test Item Value Reference Range Interpretation Comments PT (test code = PT) 14.1 s 12.0-14.7 [facility]QuehwuyXYLZEDMVDH7665-88-40 21:17:00 Test Item Value Reference Range Interpretation Comments Hgb (test code = Hgb) 11.6 12.0-16.0 [facility]DgxxrnkBATUWMGLUJ0241-15-98 21:17:00 Test Item Value Reference Range Interpretation Comments MCV (test code = MCV) 87.9 80.0-98.0 [facility]XecrlygBJHCJGUWYL3020-78-00 21:17:00 Test Item Value Reference Range Interpretation Comments Hct (test code = Hct) 36.1 36.0-48.0 [facility]GhuptgqSXHWAPRVGG5532-43-79 21:17:00 Test Item Value Reference Range Interpretation Comments WBC (test code = WBC) 6.9 3.7-10.4 [facility]BcdnwukGPSWOWVGHR5398-26-93 21:17:00 Test Item Value Reference Range Interpretation Comments RDW (test code = RDW) 15.4 11.5-14.5 [facility]NdjkiuuOPQMMOGJPL1620-28-16 21:17:00 Test Item Value Reference Range Interpretation Comments RBC (test code = RBC) 4.11 4.20-5.40 [facility]UvjbmvgAUKVSFUYHQ0135-17-87 21:17:00 Test Item Value Reference Range Interpretation Comments Platelet (test code = Platelet) 176 133-450 [facility]QkvpybiWFERAPVKSU9767-82-49 21:17:00 Test Item Value Reference Range Interpretation Comments MPV (test code = MPV) 8.3 7.4-10.4 [facility]KpvoljlIQVHLVTDNL5476-33-68 21:17:00 Test Item Value Reference Range Interpretation Comments MCH (test code = MCH) 28.2 pg 27.0-31.0 [facility]NurizbpXBQOKTTVWI9502-92-23 21:17:00 Test Item Value Reference Range Interpretation Comments MCHC (test code = MCHC) 32.1 32.0-36.0 [facility]JrsabqfWYYVQQXJPJ9127-70-38 21:17:00 Test Item Value Reference Range Interpretation Comments Lymphocytes # (test code = Lymphocytes 1.6 1.0-5.5 #) [facility]ZhlwjvvTQMISFJTFG3753-05-04 21:17:00 Test Item Value Reference Range Interpretation Comments Monocytes # (test code 0.7 See_Comment [Aut omated message] The = Monocytes #) system which generated this result tra nsmitted reference range : <=0.8. The reference r xu was not used to int erpret this result as normal/abnormal . [facility]ZohtkdoRQISPKYCQC3704-29-69 21:17:00 Test Item Value Reference Range Interpretation Comments Segs-Bands # (test code = Segs-Bands #) 4.5 1.5-8.1 [facility]EompaztFYPMXOCAAA9654-36-60 21:17:00 Test Item Value Reference Range Interpretation Comments Basophils (test code = 0.3 See_Comment [Aut omated message] The Basophils) system which ge nerated this result tra nsmitted reference range : <=1.0. The reference r xu was not used to int erpret this result as normal/abnormal . [facility]HqpfjicHAOJHJWXGX0366-05-01 21:17:00 Test Item Value Reference Range Interpretation Comments Lymphocytes (test code = Lymphocytes) 23.7 20.0-40.0 [facility]EyzgjdhFVGAITEEVM5543-98-50 21:17:00 Test Item Value Reference Range Interpretation Comments Monocytes (test code = Monocytes) 10.6 2.0-12.0 [facility] HospitalXfettmoJKIAGLWXRW4229-83-02 21:17:00 Test Item Value Reference Range Interpretation Comments Segs (test code = Segs) 65.4 45.0-75.0 [facility] WNAEGWJ0218-53-71 21:17:00 Test Item Value Reference Range Interpretation Comments Total CK (test code = Total CK) 94 12-191 [facility] WHUJHVH2499-03-80 21:17:00 Test Item Value Reference Range Interpretation Comments Troponin-I (test <0.015 ng/mL See_Comment [Automated message] The code = system which ge nerated Troponin-I) this result tra nsmitted reference range : <=0.40. The reference r xu was not used to int erpret this result as normal/abnormal . [facility] HospitalCHEM KENVE3499-87-68 21:17:00 Test Item Value Reference Range Interpretation Comments Magnesium Lvl (test code = Magnesium 2.1 1.8-2.4 Lvl) [facility]MqiqmirHEWYVOOPJQJC8300-64-20 21:17:00 Test Item Value Reference Range Interpretation Comments AGAP (test code = AGAP) 9.6 10.0-20.0 [facility] HospitalIrtzlvsZICNHRKTMRSK9490-19-78 21:17:00 Test Item Value Reference Range Interpretation Comments B/C Ratio (test code = B/C Ratio) 11 6-25 [facility] HeightsRepttbbFALDOIRDHSFO4125-38-02 21:17:00 Test Item Value Reference Range Interpretation Comments Globulin (test code = Globulin) 3.8 2.0-4.0 [facility]oMXNVUSZVYRBN7278-83-89 21:17:00 Test Item Value Reference Range Interpretation Comments A/G Ratio (test code = A/G Ratio) 1.0 0.7-1.6 [facility] HospitalUochahwFLXXTOUKLITE5358-17-92 21:17:00 Test Item Value Reference Range Interpretation Comments eGFR (test code = eGFR) 35 [facility] HospitalHtvzrsvVCOTXRPAFHAF6936-79-51 21:17:00 Test Item Value Reference Range Interpretation Comments Bili Total (test code = Bili Total) 0.4 0.2-1.3 [facility] HospitalEoyygvwSCMSOLQOMSDE7683-96-61 21:17:00 Test Item Value Reference Range Interpretation Comments AST (test code = AST) 16 See_Comment [Auto mated message] The system which ge nerated this result transmit yue reference range : <=37. The reference range was not used to interpr et this result as sera l/abnormal. [facility] HospitalJfvaaagEFCGZGGMVJDA5743-17-87 21:17:00 Test Item Value Reference Range Interpretation Comments Alk Phos (test code = Alk Phos) 78 39-136 [facility] HospitalTonkpkwUDHMJNZVMRGZ3515-17-80 21:17:00 Test Item Value Reference Range Interpretation Comments ALT (test code = ALT) 17 See_Comment [Auto mated message] The system which ge nerated this result transmit yue reference range : <=65. The reference range was not used to interpr et this result as sera l/abnormal. [facility] HospitalMusipfrHYNCDAWYOGFM1388-11-84 21:17:00 Test Item Value Reference Range Interpretation Comments Calcium Lvl (test code = Calcium Lvl) 9.2 8.5-10.5 [facility] HospitalLbqrmqsZWJLEHDBXGTS1029-26-13 21:17:00 Test Item Value Reference Range Interpretation Comments Chloride Lvl (test code = Chloride Lvl) 103 95-109 [facility] HospitalBgxdhfsNRHYSMUXKKAL7182-79-32 21:17:00 Test Item Value Reference Range Interpretation Comments CO2 (test code = CO2) 29 24-32 [facility] HospitalQjkkoqiCPENIJKBGNXW1872-90-97 21:17:00 Test Item Value Reference Range Interpretation Comments Glucose Lvl (test code = Glucose Lvl) 74 70-99 [facility] HospitalBalpyoyDMEQUDAMOIUO4935-36-18 21:17:00 Test Item Value Reference Range Interpretation Comments BUN (test code = BUN) 18 7-22 [facility] HospitalWfdetjdXDLQMFXNZUCC4721-05-92 21:17:00 Test Item Value Reference Range Interpretation Comments Sodium Lvl (test code = Sodium Lvl) 138 135-145 [facility] HospitalHmphildCJTXDVGBBVPF6950-30-04 21:17:00 Test Item Value Reference Range Interpretation Comments Potassium Lvl (test code = Potassium 3.6 3.5-5.1 Lvl) [facility] HospitalVjqmoikBLDZWQZCSYMN7070-41-57 21:17:00 Test Item Value Reference Range Interpretation Comments Creatinine Lvl (test code = Creatinine 1.65 0.50-1.40 Lvl) [facility] HospitalQsnlzskCZEOTZMFEEUD6129-94-60 21:17:00 Test Item Value Reference Range Interpretation Comments Total Protein (test code = Total 7.7 6.4-8.4 Protein) [facility] HospitalSrbmgqyBSUQDSMKYBIQ4864-87-23 21:17:00 Test Item Value Reference Range Interpretation Comments Albumin Lvl (test code = Albumin Lvl) 3.9 3.5-5.0 [facility]NdwoxsbUXWCALRRFS4669-91-07 21:17:00 Test Item Value Reference Range Interpretation Comments PTT (test code = PTT) 29.0 s 22.9-35.8 [facility]KgxyvgoOSQVWTVWXF1267-18-20 21:17:00 Test Item Value Reference Range Interpretation Comments INR (test code = INR) 1.06 0.85-1.17 [facility]ZkujugdUEEJZDDXOP6109-92-90 21:17:00 Test Item Value Reference Range Interpretation Comments PT (test code = PT) 14.1 s 12.0-14.7 [facility]QmfrvnrVKNZQVUGZZ0493-92-72 21:17:00 Test Item Value Reference Range Interpretation Comments Hgb (test code = Hgb) 11.6 12.0-16.0 [facility]AtemhbkSHQNFPPLBU2449-66-92 21:17:00 Test Item Value Reference Range Interpretation Comments MCV (test code = MCV) 87.9 80.0-98.0 [facility]FubvcmxVGWFOTGXYH5715-19-92 21:17:00 Test Item Value Reference Range Interpretation Comments Hct (test code = Hct) 36.1 36.0-48.0 [facility]RmenvzcCIRJSCMWLQ7366-54-01 21:17:00 Test Item Value Reference Range Interpretation Comments WBC (test code = WBC) 6.9 3.7-10.4 [facility]ItvpuriYUBAHJUBTU9447-98-28 21:17:00 Test Item Value Reference Range Interpretation Comments RDW (test code = RDW) 15.4 11.5-14.5 [facility]TalvlzrWAYNSVAJDG2943-14-93 21:17:00 Test Item Value Reference Range Interpretation Comments RBC (test code = RBC) 4.11 4.20-5.40 [facility]WfwqobnAGBUCIKEVV0630-43-42 21:17:00 Test Item Value Reference Range Interpretation Comments Platelet (test code = Platelet) 176 133-450 [facility]MpvqsptGRHQCRKLPV2359-91-00 21:17:00 Test Item Value Reference Range Interpretation Comments MPV (test code = MPV) 8.3 7.4-10.4 [facility]VsuyttfODEEEJOJXP7983-78-38 21:17:00 Test Item Value Reference Range Interpretation Comments MCH (test code = MCH) 28.2 pg 27.0-31.0 [facility]OqzjbfmTTQTVWAJFX6891-39-55 21:17:00 Test Item Value Reference Range Interpretation Comments MCHC (test code = MCHC) 32.1 32.0-36.0 [facility]AsmuaqpHGCOXEFDKC8006-26-15 21:17:00 Test Item Value Reference Range Interpretation Comments Lymphocytes # (test code = Lymphocytes 1.6 1.0-5.5 #) [facility]WvybusrKQKLISDVUG1194-37-00 21:17:00 Test Item Value Reference Range Interpretation Comments Monocytes # (test code 0.7 See_Comment [Aut omated message] The = Monocytes #) system which generated this result tra nsmitted reference range : <=0.8. The reference r xu was not used to int erpret this result as normal/abnormal . [facility]IgxandfSIFJUHIGQT3299-13-04 21:17:00 Test Item Value Reference Range Interpretation Comments Segs-Bands # (test code = Segs-Bands #) 4.5 1.5-8.1 [facility]UexnucmLQUUOETHAO8642-25-66 21:17:00 Test Item Value Reference Range Interpretation Comments Basophils (test code = 0.3 See_Comment [Aut omated message] The Basophils) system which ge nerated this result tra nsmitted reference range : <=1.0. The reference r xu was not used to int erpret this result as normal/abnormal . [facility]AwnucslUUKWLSQYAI7771-00-82 21:17:00 Test Item Value Reference Range Interpretation Comments Lymphocytes (test code = Lymphocytes) 23.7 20.0-40.0 [facility]NztzvwlNCHYNEFZLT2650-18-52 21:17:00 Test Item Value Reference Range Interpretation Comments Monocytes (test code = Monocytes) 10.6 2.0-12.0 [facility]WkwioibACAOIXQDXT2932-66-20 21:17:00 Test Item Value Reference Range Interpretation Comments Segs (test code = Segs) 65.4 45.0-75.0 [facility] HospitalCARDI VHFBDDG0618-07-42 21:17:00 Test Item Value Reference Range Interpretation Comments Total CK (test code = Total CK) 94 12-191 [facility] IBQIDPS0844-20-45 21:17:00 Test Item Value Reference Range Interpretation Comments Troponin-I (test <0.015 ng/mL See_Comment [Automated message] The code = system which ge nerated Troponin-I) this result tra nsmitted reference range : <=0.40. The reference r xu was not used to int erpret this result as normal/abnormal . [facility] CenterSpavistaCHEM YSFMC9752-37-88 21:17:00 Test Item Value Reference Range Interpretation Comments Magnesium Lvl (test code = Magnesium 2.1 1.8-2.4 Lvl) [facility] HospitalReoglavXBUYOHAWSJFZ2951-96-62 21:17:00 Test Item Value Reference Range Interpretation Comments AGAP (test code = AGAP) 9.6 10.0-20.0 [facility] HospitalMhkeuroBQSUNTPCKOCF8031-35-82 21:17:00 Test Item Value Reference Range Interpretation Comments B/C Ratio (test code = B/C Ratio) 11 6-25 [facility]IglelssWTKPTAPNNPHP0802-27-74 21:17:00 Test Item Value Reference Range Interpretation Comments Globulin (test code = Globulin) 3.8 2.0-4.0 [facility] HospitalRkextugWKLILYOMBZDR7430-25-82 21:17:00 Test Item Value Reference Range Interpretation Comments A/G Ratio (test code = A/G Ratio) 1.0 0.7-1.6 [facility] HospitalAwiybhmBQIDQGLIIVOX3891-59-23 21:17:00 Test Item Value Reference Range Interpretation Comments eGFR (test code = eGFR) 35 [facility] HospitalTouyysmXCEMWQXVVUEM7655-66-82 21:17:00 Test Item Value Reference Range Interpretation Comments Bili Total (test code = Bili Total) 0.4 0.2-1.3 [facility] HospitalWxplisrWSDIPRFPFNCL9011-62-42 21:17:00 Test Item Value Reference Range Interpretation Comments AST (test code = AST) 16 See_Comment [Auto mated message] The system which ge nerated this result transmit yue reference range : <=37. The reference range was not used to interpr et this result as sera l/abnormal. [facility] HospitalShoucxwTWEHOHVOOJCK5405-74-60 21:17:00 Test Item Value Reference Range Interpretation Comments Alk Phos (test code = Alk Phos) 78 39-136 [facility] HospitalBiwqqcsMTLVCLXLWINC5681-56-67 21:17:00 Test Item Value Reference Range Interpretation Comments ALT (test code = ALT) 17 See_Comment [Auto mated message] The system which ge nerated this result transmit yue reference range : <=65. The reference range was not used to interpr et this result as sera l/abnormal. [facility] HospitalGxxajfbMAEEPRZRDXUC5736-20-92 21:17:00 Test Item Value Reference Range Interpretation Comments Calcium Lvl (test code = Calcium Lvl) 9.2 8.5-10.5 [facility] HospitalQhyjjuhMTGTSTUZNSEI4333-56-43 21:17:00 Test Item Value Reference Range Interpretation Comments Chloride Lvl (test code = Chloride Lvl) 103 95-109 [facility] HospitalPhxdamgBRTPESKJPWKZ0872-62-97 21:17:00 Test Item Value Reference Range Interpretation Comments CO2 (test code = CO2) 29 24-32 [facility] HospitalXxmxngqSTQBKJNHBVIR4261-98-53 21:17:00 Test Item Value Reference Range Interpretation Comments Glucose Lvl (test code = Glucose Lvl) 74 70-99 [facility] HospitalXbcalcuXPDEQXFXBEYU9717-94-59 21:17:00 Test Item Value Reference Range Interpretation Comments BUN (test code = BUN) 18 7-22 [facility] HospitalGjtfaekVLUJAUVBYDKO7093-15-58 21:17:00 Test Item Value Reference Range Interpretation Comments Sodium Lvl (test code = Sodium Lvl) 138 135-145 [facility] HospitalAlsrdoeQZCRUOHREALC0351-53-15 21:17:00 Test Item Value Reference Range Interpretation Comments Potassium Lvl (test code = Potassium 3.6 3.5-5.1 Lvl) [facility] HospitalSjnsmvdBITGOJSGJETZ7383-67-79 21:17:00 Test Item Value Reference Range Interpretation Comments Creatinine Lvl (test code = Creatinine 1.65 0.50-1.40 Lvl) [facility] HospitalQznvfllXVDBKYQSOMAV1285-54-14 21:17:00 Test Item Value Reference Range Interpretation Comments Total Protein (test code = Total 7.7 6.4-8.4 Protein) [facility] HospitalQieodfpCMSUUJATQDKT7768-69-36 21:17:00 Test Item Value Reference Range Interpretation Comments Albumin Lvl (test code = Albumin Lvl) 3.9 3.5-5.0 [facility]HjzgmccNHLQCLGDMP7225-04-67 21:17:00 Test Item Value Reference Range Interpretation Comments PTT (test code = PTT) 29.0 s 22.9-35.8 [facility]OsdwwewGYTOGMMPQR7323-74-97 21:17:00 Test Item Value Reference Range Interpretation Comments INR (test code = INR) 1.06 0.85-1.17 [facility]TkifzjxBVNYLBACYL6940-47-60 21:17:00 Test Item Value Reference Range Interpretation Comments PT (test code = PT) 14.1 s 12.0-14.7 [facility]DumpgrtFEGZRRASWI7523-16-72 21:17:00 Test Item Value Reference Range Interpretation Comments Hgb (test code = Hgb) 11.6 12.0-16.0 [facility]FdrvnlpMLMNYVUDBR0633-47-63 21:17:00 Test Item Value Reference Range Interpretation Comments MCV (test code = MCV) 87.9 80.0-98.0 [facility]ZinkzwvKXYHETCDFA4784-35-45 21:17:00 Test Item Value Reference Range Interpretation Comments Hct (test code = Hct) 36.1 36.0-48.0 [facility]CmhtdkwJLCLTHECWH6975-44-26 21:17:00 Test Item Value Reference Range Interpretation Comments WBC (test code = WBC) 6.9 3.7-10.4 [facility]FhfzbmrERNLAZEXWJ2959-64-57 21:17:00 Test Item Value Reference Range Interpretation Comments RDW (test code = RDW) 15.4 11.5-14.5 [facility]RexqzluGNOVWDUYPY0192-07-39 21:17:00 Test Item Value Reference Range Interpretation Comments RBC (test code = RBC) 4.11 4.20-5.40 [facility]WgeqpuwPMFSTERYHL4177-79-28 21:17:00 Test Item Value Reference Range Interpretation Comments Platelet (test code = Platelet) 176 133-450 [facility]KjylyngSDSGPNRVZF0655-63-27 21:17:00 Test Item Value Reference Range Interpretation Comments MPV (test code = MPV) 8.3 7.4-10.4 [facility]JontgmuYACTLAJUCK9844-34-58 21:17:00 Test Item Value Reference Range Interpretation Comments MCH (test code = MCH) 28.2 pg 27.0-31.0 [facility]NpbbzygNOUXPFOBEL3998-58-07 21:17:00 Test Item Value Reference Range Interpretation Comments MCHC (test code = MCHC) 32.1 32.0-36.0 [facility]PyfkpqmIAUCBJOSUX2181-45-01 21:17:00 Test Item Value Reference Range Interpretation Comments Lymphocytes # (test code = Lymphocytes 1.6 1.0-5.5 #) [facility]NfsiqbvMLZWYSKKCC3632-58-05 21:17:00 Test Item Value Reference Range Interpretation Comments Monocytes # (test code 0.7 See_Comment [Aut omated message] The = Monocytes #) system which generated this result tra nsmitted reference range : <=0.8. The reference r xu was not used to int erpret this result as normal/abnormal . [facility]MyvjjakQUJYYCISLU7692-52-91 21:17:00 Test Item Value Reference Range Interpretation Comments Segs-Bands # (test code = Segs-Bands #) 4.5 1.5-8.1 [facility]LfcabcpERVBPUTGBL7819-18-91 21:17:00 Test Item Value Reference Range Interpretation Comments Basophils (test code = 0.3 See_Comment [Aut omated message] The Basophils) system which ge nerated this result tra nsmitted reference range : <=1.0. The reference r xu was not used to int erpret this result as normal/abnormal . [facility]IiqkqzvFIEMKLJHSF2635-67-45 21:17:00 Test Item Value Reference Range Interpretation Comments Lymphocytes (test code = Lymphocytes) 23.7 20.0-40.0 [facility]JnnbyysMFUKSBNLXT1512-62-35 21:17:00 Test Item Value Reference Range Interpretation Comments Monocytes (test code = Monocytes) 10.6 2.0-12.0 [facility] HospitalVkvjhkzFNQMNSAAFH3767-31-06 21:17:00 Test Item Value Reference Range Interpretation Comments Segs (test code = Segs) 65.4 45.0-75.0 [facility] HospitalTrulioo FBTOVUC4138-27-12 21:17:00 Test Item Value Reference Range Interpretation Comments Total CK (test code = Total CK) 94 12-191 [facility]CARC[facility] UREAKTI3907-10-24 21:17:00 Test Item Value Reference Range Interpretation Comments Troponin-I (test <0.015 ng/mL See_Comment [Automated message] The code = system which ge nerated Troponin-I) this result tra nsmitted reference range : <=0.40. The reference r xu was not used to int erpret this result as normal/abnormal . [facility]2016-05-18 21:17:00 Test Item Value Reference Range Interpretation Comments Magnesium Lvl (test code = Magnesium 2.1 1.8-2.4 Lvl) [facility] HospitalTipugdcCZEGVEJHLEAE8784-31-55 21:17:00 Test Item Value Reference Range Interpretation Comments AGAP (test code = AGAP) 9.6 10.0-20.0 [facility] HospitalTsrdrpfCGUXVVNQXSEO7457-03-29 21:17:00 Test Item Value Reference Range Interpretation Comments B/C Ratio (test code = B/C Ratio) 11 6-25 [facility] HospitalKklzxmxINFTBURZDHTO2728-32-02 21:17:00 Test Item Value Reference Range Interpretation Comments Globulin (test code = Globulin) 3.8 2.0-4.0 [facility] HospitalTcnwpsbAWMYIOYHXSOF3747-73-76 21:17:00 Test Item Value Reference Range Interpretation Comments A/G Ratio (test code = A/G Ratio) 1.0 0.7-1.6 [facility] HospitalDjepgrrBXCENBVAMMJZ5845-06-86 21:17:00 Test Item Value Reference Range Interpretation Comments eGFR (test code = eGFR) 35 [facility] HospitalJctizuiSCUJBJMSLUMW4451-29-00 21:17:00 Test Item Value Reference Range Interpretation Comments Bili Total (test code = Bili Total) 0.4 0.2-1.3 [facility] HospitalOqupjvhQMVOSAQQCNAC1373-02-83 21:17:00 Test Item Value Reference Range Interpretation Comments AST (test code = AST) 16 See_Comment [Auto mated message] The system which ge nerated this result transmit yue reference range : <=37. The reference range was not used to interpr et this result as sera l/abnormal. [facility] HospitalQusmcnrWQZIPAVNDZUH2827-42-50 21:17:00 Test Item Value Reference Range Interpretation Comments Alk Phos (test code = Alk Phos) 78 39-136 [facility] HospitalQkubcekLBUORCKKYXVG7813-17-19 21:17:00 Test Item Value Reference Range Interpretation Comments ALT (test code = ALT) 17 See_Comment [Auto mated message] The system which ge nerated this result transmit yue reference range : <=65. The reference range was not used to interpr et this result as sera l/abnormal. [facility] HospitalCugijgvPPYGMQEBGZPZ3936-51-39 21:17:00 Test Item Value Reference Range Interpretation Comments Calcium Lvl (test code = Calcium Lvl) 9.2 8.5-10.5 [facility] HospitalCzemttjYHMMTZIXQHOW0549-99-06 21:17:00 Test Item Value Reference Range Interpretation Comments Chloride Lvl (test code = Chloride Lvl) 103 95-109 [facility] HospitalQxxijsyQUBPIJQFMWZI5362-96-32 21:17:00 Test Item Value Reference Range Interpretation Comments CO2 (test code = CO2) 29 24-32 [facility] HospitalJkopkigRESCIEHUDLWU9779-43-91 21:17:00 Test Item Value Reference Range Interpretation Comments Glucose Lvl (test code = Glucose Lvl) 74 70-99 [facility] HospitalUlqdbhbFOBXMDKWUPYJ1775-71-60 21:17:00 Test Item Value Reference Range Interpretation Comments BUN (test code = BUN) 18 7-22 [facility] HospitalMrgpemiLOPXCFOXRZHP4670-39-20 21:17:00 Test Item Value Reference Range Interpretation Comments Sodium Lvl (test code = Sodium Lvl) 138 135-145 [facility] HospitalMslgixyJGBKIOQFCRJD8729-89-54 21:17:00 Test Item Value Reference Range Interpretation Comments Potassium Lvl (test code = Potassium 3.6 3.5-5.1 Lvl) [facility] HospitalTlrqhsqLOPZLEWDNJOP0307-26-39 21:17:00 Test Item Value Reference Range Interpretation Comments Creatinine Lvl (test code = Creatinine 1.65 0.50-1.40 Lvl) [facility] HospitalRduxnscDFYSLKNIZZJC6307-54-38 21:17:00 Test Item Value Reference Range Interpretation Comments Total Protein (test code = Total 7.7 6.4-8.4 Protein) [facility] HospitalRqusbusDNIZHJHCHGVE1730-18-48 21:17:00 Test Item Value Reference Range Interpretation Comments Albumin Lvl (test code = Albumin Lvl) 3.9 3.5-5.0 [facility]VWIHXPAFGB9165-74-21 21:17:00 Test Item Value Reference Range Interpretation Comments PTT (test code = PTT) 29.0 s 22.9-35.8 [facility]ZqwndtfVAMAATMHJA3077-61-35 21:17:00 Test Item Value Reference Range Interpretation Comments INR (test code = INR) 1.06 0.85-1.17 [facility]VedtsfyBVONVUQSFA4253-43-12 21:17:00 Test Item Value Reference Range Interpretation Comments PT (test code = PT) 14.1 s 12.0-14.7 [facility]LhyingkOYRPJOTNGP2863-47-98 21:17:00 Test Item Value Reference Range Interpretation Comments Hgb (test code = Hgb) 11.6 12.0-16.0 [facility]HcdndvuRISACRJWUW7600-96-91 21:17:00 Test Item Value Reference Range Interpretation Comments MCV (test code = MCV) 87.9 80.0-98.0 [facility]JgyjnkbZQVLXBNARQ8898-60-03 21:17:00 Test Item Value Reference Range Interpretation Comments Hct (test code = Hct) 36.1 36.0-48.0 [facility]LuyzsdfCLFANXCFYI2407-64-82 21:17:00 Test Item Value Reference Range Interpretation Comments WBC (test code = WBC) 6.9 3.7-10.4 [facility]FdnejcfJCLIJPLMRK7275-94-65 21:17:00 Test Item Value Reference Range Interpretation Comments RDW (test code = RDW) 15.4 11.5-14.5 [facility]CzjqpoaKOTCCHMJJP1372-02-18 21:17:00 Test Item Value Reference Range Interpretation Comments RBC (test code = RBC) 4.11 4.20-5.40 [facility]XfqdgkzSGYKHLSQDI5927-20-34 21:17:00 Test Item Value Reference Range Interpretation Comments Platelet (test code = Platelet) 176 133-450 [facility]GpxxrikDGMQKURBBQ9933-71-08 21:17:00 Test Item Value Reference Range Interpretation Comments MPV (test code = MPV) 8.3 7.4-10.4 [facility]TajebhhNSGFUOZLLI1468-81-47 21:17:00 Test Item Value Reference Range Interpretation Comments MCH (test code = MCH) 28.2 pg 27.0-31.0 [facility]FkokaqbKWFFGMKUZJ2378-38-68 21:17:00 Test Item Value Reference Range Interpretation Comments MCHC (test code = MCHC) 32.1 32.0-36.0 [facility]RfofegcQYURAJDFBJ9068-82-41 21:17:00 Test Item Value Reference Range Interpretation Comments Lymphocytes # (test code = Lymphocytes 1.6 1.0-5.5 #) [facility]BwcswqdLWEHQNTIUI5889-19-46 21:17:00 Test Item Value Reference Range Interpretation Comments Monocytes # (test code 0.7 See_Comment [Aut omated message] The = Monocytes #) system which generated this result tra nsmitted reference range : <=0.8. The reference r xu was not used to int erpret this result as normal/abnormal . [facility]YloemuuEQXHCDIDWB5949-52-22 21:17:00 Test Item Value Reference Range Interpretation Comments Segs-Bands # (test code = Segs-Bands #) 4.5 1.5-8.1 [facility] CenterOruchvtYPRZGRUWEP2335-29-39 21:17:00 Test Item Value Reference Range Interpretation Comments Basophils (test code = 0.3 See_Comment [Aut omated message] The Basophils) system which ge nerated this result tra nsmitted reference range : <=1.0. The reference r xu was not used to int erpret this result as normal/abnormal . [facility] CenterZceyappKEUVSUTYLC6591-85-31 21:17:00 Test Item Value Reference Range Interpretation Comments Lymphocytes (test code = Lymphocytes) 23.7 20.0-40.0 [facility] CenterUwwlpxiVRMKIYEZUZ8518-60-23 21:17:00 Test Item Value Reference Range Interpretation Comments Monocytes (test code = Monocytes) 10.6 2.0-12.0 [facility] CenterRpecfsfIBYYMWPJBS5565-10-50 21:17:00 Test Item Value Reference Range Interpretation Comments Segs (test code = Segs) 65.4 45.0-75.0 [facility] CenterNthDegree Technologies Worldwide KVVQLOD3466-85-89 21:17:00 Test Item Value Reference Range Interpretation Comments Total CK (test code = Total CK) 94 12-191 [facility] HospitalTrulioo RBQVOFJ6274-50-06 21:17:00 Test Item Value Reference Range Interpretation Comments Troponin-I (test <0.015 ng/mL See_Comment [Automated message] The code = system which ge nerated Troponin-I) this result tra nsmitted reference range : <=0.40. The reference r xu was not used to int erpret this result as normal/abnormal . [facility] CenterNuHabitat NQOHN8265-56-78 21:17:00 Test Item Value Reference Range Interpretation Comments Magnesium Lvl (test code = Magnesium 2.1 1.8-2.4 Lvl) [facility] HospitalRlpaqjlRBIONRIFCVSE7240-10-19 21:17:00 Test Item Value Reference Range Interpretation Comments AGAP (test code = AGAP) 9.6 10.0-20.0 [facility] HospitalRjgdwxbDOTCBTZLCATX1278-33-21 21:17:00 Test Item Value Reference Range Interpretation Comments B/C Ratio (test code = B/C Ratio) 11 6-25 [facility] HospitalVeozrjyRUCIXCJGLDCH5609-96-84 21:17:00 Test Item Value Reference Range Interpretation Comments Globulin (test code = Globulin) 3.8 2.0-4.0 [facility] HospitalUqmertmKFRDFUEDKORT3506-42-04 21:17:00 Test Item Value Reference Range Interpretation Comments A/G Ratio (test code = A/G Ratio) 1.0 0.7-1.6 [facility] HospitalXtspjbrYUJCQCJBLAGW5832-59-31 21:17:00 Test Item Value Reference Range Interpretation Comments eGFR (test code = eGFR) 35 [facility] HospitalFatzjynDWASNCKINKOM7951-15-94 21:17:00 Test Item Value Reference Range Interpretation Comments Bili Total (test code = Bili Total) 0.4 0.2-1.3 [facility] HospitalWyejvhfFISYSZDYENAD7092-11-49 21:17:00 Test Item Value Reference Range Interpretation Comments AST (test code = AST) 16 See_Comment [Auto mated message] The system which ge nerated this result transmit yue reference range : <=37. The reference range was not used to interpr et this result as sera l/abnormal. [facility] HospitalMdjzecaBTUSRUGJFBST5153-80-11 21:17:00 Test Item Value Reference Range Interpretation Comments Alk Phos (test code = Alk Phos) 78 39-136 [facility] HospitalCfvhadeRMKHSFKRZHMA6020-92-46 21:17:00 Test Item Value Reference Range Interpretation Comments ALT (test code = ALT) 17 See_Comment [Auto mated message] The system which ge nerated this result transmit yue reference range : <=65. The reference range was not used to interpr et this result as sera l/abnormal. [facility] HospitalMhvlhacNPJGCWHKXKUQ5495-54-90 21:17:00 Test Item Value Reference Range Interpretation Comments Calcium Lvl (test code = Calcium Lvl) 9.2 8.5-10.5 [facility] HospitalLwojlsuFINGFYVOQOSR7837-14-73 21:17:00 Test Item Value Reference Range Interpretation Comments Chloride Lvl (test code = Chloride Lvl) 103 95-109 [facility] HospitalYzatzdhOQXCJBQJPUZZ2223-87-71 21:17:00 Test Item Value Reference Range Interpretation Comments CO2 (test code = CO2) 29 24-32 [facility] HospitalYiiknulDXNFWCBMUIJP5073-30-95 21:17:00 Test Item Value Reference Range Interpretation Comments Glucose Lvl (test code = Glucose Lvl) 74 70-99 [facility] HospitalQifmpirCROEQENLJTSV6801-72-68 21:17:00 Test Item Value Reference Range Interpretation Comments BUN (test code = BUN) 18 7-22 [facility] HospitalGrtiaprPMSYTNKUYLYO6458-21-36 21:17:00 Test Item Value Reference Range Interpretation Comments Sodium Lvl (test code = Sodium Lvl) 138 135-145 [facility] HospitalBttejemAHETAMNEEVGE3390-87-30 21:17:00 Test Item Value Reference Range Interpretation Comments Potassium Lvl (test code = Potassium 3.6 3.5-5.1 Lvl) [facility] HospitalTpuehtcLABELBCEBEEF5187-32-96 21:17:00 Test Item Value Reference Range Interpretation Comments Creatinine Lvl (test code = Creatinine 1.65 0.50-1.40 Lvl) [facility] HospitalBingsjvIVIUXXFPCCNB3354-78-51 21:17:00 Test Item Value Reference Range Interpretation Comments Total Protein (test code = Total 7.7 6.4-8.4 Protein) [facility] HospitalLikzpvtGBYUKDXTLZQD9282-61-17 21:17:00 Test Item Value Reference Range Interpretation Comments Albumin Lvl (test code = Albumin Lvl) 3.9 3.5-5.0 [facility]TndzmotIWVZKDKDWE4298-56-83 21:17:00 Test Item Value Reference Range Interpretation Comments PTT (test code = PTT) 29.0 s 22.9-35.8 [facility]IcpypqeNQUJWPQPXR9326-77-39 21:17:00 Test Item Value Reference Range Interpretation Comments INR (test code = INR) 1.06 0.85-1.17 [facility]AeetnhgDVJVVHVYFS8409-51-43 21:17:00 Test Item Value Reference Range Interpretation Comments PT (test code = PT) 14.1 s 12.0-14.7 [facility]BeyegzxXCTKLYPHTB5499-99-78 21:17:00 Test Item Value Reference Range Interpretation Comments Hgb (test code = Hgb) 11.6 12.0-16.0 [facility]AtcrtcfSCVJMFFYEO2385-90-53 21:17:00 Test Item Value Reference Range Interpretation Comments MCV (test code = MCV) 87.9 80.0-98.0 [facility]XmlqdacNSHBYFJYZP9776-44-80 21:17:00 Test Item Value Reference Range Interpretation Comments Hct (test code = Hct) 36.1 36.0-48.0 [facility]IiidjprEYZBICCTFV0869-64-40 21:17:00 Test Item Value Reference Range Interpretation Comments WBC (test code = WBC) 6.9 3.7-10.4 [facility]CumpdjrUBNYYLNMGM7419-67-48 21:17:00 Test Item Value Reference Range Interpretation Comments RDW (test code = RDW) 15.4 11.5-14.5 [facility]DbmymvdHUEAFXRWJD8367-17-86 21:17:00 Test Item Value Reference Range Interpretation Comments RBC (test code = RBC) 4.11 4.20-5.40 [facility]WnfxlzlDYFOXMLQBO5336-93-16 21:17:00 Test Item Value Reference Range Interpretation Comments Platelet (test code = Platelet) 176 133-450 [facility]OokysasCEMBKBVOVN3189-13-59 21:17:00 Test Item Value Reference Range Interpretation Comments MPV (test code = MPV) 8.3 7.4-10.4 [facility]RdvcuruFORLUSJBHY5695-86-66 21:17:00 Test Item Value Reference Range Interpretation Comments MCH (test code = MCH) 28.2 pg 27.0-31.0 [facility]OcuqklzHJCBSLIXNR1804-34-36 21:17:00 Test Item Value Reference Range Interpretation Comments MCHC (test code = MCHC) 32.1 32.0-36.0 [facility]ZnnkqiuNAIZNVHCBD7165-30-05 21:17:00 Test Item Value Reference Range Interpretation Comments Lymphocytes # (test code = Lymphocytes 1.6 1.0-5.5 #) [facility]KucltcuJPSDMWFABU9232-68-92 21:17:00 Test Item Value Reference Range Interpretation Comments Monocytes # (test code 0.7 See_Comment [Aut omated message] The = Monocytes #) system which generated this result tra nsmitted reference range : <=0.8. The reference r xu was not used to int erpret this result as normal/abnormal . [facility]DognlhiPUXFKHERIC1130-74-01 21:17:00 Test Item Value Reference Range Interpretation Comments Segs-Bands # (test code = Segs-Bands #) 4.5 1.5-8.1 [facility]DimvfrcZWICBCUZVX5360-33-40 21:17:00 Test Item Value Reference Range Interpretation Comments Basophils (test code = 0.3 See_Comment [Aut omated message] The Basophils) system which ge nerated this result tra nsmitted reference range : <=1.0. The reference r xu was not used to int erpret this result as normal/abnormal . [facility] HospitalVojlbktUKZNKEZXLK6576-51-63 21:17:00 Test Item Value Reference Range Interpretation Comments Lymphocytes (test code = Lymphocytes) 23.7 20.0-40.0 [facility] HospitalHvxcecxEWIABTJWIU8024-18-18 21:17:00 Test Item Value Reference Range Interpretation Comments Monocytes (test code = Monocytes) 10.6 2.0-12.0 [facility] HospitalCheamkwQDKZVQPCJJ3688-99-64 21:17:00 Test Item Value Reference Range Interpretation Comments Segs (test code = Segs) 65.4 45.0-75.0 [facility] HospitalCARDIAC MEEJTYR8673-78-72 21:17:00 Test Item Value Reference Range Interpretation Comments Total CK (test code = Total CK) 94 12-191 [facility]CAR[facility] WJGDOXR0266-36-99 21:17:00 Test Item Value Reference Range Interpretation Comments Troponin-I (test <0.015 ng/mL See_Comment [Automated message] The code = system which ge nerated Troponin-I) this result tra nsmitted reference range : <=0.40. The reference r xu was not used to int erpret this result as normal/abnormal . [facility] CenterSpavistaCHEM YMTVL1891-19-43 21:17:00 Test Item Value Reference Range Interpretation Comments Magnesium Lvl (test code = Magnesium 2.1 1.8-2.4 Lvl) [facility]GftlkdaFUOMSWWQSTVD1583-84-31 21:17:00 Test Item Value Reference Range Interpretation Comments AGAP (test code = AGAP) 9.6 10.0-20.0 [facility]svtpldGKKLFNIMSTTC9286-72-94 21:17:00 Test Item Value Reference Range Interpretation Comments B/C Ratio (test code = B/C Ratio) 11 6-25 [facility] HospitalPhyinsyHMFYKQCQZGAA5387-28-01 21:17:00 Test Item Value Reference Range Interpretation Comments Globulin (test code = Globulin) 3.8 2.0-4.0 [facility] HospitalRkevowjHEGIPJYIQGXI1988-94-26 21:17:00 Test Item Value Reference Range Interpretation Comments A/G Ratio (test code = A/G Ratio) 1.0 0.7-1.6 [facility] HospitalOdkwdekHPCNQIJIMROT0573-15-60 21:17:00 Test Item Value Reference Range Interpretation Comments eGFR (test code = eGFR) 35 [facility] HospitalRbggenvFBXMKPYJHPIZ3564-67-17 21:17:00 Test Item Value Reference Range Interpretation Comments Bili Total (test code = Bili Total) 0.4 0.2-1.3 [facility] HospitalYecbzchOUYHMXJNWMNC8881-94-25 21:17:00 Test Item Value Reference Range Interpretation Comments AST (test code = AST) 16 See_Comment [Auto mated message] The system which ge nerated this result transmit yue reference range : <=37. The reference range was not used to interpr et this result as sera l/abnormal. [facility] HospitalWxcokguMGYFFDYPYWIT5336-48-51 21:17:00 Test Item Value Reference Range Interpretation Comments Alk Phos (test code = Alk Phos) 78 39-136 [facility] HospitalBdvddxuEBOTAXKAJVNA2775-99-59 21:17:00 Test Item Value Reference Range Interpretation Comments ALT (test code = ALT) 17 See_Comment [Auto mated message] The system which ge nerated this result transmit yue reference range : <=65. The reference range was not used to interpr et this result as sera l/abnormal. [facility] HospitalYeylynpANIISKLWCCRT4252-56-71 21:17:00 Test Item Value Reference Range Interpretation Comments Calcium Lvl (test code = Calcium Lvl) 9.2 8.5-10.5 [facility] HospitalLkknosfAQGRLRPXOOWP5140-85-13 21:17:00 Test Item Value Reference Range Interpretation Comments Chloride Lvl (test code = Chloride Lvl) 103 95-109 [facility] HospitalDfrllcaBAAGWJSZMXAS5814-03-73 21:17:00 Test Item Value Reference Range Interpretation Comments CO2 (test code = CO2) 29 24-32 [facility] HospitalClavcrgXPCFXWEHJJSH5418-10-86 21:17:00 Test Item Value Reference Range Interpretation Comments Glucose Lvl (test code = Glucose Lvl) 74 70-99 [facility] HospitalPrdwlsfZXOWTPOKTDHX0888-10-22 21:17:00 Test Item Value Reference Range Interpretation Comments BUN (test code = BUN) 18 7-22 [facility] HospitalMbhrszsQUWYWBDTAIGL3823-27-29 21:17:00 Test Item Value Reference Range Interpretation Comments Sodium Lvl (test code = Sodium Lvl) 138 135-145 [facility] HospitalZyyugxjWYHOXLNLMZYE4392-94-43 21:17:00 Test Item Value Reference Range Interpretation Comments Potassium Lvl (test code = Potassium 3.6 3.5-5.1 Lvl) [facility] HospitalBuwtdxbOTFTULZRKPZJ8885-55-31 21:17:00 Test Item Value Reference Range Interpretation Comments Creatinine Lvl (test code = Creatinine 1.65 0.50-1.40 Lvl) [facility] HospitalTaiyxntFNPVMSTGXQPO3927-92-58 21:17:00 Test Item Value Reference Range Interpretation Comments Total Protein (test code = Total 7.7 6.4-8.4 Protein) [facility] HospitalSbshkdtKZGKIRNEDSGE9548-27-07 21:17:00 Test Item Value Reference Range Interpretation Comments Albumin Lvl (test code = Albumin Lvl) 3.9 3.5-5.0 [facility]ZnkqcolICTZJARHPO9175-30-74 21:17:00 Test Item Value Reference Range Interpretation Comments PTT (test code = PTT) 29.0 s 22.9-35.8 [facility]YvdpgvjMFGSYLNVAP4733-24-90 21:17:00 Test Item Value Reference Range Interpretation Comments INR (test code = INR) 1.06 0.85-1.17 [facility]NxftzndRRXJNEGXZN2488-94-48 21:17:00 Test Item Value Reference Range Interpretation Comments PT (test code = PT) 14.1 s 12.0-14.7 [facility]CcvezifKGOEWJBRCQ3726-04-87 21:17:00 Test Item Value Reference Range Interpretation Comments Hgb (test code = Hgb) 11.6 12.0-16.0 [facility]JgigexqUNGHLTJSRM7353-86-46 21:17:00 Test Item Value Reference Range Interpretation Comments MCV (test code = MCV) 87.9 80.0-98.0 [place] 594266-05-18 21:17:00 Test Item Value Reference Range Interpretation Comments Hct (test code = Hct) 36.1 36.0-48.0 [facility]JndvpniXMIXRTLBMG3468-50-69 21:17:00 Test Item Value Reference Range Interpretation Comments WBC (test code = WBC) 6.9 3.7-10.4 [facility]RrgbtpiZDKDNTBAVU2942-52-31 21:17:00 Test Item Value Reference Range Interpretation Comments RDW (test code = RDW) 15.4 11.5-14.5 [facility]AgotmcoSHBYSNXQGO9026-44-94 21:17:00 Test Item Value Reference Range Interpretation Comments RBC (test code = RBC) 4.11 4.20-5.40 [facility]IocoawfPPCAZSLGXL1766-82-49 21:17:00 Test Item Value Reference Range Interpretation Comments Platelet (test code = Platelet) 176 133-450 [facility]NdhhwzsZBXWUQKKQO1443-13-89 21:17:00 Test Item Value Reference Range Interpretation Comments MPV (test code = MPV) 8.3 7.4-10.4 [facility]UywcuhkXEVHDQTANR0209-54-29 21:17:00 Test Item Value Reference Range Interpretation Comments MCH (test code = MCH) 28.2 pg 27.0-31.0 [facility]KzdfjarGFUICRHNMQ6554-11-87 21:17:00 Test Item Value Reference Range Interpretation Comments MCHC (test code = MCHC) 32.1 32.0-36.0 [facility]DjljzbyXYCGYRRHDM2480-85-31 21:17:00 Test Item Value Reference Range Interpretation Comments Lymphocytes # (test code = Lymphocytes 1.6 1.0-5.5 #) [facility]DwhutqmRDFPRQQDUG0356-08-54 21:17:00 Test Item Value Reference Range Interpretation Comments Monocytes # (test code 0.7 See_Comment [Aut omated message] The = Monocytes #) system which generated this result tra nsmitted reference range : <=0.8. The reference r xu was not used to int erpret this result as normal/abnormal . [facility]WlxpwzoNTKKYAJIRM7290-30-74 21:17:00 Test Item Value Reference Range Interpretation Comments Segs-Bands # (test code = Segs-Bands #) 4.5 1.5-8.1 [facility]KnjtplqGVKKRMDCLQ7285-56-80 21:17:00 Test Item Value Reference Range Interpretation Comments Basophils (test code = 0.3 See_Comment [Aut omated message] The Basophils) system which ge nerated this result tra nsmitted reference range : <=1.0. The reference r xu was not used to int erpret this result as normal/abnormal . [facility] HospitalDdfutciDVWONHIAXK0364-10-75 21:17:00 Test Item Value Reference Range Interpretation Comments Lymphocytes (test code = Lymphocytes) 23.7 20.0-40.0 [facility] CenterHomgldyVPZYHMZNUJ6347-64-52 21:17:00 Test Item Value Reference Range Interpretation Comments Monocytes (test code = Monocytes) 10.6 2.0-12.0 [facility] HospitalOyexdyjSCHOJTBISU5025-12-63 21:17:00 Test Item Value Reference Range Interpretation Comments Segs (test code = Segs) 65.4 45.0-75.0 [facility] HospitalCARDIAC HQPVTLH2985-69-83 21:17:00 Test Item Value Reference Range Interpretation Comments Total CK (test code = Total CK) 94 12-191 [facility] HospitalCARDIAC OOMSYQU5162-95-88 21:17:00 Test Item Value Reference Range Interpretation Comments Troponin-I (test <0.015 ng/mL See_Comment [Automated message] The code = system which ge nerated Troponin-I) this result tra nsmitted reference range : <=0.40. The reference r xu was not used to int erpret this result as normal/abnormal . [facility] HospitalCHEM SSAHO5981-84-88 21:17:00 Test Item Value Reference Range Interpretation Comments Magnesium Lvl (test code = Magnesium 2.1 1.8-2.4 Lvl) [facility] HeightsXoyxfneCMCSHYBDFJAU6471-31-70 21:17:00 Test Item Value Reference Range Interpretation Comments AGAP (test code = AGAP) 9.6 10.0-20.0 [facility] HeightsGrubxenLGJGEHBASGZU6256-72-49 21:17:00 Test Item Value Reference Range Interpretation Comments B/C Ratio (test code = B/C Ratio) 11 6-25 [facility] CenterPnqdnudCSLTOMCZRKOF0167-66-85 21:17:00 Test Item Value Reference Range Interpretation Comments Globulin (test code = Globulin) 3.8 2.0-4.0 [facility] CenterZekgmwrNGEFDRKJJDNO2905-74-24 21:17:00 Test Item Value Reference Range Interpretation Comments A/G Ratio (test code = A/G Ratio) 1.0 0.7-1.6 [facility] HospitalMjvqksqBNZANQITBDZZ6919-25-16 21:17:00 Test Item Value Reference Range Interpretation Comments eGFR (test code = eGFR) 35 [facility] HospitalRbonexhKUVIETMCMPLO5850-52-19 21:17:00 Test Item Value Reference Range Interpretation Comments Bili Total (test code = Bili Total) 0.4 0.2-1.3 [facility] HospitalRdmcyuaRITOYCJDWBVE5747-90-94 21:17:00 Test Item Value Reference Range Interpretation Comments AST (test code = AST) 16 See_Comment [Auto mated message] The system which ge nerated this result transmit yue reference range : <=37. The reference range was not used to interpr et this result as sera l/abnormal. [facility] HospitalDyvfiomHVSANVYYBBKK0157-91-28 21:17:00 Test Item Value Reference Range Interpretation Comments Alk Phos (test code = Alk Phos) 78 39-136 [facility] HospitalKbbtyusEFOTFLDKWTDU1677-63-22 21:17:00 Test Item Value Reference Range Interpretation Comments ALT (test code = ALT) 17 See_Comment [Auto mated message] The system which ge nerated this result transmit yue reference range : <=65. The reference range was not used to interpr et this result as sera l/abnormal. [facility] HospitalXbzffjiLJQPKKTFQJWL9339-74-36 21:17:00 Test Item Value Reference Range Interpretation Comments Calcium Lvl (test code = Calcium Lvl) 9.2 8.5-10.5 [facility] HospitalYhpecmgBLDXRCQFTLWF6267-59-00 21:17:00 Test Item Value Reference Range Interpretation Comments Chloride Lvl (test code = Chloride Lvl) 103 95-109 [facility] HospitalOkmxntnPQMSLDTQPAXH6496-91-31 21:17:00 Test Item Value Reference Range Interpretation Comments CO2 (test code = CO2) 29 24-32 [facility] HospitalHxjgpvgMMLBLNQOKCZI1657-94-61 21:17:00 Test Item Value Reference Range Interpretation Comments Glucose Lvl (test code = Glucose Lvl) 74 70-99 [facility] HospitalCphxoanGGXDBQNCGMIR4726-69-64 21:17:00 Test Item Value Reference Range Interpretation Comments BUN (test code = BUN) 18 7-22 [facility] HospitalEnhbvgsZCAFFLSBGGNB3568-38-41 21:17:00 Test Item Value Reference Range Interpretation Comments Sodium Lvl (test code = Sodium Lvl) 138 135-145 [facility] HospitalZmqlzycHHDAPZCNYOPN2991-76-95 21:17:00 Test Item Value Reference Range Interpretation Comments Potassium Lvl (test code = Potassium 3.6 3.5-5.1 Lvl) [facility] HospitalXkxwqlhTKUGAADUZQND7943-57-52 21:17:00 Test Item Value Reference Range Interpretation Comments Creatinine Lvl (test code = Creatinine 1.65 0.50-1.40 Lvl) [facility] HospitalCnjveeoTUXDHPDHZUUK8577-82-50 21:17:00 Test Item Value Reference Range Interpretation Comments Total Protein (test code = Total 7.7 6.4-8.4 Protein) [facility] [facility]ONZUGTQEM5185-66-66 21:17:00 Test Item Value Reference Range Interpretation Comments Albumin Lvl (test code = Albumin Lvl) 3.9 3.5-5.0 [facility]fdybmGXBBZWMMCK7597-72-33 21:17:00 Test Item Value Reference Range Interpretation Comments PTT (test code = PTT) 29.0 s 22.9-35.8 [facility]WvxmkdgSZCDPXQSBC7621-75-91 21:17:00 Test Item Value Reference Range Interpretation Comments INR (test code = INR) 1.06 0.85-1.17 [facility]ZlbtykmOQQNGYWCRN5557-98-37 21:17:00 Test Item Value Reference Range Interpretation Comments PT (test code = PT) 14.1 s 12.0-14.7 [facility]GcfjfgvUGNSQRPUCO1870-93-53 21:17:00 Test Item Value Reference Range Interpretation Comments Hgb (test code = Hgb) 11.6 12.0-16.0 [place] 594266-05-18 21:17:00 Test Item Value Reference Range Interpretation Comments MCV (test code = MCV) 87.9 80.0-98.0 [facility]IvhwrmzCEAGZSNWIS7697-76-01 21:17:00 Test Item Value Reference Range Interpretation Comments Hct (test code = Hct) 36.1 36.0-48.0 [facility]BscqfwlEJOXYYPVIO5302-85-16 21:17:00 Test Item Value Reference Range Interpretation Comments WBC (test code = WBC) 6.9 3.7-10.4 [facility]QzkgsrvZWYOUGXUHC8191-47-70 21:17:00 Test Item Value Reference Range Interpretation Comments RDW (test code = RDW) 15.4 11.5-14.5 [facility]HlsttxtCCFEXCXOZK7576-32-38 21:17:00 Test Item Value Reference Range Interpretation Comments RBC (test code = RBC) 4.11 4.20-5.40 [facility]KgwisrtJTWKYEUXEI9525-72-24 21:17:00 Test Item Value Reference Range Interpretation Comments Platelet (test code = Platelet) 176 133-450 [facility]YppdpijBFSHYUZSXL3292-41-22 21:17:00 Test Item Value Reference Range Interpretation Comments MPV (test code = MPV) 8.3 7.4-10.4 [facility]NkkqtwsTACGHPMSEU7282-83-11 21:17:00 Test Item Value Reference Range Interpretation Comments MCH (test code = MCH) 28.2 pg 27.0-31.0 [facility]ClpuxzdRBAJFWWSBZ1089-12-16 21:17:00 Test Item Value Reference Range Interpretation Comments MCHC (test code = MCHC) 32.1 32.0-36.0 [facility]GsvbjciLPOVGFCYXQ2695-46-64 21:17:00 Test Item Value Reference Range Interpretation Comments Lymphocytes # (test code = Lymphocytes 1.6 1.0-5.5 #) [facility]YpntsguBPDUFJKNGU9396-52-72 21:17:00 Test Item Value Reference Range Interpretation Comments Monocytes # (test code 0.7 See_Comment [Aut omated message] The = Monocytes #) system which generated this result tra nsmitted reference range : <=0.8. The reference r xu was not used to int erpret this result as normal/abnormal . [facility]MajdbphLRXLPJXTQM8427-75-13 21:17:00 Test Item Value Reference Range Interpretation Comments Segs-Bands # (test code = Segs-Bands #) 4.5 1.5-8.1 [facility]AuwuggsYOEJNKBCID6079-60-48 21:17:00 Test Item Value Reference Range Interpretation Comments Basophils (test code = 0.3 See_Comment [Aut omated message] The Basophils) system which ge nerated this result tra nsmitted reference range : <=1.0. The reference r xu was not used to int erpret this result as normal/abnormal . [facility]DhmcuqfWZKVOFURME9075-58-69 21:17:00 Test Item Value Reference Range Interpretation Comments Lymphocytes (test code = Lymphocytes) 23.7 20.0-40.0 [facility]AquwsudQGCGEPUISN9238-09-44 21:17:00 Test Item Value Reference Range Interpretation Comments Monocytes (test code = Monocytes) 10.6 2.0-12.0 [facility]BexmubdHQYVXMFRET8109-43-03 21:17:00 Test Item Value Reference Range Interpretation Comments Segs (test code = Segs) 65.4 45.0-75.0 [facility] HospitalCARAC LLYRYSH2444-73-39 21:17:00 Test Item Value Reference Range Interpretation Comments Total CK (test code = Total CK) 94 12-191 [facility] JERCGII4264-27-50 21:17:00 Test Item Value Reference Range Interpretation Comments Troponin-I (test <0.015 ng/mL See_Comment [Automated message] The code = system which ge nerated Troponin-I) this result tra nsmitted reference range : <=0.40. The reference r xu was not used to int erpret this result as normal/abnormal . [facility] CenterSpavistaCHEM YGAFS0175-17-15 21:17:00 Test Item Value Reference Range Interpretation Comments Magnesium Lvl (test code = Magnesium 2.1 1.8-2.4 Lvl) [facility] CenterKxqqaxjBKOIYAKVUTTL8064-98-82 21:17:00 Test Item Value Reference Range Interpretation Comments AGAP (test code = AGAP) 9.6 10.0-20.0 [facility]oc[facility]pQTWLEBJDKILD5118-93-78 21:17:00 Test Item Value Reference Range Interpretation Comments B/C Ratio (test code = B/C Ratio) 11 6-25 [facility]QoltxswQJQERSIKIOFD2007-88-15 21:17:00 Test Item Value Reference Range Interpretation Comments Globulin (test code = Globulin) 3.8 2.0-4.0 [facility] HospitalEnypdpoDECTVPLUVNFK0936-70-17 21:17:00 Test Item Value Reference Range Interpretation Comments A/G Ratio (test code = A/G Ratio) 1.0 0.7-1.6 [facility] HospitalOroouxhGJAIXGZGTMER6697-27-59 21:17:00 Test Item Value Reference Range Interpretation Comments eGFR (test code = eGFR) 35 [facility]QvqtmljSXXCGGOJGUMG7441-72-59 21:17:00 Test Item Value Reference Range Interpretation Comments Bili Total (test code = Bili Total) 0.4 0.2-1.3 [facility] HospitalPmduhqcCPHLTKCONFJS5342-13-26 21:17:00 Test Item Value Reference Range Interpretation Comments AST (test code = AST) 16 See_Comment [Auto mated message] The system which ge nerated this result transmit yue reference range : <=37. The reference range was not used to interpr et this result as sera l/abnormal. [facility] HospitalFleccxzWDZGJYCZWGSO1033-69-51 21:17:00 Test Item Value Reference Range Interpretation Comments Alk Phos (test code = Alk Phos) 78 39-136 [facility] HospitalQfmdkawGWZBMPMWOFLJ9454-20-71 21:17:00 Test Item Value Reference Range Interpretation Comments ALT (test code = ALT) 17 See_Comment [Auto mated message] The system which ge nerated this result transmit yue reference range : <=65. The reference range was not used to interpr et this result as sera l/abnormal. [facility] HospitalYqrenzhKICGSZZOEHMI5901-70-91 21:17:00 Test Item Value Reference Range Interpretation Comments Calcium Lvl (test code = Calcium Lvl) 9.2 8.5-10.5 [facility] HospitalYxqmjhtULDZEDLYXXRN8467-36-19 21:17:00 Test Item Value Reference Range Interpretation Comments Chloride Lvl (test code = Chloride Lvl) 103 95-109 [facility] HospitalZsholftARLWPHKHOLFQ4274-78-89 21:17:00 Test Item Value Reference Range Interpretation Comments CO2 (test code = CO2) 29 24-32 [facility] HospitalFnqghniRZKLAYBUTRKL4392-25-15 21:17:00 Test Item Value Reference Range Interpretation Comments Glucose Lvl (test code = Glucose Lvl) 74 70-99 [facility] HospitalIqcgkmwZSKRFCTLSTOM2764-26-52 21:17:00 Test Item Value Reference Range Interpretation Comments BUN (test code = BUN) 18 7-22 [facility] HospitalQgrcspgDHQBDAXZGZGE2047-57-17 21:17:00 Test Item Value Reference Range Interpretation Comments Sodium Lvl (test code = Sodium Lvl) 138 135-145 [facility] HospitalFeafxdnUBBUGWWQDHIY8231-66-41 21:17:00 Test Item Value Reference Range Interpretation Comments Potassium Lvl (test code = Potassium 3.6 3.5-5.1 Lvl) [facility] HospitalSwsvapkCKXKWJQNDLZE9864-31-02 21:17:00 Test Item Value Reference Range Interpretation Comments Creatinine Lvl (test code = Creatinine 1.65 0.50-1.40 Lvl) [facility] HospitalYdtlpdbLKWBBRHEEXXP2508-47-36 21:17:00 Test Item Value Reference Range Interpretation Comments Total Protein (test code = Total 7.7 6.4-8.4 Protein) [facility] HospitalZpxaqdqVKQQZCFIGHKE5111-19-47 21:17:00 Test Item Value Reference Range Interpretation Comments Albumin Lvl (test code = Albumin Lvl) 3.9 3.5-5.0 [facility]MrwstsxPQBOXMFLXZ4470-78-04 21:17:00 Test Item Value Reference Range Interpretation Comments PTT (test code = PTT) 29.0 s 22.9-35.8 [facility]DkjghquKLSQHQHMLT0100-12-33 21:17:00 Test Item Value Reference Range Interpretation Comments INR (test code = INR) 1.06 0.85-1.17 [facility]VztxksgETJCFIMJYK1226-23-13 21:17:00 Test Item Value Reference Range Interpretation Comments PT (test code = PT) 14.1 s 12.0-14.7 [facility]ObvpzpdZVXBAUVFPN0161-36-61 21:17:00 Test Item Value Reference Range Interpretation Comments Hgb (test code = Hgb) 11.6 12.0-16.0 [facility]PfxsmsfDUMIWQBBKJ7165-10-06 21:17:00 Test Item Value Reference Range Interpretation Comments MCV (test code = MCV) 87.9 80.0-98.0 [facility]LhpenwqUPSLDPDFZE7245-91-43 21:17:00 Test Item Value Reference Range Interpretation Comments Hct (test code = Hct) 36.1 36.0-48.0 [facility]WjhletfXEDSOUUFKL5999-28-38 21:17:00 Test Item Value Reference Range Interpretation Comments WBC (test code = WBC) 6.9 3.7-10.4 [facility]JgugcfeXSUTRSPMFX3070-60-67 21:17:00 Test Item Value Reference Range Interpretation Comments RDW (test code = RDW) 15.4 11.5-14.5 [facility]BoiorffSHXSVIBWEN4448-79-89 21:17:00 Test Item Value Reference Range Interpretation Comments RBC (test code = RBC) 4.11 4.20-5.40 [place] 594266-05-18 21:17:00 Test Item Value Reference Range Interpretation Comments Platelet (test code = Platelet) 176 133-450 [facility]MwoewnnVUHEYFTYMC0471-21-07 21:17:00 Test Item Value Reference Range Interpretation Comments MPV (test code = MPV) 8.3 7.4-10.4 [facility]GeuwzyzNVQXYJALCI9793-18-86 21:17:00 Test Item Value Reference Range Interpretation Comments MCH (test code = MCH) 28.2 pg 27.0-31.0 [facility]KusrmriSCXZMROLLH4610-76-72 21:17:00 Test Item Value Reference Range Interpretation Comments MCHC (test code = MCHC) 32.1 32.0-36.0 [facility]UtwszcoTNGYQWBOKH8835-38-77 21:17:00 Test Item Value Reference Range Interpretation Comments Lymphocytes # (test code = Lymphocytes 1.6 1.0-5.5 #) [facility]LwrdrsuGAXHTHBLTC3822-99-99 21:17:00 Test Item Value Reference Range Interpretation Comments Monocytes # (test code 0.7 See_Comment [Aut omated message] The = Monocytes #) system which generated this result tra nsmitted reference range : <=0.8. The reference r xu was not used to int erpret this result as normal/abnormal . [facility]CwinutgMRPKOWWDDH7165-63-29 21:17:00 Test Item Value Reference Range Interpretation Comments Segs-Bands # (test code = Segs-Bands #) 4.5 1.5-8.1 [facility]RmgyugbINZFQBQDHY2294-59-44 21:17:00 Test Item Value Reference Range Interpretation Comments Basophils (test code = 0.3 See_Comment [Aut omated message] The Basophils) system which ge nerated this result tra nsmitted reference range : <=1.0. The reference r xu was not used to int erpret this result as normal/abnormal . [facility]GrznscpIQTIDSTXJZ7409-00-25 21:17:00 Test Item Value Reference Range Interpretation Comments Lymphocytes (test code = Lymphocytes) 23.7 20.0-40.0 [facility]KbuemrgPBMPSMDYYO1124-29-94 21:17:00 Test Item Value Reference Range Interpretation Comments Monocytes (test code = Monocytes) 10.6 2.0-12.0 [facility]VrgksglBJKUONLCVH5610-91-66 21:17:00 Test Item Value Reference Range Interpretation Comments Segs (test code = Segs) 65.4 45.0-75.0 [facility]CARDIAC ZFDCJFX5215-07-11 21:17:00 Test Item Value Reference Range Interpretation Comments Total CK (test code = Total CK) 94 12-191 [facility]CAR[facility] TSCFCXV6649-48-86 21:17:00 Test Item Value Reference Range Interpretation Comments Troponin-I (test <0.015 ng/mL See_Comment [Automated message] The code = system which ge nerated Troponin-I) this result tra nsmitted reference range : <=0.40. The reference r xu was not used to int erpret this result as normal/abnormal . [facility] CenterSpavistaCHEM BTDNU1200-21-90 21:17:00 Test Item Value Reference Range Interpretation Comments Magnesium Lvl (test code = Magnesium 2.1 1.8-2.4 Lvl) [facility] HospitalTlszmnlIGQXDEUKXRPM1018-48-32 21:17:00 Test Item Value Reference Range Interpretation Comments AGAP (test code = AGAP) 9.6 10.0-20.0 [facility] CenterVqsbqkvIWBPUMEIAJCV2565-27-19 21:17:00 Test Item Value Reference Range Interpretation Comments B/C Ratio (test code = B/C Ratio) 11 6-25 [facility] HospitalVxiqrppZQMOZMWTENFD3247-53-08 21:17:00 Test Item Value Reference Range Interpretation Comments Globulin (test code = Globulin) 3.8 2.0-4.0 [facility] HospitalYhuyzicVLPFGFCDIQUS9369-02-34 21:17:00 Test Item Value Reference Range Interpretation Comments A/G Ratio (test code = A/G Ratio) 1.0 0.7-1.6 [facility] CenterUctukeeIRAYSYOEGAPA1632-16-95 21:17:00 Test Item Value Reference Range Interpretation Comments eGFR (test code = eGFR) 35 [facility] HospitalMsqwtpwDARVGYILGEBW1214-17-65 21:17:00 Test Item Value Reference Range Interpretation Comments Bili Total (test code = Bili Total) 0.4 0.2-1.3 [facility] HospitalKaeimwjOJTTRGSFMAOE9785-11-63 21:17:00 Test Item Value Reference Range Interpretation Comments AST (test code = AST) 16 See_Comment [Auto mated message] The system which ge nerated this result transmit yue reference range : <=37. The reference range was not used to interpr et this result as sera l/abnormal. [facility] HospitalXemdcbqBWHOVZQGBTRO3679-30-15 21:17:00 Test Item Value Reference Range Interpretation Comments Alk Phos (test code = Alk Phos) 78 39-136 [facility] HospitalBhrkuzsNDUNMYNKABWI4641-94-32 21:17:00 Test Item Value Reference Range Interpretation Comments ALT (test code = ALT) 17 See_Comment [Auto mated message] The system which ge nerated this result transmit yue reference range : <=65. The reference range was not used to interpr et this result as sera l/abnormal. [facility] HospitalFnardzlSDRRLYZFTECE4683-40-72 21:17:00 Test Item Value Reference Range Interpretation Comments Calcium Lvl (test code = Calcium Lvl) 9.2 8.5-10.5 [facility] AND [id number] 12:04:00 Test Item Value Reference Range Interpretation Comments UA Sq Epi (test code = UA Sq Epi) Few /LPF [facility] AND [id number] 12:04:00 Test Item Value Reference Range Interpretation Comments UA Leuk Est (test Negative (08/08/15 7:04 code = UA Leuk Est) AM) [facility] AND [id number] 12:04:00 Test Item Value Reference Range Interpretation Comments UA WBC (test code = 2 See_Comment [Automa yue message] The UA WBC) system which ge nerated this result transmit yue reference range : <=5. The reference range was not used to interpr et this result as sera l/abnormal. [facility] AND [id number] 12:04:00 Test Item Value Reference Range Interpretation Comments UA Nitrite (test code Negative (08/08/15 7:04 = UA Nitrite) AM) [facility] AND [id number] 12:04:00 Test Item Value Reference Range Interpretation Comments UA Blood (test code = Negative (08/08/15 7:04 UA Blood) AM) [facility] AND [id number] 12:04:00 Test Item Value Reference Range Interpretation Comments UA Glucose (test code = UA Negative mg/dL Glucose) [facility] AND [id number] 12:04:00 Test Item Value Reference Range Interpretation Comments UA Bili (test code = Negative *NA*(08/08/15 UA Bili) 7:04 AM) [facility] AND [id number] 12:04:00 Test Item Value Reference Range Interpretation Comments UA Color (test code = UA Color) Straw [facility] AND [id number] 12:04:00 Test Item Value Reference Range Interpretation Comments UA Urobilinogen (test code = UA <=1.0 mg/dL 0.1-1.0 Urobilinogen) [facility] AND [id number] 12:04:00 Test Item Value Reference Range Interpretation Comments UA Ketones (test code = UA Ketones) Negative [facility] AND [id number] 12:04:00 Test Item Value Reference Range Interpretation Comments UA Bacteria (test code = UA Moderate /HPF Bacteria) [facility] AND [id number] 12:04:00 Test Item Value Reference Range Interpretation Comments UA RBC (test code = 1 See_Comment [Automa yue message] The UA RBC) system which ge nerated this result transmit yue reference range : <=2. The reference range was not used to interpr et this result as sera l/abnormal. [facility] AND [id number] 12:04:00 Test Item Value Reference Range Interpretation Comments UA Mucus (test code = UA Mucus) Few /LPF [facility] AND [id number] 12:04:00 Test Item Value Reference Range Interpretation Comments UA Turbidity (test code = Clear (08/08/15 7:04 UA Turbidity) AM) [facility] AND [id number] 12:04:00 Test Item Value Reference Range Interpretation Comments UA Spec Grav (test code = UA Spec Grav) 1.004 [facility] AND [id number] 12:04:00 Test Item Value Reference Range Interpretation Comments UA pH (test code = UA pH) 6.0 5.0-8.0 [facility] AND [id number] 12:04:00 Test Item Value Reference Range Interpretation Comments UA Protein (test code = UA Negative mg/dL Protein) [facility] AND [id number] 12:04:00 Test Item Value Reference Range Interpretation Comments UA Sq Epi (test code = UA Sq Epi) Few /LPF [facility] AND [id number] 12:04:00 Test Item Value Reference Range Interpretation Comments UA Leuk Est (test Negative (08/08/15 7:04 code = UA Leuk Est) AM) [facility] AND [id number] 12:04:00 Test Item Value Reference Range Interpretation Comments UA WBC (test code = 2 See_Comment [Automa yue message] The UA WBC) system which ge nerated this result transmit yue reference range : <=5. The reference range was not used to interpr et this result as sera l/abnormal. [facility] AND [id number] 12:04:00 Test Item Value Reference Range Interpretation Comments UA Nitrite (test code Negative (08/08/15 7:04 = UA Nitrite) AM) [facility] AND [id number] 12:04:00 Test Item Value Reference Range Interpretation Comments UA Blood (test code = Negative (08/08/15 7:04 UA Blood) AM) [facility] AND [id number] 12:04:00 Test Item Value Reference Range Interpretation Comments UA Glucose (test code = UA Negative mg/dL Glucose) [facility] AND [id number] 12:04:00 Test Item Value Reference Range Interpretation Comments UA Bili (test code = Negative *NA*(08/08/15 UA Bili) 7:04 AM) [facility] AND [id number] 12:04:00 Test Item Value Reference Range Interpretation Comments UA Color (test code = UA Color) Straw [facility] AND [id number] 12:04:00 Test Item Value Reference Range Interpretation Comments UA Urobilinogen (test code = UA <=1.0 mg/dL 0.1-1.0 Urobilinogen) [facility] AND [id number] 12:04:00 Test Item Value Reference Range Interpretation Comments UA Ketones (test code = UA Ketones) Negative [facility] AND [id number] 12:04:00 Test Item Value Reference Range Interpretation Comments UA Bacteria (test code = UA Moderate /HPF Bacteria) [facility] AND [id number] 12:04:00 Test Item Value Reference Range Interpretation Comments UA RBC (test code = 1 See_Comment [Automa yue message] The UA RBC) system which ge nerated this result transmit yue reference range : <=2. The reference range was not used to interpr et this result as sera l/abnormal. [facility] AND [id number] 12:04:00 Test Item Value Reference Range Interpretation Comments UA Mucus (test code = UA Mucus) Few /LPF [facility] AND [id number] 12:04:00 Test Item Value Reference Range Interpretation Comments UA Turbidity (test code = Clear (08/08/15 7:04 UA Turbidity) AM) [facility] AND [id number] 12:04:00 Test Item Value Reference Range Interpretation Comments UA Spec Grav (test code = UA Spec Grav) 1.004 [facility] AND [id number] 12:04:00 Test Item Value Reference Range Interpretation Comments UA pH (test code = UA pH) 6.0 5.0-8.0 [facility] AND [id number] 12:04:00 Test Item Value Reference Range Interpretation Comments UA Protein (test code = UA Negative mg/dL Protein) [facility] AND [id number] 12:04:00 Test Item Value Reference Range Interpretation Comments UA Sq Epi (test code = UA Sq Epi) Few /LPF [facility] AND [id number] 12:04:00 Test Item Value Reference Range Interpretation Comments UA Leuk Est (test Negative (08/08/15 7:04 code = UA Leuk Est) AM) [facility] AND [id number] 12:04:00 Test Item Value Reference Range Interpretation Comments UA WBC (test code = 2 See_Comment [Automa yue message] The UA WBC) system which ge nerated this result transmit yue reference range : <=5. The reference range was not used to interpr et this result as sera l/abnormal. [facility] AND [id number] 12:04:00 Test Item Value Reference Range Interpretation Comments UA Nitrite (test code Negative (08/08/15 7:04 = UA Nitrite) AM) [facility] AND [id number] 12:04:00 Test Item Value Reference Range Interpretation Comments UA Blood (test code = Negative (08/08/15 7:04 UA Blood) AM) [facility] AND [id number] 12:04:00 Test Item Value Reference Range Interpretation Comments UA Glucose (test code = UA Negative mg/dL Glucose) [facility] AND [id number] 12:04:00 Test Item Value Reference Range Interpretation Comments UA Bili (test code = Negative *NA*(08/08/15 UA Bili) 7:04 AM) [facility] AND [id number] 12:04:00 Test Item Value Reference Range Interpretation Comments UA Color (test code = UA Color) Straw [facility] AND [id number] 12:04:00 Test Item Value Reference Range Interpretation Comments UA Urobilinogen (test code = UA <=1.0 mg/dL 0.1-1.0 Urobilinogen) [facility] AND [id number] 12:04:00 Test Item Value Reference Range Interpretation Comments UA Ketones (test code = UA Ketones) Negative [facility] AND [id number] 12:04:00 Test Item Value Reference Range Interpretation Comments UA Bacteria (test code = UA Moderate /HPF Bacteria) [facility] AND [id number] 12:04:00 Test Item Value Reference Range Interpretation Comments UA RBC (test code = 1 See_Comment [Automa yue message] The UA RBC) system which ge nerated this result transmit yue reference range : <=2. The reference range was not used to interpr et this result as sera l/abnormal. [facility] AND [id number] 12:04:00 Test Item Value Reference Range Interpretation Comments UA Mucus (test code = UA Mucus) Few /LPF [facility] AND [id number] 12:04:00 Test Item Value Reference Range Interpretation Comments UA Turbidity (test code = Clear (08/08/15 7:04 UA Turbidity) AM) [facility] AND [id number] 12:04:00 Test Item Value Reference Range Interpretation Comments UA Spec Grav (test code = UA Spec Grav) 1.004 [facility] AND [id number] 12:04:00 Test Item Value Reference Range Interpretation Comments UA pH (test code = UA pH) 6.0 5.0-8.0 [facility] AND [id number] 12:04:00 Test Item Value Reference Range Interpretation Comments UA Protein (test code = UA Negative mg/dL Protein) [facility] AND [id number] 12:04:00 Test Item Value Reference Range Interpretation Comments UA Sq Epi (test code = UA Sq Epi) Few /LPF [facility] AND [id number] 12:04:00 Test Item Value Reference Range Interpretation Comments UA Leuk Est (test Negative (08/08/15 7:04 code = UA Leuk Est) AM) [facility] AND [id number] 12:04:00 Test Item Value Reference Range Interpretation Comments UA WBC (test code = 2 See_Comment [Automa yue message] The UA WBC) system which ge nerated this result transmit yue reference range : <=5. The reference range was not used to interpr et this result as sera l/abnormal. [facility] AND [id number] 12:04:00 Test Item Value Reference Range Interpretation Comments UA Nitrite (test code Negative (08/08/15 7:04 = UA Nitrite) AM) [facility] AND [id number] 12:04:00 Test Item Value Reference Range Interpretation Comments UA Blood (test code = Negative (08/08/15 7:04 UA Blood) AM) [facility] AND [id number] 12:04:00 Test Item Value Reference Range Interpretation Comments UA Glucose (test code = UA Negative mg/dL Glucose) [facility] AND [id number] 12:04:00 Test Item Value Reference Range Interpretation Comments UA Bili (test code = Negative *NA*(08/08/15 UA Bili) 7:04 AM) [facility] AND [id number] 12:04:00 Test Item Value Reference Range Interpretation Comments UA Color (test code = UA Color) Straw [facility] AND [id number] 12:04:00 Test Item Value Reference Range Interpretation Comments UA Urobilinogen (test code = UA <=1.0 mg/dL 0.1-1.0 Urobilinogen) [facility] AND [id number] 12:04:00 Test Item Value Reference Range Interpretation Comments UA Ketones (test code = UA Ketones) Negative [facility] AND [id number] 12:04:00 Test Item Value Reference Range Interpretation Comments UA Bacteria (test code = UA Moderate /HPF Bacteria) [facility] AND [id number] 12:04:00 Test Item Value Reference Range Interpretation Comments UA RBC (test code = 1 See_Comment [Automa yue message] The UA RBC) system which ge nerated this result transmit yue reference range : <=2. The reference range was not used to interpr et this result as sera l/abnormal. [facility] AND [id number] 12:04:00 Test Item Value Reference Range Interpretation Comments UA Mucus (test code = UA Mucus) Few /LPF [facility] AND [id number] 12:04:00 Test Item Value Reference Range Interpretation Comments UA Turbidity (test code = Clear (08/08/15 7:04 UA Turbidity) AM) [facility] AND [id number] 12:04:00 Test Item Value Reference Range Interpretation Comments UA Spec Grav (test code = UA Spec Grav) 1.004 [facility] AND [id number] 12:04:00 Test Item Value Reference Range Interpretation Comments UA pH (test code = UA pH) 6.0 5.0-8.0 [facility] AND [id number] 12:04:00 Test Item Value Reference Range Interpretation Comments UA Protein (test code = UA Negative mg/dL Protein) [facility] AND [id number] 12:04:00 Test Item Value Reference Range Interpretation Comments UA Sq Epi (test code = UA Sq Epi) Few /LPF [facility] AND [id number] 12:04:00 Test Item Value Reference Range Interpretation Comments UA Leuk Est (test Negative (08/08/15 7:04 code = UA Leuk Est) AM) [facility] AND [id number] 12:04:00 Test Item Value Reference Range Interpretation Comments UA WBC (test code = 2 See_Comment [Automa yue message] The UA WBC) system which ge nerated this result transmit yue reference range : <=5. The reference range was not used to interpr et this result as sera l/abnormal. [facility] AND [id number] 12:04:00 Test Item Value Reference Range Interpretation Comments UA Nitrite (test code Negative (08/08/15 7:04 = UA Nitrite) AM) [facility] AND [id number] 12:04:00 Test Item Value Reference Range Interpretation Comments UA Blood (test code = Negative (08/08/15 7:04 UA Blood) AM) [facility] AND [id number] 12:04:00 Test Item Value Reference Range Interpretation Comments UA Glucose (test code = UA Negative mg/dL Glucose) [facility] AND [id number] 12:04:00 Test Item Value Reference Range Interpretation Comments UA Bili (test code = Negative *NA*(08/08/15 UA Bili) 7:04 AM) [facility] AND [id number] 12:04:00 Test Item Value Reference Range Interpretation Comments UA Color (test code = UA Color) Straw [facility] AND [id number] 12:04:00 Test Item Value Reference Range Interpretation Comments UA Urobilinogen (test code = UA <=1.0 mg/dL 0.1-1.0 Urobilinogen) [facility] AND [id number] 12:04:00 Test Item Value Reference Range Interpretation Comments UA Ketones (test code = UA Ketones) Negative [facility] AND [id number] 12:04:00 Test Item Value Reference Range Interpretation Comments UA Bacteria (test code = UA Moderate /HPF Bacteria) [facility] AND [id number] 12:04:00 Test Item Value Reference Range Interpretation Comments UA RBC (test code = 1 See_Comment [Automa yue message] The UA RBC) system which ge nerated this result transmit yue reference range : <=2. The reference range was not used to interpr et this result as sera l/abnormal. [facility] AND [id number] 12:04:00 Test Item Value Reference Range Interpretation Comments UA Mucus (test code = UA Mucus) Few /LPF [facility] AND [id number] 12:04:00 Test Item Value Reference Range Interpretation Comments UA Turbidity (test code = Clear (08/08/15 7:04 UA Turbidity) AM) [facility] AND [id number] 12:04:00 Test Item Value Reference Range Interpretation Comments UA Spec Grav (test code = UA Spec Grav) 1.004 [facility] AND [id number] 12:04:00 Test Item Value Reference Range Interpretation Comments UA pH (test code = UA pH) 6.0 5.0-8.0 [facility] AND [id number] 12:04:00 Test Item Value Reference Range Interpretation Comments UA Protein (test code = UA Negative mg/dL Protein) [facility] AND [id number] 12:04:00 Test Item Value Reference Range Interpretation Comments UA Sq Epi (test code = UA Sq Epi) Few /LPF [facility] AND [id number] 12:04:00 Test Item Value Reference Range Interpretation Comments UA Leuk Est (test Negative (08/08/15 7:04 code = UA Leuk Est) AM) [facility] AND [id number] 12:04:00 Test Item Value Reference Range Interpretation Comments UA WBC (test code = 2 See_Comment [Automa yue message] The UA WBC) system which ge nerated this result transmit yue reference range : <=5. The reference range was not used to interpr et this result as sera l/abnormal. [facility] AND [id number] 12:04:00 Test Item Value Reference Range Interpretation Comments UA Nitrite (test code Negative (08/08/15 7:04 = UA Nitrite) AM) [facility] AND [id number] 12:04:00 Test Item Value Reference Range Interpretation Comments UA Blood (test code = Negative (08/08/15 7:04 UA Blood) AM) [facility] AND [id number] 12:04:00 Test Item Value Reference Range Interpretation Comments UA Glucose (test code = UA Negative mg/dL Glucose) [facility] AND [id number] 12:04:00 Test Item Value Reference Range Interpretation Comments UA Bili (test code = Negative *NA*(08/08/15 UA Bili) 7:04 AM) [facility] AND [id number] 12:04:00 Test Item Value Reference Range Interpretation Comments UA Color (test code = UA Color) Straw [facility] AND [id number] 12:04:00 Test Item Value Reference Range Interpretation Comments UA Urobilinogen (test code = UA <=1.0 mg/dL 0.1-1.0 Urobilinogen) [facility] AND [id number] 12:04:00 Test Item Value Reference Range Interpretation Comments UA Ketones (test code = UA Ketones) Negative [facility] AND [id number] 12:04:00 Test Item Value Reference Range Interpretation Comments UA Bacteria (test code = UA Moderate /HPF Bacteria) [facility] AND [id number] 12:04:00 Test Item Value Reference Range Interpretation Comments UA RBC (test code = 1 See_Comment [Automa yue message] The UA RBC) system which ge nerated this result transmit yue reference range : <=2. The reference range was not used to interpr et this result as sera l/abnormal. [facility] AND [id number] 12:04:00 Test Item Value Reference Range Interpretation Comments UA Mucus (test code = UA Mucus) Few /LPF [facility] AND [id number] 12:04:00 Test Item Value Reference Range Interpretation Comments UA Turbidity (test code = Clear (08/08/15 7:04 UA Turbidity) AM) [facility] AND [id number] 12:04:00 Test Item Value Reference Range Interpretation Comments UA Spec Grav (test code = UA Spec Grav) 1.004 [facility] AND [id number] 12:04:00 Test Item Value Reference Range Interpretation Comments UA pH (test code = UA pH) 6.0 5.0-8.0 [facility] AND [id number] 12:04:00 Test Item Value Reference Range Interpretation Comments UA Protein (test code = UA Negative mg/dL Protein) [facility] AND [id number] 12:04:00 Test Item Value Reference Range Interpretation Comments UA Sq Epi (test code = UA Sq Epi) Few /LPF [facility] AND [id number] 12:04:00 Test Item Value Reference Range Interpretation Comments UA Leuk Est (test Negative (08/08/15 7:04 code = UA Leuk Est) AM) [facility] AND [id number] 12:04:00 Test Item Value Reference Range Interpretation Comments UA WBC (test code = 2 See_Comment [Automa yue message] The UA WBC) system which ge nerated this result transmit yue reference range : <=5. The reference range was not used to interpr et this result as sera l/abnormal. [facility] AND [id number] 12:04:00 Test Item Value Reference Range Interpretation Comments UA Nitrite (test code Negative (08/08/15 7:04 = UA Nitrite) AM) [facility] AND [id number] 12:04:00 Test Item Value Reference Range Interpretation Comments UA Blood (test code = Negative (08/08/15 7:04 UA Blood) AM) [facility] AND [id number] 12:04:00 Test Item Value Reference Range Interpretation Comments UA Glucose (test code = UA Negative mg/dL Glucose) [facility] AND [id number] 12:04:00 Test Item Value Reference Range Interpretation Comments UA Bili (test code = Negative *NA*(08/08/15 UA Bili) 7:04 AM) [facility] AND [id number] 12:04:00 Test Item Value Reference Range Interpretation Comments UA Color (test code = UA Color) Straw [facility] AND [id number] 12:04:00 Test Item Value Reference Range Interpretation Comments UA Urobilinogen (test code = UA <=1.0 mg/dL 0.1-1.0 Urobilinogen) [facility] AND [id number] 12:04:00 Test Item Value Reference Range Interpretation Comments UA Ketones (test code = UA Ketones) Negative [facility] AND [id number] 12:04:00 Test Item Value Reference Range Interpretation Comments UA Bacteria (test code = UA Moderate /HPF Bacteria) [facility] AND [id number] 12:04:00 Test Item Value Reference Range Interpretation Comments UA RBC (test code = 1 See_Comment [Automa yue message] The UA RBC) system which ge nerated this result transmit yue reference range : <=2. The reference range was not used to interpr et this result as sera l/abnormal. [facility] AND [id number] 12:04:00 Test Item Value Reference Range Interpretation Comments UA Mucus (test code = UA Mucus) Few /LPF [facility] AND [id number] 12:04:00 Test Item Value Reference Range Interpretation Comments UA Turbidity (test code = Clear (08/08/15 7:04 UA Turbidity) AM) [facility] AND [id number] 12:04:00 Test Item Value Reference Range Interpretation Comments UA Spec Grav (test code = UA Spec Grav) 1.004 [facility] AND [id number] 12:04:00 Test Item Value Reference Range Interpretation Comments UA pH (test code = UA pH) 6.0 5.0-8.0 [facility] AND [id number] 12:04:00 Test Item Value Reference Range Interpretation Comments UA Protein (test code = UA Negative mg/dL Protein) [facility] AND [id number] 12:04:00 Test Item Value Reference Range Interpretation Comments UA Sq Epi (test code = UA Sq Epi) Few /LPF [facility] AND [id number] 12:04:00 Test Item Value Reference Range Interpretation Comments UA Leuk Est (test Negative (08/08/15 7:04 code = UA Leuk Est) AM) [facility] AND [id number] 12:04:00 Test Item Value Reference Range Interpretation Comments UA WBC (test code = 2 See_Comment [Automa yue message] The UA WBC) system which ge nerated this result transmit yue reference range : <=5. The reference range was not used to interpr et this result as sera l/abnormal. [facility] AND [id number] 12:04:00 Test Item Value Reference Range Interpretation Comments UA Nitrite (test code Negative (08/08/15 7:04 = UA Nitrite) AM) [facility] AND [id number] 12:04:00 Test Item Value Reference Range Interpretation Comments UA Blood (test code = Negative (08/08/15 7:04 UA Blood) AM) [facility] AND [id number] 12:04:00 Test Item Value Reference Range Interpretation Comments UA Glucose (test code = UA Negative mg/dL Glucose) [facility] AND [id number] 12:04:00 Test Item Value Reference Range Interpretation Comments UA Bili (test code = Negative *NA*(08/08/15 UA Bili) 7:04 AM) [facility] AND [id number] 12:04:00 Test Item Value Reference Range Interpretation Comments UA Color (test code = UA Color) Straw [facility] AND [id number] 12:04:00 Test Item Value Reference Range Interpretation Comments UA Urobilinogen (test code = UA <=1.0 mg/dL 0.1-1.0 Urobilinogen) [facility] AND [id number] 12:04:00 Test Item Value Reference Range Interpretation Comments UA Ketones (test code = UA Ketones) Negative [facility] AND [id number] 12:04:00 Test Item Value Reference Range Interpretation Comments UA Bacteria (test code = UA Moderate /HPF Bacteria) [facility] AND [id number] 12:04:00 Test Item Value Reference Range Interpretation Comments UA RBC (test code = 1 See_Comment [Automa yue message] The UA RBC) system which ge nerated this result transmit yue reference range : <=2. The reference range was not used to interpr et this result as sera l/abnormal. [facility] AND [id number] 12:04:00 Test Item Value Reference Range Interpretation Comments UA Mucus (test code = UA Mucus) Few /LPF [facility] AND [id number] 12:04:00 Test Item Value Reference Range Interpretation Comments UA Turbidity (test code = Clear (08/08/15 7:04 UA Turbidity) AM) [facility] AND [id number] 12:04:00 Test Item Value Reference Range Interpretation Comments UA Spec Grav (test code = UA Spec Grav) 1.004 [facility] AND [id number] 12:04:00 Test Item Value Reference Range Interpretation Comments UA pH (test code = UA pH) 6.0 5.0-8.0 [facility] AND [id number] 12:04:00 Test Item Value Reference Range Interpretation Comments UA Protein (test code = UA Negative mg/dL Protein) [facility] AND [id number] 12:04:00 Test Item Value Reference Range Interpretation Comments UA Sq Epi (test code = UA Sq Epi) Few /LPF [facility] AND [id number] 12:04:00 Test Item Value Reference Range Interpretation Comments UA Leuk Est (test Negative (3/31/16 7:04 code = UA Leuk Est) AM) [facility] AND [id number] 12:04:00 Test Item Value Reference Range Interpretation Comments UA WBC (test code = 2 See_Comment [Automa yue message] The UA WBC) system which ge nerated this result transmit yue reference range : <=5. The reference range was not used to interpr et this result as sera l/abnormal. [facility] AND [id number] 12:04:00 Test Item Value Reference Range Interpretation Comments UA Nitrite (test code Negative (08/08/15 7:04 = UA Nitrite) AM) [facility] AND [id number] 12:04:00 Test Item Value Reference Range Interpretation Comments UA Blood (test code = Negative (08/08/15 7:04 UA Blood) AM) [facility] AND [id number] 12:04:00 Test Item Value Reference Range Interpretation Comments UA Glucose (test code = UA Negative mg/dL Glucose) [facility] AND [id number] 12:04:00 Test Item Value Reference Range Interpretation Comments UA Bili (test code = Negative *NA*(08/08/15 UA Bili) 7:04 AM) [facility] AND [id number] 12:04:00 Test Item Value Reference Range Interpretation Comments UA Color (test code = UA Color) Straw [facility] AND [id number] 12:04:00 Test Item Value Reference Range Interpretation Comments UA Urobilinogen (test code = UA <=1.0 mg/dL 0.1-1.0 Urobilinogen) [facility] AND [id number] 12:04:00 Test Item Value Reference Range Interpretation Comments UA Ketones (test code = UA Ketones) Negative [facility] AND [id number] 12:04:00 Test Item Value Reference Range Interpretation Comments UA Bacteria (test code = UA Moderate /HPF Bacteria) [facility] AND [id number] 12:04:00 Test Item Value Reference Range Interpretation Comments UA RBC (test code = 1 See_Comment [Automa yue message] The UA RBC) system which ge nerated this result transmit yue reference range : <=2. The reference range was not used to interpr et this result as sera l/abnormal. [facility] AND [id number] 12:04:00 Test Item Value Reference Range Interpretation Comments UA Mucus (test code = UA Mucus) Few /LPF [facility] AND [id number] 12:04:00 Test Item Value Reference Range Interpretation Comments UA Turbidity (test code = Clear (08/08/15 7:04 UA Turbidity) AM) [facility] AND [id number] 12:04:00 Test Item Value Reference Range Interpretation Comments UA Spec Grav (test code = UA Spec Grav) 1.004 [facility] AND [id number] 12:04:00 Test Item Value Reference Range Interpretation Comments UA pH (test code = UA pH) 6.0 5.0-8.0 [facility] AND [id number] 12:04:00 Test Item Value Reference Range Interpretation Comments UA Protein (test code = UA Negative mg/dL Protein) [facility]2016-03-31 09:41:00 Test Item Value Reference Range Interpretation Comments Magnesium Lvl (test code = Magnesium 2.1 1.8-2.4 Lvl) [facility]2016-03-31 09:41:00 Test Item Value Reference Range Interpretation Comments eGFR (test code = eGFR) 47 [facility]2016-03-31 09:41:00 Test Item Value Reference Range Interpretation Comments Calcium Lvl (test code = Calcium Lvl) 8.3 8.5-10.5 [facility]2016-03-31 09:41:00 Test Item Value Reference Range Interpretation Comments AGAP (test code = AGAP) 13.1 10.0-20.0 [facility]2016-03-31 09:41:00 Test Item Value Reference Range Interpretation Comments Potassium Lvl (test code = Potassium 3.1 3.5-5.1 Lvl) [facility]2016-03-31 09:41:00 Test Item Value Reference Range Interpretation Comments Chloride Lvl (test code = Chloride Lvl) 112 95-109 [facility]2016-03-31 09:41:00 Test Item Value Reference Range Interpretation Comments CO2 (test code = CO2) 26 -32 [facility]2016-03-31 09:41:00 Test Item Value Reference Range Interpretation Comments Sodium Lvl (test code = Sodium Lvl) 148 135-145 [facility]2016-03-31 09:41:00 Test Item Value Reference Range Interpretation Comments Creatinine Lvl (test code = Creatinine 1.31 0.50-1.40 Lvl) [facility]2016-03-31 09:41:00 Test Item Value Reference Range Interpretation Comments BUN (test code = BUN) 12 7-22 [place] 702886-03-31 09:41:00 Test Item Value Reference Range Interpretation Comments Glucose Lvl (test code = Glucose Lvl) 71 70-99 [id number] 09:41:00 Test Item Value Reference Range Interpretation Comments MCV (test code = MCV) 86.3 80.0-98.0 [place] [address]-03-31 09:41:00 Test Item Value Reference Range Interpretation Comments MPV (test code = MPV) 9.0 7.4-10.4 [facility]qayu[facility]HDPAY[facility]BL3902-27-12 09:41:00 Test Item Value Reference Range Interpretation Comments Platelet (test code = Platelet) 114 133-450 [id number] 09:41:00 Test Item Value Reference Range Interpretation Comments RDW (test code = RDW) 13.9 11.5-14.5 [facility]LtkjsqiKAJTGKJTLF1846-62-92 09:41:00 Test Item Value Reference Range Interpretation Comments MCHC (test code = MCHC) 32.1 32.0-36.0 [facility]xrypfzCKXNEYNMKG3915-54-17 09:41:00 Test Item Value Reference Range Interpretation Comments Hct (test code = Hct) 32.0 36.0-48.0 [facility]CoqcyloXFNJFIQXMV4203-90-00 09:41:00 Test Item Value Reference Range Interpretation Comments MCH (test code = MCH) 27.7 pg 27.0-31.0 [facility]svwqoxEGSMYEMBLU9615-58-79 09:41:00 Test Item Value Reference Range Interpretation Comments WBC (test code = WBC) 3.7 3.7-10.4 [place] 594266-03-31 09:41:00 Test Item Value Reference Range Interpretation Comments Hgb (test code = Hgb) 10.3 12.0-16.0 [facility]WhuhaziLZFECROMLJ2863-76-20 09:41:00 Test Item Value Reference Range Interpretation Comments RBC (test code = RBC) 3.70 4.20-5.40 [facility]KkynvjgBWXQKFFNQD0418-84-85 09:41:00 Test Item Value Reference Range Interpretation Comments Segs (test code = Segs) 33.0 45.0-75.0 [facility]NwdcmlqBFHBNDLBTS8232-20-62 09:41:00 Test Item Value Reference Range Interpretation Comments Bands (test code = 0.0 See_Comment [Automat ed message] The Bands) system which ge nerated this result transmit yue reference range : <=11.0. The reference r xu was not used to interpr et this result as sera l/abnormal. [facility]ZsgmcgtZHKJAQCSLM5973-92-02 09:41:00 Test Item Value Reference Range Interpretation Comments Lymphocytes (test code = Lymphocytes) 61.0 20.0-40.0 [facility]ZyzwpdfLDQOYHZAST4841-87-79 09:41:00 Test Item Value Reference Range Interpretation Comments Monocytes (test code = Monocytes) 5.0 2.0-12.0 [facility]FjiazsrDIJXIDZDBS7953-77-93 09:41:00 Test Item Value Reference Range Interpretation Comments Plt Morph (test code = Normal (08/08/15 4:41 Plt Morph) AM) [facility]zvjsjqVBJVRBSJUV8371-61-28 09:41:00 Test Item Value Reference Range Interpretation Comments RBC Morph (test code = Normal (08/08/15 4:41 RBC Morph) AM) [facility]kcikuaYZILNHDEKW0168-97-29 09:41:00 Test Item Value Reference Range Interpretation Comments Myelocytes (test code = Myelocytes) 1.0 [place] 594266-03-31 09:41:00 Test Item Value Reference Range Interpretation Comments Atypical Lymphs (test code = Atypical 0.0 Lymphs) [id number] 09:41:00 Test Item Value Reference Range Interpretation Comments Monocytes # (test code 0.2 See_Comment [Aut omated message] The = Monocytes #) system which generated this result tra nsmitted reference range : <=0.8. The reference r xu was not used to int erpret this result as normal/abnormal . [place] 594266-03-31 09:41:00 Test Item Value Reference Range Interpretation Comments Segs-Bands # (test code = Segs-Bands #) 1.2 1.5-8.1 [facility]ghdlysUWMKRZGFHV5456[facility]26-66 09:41:00 Test Item Value Reference Range Interpretation Comments Lymphocytes # (test code = Lymphocytes 2.3 1.0-5.5 #) [facility]WmcyxioFUASIO3353-38-72 09:41:00 Test Item Value Reference Range Interpretation Comments CHD Risk (test code = CHD Risk) 3.06 3.90-5.80 [place] [address]-03-31 09:41:00 Test Item Value Reference Range Interpretation Comments LDL (Calculated) (test code = LDL 31 (Calculated)) [facility]viewDkbansvJSOFSH4928-15-92 09:41:00 Test Item Value Reference Range Interpretation Comments HDL (test code = HDL) 31 [facility]viewIsnxokkXCZTEI5938-56-80 09:41:00 Test Item Value Reference Range Interpretation Comments Chol (test code = Chol) 95 [facility]viewZjgbeffMHIGWM4977-71-61 09:41:00 Test Item Value Reference Range Interpretation Comments Trig (test code = Trig) 165 [facility]viewTiaxivsKSGDHN3636-44-99 09:41:00 Test Item Value Reference Range Interpretation Comments VLDL (test code = VLDL) 33 [facility]2016-03-31 09:41:00 Test Item Value Reference Range Interpretation Comments Magnesium Lvl (test code = Magnesium 2.1 1.8-2.4 Lvl) [facility]2016-03-31 09:41:00 Test Item Value Reference Range Interpretation Comments eGFR (test code = eGFR) 47 [facility]2016-03-31 09:41:00 Test Item Value Reference Range Interpretation Comments Calcium Lvl (test code = Calcium Lvl) 8.3 8.5-10.5 [facility]2016-03-31 09:41:00 Test Item Value Reference Range Interpretation Comments AGAP (test code = AGAP) 13.1 10.0-20.0 [facility]2016-03-31 09:41:00 Test Item Value Reference Range Interpretation Comments Potassium Lvl (test code = Potassium 3.1 3.5-5.1 Lvl) [facility]2016-03-31 09:41:00 Test Item Value Reference Range Interpretation Comments Chloride Lvl (test code = Chloride Lvl) 112 95-109 [facility]2016-03-31 09:41:00 Test Item Value Reference Range Interpretation Comments CO2 (test code = CO2) 26 24-32 [place] 702886-03-31 09:41:00 Test Item Value Reference Range Interpretation Comments Sodium Lvl (test code = Sodium Lvl) 148 135-145 [facility]2016-03-31 09:41:00 Test Item Value Reference Range Interpretation Comments Creatinine Lvl (test code = Creatinine 1.31 0.50-1.40 Lvl) [facility]2016-03-31 09:41:00 Test Item Value Reference Range Interpretation Comments BUN (test code = BUN) 12 7-22 [facility]2016-03-31 09:41:00 Test Item Value Reference Range Interpretation Comments Glucose Lvl (test code = Glucose Lvl) 71 70-99 [facility]MxcsxvkCVSTQDHKNB8383-33-91 09:41:00 Test Item Value Reference Range Interpretation Comments MCV (test code = MCV) 86.3 80.0-98.0 [facility]ZnhethqIJKDUUYLSA4181-98-73 09:41:00 Test Item Value Reference Range Interpretation Comments MPV (test code = MPV) 9.0 7.4-10.4 [facility]HmgqdtiZJLAMHQCMW8317-41-90 09:41:00 Test Item Value Reference Range Interpretation Comments Platelet (test code = Platelet) 114 133-450 [facility]UuyfbavCIUUFXHUYU9428-65-48 09:41:00 Test Item Value Reference Range Interpretation Comments RDW (test code = RDW) 13.9 11.5-14.5 [place] 594266-03-31 09:41:00 Test Item Value Reference Range Interpretation Comments MCHC (test code = MCHC) 32.1 32.0-36.0 [facility]HzogpayFEVGIBSEAP2212-86-26 09:41:00 Test Item Value Reference Range Interpretation Comments Hct (test code = Hct) 32.0 36.0-48.0 [facility]HmnhlaeRJKBDYIBXB0789-27-00 09:41:00 Test Item Value Reference Range Interpretation Comments MCH (test code = MCH) 27.7 pg 27.0-31.0 [place] 594266-03-31 09:41:00 Test Item Value Reference Range Interpretation Comments WBC (test code = WBC) 3.7 3.7-10.4 [facility]HlxwaefMJCGBSSZPC3979-32-22 09:41:00 Test Item Value Reference Range Interpretation Comments Hgb (test code = Hgb) 10.3 12.0-16.0 [facility]NtkmafyDDLTYSJRJK4485-61-38 09:41:00 Test Item Value Reference Range Interpretation Comments RBC (test code = RBC) 3.70 4.20-5.40 [facility]SyusuagUEUTHEUFHB2395-94-58 09:41:00 Test Item Value Reference Range Interpretation Comments Segs (test code = Segs) 33.0 45.0-75.0 [facility]WhayydkSWEMAYCCPO5357-03-35 09:41:00 Test Item Value Reference Range Interpretation Comments Bands (test code = 0.0 See_Comment [Automat ed message] The Bands) system which ge nerated this result transmit yue reference range : <=11.0. The reference r xu was not used to interpr et this result as sera l/abnormal. [facility]UlhdphgSEPJANAHZI8126-74-70 09:41:00 Test Item Value Reference Range Interpretation Comments Lymphocytes (test code = Lymphocytes) 61.0 20.0-40.0 [facility]NfxpfchTZOFPRFKXY6578-83-93 09:41:00 Test Item Value Reference Range Interpretation Comments Monocytes (test code = Monocytes) 5.0 2.0-12.0 [facility]ZhckoarQUYXMJOJUN3736-45-36 09:41:00 Test Item Value Reference Range Interpretation Comments Plt Morph (test code = Normal (08/08/15 4:41 Plt Morph) AM) [facility]BjgzhuzVNNQWCTEDY0238-97-84 09:41:00 Test Item Value Reference Range Interpretation Comments RBC Morph (test code = Normal (08/08/15 4:41 RBC Morph) AM) [facility]VbgdharNJFUDICVQW8535-06-26 09:41:00 Test Item Value Reference Range Interpretation Comments Myelocytes (test code = Myelocytes) 1.0 [facility]EepioxrWCMQEESUNE3568-61-36 09:41:00 Test Item Value Reference Range Interpretation Comments Atypical Lymphs (test code = Atypical 0.0 Lymphs) [facility]UnwmvleAOWCSDPTOJ5543-51-04 09:41:00 Test Item Value Reference Range Interpretation Comments Monocytes # (test code 0.2 See_Comment [Aut omated message] The = Monocytes #) system which generated this result tra nsmitted reference range : <=0.8. The reference r xu was not used to int erpret this result as normal/abnormal . [facility]TjwtgqwSEDNHVKSFP4241-12-11 09:41:00 Test Item Value Reference Range Interpretation Comments Segs-Bands # (test code = Segs-Bands #) 1.2 1.5-8.1 [facility]EyswdzxXLXGMCZSEQ3713-00-53 09:41:00 Test Item Value Reference Range Interpretation Comments Lymphocytes # (test code = Lymphocytes 2.3 1.0-5.5 #) [facility]QpbvuypOBLCLP6713-19-77 09:41:00 Test Item Value Reference Range Interpretation Comments CHD Risk (test code = CHD Risk) 3.06 3.90-5.80 [facility]viewIyvuaksTHGZTY6740-08-89 09:41:00 Test Item Value Reference Range Interpretation Comments LDL (Calculated) (test code = LDL 31 (Calculated)) [facility]viewLplibnhTEMBAR2450-17-45 09:41:00 Test Item Value Reference Range Interpretation Comments HDL (test code = HDL) 31 [facility] 09:41:00 Test Item Value Reference Range Interpretation Comments Chol (test code = Chol) 95 [facility]viewInwotmtWLMDGB4855-17-34 09:41:00 Test Item Value Reference Range Interpretation Comments Trig (test code = Trig) 165 [facility]viewYxeamwiOXUKQX3692-03-22 09:41:00 Test Item Value Reference Range Interpretation Comments VLDL (test code = VLDL) 33 [facility]Dig[facility] LVXZR8741-49-75 09:41:00 Test Item Value Reference Range Interpretation Comments Magnesium Lvl (test code = Magnesium 2.1 1.8-2.4 Lvl) [facility] SVJNE6851-86-68 09:41:00 Test Item Value Reference Range Interpretation Comments eGFR (test code = eGFR) 47 [facility]2016-03-31 09:41:00 Test Item Value Reference Range Interpretation Comments Calcium Lvl (test code = Calcium Lvl) 8.3 8.5-10.5 [facility] RBMKI4116-84-76 09:41:00 Test Item Value Reference Range Interpretation Comments AGAP (test code = AGAP) 13.1 10.0-20.0 [facility]2016-03-31 09:41:00 Test Item Value Reference Range Interpretation Comments Potassium Lvl (test code = Potassium 3.1 3.5-5.1 Lvl) [place] 702886-03-31 09:41:00 Test Item Value Reference Range Interpretation Comments Chloride Lvl (test code = Chloride Lvl) 112 95-109 [facility]2016-03-31 09:41:00 Test Item Value Reference Range Interpretation Comments CO2 (test code = CO2) 26 24-32 [facility]2016-03-31 09:41:00 Test Item Value Reference Range Interpretation Comments Sodium Lvl (test code = Sodium Lvl) 148 135-145 [facility]2016-03-31 09:41:00 Test Item Value Reference Range Interpretation Comments Creatinine Lvl (test code = Creatinine 1.31 0.50-1.40 Lvl) [facility]2016-03-31 09:41:00 Test Item Value Reference Range Interpretation Comments BUN (test code = BUN) 12 7-22 [facility]2016-03-31 09:41:00 Test Item Value Reference Range Interpretation Comments Glucose Lvl (test code = Glucose Lvl) 71 70-99 [facility]RarsnoxSRCUHEFMSW2498-80-37 09:41:00 Test Item Value Reference Range Interpretation Comments MCV (test code = MCV) 86.3 80.0-98.0 [facility]KjvjjzjZPWBPVYLNQ1904-71-29 09:41:00 Test Item Value Reference Range Interpretation Comments MPV (test code = MPV) 9.0 7.4-10.4 [place] 594266-03-31 09:41:00 Test Item Value Reference Range Interpretation Comments Platelet (test code = Platelet) 114 133-450 [facility]AiptcfwTLZFBGIOZH9570-19-18 09:41:00 Test Item Value Reference Range Interpretation Comments RDW (test code = RDW) 13.9 11.5-14.5 [place] 594266-03-31 09:41:00 Test Item Value Reference Range Interpretation Comments MCHC (test code = MCHC) 32.1 32.0-36.0 [place] 594266-03-31 09:41:00 Test Item Value Reference Range Interpretation Comments Hct (test code = Hct) 32.0 36.0-48.0 [facility]EidavqcEKRSDPRCOU5830-60-23 09:41:00 Test Item Value Reference Range Interpretation Comments MCH (test code = MCH) 27.7 pg 27.0-31.0 [facility]RertiufTPWCVCZWFQ4301-65-23 09:41:00 Test Item Value Reference Range Interpretation Comments WBC (test code = WBC) 3.7 3.7-10.4 [facility]XcpsbxiMTNABMZLDF7294-87-04 09:41:00 Test Item Value Reference Range Interpretation Comments Hgb (test code = Hgb) 10.3 12.0-16.0 [facility]TrfauntIOSZVMQEUB2942-39-33 09:41:00 Test Item Value Reference Range Interpretation Comments RBC (test code = RBC) 3.70 4.20-5.40 [facility]NktkffvKDWNFPSSZS6077-21-17 09:41:00 Test Item Value Reference Range Interpretation Comments Segs (test code = Segs) 33.0 45.0-75.0 [facility]TyhjhzsNFKBHHBKCM3275-53-47 09:41:00 Test Item Value Reference Range Interpretation Comments Bands (test code = 0.0 See_Comment [Automat ed message] The Bands) system which ge nerated this result transmit yue reference range : <=11.0. The reference r xu was not used to interpr et this result as sera l/abnormal. [facility]TvuxrveQJUZNKZHPE9929-16-41 09:41:00 Test Item Value Reference Range Interpretation Comments Lymphocytes (test code = Lymphocytes) 61.0 20.0-40.0 [facility]UqvhndrWZDELUGDXP1655-29-66 09:41:00 Test Item Value Reference Range Interpretation Comments Monocytes (test code = Monocytes) 5.0 2.0-12.0 [facility]XdzzesoZUERNBYNFR2277-96-35 09:41:00 Test Item Value Reference Range Interpretation Comments Plt Morph (test code = Normal (08/08/15 4:41 Plt Morph) AM) [facility]HfhuiivVHDRGBWMMU1621-19-40 09:41:00 Test Item Value Reference Range Interpretation Comments RBC Morph (test code = Normal (08/08/15 4:41 RBC Morph) AM) [facility]GfjteveRTWAEOSKOQ9395-15-19 09:41:00 Test Item Value Reference Range Interpretation Comments Myelocytes (test code = Myelocytes) 1.0 [facility]AvyounqKZQVACXWGX6886-63-97 09:41:00 Test Item Value Reference Range Interpretation Comments Atypical Lymphs (test code = Atypical 0.0 Lymphs) [facility]EgotdpqVOIHRGRDXO9808-10-04 09:41:00 Test Item Value Reference Range Interpretation Comments Monocytes # (test code 0.2 See_Comment [Aut omated message] The = Monocytes #) system which generated this result tra nsmitted reference range : <=0.8. The reference r xu was not used to int erpret this result as normal/abnormal . [facility]PaxiqquHSIWDEBEQY4871-00-75 09:41:00 Test Item Value Reference Range Interpretation Comments Segs-Bands # (test code = Segs-Bands #) 1.2 1.5-8.1 [place] 594266-03-31 09:41:00 Test Item Value Reference Range Interpretation Comments Lymphocytes # (test code = Lymphocytes 2.3 1.0-5.5 #) [facility]viewOyguobiAZTYQE6552-81-32 09:41:00 Test Item Value Reference Range Interpretation Comments CHD Risk (test code = CHD Risk) 3.06 3.90-5.80 [facility]viewZzmssebEIQDJT2356-42-60 09:41:00 Test Item Value Reference Range Interpretation Comments LDL (Calculated) (test code = LDL 31 (Calculated)) [place] [address]-03-31 09:41:00 Test Item Value Reference Range Interpretation Comments HDL (test code = HDL) 31 [facility]viewHcubgraZWVIUP6551-64-72 09:41:00 Test Item Value Reference Range Interpretation Comments Chol (test code = Chol) 95 [facility]viewUaxvutqELIWSS4380-99-64 09:41:00 Test Item Value Reference Range Interpretation Comments Trig (test code = Trig) 165 [facility]viewLpyorayCDHKSD0077-54-54 09:41:00 Test Item Value Reference Range Interpretation Comments VLDL (test code = VLDL) 33 [facility]2016-03-31 09:41:00 Test Item Value Reference Range Interpretation Comments Magnesium Lvl (test code = Magnesium 2.1 1.8-2.4 Lvl) [facility]2016-03-31 09:41:00 Test Item Value Reference Range Interpretation Comments eGFR (test code = eGFR) 47 [facility]2016-03-31 09:41:00 Test Item Value Reference Range Interpretation Comments Magnesium Lvl (test code = Magnesium 2.1 1.8-2.4 Lvl) [facility]2016-03-31 09:41:00 Test Item Value Reference Range Interpretation Comments eGFR (test code = eGFR) 47 [facility]2016-03-31 09:41:00 Test Item Value Reference Range Interpretation Comments Calcium Lvl (test code = Calcium Lvl) 8.3 8.5-10.5 [facility]2016-03-31 09:41:00 Test Item Value Reference Range Interpretation Comments AGAP (test code = AGAP) 13.1 10.0-20.0 [facility]2016-03-31 09:41:00 Test Item Value Reference Range Interpretation Comments Potassium Lvl (test code = Potassium 3.1 3.5-5.1 Lvl) [facility]2016-03-31 09:41:00 Test Item Value Reference Range Interpretation Comments Chloride Lvl (test code = Chloride Lvl) 112 95-109 [facility]2016-03-31 09:41:00 Test Item Value Reference Range Interpretation Comments CO2 (test code = CO2) 26 24-32 [facility]2016-03-31 09:41:00 Test Item Value Reference Range Interpretation Comments Calcium Lvl (test code = Calcium Lvl) 8.3 8.5-10.5 [facility]2016-03-31 09:41:00 Test Item Value Reference Range Interpretation Comments Sodium Lvl (test code = Sodium Lvl) 148 135-145 [facility]2016-03-31 09:41:00 Test Item Value Reference Range Interpretation Comments Creatinine Lvl (test code = Creatinine 1.31 0.50-1.40 Lvl) [facility]2016-03-31 09:41:00 Test Item Value Reference Range Interpretation Comments BUN (test code = BUN) 12 7-22 [facility]2016-03-31 09:41:00 Test Item Value Reference Range Interpretation Comments Glucose Lvl (test code = Glucose Lvl) 71 70-99 [facility]TfewnqiPLJOBCWJXN1042-10-18 09:41:00 Test Item Value Reference Range Interpretation Comments MCV (test code = MCV) 86.3 80.0-98.0 [facility]QdnhkabEBMVPWLBWP4236-55-74 09:41:00 Test Item Value Reference Range Interpretation Comments MPV (test code = MPV) 9.0 7.4-10.4 [facility]FjmadllXJAQFSCQCZ7652-59-46 09:41:00 Test Item Value Reference Range Interpretation Comments Platelet (test code = Platelet) 114 133-450 [facility]OysokzvOGFLQWHOSP9153-12-28 09:41:00 Test Item Value Reference Range Interpretation Comments RDW (test code = RDW) 13.9 11.5-14.5 [facility]PmwqyipEJZCRTGUAL2784-83-89 09:41:00 Test Item Value Reference Range Interpretation Comments MCHC (test code = MCHC) 32.1 32.0-36.0 [facility]RbmtscoYZGOSXAFYZ6281-69-04 09:41:00 Test Item Value Reference Range Interpretation Comments Hct (test code = Hct) 32.0 36.0-48.0 [facility]2016-03-31 09:41:00 Test Item Value Reference Range Interpretation Comments AGAP (test code = AGAP) 13.1 10.0-20.0 [facility]QipodddSKMXNDXUUI7183-69-33 09:41:00 Test Item Value Reference Range Interpretation Comments MCH (test code = MCH) 27.7 pg 27.0-31.0 [facility]UfhtjxiPCVDGOSMSC0313-30-40 09:41:00 Test Item Value Reference Range Interpretation Comments WBC (test code = WBC) 3.7 3.7-10.4 [facility]SfskdhiNOVPGOUXXZ6382-41-33 09:41:00 Test Item Value Reference Range Interpretation Comments Hgb (test code = Hgb) 10.3 12.0-16.0 [facility]VxidequTMIQXPRCPK7998-99-84 09:41:00 Test Item Value Reference Range Interpretation Comments RBC (test code = RBC) 3.70 4.20-5.40 [facility]JyefyyrPOKENEFLKK8410-28-21 09:41:00 Test Item Value Reference Range Interpretation Comments Segs (test code = Segs) 33.0 45.0-75.0 [facility]QzckrisDEYUGTYMPE8916-03-02 09:41:00 Test Item Value Reference Range Interpretation Comments Bands (test code = 0.0 See_Comment [Automat ed message] The Bands) system which ge nerated this result transmit yue reference range : <=11.0. The reference r xu was not used to interpr et this result as sera l/abnormal. [facility]NofcghyHEAZBDQTEF4125-77-20 09:41:00 Test Item Value Reference Range Interpretation Comments Lymphocytes (test code = Lymphocytes) 61.0 20.0-40.0 [facility]WrsmmgsHURZTMXPMR1151-79-79 09:41:00 Test Item Value Reference Range Interpretation Comments Monocytes (test code = Monocytes) 5.0 2.0-12.0 [facility]LfmvxkgJGSHWLCEJH3337-30-73 09:41:00 Test Item Value Reference Range Interpretation Comments Plt Morph (test code = Normal (08/08/15 4:41 Plt Morph) AM) [facility]VukiycoMHOLLKKGMJ3936-30-04 09:41:00 Test Item Value Reference Range Interpretation Comments RBC Morph (test code = Normal (08/08/15 4:41 RBC Morph) AM) [facility]2016-03-31 09:41:00 Test Item Value Reference Range Interpretation Comments Potassium Lvl (test code = Potassium 3.1 3.5-5.1 Lvl) [facility]FvaxxigJPEEKOYUEE9038-45-73 09:41:00 Test Item Value Reference Range Interpretation Comments Myelocytes (test code = Myelocytes) 1.0 [facility]GwrwdorUJNYNJEBBX8610-12-52 09:41:00 Test Item Value Reference Range Interpretation Comments Atypical Lymphs (test code = Atypical 0.0 Lymphs) [facility]DlmrvnbVUZARTEKWT7401-05-50 09:41:00 Test Item Value Reference Range Interpretation Comments Monocytes # (test code 0.2 See_Comment [Aut omated message] The = Monocytes #) system which generated this result tra nsmitted reference range : <=0.8. The reference r xu was not used to int erpret this result as normal/abnormal . [facility]FpjqrblHVIFYJLSDW6359-00-50 09:41:00 Test Item Value Reference Range Interpretation Comments Segs-Bands # (test code = Segs-Bands #) 1.2 1.5-8.1 [facility]NbhwmytZTRLYLTTNJ1667-25-10 09:41:00 Test Item Value Reference Range Interpretation Comments Lymphocytes # (test code = Lymphocytes 2.3 1.0-5.5 #) [facility]QqrudxsCMIYFV1410-08-84 09:41:00 Test Item Value Reference Range Interpretation Comments CHD Risk (test code = CHD Risk) 3.06 3.90-5.80 [place] 802996-03-31 09:41:00 Test Item Value Reference Range Interpretation Comments LDL (Calculated) (test code = LDL 31 (Calculated)) [place] [address]-03-31 09:41:00 Test Item Value Reference Range Interpretation Comments HDL (test code = HDL) 31 [facility]viewXacscplJPDAXZ8662-00-06 09:41:00 Test Item Value Reference Range Interpretation Comments Chol (test code = Chol) 95 [facility]viewAqmltyvNZMBYK4208-71-03 09:41:00 Test Item Value Reference Range Interpretation Comments Trig (test code = Trig) 165 [facility]2016-03-31 09:41:00 Test Item Value Reference Range Interpretation Comments Chloride Lvl (test code = Chloride Lvl) 112 95-109 [facility]viewZwfhkxxFUFJFY3558-86-50 09:41:00 Test Item Value Reference Range Interpretation Comments VLDL (test code = VLDL) 33 [facility]2016-03-31 09:41:00 Test Item Value Reference Range Interpretation Comments CO2 (test code = CO2) 26 24-32 [facility]2016-03-31 09:41:00 Test Item Value Reference Range Interpretation Comments Sodium Lvl (test code = Sodium Lvl) 148 135-145 [facility]2016-03-31 09:41:00 Test Item Value Reference Range Interpretation Comments Creatinine Lvl (test code = Creatinine 1.31 0.50-1.40 Lvl) [facility]2016-03-31 09:41:00 Test Item Value Reference Range Interpretation Comments BUN (test code = BUN) 12 7-22 [facility]2016-03-31 09:41:00 Test Item Value Reference Range Interpretation Comments Glucose Lvl (test code = Glucose Lvl) 71 70-99 [facility]LjqksmkNPVIOJWUYH7288-10-16 09:41:00 Test Item Value Reference Range Interpretation Comments MCV (test code = MCV) 86.3 80.0-98.0 [facility]GwrmgqePPXXPGJUTU0950-77-14 09:41:00 Test Item Value Reference Range Interpretation Comments MPV (test code = MPV) 9.0 7.4-10.4 [facility]MzdshypZSGWVSKLPO7953-63-95 09:41:00 Test Item Value Reference Range Interpretation Comments Platelet (test code = Platelet) 114 133-450 [facility]OlbdqlaRMZCNBCJRD2239-27-02 09:41:00 Test Item Value Reference Range Interpretation Comments RDW (test code = RDW) 13.9 11.5-14.5 [facility]OppiewaZCFYJXGZIK6363-10-66 09:41:00 Test Item Value Reference Range Interpretation Comments MCHC (test code = MCHC) 32.1 32.0-36.0 [facility]ElsuznhBGFFHHQQEG1918-08-32 09:41:00 Test Item Value Reference Range Interpretation Comments Hct (test code = Hct) 32.0 36.0-48.0 [facility]WtcxxzbSIZOVLEXWE5261-06-98 09:41:00 Test Item Value Reference Range Interpretation Comments MCH (test code = MCH) 27.7 pg 27.0-31.0 [facility]HkzlbtgXMDZKDOXIC2976-51-03 09:41:00 Test Item Value Reference Range Interpretation Comments WBC (test code = WBC) 3.7 3.7-10.4 [facility]QwuasefANQOCAFVEB2355-28-16 09:41:00 Test Item Value Reference Range Interpretation Comments Hgb (test code = Hgb) 10.3 12.0-16.0 [facility]OfrwuqlKWSRLADQQW8561-09-47 09:41:00 Test Item Value Reference Range Interpretation Comments RBC (test code = RBC) 3.70 4.20-5.40 [facility]KtwglsnXSCYUAMSUS7328-91-50 09:41:00 Test Item Value Reference Range Interpretation Comments Segs (test code = Segs) 33.0 45.0-75.0 [facility]CqqyvfcKMOJSFRFNL4833-21-85 09:41:00 Test Item Value Reference Range Interpretation Comments Bands (test code = 0.0 See_Comment [Automat ed message] The Bands) system which ge nerated this result transmit yue reference range : <=11.0. The reference r xu was not used to interpr et this result as sera l/abnormal. [facility]IzeajqnDMRPCZVSWY3695-20-35 09:41:00 Test Item Value Reference Range Interpretation Comments Lymphocytes (test code = Lymphocytes) 61.0 20.0-40.0 [facility]KlunjivJUEJIXHDZM1124-52-45 09:41:00 Test Item Value Reference Range Interpretation Comments Monocytes (test code = Monocytes) 5.0 2.0-12.0 [facility]BgxvxtoQCZRFTWZGM6833-27-62 09:41:00 Test Item Value Reference Range Interpretation Comments Plt Morph (test code = Normal (08/08/15 4:41 Plt Morph) AM) [facility]AnbsmueCNUYGNECEV5594-12-80 09:41:00 Test Item Value Reference Range Interpretation Comments RBC Morph (test code = Normal (08/08/15 4:41 RBC Morph) AM) [facility]JiinqmoASYVJEQDUP3344-44-73 09:41:00 Test Item Value Reference Range Interpretation Comments Myelocytes (test code = Myelocytes) 1.0 [facility]KewhnvkQIGBOTEGIK5725-41-60 09:41:00 Test Item Value Reference Range Interpretation Comments Atypical Lymphs (test code = Atypical 0.0 Lymphs) [facility]BttbqrnIJZDPEKSBO1858-16-55 09:41:00 Test Item Value Reference Range Interpretation Comments Monocytes # (test code 0.2 See_Comment [Aut omated message] The = Monocytes #) system which generated this result tra nsmitted reference range : <=0.8. The reference r xu was not used to int erpret this result as normal/abnormal . [facility]IspkdfdDKMTATTULX3390-33-93 09:41:00 Test Item Value Reference Range Interpretation Comments Segs-Bands # (test code = Segs-Bands #) 1.2 1.5-8.1 [facility]JddzouvDWTVBFUDXP7530-20-27 09:41:00 Test Item Value Reference Range Interpretation Comments Lymphocytes # (test code = Lymphocytes 2.3 1.0-5.5 #) [facility]XtwivueCFFCAF7494-50-91 09:41:00 Test Item Value Reference Range Interpretation Comments CHD Risk (test code = CHD Risk) 3.06 3.90-5.80 [facility]LeuqmxnQURQWN4896-85-19 09:41:00 Test Item Value Reference Range Interpretation Comments LDL (Calculated) (test code = LDL 31 (Calculated)) [facility]viewDjyrhnjSHGZPV6236-60-02 09:41:00 Test Item Value Reference Range Interpretation Comments HDL (test code = HDL) 31 [facility]viewMetiipuXJYGCD0353-54-22 09:41:00 Test Item Value Reference Range Interpretation Comments Chol (test code = Chol) 95 [facility]viewYdpvtkqDVSDGE0536-23-36 09:41:00 Test Item Value Reference Range Interpretation Comments Trig (test code = Trig) 165 [facility]viewReyorhgAPDSZB4614-42-99 09:41:00 Test Item Value Reference Range Interpretation Comments VLDL (test code = VLDL) 33 [facility]2016-03-31 09:41:00 Test Item Value Reference Range Interpretation Comments Magnesium Lvl (test code = Magnesium 2.1 1.8-2.4 Lvl) [facility]2016-03-31 09:41:00 Test Item Value Reference Range Interpretation Comments eGFR (test code = eGFR) 47 [facility]2016-03-31 09:41:00 Test Item Value Reference Range Interpretation Comments Calcium Lvl (test code = Calcium Lvl) 8.3 8.5-10.5 [facility]2016-03-31 09:41:00 Test Item Value Reference Range Interpretation Comments AGAP (test code = AGAP) 13.1 10.0-20.0 [facility]2016-03-31 09:41:00 Test Item Value Reference Range Interpretation Comments Potassium Lvl (test code = Potassium 3.1 3.5-5.1 Lvl) [facility]2016-03-31 09:41:00 Test Item Value Reference Range Interpretation Comments Chloride Lvl (test code = Chloride Lvl) 112 95-109 [facility]2016-03-31 09:41:00 Test Item Value Reference Range Interpretation Comments CO2 (test code = CO2) 26 24-32 [facility]2016-03-31 09:41:00 Test Item Value Reference Range Interpretation Comments Sodium Lvl (test code = Sodium Lvl) 148 135-145 [facility]2016-03-31 09:41:00 Test Item Value Reference Range Interpretation Comments Creatinine Lvl (test code = Creatinine 1.31 0.50-1.40 Lvl) [facility]2016-03-31 09:41:00 Test Item Value Reference Range Interpretation Comments BUN (test code = BUN) 12 7-22 [facility]2016-03-31 09:41:00 Test Item Value Reference Range Interpretation Comments Glucose Lvl (test code = Glucose Lvl) 71 70-99 [facility]WuprpgcRSTDNCLYTT7251-14-30 09:41:00 Test Item Value Reference Range Interpretation Comments MCV (test code = MCV) 86.3 80.0-98.0 [facility]NaqexrpQVDVAXOFZP1936-72-75 09:41:00 Test Item Value Reference Range Interpretation Comments MPV (test code = MPV) 9.0 7.4-10.4 [facility]JoznbcyPYJPATOYKW7790-84-59 09:41:00 Test Item Value Reference Range Interpretation Comments Platelet (test code = Platelet) 114 133-450 [facility]GxzfppzHEYPEADDIQ3180-94-42 09:41:00 Test Item Value Reference Range Interpretation Comments RDW (test code = RDW) 13.9 11.5-14.5 [facility]MkwfhwnGGVRETHKLO2626-20-75 09:41:00 Test Item Value Reference Range Interpretation Comments MCHC (test code = MCHC) 32.1 32.0-36.0 [facility]XykoplrNUQHKIYDMU8159-64-16 09:41:00 Test Item Value Reference Range Interpretation Comments Hct (test code = Hct) 32.0 36.0-48.0 [facility]QilsobvXIHRVYBOQV9088-37-55 09:41:00 Test Item Value Reference Range Interpretation Comments MCH (test code = MCH) 27.7 pg 27.0-31.0 [facility]QqxudurOEQNALYZXV6471-30-32 09:41:00 Test Item Value Reference Range Interpretation Comments WBC (test code = WBC) 3.7 3.7-10.4 [facility]NjosqdsNGSMGPJWBW8936-87-97 09:41:00 Test Item Value Reference Range Interpretation Comments Hgb (test code = Hgb) 10.3 12.0-16.0 [facility]UepgniyZAGSSDHDXL9973-05-34 09:41:00 Test Item Value Reference Range Interpretation Comments RBC (test code = RBC) 3.70 4.20-5.40 [facility]NrxbptcLVFMIHOLBN3028-80-13 09:41:00 Test Item Value Reference Range Interpretation Comments Segs (test code = Segs) 33.0 45.0-75.0 [facility]BkengmwCXPRNZDGGV3317-59-98 09:41:00 Test Item Value Reference Range Interpretation Comments Bands (test code = 0.0 See_Comment [Automat ed message] The Bands) system which ge nerated this result transmit yue reference range : <=11.0. The reference r xu was not used to interpr et this result as sera l/abnormal. [facility]SasaqluUCRYHSYZQE3950-49-49 09:41:00 Test Item Value Reference Range Interpretation Comments Lymphocytes (test code = Lymphocytes) 61.0 20.0-40.0 [facility]QzpsycbZJNOYLOFGM4831-38-46 09:41:00 Test Item Value Reference Range Interpretation Comments Monocytes (test code = Monocytes) 5.0 2.0-12.0 [facility]XwemdcrEWVXLPSVSN9944-89-49 09:41:00 Test Item Value Reference Range Interpretation Comments Plt Morph (test code = Normal (08/08/15 4:41 Plt Morph) AM) [facility]CmwmbunTWGZEUWQQG8476-03-80 09:41:00 Test Item Value Reference Range Interpretation Comments RBC Morph (test code = Normal (08/08/15 4:41 RBC Morph) AM) [facility]YpaxbteLWEMDXRZLH7903-23-35 09:41:00 Test Item Value Reference Range Interpretation Comments Myelocytes (test code = Myelocytes) 1.0 [facility]AdompqaDWEOAOCWKK8630-69-83 09:41:00 Test Item Value Reference Range Interpretation Comments Atypical Lymphs (test code = Atypical 0.0 Lymphs) [facility]CzbyyprGDOIPZHZEW6938-46-98 09:41:00 Test Item Value Reference Range Interpretation Comments Monocytes # (test code 0.2 See_Comment [Aut omated message] The = Monocytes #) system which generated this result tra nsmitted reference range : <=0.8. The reference r xu was not used to int erpret this result as normal/abnormal . [facility]XdrvtegEOVHXUXIYW7653-43-82 09:41:00 Test Item Value Reference Range Interpretation Comments Segs-Bands # (test code = Segs-Bands #) 1.2 1.5-8.1 [facility]VgvjmzoQGHCOZTSQN7519-35-80 09:41:00 Test Item Value Reference Range Interpretation Comments Lymphocytes # (test code = Lymphocytes 2.3 1.0-5.5 #) [facility]AsddiydMBBXND2457-38-47 09:41:00 Test Item Value Reference Range Interpretation Comments CHD Risk (test code = CHD Risk) 3.06 3.90-5.80 [facility]XobuqosLNTDZH7575-98-36 09:41:00 Test Item Value Reference Range Interpretation Comments LDL (Calculated) (test code = LDL 31 (Calculated)) [facility] 09:41:00 Test Item Value Reference Range Interpretation Comments HDL (test code = HDL) 31 [facility]viewTdedxbjYVAYIL7064-69-83 09:41:00 Test Item Value Reference Range Interpretation Comments Chol (test code = Chol) 95 [facility]viewUegwutpUTDXOD2207-08-81 09:41:00 Test Item Value Reference Range Interpretation Comments Trig (test code = Trig) 165 [facility]TdcpgqbFZWEVP5056-10-22 09:41:00 Test Item Value Reference Range Interpretation Comments VLDL (test code = VLDL) 33 [facility]2016-03-31 09:41:00 Test Item Value Reference Range Interpretation Comments Magnesium Lvl (test code = Magnesium 2.1 1.8-2.4 Lvl) [facility]2016-03-31 09:41:00 Test Item Value Reference Range Interpretation Comments eGFR (test code = eGFR) 47 [facility]2016-03-31 09:41:00 Test Item Value Reference Range Interpretation Comments Calcium Lvl (test code = Calcium Lvl) 8.3 8.5-10.5 [facility]2016-03-31 09:41:00 Test Item Value Reference Range Interpretation Comments AGAP (test code = AGAP) 13.1 10.0-20.0 [facility]2016-03-31 09:41:00 Test Item Value Reference Range Interpretation Comments Potassium Lvl (test code = Potassium 3.1 3.5-5.1 Lvl) [facility]2016-03-31 09:41:00 Test Item Value Reference Range Interpretation Comments Chloride Lvl (test code = Chloride Lvl) 112 95-109 [facility]2016-03-31 09:41:00 Test Item Value Reference Range Interpretation Comments CO2 (test code = CO2) 26 24-32 [facility]2016-03-31 09:41:00 Test Item Value Reference Range Interpretation Comments Sodium Lvl (test code = Sodium Lvl) 148 135-145 [facility]2016-03-31 09:41:00 Test Item Value Reference Range Interpretation Comments Creatinine Lvl (test code = Creatinine 1.31 0.50-1.40 Lvl) [facility]2016-03-31 09:41:00 Test Item Value Reference Range Interpretation Comments BUN (test code = BUN) 12 7-22 [facility]2016-03-31 09:41:00 Test Item Value Reference Range Interpretation Comments Glucose Lvl (test code = Glucose Lvl) 71 70-99 [facility]RcnlondQGOVYEUBNG1712-02-20 09:41:00 Test Item Value Reference Range Interpretation Comments MCV (test code = MCV) 86.3 80.0-98.0 [place] 594266-03-31 09:41:00 Test Item Value Reference Range Interpretation Comments MPV (test code = MPV) 9.0 7.4-10.4 [facility]IiokyksVZBPEYPVZG9638-36-31 09:41:00 Test Item Value Reference Range Interpretation Comments Platelet (test code = Platelet) 114 133-450 [facility]GrqoiqnOLAUDBXWGE9463-18-27 09:41:00 Test Item Value Reference Range Interpretation Comments RDW (test code = RDW) 13.9 11.5-14.5 [facility]NvkviukQORRACUWGD5565-53-14 09:41:00 Test Item Value Reference Range Interpretation Comments MCHC (test code = MCHC) 32.1 32.0-36.0 [facility]VksvaryTADMRDCHAZ7161-05-36 09:41:00 Test Item Value Reference Range Interpretation Comments Hct (test code = Hct) 32.0 36.0-48.0 [facility]TdfavfwTOEHPZIQMS6633-74-44 09:41:00 Test Item Value Reference Range Interpretation Comments MCH (test code = MCH) 27.7 pg 27.0-31.0 [facility]NeukblaFCHCDCLIAS9148-70-40 09:41:00 Test Item Value Reference Range Interpretation Comments WBC (test code = WBC) 3.7 3.7-10.4 [facility]QbqcbuqWRWBEJGNLE8373-12-82 09:41:00 Test Item Value Reference Range Interpretation Comments Hgb (test code = Hgb) 10.3 12.0-16.0 [place] [address]-03-31 09:41:00 Test Item Value Reference Range Interpretation Comments RBC (test code = RBC) 3.70 4.20-5.40 [place] 594266-03-31 09:41:00 Test Item Value Reference Range Interpretation Comments Segs (test code = Segs) 33.0 45.0-75.0 [facility]MgsgbphCUEQYICQVU4340-26-95 09:41:00 Test Item Value Reference Range Interpretation Comments Bands (test code = 0.0 See_Comment [Automat ed message] The Bands) system which ge nerated this result transmit yue reference range : <=11.0. The reference r xu was not used to interpr et this result as sera l/abnormal. [facility]WrubbqgSBKDCNCBLA1611-68-49 09:41:00 Test Item Value Reference Range Interpretation Comments Lymphocytes (test code = Lymphocytes) 61.0 20.0-40.0 [facility]BopjcdjCBERZRZDLE7140-51-11 09:41:00 Test Item Value Reference Range Interpretation Comments Monocytes (test code = Monocytes) 5.0 2.0-12.0 [place] 594266-03-31 09:41:00 Test Item Value Reference Range Interpretation Comments Plt Morph (test code = Normal (08/08/15 4:41 Plt Morph) AM) [facility]OvhntukHAQMPZUVJL7801-84-18 09:41:00 Test Item Value Reference Range Interpretation Comments RBC Morph (test code = Normal (08/08/15 4:41 RBC Morph) AM) [facility]UeiorabJEEFVMLNFW5815-60-26 09:41:00 Test Item Value Reference Range Interpretation Comments Myelocytes (test code = Myelocytes) 1.0 [facility]UzfvqviERVDCRVPME9037-19-10 09:41:00 Test Item Value Reference Range Interpretation Comments Atypical Lymphs (test code = Atypical 0.0 Lymphs) [facility]RokavgcMMBOGKHCYE3076-00-20 09:41:00 Test Item Value Reference Range Interpretation Comments Monocytes # (test code 0.2 See_Comment [Aut omated message] The = Monocytes #) system which generated this result tra nsmitted reference range : <=0.8. The reference r xu was not used to int erpret this result as normal/abnormal . [facility]RouffioONAESMWVTB6196-32-04 09:41:00 Test Item Value Reference Range Interpretation Comments Segs-Bands # (test code = Segs-Bands #) 1.2 1.5-8.1 [facility]KfjcheuZVUFRKKHOD5739-18-13 09:41:00 Test Item Value Reference Range Interpretation Comments Lymphocytes # (test code = Lymphocytes 2.3 1.0-5.5 #) [facility]HfeoqxdBDDTOI4089-79-79 09:41:00 Test Item Value Reference Range Interpretation Comments CHD Risk (test code = CHD Risk) 3.06 3.90-5.80 [facility]MzddtyuPBTNUD5377-27-01 09:41:00 Test Item Value Reference Range Interpretation Comments LDL (Calculated) (test code = LDL 31 (Calculated)) [facility]viewDmkklkbYGKMSN8286-04-98 09:41:00 Test Item Value Reference Range Interpretation Comments HDL (test code = HDL) 31 [facility]viewTakxhoyVEZOCA0870-85-71 09:41:00 Test Item Value Reference Range Interpretation Comments Chol (test code = Chol) 95 [facility]viewTunionmODSFRR7105-25-40 09:41:00 Test Item Value Reference Range Interpretation Comments Trig (test code = Trig) 165 [place] 802996-03-31 09:41:00 Test Item Value Reference Range Interpretation Comments VLDL (test code = VLDL) 33 [facility]2016-03-31 09:41:00 Test Item Value Reference Range Interpretation Comments Magnesium Lvl (test code = Magnesium 2.1 1.8-2.4 Lvl) [facility]2016-03-31 09:41:00 Test Item Value Reference Range Interpretation Comments eGFR (test code = eGFR) 47 [facility]2016-03-31 09:41:00 Test Item Value Reference Range Interpretation Comments Calcium Lvl (test code = Calcium Lvl) 8.3 8.5-10.5 [facility]2016-03-31 09:41:00 Test Item Value Reference Range Interpretation Comments AGAP (test code = AGAP) 13.1 10.0-20.0 [facility]2016-03-31 09:41:00 Test Item Value Reference Range Interpretation Comments Potassium Lvl (test code = Potassium 3.1 3.5-5.1 Lvl) [facility]2016-03-31 09:41:00 Test Item Value Reference Range Interpretation Comments Chloride Lvl (test code = Chloride Lvl) 112 95-109 [facility]2016-03-31 09:41:00 Test Item Value Reference Range Interpretation Comments CO2 (test code = CO2) 24-32 [place] 702886-03-31 09:41:00 Test Item Value Reference Range Interpretation Comments Sodium Lvl (test code = Sodium Lvl) 148 135-145 [facility]2016-03-31 09:41:00 Test Item Value Reference Range Interpretation Comments Creatinine Lvl (test code = Creatinine 1.31 0.50-1.40 Lvl) [facility]2016-03-31 09:41:00 Test Item Value Reference Range Interpretation Comments BUN (test code = BUN) 12 7-22 [facility]2016-03-31 09:41:00 Test Item Value Reference Range Interpretation Comments Glucose Lvl (test code = Glucose Lvl) 71 70-99 [facility]XjlkhltMAMUWZKJLL4931-71-51 09:41:00 Test Item Value Reference Range Interpretation Comments MCV (test code = MCV) 86.3 80.0-98.0 [place] 594266-03-31 09:41:00 Test Item Value Reference Range Interpretation Comments MPV (test code = MPV) 9.0 7.4-10.4 [place] 594266-03-31 09:41:00 Test Item Value Reference Range Interpretation Comments Platelet (test code = Platelet) 114 133-450 [facility]GazfkhmPNJFWAIWCA1573-41-27 09:41:00 Test Item Value Reference Range Interpretation Comments RDW (test code = RDW) 13.9 11.5-14.5 [place] 594266-03-31 09:41:00 Test Item Value Reference Range Interpretation Comments MCHC (test code = MCHC) 32.1 32.0-36.0 [facility]LtkcsolFFGCUTGHTY3863-69-15 09:41:00 Test Item Value Reference Range Interpretation Comments Hct (test code = Hct) 32.0 36.0-48.0 [facility]DzvyfydOFVRDKRQXZ4133-17-56 09:41:00 Test Item Value Reference Range Interpretation Comments MCH (test code = MCH) 27.7 pg 27.0-31.0 [facility]VlngaraFBDTSRGTMA9780-34-82 09:41:00 Test Item Value Reference Range Interpretation Comments WBC (test code = WBC) 3.7 3.7-10.4 [place] 594266-03-31 09:41:00 Test Item Value Reference Range Interpretation Comments Hgb (test code = Hgb) 10.3 12.0-16.0 [facility]NjlkiirEJNGTKUYIX3731-27-29 09:41:00 Test Item Value Reference Range Interpretation Comments RBC (test code = RBC) 3.70 4.20-5.40 [facility]BaebbafSAHDAPIVPO6043-21-94 09:41:00 Test Item Value Reference Range Interpretation Comments Segs (test code = Segs) 33.0 45.0-75.0 [facility]RuplrozNEZMIHNCNY3429-10-57 09:41:00 Test Item Value Reference Range Interpretation Comments Bands (test code = 0.0 See_Comment [Automat ed message] The Bands) system which ge nerated this result transmit yue reference range : <=11.0. The reference r xu was not used to interpr et this result as sera l/abnormal. [facility]DrbkqbqQMBBPWYGAM7698-83-59 09:41:00 Test Item Value Reference Range Interpretation Comments Lymphocytes (test code = Lymphocytes) 61.0 20.0-40.0 [facility]AivtpwuYXARNIADWQ7872-90-02 09:41:00 Test Item Value Reference Range Interpretation Comments Monocytes (test code = Monocytes) 5.0 2.0-12.0 [facility]NbbusrpBKIBUSPWCK5520-02-27 09:41:00 Test Item Value Reference Range Interpretation Comments Plt Morph (test code = Normal (08/08/15 4:41 Plt Morph) AM) [facility]EoapibyYDDYSMODJY7507-72-05 09:41:00 Test Item Value Reference Range Interpretation Comments RBC Morph (test code = Normal (08/08/15 4:41 RBC Morph) AM) [facility]IodxkugBFNOZARAQQ9697-25-80 09:41:00 Test Item Value Reference Range Interpretation Comments Myelocytes (test code = Myelocytes) 1.0 [facility]WnpwuxcYJBDFPAUUJ2962-11-66 09:41:00 Test Item Value Reference Range Interpretation Comments Atypical Lymphs (test code = Atypical 0.0 Lymphs) [facility]EvqmtdwBRAPFCAQVS1468-50-65 09:41:00 Test Item Value Reference Range Interpretation Comments Monocytes # (test code 0.2 See_Comment [Aut omated message] The = Monocytes #) system which generated this result tra nsmitted reference range : <=0.8. The reference r ux was not used to int erpret this result as normal/abnormal . [place] 594266-03-31 09:41:00 Test Item Value Reference Range Interpretation Comments Segs-Bands # (test code = Segs-Bands #) 1.2 1.5-8.1 [facility]LtayrdvCINRNRRKDV6493-86-02 09:41:00 Test Item Value Reference Range Interpretation Comments Lymphocytes # (test code = Lymphocytes 2.3 1.0-5.5 #) [facility]IthjjsaDHWGOV6134-17-60 09:41:00 Test Item Value Reference Range Interpretation Comments CHD Risk (test code = CHD Risk) 3.06 3.90-5.80 [place] [address]-03-31 09:41:00 Test Item Value Reference Range Interpretation Comments LDL (Calculated) (test code = LDL 31 (Calculated)) [facility]viewGpcrepcFDOJQR1520-96-65 09:41:00 Test Item Value Reference Range Interpretation Comments HDL (test code = HDL) 31 [facility]viewXalzqryYUSZAX6135-48-62 09:41:00 Test Item Value Reference Range Interpretation Comments Chol (test code = Chol) 95 [facility]viewDeyogqqPQZRUX7637-14-81 09:41:00 Test Item Value Reference Range Interpretation Comments Trig (test code = Trig) 165 [facility]viewJohxkntIMEYFA9400-70-74 09:41:00 Test Item Value Reference Range Interpretation Comments VLDL (test code = VLDL) 33 [facility]2016-03-31 09:41:00 Test Item Value Reference Range Interpretation Comments Magnesium Lvl (test code = Magnesium 2.1 1.8-2.4 Lvl) [facility]2016-03-31 09:41:00 Test Item Value Reference Range Interpretation Comments eGFR (test code = eGFR) 47 [facility]2016-03-31 09:41:00 Test Item Value Reference Range Interpretation Comments Calcium Lvl (test code = Calcium Lvl) 8.3 8.5-10.5 [facility]2016-03-31 09:41:00 Test Item Value Reference Range Interpretation Comments AGAP (test code = AGAP) 13.1 10.0-20.0 [facility]2016-03-31 09:41:00 Test Item Value Reference Range Interpretation Comments Potassium Lvl (test code = Potassium 3.1 3.5-5.1 Lvl) [place] 702886-03-31 09:41:00 Test Item Value Reference Range Interpretation Comments Chloride Lvl (test code = Chloride Lvl) 112 95-109 [facility]2016-03-31 09:41:00 Test Item Value Reference Range Interpretation Comments CO2 (test code = CO2) 26 24-32 [place] 702886-03-31 09:41:00 Test Item Value Reference Range Interpretation Comments Sodium Lvl (test code = Sodium Lvl) 148 135-145 [place] 702886-03-31 09:41:00 Test Item Value Reference Range Interpretation Comments Creatinine Lvl (test code = Creatinine 1.31 0.50-1.40 Lvl) [place] 702886-03-31 09:41:00 Test Item Value Reference Range Interpretation Comments BUN (test code = BUN) 12 7-22 [facility]2016-03-31 09:41:00 Test Item Value Reference Range Interpretation Comments Glucose Lvl (test code = Glucose Lvl) 71 70-99 [facility]DibnvamUZYEQFZMMV0905-45-66 09:41:00 Test Item Value Reference Range Interpretation Comments MCV (test code = MCV) 86.3 80.0-98.0 [place] 594266-03-31 09:41:00 Test Item Value Reference Range Interpretation Comments MPV (test code = MPV) 9.0 7.4-10.4 [facility]TuvblyeOBTQELMZXR9259-13-32 09:41:00 Test Item Value Reference Range Interpretation Comments Platelet (test code = Platelet) 114 133-450 [facility]RfsnzzhAAAEYFPJEP7600-21-73 09:41:00 Test Item Value Reference Range Interpretation Comments RDW (test code = RDW) 13.9 11.5-14.5 [place] 594266-03-31 09:41:00 Test Item Value Reference Range Interpretation Comments MCHC (test code = MCHC) 32.1 32.0-36.0 [place] 594266-03-31 09:41:00 Test Item Value Reference Range Interpretation Comments Hct (test code = Hct) 32.0 36.0-48.0 [place] 594266-03-31 09:41:00 Test Item Value Reference Range Interpretation Comments MCH (test code = MCH) 27.7 pg 27.0-31.0 [facility]WdfdanrJQXHXMFSUG8954-05-81 09:41:00 Test Item Value Reference Range Interpretation Comments WBC (test code = WBC) 3.7 3.7-10.4 [facility]GhfypwfDOHPNVZJZQ4247-65-72 09:41:00 Test Item Value Reference Range Interpretation Comments Hgb (test code = Hgb) 10.3 12.0-16.0 [facility]FskrohkZDWLJSBAQQ5824-45-78 09:41:00 Test Item Value Reference Range Interpretation Comments RBC (test code = RBC) 3.70 4.20-5.40 [facility]HktblupJWTPTLBRAZ2747-33-39 09:41:00 Test Item Value Reference Range Interpretation Comments Segs (test code = Segs) 33.0 45.0-75.0 [facility]UtthtdrWKBLVRNOZJ5159-62-38 09:41:00 Test Item Value Reference Range Interpretation Comments Bands (test code = 0.0 See_Comment [Automat ed message] The Bands) system which ge nerated this result transmit yue reference range : <=11.0. The reference r xu was not used to interpr et this result as sera l/abnormal. [facility]LlsvkhaIHBWHRXVVG6563-48-14 09:41:00 Test Item Value Reference Range Interpretation Comments Lymphocytes (test code = Lymphocytes) 61.0 20.0-40.0 [facility]EdemhlfIUCRHCGFCA7350-06-35 09:41:00 Test Item Value Reference Range Interpretation Comments Monocytes (test code = Monocytes) 5.0 2.0-12.0 [facility]JxwhmwkFXVJLWCUEY9389-00-21 09:41:00 Test Item Value Reference Range Interpretation Comments Plt Morph (test code = Normal (08/08/15 4:41 Plt Morph) AM) [facility]BfdkdjiUGSBQELHEO4755-19-17 09:41:00 Test Item Value Reference Range Interpretation Comments RBC Morph (test code = Normal (08/08/15 4:41 RBC Morph) AM) [facility]JgkisxhVFZSADPQQB7419-21-38 09:41:00 Test Item Value Reference Range Interpretation Comments Myelocytes (test code = Myelocytes) 1.0 [facility]OscssfhKZCSYSQSXC3737-20-52 09:41:00 Test Item Value Reference Range Interpretation Comments Atypical Lymphs (test code = Atypical 0.0 Lymphs) [facility]NyusvweSSBSUZVHFI4452-47-54 09:41:00 Test Item Value Reference Range Interpretation Comments Monocytes # (test code 0.2 See_Comment [Aut omated message] The = Monocytes #) system which generated this result tra nsmitted reference range : <=0.8. The reference r xu was not used to int erpret this result as normal/abnormal . [facility]DrfkhaaPQFJWPWSDN5464-06-17 09:41:00 Test Item Value Reference Range Interpretation Comments Segs-Bands # (test code = Segs-Bands #) 1.2 1.5-8.1 [facility]BeyrstyWREXPCWPOK6786-94-19 09:41:00 Test Item Value Reference Range Interpretation Comments Lymphocytes # (test code = Lymphocytes 2.3 1.0-5.5 #) [facility]YqdkghkHAVLMI8067-71-55 09:41:00 Test Item Value Reference Range Interpretation Comments CHD Risk (test code = CHD Risk) 3.06 3.90-5.80 [facility]JgmxycvBVLWIA6335-27-00 09:41:00 Test Item Value Reference Range Interpretation Comments LDL (Calculated) (test code = LDL 31 (Calculated)) [id number] 09:41:00 Test Item Value Reference Range Interpretation Comments HDL (test code = HDL) 31 [id number] 09:41:00 Test Item Value Reference Range Interpretation Comments Chol (test code = Chol) 95 [id number] 09:41:00 Test Item Value Reference Range Interpretation Comments Trig (test code = Trig) 165 [id number] 09:41:00 Test Item Value Reference Range Interpretation Comments VLDL (test code = VLDL) 33 [facility] [id number] 03:22:00 Test Item Value Reference Range Interpretation Comments Creatinine Lvl (test code = Creatinine 1.42 0.50-1.40 Lvl) [facility] [id number] 03:22:00 Test Item Value Reference Range Interpretation Comments eGFR (test code = eGFR) 42 [facility]9406[facility]-64 03:22:00 Test Item Value Reference Range Interpretation Comments PTT (test code = PTT) 30.8 s 22.9-35.8 [facility]powxhbUJQOWHXPBS7812-56-89 03:22:00 Test Item Value Reference Range Interpretation Comments Platelet (test code = Platelet) 156 133-450 [facility]2016-03-31 03:22:00 Test Item Value Reference Range Interpretation Comments Hgb A1C (test code = Hgb A1C) 5.7 [facility]2016-03-31 03:22:00 Test Item Value Reference Range Interpretation Comments Creatinine Lvl (test code = Creatinine 1.42 0.50-1.40 Lvl) [facility]2016-03-31 03:22:00 Test Item Value Reference Range Interpretation Comments eGFR (test code = eGFR) 42 [facility]LoplbnaTJZXBZUPVK9741-41-98 03:22:00 Test Item Value Reference Range Interpretation Comments PTT (test code = PTT) 30.8 s 22.9-35.8 [facility]YlbxbguNRPNJSCVAK6896-06-36 03:22:00 Test Item Value Reference Range Interpretation Comments Platelet (test code = Platelet) 156 133-450 [facility]2016-03-31 03:22:00 Test Item Value Reference Range Interpretation Comments Hgb A1C (test code = Hgb A1C) 5.7 [facility]2016-03-31 03:22:00 Test Item Value Reference Range Interpretation Comments Creatinine Lvl (test code = Creatinine 1.42 0.50-1.40 Lvl) [facility]2016-03-31 03:22:00 Test Item Value Reference Range Interpretation Comments eGFR (test code = eGFR) 42 [id number] 03:22:00 Test Item Value Reference Range Interpretation Comments PTT (test code = PTT) 30.8 s 22.9-35.8 [facility]GhsbmheVOWHESYULQ8128-96-84 03:22:00 Test Item Value Reference Range Interpretation Comments Platelet (test code = Platelet) 156 133-450 [facility]2016-03-31 03:22:00 Test Item Value Reference Range Interpretation Comments Hgb A1C (test code = Hgb A1C) 5.7 [facility]2016-03-31 03:22:00 Test Item Value Reference Range Interpretation Comments Creatinine Lvl (test code = Creatinine 1.42 0.50-1.40 Lvl) [facility]2016-03-31 03:22:00 Test Item Value Reference Range Interpretation Comments eGFR (test code = eGFR) 42 [facility]C[id number] 03:22:00 Test Item Value Reference Range Interpretation Comments PTT (test code = PTT) 30.8 s 22.9-35.8 [facility]CenirgyZVZTRNOFKU3301-24-14 03:22:00 Test Item Value Reference Range Interpretation Comments Platelet (test code = Platelet) 156 133-450 [facility]2016-03-31 03:22:00 Test Item Value Reference Range Interpretation Comments Hgb A1C (test code = Hgb A1C) 5.7 [facility]2016-03-31 03:22:00 Test Item Value Reference Range Interpretation Comments Creatinine Lvl (test code = Creatinine 1.42 0.50-1.40 Lvl) [facility]2016-03-31 03:22:00 Test Item Value Reference Range Interpretation Comments eGFR (test code = eGFR) 42 [facility]IcmhxrdNRLSEKKRBK1789-47-60 03:22:00 Test Item Value Reference Range Interpretation Comments PTT (test code = PTT) 30.8 s 22.9-35.8 [facility]EtywzfmSVCHSXBIZO3613-87-48 03:22:00 Test Item Value Reference Range Interpretation Comments Platelet (test code = Platelet) 156 133-450 [facility]2016-03-31 03:22:00 Test Item Value Reference Range Interpretation Comments Hgb A1C (test code = Hgb A1C) 5.7 [facility]2016-03-31 03:22:00 Test Item Value Reference Range Interpretation Comments Creatinine Lvl (test code = Creatinine 1.42 0.50-1.40 Lvl) [facility]2016-03-31 03:22:00 Test Item Value Reference Range Interpretation Comments eGFR (test code = eGFR) 42 [id number] 03:22:00 Test Item Value Reference Range Interpretation Comments PTT (test code = PTT) 30.8 s 22.9-35.8 [facility]JoiazyaILUNBKVLLB3717-57-53 03:22:00 Test Item Value Reference Range Interpretation Comments Platelet (test code = Platelet) 156 133-450 [facility]2016-03-31 03:22:00 Test Item Value Reference Range Interpretation Comments Hgb A1C (test code = Hgb A1C) 5.7 [facility]2016-03-31 03:22:00 Test Item Value Reference Range Interpretation Comments Creatinine Lvl (test code = Creatinine 1.42 0.50-1.40 Lvl) [facility]2016-03-31 03:22:00 Test Item Value Reference Range Interpretation Comments eGFR (test code = eGFR) 42 [facility]WyjcasdEJRMHVCJUP6515-22-53 03:22:00 Test Item Value Reference Range Interpretation Comments PTT (test code = PTT) 30.8 s 22.9-35.8 [facility]LjymsxvDYWJSXNGTY5564-31-67 03:22:00 Test Item Value Reference Range Interpretation Comments Platelet (test code = Platelet) 156 133-450 [facility]2016-03-31 03:22:00 Test Item Value Reference Range Interpretation Comments Hgb A1C (test code = Hgb A1C) 5.7 [facility]2016-03-31 03:22:00 Test Item Value Reference Range Interpretation Comments Creatinine Lvl (test code = Creatinine 1.42 0.50-1.40 Lvl) [facility]2016-03-31 03:22:00 Test Item Value Reference Range Interpretation Comments eGFR (test code = eGFR) 42 [facility]CtlzhevMVJKZBHPDU7821-08-19 03:22:00 Test Item Value Reference Range Interpretation Comments PTT (test code = PTT) 30.8 s 22.9-35.8 [facility]ChuthkfNXWBTYTWKE8110-13-23 03:22:00 Test Item Value Reference Range Interpretation Comments Platelet (test code = Platelet) 156 133-450 [facility]2016-03-31 03:22:00 Test Item Value Reference Range Interpretation Comments Hgb A1C (test code = Hgb A1C) 5.7 [facility]2016-03-31 03:22:00 Test Item Value Reference Range Interpretation Comments Creatinine Lvl (test code = Creatinine 1.42 0.50-1.40 Lvl) [facility]2016-03-31 03:22:00 Test Item Value Reference Range Interpretation Comments eGFR (test code = eGFR) 42 [id number] 03:22:00 Test Item Value Reference Range Interpretation Comments PTT (test code = PTT) 30.8 s 22.9-35.8 [facility]QetmlcsSIBKNPSYRT4720-24-43 03:22:00 Test Item Value Reference Range Interpretation Comments Platelet (test code = Platelet) 156 133-450 [facility] [id number] 03:22:00 Test Item Value Reference Range Interpretation Comments Hgb A1C (test code = Hgb A1C) 5.7 [facility] [id number] 22:01:00 Test Item Value Reference Range Interpretation Comments UA RBC (test code = 1 See_Comment [Automa yue message] The UA RBC) system which ge nerated this result transmit yue reference range : <=2. The reference range was not used to interpr et this result as sera l/abnormal. [facility] [id number] 22:01:00 Test Item Value Reference Range Interpretation Comments UA Sq Epi (test code = UA Sq Moderate /LPF Epi) [facility] AND [id number] 22:01:00 Test Item Value Reference Range Interpretation Comments UA WBC (test code = 5 See_Comment [Automa yue message] The UA WBC) system which ge nerated this result transmit yue reference range : <=5. The reference range was not used to interpr et this result as sera l/abnormal. [facility] [id number] 22:01:00 Test Item Value Reference Range Interpretation Comments UA Hyal Cast (test 5 See_Comment [Automat ed message] The code = UA Hyal Cast) system which generated this result transmit yue reference range : <=2. The reference range was not used to interpr et this result as sera l/abnormal. [facility] [id number] 22:01:00 Test Item Value Reference Range Interpretation Comments UA Mucus (test code = UA Mucus) Many /LPF [facility] [id number] 22:01:00 Test Item Value Reference Range Interpretation Comments UA Bacteria (test code = UA Occasional /HPF Bacteria) [facility] [id number] 22:01:00 Test Item Value Reference Range Interpretation Comments UA Ketones (test code = UA Ketones) Negative [facility] AND [id number] 22:01:00 Test Item Value Reference Range Interpretation Comments UA Urobilinogen (test code = UA <=1.0 mg/dL 0.1-1.0 Urobilinogen) [facility] AND [id number] 22:01:00 Test Item Value Reference Range Interpretation Comments UA pH (test code = UA pH) 5.0 5.0-8.0 [facility] AND [id number] 22:01:00 Test Item Value Reference Range Interpretation Comments UA Protein (test code = UA Protein) 30 mg/dL [facility] AND [id number] 22:01:00 Test Item Value Reference Range Interpretation Comments UA Turbidity (test code Slight *ABN*(08/07/15 = UA Turbidity) 5:01 PM) [facility] AND [id number] 22:01:00 Test Item Value Reference Range Interpretation Comments UA Spec Grav (test code = UA Spec Grav) 1.019 [facility] AND [id number] 22:01:00 Test Item Value Reference Range Interpretation Comments UA Color (test code = Dark Yellow UA Color) *NA*(08/07/15 5:01 PM) [facility] AND [id number] 22:01:00 Test Item Value Reference Range Interpretation Comments UA Glucose (test code = UA Negative mg/dL Glucose) [facility] AND [id number] 22:01:00 Test Item Value Reference Range Interpretation Comments UA Blood (test code = Negative (08/07/15 5:01 UA Blood) PM) [facility] AND [id number] 22:01:00 Test Item Value Reference Range Interpretation Comments UA Bili (test code = Negative *NA*(08/07/15 UA Bili) 5:01 PM) [facility] AND [id number] 22:01:00 Test Item Value Reference Range Interpretation Comments UA Nitrite (test code Negative (08/07/15 5:01 = UA Nitrite) PM) [facility] AND [id number] 22:01:00 Test Item Value Reference Range Interpretation Comments UA Leuk Est (test Negative (08/07/15 5:01 code = UA Leuk Est) PM) [facility] AND [id number] 22:01:00 Test Item Value Reference Range Interpretation Comments UA RBC (test code = 1 See_Comment [Automa yue message] The UA RBC) system which ge nerated this result transmit yue reference range : <=2. The reference range was not used to interpr et this result as sera l/abnormal. [facility] AND [id number] 22:01:00 Test Item Value Reference Range Interpretation Comments UA Sq Epi (test code = UA Sq Moderate /LPF Epi) [facility] [id number] 22:01:00 Test Item Value Reference Range Interpretation Comments UA WBC (test code = 5 See_Comment [Automa yue message] The UA WBC) system which ge nerated this result transmit yue reference range : <=5. The reference range was not used to interpr et this result as sera l/abnormal. [facility] [id number] 22:01:00 Test Item Value Reference Range Interpretation Comments UA Hyal Cast (test 5 See_Comment [Automat ed message] The code = UA Hyal Cast) system which generated this result transmit yue reference range : <=2. The reference range was not used to interpr et this result as sera l/abnormal. [facility] AND [id number] 22:01:00 Test Item Value Reference Range Interpretation Comments UA Mucus (test code = UA Mucus) Many /LPF [facility] AND [id number] 22:01:00 Test Item Value Reference Range Interpretation Comments UA Bacteria (test code = UA Occasional /HPF Bacteria) [facility] AND [id number] 22:01:00 Test Item Value Reference Range Interpretation Comments UA Ketones (test code = UA Ketones) Negative [facility] AND [id number] 22:01:00 Test Item Value Reference Range Interpretation Comments UA Urobilinogen (test code = UA <=1.0 mg/dL 0.1-1.0 Urobilinogen) [facility] AND [id number] 22:01:00 Test Item Value Reference Range Interpretation Comments UA pH (test code = UA pH) 5.0 5.0-8.0 [facility] AND [id number] 22:01:00 Test Item Value Reference Range Interpretation Comments UA Protein (test code = UA Protein) 30 mg/dL [facility] AND [id number] 22:01:00 Test Item Value Reference Range Interpretation Comments UA Turbidity (test code Slight *ABN*(08/07/15 = UA Turbidity) 5:01 PM) [facility] AND [id number] 22:01:00 Test Item Value Reference Range Interpretation Comments UA Spec Grav (test code = UA Spec Grav) 1.019 [facility] AND [id number] 22:01:00 Test Item Value Reference Range Interpretation Comments UA Color (test code = Dark Yellow UA Color) *NA*(08/07/15 5:01 PM) [facility] AND [id number] 22:01:00 Test Item Value Reference Range Interpretation Comments UA Glucose (test code = UA Negative mg/dL Glucose) [facility] AND [id number] 22:01:00 Test Item Value Reference Range Interpretation Comments UA Blood (test code = Negative (08/07/15 5:01 UA Blood) PM) [facility] AND [id number] 22:01:00 Test Item Value Reference Range Interpretation Comments UA Bili (test code = Negative *NA*(08/07/15 UA Bili) 5:01 PM) [facility] AND [id number] 22:01:00 Test Item Value Reference Range Interpretation Comments UA Nitrite (test code Negative (08/07/15 5:01 = UA Nitrite) PM) [facility] AND [id number] 22:01:00 Test Item Value Reference Range Interpretation Comments UA Leuk Est (test Negative (08/07/15 5:01 code = UA Leuk Est) PM) [facility] AND [id number] 22:01:00 Test Item Value Reference Range Interpretation Comments UA RBC (test code = 1 See_Comment [Automa yue message] The UA RBC) system which ge nerated this result transmit yue reference range : <=2. The reference range was not used to interpr et this result as sera l/abnormal. [facility] AND [id number] 22:01:00 Test Item Value Reference Range Interpretation Comments UA Sq Epi (test code = UA Sq Moderate /LPF Epi) [facility] AND [id number] 22:01:00 Test Item Value Reference Range Interpretation Comments UA WBC (test code = 5 See_Comment [Automa yue message] The UA WBC) system which ge nerated this result transmit yue reference range : <=5. The reference range was not used to interpr et this result as sera l/abnormal. [facility] AND [id number] 22:01:00 Test Item Value Reference Range Interpretation Comments UA Hyal Cast (test 5 See_Comment [Automat ed message] The code = UA Hyal Cast) system which generated this result transmit yue reference range : <=2. The reference range was not used to interpr et this result as sera l/abnormal. [facility] AND [id number] 22:01:00 Test Item Value Reference Range Interpretation Comments UA Mucus (test code = UA Mucus) Many /LPF [facility] AND [id number] 22:01:00 Test Item Value Reference Range Interpretation Comments UA Bacteria (test code = UA Occasional /HPF Bacteria) [facility] AND [id number] 22:01:00 Test Item Value Reference Range Interpretation Comments UA Ketones (test code = UA Ketones) Negative [facility] AND [id number] 22:01:00 Test Item Value Reference Range Interpretation Comments UA Urobilinogen (test code = UA <=1.0 mg/dL 0.1-1.0 Urobilinogen) [facility] AND [id number] 22:01:00 Test Item Value Reference Range Interpretation Comments UA pH (test code = UA pH) 5.0 5.0-8.0 [facility] AND [id number] 22:01:00 Test Item Value Reference Range Interpretation Comments UA Protein (test code = UA Protein) 30 mg/dL [facility] AND [id number] 22:01:00 Test Item Value Reference Range Interpretation Comments UA Turbidity (test code Slight *ABN*(08/07/15 = UA Turbidity) 5:01 PM) [facility] AND [id number] 22:01:00 Test Item Value Reference Range Interpretation Comments UA Spec Grav (test code = UA Spec Grav) 1.019 [facility] AND [id number] 22:01:00 Test Item Value Reference Range Interpretation Comments UA Color (test code = Dark Yellow UA Color) *NA*(08/07/15 5:01 PM) [facility] AND [id number] 22:01:00 Test Item Value Reference Range Interpretation Comments UA Glucose (test code = UA Negative mg/dL Glucose) [facility] AND [id number] 22:01:00 Test Item Value Reference Range Interpretation Comments UA Blood (test code = Negative (08/07/15 5:01 UA Blood) PM) [facility] AND [id number] 22:01:00 Test Item Value Reference Range Interpretation Comments UA Bili (test code = Negative *NA*(08/07/15 UA Bili) 5:01 PM) [facility] AND [id number] 22:01:00 Test Item Value Reference Range Interpretation Comments UA Nitrite (test code Negative (08/07/15 5:01 = UA Nitrite) PM) [facility] AND [id number] 22:01:00 Test Item Value Reference Range Interpretation Comments UA Leuk Est (test Negative (08/07/15 5:01 code = UA Leuk Est) PM) [facility] AND [id number] 22:01:00 Test Item Value Reference Range Interpretation Comments UA RBC (test code = 1 See_Comment [Automa yue message] The UA RBC) system which ge nerated this result transmit yue reference range : <=2. The reference range was not used to interpr et this result as sera l/abnormal. [facility] AND [id number] 22:01:00 Test Item Value Reference Range Interpretation Comments UA Sq Epi (test code = UA Sq Moderate /LPF Epi) [facility] AND [id number] 22:01:00 Test Item Value Reference Range Interpretation Comments UA WBC (test code = 5 See_Comment [Automa yue message] The UA WBC) system which ge nerated this result transmit yue reference range : <=5. The reference range was not used to interpr et this result as sera l/abnormal. [facility] AND [id number] 22:01:00 Test Item Value Reference Range Interpretation Comments UA Hyal Cast (test 5 See_Comment [Automat ed message] The code = UA Hyal Cast) system which generated this result transmit yue reference range : <=2. The reference range was not used to interpr et this result as sera l/abnormal. [facility] AND [id number] 22:01:00 Test Item Value Reference Range Interpretation Comments UA Mucus (test code = UA Mucus) Many /LPF [facility] AND [id number] 22:01:00 Test Item Value Reference Range Interpretation Comments UA Bacteria (test code = UA Occasional /HPF Bacteria) [facility] AND [id number] 22:01:00 Test Item Value Reference Range Interpretation Comments UA Ketones (test code = UA Ketones) Negative [facility] AND [id number] 22:01:00 Test Item Value Reference Range Interpretation Comments UA Urobilinogen (test code = UA <=1.0 mg/dL 0.1-1.0 Urobilinogen) [facility] AND [id number] 22:01:00 Test Item Value Reference Range Interpretation Comments UA pH (test code = UA pH) 5.0 5.0-8.0 [facility] AND [id number] 22:01:00 Test Item Value Reference Range Interpretation Comments UA Protein (test code = UA Protein) 30 mg/dL [facility] AND [id number] 22:01:00 Test Item Value Reference Range Interpretation Comments UA Turbidity (test code Slight *ABN*(08/07/15 = UA Turbidity) 5:01 PM) [facility] AND [id number] 22:01:00 Test Item Value Reference Range Interpretation Comments UA Spec Grav (test code = UA Spec Grav) 1.019 [facility] AND [id number] 22:01:00 Test Item Value Reference Range Interpretation Comments UA Color (test code = Dark Yellow UA Color) *NA*(08/07/15 5:01 PM) [facility] AND [id number] 22:01:00 Test Item Value Reference Range Interpretation Comments UA Glucose (test code = UA Negative mg/dL Glucose) [facility] AND [id number] 22:01:00 Test Item Value Reference Range Interpretation Comments UA Blood (test code = Negative (08/07/15 5:01 UA Blood) PM) [facility] AND [id number] 22:01:00 Test Item Value Reference Range Interpretation Comments UA Bili (test code = Negative *NA*(08/07/15 UA Bili) 5:01 PM) [facility] AND [id number] 22:01:00 Test Item Value Reference Range Interpretation Comments UA Nitrite (test code Negative (08/07/15 5:01 = UA Nitrite) PM) [facility] AND [id number] 22:01:00 Test Item Value Reference Range Interpretation Comments UA Leuk Est (test Negative (08/07/15 5:01 code = UA Leuk Est) PM) [facility] AND [id number] 22:01:00 Test Item Value Reference Range Interpretation Comments UA RBC (test code = 1 See_Comment [Automa yue message] The UA RBC) system which ge nerated this result transmit yue reference range : <=2. The reference range was not used to interpr et this result as sera l/abnormal. [facility] AND [id number] 22:01:00 Test Item Value Reference Range Interpretation Comments UA Sq Epi (test code = UA Sq Moderate /LPF Epi) [facility] AND [id number] 22:01:00 Test Item Value Reference Range Interpretation Comments UA WBC (test code = 5 See_Comment [Automa yue message] The UA WBC) system which ge nerated this result transmit yue reference range : <=5. The reference range was not used to interpr et this result as sera l/abnormal. [facility] AND [id number] 22:01:00 Test Item Value Reference Range Interpretation Comments UA Hyal Cast (test 5 See_Comment [Automat ed message] The code = UA Hyal Cast) system which generated this result transmit yue reference range : <=2. The reference range was not used to interpr et this result as sera l/abnormal. [facility] AND [id number] 22:01:00 Test Item Value Reference Range Interpretation Comments UA RBC (test code = 1 See_Comment [Automa yue message] The UA RBC) system which ge nerated this result transmit yue reference range : <=2. The reference range was not used to interpr et this result as sera l/abnormal. [facility] AND [id number] 22:01:00 Test Item Value Reference Range Interpretation Comments UA Sq Epi (test code = UA Sq Moderate /LPF Epi) [facility] AND [id number] 22:01:00 Test Item Value Reference Range Interpretation Comments UA WBC (test code = 5 See_Comment [Automa yue message] The UA WBC) system which ge nerated this result transmit yue reference range : <=5. The reference range was not used to interpr et this result as sera l/abnormal. [facility] AND [id number] 22:01:00 Test Item Value Reference Range Interpretation Comments UA Hyal Cast (test 5 See_Comment [Automat ed message] The code = UA Hyal Cast) system which generated this result transmit yue reference range : <=2. The reference range was not used to interpr et this result as sera l/abnormal. [facility] AND [id number] 22:01:00 Test Item Value Reference Range Interpretation Comments UA Mucus (test code = UA Mucus) Many /LPF [facility] AND [id number] 22:01:00 Test Item Value Reference Range Interpretation Comments UA Bacteria (test code = UA Occasional /HPF Bacteria) [facility] AND [id number] 22:01:00 Test Item Value Reference Range Interpretation Comments UA Ketones (test code = UA Ketones) Negative [facility] AND [id number] 22:01:00 Test Item Value Reference Range Interpretation Comments UA Mucus (test code = UA Mucus) Many /LPF [facility] AND [id number] 22:01:00 Test Item Value Reference Range Interpretation Comments UA Urobilinogen (test code = UA <=1.0 mg/dL 0.1-1.0 Urobilinogen) [facility] AND [id number] 22:01:00 Test Item Value Reference Range Interpretation Comments UA pH (test code = UA pH) 5.0 5.0-8.0 [facility] AND [id number] 22:01:00 Test Item Value Reference Range Interpretation Comments UA Protein (test code = UA Protein) 30 mg/dL [facility] AND [id number] 22:01:00 Test Item Value Reference Range Interpretation Comments UA Turbidity (test code Slight *ABN*(08/07/15 = UA Turbidity) 5:01 PM) [facility] AND [id number] 22:01:00 Test Item Value Reference Range Interpretation Comments UA Spec Grav (test code = UA Spec Grav) 1.019 [facility] AND [id number] 22:01:00 Test Item Value Reference Range Interpretation Comments UA Color (test code = Dark Yellow UA Color) *NA*(08/07/15 5:01 PM) [facility] AND [id number] 22:01:00 Test Item Value Reference Range Interpretation Comments UA Glucose (test code = UA Negative mg/dL Glucose) [facility] AND [id number] 22:01:00 Test Item Value Reference Range Interpretation Comments UA Blood (test code = Negative (08/07/15 5:01 UA Blood) PM) [facility] AND [id number] 22:01:00 Test Item Value Reference Range Interpretation Comments UA Bili (test code = Negative *NA*(08/07/15 UA Bili) 5:01 PM) [facility] AND [id number] 22:01:00 Test Item Value Reference Range Interpretation Comments UA Nitrite (test code Negative (08/07/15 5:01 = UA Nitrite) PM) [facility] AND [id number] 22:01:00 Test Item Value Reference Range Interpretation Comments UA Bacteria (test code = UA Occasional /HPF Bacteria) [facility] AND [id number] 22:01:00 Test Item Value Reference Range Interpretation Comments UA Leuk Est (test Negative (08/07/15 5:01 code = UA Leuk Est) PM) [facility] AND [id number] 22:01:00 Test Item Value Reference Range Interpretation Comments UA Ketones (test code = UA Ketones) Negative [facility] AND [id number] 22:01:00 Test Item Value Reference Range Interpretation Comments UA Urobilinogen (test code = UA <=1.0 mg/dL 0.1-1.0 Urobilinogen) [facility] AND [id number] 22:01:00 Test Item Value Reference Range Interpretation Comments UA pH (test code = UA pH) 5.0 5.0-8.0 [facility] AND [id number] 22:01:00 Test Item Value Reference Range Interpretation Comments UA Protein (test code = UA Protein) 30 mg/dL [facility] AND [id number] 22:01:00 Test Item Value Reference Range Interpretation Comments UA Turbidity (test code Slight *ABN*(08/07/15 = UA Turbidity) 5:01 PM) [facility] AND [id number] 22:01:00 Test Item Value Reference Range Interpretation Comments UA Spec Grav (test code = UA Spec Grav) 1.019 [facility] AND [id number] 22:01:00 Test Item Value Reference Range Interpretation Comments UA Color (test code = Dark Yellow UA Color) *NA*(08/07/15 5:01 PM) [facility] AND [id number] 22:01:00 Test Item Value Reference Range Interpretation Comments UA Glucose (test code = UA Negative mg/dL Glucose) [facility] AND [id number] 22:01:00 Test Item Value Reference Range Interpretation Comments UA Blood (test code = Negative (08/07/15 5:01 UA Blood) PM) [facility] AND [id number] 22:01:00 Test Item Value Reference Range Interpretation Comments UA Bili (test code = Negative *NA*(08/07/15 UA Bili) 5:01 PM) [facility] AND [id number] 22:01:00 Test Item Value Reference Range Interpretation Comments UA Nitrite (test code Negative (08/07/15 5:01 = UA Nitrite) PM) [facility] AND [id number] 22:01:00 Test Item Value Reference Range Interpretation Comments UA Leuk Est (test Negative (08/07/15 5:01 code = UA Leuk Est) PM) [facility] AND [id number] 22:01:00 Test Item Value Reference Range Interpretation Comments UA RBC (test code = 1 See_Comment [Automa yue message] The UA RBC) system which ge nerated this result transmit yue reference range : <=2. The reference range was not used to interpr et this result as sera l/abnormal. [facility] AND [id number] 22:01:00 Test Item Value Reference Range Interpretation Comments UA Sq Epi (test code = UA Sq Moderate /LPF Epi) [facility] AND [id number] 22:01:00 Test Item Value Reference Range Interpretation Comments UA WBC (test code = 5 See_Comment [Automa yue message] The UA WBC) system which ge nerated this result transmit yue reference range : <=5. The reference range was not used to interpr et this result as sera l/abnormal. [facility] AND [id number] 22:01:00 Test Item Value Reference Range Interpretation Comments UA Hyal Cast (test 5 See_Comment [Automat ed message] The code = UA Hyal Cast) system which generated this result transmit yue reference range : <=2. The reference range was not used to interpr et this result as sera l/abnormal. [facility] AND [id number] 22:01:00 Test Item Value Reference Range Interpretation Comments UA Mucus (test code = UA Mucus) Many /LPF [facility] AND [id number] 22:01:00 Test Item Value Reference Range Interpretation Comments UA Bacteria (test code = UA Occasional /HPF Bacteria) [facility] AND [id number] 22:01:00 Test Item Value Reference Range Interpretation Comments UA Ketones (test code = UA Ketones) Negative [facility] AND [id number] 22:01:00 Test Item Value Reference Range Interpretation Comments UA Urobilinogen (test code = UA <=1.0 mg/dL 0.1-1.0 Urobilinogen) [facility] AND [id number] 22:01:00 Test Item Value Reference Range Interpretation Comments UA pH (test code = UA pH) 5.0 5.0-8.0 [facility] AND [id number] 22:01:00 Test Item Value Reference Range Interpretation Comments UA Protein (test code = UA Protein) 30 mg/dL [facility] AND [id number] 22:01:00 Test Item Value Reference Range Interpretation Comments UA Turbidity (test code Slight *ABN*(08/07/15 = UA Turbidity) 5:01 PM) [facility] AND [id number] 22:01:00 Test Item Value Reference Range Interpretation Comments UA Spec Grav (test code = UA Spec Grav) 1.019 [facility] AND [id number] 22:01:00 Test Item Value Reference Range Interpretation Comments UA Color (test code = Dark Yellow UA Color) *NA*(08/07/15 5:01 PM) [facility] AND [id number] 22:01:00 Test Item Value Reference Range Interpretation Comments UA Glucose (test code = UA Negative mg/dL Glucose) [facility] AND [id number] 22:01:00 Test Item Value Reference Range Interpretation Comments UA Blood (test code = Negative (08/07/15 5:01 UA Blood) PM) [facility] AND [id number] 22:01:00 Test Item Value Reference Range Interpretation Comments UA Bili (test code = Negative *NA*(08/07/15 UA Bili) 5:01 PM) [facility] AND [id number] 22:01:00 Test Item Value Reference Range Interpretation Comments UA Nitrite (test code Negative (08/07/15 5:01 = UA Nitrite) PM) [facility] AND [id number] 22:01:00 Test Item Value Reference Range Interpretation Comments UA Leuk Est (test Negative (08/07/15 5:01 code = UA Leuk Est) PM) [facility] AND [id number] 22:01:00 Test Item Value Reference Range Interpretation Comments UA RBC (test code = 1 See_Comment [Automa yue message] The UA RBC) system which ge nerated this result transmit yue reference range : <=2. The reference range was not used to interpr et this result as sera l/abnormal. [facility] AND [id number] 22:01:00 Test Item Value Reference Range Interpretation Comments UA Sq Epi (test code = UA Sq Moderate /LPF Epi) [facility] AND [id number] 22:01:00 Test Item Value Reference Range Interpretation Comments UA WBC (test code = 5 See_Comment [Automa yue message] The UA WBC) system which ge nerated this result transmit yue reference range : <=5. The reference range was not used to interpr et this result as sera l/abnormal. [facility] AND [id number] 22:01:00 Test Item Value Reference Range Interpretation Comments UA Hyal Cast (test 5 See_Comment [Automat ed message] The code = UA Hyal Cast) system which generated this result transmit yue reference range : <=2. The reference range was not used to interpr et this result as sera l/abnormal. [facility] AND [id number] 22:01:00 Test Item Value Reference Range Interpretation Comments UA Mucus (test code = UA Mucus) Many /LPF [facility] AND [id number] 22:01:00 Test Item Value Reference Range Interpretation Comments UA Bacteria (test code = UA Occasional /HPF Bacteria) [facility] AND [id number] 22:01:00 Test Item Value Reference Range Interpretation Comments UA Ketones (test code = UA Ketones) Negative [facility] AND [id number] 22:01:00 Test Item Value Reference Range Interpretation Comments UA Urobilinogen (test code = UA <=1.0 mg/dL 0.1-1.0 Urobilinogen) [facility] AND [id number] 22:01:00 Test Item Value Reference Range Interpretation Comments UA pH (test code = UA pH) 5.0 5.0-8.0 [facility] AND [id number] 22:01:00 Test Item Value Reference Range Interpretation Comments UA Protein (test code = UA Protein) 30 mg/dL [facility] AND [id number] 22:01:00 Test Item Value Reference Range Interpretation Comments UA Turbidity (test code Slight *ABN*(08/07/15 = UA Turbidity) 5:01 PM) [facility] AND [id number] 22:01:00 Test Item Value Reference Range Interpretation Comments UA Spec Grav (test code = UA Spec Grav) 1.019 [facility] AND [id number] 22:01:00 Test Item Value Reference Range Interpretation Comments UA Color (test code = Dark Yellow UA Color) *NA*(08/07/15 5:01 PM) [facility] AND [id number] 22:01:00 Test Item Value Reference Range Interpretation Comments UA Glucose (test code = UA Negative mg/dL Glucose) [facility] AND [id number] 22:01:00 Test Item Value Reference Range Interpretation Comments UA Blood (test code = Negative (08/07/15 5:01 UA Blood) PM) [facility] AND [id number] 22:01:00 Test Item Value Reference Range Interpretation Comments UA Bili (test code = Negative *NA*(08/07/15 UA Bili) 5:01 PM) [facility] AND [id number] 22:01:00 Test Item Value Reference Range Interpretation Comments UA Nitrite (test code Negative (08/07/15 5:01 = UA Nitrite) PM) [facility] AND [id number] 22:01:00 Test Item Value Reference Range Interpretation Comments UA Leuk Est (test Negative (08/07/15 5:01 code = UA Leuk Est) PM) [facility] AND [id number] 22:01:00 Test Item Value Reference Range Interpretation Comments UA RBC (test code = 1 See_Comment [Automa yue message] The UA RBC) system which ge nerated this result transmit yue reference range : <=2. The reference range was not used to interpr et this result as sera l/abnormal. [facility] AND [id number] 22:01:00 Test Item Value Reference Range Interpretation Comments UA Sq Epi (test code = UA Sq Moderate /LPF Epi) [facility] AND [id number] 22:01:00 Test Item Value Reference Range Interpretation Comments UA WBC (test code = 5 See_Comment [Automa yue message] The UA WBC) system which ge nerated this result transmit yue reference range : <=5. The reference range was not used to interpr et this result as sera l/abnormal. [facility] AND [id number] 22:01:00 Test Item Value Reference Range Interpretation Comments UA Hyal Cast (test 5 See_Comment [Automat ed message] The code = UA Hyal Cast) system which generated this result transmit yue reference range : <=2. The reference range was not used to interpr et this result as sera l/abnormal. [facility] AND [id number] 22:01:00 Test Item Value Reference Range Interpretation Comments UA Mucus (test code = UA Mucus) Many /LPF [facility] AND [id number] 22:01:00 Test Item Value Reference Range Interpretation Comments UA Bacteria (test code = UA Occasional /HPF Bacteria) [facility] AND [id number] 22:01:00 Test Item Value Reference Range Interpretation Comments UA Ketones (test code = UA Ketones) Negative [facility] AND [id number] 22:01:00 Test Item Value Reference Range Interpretation Comments UA Urobilinogen (test code = UA <=1.0 mg/dL 0.1-1.0 Urobilinogen) [facility] AND [id number] 22:01:00 Test Item Value Reference Range Interpretation Comments UA pH (test code = UA pH) 5.0 5.0-8.0 [facility] AND [id number] 22:01:00 Test Item Value Reference Range Interpretation Comments UA Protein (test code = UA Protein) 30 mg/dL [facility] AND [id number] 22:01:00 Test Item Value Reference Range Interpretation Comments UA Turbidity (test code Slight *ABN*(08/07/15 = UA Turbidity) 5:01 PM) [facility] AND [id number] 22:01:00 Test Item Value Reference Range Interpretation Comments UA Spec Grav (test code = UA Spec Grav) 1.019 [facility] AND [id number] 22:01:00 Test Item Value Reference Range Interpretation Comments UA Color (test code = Dark Yellow UA Color) *NA*(08/07/15 5:01 PM) [facility] AND [id number] 22:01:00 Test Item Value Reference Range Interpretation Comments UA Glucose (test code = UA Negative mg/dL Glucose) [facility] AND [id number] 22:01:00 Test Item Value Reference Range Interpretation Comments UA Blood (test code = Negative (08/07/15 5:01 UA Blood) PM) [facility] AND [id number] 22:01:00 Test Item Value Reference Range Interpretation Comments UA Bili (test code = Negative *NA*(08/07/15 UA Bili) 5:01 PM) [facility] AND [id number] 22:01:00 Test Item Value Reference Range Interpretation Comments UA Nitrite (test code Negative (08/07/15 5:01 = UA Nitrite) PM) [facility] AND [id number] 22:01:00 Test Item Value Reference Range Interpretation Comments UA Leuk Est (test Negative (08/07/15 5:01 code = UA Leuk Est) PM) [id number] 21:02:00 Test Item Value Reference Range Interpretation Comments B/C Ratio (test code = B/C Ratio) 9 6-25 [place] [id number] 21:02:00 Test Item Value Reference Range Interpretation Comments A/G Ratio (test code = A/G Ratio) 1.2 0.7-1.6 [facility]2016-03-30 21:02:00 Test Item Value Reference Range Interpretation Comments Globulin (test code = Globulin) 3.7 2.0-4.0 [facility]2016-03-30 21:02:00 Test Item Value Reference Range Interpretation Comments AGAP (test code = AGAP) 15.1 10.0-20.0 [facility]2016-03-30 21:02:00 Test Item Value Reference Range Interpretation Comments eGFR (test code = eGFR) 33 [facility]2016-03-30 21:02:00 Test Item Value Reference Range Interpretation Comments ALT (test code = ALT) 24 See_Comment [Auto mated message] The system which ge nerated this result transmit yue reference range : <=65. The reference range was not used to interpr et this result as sera l/abnormal. [facility]2016-03-30 21:02:00 Test Item Value Reference Range Interpretation Comments AST (test code = AST) 38 See_Comment [Auto mated message] The system which ge nerated this result transmit yue reference range : <=37. The reference range was not used to interpr et this result as sera l/abnormal. [facility]2016-03-30 21:02:00 Test Item Value Reference Range Interpretation Comments Creatinine Lvl (test code = Creatinine 1.73 0.50-1.40 Lvl) [facility]2016-03-30 21:02:00 Test Item Value Reference Range Interpretation Comments Glucose Lvl (test code = Glucose Lvl) 104 70-99 [facility]2016-03-30 21:02:00 Test Item Value Reference Range Interpretation Comments BUN (test code = BUN) 15 7-22 [facility]2016-03-30 21:02:00 Test Item Value Reference Range Interpretation Comments Bili Total (test code = Bili Total) 0.3 0.2-1.3 [place] [id number] 21:02:00 Test Item Value Reference Range Interpretation Comments Total Protein (test code = Total 8.0 6.4-8.4 Protein) [facility]2016-03-30 21:02:00 Test Item Value Reference Range Interpretation Comments Alk Phos (test code = Alk Phos) 83 39-136 [facility]2016-03-30 21:02:00 Test Item Value Reference Range Interpretation Comments Potassium Lvl (test code = Potassium 3.1 3.5-5.1 Lvl) [facility]2016-03-30 21:02:00 Test Item Value Reference Range Interpretation Comments Sodium Lvl (test code = Sodium Lvl) 143 135-145 [facility]2016-03-30 21:02:00 Test Item Value Reference Range Interpretation Comments CO2 (test code = CO2) 30 24-32 [facility]2016-03-30 21:02:00 Test Item Value Reference Range Interpretation Comments Chloride Lvl (test code = Chloride Lvl) 101 95-109 [facility]2016-03-30 21:02:00 Test Item Value Reference Range Interpretation Comments Calcium Lvl (test code = Calcium Lvl) 9.5 8.5-10.5 [facility]2016-03-30 21:02:00 Test Item Value Reference Range Interpretation Comments Albumin Lvl (test code = Albumin Lvl) 4.3 3.5-5.0 [id number] 21:02:00 Test Item Value Reference Range Interpretation Comments Monocytes # (test code 0.7 See_Comment [Aut omated message] The = Monocytes #) system which generated this result tra nsmitted reference range : <=0.8. The reference r xu was not used to int erpret this result as normal/abnormal . [id number] 21:02:00 Test Item Value Reference Range Interpretation Comments Eosinophils # (test code 0.0 See_Comment [A utomated message] The = Eosinophils #) system whic h generated this result tra nsmitted reference range : <=0.5. The reference r xu was not used to int erpret this result as normal/abnormal . [id number] 21:02:00 Test Item Value Reference Range Interpretation Comments Lymphocytes (test code = Lymphocytes) 28.2 20.0-40.0 [id number] 21:02:00 Test Item Value Reference Range Interpretation Comments Segs (test code = Segs) 62.2 45.0-75.0 [facility]hvcrrCGAFVHMYED2614-16-47 21:02:00 Test Item Value Reference Range Interpretation Comments Monocytes (test code = Monocytes) 9.3 2.0-12.0 [id number] 21:02:00 Test Item Value Reference Range Interpretation Comments Lymphocytes # (test code = Lymphocytes 2.2 1.0-5.5 #) [id number] 21:02:00 Test Item Value Reference Range Interpretation Comments Eosinophils (test code = 0.0 See_Comment [A utomated message] The Eosinophils) system which ge nerated this result tra nsmitted reference range : <=4.0. The reference r xu was not used to int erpret this result as normal/abnormal . [id number] 21:02:00 Test Item Value Reference Range Interpretation Comments Basophils (test code = 0.3 See_Comment [Aut omated message] The Basophils) system which ge nerated this result tra nsmitted reference range : <=1.0. The reference r xu was not used to int erpret this result as normal/abnormal . [id number] 21:02:00 Test Item Value Reference Range Interpretation Comments Segs-Bands # (test code = Segs-Bands #) 4.9 1.5-8.1 [id number] 21:02:00 Test Item Value Reference Range Interpretation Comments Hgb (test code = Hgb) 13.4 12.0-16.0 [facility]ErgfxabVSQQZLBUNV7380-36-04 21:02:00 Test Item Value Reference Range Interpretation Comments MCH (test code = MCH) 28.0 pg 27.0-31.0 [id number] 21:02:00 Test Item Value Reference Range Interpretation Comments Hct (test code = Hct) 41.0 36.0-48.0 [id number] 21:02:00 Test Item Value Reference Range Interpretation Comments MCV (test code = MCV) 85.6 80.0-98.0 [facility]AxawblcDMKQHFTPCJ0275-18-80 21:02:00 Test Item Value Reference Range Interpretation Comments RDW (test code = RDW) 13.6 11.5-14.5 [id number] 21:02:00 Test Item Value Reference Range Interpretation Comments Platelet (test code = Platelet) 198 133-450 [facility]CvnshbvOLBXFNAWMK6382-95-80 21:02:00 Test Item Value Reference Range Interpretation Comments MCHC (test code = MCHC) 32.6 32.0-36.0 [facility]HrftacxCVOXCTZCJV2373-34-25 21:02:00 Test Item Value Reference Range Interpretation Comments MPV (test code = MPV) 8.5 7.4-10.4 [id number] 21:02:00 Test Item Value Reference Range Interpretation Comments WBC (test code = WBC) 7.9 3.7-10.4 [facility]BgiyglzWNUDVQONBP5772-01-02 21:02:00 Test Item Value Reference Range Interpretation Comments RBC (test code = RBC) 4.78 4.20-5.40 [facility]2016-03-30 21:02:00 Test Item Value Reference Range Interpretation Comments B/C Ratio (test code = B/C Ratio) 9 6-25 [facility]2016-03-30 21:02:00 Test Item Value Reference Range Interpretation Comments A/G Ratio (test code = A/G Ratio) 1.2 0.7-1.6 [facility]2016-03-30 21:02:00 Test Item Value Reference Range Interpretation Comments Globulin (test code = Globulin) 3.7 2.0-4.0 [facility]2016-03-30 21:02:00 Test Item Value Reference Range Interpretation Comments AGAP (test code = AGAP) 15.1 10.0-20.0 [facility]2016-03-30 21:02:00 Test Item Value Reference Range Interpretation Comments eGFR (test code = eGFR) 33 [facility]2016-03-30 21:02:00 Test Item Value Reference Range Interpretation Comments ALT (test code = ALT) 24 See_Comment [Auto mated message] The system which ge nerated this result transmit yue reference range : <=65. The reference range was not used to interpr et this result as sera l/abnormal. [facility]2016-03-30 21:02:00 Test Item Value Reference Range Interpretation Comments AST (test code = AST) 38 See_Comment [Auto mated message] The system which ge nerated this result transmit yue reference range : <=37. The reference range was not used to interpr et this result as sera l/abnormal. [facility]2016-03-30 21:02:00 Test Item Value Reference Range Interpretation Comments Creatinine Lvl (test code = Creatinine 1.73 0.50-1.40 Lvl) [facility]2016-03-30 21:02:00 Test Item Value Reference Range Interpretation Comments Glucose Lvl (test code = Glucose Lvl) 104 70-99 [facility]2016-03-30 21:02:00 Test Item Value Reference Range Interpretation Comments BUN (test code = BUN) 15 7-22 [facility]2016-03-30 21:02:00 Test Item Value Reference Range Interpretation Comments Bili Total (test code = Bili Total) 0.3 0.2-1.3 [facility]2016-03-30 21:02:00 Test Item Value Reference Range Interpretation Comments Total Protein (test code = Total 8.0 6.4-8.4 Protein) [facility]2016-03-30 21:02:00 Test Item Value Reference Range Interpretation Comments Alk Phos (test code = Alk Phos) 83 39-136 [facility]2016-03-30 21:02:00 Test Item Value Reference Range Interpretation Comments Potassium Lvl (test code = Potassium 3.1 3.5-5.1 Lvl) [facility]2016-03-30 21:02:00 Test Item Value Reference Range Interpretation Comments Sodium Lvl (test code = Sodium Lvl) 143 135-145 [facility]2016-03-30 21:02:00 Test Item Value Reference Range Interpretation Comments CO2 (test code = CO2) 30 24-32 [facility]2016-03-30 21:02:00 Test Item Value Reference Range Interpretation Comments Chloride Lvl (test code = Chloride Lvl) 101 95-109 [facility]2016-03-30 21:02:00 Test Item Value Reference Range Interpretation Comments Calcium Lvl (test code = Calcium Lvl) 9.5 8.5-10.5 [facility]2016-03-30 21:02:00 Test Item Value Reference Range Interpretation Comments Albumin Lvl (test code = Albumin Lvl) 4.3 3.5-5.0 [facility] 21:02:00 Test Item Value Reference Range Interpretation Comments Monocytes # (test code 0.7 See_Comment [Aut omated message] The = Monocytes #) system which generated this result tra nsmitted reference range : <=0.8. The reference r xu was not used to int erpret this result as normal/abnormal . [facility]JojdvlxYNVBAHHEEC3966-49-99 21:02:00 Test Item Value Reference Range Interpretation Comments Eosinophils # (test code 0.0 See_Comment [A utomated message] The = Eosinophils #) system whic h generated this result tra nsmitted reference range : <=0.5. The reference r xu was not used to int erpret this result as normal/abnormal . [facility]GbxgkzmXNFWZAJDLU3322-60-71 21:02:00 Test Item Value Reference Range Interpretation Comments Lymphocytes (test code = Lymphocytes) 28.2 20.0-40.0 [facility]GffnsujZPFRDDFIQC5248-04-14 21:02:00 Test Item Value Reference Range Interpretation Comments Segs (test code = Segs) 62.2 45.0-75.0 [facility]ArtwccbBTQFKCRWTL4580-77-95 21:02:00 Test Item Value Reference Range Interpretation Comments Monocytes (test code = Monocytes) 9.3 2.0-12.0 [facility]KsftximFUCGKPVZCW4501-88-39 21:02:00 Test Item Value Reference Range Interpretation Comments Lymphocytes # (test code = Lymphocytes 2.2 1.0-5.5 #) [facility]EubrdagOPHQVVBEOG5135-52-61 21:02:00 Test Item Value Reference Range Interpretation Comments Eosinophils (test code = 0.0 See_Comment [A utomated message] The Eosinophils) system which ge nerated this result tra nsmitted reference range : <=4.0. The reference r xu was not used to int erpret this result as normal/abnormal . [facility]DgsutatRQZAFUVEGB9349-36-44 21:02:00 Test Item Value Reference Range Interpretation Comments Basophils (test code = 0.3 See_Comment [Aut omated message] The Basophils) system which ge nerated this result tra nsmitted reference range : <=1.0. The reference r xu was not used to int erpret this result as normal/abnormal . [facility]VanbzxeFNYLMPBLHJ8303-75-32 21:02:00 Test Item Value Reference Range Interpretation Comments Segs-Bands # (test code = Segs-Bands #) 4.9 1.5-8.1 [facility]KrzbtqvGAUMWVYHMX4660-15-13 21:02:00 Test Item Value Reference Range Interpretation Comments Hgb (test code = Hgb) 13.4 12.0-16.0 [facility]ZfltmttTNSZVXTCRQ5701-83-14 21:02:00 Test Item Value Reference Range Interpretation Comments MCH (test code = MCH) 28.0 pg 27.0-31.0 [facility]IbntwqfQVYACCRZRZ2835-44-61 21:02:00 Test Item Value Reference Range Interpretation Comments Hct (test code = Hct) 41.0 36.0-48.0 [facility]AbaxbnbFDYMRKPTJP9208-77-21 21:02:00 Test Item Value Reference Range Interpretation Comments MCV (test code = MCV) 85.6 80.0-98.0 [facility]DlhpuieCCRTMRDXBK7245-35-88 21:02:00 Test Item Value Reference Range Interpretation Comments RDW (test code = RDW) 13.6 11.5-14.5 [facility]HztzqycKYSKMJFLYS2320-29-61 21:02:00 Test Item Value Reference Range Interpretation Comments Platelet (test code = Platelet) 198 133-450 [facility]VzegpfcPWGWOWKTHS3816-14-27 21:02:00 Test Item Value Reference Range Interpretation Comments MCHC (test code = MCHC) 32.6 32.0-36.0 [facility]HgocoqaULEYTRYARZ0567-34-18 21:02:00 Test Item Value Reference Range Interpretation Comments MPV (test code = MPV) 8.5 7.4-10.4 [facility]SbyygsyIIFIMXXMLU8796-85-06 21:02:00 Test Item Value Reference Range Interpretation Comments WBC (test code = WBC) 7.9 3.7-10.4 [facility]GustavmNPDDMYPSMN3623-15-23 21:02:00 Test Item Value Reference Range Interpretation Comments RBC (test code = RBC) 4.78 4.20-5.40 [place] 702886-03-30 21:02:00 Test Item Value Reference Range Interpretation Comments B/C Ratio (test code = B/C Ratio) 9 6-25 [place] 702886-03-30 21:02:00 Test Item Value Reference Range Interpretation Comments A/G Ratio (test code = A/G Ratio) 1.2 0.7-1.6 [place] 702886-03-30 21:02:00 Test Item Value Reference Range Interpretation Comments Globulin (test code = Globulin) 3.7 2.0-4.0 [place] 702886-03-30 21:02:00 Test Item Value Reference Range Interpretation Comments AGAP (test code = AGAP) 15.1 10.0-20.0 [facility]2016-03-30 21:02:00 Test Item Value Reference Range Interpretation Comments eGFR (test code = eGFR) 33 [facility]2016-03-30 21:02:00 Test Item Value Reference Range Interpretation Comments ALT (test code = ALT) 24 See_Comment [Auto mated message] The system which ge nerated this result transmit yue reference range : <=65. The reference range was not used to interpr et this result as sera l/abnormal. [facility]2016-03-30 21:02:00 Test Item Value Reference Range Interpretation Comments AST (test code = AST) 38 See_Comment [Auto mated message] The system which ge nerated this result transmit yue reference range : <=37. The reference range was not used to interpr et this result as sera l/abnormal. [facility]2016-03-30 21:02:00 Test Item Value Reference Range Interpretation Comments Creatinine Lvl (test code = Creatinine 1.73 0.50-1.40 Lvl) [facility]2016-03-30 21:02:00 Test Item Value Reference Range Interpretation Comments Glucose Lvl (test code = Glucose Lvl) 104 70-99 [facility]2016-03-30 21:02:00 Test Item Value Reference Range Interpretation Comments BUN (test code = BUN) 15 7-22 [facility]2016-03-30 21:02:00 Test Item Value Reference Range Interpretation Comments Bili Total (test code = Bili Total) 0.3 0.2-1.3 [facility]2016-03-30 21:02:00 Test Item Value Reference Range Interpretation Comments Total Protein (test code = Total 8.0 6.4-8.4 Protein) [facility]2016-03-30 21:02:00 Test Item Value Reference Range Interpretation Comments Alk Phos (test code = Alk Phos) 83 39-136 [facility]2016-03-30 21:02:00 Test Item Value Reference Range Interpretation Comments Potassium Lvl (test code = Potassium 3.1 3.5-5.1 Lvl) [facility]2016-03-30 21:02:00 Test Item Value Reference Range Interpretation Comments Sodium Lvl (test code = Sodium Lvl) 143 135-145 [facility]2016-03-30 21:02:00 Test Item Value Reference Range Interpretation Comments CO2 (test code = CO2) 30 24-32 [facility]2016-03-30 21:02:00 Test Item Value Reference Range Interpretation Comments Chloride Lvl (test code = Chloride Lvl) 101 95-109 [facility]2016-03-30 21:02:00 Test Item Value Reference Range Interpretation Comments Calcium Lvl (test code = Calcium Lvl) 9.5 8.5-10.5 [facility]2016-03-30 21:02:00 Test Item Value Reference Range Interpretation Comments Albumin Lvl (test code = Albumin Lvl) 4.3 3.5-5.0 [facility]KgfyyluOJNPLHUPFX3397-12-67 21:02:00 Test Item Value Reference Range Interpretation Comments Monocytes # (test code 0.7 See_Comment [Aut omated message] The = Monocytes #) system which generated this result tra nsmitted reference range : <=0.8. The reference r xu was not used to int erpret this result as normal/abnormal . [facility]VzvjndpHXQOUVLLYL4065-60-84 21:02:00 Test Item Value Reference Range Interpretation Comments Eosinophils # (test code 0.0 See_Comment [A utomated message] The = Eosinophils #) system whic h generated this result tra nsmitted reference range : <=0.5. The reference r xu was not used to int erpret this result as normal/abnormal . [facility]PqfgyyjETKBSXWFYE8637-49-24 21:02:00 Test Item Value Reference Range Interpretation Comments Lymphocytes (test code = Lymphocytes) 28.2 20.0-40.0 [facility]KucwvchFHLZYYKTVQ6245-22-56 21:02:00 Test Item Value Reference Range Interpretation Comments Segs (test code = Segs) 62.2 45.0-75.0 [facility]PqlmkogEJLAIVDXQZ7008-51-58 21:02:00 Test Item Value Reference Range Interpretation Comments Monocytes (test code = Monocytes) 9.3 2.0-12.0 [facility]FcccyhcXDRLLKABFE1408-00-30 21:02:00 Test Item Value Reference Range Interpretation Comments Lymphocytes # (test code = Lymphocytes 2.2 1.0-5.5 #) [facility]AziglysTMKCPRZCHX5996-71-22 21:02:00 Test Item Value Reference Range Interpretation Comments Eosinophils (test code = 0.0 See_Comment [A utomated message] The Eosinophils) system which ge nerated this result tra nsmitted reference range : <=4.0. The reference r xu was not used to int erpret this result as normal/abnormal . [facility]NnfyrgoLXCXWTTHRH1160-98-33 21:02:00 Test Item Value Reference Range Interpretation Comments Basophils (test code = 0.3 See_Comment [Aut omated message] The Basophils) system which ge nerated this result tra nsmitted reference range : <=1.0. The reference r xu was not used to int erpret this result as normal/abnormal . [facility]TwabucaUWAWNNYPQV7663-72-09 21:02:00 Test Item Value Reference Range Interpretation Comments Segs-Bands # (test code = Segs-Bands #) 4.9 1.5-8.1 [facility]ExmzilcNMOELRFDBJ3176-25-02 21:02:00 Test Item Value Reference Range Interpretation Comments Hgb (test code = Hgb) 13.4 12.0-16.0 [facility]FvubjtwNZUSOQEJQL2528-11-77 21:02:00 Test Item Value Reference Range Interpretation Comments MCH (test code = MCH) 28.0 pg 27.0-31.0 [facility]ZpmxayeTTPXFIRKXV1447-24-50 21:02:00 Test Item Value Reference Range Interpretation Comments Hct (test code = Hct) 41.0 36.0-48.0 [facility]FpvlvymZRYIJXWWRA9059-54-37 21:02:00 Test Item Value Reference Range Interpretation Comments MCV (test code = MCV) 85.6 80.0-98.0 [facility]DjtdkrrSKUJEITATM6041-77-70 21:02:00 Test Item Value Reference Range Interpretation Comments RDW (test code = RDW) 13.6 11.5-14.5 [facility]XofdgbnGGOBKFCQUM0238-15-19 21:02:00 Test Item Value Reference Range Interpretation Comments Platelet (test code = Platelet) 198 133-450 [facility]AceusioSJIPWSEWKE5865-05-24 21:02:00 Test Item Value Reference Range Interpretation Comments MCHC (test code = MCHC) 32.6 32.0-36.0 [facility]VeybavmKQYAUSMAZR0523-29-89 21:02:00 Test Item Value Reference Range Interpretation Comments MPV (test code = MPV) 8.5 7.4-10.4 [facility]WwindhpPAVILGVHKV1438-03-69 21:02:00 Test Item Value Reference Range Interpretation Comments WBC (test code = WBC) 7.9 3.7-10.4 [facility]OfbjuzyKBGSNSERLG8160-11-11 21:02:00 Test Item Value Reference Range Interpretation Comments RBC (test code = RBC) 4.78 4.20-5.40 [facility]2016-03-30 21:02:00 Test Item Value Reference Range Interpretation Comments B/C Ratio (test code = B/C Ratio) 9 6-25 [facility]2016-03-30 21:02:00 Test Item Value Reference Range Interpretation Comments A/G Ratio (test code = A/G Ratio) 1.2 0.7-1.6 [facility]2016-03-30 21:02:00 Test Item Value Reference Range Interpretation Comments Globulin (test code = Globulin) 3.7 2.0-4.0 [facility]2016-03-30 21:02:00 Test Item Value Reference Range Interpretation Comments AGAP (test code = AGAP) 15.1 10.0-20.0 [facility]2016-03-30 21:02:00 Test Item Value Reference Range Interpretation Comments eGFR (test code = eGFR) 33 [facility]2016-03-30 21:02:00 Test Item Value Reference Range Interpretation Comments ALT (test code = ALT) 24 See_Comment [Auto mated message] The system which ge nerated this result transmit yue reference range : <=65. The reference range was not used to interpr et this result as sera l/abnormal. [facility]2016-03-30 21:02:00 Test Item Value Reference Range Interpretation Comments AST (test code = AST) 38 See_Comment [Auto mated message] The system which ge nerated this result transmit yue reference range : <=37. The reference range was not used to interpr et this result as sera l/abnormal. [facility]2016-03-30 21:02:00 Test Item Value Reference Range Interpretation Comments Creatinine Lvl (test code = Creatinine 1.73 0.50-1.40 Lvl) [facility]2016-03-30 21:02:00 Test Item Value Reference Range Interpretation Comments Glucose Lvl (test code = Glucose Lvl) 104 70-99 [facility]2016-03-30 21:02:00 Test Item Value Reference Range Interpretation Comments BUN (test code = BUN) 15 7-22 [facility]2016-03-30 21:02:00 Test Item Value Reference Range Interpretation Comments Bili Total (test code = Bili Total) 0.3 0.2-1.3 [facility]2016-03-30 21:02:00 Test Item Value Reference Range Interpretation Comments Total Protein (test code = Total 8.0 6.4-8.4 Protein) [facility]2016-03-30 21:02:00 Test Item Value Reference Range Interpretation Comments Alk Phos (test code = Alk Phos) 83 39-136 [facility]2016-03-30 21:02:00 Test Item Value Reference Range Interpretation Comments Potassium Lvl (test code = Potassium 3.1 3.5-5.1 Lvl) [facility]2016-03-30 21:02:00 Test Item Value Reference Range Interpretation Comments Sodium Lvl (test code = Sodium Lvl) 143 135-145 [facility]2016-03-30 21:02:00 Test Item Value Reference Range Interpretation Comments CO2 (test code = CO2) 30 24-32 [place] 702886-03-30 21:02:00 Test Item Value Reference Range Interpretation Comments Chloride Lvl (test code = Chloride Lvl) 101 95-109 [facility]2016-03-30 21:02:00 Test Item Value Reference Range Interpretation Comments Calcium Lvl (test code = Calcium Lvl) 9.5 8.5-10.5 [facility]2016-03-30 21:02:00 Test Item Value Reference Range Interpretation Comments Albumin Lvl (test code = Albumin Lvl) 4.3 3.5-5.0 [facility]FtpidjgMKRORSFPUX1468-24-66 21:02:00 Test Item Value Reference Range Interpretation Comments Monocytes # (test code 0.7 See_Comment [Aut omated message] The = Monocytes #) system which generated this result tra nsmitted reference range : <=0.8. The reference r xu was not used to int erpret this result as normal/abnormal . [facility]XcuglikMRBKJOBICJ1597-34-01 21:02:00 Test Item Value Reference Range Interpretation Comments Eosinophils # (test code 0.0 See_Comment [A utomated message] The = Eosinophils #) system whic h generated this result tra nsmitted reference range : <=0.5. The reference r xu was not used to int erpret this result as normal/abnormal . [facility]ImnsyytGUHABJCMMI0750-93-14 21:02:00 Test Item Value Reference Range Interpretation Comments Lymphocytes (test code = Lymphocytes) 28.2 20.0-40.0 [facility]CgaliemWFGWFUKNUZ0060-52-74 21:02:00 Test Item Value Reference Range Interpretation Comments Segs (test code = Segs) 62.2 45.0-75.0 [facility]GvcxawqWCIGHTWHGQ0772-63-98 21:02:00 Test Item Value Reference Range Interpretation Comments Monocytes (test code = Monocytes) 9.3 2.0-12.0 [facility]XhybgpeHFPGICMBQZ3339-88-97 21:02:00 Test Item Value Reference Range Interpretation Comments Lymphocytes # (test code = Lymphocytes 2.2 1.0-5.5 #) [facility]RwwgtthZSVLMXACED2582-17-93 21:02:00 Test Item Value Reference Range Interpretation Comments Eosinophils (test code = 0.0 See_Comment [A utomated message] The Eosinophils) system which ge nerated this result tra nsmitted reference range : <=4.0. The reference r xu was not used to int erpret this result as normal/abnormal . [facility]GstzfkrIOPZWAUSWR5677-06-22 21:02:00 Test Item Value Reference Range Interpretation Comments Basophils (test code = 0.3 See_Comment [Aut omated message] The Basophils) system which ge nerated this result tra nsmitted reference range : <=1.0. The reference r xu was not used to int erpret this result as normal/abnormal . [facility]PqvnpqwUIHNFETBEB7820-80-73 21:02:00 Test Item Value Reference Range Interpretation Comments Segs-Bands # (test code = Segs-Bands #) 4.9 1.5-8.1 [facility]EtlftuyVUKGKTXARX6052-12-96 21:02:00 Test Item Value Reference Range Interpretation Comments Hgb (test code = Hgb) 13.4 12.0-16.0 [facility]JxkgmvpECKUVRKWJI3646-93-97 21:02:00 Test Item Value Reference Range Interpretation Comments MCH (test code = MCH) 28.0 pg 27.0-31.0 [facility]FchijspRRNABSQTSR2726-63-38 21:02:00 Test Item Value Reference Range Interpretation Comments Hct (test code = Hct) 41.0 36.0-48.0 [facility]SpyhwdjWHBBEUWXIH1213-75-86 21:02:00 Test Item Value Reference Range Interpretation Comments MCV (test code = MCV) 85.6 80.0-98.0 [facility]FtsfzkbGDHZYRBUKB8750-04-54 21:02:00 Test Item Value Reference Range Interpretation Comments RDW (test code = RDW) 13.6 11.5-14.5 [facility]MgiqkwqXDFCYBEDSQ9297-59-97 21:02:00 Test Item Value Reference Range Interpretation Comments Platelet (test code = Platelet) 198 133-450 [facility]TewjnuuJCAMZZKEGM7794-75-86 21:02:00 Test Item Value Reference Range Interpretation Comments MCHC (test code = MCHC) 32.6 32.0-36.0 [facility]MrxkadmQOHBSVAPLR7871-75-62 21:02:00 Test Item Value Reference Range Interpretation Comments MPV (test code = MPV) 8.5 7.4-10.4 [facility]LgmiaavRIQZXEOHVZ6777-01-94 21:02:00 Test Item Value Reference Range Interpretation Comments WBC (test code = WBC) 7.9 3.7-10.4 [facility] 21:02:00 Test Item Value Reference Range Interpretation Comments RBC (test code = RBC) 4.78 4.20-5.40 [facility]2016-03-30 21:02:00 Test Item Value Reference Range Interpretation Comments B/C Ratio (test code = B/C Ratio) 9 6-25 [facility]2016-03-30 21:02:00 Test Item Value Reference Range Interpretation Comments A/G Ratio (test code = A/G Ratio) 1.2 0.7-1.6 [facility]2016-03-30 21:02:00 Test Item Value Reference Range Interpretation Comments Globulin (test code = Globulin) 3.7 2.0-4.0 [facility]2016-03-30 21:02:00 Test Item Value Reference Range Interpretation Comments AGAP (test code = AGAP) 15.1 10.0-20.0 [facility]2016-03-30 21:02:00 Test Item Value Reference Range Interpretation Comments eGFR (test code = eGFR) 33 [facility]2016-03-30 21:02:00 Test Item Value Reference Range Interpretation Comments ALT (test code = ALT) 24 See_Comment [Auto mated message] The system which ge nerated this result transmit yue reference range : <=65. The reference range was not used to interpr et this result as sera l/abnormal. [facility]2016-03-30 21:02:00 Test Item Value Reference Range Interpretation Comments AST (test code = AST) 38 See_Comment [Auto mated message] The system which ge nerated this result transmit yue reference range : <=37. The reference range was not used to interpr et this result as sera l/abnormal. [facility]2016-03-30 21:02:00 Test Item Value Reference Range Interpretation Comments Creatinine Lvl (test code = Creatinine 1.73 0.50-1.40 Lvl) [facility]2016-03-30 21:02:00 Test Item Value Reference Range Interpretation Comments Glucose Lvl (test code = Glucose Lvl) 104 70-99 [facility]2016-03-30 21:02:00 Test Item Value Reference Range Interpretation Comments BUN (test code = BUN) 15 7-22 [facility]2016-03-30 21:02:00 Test Item Value Reference Range Interpretation Comments Bili Total (test code = Bili Total) 0.3 0.2-1.3 [facility]2016-03-30 21:02:00 Test Item Value Reference Range Interpretation Comments Total Protein (test code = Total 8.0 6.4-8.4 Protein) [facility]2016-03-30 21:02:00 Test Item Value Reference Range Interpretation Comments Alk Phos (test code = Alk Phos) 83 39-136 [facility]2016-03-30 21:02:00 Test Item Value Reference Range Interpretation Comments Potassium Lvl (test code = Potassium 3.1 3.5-5.1 Lvl) [facility]2016-03-30 21:02:00 Test Item Value Reference Range Interpretation Comments Sodium Lvl (test code = Sodium Lvl) 143 135-145 [facility]2016-03-30 21:02:00 Test Item Value Reference Range Interpretation Comments CO2 (test code = CO2) 30 24-32 [facility]2016-03-30 21:02:00 Test Item Value Reference Range Interpretation Comments Chloride Lvl (test code = Chloride Lvl) 101 95-109 [facility]2016-03-30 21:02:00 Test Item Value Reference Range Interpretation Comments Calcium Lvl (test code = Calcium Lvl) 9.5 8.5-10.5 [facility]2016-03-30 21:02:00 Test Item Value Reference Range Interpretation Comments Albumin Lvl (test code = Albumin Lvl) 4.3 3.5-5.0 [facility]RivebotEVNEBKTKBM3440-08-61 21:02:00 Test Item Value Reference Range Interpretation Comments Monocytes # (test code 0.7 See_Comment [Aut omated message] The = Monocytes #) system which generated this result tra nsmitted reference range : <=0.8. The reference r xu was not used to int erpret this result as normal/abnormal . [facility]VcjurmhIDZFVVVKWI5029-31-93 21:02:00 Test Item Value Reference Range Interpretation Comments Eosinophils # (test code 0.0 See_Comment [A utomated message] The = Eosinophils #) system whic h generated this result tra nsmitted reference range : <=0.5. The reference r xu was not used to int erpret this result as normal/abnormal . [facility]HjupxhgPOYUNGRQHT2655-46-08 21:02:00 Test Item Value Reference Range Interpretation Comments Lymphocytes (test code = Lymphocytes) 28.2 20.0-40.0 [facility]CdwphweCTFHFQPYJD8291-05-23 21:02:00 Test Item Value Reference Range Interpretation Comments Segs (test code = Segs) 62.2 45.0-75.0 [facility]LggrbukBTXTHQUUPY0854-49-80 21:02:00 Test Item Value Reference Range Interpretation Comments Monocytes (test code = Monocytes) 9.3 2.0-12.0 [facility]SmkphbfEXKIALRLZL6990-94-98 21:02:00 Test Item Value Reference Range Interpretation Comments Lymphocytes # (test code = Lymphocytes 2.2 1.0-5.5 #) [facility]KewtzgiHYSLPYGIYY9066-08-53 21:02:00 Test Item Value Reference Range Interpretation Comments Eosinophils (test code = 0.0 See_Comment [A utomated message] The Eosinophils) system which ge nerated this result tra nsmitted reference range : <=4.0. The reference r xu was not used to int erpret this result as normal/abnormal . [facility]io[facility]bgMRTGMFMATV7663[facility]18-45 21:02:00 Test Item Value Reference Range Interpretation Comments Basophils (test code = 0.3 See_Comment [Aut omated message] The Basophils) system which ge nerated this result tra nsmitted reference range : <=1.0. The reference r xu was not used to int erpret this result as normal/abnormal . [facility]WcmcsyfOOKKCPEBCR5658-64-16 21:02:00 Test Item Value Reference Range Interpretation Comments Segs-Bands # (test code = Segs-Bands #) 4.9 1.5-8.1 [facility]IhqacirCGDBFAVWPW7839-60-37 21:02:00 Test Item Value Reference Range Interpretation Comments Hgb (test code = Hgb) 13.4 12.0-16.0 [facility]PsygrzdYUCXSTONNU5364-61-16 21:02:00 Test Item Value Reference Range Interpretation Comments MCH (test code = MCH) 28.0 pg 27.0-31.0 [facility]WoonagrTMPXNZUMZO3102-16-18 21:02:00 Test Item Value Reference Range Interpretation Comments Hct (test code = Hct) 41.0 36.0-48.0 [facility]WcxqenwCALGAVAZUM1466-56-03 21:02:00 Test Item Value Reference Range Interpretation Comments MCV (test code = MCV) 85.6 80.0-98.0 [facility]JbldxtpEPQSXCZHQP9887-19-56 21:02:00 Test Item Value Reference Range Interpretation Comments RDW (test code = RDW) 13.6 11.5-14.5 [facility]KpssllbOZFHTIMYYA7593-36-38 21:02:00 Test Item Value Reference Range Interpretation Comments Platelet (test code = Platelet) 198 133-450 [facility]SxjavcwSGRHZMBXCY7084-27-95 21:02:00 Test Item Value Reference Range Interpretation Comments MCHC (test code = MCHC) 32.6 32.0-36.0 [facility]VgrpkdiVKYUXAGYZV4256-62-82 21:02:00 Test Item Value Reference Range Interpretation Comments MPV (test code = MPV) 8.5 7.4-10.4 [facility]TpkewwtGKTQYYODSJ5026-37-62 21:02:00 Test Item Value Reference Range Interpretation Comments WBC (test code = WBC) 7.9 3.7-10.4 [facility]PfohxmmNIJVMPMEKH0531-51-21 21:02:00 Test Item Value Reference Range Interpretation Comments RBC (test code = RBC) 4.78 4.20-5.40 [facility]2016-03-30 21:02:00 Test Item Value Reference Range Interpretation Comments B/C Ratio (test code = B/C Ratio) 9 6-25 [facility]2016-03-30 21:02:00 Test Item Value Reference Range Interpretation Comments A/G Ratio (test code = A/G Ratio) 1.2 0.7-1.6 [facility]2016-03-30 21:02:00 Test Item Value Reference Range Interpretation Comments Globulin (test code = Globulin) 3.7 2.0-4.0 [facility]2016-03-30 21:02:00 Test Item Value Reference Range Interpretation Comments AGAP (test code = AGAP) 15.1 10.0-20.0 [facility]2016-03-30 21:02:00 Test Item Value Reference Range Interpretation Comments eGFR (test code = eGFR) 33 [facility]2016-03-30 21:02:00 Test Item Value Reference Range Interpretation Comments ALT (test code = ALT) 24 See_Comment [Auto mated message] The system which ge nerated this result transmit yue reference range : <=65. The reference range was not used to interpr et this result as sera l/abnormal. [facility]2016-03-30 21:02:00 Test Item Value Reference Range Interpretation Comments AST (test code = AST) 38 See_Comment [Auto mated message] The system which ge nerated this result transmit yue reference range : <=37. The reference range was not used to interpr et this result as sera l/abnormal. [facility]2016-03-30 21:02:00 Test Item Value Reference Range Interpretation Comments Creatinine Lvl (test code = Creatinine 1.73 0.50-1.40 Lvl) [facility]2016-03-30 21:02:00 Test Item Value Reference Range Interpretation Comments Glucose Lvl (test code = Glucose Lvl) 104 70-99 [place] 702886-03-30 21:02:00 Test Item Value Reference Range Interpretation Comments BUN (test code = BUN) 15 7-22 [place] 702886-03-30 21:02:00 Test Item Value Reference Range Interpretation Comments Bili Total (test code = Bili Total) 0.3 0.2-1.3 [facility]2016-03-30 21:02:00 Test Item Value Reference Range Interpretation Comments Total Protein (test code = Total 8.0 6.4-8.4 Protein) [place] 702886-03-30 21:02:00 Test Item Value Reference Range Interpretation Comments Alk Phos (test code = Alk Phos) 83 39-136 [facility]2016-03-30 21:02:00 Test Item Value Reference Range Interpretation Comments Potassium Lvl (test code = Potassium 3.1 3.5-5.1 Lvl) [facility]2016-03-30 21:02:00 Test Item Value Reference Range Interpretation Comments Sodium Lvl (test code = Sodium Lvl) 143 135-145 [place] 702886-03-30 21:02:00 Test Item Value Reference Range Interpretation Comments CO2 (test code = CO2) 30 24-32 [facility]2016-03-30 21:02:00 Test Item Value Reference Range Interpretation Comments Chloride Lvl (test code = Chloride Lvl) 101 95-109 [facility]2016-03-30 21:02:00 Test Item Value Reference Range Interpretation Comments Calcium Lvl (test code = Calcium Lvl) 9.5 8.5-10.5 [facility]2016-03-30 21:02:00 Test Item Value Reference Range Interpretation Comments Albumin Lvl (test code = Albumin Lvl) 4.3 3.5-5.0 [facility]RzmazxdMFETEDQECY2473-53-61 21:02:00 Test Item Value Reference Range Interpretation Comments Monocytes # (test code 0.7 See_Comment [Aut omated message] The = Monocytes #) system which generated this result tra nsmitted reference range : <=0.8. The reference r xu was not used to int erpret this result as normal/abnormal . [facility]AsokqjuRGXPVMWYQE7793-80-82 21:02:00 Test Item Value Reference Range Interpretation Comments Eosinophils # (test code 0.0 See_Comment [A utomated message] The = Eosinophils #) system whic h generated this result tra nsmitted reference range : <=0.5. The reference r xu was not used to int erpret this result as normal/abnormal . [facility]BlmmnapERQBDFVPRY9043-09-78 21:02:00 Test Item Value Reference Range Interpretation Comments Lymphocytes (test code = Lymphocytes) 28.2 20.0-40.0 [facility]VllzzawRRWCWSDNIB9009-74-60 21:02:00 Test Item Value Reference Range Interpretation Comments Segs (test code = Segs) 62.2 45.0-75.0 [facility]XkisvukHVNYKAPNKC9421-51-37 21:02:00 Test Item Value Reference Range Interpretation Comments Monocytes (test code = Monocytes) 9.3 2.0-12.0 [place] 594266-03-30 21:02:00 Test Item Value Reference Range Interpretation Comments Lymphocytes # (test code = Lymphocytes 2.2 1.0-5.5 #) [facility]IfstggfYGCVFFGSDC2019-94-38 21:02:00 Test Item Value Reference Range Interpretation Comments Eosinophils (test code = 0.0 See_Comment [A utomated message] The Eosinophils) system which ge nerated this result tra nsmitted reference range : <=4.0. The reference r xu was not used to int erpret this result as normal/abnormal . [facility]ErnasrtVYAUJKHLBY8585-64-84 21:02:00 Test Item Value Reference Range Interpretation Comments Basophils (test code = 0.3 See_Comment [Aut omated message] The Basophils) system which ge nerated this result tra nsmitted reference range : <=1.0. The reference r xu was not used to int erpret this result as normal/abnormal . [facility]TpuylxvKIZYVIYSQM9389-46-34 21:02:00 Test Item Value Reference Range Interpretation Comments Segs-Bands # (test code = Segs-Bands #) 4.9 1.5-8.1 [facility]2016-03-30 21:02:00 Test Item Value Reference Range Interpretation Comments B/C Ratio (test code = B/C Ratio) 9 6-25 [facility]2016-03-30 21:02:00 Test Item Value Reference Range Interpretation Comments A/G Ratio (test code = A/G Ratio) 1.2 0.7-1.6 [facility]RutqnmhCNGOULSDYG1767-21-35 21:02:00 Test Item Value Reference Range Interpretation Comments Hgb (test code = Hgb) 13.4 12.0-16.0 [facility]2016-03-30 21:02:00 Test Item Value Reference Range Interpretation Comments Globulin (test code = Globulin) 3.7 2.0-4.0 [facility]2016-03-30 21:02:00 Test Item Value Reference Range Interpretation Comments AGAP (test code = AGAP) 15.1 10.0-20.0 [facility]2016-03-30 21:02:00 Test Item Value Reference Range Interpretation Comments eGFR (test code = eGFR) 33 [facility]2016-03-30 21:02:00 Test Item Value Reference Range Interpretation Comments ALT (test code = ALT) 24 See_Comment [Auto mated message] The system which ge nerated this result transmit yue reference range : <=65. The reference range was not used to interpr et this result as sera l/abnormal. [facility]2016-03-30 21:02:00 Test Item Value Reference Range Interpretation Comments AST (test code = AST) 38 See_Comment [Auto mated message] The system which ge nerated this result transmit yue reference range : <=37. The reference range was not used to interpr et this result as sera l/abnormal. [facility]2016-03-30 21:02:00 Test Item Value Reference Range Interpretation Comments Creatinine Lvl (test code = Creatinine 1.73 0.50-1.40 Lvl) [facility]2016-03-30 21:02:00 Test Item Value Reference Range Interpretation Comments Glucose Lvl (test code = Glucose Lvl) 104 70-99 [facility]2016-03-30 21:02:00 Test Item Value Reference Range Interpretation Comments BUN (test code = BUN) 15 7-22 [facility]2016-03-30 21:02:00 Test Item Value Reference Range Interpretation Comments Bili Total (test code = Bili Total) 0.3 0.2-1.3 [facility]2016-03-30 21:02:00 Test Item Value Reference Range Interpretation Comments Total Protein (test code = Total 8.0 6.4-8.4 Protein) [facility]VbzjbxcGYNFFPLVFP0704-37-47 21:02:00 Test Item Value Reference Range Interpretation Comments MCH (test code = MCH) 28.0 pg 27.0-31.0 [facility]2016-03-30 21:02:00 Test Item Value Reference Range Interpretation Comments Alk Phos (test code = Alk Phos) 83 39-136 [facility]2016-03-30 21:02:00 Test Item Value Reference Range Interpretation Comments Potassium Lvl (test code = Potassium 3.1 3.5-5.1 Lvl) [facility]2016-03-30 21:02:00 Test Item Value Reference Range Interpretation Comments Sodium Lvl (test code = Sodium Lvl) 143 135-145 [facility]2016-03-30 21:02:00 Test Item Value Reference Range Interpretation Comments CO2 (test code = CO2) 30 24-32 [facility]2016-03-30 21:02:00 Test Item Value Reference Range Interpretation Comments Chloride Lvl (test code = Chloride Lvl) 101 95-109 [facility] [id number] 21:02:00 Test Item Value Reference Range Interpretation Comments Calcium Lvl (test code = Calcium Lvl) 9.5 8.5-10.5 [facility] [id number] 21:02:00 Test Item Value Reference Range Interpretation Comments Albumin Lvl (test code = Albumin Lvl) 4.3 3.5-5.0 [facility]PsaawpsGYJGJZBDEQ9256-63-99 21:02:00 Test Item Value Reference Range Interpretation Comments Monocytes # (test code 0.7 See_Comment [Aut omated message] The = Monocytes #) system which generated this result tra nsmitted reference range : <=0.8. The reference r xu was not used to int erpret this result as normal/abnormal . [facility]GsiitecMZTTMUOWBM4152-10-40 21:02:00 Test Item Value Reference Range Interpretation Comments Eosinophils # (test code 0.0 See_Comment [A utomated message] The = Eosinophils #) system whic h generated this result tra nsmitted reference range : <=0.5. The reference r xu was not used to int erpret this result as normal/abnormal . [facility]NwaiijfBWTSYZISKD8341-67-96 21:02:00 Test Item Value Reference Range Interpretation Comments Lymphocytes (test code = Lymphocytes) 28.2 20.0-40.0 [facility]NrwvmcmURKEYHGHSX0551-15-23 21:02:00 Test Item Value Reference Range Interpretation Comments Hct (test code = Hct) 41.0 36.0-48.0 [facility]KolplmeWCSUBCDXXL0429-30-72 21:02:00 Test Item Value Reference Range Interpretation Comments Segs (test code = Segs) 62.2 45.0-75.0 [facility]LcztumjYSUXDBPTQB4156-89-95 21:02:00 Test Item Value Reference Range Interpretation Comments Monocytes (test code = Monocytes) 9.3 2.0-12.0 [facility]AuhqvgsWJZNUHPHCX7791-26-37 21:02:00 Test Item Value Reference Range Interpretation Comments Lymphocytes # (test code = Lymphocytes 2.2 1.0-5.5 #) [facility]HfyzvljVBSWUXFKBD3732-48-92 21:02:00 Test Item Value Reference Range Interpretation Comments Eosinophils (test code = 0.0 See_Comment [A utomated message] The Eosinophils) system which ge nerated this result tra nsmitted reference range : <=4.0. The reference r xu was not used to int erpret this result as normal/abnormal . [facility]UjcyuteZLBEIVLVET4339-63-31 21:02:00 Test Item Value Reference Range Interpretation Comments Basophils (test code = 0.3 See_Comment [Aut omated message] The Basophils) system which ge nerated this result tra nsmitted reference range : <=1.0. The reference r xu was not used to int erpret this result as normal/abnormal . [facility]WpzktckNPYUUEMCFN6474-31-30 21:02:00 Test Item Value Reference Range Interpretation Comments Segs-Bands # (test code = Segs-Bands #) 4.9 1.5-8.1 [facility]YafxeleMSZRSGTDQK1378-73-71 21:02:00 Test Item Value Reference Range Interpretation Comments Hgb (test code = Hgb) 13.4 12.0-16.0 [facility]YwxjhmqNWHAYXDXNF8422-94-42 21:02:00 Test Item Value Reference Range Interpretation Comments MCH (test code = MCH) 28.0 pg 27.0-31.0 [facility]AzkzpmbRWKJXFHLQP1070-16-98 21:02:00 Test Item Value Reference Range Interpretation Comments Hct (test code = Hct) 41.0 36.0-48.0 [facility]MbeedsaPTFMTMQGNJ5262-93-19 21:02:00 Test Item Value Reference Range Interpretation Comments MCV (test code = MCV) 85.6 80.0-98.0 [facility]NzstrwfDJMITZLCLV7326-95-62 21:02:00 Test Item Value Reference Range Interpretation Comments MCV (test code = MCV) 85.6 80.0-98.0 [facility]MwkjmgtCBVLFPXUBI6930-29-31 21:02:00 Test Item Value Reference Range Interpretation Comments RDW (test code = RDW) 13.6 11.5-14.5 [facility]LjxmxlzAOCQGPCYHG5301-16-49 21:02:00 Test Item Value Reference Range Interpretation Comments Platelet (test code = Platelet) 198 133-450 [facility]RrckgmsIVLLLOQNFT8408-54-89 21:02:00 Test Item Value Reference Range Interpretation Comments MCHC (test code = MCHC) 32.6 32.0-36.0 [facility]XwlwinuYQZTNYMNYQ1243-19-80 21:02:00 Test Item Value Reference Range Interpretation Comments MPV (test code = MPV) 8.5 7.4-10.4 [facility]IfgywcpBXUOASNRFO8164-72-32 21:02:00 Test Item Value Reference Range Interpretation Comments WBC (test code = WBC) 7.9 3.7-10.4 [facility]TsukvlyKEXDYVDIYT1268-21-99 21:02:00 Test Item Value Reference Range Interpretation Comments RBC (test code = RBC) 4.78 4.20-5.40 [facility]BpksjvuGUWRQGQSGG9417-32-64 21:02:00 Test Item Value Reference Range Interpretation Comments RDW (test code = RDW) 13.6 11.5-14.5 [facility]TdythqwBYVCAMNJKZ4197-90-39 21:02:00 Test Item Value Reference Range Interpretation Comments Platelet (test code = Platelet) 198 133-450 [facility]GfhzixlJZRVDIRGGE6738-77-98 21:02:00 Test Item Value Reference Range Interpretation Comments MCHC (test code = MCHC) 32.6 32.0-36.0 [facility]OmhbnwkBSMJXELJQV9139-67-30 21:02:00 Test Item Value Reference Range Interpretation Comments MPV (test code = MPV) 8.5 7.4-10.4 [facility]PxgxqxbPSRLTFJDUT8887-42-66 21:02:00 Test Item Value Reference Range Interpretation Comments WBC (test code = WBC) 7.9 3.7-10.4 [facility]GyyrgbkIEKZEBAYRF0456-50-06 21:02:00 Test Item Value Reference Range Interpretation Comments RBC (test code = RBC) 4.78 4.20-5.40 [facility]2016-03-30 21:02:00 Test Item Value Reference Range Interpretation Comments B/C Ratio (test code = B/C Ratio) 9 6-25 [facility] [id number] 21:02:00 Test Item Value Reference Range Interpretation Comments A/G Ratio (test code = A/G Ratio) 1.2 0.7-1.6 [facility] [id number] 21:02:00 Test Item Value Reference Range Interpretation Comments Globulin (test code = Globulin) 3.7 2.0-4.0 [facility]2016-03-30 21:02:00 Test Item Value Reference Range Interpretation Comments AGAP (test code = AGAP) 15.1 10.0-20.0 [facility]2016-03-30 21:02:00 Test Item Value Reference Range Interpretation Comments eGFR (test code = eGFR) 33 [facility]2016-03-30 21:02:00 Test Item Value Reference Range Interpretation Comments ALT (test code = ALT) 24 See_Comment [Auto mated message] The system which ge nerated this result transmit yue reference range : <=65. The reference range was not used to interpr et this result as sera l/abnormal. [place] 702886-03-30 21:02:00 Test Item Value Reference Range Interpretation Comments AST (test code = AST) 38 See_Comment [Auto mated message] The system which ge nerated this result transmit yue reference range : <=37. The reference range was not used to interpr et this result as srea l/abnormal. [facility]2016-03-30 21:02:00 Test Item Value Reference Range Interpretation Comments Creatinine Lvl (test code = Creatinine 1.73 0.50-1.40 Lvl) [facility]2016-03-30 21:02:00 Test Item Value Reference Range Interpretation Comments Glucose Lvl (test code = Glucose Lvl) 104 70-99 [facility]2016-03-30 21:02:00 Test Item Value Reference Range Interpretation Comments BUN (test code = BUN) 15 7-22 [facility]2016-03-30 21:02:00 Test Item Value Reference Range Interpretation Comments Bili Total (test code = Bili Total) 0.3 0.2-1.3 [facility]2016-03-30 21:02:00 Test Item Value Reference Range Interpretation Comments Total Protein (test code = Total 8.0 6.4-8.4 Protein) [facility]2016-03-30 21:02:00 Test Item Value Reference Range Interpretation Comments Alk Phos (test code = Alk Phos) 83 39-136 [facility]2016-03-30 21:02:00 Test Item Value Reference Range Interpretation Comments Potassium Lvl (test code = Potassium 3.1 3.5-5.1 Lvl) [facility]2016-03-30 21:02:00 Test Item Value Reference Range Interpretation Comments Sodium Lvl (test code = Sodium Lvl) 143 135-145 [facility]2016-03-30 21:02:00 Test Item Value Reference Range Interpretation Comments CO2 (test code = CO2) 30 24-32 [facility]2016-03-30 21:02:00 Test Item Value Reference Range Interpretation Comments Chloride Lvl (test code = Chloride Lvl) 101 95-109 [facility]2016-03-30 21:02:00 Test Item Value Reference Range Interpretation Comments Calcium Lvl (test code = Calcium Lvl) 9.5 8.5-10.5 [facility]2016-03-30 21:02:00 Test Item Value Reference Range Interpretation Comments Albumin Lvl (test code = Albumin Lvl) 4.3 3.5-5.0 [facility]LnznkcoSTYOAVBPYI7795-96-74 21:02:00 Test Item Value Reference Range Interpretation Comments Monocytes # (test code 0.7 See_Comment [Aut omated message] The = Monocytes #) system which generated this result tra nsmitted reference range : <=0.8. The reference r xu was not used to int erpret this result as normal/abnormal . [facility]KbjgkofBBDFYFFYRY3680-58-35 21:02:00 Test Item Value Reference Range Interpretation Comments Eosinophils # (test code 0.0 See_Comment [A utomated message] The = Eosinophils #) system whic h generated this result tra nsmitted reference range : <=0.5. The reference r xu was not used to int erpret this result as normal/abnormal . [facility]LbpqrumIPAHWYCTPC3511-84-69 21:02:00 Test Item Value Reference Range Interpretation Comments Lymphocytes (test code = Lymphocytes) 28.2 20.0-40.0 [facility]FvndlrtAFFCVVFGLN7984-44-37 21:02:00 Test Item Value Reference Range Interpretation Comments Segs (test code = Segs) 62.2 45.0-75.0 [facility]TehynpzMWUSLGPYFC7522-88-55 21:02:00 Test Item Value Reference Range Interpretation Comments Monocytes (test code = Monocytes) 9.3 2.0-12.0 [facility]VsedlzhTZKLGMRSKN1762-99-87 21:02:00 Test Item Value Reference Range Interpretation Comments Lymphocytes # (test code = Lymphocytes 2.2 1.0-5.5 #) [facility]KppmqjsXEWJXSWHWY0616-16-04 21:02:00 Test Item Value Reference Range Interpretation Comments Eosinophils (test code = 0.0 See_Comment [A utomated message] The Eosinophils) system which ge nerated this result tra nsmitted reference range : <=4.0. The reference r xu was not used to int erpret this result as normal/abnormal . [facility]LpjbqqyXIIVZLITSL1971-14-95 21:02:00 Test Item Value Reference Range Interpretation Comments Basophils (test code = 0.3 See_Comment [Aut omated message] The Basophils) system which ge nerated this result tra nsmitted reference range : <=1.0. The reference r xu was not used to int erpret this result as normal/abnormal . [facility]NysjwuzDZYSAOXBNP4268-12-31 21:02:00 Test Item Value Reference Range Interpretation Comments Segs-Bands # (test code = Segs-Bands #) 4.9 1.5-8.1 [facility]XbrpmrqYUFGSOTZWX4921-71-70 21:02:00 Test Item Value Reference Range Interpretation Comments Hgb (test code = Hgb) 13.4 12.0-16.0 [facility]KlupjcvHELODJAUTF7160-38-49 21:02:00 Test Item Value Reference Range Interpretation Comments MCH (test code = MCH) 28.0 pg 27.0-31.0 [facility]DcufpsvSBVFXJOYYT5446-10-24 21:02:00 Test Item Value Reference Range Interpretation Comments Hct (test code = Hct) 41.0 36.0-48.0 [facility]UukcsgtSPSECNWEKW4391-04-66 21:02:00 Test Item Value Reference Range Interpretation Comments MCV (test code = MCV) 85.6 80.0-98.0 [facility]AqnfofmCBQLFKGMKE1598-71-83 21:02:00 Test Item Value Reference Range Interpretation Comments RDW (test code = RDW) 13.6 11.5-14.5 [facility]VxaeufjADBUJYMNWH7134-41-62 21:02:00 Test Item Value Reference Range Interpretation Comments Platelet (test code = Platelet) 198 133-450 [facility]MmwgejvIRCFVZWDDE1167-99-83 21:02:00 Test Item Value Reference Range Interpretation Comments MCHC (test code = MCHC) 32.6 32.0-36.0 [facility]HrtgbxoXDHRBQXQHH9803-91-36 21:02:00 Test Item Value Reference Range Interpretation Comments MPV (test code = MPV) 8.5 7.4-10.4 [facility]JwignpjZSMVRLPPGT5973-21-22 21:02:00 Test Item Value Reference Range Interpretation Comments WBC (test code = WBC) 7.9 3.7-10.4 [facility]KvpmxqqKEIMGFFRGK4571-64-50 21:02:00 Test Item Value Reference Range Interpretation Comments RBC (test code = RBC) 4.78 4.20-5.40 [facility]2016-03-30 21:02:00 Test Item Value Reference Range Interpretation Comments B/C Ratio (test code = B/C Ratio) 9 6-25 [facility]2016-03-30 21:02:00 Test Item Value Reference Range Interpretation Comments A/G Ratio (test code = A/G Ratio) 1.2 0.7-1.6 [facility]2016-03-30 21:02:00 Test Item Value Reference Range Interpretation Comments Globulin (test code = Globulin) 3.7 2.0-4.0 [facility]2016-03-30 21:02:00 Test Item Value Reference Range Interpretation Comments AGAP (test code = AGAP) 15.1 10.0-20.0 [facility]2016-03-30 21:02:00 Test Item Value Reference Range Interpretation Comments eGFR (test code = eGFR) 33 [facility]2016-03-30 21:02:00 Test Item Value Reference Range Interpretation Comments ALT (test code = ALT) 24 See_Comment [Auto mated message] The system which ge nerated this result transmit yue reference range : <=65. The reference range was not used to interpr et this result as sera l/abnormal. [facility]2016-03-30 21:02:00 Test Item Value Reference Range Interpretation Comments AST (test code = AST) 38 See_Comment [Auto mated message] The system which ge nerated this result transmit yue reference range : <=37. The reference range was not used to interpr et this result as sera l/abnormal. [place] [address]-03-30 21:02:00 Test Item Value Reference Range Interpretation Comments Creatinine Lvl (test code = Creatinine 1.73 0.50-1.40 Lvl) [facility]2016-03-30 21:02:00 Test Item Value Reference Range Interpretation Comments Glucose Lvl (test code = Glucose Lvl) 104 70-99 [facility]2016-03-30 21:02:00 Test Item Value Reference Range Interpretation Comments BUN (test code = BUN) 15 7-22 [facility]2016-03-30 21:02:00 Test Item Value Reference Range Interpretation Comments Bili Total (test code = Bili Total) 0.3 0.2-1.3 [facility]2016-03-30 21:02:00 Test Item Value Reference Range Interpretation Comments Total Protein (test code = Total 8.0 6.4-8.4 Protein) [facility]2016-03-30 21:02:00 Test Item Value Reference Range Interpretation Comments Alk Phos (test code = Alk Phos) 83 39-136 [facility]2016-03-30 21:02:00 Test Item Value Reference Range Interpretation Comments Potassium Lvl (test code = Potassium 3.1 3.5-5.1 Lvl) [facility]2016-03-30 21:02:00 Test Item Value Reference Range Interpretation Comments Sodium Lvl (test code = Sodium Lvl) 143 135-145 [facility]2016-03-30 21:02:00 Test Item Value Reference Range Interpretation Comments CO2 (test code = CO2) 30 24-32 [facility]2016-03-30 21:02:00 Test Item Value Reference Range Interpretation Comments Chloride Lvl (test code = Chloride Lvl) 101 95-109 [facility]2016-03-30 21:02:00 Test Item Value Reference Range Interpretation Comments Calcium Lvl (test code = Calcium Lvl) 9.5 8.5-10.5 [facility]2016-03-30 21:02:00 Test Item Value Reference Range Interpretation Comments Albumin Lvl (test code = Albumin Lvl) 4.3 3.5-5.0 [facility] 21:02:00 Test Item Value Reference Range Interpretation Comments Monocytes # (test code 0.7 See_Comment [Aut omated message] The = Monocytes #) system which generated this result tra nsmitted reference range : <=0.8. The reference r xu was not used to int erpret this result as normal/abnormal . [facility]BI[facility]676[facility] 21:02:00 Test Item Value Reference Range Interpretation Comments Eosinophils # (test code 0.0 See_Comment [A utomated message] The = Eosinophils #) system whic h generated this result tra nsmitted reference range : <=0.5. The reference r xu was not used to int erpret this result as normal/abnormal . [facility]ApxgqlvOBPCSCYOQW5281-36-39 21:02:00 Test Item Value Reference Range Interpretation Comments Lymphocytes (test code = Lymphocytes) 28.2 20.0-40.0 [facility]JsxstzqJVYCMMJAMB9382-96-12 21:02:00 Test Item Value Reference Range Interpretation Comments Segs (test code = Segs) 62.2 45.0-75.0 [facility]ZurluclGQIDBXPSGR3413-68-26 21:02:00 Test Item Value Reference Range Interpretation Comments Monocytes (test code = Monocytes) 9.3 2.0-12.0 [facility]WigduonVAHUMQDHYK6182-21-50 21:02:00 Test Item Value Reference Range Interpretation Comments Lymphocytes # (test code = Lymphocytes 2.2 1.0-5.5 #) [facility]KtuaxjcFKWPFSZPLB2135-09-33 21:02:00 Test Item Value Reference Range Interpretation Comments Eosinophils (test code = 0.0 See_Comment [A utomated message] The Eosinophils) system which ge nerated this result tra nsmitted reference range : <=4.0. The reference r xu was not used to int erpret this result as normal/abnormal . [facility]TvnlehkNRIZGTQTTF7387-77-83 21:02:00 Test Item Value Reference Range Interpretation Comments Basophils (test code = 0.3 See_Comment [Aut omated message] The Basophils) system which ge nerated this result tra nsmitted reference range : <=1.0. The reference r xu was not used to int erpret this result as normal/abnormal . [facility]KgtdxheNCMRCUFNFM8173-04-46 21:02:00 Test Item Value Reference Range Interpretation Comments Segs-Bands # (test code = Segs-Bands #) 4.9 1.5-8.1 [facility]EokxhozFFMFIOEUNJ4927-57-82 21:02:00 Test Item Value Reference Range Interpretation Comments Hgb (test code = Hgb) 13.4 12.0-16.0 [facility]WtrcpdzNDPFCPKWMG6055-22-91 21:02:00 Test Item Value Reference Range Interpretation Comments MCH (test code = MCH) 28.0 pg 27.0-31.0 [facility]KlzkbbgAHMUCEVDFT0937-66-04 21:02:00 Test Item Value Reference Range Interpretation Comments Hct (test code = Hct) 41.0 36.0-48.0 [facility]RrsaozzBVEXOTVCOL5506-88-81 21:02:00 Test Item Value Reference Range Interpretation Comments MCV (test code = MCV) 85.6 80.0-98.0 [facility]IobjmthMYMPATFFWT6675-12-23 21:02:00 Test Item Value Reference Range Interpretation Comments RDW (test code = RDW) 13.6 11.5-14.5 [facility]DaqqxneVHGNGFVWXL6786-79-07 21:02:00 Test Item Value Reference Range Interpretation Comments Platelet (test code = Platelet) 198 133-450 [facility]FocfrawYCIBIOUDQK2269-07-32 21:02:00 Test Item Value Reference Range Interpretation Comments MCHC (test code = MCHC) 32.6 32.0-36.0 [facility]KsogmuwLHQMTHDUWQ0803-82-89 21:02:00 Test Item Value Reference Range Interpretation Comments MPV (test code = MPV) 8.5 7.4-10.4 [facility]RjbnilaBJTTMFJORD4698-98-57 21:02:00 Test Item Value Reference Range Interpretation Comments WBC (test code = WBC) 7.9 3.7-10.4 [facility]TqvfhwrMKEJGRGSGI0561-54-83 21:02:00 Test Item Value Reference Range Interpretation Comments RBC (test code = RBC) 4.78 4.20-5.40 [facility] [id number] 20:18:00 Test Item Value Reference Range Interpretation Comments CK MB (test code = CK MB) no gt 0.5-3.6 [facility] [id number] 20:18:00 Test Item Value Reference Range Interpretation Comments Total CK (test code = Total CK) 82 12-191 [facility] [employer] [id number] 20:18:00 Test Item Value Reference Range Interpretation Comments Troponin-I (test code no gt See_Comment [Auto mated message] The = Troponin-I) system which g enerated this result transmit yue reference range : <=0.40. The reference r xu was not used to interpr et this result as sera l/abnormal. [facility] [employer]2016-03-30 20:18:00 Test Item Value Reference Range Interpretation Comments CK MB (test code = CK MB) no gt 0.5-3.6 [facility] [employer] [id number] 20:18:00 Test Item Value Reference Range Interpretation Comments CK MB Index (test no gt See_Comment [Automate d message] The code = CK MB Index) system w [employer] generated this result transmit yue reference range : <=2.5. The reference range was not used to interpr et this result as sera l/abnormal. [facility] [employer]2016-03-30 20:18:00 Test Item Value Reference Range Interpretation Comments CK MB (test code = CK MB) no gt 0.5-3.6 [facility] [employer]2016-03-30 20:18:00 Test Item Value Reference Range Interpretation Comments Total CK (test code = Total CK) 82 191 [facility] 20:18:00 Test Item Value Reference Range Interpretation Comments Troponin-I (test code no gt See_Comment [Auto mated message] The = Troponin-I) system which g enerated this result transmit yue reference range : <=0.40. The reference r xu was not used to interpr et this result as sera l/abnormal. [facility] [employer]2016-03-30 20:18:00 Test Item Value Reference Range Interpretation Comments CK MB (test code = CK MB) no gt 0.5-3.6 [facility] [employer] [id number] 20:18:00 Test Item Value Reference Range Interpretation Comments CK MB Index (test no gt See_Comment [Automate d message] The code = CK MB Index) system w [employer] generated this result transmit yue reference range : <=2.5. The reference range was not used to interpr et this result as sera l/abnormal. [facility] [employer] [id number] 20:18:00 Test Item Value Reference Range Interpretation Comments CK MB (test code = CK MB) no gt 0.5-3.6 [facility] [employer] [id number] 20:18:00 Test Item Value Reference Range Interpretation Comments Total CK (test code = Total CK) 82 12-191 [facility] [id number] 20:18:00 Test Item Value Reference Range Interpretation Comments Troponin-I (test code no gt See_Comment [Auto mated message] The = Troponin-I) system which g enerated this result transmit yue reference range : <=0.40. The reference r xu was not used to interpr et this result as sera l/abnormal. [facility] [employer]2016-03-30 20:18:00 Test Item Value Reference Range Interpretation Comments CK MB (test code = CK MB) no gt 0.5-3.6 [facility] [employer]2016-03-30 20:18:00 Test Item Value Reference Range Interpretation Comments CK MB Index (test no gt See_Comment [Automate d message] The code = CK MB Index) system w [facility] generated this result transmit yue reference range : <=2.5. The reference range was not used to interpr et this result as sera l/abnormal. [facility] [employer]2016-03-30 20:18:00 Test Item Value Reference Range Interpretation Comments CK MB (test code = CK MB) no gt 0.5-3.6 [facility] [employer]2016-03-30 20:18:00 Test Item Value Reference Range Interpretation Comments Total CK (test code = Total CK) 82 12-191 [facility] [id number] 20:18:00 Test Item Value Reference Range Interpretation Comments Troponin-I (test code no gt See_Comment [Auto mated message] The = Troponin-I) system which g enerated this result transmit yue reference range : <=0.40. The reference r xu was not used to interpr et this result as sera l/abnormal. [facility] [employer] [id number] 20:18:00 Test Item Value Reference Range Interpretation Comments CK MB (test code = CK MB) no gt 0.5-3.6 [employer] [id number] 20:18:00 Test Item Value Reference Range Interpretation Comments CK MB Index (test no gt See_Comment [Automate d message] The code = CK MB Index) system w [employer] generated this result transmit yue reference range : <=2.5. The reference range was not used to interpr et this result as sera l/abnormal. [facility] [employer] [id number] 20:18:00 Test Item Value Reference Range Interpretation Comments CK MB (test code = CK MB) no gt 0.5-3.6 [facility] [employer] [id number] 20:18:00 Test Item Value Reference Range Interpretation Comments Total CK (test code = Total CK) 82 12-191 [facility] [employer] [id number] 20:18:00 Test Item Value Reference Range Interpretation Comments Troponin-I (test code no gt See_Comment [Auto mated message] The = Troponin-I) system which g enerated this result transmit yue reference range : <=0.40. The reference r xu was not used to interpr et this result as sera l/abnormal. [facility] [employer] [id number] 20:18:00 Test Item Value Reference Range Interpretation Comments CK MB (test code = CK MB) no gt 0.5-3.6 [facility] [employer] [id number] 20:18:00 Test Item Value Reference Range Interpretation Comments CK MB Index (test no gt See_Comment [Automate d message] The code = CK MB Index) system w [employer] generated this result transmit yue reference range : <=2.5. The reference range was not used to interpr et this result as sera l/abnormal. [employer] [id number] 20:18:00 Test Item Value Reference Range Interpretation Comments CK MB (test code = CK MB) no gt 0.5-3.6 [facility] [employer] [id number] 20:18:00 Test Item Value Reference Range Interpretation Comments Total CK (test code = Total CK) 82 12-191 [facility] [employer] [id number] 20:18:00 Test Item Value Reference Range Interpretation Comments Troponin-I (test code no gt See_Comment [Auto mated message] The = Troponin-I) system which g enerated this result transmit yue reference range : <=0.40. The reference r xu was not used to interpr et this result as sera l/abnormal. [employer]2016-03-30 20:18:00 Test Item Value Reference Range Interpretation Comments CK MB (test code = CK MB) no gt 0.5-3.6 [facility] [employer] [id number] 20:18:00 Test Item Value Reference Range Interpretation Comments CK MB Index (test no gt See_Comment [Automate d message] The code = CK MB Index) system w [employer] generated this result transmit yue reference range : <=2.5. The reference range was not used to interpr et this result as sera l/abnormal. [facility] [employer]2016-03-30 20:18:00 Test Item Value Reference Range Interpretation Comments CK MB (test code = CK MB) no gt 0.5-3.6 [facility] [employer] [id number] 20:18:00 Test Item Value Reference Range Interpretation Comments Total CK (test code = Total CK) 82 12-191 [facility] [employer]2016-03-30 20:18:00 Test Item Value Reference Range Interpretation Comments Troponin-I (test code no gt See_Comment [Auto mated message] The = Troponin-I) system which g enerated this result transmit yue reference range : <=0.40. The reference r xu was not used to interpr et this result as sera l/abnormal. [employer]2016-03-30 20:18:00 Test Item Value Reference Range Interpretation Comments CK MB (test code = CK MB) no gt 0.5-3.6 [facility] [employer]2016-03-30 20:18:00 Test Item Value Reference Range Interpretation Comments CK MB Index (test no gt See_Comment [Automate d message] The code = CK MB Index) system w [employer] generated this result transmit yue reference range : <=2.5. The reference range was not used to interpr et this result as sera l/abnormal. [employer]2016-03-30 20:18:00 Test Item Value Reference Range Interpretation Comments CK MB (test code = CK MB) no gt 0.5-3.6 [facility] [employer] [id number] 20:18:00 Test Item Value Reference Range Interpretation Comments Total CK (test code = Total CK) 82 12-191 [facility] [employer] [id number] 20:18:00 Test Item Value Reference Range Interpretation Comments Troponin-I (test code no gt See_Comment [Auto mated message] The = Troponin-I) system which g enerated this result transmit yue reference range : <=0.40. The reference r xu was not used to interpr et this result as sera l/abnormal. [facility] [employer]2016-03-30 20:18:00 Test Item Value Reference Range Interpretation Comments CK MB (test code = CK MB) no gt 0.5-3.6 [facility] [employer] [id number] 20:18:00 Test Item Value Reference Range Interpretation Comments CK MB Index (test no gt See_Comment [Automate d message] The code = CK MB Index) system w [facility] generated this result transmit yue reference range : <=2.5. The reference range was not used to interpr et this result as sera l/abnormal. [facility] [employer]2016-03-30 20:18:00 Test Item Value Reference Range Interpretation Comments CK MB (test code = CK MB) no gt 0.5-3.6 [facility] [employer]2016-03-30 20:18:00 Test Item Value Reference Range Interpretation Comments Total CK (test code = Total CK) 82 12-191 [facility] [employer] [id number] 20:18:00 Test Item Value Reference Range Interpretation Comments Troponin-I (test code no gt See_Comment [Auto mated message] The = Troponin-I) system which g enerated this result transmit yue reference range : <=0.40. The reference r xu was not used to interpr et this result as sera l/abnormal. [employer]2016-03-30 20:18:00 Test Item Value Reference Range Interpretation Comments CK MB (test code = CK MB) no gt 0.5-3.6 [employer] [id number] 20:18:00 Test Item Value Reference Range Interpretation Comments CK MB Index (test no gt See_Comment [Automate d message] The code = CK MB Index) system w [employer] generated this result transmit yue reference range : <=2.5. The reference range was not used to interpr et this result as sera l/abnormal. [facility] [employer]2016-02-27 22:18:00 Test Item Value Reference Range Interpretation Comments Troponin-I (test <0.015 ng/mL See_Comment [Automated message] The code = system which ge nerated Troponin-I) this result tra nsmitted reference range : <=0.40. The reference r xu was not used to int erpret this result as normal/abnormal . [facility] [employer]2016-02-27 22:18:00 Test Item Value Reference Range Interpretation Comments CK MB (test code = CK MB) <0.5 ng/mL 0.5-3.6 [facility] [employer]2016-02-27 22:18:00 Test Item Value Reference Range Interpretation Comments Total CK (test code = Total CK) 33 12-191 [facility] [employer]2016-02-27 22:18:00 Test Item Value Reference Range Interpretation Comments CK MB Index (test no gt See_Comment [Automate d message] The code = CK MB Index) system [employer] generated this result transmit yue reference range : <=2.5. The reference range was not used to interpr et this result as sera l/abnormal. [employer]2016-02-27 22:18:00 Test Item Value Reference Range Interpretation Comments eGFR (test code = eGFR) 43 [facility] [employer]2016-02-27 22:18:00 Test Item Value Reference Range Interpretation Comments AGAP (test code = AGAP) 14.1 10.0-20.0 [facility] [employer]2016-02-27 22:18:00 Test Item Value Reference Range Interpretation Comments Bili Total (test code = Bili Total) 0.5 0.2-1.3 [facility] [employer]2016-02-27 22:18:00 Test Item Value Reference Range Interpretation Comments B/C Ratio (test code = B/C Ratio) 12 6-25 [facility]2016-02-27 22:18:00 Test Item Value Reference Range Interpretation Comments Globulin (test code = Globulin) 4.0 2.0-4.0 [facility]2016-02-27 22:18:00 Test Item Value Reference Range Interpretation Comments A/G Ratio (test code = A/G Ratio) 1.0 0.7-1.6 [facility]2016-02-27 22:18:00 Test Item Value Reference Range Interpretation Comments Sodium Lvl (test code = Sodium Lvl) 139 135-145 [facility]2016-02-27 22:18:00 Test Item Value Reference Range Interpretation Comments Chloride Lvl (test code = Chloride Lvl) 102 95-109 [facility]2016-02-27 22:18:00 Test Item Value Reference Range Interpretation Comments Potassium Lvl (test code = Potassium 3.1 3.5-5.1 Lvl) [facility]2016-02-27 22:18:00 Test Item Value Reference Range Interpretation Comments Glucose Lvl (test code = Glucose Lvl) 112 70-99 [facility]2016-02-27 22:18:00 Test Item Value Reference Range Interpretation Comments Creatinine Lvl (test code = Creatinine 1.41 0.50-1.40 Lvl) [facility]2016-02-27 22:18:00 Test Item Value Reference Range Interpretation Comments BUN (test code = BUN) 17 7-22 [facility]2016-02-27 22:18:00 Test Item Value Reference Range Interpretation Comments Alk Phos (test code = Alk Phos) 78 39-136 [facility]2016-02-27 22:18:00 Test Item Value Reference Range Interpretation Comments Calcium Lvl (test code = Calcium Lvl) 9.4 8.5-10.5 [facility]2016-02-27 22:18:00 Test Item Value Reference Range Interpretation Comments CO2 (test code = CO2) 26 24-32 [facility]2016-02-27 22:18:00 Test Item Value Reference Range Interpretation Comments Total Protein (test code = Total 8.1 6.4-8.4 Protein) [facility]2016-02-27 22:18:00 Test Item Value Reference Range Interpretation Comments AST (test code = AST) 33 See_Comment [Auto mated message] The system which ge nerated this result transmit yue reference range : <=37. The reference range was not used to interpr et this result as sera l/abnormal. [facility]2016-02-27 22:18:00 Test Item Value Reference Range Interpretation Comments ALT (test code = ALT) 20 See_Comment [Auto mated message] The system which ge nerated this result transmit uye reference range : <=65. The reference range was not used to interpr et this result as sera l/abnormal. [facility]2016-02-27 22:18:00 Test Item Value Reference Range Interpretation Comments Albumin Lvl (test code = Albumin Lvl) 4.1 3.5-5.0 [id number] 22:18:00 Test Item Value Reference Range Interpretation Comments D-Dimer (test code = D-Dimer) 0.58 [facility]YdnlkvtCWGUEYBJXJ3984-19-84 22:18:00 Test Item Value Reference Range Interpretation Comments MPV (test code = MPV) 8.5 7.4-10.4 [place] 594266-02-27 22:18:00 Test Item Value Reference Range Interpretation Comments Platelet (test code = Platelet) 204 133-450 [facility]OkdacoeOKOZPPGXDT0938-81-48 22:18:00 Test Item Value Reference Range Interpretation Comments Hct (test code = Hct) 39.7 36.0-48.0 [facility]XbccftiEDJGGQZUCX6434-19-44 22:18:00 Test Item Value Reference Range Interpretation Comments WBC (test code = WBC) 6.2 3.7-10.4 [facility]XhvhdjzIDKVFXPYPW9035-39-29 22:18:00 Test Item Value Reference Range Interpretation Comments RBC (test code = RBC) 4.84 4.20-5.40 [place] 594266-02-27 22:18:00 Test Item Value Reference Range Interpretation Comments MCV (test code = MCV) 81.9 80.0-98.0 [place] 594266-02-27 22:18:00 Test Item Value Reference Range Interpretation Comments MCH (test code = MCH) 27.4 pg 27.0-31.0 [facility]GqcfktkXWRAWRQIGO2777-90-48 22:18:00 Test Item Value Reference Range Interpretation Comments MCHC (test code = MCHC) 33.5 32.0-36.0 [facility]DcbxwnqMWUPYMVSUE6610-18-84 22:18:00 Test Item Value Reference Range Interpretation Comments RDW (test code = RDW) 13.3 11.5-14.5 [facility]QvzmnbjEGSRHORCVW6766-21-97 22:18:00 Test Item Value Reference Range Interpretation Comments Hgb (test code = Hgb) 13.3 12.0-16.0 [facility]EddpovyNYDZELIQMB3604-76-54 22:18:00 Test Item Value Reference Range Interpretation Comments Lymphocytes # (test code = Lymphocytes 2.0 1.0-5.5 #) [facility]GkxopeiOWICHSDQHC4417-72-46 22:18:00 Test Item Value Reference Range Interpretation Comments Monocytes # (test code 0.7 See_Comment [Aut omated message] The = Monocytes #) system which generated this result tra nsmitted reference range : <=0.8. The reference r xu was not used to int erpret this result as normal/abnormal . [facility]EvytmtaWDMHANFCJD7676-45-09 22:18:00 Test Item Value Reference Range Interpretation Comments Segs (test code = Segs) 56.2 45.0-75.0 [facility]RqnnohnYZHWLWTMDX7691-75-55 22:18:00 Test Item Value Reference Range Interpretation Comments Lymphocytes (test code = Lymphocytes) 32.1 20.0-40.0 [facility]RthomvkGQDESHRADU9171-55-03 22:18:00 Test Item Value Reference Range Interpretation Comments Monocytes (test code = Monocytes) 11.5 2.0-12.0 [facility]TfgcnufAEKGZMYTQK7957-92-53 22:18:00 Test Item Value Reference Range Interpretation Comments Basophils (test code = 0.2 See_Comment [Aut omated message] The Basophils) system which ge nerated this result tra nsmitted reference range : <=1.0. The reference r xu was not used to int erpret this result as normal/abnormal . [facility]QjjxvkbIYWCRLKOYX1592-87-63 22:18:00 Test Item Value Reference Range Interpretation Comments Segs-Bands # (test code = Segs-Bands #) 3.5 1.5-8.1 [id number] 22:18:00 Test Item Value Reference Range Interpretation Comments Troponin-I (test <0.015 ng/mL See_Comment [Automated message] The code = system which ge nerated Troponin-I) this result tra nsmitted reference range : <=0.40. The reference r xu was not used to int erpret this result as normal/abnormal . [facility] [employer] [id number] 22:18:00 Test Item Value Reference Range Interpretation Comments CK MB (test code = CK MB) <0.5 ng/mL 0.5-3.6 [facility] [employer] [id number] 22:18:00 Test Item Value Reference Range Interpretation Comments Total CK (test code = Total CK) 33 12-191 [facility] 22:18:00 Test Item Value Reference Range Interpretation Comments CK MB Index (test no gt See_Comment [Automate d message] The code = CK MB Index) system [employer] generated this result transmit yue reference range : <=2.5. The reference range was not used to interpr et this result as sera l/abnormal. [facility] [employer]2016-02-27 22:18:00 Test Item Value Reference Range Interpretation Comments eGFR (test code = eGFR) 43 [facility] [employer]2016-02-27 22:18:00 Test Item Value Reference Range Interpretation Comments AGAP (test code = AGAP) 14.1 10.0-20.0 [facility] [employer]2016-02-27 22:18:00 Test Item Value Reference Range Interpretation Comments Bili Total (test code = Bili Total) 0.5 0.2-1.3 [facility] [employer]2016-02-27 22:18:00 Test Item Value Reference Range Interpretation Comments B/C Ratio (test code = B/C Ratio) 12 6-25 [facility]2016-02-27 22:18:00 Test Item Value Reference Range Interpretation Comments Globulin (test code = Globulin) 4.0 2.0-4.0 [facility]2016-02-27 22:18:00 Test Item Value Reference Range Interpretation Comments A/G Ratio (test code = A/G Ratio) 1.0 0.7-1.6 [facility]2016-02-27 22:18:00 Test Item Value Reference Range Interpretation Comments Sodium Lvl (test code = Sodium Lvl) 139 135-145 [facility]2016-02-27 22:18:00 Test Item Value Reference Range Interpretation Comments Chloride Lvl (test code = Chloride Lvl) 102 95-109 [facility]2016-02-27 22:18:00 Test Item Value Reference Range Interpretation Comments Potassium Lvl (test code = Potassium 3.1 3.5-5.1 Lvl) [facility]2016-02-27 22:18:00 Test Item Value Reference Range Interpretation Comments Glucose Lvl (test code = Glucose Lvl) 112 70-99 [facility]2016-02-27 22:18:00 Test Item Value Reference Range Interpretation Comments Creatinine Lvl (test code = Creatinine 1.41 0.50-1.40 Lvl) [facility]2016-02-27 22:18:00 Test Item Value Reference Range Interpretation Comments BUN (test code = BUN) 17 7-22 [facility]2016-02-27 22:18:00 Test Item Value Reference Range Interpretation Comments Alk Phos (test code = Alk Phos) 78 39-136 [facility]2016-02-27 22:18:00 Test Item Value Reference Range Interpretation Comments Calcium Lvl (test code = Calcium Lvl) 9.4 8.5-10.5 [facility]2016-02-27 22:18:00 Test Item Value Reference Range Interpretation Comments CO2 (test code = CO2) 26 24-32 [facility]2016-02-27 22:18:00 Test Item Value Reference Range Interpretation Comments Total Protein (test code = Total 8.1 6.4-8.4 Protein) [facility]2016-02-27 22:18:00 Test Item Value Reference Range Interpretation Comments AST (test code = AST) 33 See_Comment [Auto mated message] The system which ge nerated this result transmit yue reference range : <=37. The reference range was not used to interpr et this result as sera l/abnormal. [facility]2016-02-27 22:18:00 Test Item Value Reference Range Interpretation Comments ALT (test code = ALT) 20 See_Comment [Auto mated message] The system which ge nerated this result transmit yue reference range : <=65. The reference range was not used to interpr et this result as sera l/abnormal. [facility]2016-02-27 22:18:00 Test Item Value Reference Range Interpretation Comments Albumin Lvl (test code = Albumin Lvl) 4.1 3.5-5.0 [facility]us[facility]bnPWD[facility]EKB4292-76-96 22:18:00 Test Item Value Reference Range Interpretation Comments D-Dimer (test code = D-Dimer) 0.58 [facility]UccgqlsBJDRVXKQUT0303-37-36 22:18:00 Test Item Value Reference Range Interpretation Comments MPV (test code = MPV) 8.5 7.4-10.4 [facility]TubtarnDNIHVPTNLZ1588-97-94 22:18:00 Test Item Value Reference Range Interpretation Comments Platelet (test code = Platelet) 204 133-450 [facility]GdkabfjEFTEZOACOT7265-24-90 22:18:00 Test Item Value Reference Range Interpretation Comments Hct (test code = Hct) 39.7 36.0-48.0 [facility]FpbnfdpLPCQCYQADX8303-51-33 22:18:00 Test Item Value Reference Range Interpretation Comments WBC (test code = WBC) 6.2 3.7-10.4 [facility]ZmiyrsvEEHOQNQCFC8984-99-53 22:18:00 Test Item Value Reference Range Interpretation Comments RBC (test code = RBC) 4.84 4.20-5.40 [facility]KxmrlboOBTKYMVOFX0221-10-37 22:18:00 Test Item Value Reference Range Interpretation Comments MCV (test code = MCV) 81.9 80.0-98.0 [facility]DyhmxloSEXRAXMPFV2645-52-11 22:18:00 Test Item Value Reference Range Interpretation Comments MCH (test code = MCH) 27.4 pg 27.0-31.0 [facility]JjhrnelDQKGXKFUUQ6499-59-15 22:18:00 Test Item Value Reference Range Interpretation Comments MCHC (test code = MCHC) 33.5 32.0-36.0 [facility]DcsrvrqLMSNXNUSUZ1510-71-49 22:18:00 Test Item Value Reference Range Interpretation Comments RDW (test code = RDW) 13.3 11.5-14.5 [facility]KeiysmaNEPOKBYMVW8914-55-03 22:18:00 Test Item Value Reference Range Interpretation Comments Hgb (test code = Hgb) 13.3 12.0-16.0 [facility]ElpzcfiTALQGSEFJG9755-51-10 22:18:00 Test Item Value Reference Range Interpretation Comments Lymphocytes # (test code = Lymphocytes 2.0 1.0-5.5 #) [facility]KvjxnqxJBLTNQKEIX2080-82-58 22:18:00 Test Item Value Reference Range Interpretation Comments Monocytes # (test code 0.7 See_Comment [Aut omated message] The = Monocytes #) system which generated this result tra nsmitted reference range : <=0.8. The reference r xu was not used to int erpret this result as normal/abnormal . [facility]NknqaxvGPWFQTKIST3796-76-31 22:18:00 Test Item Value Reference Range Interpretation Comments Segs (test code = Segs) 56.2 45.0-75.0 [facility]WdufpbzDSWASXMKDC7002-13-46 22:18:00 Test Item Value Reference Range Interpretation Comments Lymphocytes (test code = Lymphocytes) 32.1 20.0-40.0 [facility]StoyebjVFXDYSMHZO5708-02-46 22:18:00 Test Item Value Reference Range Interpretation Comments Monocytes (test code = Monocytes) 11.5 2.0-12.0 [facility]XixkysiQOQRLXUIPQ5410-29-47 22:18:00 Test Item Value Reference Range Interpretation Comments Basophils (test code = 0.2 See_Comment [Aut omated message] The Basophils) system which ge nerated this result tra nsmitted reference range : <=1.0. The reference r xu was not used to int erpret this result as normal/abnormal . [facility]NwknrfvMPDGLCISGO2275-50-30 22:18:00 Test Item Value Reference Range Interpretation Comments Segs-Bands # (test code = Segs-Bands #) 3.5 1.5-8.1 [facility] [id number] 22:18:00 Test Item Value Reference Range Interpretation Comments Troponin-I (test <0.015 ng/mL See_Comment [Automated message] The code = system which ge nerated Troponin-I) this result tra nsmitted reference range : <=0.40. The reference r xu was not used to int erpret this result as normal/abnormal . [facility] HospitalCARNXVISIONAC [id number] 22:18:00 Test Item Value Reference Range Interpretation Comments CK MB (test code = CK MB) <0.5 ng/mL 0.5-3.6 [facility] SecurityCARNXVISIONAC [id number] 22:18:00 Test Item Value Reference Range Interpretation Comments Total CK (test code = Total CK) 33 12-191 [facility] CenterSpavistaCARNXVISIONAC [id number] 22:18:00 Test Item Value Reference Range Interpretation Comments CK MB Index (test no gt See_Comment [Automate d message] The code = CK MB Index) system w [facility] generated this result transmit yue reference range : <=2.5. The reference range was not used to interpr et this result as sera l/abnormal. [facility]2016-02-27 22:18:00 Test Item Value Reference Range Interpretation Comments eGFR (test code = eGFR) 43 [facility] [employer] [id number] 22:18:00 Test Item Value Reference Range Interpretation Comments AGAP (test code = AGAP) 14.1 10.0-20.0 [facility] [employer] [id number] 22:18:00 Test Item Value Reference Range Interpretation Comments Bili Total (test code = Bili Total) 0.5 0.2-1.3 [facility] [employer] [id number] 22:18:00 Test Item Value Reference Range Interpretation Comments B/C Ratio (test code = B/C Ratio) 12 6-25 [facility] [employer] [id number] 22:18:00 Test Item Value Reference Range Interpretation Comments Globulin (test code = Globulin) 4.0 2.0-4.0 [facility]2016-02-27 22:18:00 Test Item Value Reference Range Interpretation Comments A/G Ratio (test code = A/G Ratio) 1.0 0.7-1.6 [facility]2016-02-27 22:18:00 Test Item Value Reference Range Interpretation Comments Sodium Lvl (test code = Sodium Lvl) 139 135-145 [facility] [employer] [id number] 22:18:00 Test Item Value Reference Range Interpretation Comments Chloride Lvl (test code = Chloride Lvl) 102 95-109 [facility] [employer] [id number] 22:18:00 Test Item Value Reference Range Interpretation Comments Potassium Lvl (test code = Potassium 3.1 3.5-5.1 Lvl) [facility]2016-02-27 22:18:00 Test Item Value Reference Range Interpretation Comments Glucose Lvl (test code = Glucose Lvl) 112 70-99 [facility]2016-02-27 22:18:00 Test Item Value Reference Range Interpretation Comments Creatinine Lvl (test code = Creatinine 1.41 0.50-1.40 Lvl) [facility]2016-02-27 22:18:00 Test Item Value Reference Range Interpretation Comments BUN (test code = BUN) 17 7-22 [facility]2016-02-27 22:18:00 Test Item Value Reference Range Interpretation Comments Alk Phos (test code = Alk Phos) 78 39-136 [facility]2016-02-27 22:18:00 Test Item Value Reference Range Interpretation Comments Calcium Lvl (test code = Calcium Lvl) 9.4 8.5-10.5 [place] 702886-02-27 22:18:00 Test Item Value Reference Range Interpretation Comments CO2 (test code = CO2) 26 24-32 [facility]2016-02-27 22:18:00 Test Item Value Reference Range Interpretation Comments Total Protein (test code = Total 8.1 6.4-8.4 Protein) [facility]2016-02-27 22:18:00 Test Item Value Reference Range Interpretation Comments AST (test code = AST) 33 See_Comment [Auto mated message] The system which ge nerated this result transmit yue reference range : <=37. The reference range was not used to interpr et this result as sera l/abnormal. [facility]2016-02-27 22:18:00 Test Item Value Reference Range Interpretation Comments ALT (test code = ALT) 20 See_Comment [Auto mated message] The system which ge nerated this result transmit yue reference range : <=65. The reference range was not used to interpr et this result as sera l/abnormal. [facility]2016-02-27 22:18:00 Test Item Value Reference Range Interpretation Comments Albumin Lvl (test code = Albumin Lvl) 4.1 3.5-5.0 [facility]WjfqsfkDOIAMPZKBZ4165-39-17 22:18:00 Test Item Value Reference Range Interpretation Comments D-Dimer (test code = D-Dimer) 0.58 [facility]EcgolfwMEZLFHUIJA1999-89-74 22:18:00 Test Item Value Reference Range Interpretation Comments MPV (test code = MPV) 8.5 7.4-10.4 [facility]JwtgcsvSHKNZEDSGI2996-86-33 22:18:00 Test Item Value Reference Range Interpretation Comments Platelet (test code = Platelet) 204 133-450 [facility]MmrauerCDITXKJPZN6227-91-72 22:18:00 Test Item Value Reference Range Interpretation Comments Hct (test code = Hct) 39.7 36.0-48.0 [place] 594266-02-27 22:18:00 Test Item Value Reference Range Interpretation Comments WBC (test code = WBC) 6.2 3.7-10.4 [facility]OwcxetgKGKAIBVALG1116-75-61 22:18:00 Test Item Value Reference Range Interpretation Comments RBC (test code = RBC) 4.84 4.20-5.40 [facility]UfqlduvNVPHYXPBIU9212-31-81 22:18:00 Test Item Value Reference Range Interpretation Comments MCV (test code = MCV) 81.9 80.0-98.0 [facility]NcdfedwVWTAQUNBEG4874-54-36 22:18:00 Test Item Value Reference Range Interpretation Comments MCH (test code = MCH) 27.4 pg 27.0-31.0 [facility]XgyhmcvZHXJNNAPKQ0093-25-17 22:18:00 Test Item Value Reference Range Interpretation Comments MCHC (test code = MCHC) 33.5 32.0-36.0 [facility]RhqbdftSRVQHMVSXZ0287-49-23 22:18:00 Test Item Value Reference Range Interpretation Comments RDW (test code = RDW) 13.3 11.5-14.5 [facility]DqbmytoQTBRXPLAPH6659-76-77 22:18:00 Test Item Value Reference Range Interpretation Comments Hgb (test code = Hgb) 13.3 12.0-16.0 [facility]MnpinjyXDASOMFOLJ8937-58-46 22:18:00 Test Item Value Reference Range Interpretation Comments Lymphocytes # (test code = Lymphocytes 2.0 1.0-5.5 #) [facility]AuubezlCIAXSPSECK5671-04-64 22:18:00 Test Item Value Reference Range Interpretation Comments Monocytes # (test code 0.7 See_Comment [Aut omated message] The = Monocytes #) system which generated this result tra nsmitted reference range : <=0.8. The reference r xu was not used to int erpret this result as normal/abnormal . [facility] HospitalTmgdhlrNNGBBIHADO5974-41-35 22:18:00 Test Item Value Reference Range Interpretation Comments Segs (test code = Segs) 56.2 45.0-75.0 [facility] CenterGvdvhvqDMUHUHDBVX0387-94-75 22:18:00 Test Item Value Reference Range Interpretation Comments Lymphocytes (test code = Lymphocytes) 32.1 20.0-40.0 [facility] CenterUdicalrOEOYIAIKUW0610-90-20 22:18:00 Test Item Value Reference Range Interpretation Comments Monocytes (test code = Monocytes) 11.5 2.0-12.0 [facility]JizvdinORORFKVCAK5465-54-78 22:18:00 Test Item Value Reference Range Interpretation Comments Basophils (test code = 0.2 See_Comment [Aut omated message] The Basophils) system which ge nerated this result tra nsmitted reference range : <=1.0. The reference r xu was not used to int erpret this result as normal/abnormal . [facility] HospitalHbwvmacFEVHPAHMLS2041-05-65 22:18:00 Test Item Value Reference Range Interpretation Comments Segs-Bands # (test code = Segs-Bands #) 3.5 1.5-8.1 [facility] HospitalKloud AngelsMJSDJNC2865-59-24 22:18:00 Test Item Value Reference Range Interpretation Comments Troponin-I (test <0.015 ng/mL See_Comment [Automated message] The code = system which ge nerated Troponin-I) this result tra nsmitted reference range : <=0.40. The reference r ux was not used to int erpret this result as normal/abnormal . [facility] CenterSpavistaCARDIAC [id number] 22:18:00 Test Item Value Reference Range Interpretation Comments CK MB (test code = CK MB) <0.5 ng/mL 0.5-3.6 [facility] TTNGQEL4540-04-82 22:18:00 Test Item Value Reference Range Interpretation Comments Total CK (test code = Total CK) 33 12-191 [facility] CenterSpavistaCARVardhman Textiles DLKPKCZ8541-64-68 22:18:00 Test Item Value Reference Range Interpretation Comments CK MB Index (test no gt See_Comment [Automate d message] The code = CK MB Index) system w [facility] generated this result transmit yue reference range : <=2.5. The reference range was not used to interpr et this result as sera l/abnormal. [facility]2016-02-27 22:18:00 Test Item Value Reference Range Interpretation Comments eGFR (test code = eGFR) 43 [facility]2016-02-27 22:18:00 Test Item Value Reference Range Interpretation Comments AGAP (test code = AGAP) 14.1 10.0-20.0 [facility]2016-02-27 22:18:00 Test Item Value Reference Range Interpretation Comments Bili Total (test code = Bili Total) 0.5 0.2-1.3 [facility]2016-02-27 22:18:00 Test Item Value Reference Range Interpretation Comments B/C Ratio (test code = B/C Ratio) 12 6-25 [facility]2016-02-27 22:18:00 Test Item Value Reference Range Interpretation Comments Globulin (test code = Globulin) 4.0 2.0-4.0 [facility]2016-02-27 22:18:00 Test Item Value Reference Range Interpretation Comments A/G Ratio (test code = A/G Ratio) 1.0 0.7-1.6 [facility]2016-02-27 22:18:00 Test Item Value Reference Range Interpretation Comments Sodium Lvl (test code = Sodium Lvl) 139 135-145 [facility]2016-02-27 22:18:00 Test Item Value Reference Range Interpretation Comments Chloride Lvl (test code = Chloride Lvl) 102 95-109 [facility]2016-02-27 22:18:00 Test Item Value Reference Range Interpretation Comments Potassium Lvl (test code = Potassium 3.1 3.5-5.1 Lvl) [facility]2016-02-27 22:18:00 Test Item Value Reference Range Interpretation Comments Glucose Lvl (test code = Glucose Lvl) 112 70-99 [facility]2016-02-27 22:18:00 Test Item Value Reference Range Interpretation Comments Creatinine Lvl (test code = Creatinine 1.41 0.50-1.40 Lvl) [place] 702886-02-27 22:18:00 Test Item Value Reference Range Interpretation Comments BUN (test code = BUN) 17 7-22 [facility]2016-02-27 22:18:00 Test Item Value Reference Range Interpretation Comments Alk Phos (test code = Alk Phos) 78 39-136 [place] 702886-02-27 22:18:00 Test Item Value Reference Range Interpretation Comments Calcium Lvl (test code = Calcium Lvl) 9.4 8.5-10.5 [place] 702886-02-27 22:18:00 Test Item Value Reference Range Interpretation Comments CO2 (test code = CO2) 26 24-32 [place] 702886-02-27 22:18:00 Test Item Value Reference Range Interpretation Comments Total Protein (test code = Total 8.1 6.4-8.4 Protein) [facility]2016-02-27 22:18:00 Test Item Value Reference Range Interpretation Comments AST (test code = AST) 33 See_Comment [Auto mated message] The system which ge nerated this result transmit yue reference range : <=37. The reference range was not used to interpr et this result as sera l/abnormal. [place] 702886-02-27 22:18:00 Test Item Value Reference Range Interpretation Comments ALT (test code = ALT) 20 See_Comment [Auto mated message] The system which ge nerated this result transmit yue reference range : <=65. The reference range was not used to interpr et this result as esra l/abnormal. [facility]2016-02-27 22:18:00 Test Item Value Reference Range Interpretation Comments Albumin Lvl (test code = Albumin Lvl) 4.1 3.5-5.0 [place] 594266-02-27 22:18:00 Test Item Value Reference Range Interpretation Comments D-Dimer (test code = D-Dimer) 0.58 [place] 594266-02-27 22:18:00 Test Item Value Reference Range Interpretation Comments MPV (test code = MPV) 8.5 7.4-10.4 [facility]MjyitgeONWSEYQEDF3378-51-58 22:18:00 Test Item Value Reference Range Interpretation Comments Platelet (test code = Platelet) 204 133-450 [address]02-27 22:18:00 Test Item Value Reference Range Interpretation Comments Hct (test code = Hct) 39.7 36.0-48.0 [facility]AlxgvqvHDZQOSWSKI5079-90-33 22:18:00 Test Item Value Reference Range Interpretation Comments WBC (test code = WBC) 6.2 3.7-10.4 [facility]HicrapeICWJDHPYOJ8378-28-33 22:18:00 Test Item Value Reference Range Interpretation Comments RBC (test code = RBC) 4.84 4.20-5.40 [facility]YqsmzglNZCZSUDOXZ8245-55-31 22:18:00 Test Item Value Reference Range Interpretation Comments MCV (test code = MCV) 81.9 80.0-98.0 [facility]XihbqzwZQVNQDVFAC8114-32-87 22:18:00 Test Item Value Reference Range Interpretation Comments MCH (test code = MCH) 27.4 pg 27.0-31.0 [facility]TfxchosMSIKWBZIUF6751-11-61 22:18:00 Test Item Value Reference Range Interpretation Comments MCHC (test code = MCHC) 33.5 32.0-36.0 [facility]TjxkdwjHPYFTADPBY8356-90-92 22:18:00 Test Item Value Reference Range Interpretation Comments RDW (test code = RDW) 13.3 11.5-14.5 [facility]AtrfkpcHNWDLNIVTX4403-34-73 22:18:00 Test Item Value Reference Range Interpretation Comments Hgb (test code = Hgb) 13.3 12.0-16.0 [facility]IumkojbUZTKFYTIQI8421-34-10 22:18:00 Test Item Value Reference Range Interpretation Comments Lymphocytes # (test code = Lymphocytes 2.0 1.0-5.5 #) [facility]ZvrhfxbSMVKLLFWJN0242-16-35 22:18:00 Test Item Value Reference Range Interpretation Comments Monocytes # (test code 0.7 See_Comment [Aut omated message] The = Monocytes #) system which generated this result tra nsmitted reference range : <=0.8. The reference r xu was not used to int erpret this result as normal/abnormal . [place] 594266-02-27 22:18:00 Test Item Value Reference Range Interpretation Comments Segs (test code = Segs) 56.2 45.0-75.0 [facility]YfzwbveAZUDLRVBNL0970-94-76 22:18:00 Test Item Value Reference Range Interpretation Comments Lymphocytes (test code = Lymphocytes) 32.1 20.0-40.0 [facility] CenterNyrqbmbJQJREXXINO3444-82-15 22:18:00 Test Item Value Reference Range Interpretation Comments Monocytes (test code = Monocytes) 11.5 2.0-12.0 [facility] CenterWqnhvynFBRRUFUQIN0868-99-67 22:18:00 Test Item Value Reference Range Interpretation Comments Basophils (test code = 0.2 See_Comment [Aut omated message] The Basophils) system which ge nerated this result tra nsmitted reference range : <=1.0. The reference r xu was not used to int erpret this result as normal/abnormal . [facility] CenterZcaryayNZNWFAIONE3114-17-91 22:18:00 Test Item Value Reference Range Interpretation Comments Segs-Bands # (test code = Segs-Bands #) 3.5 1.5-8.1 [facility] CenterSpavistaCARNXVISIONAC [id number] 22:18:00 Test Item Value Reference Range Interpretation Comments Troponin-I (test <0.015 ng/mL See_Comment [Automated message] The code = system which ge nerated Troponin-I) this result tra nsmitted reference range : <=0.40. The reference r xu was not used to int erpret this result as normal/abnormal . [facility] CenterSpavistaCARDIAC PKLLAVJ7559-78-39 22:18:00 Test Item Value Reference Range Interpretation Comments CK MB (test code = CK MB) <0.5 ng/mL 0.5-3.6 [facility] CenterMirador BiomedicalAC [id number] 22:18:00 Test Item Value Reference Range Interpretation Comments Total CK (test code = Total CK) 33 12-191 [facility] HospitalCARNXVISIONAC [id number] 22:18:00 Test Item Value Reference Range Interpretation Comments CK MB Index (test no gt See_Comment [Automate d message] The code = CK MB Index) system w [facility] generated this result transmit yue reference range : <=2.5. The reference range was not used to interpr et this result as sera l/abnormal. [facility] [employer] [id number] 22:18:00 Test Item Value Reference Range Interpretation Comments eGFR (test code = eGFR) 43 [facility] CenterNuHabitat ZBNLN4482-88-03 22:18:00 Test Item Value Reference Range Interpretation Comments AGAP (test code = AGAP) 14.1 10.0-20.0 [facility]2016-02-27 22:18:00 Test Item Value Reference Range Interpretation Comments Bili Total (test code = Bili Total) 0.5 0.2-1.3 [facility]2016-02-27 22:18:00 Test Item Value Reference Range Interpretation Comments B/C Ratio (test code = B/C Ratio) 12 6-25 [facility]2016-02-27 22:18:00 Test Item Value Reference Range Interpretation Comments Globulin (test code = Globulin) 4.0 2.0-4.0 [facility]2016-02-27 22:18:00 Test Item Value Reference Range Interpretation Comments A/G Ratio (test code = A/G Ratio) 1.0 0.7-1.6 [facility]2016-02-27 22:18:00 Test Item Value Reference Range Interpretation Comments Sodium Lvl (test code = Sodium Lvl) 139 135-145 [facility]2016-02-27 22:18:00 Test Item Value Reference Range Interpretation Comments Chloride Lvl (test code = Chloride Lvl) 102 95-109 [facility]2016-02-27 22:18:00 Test Item Value Reference Range Interpretation Comments Potassium Lvl (test code = Potassium 3.1 3.5-5.1 Lvl) [facility]2016-02-27 22:18:00 Test Item Value Reference Range Interpretation Comments Glucose Lvl (test code = Glucose Lvl) 112 70-99 [facility]2016-02-27 22:18:00 Test Item Value Reference Range Interpretation Comments Creatinine Lvl (test code = Creatinine 1.41 0.50-1.40 Lvl) [facility]2016-02-27 22:18:00 Test Item Value Reference Range Interpretation Comments BUN (test code = BUN) 17 7- [facility]2016-02-27 22:18:00 Test Item Value Reference Range Interpretation Comments Alk Phos (test code = Alk Phos) 78 39-136 [facility]2016-02-27 22:18:00 Test Item Value Reference Range Interpretation Comments Calcium Lvl (test code = Calcium Lvl) 9.4 8.5-10.5 [facility]2016-02-27 22:18:00 Test Item Value Reference Range Interpretation Comments CO2 (test code = CO2) 26 24-32 [facility]2016-02-27 22:18:00 Test Item Value Reference Range Interpretation Comments Total Protein (test code = Total 8.1 6.4-8.4 Protein) [facility]2016-02-27 22:18:00 Test Item Value Reference Range Interpretation Comments AST (test code = AST) 33 See_Comment [Auto mated message] The system which ge nerated this result transmit yue reference range : <=37. The reference range was not used to interpr et this result as sera l/abnormal. [place] 702886-02-27 22:18:00 Test Item Value Reference Range Interpretation Comments ALT (test code = ALT) 20 See_Comment [Auto mated message] The system which ge nerated this result transmit yue reference range : <=65. The reference range was not used to interpr et this result as sera l/abnormal. [facility]2016-02-27 22:18:00 Test Item Value Reference Range Interpretation Comments Albumin Lvl (test code = Albumin Lvl) 4.1 3.5-5.0 [facility]NB[facility]80[facility]-05 22:18:00 Test Item Value Reference Range Interpretation Comments D-Dimer (test code = D-Dimer) 0.58 [place] [address]-02-27 22:18:00 Test Item Value Reference Range Interpretation Comments MPV (test code = MPV) 8.5 7.4-10.4 [place] 594266-02-27 22:18:00 Test Item Value Reference Range Interpretation Comments Platelet (test code = Platelet) 204 133-450 [facility]CoqalipBXJAPMRKFH8457-76-83 22:18:00 Test Item Value Reference Range Interpretation Comments Hct (test code = Hct) 39.7 36.0-48.0 [place] [address]-02-27 22:18:00 Test Item Value Reference Range Interpretation Comments WBC (test code = WBC) 6.2 3.7-10.4 [place] 594266-02-27 22:18:00 Test Item Value Reference Range Interpretation Comments RBC (test code = RBC) 4.84 4.20-5.40 [facility]UbapkmrBINTCYQYYG2527-08-55 22:18:00 Test Item Value Reference Range Interpretation Comments MCV (test code = MCV) 81.9 80.0-98.0 [place] 594266-02-27 22:18:00 Test Item Value Reference Range Interpretation Comments MCH (test code = MCH) 27.4 pg 27.0-31.0 [facility]UnislaaWNIAUAAUKW0623-16-97 22:18:00 Test Item Value Reference Range Interpretation Comments MCHC (test code = MCHC) 33.5 32.0-36.0 [facility]GsekeuqZWEMQTNZSO3619-55-51 22:18:00 Test Item Value Reference Range Interpretation Comments RDW (test code = RDW) 13.3 11.5-14.5 [place] 594266-02-27 22:18:00 Test Item Value Reference Range Interpretation Comments Hgb (test code = Hgb) 13.3 12.0-16.0 [facility]AmgivxfNEBIHMBQWE3851-82-53 22:18:00 Test Item Value Reference Range Interpretation Comments Lymphocytes # (test code = Lymphocytes 2.0 1.0-5.5 #) [facility]ZpsahxpYPEOILJXQS5017-83-38 22:18:00 Test Item Value Reference Range Interpretation Comments Monocytes # (test code 0.7 See_Comment [Aut omated message] The = Monocytes #) system which generated this result tra nsmitted reference range : <=0.8. The reference r xu was not used to int erpret this result as normal/abnormal . [facility]EwycjzwCIDPVQZCLP7326-12-71 22:18:00 Test Item Value Reference Range Interpretation Comments Segs (test code = Segs) 56.2 45.0-75.0 [facility]YmtuhdcBDZQKVCAIP2631-83-74 22:18:00 Test Item Value Reference Range Interpretation Comments Lymphocytes (test code = Lymphocytes) 32.1 20.0-40.0 [facility]FpnwftlCHRSXPLVYQ9510-37-39 22:18:00 Test Item Value Reference Range Interpretation Comments Monocytes (test code = Monocytes) 11.5 2.0-12.0 [facility]VlkkkbkSFUTTPOQPT5342-22-55 22:18:00 Test Item Value Reference Range Interpretation Comments Basophils (test code = 0.2 See_Comment [Aut omated message] The Basophils) system which ge nerated this result tra nsmitted reference range : <=1.0. The reference r xu was not used to int erpret this result as normal/abnormal . [facility] OvvcoorKPYAXEAPFH2313-45-97 22:18:00 Test Item Value Reference Range Interpretation Comments Segs-Bands # (test code = Segs-Bands #) 3.5 1.5-8.1 [facility] [employer] [id number] 22:18:00 Test Item Value Reference Range Interpretation Comments Troponin-I (test <0.015 ng/mL See_Comment [Automated message] The code = system which ge nerated Troponin-I) this result tra nsmitted reference range : <=0.40. The reference r xu was not used to int erpret this result as normal/abnormal . [facility] [employer] [id number] 22:18:00 Test Item Value Reference Range Interpretation Comments CK MB (test code = CK MB) <0.5 ng/mL 0.5-3.6 [facility] [id number] 22:18:00 Test Item Value Reference Range Interpretation Comments Total CK (test code = Total CK) 33 12-191 [facility] [id number] 22:18:00 Test Item Value Reference Range Interpretation Comments CK MB Index (test no gt See_Comment [Automate d message] The code = CK MB Index) system w [facility] generated this result transmit yue reference range : <=2.5. The reference range was not used to interpr et this result as sera l/abnormal. [facility] [employer] [id number] 22:18:00 Test Item Value Reference Range Interpretation Comments eGFR (test code = eGFR) 43 [facility] [employer] [id number] 22:18:00 Test Item Value Reference Range Interpretation Comments AGAP (test code = AGAP) 14.1 10.0-20.0 [facility] [employer] [id number] 22:18:00 Test Item Value Reference Range Interpretation Comments Bili Total (test code = Bili Total) 0.5 0.2-1.3 [facility] [employer] [id number] 22:18:00 Test Item Value Reference Range Interpretation Comments B/C Ratio (test code = B/C Ratio) 12 6-25 [facility]2016-02-27 22:18:00 Test Item Value Reference Range Interpretation Comments Globulin (test code = Globulin) 4.0 2.0-4.0 [facility]2016-02-27 22:18:00 Test Item Value Reference Range Interpretation Comments A/G Ratio (test code = A/G Ratio) 1.0 0.7-1.6 [facility]2016-02-27 22:18:00 Test Item Value Reference Range Interpretation Comments Sodium Lvl (test code = Sodium Lvl) 139 135-145 [facility]2016-02-27 22:18:00 Test Item Value Reference Range Interpretation Comments Chloride Lvl (test code = Chloride Lvl) 102 95-109 [facility]2016-02-27 22:18:00 Test Item Value Reference Range Interpretation Comments Potassium Lvl (test code = Potassium 3.1 3.5-5.1 Lvl) [facility]2016-02-27 22:18:00 Test Item Value Reference Range Interpretation Comments Glucose Lvl (test code = Glucose Lvl) 112 70-99 [facility]2016-02-27 22:18:00 Test Item Value Reference Range Interpretation Comments Creatinine Lvl (test code = Creatinine 1.41 0.50-1.40 Lvl) [facility]2016-02-27 22:18:00 Test Item Value Reference Range Interpretation Comments BUN (test code = BUN) 17 7-22 [facility]2016-02-27 22:18:00 Test Item Value Reference Range Interpretation Comments Alk Phos (test code = Alk Phos) 78 39-136 [facility]2016-02-27 22:18:00 Test Item Value Reference Range Interpretation Comments Calcium Lvl (test code = Calcium Lvl) 9.4 8.5-10.5 [facility]2016-02-27 22:18:00 Test Item Value Reference Range Interpretation Comments CO2 (test code = CO2) 26 24-32 [facility]2016-02-27 22:18:00 Test Item Value Reference Range Interpretation Comments Total Protein (test code = Total 8.1 6.4-8.4 Protein) [facility]2016-02-27 22:18:00 Test Item Value Reference Range Interpretation Comments AST (test code = AST) 33 See_Comment [Auto mated message] The system which ge nerated this result transmit yue reference range : <=37. The reference range was not used to interpr et this result as sera l/abnormal. [facility]2016-02-27 22:18:00 Test Item Value Reference Range Interpretation Comments ALT (test code = ALT) 20 See_Comment [Auto mated message] The system which ge nerated this result transmit yue reference range : <=65. The reference range was not used to interpr et this result as sera l/abnormal. [facility]2016-02-27 22:18:00 Test Item Value Reference Range Interpretation Comments Albumin Lvl (test code = Albumin Lvl) 4.1 3.5-5.0 [place] 594266-02-27 22:18:00 Test Item Value Reference Range Interpretation Comments D-Dimer (test code = D-Dimer) 0.58 [place] [address]-02-27 22:18:00 Test Item Value Reference Range Interpretation Comments MPV (test code = MPV) 8.5 7.4-10.4 [place] 594266-02-27 22:18:00 Test Item Value Reference Range Interpretation Comments Platelet (test code = Platelet) 204 133-450 [facility]QcggzxrNODPTPIVMK1491-52-95 22:18:00 Test Item Value Reference Range Interpretation Comments Hct (test code = Hct) 39.7 36.0-48.0 [place] [address]-02-27 22:18:00 Test Item Value Reference Range Interpretation Comments WBC (test code = WBC) 6.2 3.7-10.4 [place] [address]-02-27 22:18:00 Test Item Value Reference Range Interpretation Comments RBC (test code = RBC) 4.84 4.20-5.40 [place] [address]-02-27 22:18:00 Test Item Value Reference Range Interpretation Comments MCV (test code = MCV) 81.9 80.0-98.0 [place] [address]-02-27 22:18:00 Test Item Value Reference Range Interpretation Comments MCH (test code = MCH) 27.4 pg 27.0-31.0 [facility]DryqzydLEFEZNNFYQ7793-70-07 22:18:00 Test Item Value Reference Range Interpretation Comments MCHC (test code = MCHC) 33.5 32.0-36.0 [facility]ZewfuqlYEZSDSNBDK6583-85-74 22:18:00 Test Item Value Reference Range Interpretation Comments RDW (test code = RDW) 13.3 11.5-14.5 [facility]SvxlwllSWKGDZIHJW1130-05-37 22:18:00 Test Item Value Reference Range Interpretation Comments Hgb (test code = Hgb) 13.3 12.0-16.0 [facility]BizljuqSLUBUPPXPI0641-47-51 22:18:00 Test Item Value Reference Range Interpretation Comments Lymphocytes # (test code = Lymphocytes 2.0 1.0-5.5 #) [facility]RimlnfjGPOSKMBBBH6267-09-06 22:18:00 Test Item Value Reference Range Interpretation Comments Monocytes # (test code 0.7 See_Comment [Aut omated message] The = Monocytes #) system which generated this result tra nsmitted reference range : <=0.8. The reference r xu was not used to int erpret this result as normal/abnormal . [facility]QklgedaTZFVGOIEZN0918-77-60 22:18:00 Test Item Value Reference Range Interpretation Comments Segs (test code = Segs) 56.2 45.0-75.0 [facility]FixwpquAEHSPPBLEQ0272-83-98 22:18:00 Test Item Value Reference Range Interpretation Comments Lymphocytes (test code = Lymphocytes) 32.1 20.0-40.0 [facility]NtqctodDAWBBCIPPI5186-58-22 22:18:00 Test Item Value Reference Range Interpretation Comments Monocytes (test code = Monocytes) 11.5 2.0-12.0 [facility]DfuxmzvGPOXXYKZZX7181-31-20 22:18:00 Test Item Value Reference Range Interpretation Comments Basophils (test code = 0.2 See_Comment [Aut omated message] The Basophils) system which ge nerated this result tra nsmitted reference range : <=1.0. The reference r xu was not used to int erpret this result as normal/abnormal . [facility]VolvfqzHDBCAXHKET3965-93-40 22:18:00 Test Item Value Reference Range Interpretation Comments Segs-Bands # (test code = Segs-Bands #) 3.5 1.5-8.1 [facility] [id number] 22:18:00 Test Item Value Reference Range Interpretation Comments Troponin-I (test <0.015 ng/mL See_Comment [Automated message] The code = system which ge nerated Troponin-I) this result tra nsmitted reference range : <=0.40. The reference r xu was not used to int erpret this result as normal/abnormal . [facility] [employer] [id number] 22:18:00 Test Item Value Reference Range Interpretation Comments CK MB (test code = CK MB) <0.5 ng/mL 0.5-3.6 [facility] [employer] QFFAHNI2619-15-18 22:18:00 Test Item Value Reference Range Interpretation Comments Total CK (test code = Total CK) 33 12-191 [facility] [employer] [id number] 22:18:00 Test Item Value Reference Range Interpretation Comments CK MB Index (test no gt See_Comment [Automate d message] The code = CK MB Index) system w [facility] generated this result transmit yue reference range : <=2.5. The reference range was not used to interpr et this result as sera l/abnormal. [employer] [id number] 22:18:00 Test Item Value Reference Range Interpretation Comments eGFR (test code = eGFR) 43 [facility] [employer] [id number] 22:18:00 Test Item Value Reference Range Interpretation Comments AGAP (test code = AGAP) 14.1 10.0-20.0 [facility] [employer] [id number] 22:18:00 Test Item Value Reference Range Interpretation Comments Bili Total (test code = Bili Total) 0.5 0.2-1.3 [facility] [employer] [id number] 22:18:00 Test Item Value Reference Range Interpretation Comments B/C Ratio (test code = B/C Ratio) 12 6-25 [facility] [employer] [id number] 22:18:00 Test Item Value Reference Range Interpretation Comments Globulin (test code = Globulin) 4.0 2.0-4.0 [facility] [employer] [id number] 22:18:00 Test Item Value Reference Range Interpretation Comments A/G Ratio (test code = A/G Ratio) 1.0 0.7-1.6 [facility]2016-02-27 22:18:00 Test Item Value Reference Range Interpretation Comments Sodium Lvl (test code = Sodium Lvl) 139 135-145 [facility]2016-02-27 22:18:00 Test Item Value Reference Range Interpretation Comments Chloride Lvl (test code = Chloride Lvl) 102 95-109 [facility]2016-02-27 22:18:00 Test Item Value Reference Range Interpretation Comments Potassium Lvl (test code = Potassium 3.1 3.5-5.1 Lvl) [facility]2016-02-27 22:18:00 Test Item Value Reference Range Interpretation Comments Glucose Lvl (test code = Glucose Lvl) 112 70-99 [facility]2016-02-27 22:18:00 Test Item Value Reference Range Interpretation Comments Creatinine Lvl (test code = Creatinine 1.41 0.50-1.40 Lvl) [facility]2016-02-27 22:18:00 Test Item Value Reference Range Interpretation Comments BUN (test code = BUN) 17 7-22 [facility]2016-02-27 22:18:00 Test Item Value Reference Range Interpretation Comments Alk Phos (test code = Alk Phos) 78 39-136 [facility]2016-02-27 22:18:00 Test Item Value Reference Range Interpretation Comments Calcium Lvl (test code = Calcium Lvl) 9.4 8.5-10.5 [facility]2016-02-27 22:18:00 Test Item Value Reference Range Interpretation Comments CO2 (test code = CO2) 26 24-32 [facility]2016-02-27 22:18:00 Test Item Value Reference Range Interpretation Comments Total Protein (test code = Total 8.1 6.4-8.4 Protein) [facility]2016-02-27 22:18:00 Test Item Value Reference Range Interpretation Comments AST (test code = AST) 33 See_Comment [Auto mated message] The system which ge nerated this result transmit yue reference range : <=37. The reference range was not used to interpr et this result as sera l/abnormal. [facility]2016-02-27 22:18:00 Test Item Value Reference Range Interpretation Comments ALT (test code = ALT) 20 See_Comment [Auto mated message] The system which ge nerated this result transmit yue reference range : <=65. The reference range was not used to interpr et this result as sera l/abnormal. [facility]2016-02-27 22:18:00 Test Item Value Reference Range Interpretation Comments Albumin Lvl (test code = Albumin Lvl) 4.1 3.5-5.0 [facility]EbgygajNAZQBDWJKX9936-12-04 22:18:00 Test Item Value Reference Range Interpretation Comments D-Dimer (test code = D-Dimer) 0.58 [facility]TfbukftVPHBCRAVML2969-30-25 22:18:00 Test Item Value Reference Range Interpretation Comments MPV (test code = MPV) 8.5 7.4-10.4 [facility]TvooqwpLHXOILKJYT4381-31-29 22:18:00 Test Item Value Reference Range Interpretation Comments Platelet (test code = Platelet) 204 133-450 [facility]LzzddhdBGQXPRQSGA7082-97-36 22:18:00 Test Item Value Reference Range Interpretation Comments Hct (test code = Hct) 39.7 36.0-48.0 [facility]RfhgdqeUBFBQMOXDA9321-99-34 22:18:00 Test Item Value Reference Range Interpretation Comments WBC (test code = WBC) 6.2 3.7-10.4 [facility]ZqmxerrGRUPWWJYJW4599-87-48 22:18:00 Test Item Value Reference Range Interpretation Comments RBC (test code = RBC) 4.84 4.20-5.40 [facility]LfyxwesRRDVHZBDPR6001-83-51 22:18:00 Test Item Value Reference Range Interpretation Comments MCV (test code = MCV) 81.9 80.0-98.0 [facility]AwqlkqnDRIGFIBMYF0839-57-42 22:18:00 Test Item Value Reference Range Interpretation Comments MCH (test code = MCH) 27.4 pg 27.0-31.0 [facility]EwfoqhsVQGYOLXYQC4274-36-78 22:18:00 Test Item Value Reference Range Interpretation Comments MCHC (test code = MCHC) 33.5 32.0-36.0 [facility]QehjqvjIXVYVGUFSE4193-18-88 22:18:00 Test Item Value Reference Range Interpretation Comments RDW (test code = RDW) 13.3 11.5-14.5 [address]02-27 22:18:00 Test Item Value Reference Range Interpretation Comments Hgb (test code = Hgb) 13.3 12.0-16.0 [facility]WlykszsAJOXAFNDFV6438-78-11 22:18:00 Test Item Value Reference Range Interpretation Comments Lymphocytes # (test code = Lymphocytes 2.0 1.0-5.5 #) [facility]ZekzkhaSHOQYMQIBZ8250-40-16 22:18:00 Test Item Value Reference Range Interpretation Comments Monocytes # (test code 0.7 See_Comment [Aut omated message] The = Monocytes #) system which generated this result tra nsmitted reference range : <=0.8. The reference r ux was not used to int erpret this result as normal/abnormal . [facility]BefgjlqMLDPXNLHNM1895-37-79 22:18:00 Test Item Value Reference Range Interpretation Comments Segs (test code = Segs) 56.2 45.0-75.0 [facility]OkrzbygYTHCOJFPPC7407-16-72 22:18:00 Test Item Value Reference Range Interpretation Comments Lymphocytes (test code = Lymphocytes) 32.1 20.0-40.0 [facility]KtcjziuSZZKEBHFYM3642-06-34 22:18:00 Test Item Value Reference Range Interpretation Comments Monocytes (test code = Monocytes) 11.5 2.0-12.0 [facility]PhzthilPGQAUJNNLW3689-94-40 22:18:00 Test Item Value Reference Range Interpretation Comments Basophils (test code = 0.2 See_Comment [Aut omated message] The Basophils) system which ge nerated this result tra nsmitted reference range : <=1.0. The reference r ux was not used to int erpret this result as normal/abnormal . [facility]VybfmljJPOXJKJFVG3265-72-20 22:18:00 Test Item Value Reference Range Interpretation Comments Segs-Bands # (test code = Segs-Bands #) 3.5 1.5-8.1 [facility]DIPROM[facility]ITALMWKOEFY8732-40-79 22:18:00 Test Item Value Reference Range Interpretation Comments Troponin-I (test <0.015 ng/mL See_Comment [Automated message] The code = system which ge nerated Troponin-I) this result tra nsmitted reference range : <=0.40. The reference r xu was not used to int erpret this result as normal/abnormal . [facility] RPGMYKC3640-[facility] 22:18:00 Test Item Value Reference Range Interpretation Comments CK MB (test code = CK MB) <0.5 ng/mL 0.5-3.6 [facility] CenterMirador BiomedicalAC [id number] 22:18:00 Test Item Value Reference Range Interpretation Comments Total CK (test code = Total CK) 33 12-191 [facility] CenterSpavistaCARVardhman Textiles [id number] 22:18:00 Test Item Value Reference Range Interpretation Comments CK MB Index (test no gt See_Comment [Automate d message] The code = CK MB Index) system w [employer] generated this result transmit yue reference range : <=2.5. The reference range was not used to interpr et this result as sera l/abnormal. [facility] [employer] [id number] 22:18:00 Test Item Value Reference Range Interpretation Comments eGFR (test code = eGFR) 43 [facility] [employer] [id number] 22:18:00 Test Item Value Reference Range Interpretation Comments AGAP (test code = AGAP) 14.1 10.0-20.0 [facility] [employer] [id number] 22:18:00 Test Item Value Reference Range Interpretation Comments Bili Total (test code = Bili Total) 0.5 0.2-1.3 [facility] [employer] [id number] 22:18:00 Test Item Value Reference Range Interpretation Comments B/C Ratio (test code = B/C Ratio) 12 6-25 [facility] [employer] [id number] 22:18:00 Test Item Value Reference Range Interpretation Comments Globulin (test code = Globulin) 4.0 2.0-4.0 [facility] [employer] [id number] 22:18:00 Test Item Value Reference Range Interpretation Comments A/G Ratio (test code = A/G Ratio) 1.0 0.7-1.6 [facility] [employer] [id number] 22:18:00 Test Item Value Reference Range Interpretation Comments Sodium Lvl (test code = Sodium Lvl) 139 135-145 [facility] [employer] [id number] 22:18:00 Test Item Value Reference Range Interpretation Comments Chloride Lvl (test code = Chloride Lvl) 102 95-109 [facility] [employer] [id number] 22:18:00 Test Item Value Reference Range Interpretation Comments Potassium Lvl (test code = Potassium 3.1 3.5-5.1 Lvl) [place] 702886-02-27 22:18:00 Test Item Value Reference Range Interpretation Comments Glucose Lvl (test code = Glucose Lvl) 112 70-99 [place] 702886-02-27 22:18:00 Test Item Value Reference Range Interpretation Comments Creatinine Lvl (test code = Creatinine 1.41 0.50-1.40 Lvl) [place] 702886-02-27 22:18:00 Test Item Value Reference Range Interpretation Comments BUN (test code = BUN) 17 7-22 [place] [address]-02-27 22:18:00 Test Item Value Reference Range Interpretation Comments Alk Phos (test code = Alk Phos) 78 39-136 [place] 702886-02-27 22:18:00 Test Item Value Reference Range Interpretation Comments Calcium Lvl (test code = Calcium Lvl) 9.4 8.5-10.5 [place] 702886-02-27 22:18:00 Test Item Value Reference Range Interpretation Comments CO2 (test code = CO2) 26 24-32 [place] 702886-02-27 22:18:00 Test Item Value Reference Range Interpretation Comments Total Protein (test code = Total 8.1 6.4-8.4 Protein) [place] 702886-02-27 22:18:00 Test Item Value Reference Range Interpretation Comments AST (test code = AST) 33 See_Comment [Auto mated message] The system which ge nerated this result transmit yue reference range : <=37. The reference range was not used to interpr et this result as sera l/abnormal. [place] 702886-02-27 22:18:00 Test Item Value Reference Range Interpretation Comments ALT (test code = ALT) 20 See_Comment [Auto mated message] The system which ge nerated this result transmit yue reference range : <=65. The reference range was not used to interpr et this result as sera l/abnormal. [place] 702886-02-27 22:18:00 Test Item Value Reference Range Interpretation Comments Albumin Lvl (test code = Albumin Lvl) 4.1 3.5-5.0 [facility]QzpiyalYCJEJUDBGR8284-62-94 22:18:00 Test Item Value Reference Range Interpretation Comments D-Dimer (test code = D-Dimer) 0.58 [facility]TflvwctPJSFNDAECM9621-77-35 22:18:00 Test Item Value Reference Range Interpretation Comments MPV (test code = MPV) 8.5 7.4-10.4 [place] 594266-02-27 22:18:00 Test Item Value Reference Range Interpretation Comments Platelet (test code = Platelet) 204 133-450 [facility]JuiqsjnLHPKUQDHKY9145-15-32 22:18:00 Test Item Value Reference Range Interpretation Comments Hct (test code = Hct) 39.7 36.0-48.0 [facility]MbnekzqKUVOTPUWDK2789-43-46 22:18:00 Test Item Value Reference Range Interpretation Comments WBC (test code = WBC) 6.2 3.7-10.4 [facility]PgyettqTTPIMWWLPG8257-62-98 22:18:00 Test Item Value Reference Range Interpretation Comments RBC (test code = RBC) 4.84 4.20-5.40 [facility]TxpioqtSTROFEAOCI3471-28-43 22:18:00 Test Item Value Reference Range Interpretation Comments MCV (test code = MCV) 81.9 80.0-98.0 [facility]AubpahfMIWNHNMXSB5852-81-93 22:18:00 Test Item Value Reference Range Interpretation Comments MCH (test code = MCH) 27.4 pg 27.0-31.0 [facility]OyuqnvkNEVNHQVPJJ2755-84-36 22:18:00 Test Item Value Reference Range Interpretation Comments MCHC (test code = MCHC) 33.5 32.0-36.0 [facility]NrzveumZKHTMDGVKZ6435-22-98 22:18:00 Test Item Value Reference Range Interpretation Comments RDW (test code = RDW) 13.3 11.5-14.5 [facility]FroviswXRZAVOTWWN3644-82-57 22:18:00 Test Item Value Reference Range Interpretation Comments Hgb (test code = Hgb) 13.3 12.0-16.0 [facility]NlyfamnWNEBEQXUBI6614-15-41 22:18:00 Test Item Value Reference Range Interpretation Comments Lymphocytes # (test code = Lymphocytes 2.0 1.0-5.5 #) [facility]zvsbnwCBQPAEBYUT0886-71-16 22:18:00 Test Item Value Reference Range Interpretation Comments Monocytes # (test code 0.7 See_Comment [Aut omated message] The = Monocytes #) system which generated this result tra nsmitted reference range : <=0.8. The reference r xu was not used to int erpret this result as normal/abnormal . [facility]LxvqxkrGKEWZISZGH7791-45-42 22:18:00 Test Item Value Reference Range Interpretation Comments Segs (test code = Segs) 56.2 45.0-75.0 [facility] CenterMapavjjNGJLBABQYN6385-35-11 22:18:00 Test Item Value Reference Range Interpretation Comments Lymphocytes (test code = Lymphocytes) 32.1 20.0-40.0 [facility] CenterEiugjpmTEILVLHRTD4443-71-24 22:18:00 Test Item Value Reference Range Interpretation Comments Monocytes (test code = Monocytes) 11.5 2.0-12.0 [facility] CenterXjbgimwJENNFDNYPP3946-92-25 22:18:00 Test Item Value Reference Range Interpretation Comments Basophils (test code = 0.2 See_Comment [Aut omated message] The Basophils) system which ge nerated this result tra nsmitted reference range : <=1.0. The reference r xu was not used to int erpret this result as normal/abnormal . [facility] CenterCwjwijnYPANTRRJLB9073-05-70 22:18:00 Test Item Value Reference Range Interpretation Comments Segs-Bands # (test code = Segs-Bands #) 3.5 1.5-8.1 [facility] CenterJ[facility] [place]2016-02-27 22:18:00 Test Item Value Reference Range Interpretation Comments Troponin-I (test <0.015 ng/mL See_Comment [Automated message] The code = system which ge nerated Troponin-I) this result tra nsmitted reference range : <=0.40. The reference r xu was not used to int erpret this result as normal/abnormal . [facility] CenterSpavistaCARDIAC [id number] 22:18:00 Test Item Value Reference Range Interpretation Comments CK MB (test code = CK MB) <0.5 ng/mL 0.5-3.6 [facility] CenterMirador BiomedicalAC [id number] 22:18:00 Test Item Value Reference Range Interpretation Comments Total CK (test code = Total CK) 33 12-191 [facility] HermannCARDIAC [id number] 22:18:00 Test Item Value Reference Range Interpretation Comments CK MB Index (test no gt See_Comment [Automate d message] The code = CK MB Index) system w [facility] generated this result transmit yue reference range : <=2.5. The reference range was not used to interpr et this result as sera l/abnormal. [facility] [employer] [id number] 22:18:00 Test Item Value Reference Range Interpretation Comments eGFR (test code = eGFR) 43 [facility] CenterNu[facility] [id number] 22:18:00 Test Item Value Reference Range Interpretation Comments AGAP (test code = AGAP) 14.1 10.0-20.0 [facility] [id number] 22:18:00 Test Item Value Reference Range Interpretation Comments Bili Total (test code = Bili Total) 0.5 0.2-1.3 [facility] [id number] 22:18:00 Test Item Value Reference Range Interpretation Comments B/C Ratio (test code = B/C Ratio) 12 6-25 [facility] [id number] 22:18:00 Test Item Value Reference Range Interpretation Comments Globulin (test code = Globulin) 4.0 2.0-4.0 [facility] [id number] 22:18:00 Test Item Value Reference Range Interpretation Comments A/G Ratio (test code = A/G Ratio) 1.0 0.7-1.6 [facility] [id number] 22:18:00 Test Item Value Reference Range Interpretation Comments Sodium Lvl (test code = Sodium Lvl) 139 135-145 [facility] [id number] 22:18:00 Test Item Value Reference Range Interpretation Comments Chloride Lvl (test code = Chloride Lvl) 102 95-109 [facility] [employer] [id number] 22:18:00 Test Item Value Reference Range Interpretation Comments Potassium Lvl (test code = Potassium 3.1 3.5-5.1 Lvl) [facility] [id number] 22:18:00 Test Item Value Reference Range Interpretation Comments Glucose Lvl (test code = Glucose Lvl) 112 70-99 [facility] [id number] 22:18:00 Test Item Value Reference Range Interpretation Comments Creatinine Lvl (test code = Creatinine 1.41 0.50-1.40 Lvl) [facility]2016-02-27 22:18:00 Test Item Value Reference Range Interpretation Comments BUN (test code = BUN) 17 7-22 [place] [id number] 22:18:00 Test Item Value Reference Range Interpretation Comments Alk Phos (test code = Alk Phos) 78 39-136 [facility]2016-02-27 22:18:00 Test Item Value Reference Range Interpretation Comments Calcium Lvl (test code = Calcium Lvl) 9.4 8.5-10.5 [place] [id number] 22:18:00 Test Item Value Reference Range Interpretation Comments CO2 (test code = CO2) 26 24-32 [place] [id number] 22:18:00 Test Item Value Reference Range Interpretation Comments Total Protein (test code = Total 8.1 6.4-8.4 Protein) [facility]2016-02-27 22:18:00 Test Item Value Reference Range Interpretation Comments AST (test code = AST) 33 See_Comment [Auto mated message] The system which ge nerated this result transmit yue reference range : <=37. The reference range was not used to interpr et this result as sera l/abnormal. [facility]2016-02-27 22:18:00 Test Item Value Reference Range Interpretation Comments ALT (test code = ALT) 20 See_Comment [Auto mated message] The system which ge nerated this result transmit yue reference range : <=65. The reference range was not used to interpr et this result as sera l/abnormal. [facility]2016-02-27 22:18:00 Test Item Value Reference Range Interpretation Comments Albumin Lvl (test code = Albumin Lvl) 4.1 3.5-5.0 [facility]JkmerrfTVLPUJZAYA5152-94-78 22:18:00 Test Item Value Reference Range Interpretation Comments D-Dimer (test code = D-Dimer) 0.58 [place] [address]-02-27 22:18:00 Test Item Value Reference Range Interpretation Comments MPV (test code = MPV) 8.5 7.4-10.4 [place] 594266-02-27 22:18:00 Test Item Value Reference Range Interpretation Comments Platelet (test code = Platelet) 204 133-450 [facility]CfyscghPBABFKIGQH7272-95-12 22:18:00 Test Item Value Reference Range Interpretation Comments Hct (test code = Hct) 39.7 36.0-48.0 [place] 594266-02-27 22:18:00 Test Item Value Reference Range Interpretation Comments WBC (test code = WBC) 6.2 3.7-10.4 [facility]BljbacuFALXDMBFTV5524-21-29 22:18:00 Test Item Value Reference Range Interpretation Comments RBC (test code = RBC) 4.84 4.20-5.40 [facility]HveojkxDNWWPQFFFR3796-68-53 22:18:00 Test Item Value Reference Range Interpretation Comments MCV (test code = MCV) 81.9 80.0-98.0 [facility]KdlwxxwULHAPXWNTL9282-04-16 22:18:00 Test Item Value Reference Range Interpretation Comments MCH (test code = MCH) 27.4 pg 27.0-31.0 [facility]EczevwmDXHFBSUIRB9885-70-22 22:18:00 Test Item Value Reference Range Interpretation Comments MCHC (test code = MCHC) 33.5 32.0-36.0 [facility]JuivyoxUOEJGHFHRX4137-11-30 22:18:00 Test Item Value Reference Range Interpretation Comments RDW (test code = RDW) 13.3 11.5-14.5 [facility]HealthGlpmqhlKMBGOGGOND1023-79-79 22:18:00 Test Item Value Reference Range Interpretation Comments Hgb (test code = Hgb) 13.3 12.0-16.0 [facility]JpswevuUVEJELCLCM3274-11-60 22:18:00 Test Item Value Reference Range Interpretation Comments Lymphocytes # (test code = Lymphocytes 2.0 1.0-5.5 #) [facility]SylbxvvGAXMKUWTYP1057-52-23 22:18:00 Test Item Value Reference Range Interpretation Comments Monocytes # (test code 0.7 See_Comment [Aut omated message] The = Monocytes #) system which generated this result tra nsmitted reference range : <=0.8. The reference r xu was not used to int erpret this result as normal/abnormal . [facility]SjofpznNCMFZJLCZQ0438-05-58 22:18:00 Test Item Value Reference Range Interpretation Comments Segs (test code = Segs) 56.2 45.0-75.0 [facility] CenterYewrofdCYBUEYNSSP8956-32-74 22:18:00 Test Item Value Reference Range Interpretation Comments Lymphocytes (test code = Lymphocytes) 32.1 20.0-40.0 [facility]YikrcjkTGVWVGKPYQ3475-17-73 22:18:00 Test Item Value Reference Range Interpretation Comments Monocytes (test code = Monocytes) 11.5 2.0-12.0 [facility]zocCKXYDKHOFT5090-96-16 22:18:00 Test Item Value Reference Range Interpretation Comments Basophils (test code = 0.2 See_Comment [Aut omated message] The Basophils) system which ge nerated this result tra nsmitted reference range : <=1.0. The reference r xu was not used to int erpret this result as normal/abnormal . [facility] HospitalLeekndyCYNZVZQIUJ1143-49-43 22:18:00 Test Item Value Reference Range Interpretation Comments Segs-Bands # (test code = Segs-Bands #) 3.5 1.5-8.1 [facility] CenterJ[facility] [place]2016-02-12 19:00:00 Test Item Value Reference Range Interpretation Comments CK MB Index (test no gt See_Comment [Automate d message] The code = CK MB Index) system w [facility] generated this result transmit yue reference range : <=2.5. The reference range was not used to interpr et this result as sera l/abnormal. [facility] [place]2016-02-12 19:00:00 Test Item Value Reference Range Interpretation Comments Troponin-I (test code no gt See_Comment [Auto mated message] The = Troponin-I) system which g enerated this result transmit yue reference range : <=0.40. The reference r xu was not used to interpr et this result as sera l/abnormal. [facility] CenterMirador BiomedicalAC [id number] 19:00:00 Test Item Value Reference Range Interpretation Comments Total CK (test code = Total CK) 39 12-191 [facility] CenterMir[facility] BiomedicalAC [id number] 19:00:00 Test Item Value Reference Range Interpretation Comments CK MB (test code = CK MB) no gt 0.5-3.6 [facility] [employer] [id number] 19:00:00 Test Item Value Reference Range Interpretation Comments Calcium Lvl (test code = Calcium Lvl) 9.3 8.5-10.5 [facility]2016-02-12 19:00:00 Test Item Value Reference Range Interpretation Comments AGAP (test code = AGAP) 11.6 10.0-20.0 [facility]2016-02-12 19:00:00 Test Item Value Reference Range Interpretation Comments CO2 (test code = CO2) 26 24-32 [facility]2016-02-12 19:00:00 Test Item Value Reference Range Interpretation Comments Sodium Lvl (test code = Sodium Lvl) 141 135-145 [facility]2016-02-12 19:00:00 Test Item Value Reference Range Interpretation Comments BUN (test code = BUN) 10 7-22 [facility]2016-02-12 19:00:00 Test Item Value Reference Range Interpretation Comments Potassium Lvl (test code = Potassium 3.6 3.5-5.1 Lvl) [facility]2016-02-12 19:00:00 Test Item Value Reference Range Interpretation Comments Chloride Lvl (test code = Chloride Lvl) 107 95-109 [facility]2016-02-12 19:00:00 Test Item Value Reference Range Interpretation Comments eGFR (test code = eGFR) 83 [facility]2016-02-12 19:00:00 Test Item Value Reference Range Interpretation Comments Creatinine Lvl (test code = Creatinine 0.82 0.50-1.40 Lvl) [facility]2016-02-12 19:00:00 Test Item Value Reference Range Interpretation Comments Glucose Lvl (test code = Glucose Lvl) 97 70-99 [facility]LdkylltFOQUIYTKDG4212-37-03 19:00:00 Test Item Value Reference Range Interpretation Comments Basophils # (test code 0.0 See_Comment [Aut omated message] The = Basophils #) system which generated this result tra nsmitted reference range : <=0.2. The reference r xu was not used to int erpret this result as normal/abnormal . [facility]YnfticaJORTKJXXIN3415-34-29 19:00:00 Test Item Value Reference Range Interpretation Comments Lymphocytes (test code = Lymphocytes) 29.6 20.0-40.0 [facility]LdsuutmHKUQANGXOE6166-47-67 19:00:00 Test Item Value Reference Range Interpretation Comments Monocytes # (test code 0.5 See_Comment [Aut omated message] The = Monocytes #) system which generated this result tra nsmitted reference range : <=0.8. The reference r xu was not used to int erpret this result as normal/abnormal . [facility]ZpwctdeUUOIQRPRKE8302-94-58 19:00:00 Test Item Value Reference Range Interpretation Comments Eosinophils # (test code 0.0 See_Comment [A utomated message] The = Eosinophils #) system whic h generated this result tra nsmitted reference range : <=0.5. The reference r xu was not used to int erpret this result as normal/abnormal . [facility]VrlakefVIZCQFGFWG1126-18-84 19:00:00 Test Item Value Reference Range Interpretation Comments Basophils (test code = 0.2 See_Comment [Aut omated message] The Basophils) system which ge nerated this result tra nsmitted reference range : <=1.0. The reference r xu was not used to int erpret this result as normal/abnormal . [facility]QslybshDQTQQKOISM8166-39-70 19:00:00 Test Item Value Reference Range Interpretation Comments Lymphocytes # (test code = Lymphocytes 1.7 1.0-5.5 #) [facility]CtqzwgwGEAWXIZRYD5800-71-82 19:00:00 Test Item Value Reference Range Interpretation Comments Segs-Bands # (test code = Segs-Bands #) 3.7 1.5-8.1 [facility]HwfxbmgGMSBUNYKXQ4642-27-95 19:00:00 Test Item Value Reference Range Interpretation Comments Monocytes (test code = Monocytes) 7.7 2.0-12.0 [facility]KsjtccoIATMKYFOSF4718-42-46 19:00:00 Test Item Value Reference Range Interpretation Comments Eosinophils (test code = 0.0 See_Comment [A utomated message] The Eosinophils) system which ge nerated this result tra nsmitted reference range : <=4.0. The reference r xu was not used to int erpret this result as normal/abnormal . [facility]OvqfmszTEOOSNCSBN8398-69-74 19:00:00 Test Item Value Reference Range Interpretation Comments Segs (test code = Segs) 62.5 45.0-75.0 [facility]YlwutphRPCZVMPTAY4163-80-15 19:00:00 Test Item Value Reference Range Interpretation Comments RDW (test code = RDW) 12.5 11.5-14.5 [facility]DpducmkPVORIYYTZV9866-62-83 19:00:00 Test Item Value Reference Range Interpretation Comments MCHC (test code = MCHC) 32.8 32.0-36.0 [facility]BwvlqooLGSJSVUFKW5205-48-87 19:00:00 Test Item Value Reference Range Interpretation Comments MCH (test code = MCH) 28.0 pg 27.0-31.0 [facility]VcsirtaAZOQRMZJTS0930-94-47 19:00:00 Test Item Value Reference Range Interpretation Comments MCV (test code = MCV) 85.3 80.0-98.0 [facility]HnnrqkoHTNXVYVVKL6042-98-99 19:00:00 Test Item Value Reference Range Interpretation Comments Hct (test code = Hct) 36.6 36.0-48.0 [facility]JvwmpmwUOZINJRDNH7296-74-69 19:00:00 Test Item Value Reference Range Interpretation Comments Hgb (test code = Hgb) 12.0 12.0-16.0 [facility]BflshktABJBAHSCPV2970-35-09 19:00:00 Test Item Value Reference Range Interpretation Comments WBC (test code = WBC) 5.9 3.7-10.4 [facility]HealthDiktzbyIJUCMZIXHS2492-60-39 19:00:00 Test Item Value Reference Range Interpretation Comments RBC (test code = RBC) 4.29 4.20-5.40 [facility]ZxheiyxIJYXADDCTJ5831-11-50 19:00:00 Test Item Value Reference Range Interpretation Comments MPV (test code = MPV) 8.5 7.4-10.4 [facility]HealthBpgjgqvINGWTBZPQD9171-92-02 19:00:00 Test Item Value Reference Range Interpretation Comments Platelet (test code = Platelet) 192 133-450 [facility] AND [id number] 19:00:00 Test Item Value Reference Range Interpretation Comments UA Urobilinogen (test code = UA <=1.0 mg/dL 0.1-1.0 Urobilinogen) [facility] AND [id number] 19:00:00 Test Item Value Reference Range Interpretation Comments UA Ketones (test code = UA Ketones) Negative [facility] AND [id number] 19:00:00 Test Item Value Reference Range Interpretation Comments UA RBC (test code = no gt See_Comment [Automa yue message] The UA RBC) system which ge nerated this result transmit yue reference range : <=2. The reference range was not used to interpr et this result as sera l/abnormal. [facility] AND [id number] 19:00:00 Test Item Value Reference Range Interpretation Comments UA Color (test code = Light Yellow UA Color) *NA*(06/21/15 1:00 PM) [facility] AND [id number] 19:00:00 Test Item Value Reference Range Interpretation Comments UA Turbidity (test code = Clear (06/21/15 1:00 UA Turbidity) PM) [facility] AND [id number] 19:00:00 Test Item Value Reference Range Interpretation Comments UA Sq Epi (test code = UA Sq Epi) Few /LPF [facility] AND [id number] 19:00:00 Test Item Value Reference Range Interpretation Comments UA WBC (test code = 1 See_Comment [Automa yue message] The UA WBC) system which ge nerated this result transmit yue reference range : <=5. The reference range was not used to interpr et this result as sera l/abnormal. [facility] AND [id number] 19:00:00 Test Item Value Reference Range Interpretation Comments UA Blood (test code = Negative (06/21/15 1:00 UA Blood) PM) [facility] AND [id number] 19:00:00 Test Item Value Reference Range Interpretation Comments UA Nitrite (test code Negative (06/21/15 1:00 = UA Nitrite) PM) [facility] AND [id number] 19:00:00 Test Item Value Reference Range Interpretation Comments UA Leuk Est (test Negative (06/21/15 1:00 code = UA Leuk Est) PM) [facility] AND [id number] 19:00:00 Test Item Value Reference Range Interpretation Comments UA Glucose (test code = UA Negative mg/dL Glucose) [facility] AND [id number] 19:00:00 Test Item Value Reference Range Interpretation Comments UA Bili (test code = Negative *NA*(06/21/15 UA Bili) 1:00 PM) [facility] AND [id number] 19:00:00 Test Item Value Reference Range Interpretation Comments UA Spec Grav (test code = UA Spec Grav) 1.011 [facility] [id number] 19:00:00 Test Item Value Reference Range Interpretation Comments UA pH (test code = UA pH) 8.0 5.0-8.0 [facility] [id number] 19:00:00 Test Item Value Reference Range Interpretation Comments UA Protein (test code = UA Negative mg/dL Protein) [facility] HospitalannCARNXVISIONAC [id number] 19:00:00 Test Item Value Reference Range Interpretation Comments CK MB Index (test no gt See_Comment [Automate d message] The code = CK MB Index) system w [facility] generated this result transmit yue reference range : <=2.5. The reference range was not used to interpr et this result as sera l/abnormal. [facility] [employer] [id number] 19:00:00 Test Item Value Reference Range Interpretation Comments Troponin-I (test code no gt See_Comment [Auto mated message] The = Troponin-I) system which g enerated this result transmit yue reference range : <=0.40. The reference r xu was not used to interpr et this result as sera l/abnormal. [facility] [employer] [id number] 19:00:00 Test Item Value Reference Range Interpretation Comments Total CK (test code = Total CK) 39 12-191 [facility] [employer] [id number] 19:00:00 Test Item Value Reference Range Interpretation Comments CK MB (test code = CK MB) no gt 0.5-3.6 [facility] [employer] [id number] 19:00:00 Test Item Value Reference Range Interpretation Comments Calcium Lvl (test code = Calcium Lvl) 9.3 8.5-10.5 [facility] [employer] [id number] 19:00:00 Test Item Value Reference Range Interpretation Comments AGAP (test code = AGAP) 11.6 10.0-20.0 [facility] [employer] [id number] 19:00:00 Test Item Value Reference Range Interpretation Comments CO2 (test code = CO2) 26 24-32 [facility] [employer] [id number] 19:00:00 Test Item Value Reference Range Interpretation Comments Sodium Lvl (test code = Sodium Lvl) 141 135-145 [facility]2016-02-12 19:00:00 Test Item Value Reference Range Interpretation Comments BUN (test code = BUN) 10 7-22 [facility]2016-02-12 19:00:00 Test Item Value Reference Range Interpretation Comments Potassium Lvl (test code = Potassium 3.6 3.5-5.1 Lvl) [facility]2016-02-12 19:00:00 Test Item Value Reference Range Interpretation Comments Chloride Lvl (test code = Chloride Lvl) 107 95-109 [facility]2016-02-12 19:00:00 Test Item Value Reference Range Interpretation Comments eGFR (test code = eGFR) 83 [facility]2016-02-12 19:00:00 Test Item Value Reference Range Interpretation Comments Creatinine Lvl (test code = Creatinine 0.82 0.50-1.40 Lvl) [facility]2016-02-12 19:00:00 Test Item Value Reference Range Interpretation Comments Glucose Lvl (test code = Glucose Lvl) 97 70-99 [facility]HfpvmuhYPPTBYXEMB3075-32-89 19:00:00 Test Item Value Reference Range Interpretation Comments Basophils # (test code 0.0 See_Comment [Aut omated message] The = Basophils #) system which generated this result tra nsmitted reference range : <=0.2. The reference r xu was not used to int erpret this result as normal/abnormal . [facility]UnybvrbUSAIMCKBTJ2669-49-32 19:00:00 Test Item Value Reference Range Interpretation Comments Lymphocytes (test code = Lymphocytes) 29.6 20.0-40.0 [facility]OaczdlkQXNXJYQCRG0022-01-84 19:00:00 Test Item Value Reference Range Interpretation Comments Monocytes # (test code 0.5 See_Comment [Aut omated message] The = Monocytes #) system which generated this result tra nsmitted reference range : <=0.8. The reference r xu was not used to int erpret this result as normal/abnormal . [facility]PnpefkrFEUBBRXJBT8068-04-76 19:00:00 Test Item Value Reference Range Interpretation Comments Eosinophils # (test code 0.0 See_Comment [A utomated message] The = Eosinophils #) system whic h generated this result tra nsmitted reference range : <=0.5. The reference r xu was not used to int erpret this result as normal/abnormal . [facility]ZqvmympHBLKAJCBPU0885-00-79 19:00:00 Test Item Value Reference Range Interpretation Comments Basophils (test code = 0.2 See_Comment [Aut omated message] The Basophils) system which ge nerated this result tra nsmitted reference range : <=1.0. The reference r xu was not used to int erpret this result as normal/abnormal . [facility]DmlbhrsIZLMTVTHAI3474-47-44 19:00:00 Test Item Value Reference Range Interpretation Comments Lymphocytes # (test code = Lymphocytes 1.7 1.0-5.5 #) [facility]YgpesmhGVJHQYWNZH7539-19-40 19:00:00 Test Item Value Reference Range Interpretation Comments Segs-Bands # (test code = Segs-Bands #) 3.7 1.5-8.1 [facility]WlmcifqPFVPFCQCSS7106-13-07 19:00:00 Test Item Value Reference Range Interpretation Comments Monocytes (test code = Monocytes) 7.7 2.0-12.0 [facility]JxsnuqzXKFOCCFDBX2309-33-14 19:00:00 Test Item Value Reference Range Interpretation Comments Eosinophils (test code = 0.0 See_Comment [A utomated message] The Eosinophils) system which ge nerated this result tra nsmitted reference range : <=4.0. The reference r xu was not used to int erpret this result as normal/abnormal . [facility]IdupzvnEQFKABFJPT6010-24-92 19:00:00 Test Item Value Reference Range Interpretation Comments Segs (test code = Segs) 62.5 45.0-75.0 [facility]HealthZxqqaeyCXCBUOMOUF3570-13-81 19:00:00 Test Item Value Reference Range Interpretation Comments RDW (test code = RDW) 12.5 11.5-14.5 [facility]HealthAmgeouzMWQSBJPSFM1468-17-48 19:00:00 Test Item Value Reference Range Interpretation Comments MCHC (test code = MCHC) 32.8 32.0-36.0 [facility]HealthUxuneuwAFDUZDYYYP8363-16-61 19:00:00 Test Item Value Reference Range Interpretation Comments MCH (test code = MCH) 28.0 pg 27.0-31.0 [facility]XsdubitGIVKVRQBKI8252-68-39 19:00:00 Test Item Value Reference Range Interpretation Comments MCV (test code = MCV) 85.3 80.0-98.0 [facility]BybucqkVTUFADOROK8997-04-78 19:00:00 Test Item Value Reference Range Interpretation Comments Hct (test code = Hct) 36.6 36.0-48.0 [id number] 19:00:00 Test Item Value Reference Range Interpretation Comments Hgb (test code = Hgb) 12.0 12.0-16.0 [id number] 19:00:00 Test Item Value Reference Range Interpretation Comments WBC (test code = WBC) 5.9 3.7-10.4 [facility]MnbapcaVVGMHKWKJB3837-96-23 19:00:00 Test Item Value Reference Range Interpretation Comments RBC (test code = RBC) 4.29 4.20-5.40 [facility]ZkbxlosDVSEFCWGOE1282-60-48 19:00:00 Test Item Value Reference Range Interpretation Comments MPV (test code = MPV) 8.5 7.4-10.4 [facility]XfbogvsCUZEYURFCT5356-27-65 19:00:00 Test Item Value Reference Range Interpretation Comments Platelet (test code = Platelet) 192 133-450 [facility]2016-02-12 19:00:00 Test Item Value Reference Range Interpretation Comments UA Urobilinogen (test code = UA <=1.0 mg/dL 0.1-1.0 Urobilinogen) [facility]2016-02-12 19:00:00 Test Item Value Reference Range Interpretation Comments UA Ketones (test code = UA Ketones) Negative [facility]2016-02-12 19:00:00 Test Item Value Reference Range Interpretation Comments UA RBC (test code = no gt See_Comment [Automa yue message] The UA RBC) system which ge nerated this result transmit yue reference range : <=2. The reference range was not used to interpr et this result as sera l/abnormal. [facility]2016-02-12 19:00:00 Test Item Value Reference Range Interpretation Comments UA Color (test code = Light Yellow UA Color) *NA*(06/21/15 1:00 PM) [facility]2016-02-12 19:00:00 Test Item Value Reference Range Interpretation Comments UA Turbidity (test code = Clear (06/21/15 1:00 UA Turbidity) PM) [facility] AND [id number] 19:00:00 Test Item Value Reference Range Interpretation Comments UA Sq Epi (test code = UA Sq Epi) Few /LPF [facility] AND [id number] 19:00:00 Test Item Value Reference Range Interpretation Comments UA WBC (test code = 1 See_Comment [Automa yue message] The UA WBC) system which ge nerated this result transmit yue reference range : <=5. The reference range was not used to interpr et this result as sera l/abnormal. [facility] AND [id number] 19:00:00 Test Item Value Reference Range Interpretation Comments UA Blood (test code = Negative (06/21/15 1:00 UA Blood) PM) [facility] AND [id number] 19:00:00 Test Item Value Reference Range Interpretation Comments UA Nitrite (test code Negative (06/21/15 1:00 = UA Nitrite) PM) [facility] AND [id number] 19:00:00 Test Item Value Reference Range Interpretation Comments UA Leuk Est (test Negative (06/21/15 1:00 code = UA Leuk Est) PM) [facility] AND [id number] 19:00:00 Test Item Value Reference Range Interpretation Comments UA Glucose (test code = UA Negative mg/dL Glucose) [facility] AND [id number] 19:00:00 Test Item Value Reference Range Interpretation Comments UA Bili (test code = Negative *NA*(06/21/15 UA Bili) 1:00 PM) [facility] AND [id number] 19:00:00 Test Item Value Reference Range Interpretation Comments UA Spec Grav (test code = UA Spec Grav) 1.011 [facility] AND [id number] 19:00:00 Test Item Value Reference Range Interpretation Comments UA pH (test code = UA pH) 8.0 5.0-8.0 [facility] AND [id number] 19:00:00 Test Item Value Reference Range Interpretation Comments UA Protein (test code = UA Negative mg/dL Protein) [facility]2016-02-12 19:00:00 Test Item Value Reference Range Interpretation Comments CK MB Index (test no gt See_Comment [Automate d message] The code = CK MB Index) system w charh generated this result transmit yue reference range : <=2.5. The reference range was not used to interpr et this result as sera l/abnormal. [facility]2016-02-12 19:00:00 Test Item Value Reference Range Interpretation Comments Troponin-I (test code no gt See_Comment [Auto mated message] The = Troponin-I) system which g enerated this result transmit yue reference range : <=0.40. The reference r xu was not used to interpr et this result as sera l/abnormal. [facility]2016-02-12 19:00:00 Test Item Value Reference Range Interpretation Comments Total CK (test code = Total CK) 39 12-191 [facility]2016-02-12 19:00:00 Test Item Value Reference Range Interpretation Comments CK MB (test code = CK MB) no gt 0.5-3.6 [facility]2016-02-12 19:00:00 Test Item Value Reference Range Interpretation Comments Calcium Lvl (test code = Calcium Lvl) 9.3 8.5-10.5 [facility]2016-02-12 19:00:00 Test Item Value Reference Range Interpretation Comments AGAP (test code = AGAP) 11.6 10.0-20.0 [facility]2016-02-12 19:00:00 Test Item Value Reference Range Interpretation Comments CO2 (test code = CO2) 26 24-32 [facility]2016-02-12 19:00:00 Test Item Value Reference Range Interpretation Comments Sodium Lvl (test code = Sodium Lvl) 141 135-145 [facility]2016-02-12 19:00:00 Test Item Value Reference Range Interpretation Comments BUN (test code = BUN) 10 7-22 [facility]2016-02-12 19:00:00 Test Item Value Reference Range Interpretation Comments Potassium Lvl (test code = Potassium 3.6 3.5-5.1 Lvl) [facility]2016-02-12 19:00:00 Test Item Value Reference Range Interpretation Comments Chloride Lvl (test code = Chloride Lvl) 107 95-109 [facility]2016-02-12 19:00:00 Test Item Value Reference Range Interpretation Comments eGFR (test code = eGFR) 83 [facility]2016-02-12 19:00:00 Test Item Value Reference Range Interpretation Comments Creatinine Lvl (test code = Creatinine 0.82 0.50-1.40 Lvl) [facility]2016-02-12 19:00:00 Test Item Value Reference Range Interpretation Comments Glucose Lvl (test code = Glucose Lvl) 97 70-99 [id number] 19:00:00 Test Item Value Reference Range Interpretation Comments Basophils # (test code 0.0 See_Comment [Aut omated message] The = Basophils #) system which generated this result tra nsmitted reference range : <=0.2. The reference r xu was not used to int erpret this result as normal/abnormal . [facility]HsttvphTMWJNSBVJJ6476-60-15 19:00:00 Test Item Value Reference Range Interpretation Comments Lymphocytes (test code = Lymphocytes) 29.6 20.0-40.0 [facility]JeiluxzWXIDCKJEMY6739-74-60 19:00:00 Test Item Value Reference Range Interpretation Comments Monocytes # (test code 0.5 See_Comment [Aut omated message] The = Monocytes #) system which generated this result tra nsmitted reference range : <=0.8. The reference r xu was not used to int erpret this result as normal/abnormal . [facility]EsritubCLWRVCKQTW4170-64-59 19:00:00 Test Item Value Reference Range Interpretation Comments Eosinophils # (test code 0.0 See_Comment [A utomated message] The = Eosinophils #) system whic h generated this result tra nsmitted reference range : <=0.5. The reference r xu was not used to int erpret this result as normal/abnormal . [facility]FpvtksxDTIFUSTYSD9095-16-31 19:00:00 Test Item Value Reference Range Interpretation Comments Basophils (test code = 0.2 See_Comment [Aut omated message] The Basophils) system which ge nerated this result tra nsmitted reference range : <=1.0. The reference r xu was not used to int erpret this result as normal/abnormal . [facility]ZbtwhroVFFJSSAWKK3933-95-01 19:00:00 Test Item Value Reference Range Interpretation Comments Lymphocytes # (test code = Lymphocytes 1.7 1.0-5.5 #) [id number] 19:00:00 Test Item Value Reference Range Interpretation Comments Segs-Bands # (test code = Segs-Bands #) 3.7 1.5-8.1 [id number] 19:00:00 Test Item Value Reference Range Interpretation Comments Monocytes (test code = Monocytes) 7.7 2.0-12.0 [facility]AwxwbuzRWQEGXRCFL7302-62-04 19:00:00 Test Item Value Reference Range Interpretation Comments Eosinophils (test code = 0.0 See_Comment [A utomated message] The Eosinophils) system which ge nerated this result tra nsmitted reference range : <=4.0. The reference r xu was not used to int erpret this result as normal/abnormal . [facility]KvbfbtlUCKNDWZBHT0302-13-86 19:00:00 Test Item Value Reference Range Interpretation Comments Segs (test code = Segs) 62.5 45.0-75.0 [facility]LeqhxmjGJLEKOGTNY8418-78-70 19:00:00 Test Item Value Reference Range Interpretation Comments RDW (test code = RDW) 12.5 11.5-14.5 [facility]MfoctxnLFWXSXRJIZ9257-78-92 19:00:00 Test Item Value Reference Range Interpretation Comments MCHC (test code = MCHC) 32.8 32.0-36.0 [facility]JojcnmcBKYEFXDYSO4216-01-25 19:00:00 Test Item Value Reference Range Interpretation Comments MCH (test code = MCH) 28.0 pg 27.0-31.0 [facility]UhjimodBPJRPVYLQI2619-55-55 19:00:00 Test Item Value Reference Range Interpretation Comments MCV (test code = MCV) 85.3 80.0-98.0 [facility]QyobcjrFXRIPKMGYN2597-08-19 19:00:00 Test Item Value Reference Range Interpretation Comments Hct (test code = Hct) 36.6 36.0-48.0 [facility]JyavjndUPSAXMGTWQ4379-22-68 19:00:00 Test Item Value Reference Range Interpretation Comments Hgb (test code = Hgb) 12.0 12.0-16.0 [id number] 19:00:00 Test Item Value Reference Range Interpretation Comments WBC (test code = WBC) 5.9 3.7-10.4 [id number] 19:00:00 Test Item Value Reference Range Interpretation Comments RBC (test code = RBC) 4.29 4.20-5.40 [facility]ChrqviqFKYBTGKSWF0046-91-03 19:00:00 Test Item Value Reference Range Interpretation Comments MPV (test code = MPV) 8.5 7.4-10.4 [id number] 19:00:00 Test Item Value Reference Range Interpretation Comments Platelet (test code = Platelet) 192 133-450 [facility] AND [id number] 19:00:00 Test Item Value Reference Range Interpretation Comments UA Urobilinogen (test code = UA <=1.0 mg/dL 0.1-1.0 Urobilinogen) [facility] AND [id number] 19:00:00 Test Item Value Reference Range Interpretation Comments UA Ketones (test code = UA Ketones) Negative [facility] AND [id number] 19:00:00 Test Item Value Reference Range Interpretation Comments UA RBC (test code = no gt See_Comment [Automa yue message] The UA RBC) system which ge nerated this result transmit yue reference range : <=2. The reference range was not used to interpr et this result as sera l/abnormal. [facility] AND [id number] 19:00:00 Test Item Value Reference Range Interpretation Comments UA Color (test code = Light Yellow UA Color) *NA*(06/21/15 1:00 PM) [facility] AND [id number] 19:00:00 Test Item Value Reference Range Interpretation Comments UA Turbidity (test code = Clear (06/21/15 1:00 UA Turbidity) PM) [facility] AND [id number] 19:00:00 Test Item Value Reference Range Interpretation Comments UA Sq Epi (test code = UA Sq Epi) Few /LPF [facility] AND [id number] 19:00:00 Test Item Value Reference Range Interpretation Comments UA WBC (test code = 1 See_Comment [Automa yue message] The UA WBC) system which nerated this result transmit yue reference range : <=5. The reference range was not used to interpr et this result as sera l/abnormal. [facility] AND [id number] 19:00:00 Test Item Value Reference Range Interpretation Comments UA Blood (test code = Negative (06/21/15 1:00 UA Blood) PM) [facility] AND [id number] 19:00:00 Test Item Value Reference Range Interpretation Comments UA Nitrite (test code Negative (06/21/15 1:00 = UA Nitrite) PM) [facility] AND [id number] 19:00:00 Test Item Value Reference Range Interpretation Comments UA Leuk Est (test Negative (06/21/15 1:00 code = UA Leuk Est) PM) [facility] AND [id number] 19:00:00 Test Item Value Reference Range Interpretation Comments UA Glucose (test code = UA Negative mg/dL Glucose) [facility] AND [id number] 19:00:00 Test Item Value Reference Range Interpretation Comments UA Bili (test code = Negative *NA*(06/21/15 UA Bili) 1:00 PM) [facility] AND [id number] 19:00:00 Test Item Value Reference Range Interpretation Comments UA Spec Grav (test code = UA Spec Grav) 1.011 [facility] AND [id number] 19:00:00 Test Item Value Reference Range Interpretation Comments UA pH (test code = UA pH) 8.0 5.0-8.0 [facility] AND [id number] 19:00:00 Test Item Value Reference Range Interpretation Comments UA Protein (test code = UA Negative mg/dL Protein) [facility] [id number] 19:00:00 Test Item Value Reference Range Interpretation Comments CK MB Index (test no gt See_Comment [Automate d message] The code = CK MB Index) system w [facility] generated this result transmit yue reference range : <=2.5. The reference range was not used to interpr et this result as sera l/abnormal. [facility] [id number] 19:00:00 Test Item Value Reference Range Interpretation Comments Troponin-I (test code no gt See_Comment [Auto mated message] The = Troponin-I) system which g enerated this result transmit yue reference range : <=0.40. The reference r xu was not used to interpr et this result as sera l/abnormal. [facility] [id number] 19:00:00 Test Item Value Reference Range Interpretation Comments Total CK (test code = Total CK) 39 12-191 [facility]Hook[facility] [id number] 19:00:00 Test Item Value Reference Range Interpretation Comments CK MB (test code = CK MB) no gt 0.5-3.6 [facility] [id number] 19:00:00 Test Item Value Reference Range Interpretation Comments Calcium Lvl (test code = Calcium Lvl) 9.3 8.5-10.5 [facility]Dig[facility] [id number] 19:00:00 Test Item Value Reference Range Interpretation Comments AGAP (test code = AGAP) 11.6 10.0-20.0 [facility] [id number] 19:00:00 Test Item Value Reference Range Interpretation Comments CO2 (test code = CO2) 26 24-32 [facility] [id number] 19:00:00 Test Item Value Reference Range Interpretation Comments Sodium Lvl (test code = Sodium Lvl) 141 135-145 [facility] [id number] 19:00:00 Test Item Value Reference Range Interpretation Comments BUN (test code = BUN) 10 7-22 [facility]2016-02-12 19:00:00 Test Item Value Reference Range Interpretation Comments Potassium Lvl (test code = Potassium 3.6 3.5-5.1 Lvl) [facility] [id number] 19:00:00 Test Item Value Reference Range Interpretation Comments Chloride Lvl (test code = Chloride Lvl) 107 95-109 [facility] [id number] 19:00:00 Test Item Value Reference Range Interpretation Comments eGFR (test code = eGFR) 83 [facility]2016-02-12 19:00:00 Test Item Value Reference Range Interpretation Comments Creatinine Lvl (test code = Creatinine 0.82 0.50-1.40 Lvl) [facility] [id number] 19:00:00 Test Item Value Reference Range Interpretation Comments Glucose Lvl (test code = Glucose Lvl) 97 70-99 [id number] 19:00:00 Test Item Value Reference Range Interpretation Comments Basophils # (test code 0.0 See_Comment [Aut omated message] The = Basophils #) system which generated this result tra nsmitted reference range : <=0.2. The reference r xu was not used to int erpret this result as normal/abnormal . [id number] 19:00:00 Test Item Value Reference Range Interpretation Comments Lymphocytes (test code = Lymphocytes) 29.6 20.0-40.0 [facility]VigixfiYVAZFQCKEL1512-64-10 19:00:00 Test Item Value Reference Range Interpretation Comments Monocytes # (test code 0.5 See_Comment [Aut omated message] The = Monocytes #) system which generated this result tra nsmitted reference range : <=0.8. The reference r xu was not used to int erpret this result as normal/abnormal . [id number] 19:00:00 Test Item Value Reference Range Interpretation Comments Eosinophils # (test code 0.0 See_Comment [A utomated message] The = Eosinophils #) system whic h generated this result tra nsmitted reference range : <=0.5. The reference r xu was not used to int erpret this result as normal/abnormal . [facility]VbpawrfFYNIGORPOT9531-55-28 19:00:00 Test Item Value Reference Range Interpretation Comments Basophils (test code = 0.2 See_Comment [Aut omated message] The Basophils) system which ge nerated this result tra nsmitted reference range : <=1.0. The reference r xu was not used to int erpret this result as normal/abnormal . [facility]PsdlkakVLRXAJFKZY3160-41-18 19:00:00 Test Item Value Reference Range Interpretation Comments Lymphocytes # (test code = Lymphocytes 1.7 1.0-5.5 #) [id number] 19:00:00 Test Item Value Reference Range Interpretation Comments Segs-Bands # (test code = Segs-Bands #) 3.7 1.5-8.1 [facility]McvtbktBHTZFBSTWS6192-61-04 19:00:00 Test Item Value Reference Range Interpretation Comments Monocytes (test code = Monocytes) 7.7 2.0-12.0 [id number] 19:00:00 Test Item Value Reference Range Interpretation Comments Eosinophils (test code = 0.0 See_Comment [A utomated message] The Eosinophils) system which ge nerated this result tra nsmitted reference range : <=4.0. The reference r xu was not used to int erpret this result as normal/abnormal . [facility]DaxebcjJDRFASZBFB2241-95-60 19:00:00 Test Item Value Reference Range Interpretation Comments Segs (test code = Segs) 62.5 45.0-75.0 [facility]InkanvpGGGIHXRGEZ7491-99-74 19:00:00 Test Item Value Reference Range Interpretation Comments RDW (test code = RDW) 12.5 11.5-14.5 [id number] 19:00:00 Test Item Value Reference Range Interpretation Comments MCHC (test code = MCHC) 32.8 32.0-36.0 [id number] 19:00:00 Test Item Value Reference Range Interpretation Comments MCH (test code = MCH) 28.0 pg 27.0-31.0 [facility]EdufosgQLQDFJQEIS8492-01-10 19:00:00 Test Item Value Reference Range Interpretation Comments MCV (test code = MCV) 85.3 80.0-98.0 [id number] 19:00:00 Test Item Value Reference Range Interpretation Comments Hct (test code = Hct) 36.6 36.0-48.0 [facility]JlpzgfeQRNQTMMTMO1389-23-93 19:00:00 Test Item Value Reference Range Interpretation Comments Hgb (test code = Hgb) 12.0 12.0-16.0 [facility]P[id number] 19:00:00 Test Item Value Reference Range Interpretation Comments WBC (test code = WBC) 5.9 3.7-10.4 [facility]DkhcmzzZFNDLUVQYM7679-69-32 19:00:00 Test Item Value Reference Range Interpretation Comments RBC (test code = RBC) 4.29 4.20-5.40 [facility]ApunyemJFMCZTKEDV2512-23-39 19:00:00 Test Item Value Reference Range Interpretation Comments MPV (test code = MPV) 8.5 7.4-10.4 [facility] Hos[id number] 19:00:00 Test Item Value Reference Range Interpretation Comments Platelet (test code = Platelet) 192 133-450 [facility] AND [id number] 19:00:00 Test Item Value Reference Range Interpretation Comments UA Urobilinogen (test code = UA <=1.0 mg/dL 0.1-1.0 Urobilinogen) [facility] AND [id number] 19:00:00 Test Item Value Reference Range Interpretation Comments UA Ketones (test code = UA Ketones) Negative [facility] AND [id number] 19:00:00 Test Item Value Reference Range Interpretation Comments UA RBC (test code = no gt See_Comment [Automa yue message] The UA RBC) system which ge nerated this result transmit yue reference range : <=2. The reference range was not used to interpr et this result as sera l/abnormal. [facility] AND [id number] 19:00:00 Test Item Value Reference Range Interpretation Comments UA Color (test code = Light Yellow UA Color) *NA*(06/21/15 1:00 PM) [facility] AND [id number] 19:00:00 Test Item Value Reference Range Interpretation Comments UA Turbidity (test code = Clear (06/21/15 1:00 UA Turbidity) PM) [facility] AND [id number] 19:00:00 Test Item Value Reference Range Interpretation Comments UA Sq Epi (test code = UA Sq Epi) Few /LPF [facility] AND [id number] 19:00:00 Test Item Value Reference Range Interpretation Comments UA WBC (test code = 1 See_Comment [Automa yue message] The UA WBC) system which ge nerated this result transmit yue reference range : <=5. The reference range was not used to interpr et this result as sera l/abnormal. [facility] AND [id number] 19:00:00 Test Item Value Reference Range Interpretation Comments UA Blood (test code = Negative (06/21/15 1:00 UA Blood) PM) [facility] AND [id number] 19:00:00 Test Item Value Reference Range Interpretation Comments UA Nitrite (test code Negative (06/21/15 1:00 = UA Nitrite) PM) [facility] AND [id number] 19:00:00 Test Item Value Reference Range Interpretation Comments UA Leuk Est (test Negative (06/21/15 1:00 code = UA Leuk Est) PM) [facility] AND [id number] 19:00:00 Test Item Value Reference Range Interpretation Comments UA Glucose (test code = UA Negative mg/dL Glucose) [facility] AND [id number] 19:00:00 Test Item Value Reference Range Interpretation Comments UA Bili (test code = Negative *NA*(06/21/15 UA Bili) 1:00 PM) [facility] AND [id number] 19:00:00 Test Item Value Reference Range Interpretation Comments UA Spec Grav (test code = UA Spec Grav) 1.011 [facility] AND [id number] 19:00:00 Test Item Value Reference Range Interpretation Comments UA pH (test code = UA pH) 8.0 5.0-8.0 [facility] AND [id number] 19:00:00 Test Item Value Reference Range Interpretation Comments UA Protein (test code = UA Negative mg/dL Protein) [facility] HospitalCARNXVISIONAC [id number] 19:00:00 Test Item Value Reference Range Interpretation Comments CK MB Index (test no gt See_Comment [Automate d message] The code = CK MB Index) system w [facility] generated this result transmit yue reference range : <=2.5. The reference range was not used to interpr et this result as sera l/abnormal. [facility] [id number] 19:00:00 Test Item Value Reference Range Interpretation Comments Troponin-I (test code no gt See_Comment [Auto mated message] The = Troponin-I) system which g enerated this result transmit yue reference range : <=0.40. The reference r xu was not used to interpr et this result as sera l/abnormal. [facility] [id number] 19:00:00 Test Item Value Reference Range Interpretation Comments Total CK (test code = Total CK) 39 12-191 [facility] [id number] 19:00:00 Test Item Value Reference Range Interpretation Comments CK MB (test code = CK MB) no gt 0.5-3.6 [facility]2016-02-12 19:00:00 Test Item Value Reference Range Interpretation Comments Calcium Lvl (test code = Calcium Lvl) 9.3 8.5-10.5 [facility]2016-02-12 19:00:00 Test Item Value Reference Range Interpretation Comments AGAP (test code = AGAP) 11.6 10.0-20.0 [facility]2016-02-12 19:00:00 Test Item Value Reference Range Interpretation Comments CO2 (test code = CO2) 26 24-32 [facility]2016-02-12 19:00:00 Test Item Value Reference Range Interpretation Comments Sodium Lvl (test code = Sodium Lvl) 141 135-145 [facility]2016-02-12 19:00:00 Test Item Value Reference Range Interpretation Comments BUN (test code = BUN) 10 7-22 [facility]2016-02-12 19:00:00 Test Item Value Reference Range Interpretation Comments Potassium Lvl (test code = Potassium 3.6 3.5-5.1 Lvl) [facility]2016-02-12 19:00:00 Test Item Value Reference Range Interpretation Comments Chloride Lvl (test code = Chloride Lvl) 107 95-109 [facility]2016-02-12 19:00:00 Test Item Value Reference Range Interpretation Comments eGFR (test code = eGFR) 83 [facility]2016-02-12 19:00:00 Test Item Value Reference Range Interpretation Comments Creatinine Lvl (test code = Creatinine 0.82 0.50-1.40 Lvl) [facility]2016-02-12 19:00:00 Test Item Value Reference Range Interpretation Comments Glucose Lvl (test code = Glucose Lvl) 97 70-99 [facility] 19:[facility]:00 Test Item Value Reference Range Interpretation Comments Basophils # (test code 0.0 See_Comment [Aut omated message] The = Basophils #) system which generated this result tra nsmitted reference range : <=0.2. The reference r xu was not used to int erpret this result as normal/abnormal . [facility]zlrfzbFGPRQQXGBQ1588-57-13 19:00:00 Test Item Value Reference Range Interpretation Comments Lymphocytes (test code = Lymphocytes) 29.6 20.0-40.0 [facility]NtryfwzXNQJENQJPA4346-48-89 19:00:00 Test Item Value Reference Range Interpretation Comments Monocytes # (test code 0.5 See_Comment [Aut omated message] The = Monocytes #) system which generated this result tra nsmitted reference range : <=0.8. The reference r xu was not used to int erpret this result as normal/abnormal . [facility]GnmhgknNBYIOOCIIQ6430-61-57 19:00:00 Test Item Value Reference Range Interpretation Comments Eosinophils # (test code 0.0 See_Comment [A utomated message] The = Eosinophils #) system wh h generated this result tra nsmitted reference range : <=0.5. The reference r xu was not used to int erpret this result as normal/abnormal . [facility]SycnjylQSLYJKATDK4014-11-16 19:00:00 Test Item Value Reference Range Interpretation Comments Basophils (test code = 0.2 See_Comment [Aut omated message] The Basophils) system which ge nerated this result tra nsmitted reference range : <=1.0. The reference r xu was not used to int erpret this result as normal/abnormal . [facility]IlgfqfgECNJMGHYIY4921-49-49 19:00:00 Test Item Value Reference Range Interpretation Comments Lymphocytes # (test code = Lymphocytes 1.7 1.0-5.5 #) [facility]UuunjpzERIQYXBOFC4460-37-02 19:00:00 Test Item Value Reference Range Interpretation Comments Segs-Bands # (test code = Segs-Bands #) 3.7 1.5-8.1 [facility]CzxcxxcSJTSFYRPMG8493-93-57 19:00:00 Test Item Value Reference Range Interpretation Comments Monocytes (test code = Monocytes) 7.7 2.0-12.0 [facility]TnheljaNJWVMMZFJK3365-63-49 19:00:00 Test Item Value Reference Range Interpretation Comments Eosinophils (test code = 0.0 See_Comment [A utomated message] The Eosinophils) system which ge nerated this result tra nsmitted reference range : <=4.0. The reference r xu was not used to int erpret this result as normal/abnormal . [facility]ArxtoxeDWQCWACQGJ2903-59-15 19:00:00 Test Item Value Reference Range Interpretation Comments Segs (test code = Segs) 62.5 45.0-75.0 [facility]RnrvqpcGFYTVHPIPJ0016-28-15 19:00:00 Test Item Value Reference Range Interpretation Comments RDW (test code = RDW) 12.5 11.5-14.5 [facility]InebijdEGFZDTIDIX9242-50-82 19:00:00 Test Item Value Reference Range Interpretation Comments MCHC (test code = MCHC) 32.8 32.0-36.0 [facility]VuklmwdYZHNJRNUQI6556-58-91 19:00:00 Test Item Value Reference Range Interpretation Comments MCH (test code = MCH) 28.0 pg 27.0-31.0 [facility]BgidfnqYWDPQIAKUJ8268-51-81 19:00:00 Test Item Value Reference Range Interpretation Comments MCV (test code = MCV) 85.3 80.0-98.0 [facility]RnfkmgsPXJAKBOLCW6101-41-96 19:00:00 Test Item Value Reference Range Interpretation Comments Hct (test code = Hct) 36.6 36.0-48.0 [facility]BqftsoyYUEOPJUQRO0738-66-82 19:00:00 Test Item Value Reference Range Interpretation Comments Hgb (test code = Hgb) 12.0 12.0-16.0 [facility]ZpkhpulQZIMRYXFAD3836-03-62 19:00:00 Test Item Value Reference Range Interpretation Comments WBC (test code = WBC) 5.9 3.7-10.4 [facility]PfiuhtaQSVKMITVZG3476-96-28 19:00:00 Test Item Value Reference Range Interpretation Comments RBC (test code = RBC) 4.29 4.20-5.40 [facility]GxansauOTKLRKVMEP3581-39-20 19:00:00 Test Item Value Reference Range Interpretation Comments MPV (test code = MPV) 8.5 7.4-10.4 [facility]VrjmrolEUKNDRACXI4607-89-53 19:00:00 Test Item Value Reference Range Interpretation Comments Platelet (test code = Platelet) 192 133-450 [facility]2016-02-12 19:00:00 Test Item Value Reference Range Interpretation Comments UA Urobilinogen (test code = UA <=1.0 mg/dL 0.1-1.0 Urobilinogen) [facility] AND [id number] 19:00:00 Test Item Value Reference Range Interpretation Comments UA Ketones (test code = UA Ketones) Negative [facility] AND [id number] 19:00:00 Test Item Value Reference Range Interpretation Comments UA RBC (test code = no gt See_Comment [Automa yue message] The UA RBC) system which ge nerated this result transmit yue reference range : <=2. The reference range was not used to interpr et this result as sera l/abnormal. [facility] AND [id number] 19:00:00 Test Item Value Reference Range Interpretation Comments UA Color (test code = Light Yellow UA Color) *NA*(06/21/15 1:00 PM) [facility] AND [id number] 19:00:00 Test Item Value Reference Range Interpretation Comments UA Turbidity (test code = Clear (06/21/15 1:00 UA Turbidity) PM) [facility] AND [id number] 19:00:00 Test Item Value Reference Range Interpretation Comments UA Sq Epi (test code = UA Sq Epi) Few /LPF [facility] AND [id number] 19:00:00 Test Item Value Reference Range Interpretation Comments UA WBC (test code = 1 See_Comment [Automa yue message] The UA WBC) system which ge nerated this result transmit yue reference range : <=5. The reference range was not used to interpr et this result as sera l/abnormal. [facility] AND [id number] 19:00:00 Test Item Value Reference Range Interpretation Comments UA Blood (test code = Negative (06/21/15 1:00 UA Blood) PM) [facility] AND [id number] 19:00:00 Test Item Value Reference Range Interpretation Comments UA Nitrite (test code Negative (06/21/15 1:00 = UA Nitrite) PM) [facility] AND [id number] 19:00:00 Test Item Value Reference Range Interpretation Comments UA Leuk Est (test Negative (06/21/15 1:00 code = UA Leuk Est) PM) [facility] AND [id number] 19:00:00 Test Item Value Reference Range Interpretation Comments UA Glucose (test code = UA Negative mg/dL Glucose) [facility] AND [id number] 19:00:00 Test Item Value Reference Range Interpretation Comments UA Bili (test code = Negative *NA*(06/21/15 UA Bili) 1:00 PM) [facility] AND [id number] 19:00:00 Test Item Value Reference Range Interpretation Comments UA Spec Grav (test code = UA Spec Grav) 1.011 [facility] AND [id number] 19:00:00 Test Item Value Reference Range Interpretation Comments UA pH (test code = UA pH) 8.0 5.0-8.0 [facility] AND [id number] 19:00:00 Test Item Value Reference Range Interpretation Comments UA Protein (test code = UA Negative mg/dL Protein) [facility] [id number] 19:00:00 Test Item Value Reference Range Interpretation Comments CK MB Index (test no gt See_Comment [Automate d message] The code = CK MB Index) system w [facility] generated this result transmit yue reference range : <=2.5. The reference range was not used to interpr et this result as sera l/abnormal. [facility] 19:00:00 Test Item Value Reference Range Interpretation Comments Troponin-I (test code no gt See_Comment [Auto mated message] The = Troponin-I) system which g enerated this result transmit yue reference range : <=0.40. The reference r xu was not used to interpr et this result as sera l/abnormal. [facility] [employer]2016-02-12 19:00:00 Test Item Value Reference Range Interpretation Comments Total CK (test code = Total CK) 39 12-191 [facility] 19:00:00 Test Item Value Reference Range Interpretation Comments CK MB (test code = CK MB) no gt 0.5-3.6 [facility] [employer] [id number] 19:00:00 Test Item Value Reference Range Interpretation Comments Calcium Lvl (test code = Calcium Lvl) 9.3 8.5-10.5 [facility] [employer] [id number] 19:00:00 Test Item Value Reference Range Interpretation Comments AGAP (test code = AGAP) 11.6 10.0-20.0 [facility]2016-02-12 19:00:00 Test Item Value Reference Range Interpretation Comments CO2 (test code = CO2) 26 24-32 [facility]2016-02-12 19:00:00 Test Item Value Reference Range Interpretation Comments Sodium Lvl (test code = Sodium Lvl) 141 135-145 [place] [id number] 19:00:00 Test Item Value Reference Range Interpretation Comments BUN (test code = BUN) 10 7-22 [facility]2016-02-12 19:00:00 Test Item Value Reference Range Interpretation Comments Potassium Lvl (test code = Potassium 3.6 3.5-5.1 Lvl) [facility]2016-02-12 19:00:00 Test Item Value Reference Range Interpretation Comments Chloride Lvl (test code = Chloride Lvl) 107 95-109 [facility]2016-02-12 19:00:00 Test Item Value Reference Range Interpretation Comments eGFR (test code = eGFR) 83 [facility]2016-02-12 19:00:00 Test Item Value Reference Range Interpretation Comments Creatinine Lvl (test code = Creatinine 0.82 0.50-1.40 Lvl) [facility]2016-02-12 19:00:00 Test Item Value Reference Range Interpretation Comments Glucose Lvl (test code = Glucose Lvl) 97 70-99 [facility]DyzjmilOFGYFVYRXH3020-45-81 19:00:00 Test Item Value Reference Range Interpretation Comments Basophils # (test code 0.0 See_Comment [Aut omated message] The = Basophils #) system which generated this result tra nsmitted reference range : <=0.2. The reference r xu was not used to int erpret this result as normal/abnormal . [facility]WmzallwOYSYZZSQBA2058-28-58 19:00:00 Test Item Value Reference Range Interpretation Comments Lymphocytes (test code = Lymphocytes) 29.6 20.0-40.0 [facility]HxnjbyuLMHMUMYHTF5421-76-36 19:00:00 Test Item Value Reference Range Interpretation Comments Monocytes # (test code 0.5 See_Comment [Aut omated message] The = Monocytes #) system which generated this result tra nsmitted reference range : <=0.8. The reference r xu was not used to int erpret this result as normal/abnormal . [place] [id number] 19:00:00 Test Item Value Reference Range Interpretation Comments Eosinophils # (test code 0.0 See_Comment [A utomated message] The = Eosinophils #) system whic h generated this result tra nsmitted reference range : <=0.5. The reference r xu was not used to int erpret this result as normal/abnormal . [facility]TnphtvxGDSULKBCAT2151-86-43 19:00:00 Test Item Value Reference Range Interpretation Comments Basophils (test code = 0.2 See_Comment [Aut omated message] The Basophils) system which ge nerated this result tra nsmitted reference range : <=1.0. The reference r xu was not used to int erpret this result as normal/abnormal . [facility]ScaahwqHRAQUFZVHG0163-72-73 19:00:00 Test Item Value Reference Range Interpretation Comments Lymphocytes # (test code = Lymphocytes 1.7 1.0-5.5 #) [facility]UyoxxlwQNFNYQZHPF4587-07-75 19:00:00 Test Item Value Reference Range Interpretation Comments Segs-Bands # (test code = Segs-Bands #) 3.7 1.5-8.1 [facility]TqqnneiAXYAPXXTCX1620-39-66 19:00:00 Test Item Value Reference Range Interpretation Comments Monocytes (test code = Monocytes) 7.7 2.0-12.0 [facility]MhyulbhYZWMBYYACB9584-52-49 19:00:00 Test Item Value Reference Range Interpretation Comments Eosinophils (test code = 0.0 See_Comment [A utomated message] The Eosinophils) system which ge nerated this result tra nsmitted reference range : <=4.0. The reference r xu was not used to int erpret this result as normal/abnormal . [facility]VwbihrlXSLMXRGCDF2989-28-29 19:00:00 Test Item Value Reference Range Interpretation Comments Segs (test code = Segs) 62.5 45.0-75.0 [facility]XtkgalcKLGYMAUTNE7989-76-73 19:00:00 Test Item Value Reference Range Interpretation Comments RDW (test code = RDW) 12.5 11.5-14.5 [facility]WkkhzwwPBNBBIGGOH9470-39-98 19:00:00 Test Item Value Reference Range Interpretation Comments MCHC (test code = MCHC) 32.8 32.0-36.0 [facility]EmmmioqYXOOVRNOEB9140-69-93 19:00:00 Test Item Value Reference Range Interpretation Comments MCH (test code = MCH) 28.0 pg 27.0-31.0 [facility]ZtqdmpuPFFYJPOCEF7078-69-16 19:00:00 Test Item Value Reference Range Interpretation Comments MCV (test code = MCV) 85.3 80.0-98.0 [facility]NuijpftUHMEXUIHGL8854-09-92 19:00:00 Test Item Value Reference Range Interpretation Comments Hct (test code = Hct) 36.6 36.0-48.0 [facility]AqexmmtSVRWFPGURQ5050-38-00 19:00:00 Test Item Value Reference Range Interpretation Comments Hgb (test code = Hgb) 12.0 12.0-16.0 [facility]IsciyndLVFIZWZDJU5653-61-37 19:00:00 Test Item Value Reference Range Interpretation Comments WBC (test code = WBC) 5.9 3.7-10.4 [facility]EsualcrBFDWUANSWX3638-10-93 19:00:00 Test Item Value Reference Range Interpretation Comments RBC (test code = RBC) 4.29 4.20-5.40 [facility]EswglolXRNMRTBIWF9834-18-75 19:00:00 Test Item Value Reference Range Interpretation Comments MPV (test code = MPV) 8.5 7.4-10.4 [facility]LnruwbdCIZIGDQTEU3880-83-54 19:00:00 Test Item Value Reference Range Interpretation Comments Platelet (test code = Platelet) 192 133-450 [facility]2016-02-12 19:00:00 Test Item Value Reference Range Interpretation Comments UA Urobilinogen (test code = UA <=1.0 mg/dL 0.1-1.0 Urobilinogen) [facility]2016-02-12 19:00:00 Test Item Value Reference Range Interpretation Comments UA Ketones (test code = UA Ketones) Negative [facility]2016-02-12 19:00:00 Test Item Value Reference Range Interpretation Comments UA RBC (test code = no gt See_Comment [Automa yue message] The UA RBC) system which ge nerated this result transmit yue reference range : <=2. The reference range was not used to interpr et this result as sera l/abnormal. [facility]2016-02-12 19:00:00 Test Item Value Reference Range Interpretation Comments UA Color (test code = Light Yellow UA Color) *NA*(06/21/15 1:00 PM) [facility] AND [id number] 19:00:00 Test Item Value Reference Range Interpretation Comments UA Turbidity (test code = Clear (06/21/15 1:00 UA Turbidity) PM) [facility] AND [id number] 19:00:00 Test Item Value Reference Range Interpretation Comments UA Sq Epi (test code = UA Sq Epi) Few /LPF [facility] AND [id number] 19:00:00 Test Item Value Reference Range Interpretation Comments UA WBC (test code = 1 See_Comment [Automa yue message] The UA WBC) system which ge nerated this result transmit yue reference range : <=5. The reference range was not used to interpr et this result as sera l/abnormal. [facility] AND [id number] 19:00:00 Test Item Value Reference Range Interpretation Comments UA Blood (test code = Negative (06/21/15 1:00 UA Blood) PM) [facility] AND [id number] 19:00:00 Test Item Value Reference Range Interpretation Comments UA Nitrite (test code Negative (06/21/15 1:00 = UA Nitrite) PM) [facility] AND [id number] 19:00:00 Test Item Value Reference Range Interpretation Comments UA Leuk Est (test Negative (06/21/15 1:00 code = UA Leuk Est) PM) [facility] AND [id number] 19:00:00 Test Item Value Reference Range Interpretation Comments UA Glucose (test code = UA Negative mg/dL Glucose) [facility] AND [id number] 19:00:00 Test Item Value Reference Range Interpretation Comments UA Bili (test code = Negative *NA*(06/21/15 UA Bili) 1:00 PM) [facility] AND [id number] 19:00:00 Test Item Value Reference Range Interpretation Comments UA Spec Grav (test code = UA Spec Grav) 1.011 [facility] AND [id number] 19:00:00 Test Item Value Reference Range Interpretation Comments UA pH (test code = UA pH) 8.0 5.0-8.0 [facility] AND [id number] 19:00:00 Test Item Value Reference Range Interpretation Comments UA Protein (test code = UA Negative mg/dL Protein) [facility] [id number] 19:00:00 Test Item Value Reference Range Interpretation Comments CK MB Index (test no gt See_Comment [Automate d message] The code = CK MB Index) system w [facility] generated this result transmit yue reference range : <=2.5. The reference range was not used to interpr et this result as sera l/abnormal. [facility] [id number] 19:00:00 Test Item Value Reference Range Interpretation Comments Troponin-I (test code no gt See_Comment [Auto mated message] The = Troponin-I) system which g enerated this result transmit yue reference range : <=0.40. The reference r xu was not used to interpr et this result as sera l/abnormal. [facility] [id number] 19:00:00 Test Item Value Reference Range Interpretation Comments Total CK (test code = Total CK) 39 12-191 [facility] [id number] 19:00:00 Test Item Value Reference Range Interpretation Comments CK MB (test code = CK MB) no gt 0.5-3.6 [facility] [id number] 19:00:00 Test Item Value Reference Range Interpretation Comments Calcium Lvl (test code = Calcium Lvl) 9.3 8.5-10.5 [facility] [id number] 19:00:00 Test Item Value Reference Range Interpretation Comments AGAP (test code = AGAP) 11.6 10.0-20.0 [facility] [id number] 19:00:00 Test Item Value Reference Range Interpretation Comments CO2 (test code = CO2) 26 24-32 [facility] [id number] 19:00:00 Test Item Value Reference Range Interpretation Comments Sodium Lvl (test code = Sodium Lvl) 141 135-145 [facility] [id number] 19:00:00 Test Item Value Reference Range Interpretation Comments BUN (test code = BUN) 10 7-22 [facility] [id number] 19:00:00 Test Item Value Reference Range Interpretation Comments Potassium Lvl (test code = Potassium 3.6 3.5-5.1 Lvl) [facility]2016-02-12 19:00:00 Test Item Value Reference Range Interpretation Comments Chloride Lvl (test code = Chloride Lvl) 107 95-109 [facility]2016-02-12 19:00:00 Test Item Value Reference Range Interpretation Comments eGFR (test code = eGFR) 83 [facility]2016-02-12 19:00:00 Test Item Value Reference Range Interpretation Comments Creatinine Lvl (test code = Creatinine 0.82 0.50-1.40 Lvl) [facility]2016-02-12 19:00:00 Test Item Value Reference Range Interpretation Comments Glucose Lvl (test code = Glucose Lvl) 97 70-99 [facility]GiqprlkSCWACMHJPU0945-36-82 19:00:00 Test Item Value Reference Range Interpretation Comments Basophils # (test code 0.0 See_Comment [Aut omated message] The = Basophils #) system which generated this result tra nsmitted reference range : <=0.2. The reference r xu was not used to int erpret this result as normal/abnormal . [facility]JjqudrzVBVIBSJAGG5355-31-95 19:00:00 Test Item Value Reference Range Interpretation Comments Lymphocytes (test code = Lymphocytes) 29.6 20.0-40.0 [facility]VmalqmkPOGUSTYZJP6949-81-74 19:00:00 Test Item Value Reference Range Interpretation Comments Monocytes # (test code 0.5 See_Comment [Aut omated message] The = Monocytes #) system which generated this result tra nsmitted reference range : <=0.8. The reference r xu was not used to int erpret this result as normal/abnormal . [facility]PujmwzeZGWAXYLATD3949-77-39 19:00:00 Test Item Value Reference Range Interpretation Comments Eosinophils # (test code 0.0 See_Comment [A utomated message] The = Eosinophils #) system whic h generated this result tra nsmitted reference range : <=0.5. The reference r xu was not used to int erpret this result as normal/abnormal . [facility]YlmtraeEQCHPYHWKG6291-11-92 19:00:00 Test Item Value Reference Range Interpretation Comments Basophils (test code = 0.2 See_Comment [Aut omated message] The Basophils) system which ge nerated this result tra nsmitted reference range : <=1.0. The reference r xu was not used to int erpret this result as normal/abnormal . [facility]VuunmvlIGYVZOUQIZ8059-14-58 19:00:00 Test Item Value Reference Range Interpretation Comments Lymphocytes # (test code = Lymphocytes 1.7 1.0-5.5 #) [facility]LlfdmkxYQQENMSNPN2610-88-31 19:00:00 Test Item Value Reference Range Interpretation Comments Segs-Bands # (test code = Segs-Bands #) 3.7 1.5-8.1 [facility]IvmsveyROQPQQLBDA2018-31-13 19:00:00 Test Item Value Reference Range Interpretation Comments Monocytes (test code = Monocytes) 7.7 2.0-12.0 [facility]WbpcrlhWAGTEWSWTI3812-32-24 19:00:00 Test Item Value Reference Range Interpretation Comments Eosinophils (test code = 0.0 See_Comment [A utomated message] The Eosinophils) system which ge nerated this result tra nsmitted reference range : <=4.0. The reference r xu was not used to int erpret this result as normal/abnormal . [facility]TkxmxuvCQWIEZBCZX4459-68-91 19:00:00 Test Item Value Reference Range Interpretation Comments Segs (test code = Segs) 62.5 45.0-75.0 [facility]FjzagdsKBUKLAKSRR5808-02-09 19:00:00 Test Item Value Reference Range Interpretation Comments RDW (test code = RDW) 12.5 11.5-14.5 [facility]HufopczBVNLAVZUBO3196-20-69 19:00:00 Test Item Value Reference Range Interpretation Comments MCHC (test code = MCHC) 32.8 32.0-36.0 [facility]OwjrbgdZDSUZTMNKY2051-68-53 19:00:00 Test Item Value Reference Range Interpretation Comments MCH (test code = MCH) 28.0 pg 27.0-31.0 [facility]GmeclscAYTNMJDVEU3752-56-27 19:00:00 Test Item Value Reference Range Interpretation Comments MCV (test code = MCV) 85.3 80.0-98.0 [facility]SizyzkyQLFLTXAUYU1568-70-59 19:00:00 Test Item Value Reference Range Interpretation Comments Hct (test code = Hct) 36.6 36.0-48.0 [facility]JngbmtrFSBGSPCRKY5988-15-16 19:00:00 Test Item Value Reference Range Interpretation Comments Hgb (test code = Hgb) 12.0 12.0-16.0 [facility]MnmlgvaVBHFCPMVTA5750-59-58 19:00:00 Test Item Value Reference Range Interpretation Comments WBC (test code = WBC) 5.9 3.7-10.4 [facility]IvsoaveLZWBYGDHFA5383-48-20 19:00:00 Test Item Value Reference Range Interpretation Comments RBC (test code = RBC) 4.29 4.20-5.40 [facility]NlriirxOOZEOYFLLY7138-93-69 19:00:00 Test Item Value Reference Range Interpretation Comments MPV (test code = MPV) 8.5 7.4-10.4 [facility]DyfdbczROSXBPDKSV5404-54-66 19:00:00 Test Item Value Reference Range Interpretation Comments Platelet (test code = Platelet) 192 133-450 [facility]2016-02-12 19:00:00 Test Item Value Reference Range Interpretation Comments UA Urobilinogen (test code = UA <=1.0 mg/dL 0.1-1.0 Urobilinogen) [facility] AND [id number] 19:00:00 Test Item Value Reference Range Interpretation Comments UA Ketones (test code = UA Ketones) Negative [facility]2016-02-12 19:00:00 Test Item Value Reference Range Interpretation Comments UA RBC (test code = no gt See_Comment [Automa yue message] The UA RBC) system which ge nerated this result transmit yue reference range : <=2. The reference range was not used to interpr et this result as sera l/abnormal. [facility]2016-02-12 19:00:00 Test Item Value Reference Range Interpretation Comments UA Color (test code = Light Yellow UA Color) *NA*(06/21/15 1:00 PM) [facility] AND [id number] 19:00:00 Test Item Value Reference Range Interpretation Comments UA Turbidity (test code = Clear (06/21/15 1:00 UA Turbidity) PM) [facility] AND [id number] 19:00:00 Test Item Value Reference Range Interpretation Comments UA Sq Epi (test code = UA Sq Epi) Few /[facility]F [facility] [id number] 19:00:00 Test Item Value Reference Range Interpretation Comments UA WBC (test code = 1 See_Comment [Automa yue message] The UA WBC) system which ge nerated this result transmit yue reference range : <=5. The reference range was not used to interpr et this result as sera l/abnormal. [facility] [id number] 19:00:00 Test Item Value Reference Range Interpretation Comments UA Blood (test code = Negative (06/21/15 1:00 UA Blood) PM) [facility] [id number] 19:00:00 Test Item Value Reference Range Interpretation Comments UA Nitrite (test code Negative (06/21/15 1:00 = UA Nitrite) PM) [facility] [id number] 19:00:00 Test Item Value Reference Range Interpretation Comments UA Leuk Est (test Negative (06/21/15 1:00 code = UA Leuk Est) PM) [facility] [id number] 19:00:00 Test Item Value Reference Range Interpretation Comments UA Glucose (test code = UA Negative mg/dL Glucose) [facility] [id number] 19:00:00 Test Item Value Reference Range Interpretation Comments UA Bili (test code = Negative *NA*(06/21/15 UA Bili) 1:00 PM) [facility] [id number] 19:00:00 Test Item Value Reference Range Interpretation Comments UA Spec Grav (test code = UA Spec Grav) 1.011 [facility] [id number] 19:00:00 Test Item Value Reference Range Interpretation Comments UA pH (test code = UA pH) 8.0 5.0-8.0 [facility] [id number] 19:00:00 Test Item Value Reference Range Interpretation Comments UA Protein (test code = UA Negative mg/dL Protein) [facility] [id number] 19:00:00 Test Item Value Reference Range Interpretation Comments CK MB Index (test no gt See_Comment [Automate d message] The code = CK MB Index) system w [facility] generated this result transmit yue reference range : <=2.5. The reference range was not used to interpr et this result as sera l/abnormal. [facility] [employer]ARNXVISIONAC [id number] 19:00:00 Test Item Value Reference Range Interpretation Comments Troponin-I (test code no gt See_Comment [Auto mated message] The = Troponin-I) system which g enerated this result transmit yue reference range : <=0.40. The reference r xu was not used to interpr et this result as sera l/abnormal. [facility] [employer] [id number] 19:00:00 Test Item Value Reference Range Interpretation Comments Total CK (test code = Total CK) 39 12-191 [facility] [id number] 19:00:00 Test Item Value Reference Range Interpretation Comments CK MB (test code = CK MB) no gt 0.5-3.6 [facility] [employer] [id number] 19:00:00 Test Item Value Reference Range Interpretation Comments Calcium Lvl (test code = Calcium Lvl) 9.3 8.5-10.5 [facility] [employer] [id number] 19:00:00 Test Item Value Reference Range Interpretation Comments AGAP (test code = AGAP) 11.6 10.0-20.0 [facility] [employer] [id number] 19:00:00 Test Item Value Reference Range Interpretation Comments CO2 (test code = CO2) 26 24-32 [facility] [id number] 19:00:00 Test Item Value Reference Range Interpretation Comments Sodium Lvl (test code = Sodium Lvl) 141 135-145 [facility] [employer] [id number] 19:00:00 Test Item Value Reference Range Interpretation Comments BUN (test code = BUN) 10 7-22 [facility] [employer] [id number] 19:00:00 Test Item Value Reference Range Interpretation Comments Potassium Lvl (test code = Potassium 3.6 3.5-5.1 Lvl) [facility] [employer] [id number] 19:00:00 Test Item Value Reference Range Interpretation Comments Chloride Lvl (test code = Chloride Lvl) 107 95-109 [facility] [id number] 19:00:00 Test Item Value Reference Range Interpretation Comments eGFR (test code = eGFR) 83 [facility] [id number] 19:00:00 Test Item Value Reference Range Interpretation Comments Creatinine Lvl (test code = Creatinine 0.82 0.50-1.40 Lvl) [facility]2016-02-12 19:00:00 Test Item Value Reference Range Interpretation Comments Glucose Lvl (test code = Glucose Lvl) 97 70-99 [facility]JB2441-[facility]-64 19:00:00 Test Item Value Reference Range Interpretation Comments Basophils # (test code 0.0 See_Comment [Aut omated message] The = Basophils #) system which generated this result tra nsmitted reference range : <=0.2. The reference r xu was not used to int erpret this result as normal/abnormal . [facility]QejfoxpMONKLMYJUV1894-75-45 19:00:00 Test Item Value Reference Range Interpretation Comments Lymphocytes (test code = Lymphocytes) 29.6 20.0-40.0 [facility]XpccyvzKQXNGVSMGK3224-12-06 19:00:00 Test Item Value Reference Range Interpretation Comments Monocytes # (test code 0.5 See_Comment [Aut omated message] The = Monocytes #) system which generated this result tra nsmitted reference range : <=0.8. The reference r xu was not used to int erpret this result as normal/abnormal . [id number] 19:00:00 Test Item Value Reference Range Interpretation Comments Eosinophils # (test code 0.0 See_Comment [A utomated message] The = Eosinophils #) system whic h generated this result tra nsmitted reference range : <=0.5. The reference r xu was not used to int erpret this result as normal/abnormal . [id number] 19:00:00 Test Item Value Reference Range Interpretation Comments Basophils (test code = 0.2 See_Comment [Aut omated message] The Basophils) system which ge nerated this result tra nsmitted reference range : <=1.0. The reference r xu was not used to int erpret this result as normal/abnormal . [facility]QdlxkacGUPLVNVVZF3739-30-02 19:00:00 Test Item Value Reference Range Interpretation Comments Lymphocytes # (test code = Lymphocytes 1.7 1.0-5.5 #) [facility][id number] 19:00:00 Test Item Value Reference Range Interpretation Comments Segs-Bands # (test code = Segs-Bands #) 3.7 1.5-8.1 [facility]SqmwmmyPEEGHUBRDX2400-35-06 19:00:00 Test Item Value Reference Range Interpretation Comments Monocytes (test code = Monocytes) 7.7 2.0-12.0 [facility]TyunqrrCVOYUSSFFJ7818-93-98 19:00:00 Test Item Value Reference Range Interpretation Comments Eosinophils (test code = 0.0 See_Comment [A utomated message] The Eosinophils) system which ge nerated this result tra nsmitted reference range : <=4.0. The reference r xu was not used to int erpret this result as normal/abnormal . [facility]RbdtrunHSKWKFLGGX8165-30-11 19:00:00 Test Item Value Reference Range Interpretation Comments Segs (test code = Segs) 62.5 45.0-75.0 [facility]XgmdqshMXMPKKNRNE3577-32-63 19:00:00 Test Item Value Reference Range Interpretation Comments RDW (test code = RDW) 12.5 11.5-14.5 [facility]XjwirbqLQEXIKGSUB0322-37-17 19:00:00 Test Item Value Reference Range Interpretation Comments MCHC (test code = MCHC) 32.8 32.0-36.0 [facility]SbulxeeUZTPGNORIM2348-50-68 19:00:00 Test Item Value Reference Range Interpretation Comments MCH (test code = MCH) 28.0 pg 27.0-31.0 [facility]MdntmraSBMPZTWQUL9730-16-23 19:00:00 Test Item Value Reference Range Interpretation Comments MCV (test code = MCV) 85.3 80.0-98.0 [facility]EqnbfyxZAGRSJJOSA1619-34-50 19:00:00 Test Item Value Reference Range Interpretation Comments Hct (test code = Hct) 36.6 36.0-48.0 [facility]XmqtzfbVFMVOOMBAW1783-69-04 19:00:00 Test Item Value Reference Range Interpretation Comments Hgb (test code = Hgb) 12.0 12.0-16.0 [facility]FaiexybVCRJYHNUBP5529-80-15 19:00:00 Test Item Value Reference Range Interpretation Comments WBC (test code = WBC) 5.9 3.7-10.4 [facility]SsjakaqYUAVXCOIAC4633-43-40 19:00:00 Test Item Value Reference Range Interpretation Comments RBC (test code = RBC) 4.29 4.20-5.40 [facility]XzbtgcmMPTISCVTWS0091-31-64 19:00:00 Test Item Value Reference Range Interpretation Comments MPV (test code = MPV) 8.5 7.4-10.4 [facility]RbcepxnGBBHNPXZEO4022-18-30 19:00:00 Test Item Value Reference Range Interpretation Comments Platelet (test code = Platelet) 192 133-450 [facility] AND [id number] 19:00:00 Test Item Value Reference Range Interpretation Comments UA Urobilinogen (test code = UA <=1.0 mg/dL 0.1-1.0 Urobilinogen) [facility] AND [id number] 19:00:00 Test Item Value Reference Range Interpretation Comments UA Ketones (test code = UA Ketones) Negative [facility] AND [id number] 19:00:00 Test Item Value Reference Range Interpretation Comments UA RBC (test code = no gt See_Comment [Automa yue message] The UA RBC) system which ge nerated this result transmit yue reference range : <=2. The reference range was not used to interpr et this result as sera l/abnormal. [facility] AND [id number] 19:00:00 Test Item Value Reference Range Interpretation Comments UA Color (test code = Light Yellow UA Color) *NA*(06/21/15 1:00 PM) [facility] AND [id number] 19:00:00 Test Item Value Reference Range Interpretation Comments UA Turbidity (test code = Clear (06/21/15 1:00 UA Turbidity) PM) [facility] AND [id number] 19:00:00 Test Item Value Reference Range Interpretation Comments UA Sq Epi (test code = UA Sq Epi) Few /LPF [facility] AND [id number] 19:00:00 Test Item Value Reference Range Interpretation Comments UA WBC (test code = 1 See_Comment [Automa yue message] The UA WBC) system which ge nerated this result transmit yue reference range : <=5. The reference range was not used to interpr et this result as sera l/abnormal. [facility] AND [id number] 19:00:00 Test Item Value Reference Range Interpretation Comments UA Blood (test code = Negative (06/21/15 1:00 UA Blood) PM) [facility] AND [id number] 19:00:00 Test Item Value Reference Range Interpretation Comments UA Nitrite (test code Negative (06/21/15 1:00 = UA Nitrite) PM) [facility] AND [id number] 19:00:00 Test Item Value Reference Range Interpretation Comments UA Leuk Est (test Negative (06/21/15 1:00 code = UA Leuk Est) PM) [facility] AND [id number] 19:00:00 Test Item Value Reference Range Interpretation Comments UA Glucose (test code = UA Negative mg/dL Glucose) [facility] AND [id number] 19:00:00 Test Item Value Reference Range Interpretation Comments UA Bili (test code = Negative *NA*(06/21/15 UA Bili) 1:00 PM) [facility] AND [id number] 19:00:00 Test Item Value Reference Range Interpretation Comments UA Spec Grav (test code = UA Spec Grav) 1.011 [facility] AND [id number] 19:00:00 Test Item Value Reference Range Interpretation Comments UA pH (test code = UA pH) 8.0 5.0-8.0 [facility] AND [id number] 19:00:00 Test Item Value Reference Range Interpretation Comments UA Protein (test code = UA Negative mg/dL Protein) [facility] [id number] 19:00:00 Test Item Value Reference Range Interpretation Comments CK MB Index (test no gt See_Comment [Automate d message] The code = CK MB Index) system w [facility] generated this result transmit yue reference range : <=2.5. The reference range was not used to interpr et this result as sera l/abnormal. [facility] [id number] 19:00:00 Test Item Value Reference Range Interpretation Comments Troponin-I (test code no gt See_Comment [Auto mated message] The = Troponin-I) system which g enerated this result transmit yue reference range : <=0.40. The reference r xu was not used to interpr et this result as sera l/abnormal. [facility] [id number] 19:00:00 Test Item Value Reference Range Interpretation Comments Total CK (test code = Total CK) 39 12-191 [facility] [id number] 19:00:00 Test Item Value Reference Range Interpretation Comments CK MB (test code = CK MB) no gt 0.5-3.6 [facility] [id number] 19:00:00 Test Item Value Reference Range Interpretation Comments Calcium Lvl (test code = Calcium Lvl) 9.3 8.5-10.5 [facility] [id number] 19:00:00 Test Item Value Reference Range Interpretation Comments AGAP (test code = AGAP) 11.6 10.0-20.0 [facility] [id number] 19:00:00 Test Item Value Reference Range Interpretation Comments CO2 (test code = CO2) 26 24-32 [facility]2016-02-12 19:00:00 Test Item Value Reference Range Interpretation Comments Sodium Lvl (test code = Sodium Lvl) 141 135-145 [facility]2016-02-12 19:00:00 Test Item Value Reference Range Interpretation Comments BUN (test code = BUN) 10 7-22 [facility]2016-02-12 19:00:00 Test Item Value Reference Range Interpretation Comments Potassium Lvl (test code = Potassium 3.6 3.5-5.1 Lvl) [facility]2016-02-12 19:00:00 Test Item Value Reference Range Interpretation Comments Chloride Lvl (test code = Chloride Lvl) 107 95-109 [facility] [id number] 19:00:00 Test Item Value Reference Range Interpretation Comments eGFR (test code = eGFR) 83 [facility]2016-02-12 19:00:00 Test Item Value Reference Range Interpretation Comments Creatinine Lvl (test code = Creatinine 0.82 0.50-1.40 Lvl) [facility]2016-02-12 19:00:00 Test Item Value Reference Range Interpretation Comments Glucose Lvl (test code = Glucose Lvl) 97 70-99 [facility]kpxmlxPEDLLEAEEL6730-64-22 19:00:00 Test Item Value Reference Range Interpretation Comments Basophils # (test code 0.0 See_Comment [Aut omated message] The = Basophils #) system which generated this result tra nsmitted reference range : <=0.2. The reference r xu was not used to int erpret this result as normal/abnormal . [facility]FefzydfMDLSLJTUAO2611-74-61 19:00:00 Test Item Value Reference Range Interpretation Comments Lymphocytes (test code = Lymphocytes) 29.6 20.0-40.0 [facility]ZpopirrWCCEIRZSDS3981-30-26 19:00:00 Test Item Value Reference Range Interpretation Comments Monocytes # (test code 0.5 See_Comment [Aut omated message] The = Monocytes #) system which generated this result tra nsmitted reference range : <=0.8. The reference r xu was not used to int erpret this result as normal/abnormal . [facility]SbuuslxMPRGSOXFOY2679-06-64 19:00:00 Test Item Value Reference Range Interpretation Comments Eosinophils # (test code 0.0 See_Comment [A utomated message] The = Eosinophils #) system wh h generated this result tra nsmitted reference range : <=0.5. The reference r xu was not used to int erpret this result as normal/abnormal . [facility]EouhwqqLVIYOCSEAL2750-72-79 19:00:00 Test Item Value Reference Range Interpretation Comments Basophils (test code = 0.2 See_Comment [Aut omated message] The Basophils) system which ge nerated this result tra nsmitted reference range : <=1.0. The reference r xu was not used to int erpret this result as normal/abnormal . [facility]SblcilkRSLAKZCMMP0788-65-30 19:00:00 Test Item Value Reference Range Interpretation Comments Lymphocytes # (test code = Lymphocytes 1.7 1.0-5.5 #) [facility]NozapnsJDEWRRWZCO1936-16-78 19:00:00 Test Item Value Reference Range Interpretation Comments Segs-Bands # (test code = Segs-Bands #) 3.7 1.5-8.1 [facility]DpjmdkxINVTPFSSRG1388-92-03 19:00:00 Test Item Value Reference Range Interpretation Comments Monocytes (test code = Monocytes) 7.7 2.0-12.0 [facility]CjwocjqLCCHAIPWQT6028-75-53 19:00:00 Test Item Value Reference Range Interpretation Comments Eosinophils (test code = 0.0 See_Comment [A utomated message] The Eosinophils) system which ge nerated this result tra nsmitted reference range : <=4.0. The reference r xu was not used to int erpret this result as normal/abnormal . [facility]QskgetiURXOWWLOPN7872-01-18 19:00:00 Test Item Value Reference Range Interpretation Comments Segs (test code = Segs) 62.5 45.0-75.0 [facility]PxmzdkpFQXNGBNTIC0448-48-59 19:00:00 Test Item Value Reference Range Interpretation Comments RDW (test code = RDW) 12.5 11.5-14.5 [facility]ZillsltPBJMBSDFHW7527-66-77 19:00:00 Test Item Value Reference Range Interpretation Comments MCHC (test code = MCHC) 32.8 32.0-36.0 [facility]XnuauitPKLGDLIDGC4519-57-61 19:00:00 Test Item Value Reference Range Interpretation Comments MCH (test code = MCH) 28.0 pg 27.0-31.0 [facility]YkbjbejGNEXFDMCHO3121-61-45 19:00:00 Test Item Value Reference Range Interpretation Comments MCV (test code = MCV) 85.3 80.0-98.0 [facility]qwchkmZFCVMEEIMY6819-26-80 19:00:00 Test Item Value Reference Range Interpretation Comments Hct (test code = Hct) 36.6 36.0-48.0 [facility]MdtzcqxHCPSNPWEIA6732-21-05 19:00:00 Test Item Value Reference Range Interpretation Comments Hgb (test code = Hgb) 12.0 12.0-16.0 [facility]AawhrwfGOWRSKKWML3322-48-59 19:00:00 Test Item Value Reference Range Interpretation Comments WBC (test code = WBC) 5.9 3.7-10.4 [facility]WwpklwaFEBJECMIEE8974-97-56 19:00:00 Test Item Value Reference Range Interpretation Comments RBC (test code = RBC) 4.29 4.20-5.40 [facility]VbgbkbpIUGSSUKHJN6869-25-37 19:00:00 Test Item Value Reference Range Interpretation Comments MPV (test code = MPV) 8.5 7.4-10.4 [facility]KgrvyqeMNEBNVPFGT6064-09-76 19:00:00 Test Item Value Reference Range Interpretation Comments Platelet (test code = Platelet) 192 133-450 [facility] AND [id number] 19:00:00 Test Item Value Reference Range Interpretation Comments UA Urobilinogen (test code = UA <=1.0 mg/dL 0.1-1.0 Urobilinogen) [facility] AND [id number] 19:00:00 Test Item Value Reference Range Interpretation Comments UA Ketones (test code = UA Ketones) Negative [facility] AND [id number] 19:00:00 Test Item Value Reference Range Interpretation Comments UA RBC (test code = no gt See_Comment [Automa yue message] The UA RBC) system which ge nerated this result transmit yue reference range : <=2. The reference range was not used to interpr et this result as sera l/abnormal. [facility] AND [id number] 19:00:00 Test Item Value Reference Range Interpretation Comments UA Color (test code = Light Yellow UA Color) *NA*(06/21/15 1:00 PM) [facility] AND [id number] 19:00:00 Test Item Value Reference Range Interpretation Comments UA Turbidity (test code = Clear (06/21/15 1:00 UA Turbidity) PM) [facility] AND [id number] 19:00:00 Test Item Value Reference Range Interpretation Comments UA Sq Epi (test code = UA Sq Epi) Few /LPF [facility] AND [id number] 19:00:00 Test Item Value Reference Range Interpretation Comments UA WBC (test code = 1 See_Comment [Automa yue message] The UA WBC) system which ge nerated this result transmit yue reference range : <=5. The reference range was not used to interpr et this result as sera l/abnormal. [facility] AND [id number] 19:00:00 Test Item Value Reference Range Interpretation Comments UA Blood (test code = Negative (06/21/15 1:00 UA Blood) PM) [facility] AND [id number] 19:00:00 Test Item Value Reference Range Interpretation Comments UA Nitrite (test code Negative (06/21/15 1:00 = UA Nitrite) PM) [facility] AND [id number] 19:00:00 Test Item Value Reference Range Interpretation Comments UA Leuk Est (test Negative (06/21/15 1:00 code = UA Leuk Est) PM) [facility] AND [id number] 19:00:00 Test Item Value Reference Range Interpretation Comments UA Glucose (test code = UA Negative mg/dL Glucose) [facility] AND [id number] 19:00:00 Test Item Value Reference Range Interpretation Comments UA Bili (test code = Negative *NA*(06/21/15 UA Bili) 1:00 PM) [facility] AND [id number] 19:00:00 Test Item Value Reference Range Interpretation Comments UA Spec Grav (test code = UA Spec Grav) 1.011 [facility] AND [id number] 19:00:00 Test Item Value Reference Range Interpretation Comments UA pH (test code = UA pH) 8.0 5.0-8.0 [facility] AND [id number] 19:00:00 Test Item Value Reference Range Interpretation Comments UA Protein (test code = UA Negative mg/dL Protein) [facility] Notes Date/Time Note Provider Source 2022-12-23 Addended by: WANDA SHOEMAKER RN on: 12/23/2022 10:02 AM Wanda Shoemaker [facility] 10:02:47-00:00 RN Modules accepted: Orders T 2022-12-21 Formatting of this note might be differe nt from the original. Triston Winters RN [facility] 11:28:50-00:00 Images from the original note were not included. Timothy Mckoy MD P Ang Db Endocrine Nurse; P Endocrine Nurse Ms Foreman needs to decrease LT 4 to 175 mcg daily as labs suggest that she is overreplaced. Pharmacy of choice. MyChart message sent to patient Electronically signed by Triston Winters RN a t 12/21/2022 11:32 AM CDT 2022-12-18 Formatting of this note is different from the or iginal. [facility] 16:45:00-00:00 Images from the original note were not included. Venipuncture collection perf ormed by clean technique on the left anticubitus. Total of 1 attempts were made. Slight pressure and a bandage/dressing were applied to the site(s). The patient experienced n o complications. The followi ng specimens were processed according to instructions and sent to [facility] laboratories per lab order on TODAY: LT BLUE SST 1-RST RED LAV PPT DK GREEN (LiHep) DK GREEN (SodH) CAT DK BLUE (K2) DK BLUE (S) ACD Blood Culture NIPT/NTD Electronically signed by Fabienne Moreno at 0 12/18/2022 4:48 PM CDT 2022-12-11 Formatting of this note might be differe nt from the original. Lavern Caro RN [facility] 17:04:14-00:00 See mychart 2022-12-11 Formatting of this note might be differe nt from the original. Laure Aquino MA [facility] 17:01:41-00:00 Spoke with patient she verba lized understanding with no further questions. Electronically signed by Laure Aquino MA a t 12/11/2022 5:02 PM CDT 2022-12-03 Formatting of this note is different from the or iginal. [facility] 15:45:00-00:00 Images from the original note were not included. Venipuncture collection perf ormed by clean technique on the left anticubitus. Total of 1 attempts were made. Slight pressure and a bandage/dressing were applied to the site(s). The patient experienced n o complications. The followi ng specimens were processed according to instructions and sent to [facility] laboratories per lab order on 12/03/2022 : LT BLUE SST 1 RED LAV PPT DK GREEN (LiHep) DK GREEN (SodH) CAT DK BLUE (K2) DK BLUE (S) ACD Blood Culture NIPT/NTD Electronically signed by Nisreen Melendez at 2022 3:57 PM CDT 2015-09-26 Examination: Ext Lower Arterial Doppler bilat [facility] 13:20:44-00:00 Provided History: Pain, Limb IMPRESSION: 1. No [...] is evident that would otherwise suggest pseudoaneurysm. 2015-09-26 Examination: Ext Lower Arterial Doppler bilat [facility] 13:20:44-00:00 Provided History: Pain, Limb IMPRESSION: 1. No [...] is evident that would otherwise suggest pseudoaneurysm. 2015-09-26 Examination: Ext Lower Arterial Doppler bilat [facility] 13::44-00:00 Provided History: Pain, Limb IMPRESSION: 1. No [...] is evident that would otherwise suggest pseudoaneurysm. 2015-09-26 Examination: Ext Lower Arterial Doppler bilat [facility] 13::44-00:00 Provided History: Pain, Limb IMPRESSION: 1. No [...] is evident that would otherwise suggest pseudoaneurysm. 2015-09-26 Examination: Ext Lower Arterial Doppler bilat [facility] 13:20:44-00:00 Provided History: Pain, Limb IMPRESSION: 1. No [...] is evident that would otherwise suggest pseudoaneurysm. 2015-09-26 Examination: Ext Lower Arterial Doppler bilat [facility] 13:20:44-00:00 Provided History: Pain, Limb IMPRESSION: 1. No [...] is evident that would otherwise suggest pseudoaneurysm. 2015-09-26 Examination: Ext Lower Arterial Doppler bilat US [facility] 13:20:44-00:00 Provided History: Pain, Limb IMPRESSION: 1. No [...] is evident that would otherwise suggest pseudoaneurysm. 2015-09-26 Examination: Ext Lower Arterial Doppler bilat [facility] 13:20:44-00:00 Provided History: Pain, Limb IMPRESSION: 1. No [...] evident that would otherwise suggest pseudoaneurysm. 2015-09-25 Exam: Two-view chest x-ray [facility] 16:30:00-00:00 Reason for Exam: Chest pain Comparison Exam: Chest x-ray 08/07/2015 Discussion: Cardiomediastinal silhouette is within normal limits. Both hemidiaphragms well visualized. No pulmonary edema or pleural effusions. No focal lung consolidations. Trachea is midline. No acute bony abnormalities. Impression: 1. No acute cardiopulmonary abnormalities. 2015-09-25 CLINICAL HISTORY:Headache with Dizziness and Gid diness. [facility] 16:30:00-00:00 AGE: 55 years GENDER: Female TECHNIQUE: Axial [...] well pneumatized. IMPRESSION: No acute intracranial findings. 2015-09-25 Exam: Two-view chest x-ray [facility] 16:30:00-:00 Reason for Exam: Chest pain Comparison Exam: Chest x-ray 08/07/2015 Discussion: Cardiomediastinal silhouette is within normal limits. Both hemidiaphragms well visualized. No pulmonary edema or pleural effusions. No focal lung consolidations. Trachea is midline. No acute bony abnormalities. Impression: 1. No acute cardiopulmonary abnormalities. 2015-09-25 CLINICAL HISTORY:Headache with Dizziness and Gid diness. [facility] 16:30:00-00:00 AGE: 55 years GENDER: Female TECHNIQUE: Axial [...] well pneumatized. IMPRESSION: No acute intracranial findings. 2015-09-25 Exam: Two-view chest x-ray [facility] 16:30:00-00:00 Reason for Exam: Chest pain Comparison Exam: Chest x-ray 08/07/2015 Discussion: Cardiomediastinal silhouette is within normal limits. Both hemidiaphragms well visualized. No pulmonary edema or pleural effusions. No focal lung consolidations. Trachea is midline. No acute bony abnormalities. Impression: 1. No acute cardiopulmonary abnormalities. 2015-09-25 CLINICAL HISTORY:Headache with Dizziness and Gid diness. [facility] 16:30:00-00:00 AGE: 55 years GENDER: Female TECHNIQUE: Axial scans of e brain without contrast including multiplanar computer-generated [...] well pneumatized. IMPRESSION: No acute intracranial findings. 2015-09-25 Exam: Two-view chest x-ray [facility] 16:30:00-00:00 Reason for Exam: Chest pain Comparison Exam: Chest x-ray 08/07/2015 Discussion: Cardiomediastinal silhouette is within normal limits. Both hemidiaphragms well visualized. No pulmonary edema or pleural effusions. No focal lung consolidations. Trachea is midline. No acute bony abnormalities. Impression: 1. No acute cardiopulmonary abnormalities. 2015-09-25 CLINICAL HISTORY:Headache with Dizziness and Gid diness. [facility] 16:30:00-00:00 AGE: 55 years GENDER: Female TECHNIQUE: Axial scans of e brain without contrast including multiplanar computer-generated [...] well pneumatized. IMPRESSION: No acute intracranial findings. 2015-09-25 Exam: Two-view chest x-ray [facility] 16:30:00-00:00 Reason for Exam: Chest pain Comparison Exam: Chest x-ray 08/07/2015 Discussion: Cardiomediastinal silhouette is within normal limits. Both hemidiaphragms well visualized. No pulmonary edema or pleural effusions. No focal lung consolidations. Trachea is midline. No acute bony abnormalities. Impression: 1. No acute cardiopulmonary abnormalities. 2015-09-25 CLINICAL HISTORY:Headache with Dizziness and Gid diness. [facility] 16:30:00-00:00 AGE: 55 years GENDER: Female TECHNIQUE: Axial scans of e brain without contrast including multiplanar computer-generated [...] well pneumatized. IMPRESSION: No acute intracranial findings. 2015-09-25 Exam: Two-view chest x-ray [facility] 16:30:00-:00 Reason for Exam: Chest pain Comparison Exam: Chest x-ray 08/07/2015 Discussion: Cardiomediastinal silhouette is within normal limits. Both hemidiaphragms well visualized. No pulmonary edema or pleural effusions. No focal lung consolidations. Trachea is midline. No acute bony abnormalities. Impression: 1. No acute cardiopulmonary abnormalities. 2015-09-25 CLINICAL HISTORY:Headache with Dizziness and Gid diness. [facility] 16:30:00-00:00 AGE: 55 years GENDER: Female TECHNIQUE: Axial scans of e brain without contrast including multiplanar computer-generated [...] well pneumatized. IMPRESSION: No acute intracranial findings. 2015-09-25 Exam: Two-view chest x-ray [facility] 16:30:00-00:00 Reason for Exam: Chest pain Comparison Exam: Chest x-ray 08/07/2015 Discussion: Cardiomediastinal silhouette is within normal limits. Both hemidiaphragms well visualized. No pulmonary edema or pleural effusions. No focal lung consolidations. Trachea is midline. No acute bony abnormalities. Impression: 1. No acute cardiopulmonary abnormalities. 2015-09-25 CLINICAL HISTORY:Headache with Dizziness and Gid diness. [facility] 16:30:00-00:00 AGE: 55 years GENDER: Female TECHNIQUE: Axial scans of e brain without contrast including multiplanar computer-generated [...] well pneumatized. IMPRESSION: No acute intracranial findings. 2015-09-25 Exam: Two-view chest x-ray [facility] 16:30:00-:00 Reason for Exam: Chest pain Comparison Exam: Chest x-ray 08/07/2015 Discussion: Cardiomediastinal silhouette is within normal limits. Both hemidiaphragms well visualized. No pulmonary edema or pleural effusions. No focal lung consolidations. Trachea is midline. No acute bony abnormalities. Impression: 1. No acute cardiopulmonary abnormalities. 2015-09-25 CLINICAL HISTORY:Headache with Dizziness and Gid diness. [facility] 16:30:00-00:00 AGE: 55 years GENDER: Female TECHNIQUE: Axial scans of e brain without contrast including multiplanar computer-generated [...] pneumatized. IMPRESSION: No acute intracranial findings. 2015-09-11 EXAM: MRI THORACIC SPINE WITH AND WITHOUT CONTRA [facility] 18:45:00-00:00 DATE: 09/11/2015 INDICATION: G81.91 Hemiplegia, unspecified affec [...] No canal stenosis or foraminal narrowing 2015-09-11 EXAM: MRI LUMBAR SPINE WITHOUT AND WITH CONTRAST [facility] 18:45:00-00:00 DATE: 09/11/2015 at 1733 hours INDICATION: G81.91 [...] cyst. Retroaorti c left renal vein. 2015-09-11 EXAM: MRI THORACIC SPINE WITH AND WITHOUT CONTRA [facility] 18:45:00-00:00 DATE: 09/11/2015 INDICATION: G81.91 Hemiplegia, unspecified affec [...] No canal stenosis or foraminal narrowing 2015-09-11 EXAM: MRI LUMBAR SPINE WITHOUT AND WITH CONTRAST [facility] 18:45:00-00:00 DATE: 09/11/2015 at 1733 hours INDICATION: G81.91 [...] cyst. Retroaorti c left renal vein. 2015-09-11 EXAM: MRI THORACIC SPINE WITH AND WITHOUT CONTRA [facility] 18:45:00-00:00 DATE: 09/11/2015 INDICATION: G81.91 Hemiplegia, unspecified affec [...] No canal stenosis or foraminal narrowing 2015-09-11 EXAM: MRI LUMBAR SPINE WITHOUT AND WITH CONTRAST [facility] 18:45:00-00:00 DATE: 09/11/2015 at 1733 hours INDICATION: G81.91 [...] cyst. Retroaorti c left renal vein. 2015-09-11 EXAM: MRI THORACIC SPINE WITH AND WITHOUT CONTRA [facility] 18:45:00-00:00 DATE: 09/11/2015 INDICATION: G81.91 Hemiplegia, unspecified affec [...] No canal stenosis or foraminal narrowing 2015-09-11 EXAM: MRI LUMBAR SPINE WITHOUT AND WITH CONTRAST [facility] 18:45:00-00:00 DATE: 09/11/2015 at 1733 hours INDICATION: G81.91 [...] cyst. Retroaorti c left renal vein. 2015-09-11 EXAM: MRI THORACIC SPINE WITH AND WITHOUT CONTRA [facility] 18:45:00-00:00 DATE: 09/11/2015 INDICATION: G81.91 Hemiplegia, unspecified affec [...] No canal stenosis or foraminal narrowing 2015-09-11 EXAM: MRI LUMBAR SPINE WITHOUT AND WITH CONTRAST [facility] 18:45:00-00:00 DATE: 09/11/2015 at 1733 hours INDICATION: G81.91 [...] cyst. Retroaorti c left renal vein. 2015-09-11 EXAM: MRI THORACIC SPINE WITH AND WITHOUT CONTRA [facility] 18:45:00-00:00 DATE: 09/11/2015 INDICATION: G81.91 Hemiplegia, unspecified affec [...] No canal stenosis or foraminal narrowing 2015-09-11 EXAM: MRI LUMBAR SPINE WITHOUT AND WITH CONTRAST [facility] 18:45:00-00:00 DATE: 09/11/2015 at 1733 hours INDICATION: G81.91 [...] cyst. Retroaorti c left renal vein. 2015-09-11 EXAM: MRI THORACIC SPINE WITH AND WITHOUT CONTRA [facility] 18:45:00-00:00 DATE: 09/11/2015 INDICATION: G81.91 Hemiplegia, unspecified affec [...] No canal stenosis or foraminal narrowing 2015-09-11 EXAM: MRI LUMBAR SPINE WITHOUT AND WITH CONTRAST [facility] 18:45:00-00:00 DATE: 09/11/2015 at 1733 hours INDICATION: G81.91 [...] cyst. Retroaorti c left renal vein. 2015-09-11 EXAM: MRI THORACIC SPINE WITH AND WITHOUT CONTRA ST [facility] [place] 18:45:00-00:00 DATE: 09/11/2015 INDICATION: G81.91 Hemiplegia, unspecified affec [...] No canal stenosis or foraminal narrowing 2015-09-11 EXAM: MRI LUMBAR SPINE WITHOUT AND WITH CONTRAST [facility] 18:45:00-00:00 DATE: 09/11/2015 at 1733 hours INDICATION: G81.91 [...] cyst. Retroaorti c left renal vein. 2015-09-11 EXAM: MRI CERVICAL SPINE WITH AND WITHOUT CONTRA [facility] 17:00:00-00:00 DATE: 09/11/2015 4:05 PM CDT INDICATION: 55 [...] C4-C5 and C5-C6 as detailed above. 2015-09-11 EXAM: MRI CERVICAL SPINE WITH AND WITHOUT CONTRA [facility] 17:00:00-00:00 DATE: 09/11/2015 4:05 PM CDT INDICATION: 55 [...] C4-C5 and C5-C6 as detailed above. 2015-09-11 EXAM: MRI CERVICAL SPINE WITH AND WITHOUT CONTRA [facility] 17:00:00-00:00 DATE: 09/11/2015 4:05 PM CDT INDICATION: 55 [...] C4-C5 and C5-C6 as detailed above. 2015-09-11 EXAM: MRI CERVICAL SPINE WITH AND WITHOUT CONTRA [facility] 17:00:00-00:00 DATE: 09/11/2015 4:05 PM CDT INDICATION: 55 [...] C4-C5 and C5-C6 as detailed above. 2015-09-11 EXAM: MRI CERVICAL SPINE WITH AND WITHOUT CONTRA [facility] 17:00:00-00:00 DATE: 09/11/2015 4:05 PM CDT INDICATION: 55 [...] C4-C5 and C5-C6 as detailed above. 2015-09-11 EXAM: MRI CERVICAL SPINE WITH AND WITHOUT CONTRA [facility] 17:00:00-00:00 DATE: 09/11/2015 4:05 PM CDT INDICATION: 55 [...] C4-C5 and C5-C6 as detailed above. 2015-09-11 EXAM: MRI CERVICAL SPINE WITH AND WITHOUT CONTRA [facility] 17:00:00-00:00 DATE: 09/11/2015 4:05 PM CDT INDICATION: 55 [...] C4-C5 and C5-C6 as detailed above. 2015-09-11 EXAM: MRI CERVICAL SPINE WITH AND WITHOUT CONTRA [facility] 17:00:00-00:00 DATE: 09/11/2015 4:05 PM CDT INDICATION: 55 [...] C4-C5 and C5-C6 as detailed above. 2015-09-11 EXAM: MRI BRAIN WITH AND WITHOUT CONTRAST [facility] 16:15:00-00:00 DATE: 09/11/2015 INDICATION: G81.91 Hemiplegia, unspecified affec [...] sinus. Unremarkable MRI exam of the brain. 2015-09-11 EXAM: MRI BRAIN WITH AND WITHOUT CONTRAST [facility] 16:15:00-00:00 DATE: 09/11/2015 INDICATION: G81.91 Hemiplegia, unspecified affec [...] sinus. Unremarkable MRI exam of the brain. 2015-09-11 EXAM: MRI BRAIN WITH AND WITHOUT CONTRAST [facility] 16:15:00-00:00 DATE: 09/11/2015 INDICATION: G81.91 Hemiplegia, unspecified affec [...] sinus. Unremarkable MRI exam of the brain. 2015-09-11 EXAM: MRI BRAIN WITH AND WITHOUT CONTRAST [facility] 16:15:00-00:00 DATE: 09/11/2015 INDICATION: G81.91 Hemiplegia, unspecified affec [...] sinus. Unremarkable MRI exam of the brain. 2015-09-11 EXAM: MRI BRAIN WITH AND WITHOUT CONTRAST [facility] 16:15:00-00:00 DATE: 09/11/2015 INDICATION: G81.91 Hemiplegia, unspecified affec [...] sinus. Unremarkable MRI exam of the brain. 2015-09-11 EXAM: MRI BRAIN WITH AND WITHOUT CONTRAST [facility] 16:15:00-00:00 DATE: 09/11/2015 INDICATION: G81.91 Hemiplegia, unspecified affec [...] sinus. Unremarkable MRI exam of the brain. 2015-09-11 EXAM: MRI BRAIN WITH AND WITHOUT CONTRAST [facility] 16:15:00-00:00 DATE: 09/11/2015 INDICATION: G81.91 Hemiplegia, unspecified affec [...] sinus. Unremarkable MRI exam of the brain. 2015-09-11 EXAM: MRI BRAIN WITH AND WITHOUT CONTRAST [facility] [place] 16:15:00-00:00 DATE: 09/11/2015 INDICATION: G81.91 Hemiplegia, unspecified affec [...] Unremarkable MRI exam of the brain. 2015-08-08 CLINICAL HISTORY : weakness , Other- See Note to Radiologist [facility] 04:31:26-00:00 EXAM : Bilateral Carotid Duplex 08/07/2015 6:12 [...] plaque or narr owing on grayscale images. 2015-08-08 CLINICAL HISTORY : weakness , Other- See Note to Radiologist [facility] 04:31:26-00:00 EXAM : Bilateral Carotid Duplex 08/07/2015 6:12 [...] plaque or narr owing on grayscale images. 2015-08-08 CLINICAL HISTORY : weakness , Other- See Note to Radiologist [facility] 04:31:26-00:00 EXAM : Bilateral Carotid Duplex 08/07/2015 6:12 [...] plaque or narr owing on grayscale images. 2015-08-08 CLINICAL HISTORY : weakness , Other- See Note to Radiologist [facility] 04:31:26-00:00 EXAM : Bilateral Carotid Duplex 08/07/2015 6:12 [...] plaque or narr owing on grayscale images. 2015-08-08 CLINICAL HISTORY : weakness , Other- See Note to Radiologist [facility] 04:31:26-00:00 EXAM : Bilateral Carotid Duplex 08/07/2015 6:12 [...] plaque or narr owing on grayscale images. 2015-08-08 CLINICAL HISTORY : weakness , Other- See Note to Radiologist [facility] 04:31:26-00:00 EXAM : Bilateral Carotid Duplex 08/07/2015 6:12 [...] plaque or narr owing on grayscale images. 2015-08-08 CLINICAL HISTORY : weakness , Other- See Note to Radiologist [facility] 04:31:26-00:00 EXAM : Bilateral Carotid Duplex 08/07/2015 6:12 [...] plaque or narr owing on grayscale images. 2015-08-08 CLINICAL HISTORY : weakness , Other- See Note to Radiologist [facility] 04:31:26-00:00 EXAM : Bilateral Carotid Duplex 08/07/2015 6:12 [...] or narr owing on grayscale images. 2015-08-07 EXAMINATION: Chest, 1 view [facility] 16:28:18-00:00 HISTORY: Dizziness; FINDINGS: Single frontal vie w of the chest is submitted for interpretation and compared to 07/06/2015. The patient is rotated to th e right. The cardiomediastinal silhouette is within normal limits. There are no pleural effusions or pneumothorax. The lungs are clear without focal pneumonic consolidation or pulmonary edema. IMPRESSION: 1. No radiographic evidence of acute cardiopulmo nary disease. 2015-08-07 EXAMINATION: Chest, 1 view [facility] 16:28:18-00:00 HISTORY: Dizziness; FINDINGS: Single frontal vie w of the chest is submitted for interpretation and compared to 07/06/2015. The patient is rotated to th e right. The cardiomediastinal silhouette is within normal limits. There are no pleural effusions or pneumothorax. The lungs are clear without focal pneumonic consolidation or pulmonary edema. IMPRESSION: 1. No radiographic evidence of acute cardiopulmo nary disease. 2015-08-07 EXAMINATION: Chest, 1 view [facility] 16:28:18-00:00 HISTORY: Dizziness; FINDINGS: Single frontal vie w of the chest is submitted for interpretation and compared to 07/06/2015. The patient is rotated to th e right. The cardiomediastinal silhouette is within normal limits. There are no pleural effusions or pneumothorax. The lungs are clear without focal pneumonic consolidation or pulmonary edema. IMPRESSION: 1. No radiographic evidence of acute cardiopulmo nary disease. 2015-08-07 EXAMINATION: Chest, 1 view [facility] 16:28:18-00:00 HISTORY: Dizziness; FINDINGS: Single frontal vie w of the chest is submitted for interpretation and compared to 07/06/2015. The patient is rotated to th e right. The cardiomediastinal silhouette is within normal limits. There are no pleural effusions or pneumothorax. The lungs are clear without focal pneumonic consolidation or pulmonary edema. IMPRESSION: 1. No radiographic evidence of acute cardiopulmo nary disease. 2015-08-07 EXAMINATION: Chest, 1 view [facility] 16:28:18-00:00 HISTORY: Dizziness; FINDINGS: Single frontal vie w of the chest is submitted for interpretation and compared to 07/06/2015. The patient is rotated to th e right. The cardiomediastinal silhouette is within normal limits. There are no pleural effusions or pneumothorax. The lungs are clear without focal pneumonic consolidation or pulmonary edema. IMPRESSION: 1. No radiographic evidence of acute cardiopulmo nary disease. 2015-08-07 EXAMINATION: Chest, 1 view [facility] 16:28:18-00:00 HISTORY: Dizziness; FINDINGS: Single frontal vie w of the chest is submitted for interpretation and compared to 07/06/2015. The patient is rotated to th e right. The cardiomediastinal silhouette is within normal limits. There are no pleural effusions or pneumothorax. The lungs are clear without focal pneumonic consolidation or pulmonary edema. IMPRESSION: 1. No radiographic evidence of acute cardiopulmo nary disease. 2015-08-07 EXAMINATION: Chest, 1 view [facility] 16:28:18-00:00 HISTORY: Dizziness; FINDINGS: Single frontal vie w of the chest is submitted for interpretation and compared to 07/06/2015. The patient is rotated to th e right. The cardiomediastinal silhouette is within normal limits. There are no pleural effusions or pneumothorax. The lungs are clear without focal pneumonic consolidation or pulmonary edema. IMPRESSION: 1. No radiographic evidence of acute cardiopulmo nary disease. 2015-08-07 EXAMINATION: Chest, 1 view [facility] 16:28:18-00:00 HISTORY: Dizziness; FINDINGS: Single frontal vie w of the chest is submitted for interpretation and compared to 07/06/2015. The patient is rotated to th e right. The cardiomediastinal silhouette is within normal limits. There are no pleural effusions or pneumothorax. The lungs are clear without focal pneumonic consolidation or pulmonary edema. IMPRESSION: 1. No radiographic evidence of acute cardiopulmo nary disease. 2015-08-07 CT BRAIN WITHOUT CONTRAST [facility] 16:03:53-00:00 COMPARISON: 06/21/2015 CT exam. COMMENTS: Coronal and [...] sinusitis. 4. Bilateral frontal lobe mild atrophy. 2015-08-07 CT BRAIN WITHOUT CONTRAST [facility] 16:03:53-00:00 COMPARISON: 06/21/2015 CT exam. COMMENTS: Coronal and [...] sinusitis. 4. Bilateral frontal lobe mild atrophy. 2015-08-07 CT BRAIN WITHOUT CONTRAST [facility] 16::53-00:00 COMPARISON: 06/21/2015 CT exam. COMMENTS: Coronal and [...] sinusitis. 4. Bilateral frontal lobe mild atrophy. 2015-08-07 CT BRAIN WITHOUT CONTRAST [facility] 16:03:53-00:00 COMPARISON: 06/21/2015 CT exam. COMMENTS: Coronal and [...] sinusitis. 4. Bilateral frontal lobe mild atrophy. 2015-08-07 CT BRAIN WITHOUT CONTRAST [facility] 16:03:53-00:00 COMPARISON: 06/21/2015 CT exam. COMMENTS: Coronal and [...] sinusitis. 4. Bilateral frontal lobe mild atrophy. 2015-08-07 CT BRAIN WITHOUT CONTRAST [facility] 16:03:53-00:00 COMPARISON: 06/21/2015 CT exam. COMMENTS: Coronal and [...] sinusitis. 4. Bilateral frontal lobe mild atrophy. 2015-08-07 CT BRAIN WITHOUT CONTRAST [facility] 16:03:53-00:00 COMPARISON: 06/21/2015 CT exam. COMMENTS: Coronal and [...] sinusitis. 4. Bilateral frontal lobe mild atrophy. 2015-08-07 CT BRAIN WITHOUT CONTRAST [facility] 16:03:53-00:00 COMPARISON: 06/21/2015 CT exam. COMMENTS: Coronal and [...] 4. Bilateral frontal lobe mild atrophy. 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 CLINICAL INDICATION: Chest pain TECHNIQUE: SINGLE FRONTAL VIEW OF THE CHEST COMPARISON: 06/21/2015 chest x-ray FINDINGS: The lungs are well -inflated and clear. Heart and mediastinal contours are normal. Bony thorax is unremarkable. IMPRESSION: No acute intrath oracic process or worrisome change compared to previous study 2015-07-06 EXAM: [facility] CHEST X-RAY [facility] 16:26:36-00:00 DATE: 07/06/2015 4:17 PM DESK TOP PUBLISHER . CLINICAL INDICATION: Chest pain TECHNIQUE: SINGLE FRONTAL VIEW OF THE CHEST COMPARISON: 06/21/2015 chest x-ray FINDINGS: The lungs are well -inflated and clear. Heart and mediastinal contours are normal. Bony thorax is unremarkable. IMPRESSION: No acute intrath oracic process or worrisome change compared to previous study 2015-07-06 EXAM: [facility] CHEST X-RAY [facility] 16:26:36-00:00 DATE: 07/06/2015 4:17 PM DESK TOP PUBLISHER . CLINICAL INDICATION: Chest pain TECHNIQUE: SINGLE FRONTAL VIEW OF THE CHEST COMPARISON: 06/21/2015 chest x-ray FINDINGS: The lungs are well -inflated and clear. Heart and mediastinal contours are normal. Bony thorax is unremarkable. IMPRESSION: No acute intrath oracic process or worrisome change compared to previous study 2015-07-06 EXAM: [facility] CHEST X-RAY [facility] 16:26:36-00:00 DATE: 07/06/2015 4:17 PM DESK TOP PUBLISHER . CLINICAL INDICATION: Chest pain TECHNIQUE: SINGLE FRONTAL VIEW OF THE CHEST COMPARISON: 06/21/2015 chest x-ray FINDINGS: The lungs are well -inflated and clear. Heart and mediastinal contours are normal. Bony thorax is unremarkable. IMPRESSION: No acute intrath oracic process or worrisome change compared to previous study 2015-07-06 EXAM: [facility] CHEST X-RAY [facility] 16:26:36-00:00 DATE: 07/06/2015 4:17 PM DESK TOP PUBLISHER . CLINICAL INDICATION: Chest pain TECHNIQUE: SINGLE FRONTAL VIEW OF THE CHEST COMPARISON: 06/21/2015 chest x-ray FINDINGS: The lungs are well -inflated and clear. Heart and mediastinal contours are normal. Bony thorax is unremarkable. IMPRESSION: No acute intrath oracic process or worrisome change compared to previous study 2015-07-06 EXAM: [facility] CHEST X-RAY [facility] 16:26:36-00:00 DATE: 07/06/2015 4:17 PM DESK TOP PUBLISHER . CLINICAL INDICATION: Chest pain TECHNIQUE: SINGLE FRONTAL VIEW OF THE CHEST COMPARISON: 06/21/2015 chest x-ray FINDINGS: The lungs are well -inflated and clear. Heart and mediastinal contours are normal. Bony thorax is unremarkable. IMPRESSION: No acute intrath oracic process or worrisome change compared to previous study 2015-07-06 EXAM: AP CHEST X-RAY [facility] 16:26:36-00:00 DATE: 07/06/2015 4:17 PM DESK TOP PUBLISHER . CLINICAL INDICATION: Chest pain TECHNIQUE: SINGLE FRONTAL VIEW OF THE CHEST COMPARISON: 06/21/2015 chest x-ray FINDINGS: The lungs are well -inflated and clear. Heart and mediastinal contours are normal. Bony thorax is unremarkable. IMPRESSION: No acute intrath oracic process or worrisome change compared to previous study 2015-07-06 EXAM: AP CHEST X-RAY [facility] [place] [facility] 16:26:36-00:00 DATE: 07/06/2015 4:17 PM DESK TOP PUBLISHER . CLINICAL INDICATION: Chest pain TECHNIQUE: SINGLE FRONTAL VIEW OF THE CHEST COMPARISON: 06/21/2015 chest x-ray FINDINGS: The lungs are well -inflated and clear. Heart and mediastinal contours are normal. Bony thorax is unremarkable. IMPRESSION: No acute intrath oracic process or worrisome change compared to previous study 2015-06-21 Exam: CT scan of the brain without contrast [facility] 14:46:00-00:00 Reason for Exam: Headache with Dizziness and [...] No acute intracranial abnormalities appreciat ed. 2015-06-21 Exam: CT scan of the brain without contrast [facility] 14:46:00-00:00 Reason for Exam: Headache with Dizziness and [...] No acute intracranial abnormalities appreciat ed. 2015-06-21 Exam: CT scan of the brain without contrast [facility] 14:46:00-00:00 Reason for Exam: Headache with Dizziness and [...] No acute intracranial abnormalities appreciat ed. 2015-06-21 Exam: CT scan of the brain without contrast [facility] 14:46:00-00:00 Reason for Exam: Headache with Dizziness and [...] opacified. Impression: 1. [facility] 2015-06-[facility] Exam: CT scan of the brain without contrast [facility] 14:46:00-00:00 Reason for Exam: Headache with Dizziness and [...] No acute intracranial abnormalities appreciat ed. 2015-06-21 Exam: CT scan of the brain without contrast [facility] 14:46:00-00:00 Reason for Exam: Headache with Dizziness and [...] No acute intracranial abnormalities appreciat ed. 2015-06-21 Exam: CT scan of the brain without contrast [facility] 14:46:00-00:00 Reason for Exam: Headache with Dizziness and [...] opacified. Impression: 1. [facility] 2015-06-[facility] Exam: CT scan of the brain without contrast [facility] 14:46:00-00:00 Reason for Exam: Headache with Dizziness and [...] No acute intracranial abnormalities appreciat ed. 2015-06-21 CLINICAL HISTORY: Chest pain [facility] 13:34:32-00:00 AGE: 54 years GENDER: Female TECHNIQUE: Single AP, portable chest radiograph, 1 view. COMPARISON: None FINDINGS: The cardiomediastinal silhouette is within sera l limits. No focal airspace or interst itial opacities are seen. No pleural effusions. No pneumothorax. No significant osseous abnormalities are identif ied. IMPRESSION: No acute cardiopulmonary disease. 2015-06-21 CLINICAL HISTORY: Chest pain [facility] 13:34:32-00:00 AGE: 54 years GENDER: Female TECHNIQUE: Single AP, portable chest radiograph, 1 view. COMPARISON: None FINDINGS: The cardiomediastinal silhouette is within sera l limits. No focal airspace or interst itial opacities are seen. No pleural effusions. No pneumothorax. No significant osseous abnormalities are identif ied. IMPRESSION: No acute cardiopulmonary disease. 2015-06-21 CLINICAL HISTORY: Chest pain [facility] 13:34:32-00:00 AGE: 54 years GENDER: Female TECHNIQUE: Single AP, portable chest radiograph, 1 view. COMPARISON: None FINDINGS: The cardiomediastinal silhouette is within sera l limits. No focal airspace or interst itial opacities are seen. No pleural effusions. No pneumothorax. No significant osseous abnormalities are identif ied. IMPRESSION: No acute cardiopulmonary disease. 2015-06-21 CLINICAL HISTORY: Chest pain [facility] 13:34:32-00:00 AGE: 54 years GENDER: Female TECHNIQUE: Single AP, portable chest radiograph, 1 view. COMPARISON: None FINDINGS: The cardiomediastinal silhouette is within sera l limits. No focal airspace or interst itial opacities are seen. No pleural effusions. No pneumothorax. No significant osseous abnormalities are identif ied. IMPRESSION: No acute cardiopulmonary disease. 2015-06-21 CLINICAL HISTORY: Chest pain [facility] 13:34:32-00:00 AGE: 54 years GENDER: Female TECHNIQUE: Single AP, portable chest radiograph, 1 view. COMPARISON: None FINDINGS: The cardiomediastinal silhouette is within sera l limits. No focal airspace or interst itial opacities are seen. No pleural effusions. No pneumothorax. No significant osseous abnormalities are identif ied. IMPRESSION: No acute cardiopulmonary disease. 2015-06-21 CLINICAL HISTORY: Chest pain [facility] 13:34:32-00:00 AGE: 54 years GENDER: Female TECHNIQUE: Single AP, portable chest radiograph, 1 view. COMPARISON: None FINDINGS: The cardiomediastinal silhouette is within sera l limits. No focal airspace or interst itial opacities are seen. No pleural effusions. No pneumothorax. No significant osseous abnormalities are identif ied. IMPRESSION: No acute cardiopulmonary disease. 2015-06-21 CLINICAL HISTORY: Chest pain [facility] 13:34:32-00:00 AGE: 54 years GENDER: Female TECHNIQUE: Single AP, portable chest radiograph, 1 view. COMPARISON: None FINDINGS: The cardiomediastinal silhouette is within sera l limits. No focal airspace or interst itial opacities are seen. No pleural effusions. No pneumothorax. No significant osseous abnormalities are identif ied. IMPRESSION: No acute cardiopulmonary disease. 2015-06-21 CLINICAL HISTORY: Chest pain [facility] 13:34:32-00:00 AGE: 54 years GENDER: Female TECHNIQUE: Single AP, portable chest radiograph, 1 view. COMPARISON: None FINDINGS: The cardiomediastinal silhouette is within sera l limits. No focal airspace or interst itial opacities are seen. No pleural effusions. No pneumothorax. No significant osseous abnormalities are identif ied.
[2023-01-19 11:22] VITALS: BMI 37.8
[2023-01-19] MEDS ORDERED: LABETALOL 20 MG/4ML SYRINGE IV PRN (13:15)
--- NOTE | 2023-01-19 13:20 | P.CNS ---
Date of Consult: 01/19/23 Reason for Consult: Medical management Requesting Physician: Young Mims Chief Complaint: Left knee pain History of Present Illness: Patient is a 62-year-old female with a past medical history significant for hypertension, hyperlipidemia, obesity, bipolar disorder who presents for a planned procedure with her orthopedic surgeon due to longstanding left knee pain secondary to osteoarthritis. Patient reported that pain before procedure was 7/10 in severity and described pain as aching in quality. Patient successfully had a left knee replacement. Patient denies any other signs and symptoms. Symptoms are aggravated or relieved by nothing. Patient currently resting in bed and on a CPM machine. Allergies Penicillins Allergy (Verified 01/19/23 06:02) Hives/Rash Home Medications: Lamotrigine [Lamictal] 100 mg PO DAILY 06/08/20 Escitalopram [Lexapro] 20 mg PO DAILY 01/18/23 Levothyroxine Sodium [Synthroid] 175 mcg PO DAILY 01/18/23 Lurasidone HCl [Latuda] 20 mg PO DAILY 01/18/23 Spironolactone [Aldactone] 25 mg PO DAILY 01/18/23 Trazodone [Desyrel] 25 mg PO BEDTIME 01/18/23 - Past Medical/Surgical History Diabetic: No -: HTN -: High cholestrol -: Rheumatoid arthritis -: depression -: heart catheterization -: left knee tear -: Left total knee replacement - Family History Father History Unknown: Yes Medical History: Lung disease, Diabetes, Cancer, Other (see notes) Notes: lung cancer Mother History Unknown: Yes Medical History: Hypertension, Stroke - Social History Smoking Status: Never smoker Alcohol use: No CD- Drugs: No Caffeine use: Yes Place of Residence: Home Review of Systems General: Unremarkable Eyes: Unremarkable ENT: Unremarkable Respiratory: Unremarkable Cardiovascular: Unremarkable Gastrointestinal: Unremarkable Genitourinary: Unremarkable Musculoskeletal: Other (Left knee pain) Integumentary: Unremarkable Neurological: Unremarkable Lymphatics: Unremarkable Physical Examination Temp Pulse Resp BP Pulse Ox 97 F 66 16 167/78 H 94 01/19/23 12:00 01/19/23 12:00 01/19/23 12:00 01/19/23 12:00 01/19/23 12:00 General: Alert, In no apparent distress, Cooperative HEENT: Atraumatic, PERRLA, Mucous membr. moist/pink, EOMI, Sclerae nonicteric Neck: Supple, 2+ carotid pulse no bruit, No LAD, Without JVD or thyroid abnormality Respiratory: Clear to auscultation bilaterally, Normal air movement Cardiovascular: No edema, Regular rate/rhythm, Normal S1 S2 Capillary refill: <2 Seconds Gastrointestinal: Normal bowel sounds, No tenderness Musculoskeletal: No tenderness Integumentary: No rashes, Other (Left knee incision.) Neurological: Normal speech, Normal tone, Normal affect Lymphatics: No axilla or inguinal lymphadenopathy Laboratory Data (last 24 hrs) 01/18/23 01/18/23 01/18/23 15:54 15:54 15:35 WBC 8.10 Hgb 12.9 Hct 38.5 Plt Count 205 PT 11.4 INR 1.04 APTT 25.0 Sodium 138 Potassium 4.0 BUN 11 Creatinine 1.13 H Glucose 100 Total Bilirubin 0.5 AST 29 ALT 23 Alkaline Phosphatase 86 Conclusions/Impression: --Left knee pain. Status post left total knee replacement. Patient on a CPM machine. Orthopedic surgeon on board. Continue supportive care. --Acute pain. We will manage pain with current pain medication regimen. --Hyperlipidemia. Continue statin. --Bipolar disorder. Continue home medications. --Hypertension. Poorly controlled.. Continue home medication and labetalol as needed. --Obesity. Likely secondary to excess calories intake. Patient counseled on weight reduction, diet and excise therapy. --DVT prophylaxis with SCDs. Continue chemical prophylaxis in a.m. Physician Review: Patient Assessed, Agree with Above Assessment and Plan Critical Care: No
[2023-01-19] MEDS: CLINDAMYCIN 900MG/D5W 900 MG/50 ML IVPB IV SCH ×2 (13:55→22:00)
[2023-01-19 14:21] LABS: Magnesium 2.1 mg/dL (1.6-2.4); Phosphorus 3.2 mg/dL (2.5-4.9)
[2023-01-19] MEDS ORDERED: TRAZODONE 50 MG TABLET PO SCH (21:00)
[2023-01-20 01:00] VITALS: O2SAT 98
[2023-01-20 04:02] LABS: Absolute Lymphocytes (CBC) 0.8 K/uL (0.7-4.9); Hematocrit 32.4 % (36.0-45.0); Lymphocytes % 7.1 % (15.3-44.8); MPV 7.9 fL (7.6-11.3); Platelets 188 thou/uL (152-406); RBC Red Blood Cell Count 3.77 M/uL (3.86-4.86)
[2023-01-20 04:17] LABS: Potassium 4.3 mEq/L (3.5-5.1)
[2023-01-20] MEDS: CLINDAMYCIN 900MG/D5W 900 MG/50 ML IVPB IV SCH (05:43)
[2023-01-20] MEDS ORDERED: ENOXAPARIN 30 MG/0.3 ML SQ SCH (06:00)
[2023-01-20] MEDS ORDERED: LEVOTHYROXINE SOD 0.075 MG TAB PO SCH (06:30)
[2023-01-20] MEDS ORDERED: LEVOTHYROXINE SOD 0.1 MG TAB PO SCH (06:30)
--- NOTE | 2023-01-20 08:07 | P.PN ---
Subjective Date of Service: 01/20/23 Chief Complaint: Left knee pain POD# 1 from left total knee arthroplasty. She tolerated the procedure well. Her pain is well-controlled. She has been working well with PT. She denies chest pain, palpitations, or shortness of breath. Review of Systems 10-point ROS is otherwise unremarkable Musculoskeletal: Leg Pain (left knee) Physical Examination - Vital Signs Temperature: 97.5 F Blood Pressure: 159/76 Pulse: 73 Respirations: 18 Pulse Ox (%): 93 - Physical Exam General: Alert, In no apparent distress, Oriented x3 HEENT: Atraumatic, Mucous membr. moist/pink, Sclerae nonicteric Neck: JVD not distended Respiratory: Clear to auscultation bilaterally, Normal air movement Cardiovascular: No edema, Regular rate/rhythm, Normal S1 S2, No gallops, No rubs, No murmurs Gastrointestinal: Normal bowel sounds, Soft and benign, Non-distended, No tenderness, No rebound, No guarding Musculoskeletal: No clubbing, Other (left knee covered in clean dressing) Integumentary: No rashes Neurological: Normal speech, Normal affect - Studies Laboratory Data (last 24 hrs) 01/20/23 01/20/23 01/19/23 03:38 03:38 13:58 WBC 10.80 Hgb 11.1 L Hct 32.4 L Plt Count 188 Sodium 138 Potassium 4.3 BUN 13 Creatinine 1.15 H Glucose 152 H Phosphorus 3.2 Magnesium 2.1 Assessment And Plan - Plan DIAGNOSES: # Left Knee Osteoarthritis s/p Left Total Knee Arthroplasty # Bipolar Disorder # Rheumatoid Arthritis # Hypertension # Hyperlipidemia # Obesity - BMI 37.8 kg/m2 # Microscopic Hematuria RECOMMENDATIONS: - Seems to be doing well post-operatively - Continue with post-operative PT - Prophylactic anticoagulation per primary - PRN pain control - Continue home medications - She was noted to have microscopic hematuria. She was advised to follow-up with Urology as an outpatient to evaluate for an underlying urologic malignancy. Thank you for this consultation. These recommendations were discussed with Dr. Mims. Internal Medicine will follow along while hospitalized. Abdifatah Urbano M.D.
[2023-01-20] MEDS ORDERED: SPIRONOLACTONE 25 MG TABLET PO SCH (09:00)
[2023-01-20] MEDS ORDERED: lamoTRIgine 100 MG TAB PO SCH (09:00)
[2023-01-20] MEDS ORDERED: LURASIDONE HCL 20 MG PO SCH (09:00)
[2023-01-20] MEDS ORDERED: ESCITALOPRAM 20 MG TAB PO SCH (09:00)
[2023-01-20 16:20] VITALS: BP 145/61; TEMP 97.6
== END 2023-01-20 18:20 | disposition home health service (06) ==
LOC: OR 05:30 → 2ND 09:52
PROVIDERS: ADMIT Orthopaedic Surgery; ATTEND Orthopaedic Surgery
PROC: 0SRD069 Replacement of Left Knee Joint with Oxidized Zirconium on Polyethylene Synthetic Substitute, Cemented, Open Approach (ICD-10-PCS; principal; 2023-01-19 07:00)
DX: M17.12 Unilateral primary osteoarthritis, left knee (principal); M25.562 Pain in left knee; I10 Essential (primary) hypertension; E78.5 Hyperlipidemia, unspecified; E66.9 Obesity, unspecified; F31.9 Bipolar disorder, unspecified; Z88.0 Allergy status to penicillin; Z68.37 Body mass index [BMI] 37.0-37.9, adult; R31.29 Other microscopic hematuria
CPT/HCPCS: 85025 ×2; 81001; 80048; 36415 ×3; 83735; 84100; 85610; 88305; 88311; 85730; 80053; 97110 ×3; 97116 ×3; 97139; 97161; 97530 ×4; 94010 ×2; 27447; J3475; J2704; J1100; J0171; J2001 ×2; J1650; J2250; J3010 ×2; J7120 ×2; 88304; G0378; G0379

== ENCOUNTER → 2023-04-23 | Emergency (ER) | payer OTHER ==
[~2023-04-23] MED LIST: ASPIRIN 81 MG CHEWABLE TABLET ONE; KETOROLAC 30 MG/ML INJ ONE; TRAMADOL HCL 50 MG TAB ONE
[2023-04-23 15:10] LABS: Absolute Lymphocytes (CBC) 1.3 K/uL (0.7-4.9); Hematocrit 31.9 % (36.0-45.0); Lymphocytes % 13.4 % (15.3-44.8); MCV 84.7 fL (80-100); MPV 7.4 fL (7.6-11.3); Platelets 299 thou/uL (152-406); RBC Red Blood Cell Count 3.76 M/uL (3.86-4.86)
[2023-04-23 15:13] LABS: Protime INR 1.15
[2023-04-23 15:28] LABS: Albumin 3.3 g/dL (3.4-5.0); Bilirubin Direct 0.1 mg/dL (0-0.2); Bilirubin Indirect, Calculated 0.3 mg/dL (0.2-0.8); Bilirubin Total 0.4 mg/dL (0.2-1.0); Magnesium 2.1 mg/dL (1.6-2.4); Potassium 3.8 mEq/L (3.5-5.1); Protein, Total 8.5 g/dL (6.4-8.2)
--- NOTE | 2023-04-23 16:33 | RAD REPORT ---
EXAM DESCRIPTION: RAD - Shoulder Left 2 View - 04/23/2023 3:58 pm CLINICAL HISTORY: Left shoulder pain FINDINGS: AC joint is widened since October 2022. This may be the sequela of a ligamentous injury shoul d be correlated clinically. No fracture
--- NOTE | 2023-04-23 16:33 | RAD REPORT ---
EXAM DESCRIPTION: [place] Single View04/23/2023 3:58 pm CLINICAL HISTORY: Chest pain COMPARISON: October 2022 FINDINGS: Marked enlargement of cardiac silhouette. Patient is known to have a combination of cardio megaly and pericardial effusion. Lungs appear clear of acute infiltrate
--- NOTE | 2023-04-23 20:16 | RAD REPORT ---
EXAM DESCRIPTION: CT - Angio Aorta For Dissection - 04/23/2023 7:36 pm CLINICAL HISTORY: . Chest and abd pain COMPARISON: October 2022 CT chest TECHNIQUE: Computed tomography angiography of the chest, abdomen pelvis were obtained. 100 cc Isovue 370 was administered intravenously. Coronal and sagittal reconstruction were performed. MIP 3D reconstruction was performed All CT scans are performed using dose optimization technique as appropriate and may include automated exposure control or mA/KV adjustment according to patient size. FINDINGS: An aortic dissection is not seen. An aortic aneurysm is not displayed. The celiac, SMA and SHER are patent . A lung consolidation is not present. Small to moderate pericardial effusion. A pleural effusion is no t noted. The liver,spleen, pancreas,adrenals and left kidney demonstrate no significant abnormality. 3 cm right renal cyst There no evidence diverticulitis. No adnexal mass IMPRESSION: Negative for an aortic dissection. Small to moderate pericardial effusion
[2023-04-23 22:17] LABS: Urine Bacteria <20 /HPF (<20); Urine Bilirubin NEGATIVE (Negative); Urine Blood Trace (Negative); Urine Clarity Clear (Clear); Urine Color Light-Yellow (Yellow); Urine Glucose NEGATIVE (Negative); Urine Mucus Slight /HPF (None Seen); Urine Protein 1+ (Negative); Urine RBC <5 /HPF (None Seen); Urine Urobilinogen Normal (Normal)
[2023-04-23 22:27] LABS: Specific Gravity > 1.030 (1.005-1.030)
--- NOTE | 2023-04-23 22:46 | ER ---
Nurse's Notes [facility] Name: Aniya Foreman Age: 62 yrs Sex: Female : 1960 Arrival Date: 04/23/2023 Time: 13:49 Bed 12 Private MD: Diagnosis: Pain in left shoulder;Chest pain, unspecified Presentation: 04/23 14:29 Chief complaint: Intermittent sharp left sided chest pain that radiates to left hb shoulder while sitting in chair at 1230 today. Has nuclear stress test planned for Wednesday with Dr. Stevens. Coronavirus screen: At this time, the client does not indicate any symptoms associated with coronavirus-19. Ebola Screen: No symptoms or risks identified at this time. Initial Sepsis Screen: Does the patient meet any 2 criteria? No. Patient's initial sepsis screen is negative. Does the patient have a suspected source of infection? No. Patient's initial sepsis screen is negative. Risk Assessment: Do you want to hurt yourself or someone else? Patient reports no desire to harm self or others. Onset of symptoms was April 23, 2023 at 12:30. 14:29 Method Of Arrival: Ambulatory hb 14:29 Acuity: VIDAL 3 hb Historical: - Allergies: 14:28 PENICILLINS; hb - Home Meds: 14:32 Spironolactone Oral [Active]; levothyroxine oral [Active]; Latuda oral [Active]; hb lamotrigine oral [Active]; - PMHx: 14:28 Bipolar disorder; High Cholesterol; Hypertension; hb 14:32 RA; hb - PSHx: 14:32 Knee Replacement - Left; hb - Immunization history:: Adult Immunizations up to date. - Social history:: Smoking status: Patient denies any tobacco usage or history of. Screenin:20 [facility] ED Fall Risk Assessment (Adult) History of falling in the last 3 months, bp including since admission No falls in past 3 months (0 pts). Abuse screen: Denies threats or abuse. Denies injuries from another. Nutritional screening: No deficits noted. Tuberculosis screening: No symptoms or risk factors identified. Assessment: 19:20 Reassessment: Patient appears in no apparent distress at this time. Patient is alert, bp oriented x 3, equal unlabored respirations, skin warm/dry/pink. Cardiovascular: Rhythm is sinus rhythm. Vital Signs: 14:29 BP 172 / 97; Pulse 95; Resp 16; Temp 98.5(TE); Pulse Ox 100% on R/A; Weight 97.07 kg; hb Height 5 ft. 4 in. ; Pain 7/10; 19:00 BP 168 / 85; Pulse 87; Resp 16; Pulse Ox 100% ; bp 14:29 Body Mass Index 36.73 (97.07 kg, 162.56 cm) hb 14:29 Pain Scale: Adult hb ED Course: 13:51 Patient arrived in ED. rg4 13:54 Cole Mcdowell PA is PHCP. cp 13:54 Juan Dumont MD is Attending Physician. cp 14:28 Arm band placed on. hb 14:32 Triage completed. hb 14:34 EKG done, by ED staff. aw1 14:57 Initial lab(s) drawn, by me, sent to lab. Inserted saline lock: 22 gauge in right upper aa5 arm, using aseptic technique. Blood collected. 16:00 XRAY Chest (1 view) In Process Unspecified. EDMS 16:00 XRAY Shoulder LEFT 2 view In Process Unspecified. EDMS 17:13 Yong Lazaro, RN is Primary Nurse. bp 19:20 Patient has correct armband on for positive identification. Pulse ox on. NIBP on. bp 19:38 CT Aorta for Dissection In Process Unspecified. EDMS 22:17 Urinalysis W/Microscopic Sent. bp 23:18 No provider procedures requiring assistance completed. IV discontinued. Patient bp maintains SpO2 saturation greater than 95% on room air. Administered Medications: 17:24 Drug: Aspirin PO Chewable Tablet 324 mg PO once; 81 mg tablets x 4 Route: PO; bp 23:18 Follow up: Response: No adverse reaction bp 17:24 Drug: Ketorolac IVP 15 mg IVP once Route: IVP; Site: right upper arm; bp 23:18 Follow up: Response: No adverse reaction bp 17:24 Drug: traMADol PO 50 mg PO once Route: PO; bp 23:18 Follow up: Response: No adverse reaction bp Outcome: 22:46 Discharge ordered by MD. cp 23:18 Discharged to home ambulatory, bp 23:18 Condition: stable 23:18 Discharge instructions given to patient, Instructed on discharge instructions, follow up and referral plans. medication usage, Demonstrated understanding of instructions, follow-up care, medications, Prescriptions given X 2, 23:19 Patient left the ED. bp Signatures: Dispatcher [employer] EDPhylicia Lebron, RN RN aa5 Cole Mcdowell PA PA cp Baxter, Heather, RN RN Rhona Adkins rg4 Yong Lazaro RN RN bp Dennsie Tovar aw1 Corrections: (The following items were deleted from the chart) 14:35 14:32 Allergies: RA; hb hb
--- NOTE | 2023-04-23 22:46 | EDPHYS ---
Physician Documentation [facility] Name: Aniya Foreman Age: 62 yrs Sex: Female : 1960 Arrival Date: 04/23/2023 Time: 13:49 Bed 12 Private MD: ED Physician Juan Dumont HPI: 04/23 14:35 This 62 yrs old Female presents to ER via Ambulatory with complaints of Chest Pain, cp Shoulder Pain. 14:35 The patient or guardian reports chest pain that is located primarily in the anterior cp chest wall, left upper chest. 14:35 Onset: today, about 1230 while sitting chair. cp 14:35 The pain radiates to left back. Associated signs and symptoms: Pertinent positives: cp anterior left shoulder pain, Pertinent negatives: abdominal pain, cough, diaphoresis, dizziness, lower extremity pain, lower extremity swelling, near syncope, palpitations, shortness of breath, syncope. 14:35 The chest pain is described as sharp. cp 14:35 Duration: The patient or guardian reports a single episode, that is still ongoing. cp Modifying factors: the symptoms are aggravated by moving shoulder. Historical: - Allergies: 14:28 PENICILLINS; hb - Home Meds: 14:32 Spironolactone Oral [Active]; levothyroxine oral [Active]; Latuda oral [Active]; hb lamotrigine oral [Active]; - PMHx: 14:28 Bipolar disorder; High Cholesterol; Hypertension; hb 14:32 RA; hb - PSHx: 14:32 Knee Replacement - Left; hb - Immunization history:: Adult Immunizations up to date. - Social history:: Smoking status: Patient denies any tobacco usage or history of. ROS: 14:40 MS/extremity: Positive for pain, tenderness, of the left shoulder, Negative for injury cp or acute deformity, decreased range of motion, paresthesias, 14:40 Eyes: Negative for injury, pain, redness, and discharge, cp 14:40 Constitutional: Negative for body aches, chills, fever, poor PO intake, 14:40 Neck: Negative for pain with movement, pain at rest, stiffness, 14:40 Cardiovascular: Positive for chest pain, of the left upper chest, Negative for edema, palpitations, 14:40 Respiratory: Negative for cough, shortness of breath, wheezing, 14:40 Abdomen/GI: Negative for abdominal pain, nausea, vomiting, and diarrhea, 14:40 : Negative for urinary symptoms, 14:40 Neuro: Negative for altered mental status, dizziness, headache, numbness, syncope, weakness, 14:40 All other systems are negative, Exam: 14:40 ECG was reviewed by the Attending Physician. cp 14:45 Constitutional: The patient appears in no acute distress, alert, awake, cp non-diaphoretic, non-toxic, well developed, well nourished, overweight 14:45 Head/Face: Normocephalic, atraumatic. cp 14:45 Eyes: Periorbital structures: appear normal, Conjunctiva: normal, no exudate, no injection, Sclera: no appreciated abnormality, Lids and lashes: appear normal, bilaterally, 14:45 ENT: External ear(s): are unremarkable, Nose: is normal, Mouth: Lips: moist, Oral mucosa: pink and intact, moist, Posterior pharynx: is normal, airway is patent, no erythema, no exudate, 14:45 Neck: ROM/movement: is normal, is supple, without pain, no range of motions limitations, no meningismus, no nuchal rigidity, 14:45 Chest/axilla: Inspection: normal, Palpation: crepitus, is not appreciated, tenderness, that is mild, of the anterior aspect of left upper chest, 14:45 Cardiovascular: Rate: normal, Rhythm: regular, Edema: is not appreciated, JVD: is not appreciated, 14:45 Respiratory: the patient does not display signs of respiratory distress, Respirations: normal, no use of accessory muscles, no retractions, labored breathing, is not present, Breath sounds: are clear throughout, no decreased breath sounds, no stridor, no wheezing, 14:45 Abdomen/GI: Inspection: abdomen appears normal, Palpation: abdomen is soft and non-tender, in all quadrants, 14:45 Back: pain, that is mild, of the left trapezius and left scapular area, ROM is normal, 14:45 Skin: no rash present. 14:45 Neuro: Orientation: to person, place \T\ time. Mentation: is normal, Motor: moves all fours, strength is normal, Sensation: is normal, Vital Signs: 14:29 BP 172 / 97; Pulse 95; Resp 16; Temp 98.5(TE); Pulse Ox 100% on R/A; Weight 97.07 kg; hb Height 5 ft. 4 in. ; Pain 7/10; 19:00 BP 168 / 85; Pulse 87; Resp 16; Pulse Ox 100% ; bp 14:29 Body Mass Index 36.73 (97.07 kg, 162.56 cm) hb 14:29 Pain Scale: Adult hb MDM: 14:35 Patient medically screened. cp 22:45 Data reviewed: vital signs, nurses notes, lab test result(s), EKG, radiologic studies, cp CT scan, plain films. 22:45 Differential diagnosis: abnormal EKG, acute myocardial infarction, acute pericarditis, cp pleurisy, pneumonia, pneumothorax, pulmonary embolus, stable angina, thoracic aortic disection, unstable angina, tendonitis of shoulder. The patient was given aspirin in the Emergency Department. Consideration of Admission/Observation Escalation of care including admission/observation considered. I considered the following discharge prescriptions or medication management in the emergency department Medications were administered in the Emergency Department. See MAR. Independent interpretation of the following test(s) in the Emergency Department EKG: See my EKG interpretation above. Counseling: I had a detailed discussion with the patient and/or guardian regarding the historical points, exam findings, and any diagnostic results supporting the discharge/admit diagnosis, lab results, radiology results, the need for outpatient follow up, a litigation associate, to return to the emergency department if symptoms worsen or persist or if there are any questions or concerns that arise at home. Response to treatment: the patient's symptoms have markedly improved after treatment, and as a result, I will discharge patient. Special discussion: Based on the patient's history, exam, and Dx evaluation, there is no indication for emergent intervention or inpatient Tx. It is understood by the patient/guardian that if the Sx's persist or worsen they need to return immediately for re-evaluation. ED course: patient has appt with cardiology next week for stress test, DR Maier. Will discharge to home with instructions to return to ED symptoms return and/or worsen. 04/23 21:23 Order name: Troponin High Sensitivity EDMS 04/23 21:54 Interpretation: Reviewed. cp 04/23 14:33 Order name: Basic Metabolic Panel; Complete Time: 15:41 cp 04/23 15:41 Interpretation: Normal except: GLUC 143; GFR 63. / 14:33 Order name: CBC with Diff; Complete Time: 15:41 cp 04/23 18:30 Interpretation: Normal except: RBC 3.76; HGB 11.3; HCT 31.9; MPV 7.4; NATE% 78.0; LYM% cp 13.4. 12/ 14:33 Order name: LFT's; Complete Time: 15:41 cp / 14:33 Order name: Magnesium; Complete Time: 15:41 cp / 14:33 Order name: NT PRO-BNP; Complete Time: 15:41 cp / 14:33 Order name: PT-INR; Complete Time: 15:41 / 14:33 Order name: Troponin HS; Complete Time: 15:41 / 14:33 Order name: Urinalysis W/Microscopic; Complete Time: 22:45 / 22:45 Interpretation: Normal except: Urine SG > 1.030; UBLD Trace; UPROT 1+. / 14:33 Order name: XRAY Chest (1 view); Complete Time: 18:28 cp / 18:29 Interpretation: Report review. 04/23 15:40 Order name: XRAY Shoulder LEFT 2 view; Complete Time: 18:28 04/23 18:31 Order name: CT Aorta for Dissection; Complete Time: 20:18 cp 04/23 21:55 Interpretation: Report reviewed. 04/23 14:33 Order name: EKG; Complete Time: 14:36 04/23 14:33 Order name: Cardiac monitoring; Complete Time: 17:14 04/23 14:33 Order name: EKG - Nurse/Tech; Complete Time: 14:35 cp 04/23 14:33 Order name: IV Saline Lock; Complete Time: 15:06 04/23 14:33 Order name: Labs collected and sent; Complete Time: 15:06 04/23 14:33 Order name: O2 Per Protocol; Complete Time: 17:14 cp / 14:33 Order name: O2 Sat Monitoring; Complete Time: 17:14 cp EC:40 Rate is 93 beats/min. Rhythm is regular. [place] interval is normal. QRS interval is normal. cp QT interval is normal. T waves are Inverted in lead aVR. Interpreted by me. Reviewed by me. Administered Medications: 17:24 Drug: Aspirin PO Chewable Tablet 324 mg PO once; 81 mg tablets x 4 Route: PO; bp 23:18 Follow up: Response: No adverse reaction bp 17:24 Drug: Ketorolac IVP 15 mg IVP once Route: IVP; Site: right upper arm; bp 23:18 Follow up: Response: No adverse reaction bp 17:24 Drug: traMADol PO 50 mg PO once Route: PO; bp 23:18 Follow up: Response: No adverse reaction bp Disposition: 16:27 Co-signature as Attending Physician, Juan Dumont MD I agree with the assessment and cp3 plan of care. I reviewed the patient's care provided by the Advanced Practice Provider and agree with the diagnosis and treatment plan. Disposition Summary: 04/23/23 22:46 Discharge Ordered Notes: Location: Home cp Problem: new cp Symptoms: have improved cp Condition: Stable cp Diagnosis - Pain in left shoulder cp - Chest pain, unspecified cp Followup: cp - With: Private Physician - When: 2 - 3 days - Reason: Recheck today's complaints Discharge Instructions: - Discharge Summary Sheet cp - Nonspecific Chest Pain, Adult cp - Chest Wall Pain cp - Shoulder Pain cp - Aspirin and Your Heart cp Forms: - Medication Reconciliation Form cp - Thank You Letter cp - Antibiotic Education cp - Prescription Opioid Use cp - Patient Portal Instructions cp - Leadership Thank You Letter cp Prescriptions: - Cyclobenzaprine 10 mg Oral Tablet - take 1 tablet ORAL route every 8 hours As needed; 30 tablet; Refills: 0, cp Product Selection Permitted - Diclofenac Sodium 75 mg Oral Tablet Sustained Release - take 1 tablet ORAL route 2 times per day; 30 tablet; Refills: 0, Product cp Selection Permitted Signatures: Dispatcher [employer] Juan Gong MD MD cp3 Cole Mcdowell PA PA cp Enedelia Ramos RN RN Yong Coulter RN RN bp Corrections: (The following items were deleted from the chart) 14:35 14:32 Allergies: RA; hb hb 04/24 21:15 12 14:35 Onset: today, cp cp 04/24 21:16 12 14:35 The chest pain is described as aching, cp cp
[2023-04-24 02:39] VITALS: TEMP 98.5; O2SAT 100
[2023-04-24 02:43] VITALS: BP 168/85
--- NOTE | 2023-04-26 12:33 | EKG ---
Test Date: 2023-04-23 Test Time: 14:34:48 Soil Scientist: A MEASUREMENT RESULTS: Intervals: Rate: 93 MI: 132 QRSD: 98 QT: 380 QTc: 472 [place]: P: 28 MI: 132 QRS: -69 T: 65 INTERPRETIVE STATEMENTS: Normal sinus rhythm Possible Left atrial enlargement Left anterior fascicular block Cannot rule out Anterior infarct, age undetermined Abnormal ECG Compared to ECG 10/19/2022 19:45:03 Left anterior fascicular block now present Left-axis deviation no longer present Myocardial infarct finding still present Electronically Signed On 04-26-23 12:27:39 STABLE HELPER by Campbell Saldana
== END ==
LOC: ER 13:49
DX: R07.89 Other chest pain (principal); M25.512 Pain in left shoulder; E78.00 Pure hypercholesterolemia, unspecified; I10 Essential (primary) hypertension; Z88.0 Allergy status to penicillin
CPT/HCPCS: 85025; 81001; 80048; 36415; 83735; 85610; 80076; 84484 ×2; 83880; 71275; 74175; 71045; 73030; 96374; 99285; Q9967; 93005

== ENCOUNTER 2024-08-02 20:11 | Emergency (ER) | payer OTHER ==
[2024-08-02 22:06] LABS: Absolute Basophils 0.1 K/uL (0-0.5); Absolute Eosinophils 0.2 K/uL (0-0.5); Absolute Lymphocytes (CBC) 1.6 K/uL (0.7-4.9); Absolute Monocytes 0.6 K/uL (0.1-1.3); Absolute Neutrophil 5.1 K/uL (1.8-8.0); Basophils % 1.3 % (0-1.3); Eosinophils % 3.2 % (0-4.4); Hematocrit 38.1 % (36.0-45.0); Hemoglobin 12.7 g/dL (12.0-15.0); Lymphocytes % 20.7 % (15.3-44.8); MCH 25.6 pg (27.0-35.0); MCHC 33.3 g/dL (32.0-36.0); MPV 8.2 fL (7.6-11.3); Monocytes % 7.7 % (3.3-12.3); Neutrophils % 67.1 % (41.7-73.7); Nucleated Red Blood Cells % 0.1 % (0-0); Platelets 201 thou/uL (152-406); RBC Red Blood Cell Count 4.95 M/uL (3.86-4.86); Red Cell Distribution Width 16.1 % (12.1-15.2)
--- NOTE | 2024-08-02 22:20 | RAD REPORT ---
Procedure: Chest Single View HISTORY: Shortness of breath COMPARISON: 2022 FINDINGS: The lungs appear clear of acute infiltrate. No significant pleural effusion noted. The cardiac silhouette is moderately enlarged. IMPRESSION: No acute abnormality is displayed.
[2024-08-02 22:22] LABS: Anion Gap 7.6 mEq/L (5.0-15.0); Magnesium 2.2 mg/dL (1.6-2.4); Potassium 3.6 mEq/L (3.5-5.1); Troponin High Sensitivity 16.2 pg/mL (<58.9)
--- NOTE | 2024-08-02 23:07 | ER ---
Nurse's Notes [facility] Name: Aniya Foreman Age: 63 yrs Sex: Female : 1960 Arrival Date: 08/02/2024 Time: 20:11 Bed 13 Private MD: Diagnosis: Dyspnea Presentation: 08/02 20:42 Chief complaint: Patient states: difficulty breathing, started 3 weeks ago , she gasps iw for air X 1 week , she takes a water pill and they increased it a year ago. Coronavirus screen: Client presents with at least one sign or symptom that may indicate coronavirus-19. Ebola Screen: No symptoms or risks identified at this time. Initial Sepsis Screen: Does the patient meet any 2 criteria? No. Patient's initial sepsis screen is negative. Does the patient have a suspected source of infection? No. Patient's initial sepsis screen is negative. Risk Assessment: Do you want to hurt yourself or someone else? Patient reports no desire to harm self or others. Onset of symptoms was July 12, 2024. 20:42 Method Of Arrival: Ambulatory iw 20:42 Acuity: VIDAL 3 iw Historical: - Allergies: 20:44 PENICILLINS; iw 20:44 Mucinex; iw - PMHx: 20:44 Bipolar disorder; High Cholesterol; Hypertension; RA; iw - PSHx: 20:44 knee replacement - left; iw - Immunization history:: Adult Immunizations up to date. - Infectious Disease History:: Denies. - Social history:: Smoking status: Patient denies any tobacco usage or history of. Patient/guardian denies using alcohol, street drugs, IV drugs. Screenin:45 [facility] ED Fall Risk Assessment (Adult) History of falling in the last 3 months, br2 including since admission No falls in past 3 months (0 pts) Confusion or Disorientation No (0 pts) Intoxicated or Sedated No (0 pts) Impaired Gait No (0 pts) Mobility Assist Device Used No (0 pt) Altered Elimination No (0 pt) Score/Fall Risk Level 0 - 2 = Low Risk Oriented to surroundings. Abuse screen: Denies threats or abuse. Denies injuries from another. Nutritional screening: No deficits noted. Tuberculosis screening: Assessment: 20:45 Reassessment: Patient and/or family updated on plan of care and expected duration. Pain br2 level reassessed. Patient is alert, oriented x 3, equal unlabored respirations, skin warm/dry/pink. General: Appears in no apparent distress. comfortable, Behavior is calm, cooperative. 20:45 Pain: Denies pain. Cardiovascular: Capillary refill < 3 seconds. Respiratory: Airway is br2 patent Respiratory effort is even, unlabored, Breath sounds are clear bilaterally. GI: No signs and/or symptoms were reported involving the gastrointestinal system. : No signs and/or symptoms were reported regarding the genitourinary system. : No signs and/or symptoms were reported regarding the genitourinary system. EENT: No signs and/or symptoms were reported regarding the EENT system. Derm: No signs and/or symptoms reported regarding the dermatologic system. Musculoskeletal: No signs and/or symptoms reported regarding the musculoskeletal system. 23:21 Cardiovascular:. br2 Vital Signs: 20:42 BP 154 / 87; Pulse 68; Resp 19 S; Temp 97.4(O); Pulse Ox 100% ; Weight 104.33 kg; iw Height 5 ft. 4 in. ; 23:06 BP 152 / 81; Pulse 62; Resp 18; Pulse Ox 99% on R/A; br2 20:42 Body Mass Index 39.48 (104.33 kg, 162.56 cm) iw ED Course: 20:11 Patient arrived in ED. jj6 20:16 Kristen Patterson FNP-C is PHCP. kb 20:16 Yamilka De La Garza MD is Attending Physician. kb 20:44 Triage completed. iw 20:45 Arm band placed on. iw 20:45 Patient has correct armband on for positive identification. Placed in gown. Bed in low br2 position. Call light in reach. Side rails up X 1. Provided Education on: PLAN OF CARE. 20:45 No provider procedures requiring assistance completed. br2 21:23 Missed attempt(s): 22 gauge Bleeding controlled, band aid applied, catheter tip intact. kmf 21:26 Nneka Vila, GERMAN is Primary Nurse. br2 21:59 Inserted saline lock: 22 gauge in right antecubital area, using aseptic technique. vc1 Blood collected. Flushed with 10 mL NS. 22:12 XRAY Chest (1 view) In Process Unspecified. EDMS 23:21 IV discontinued, intact, bleeding controlled, No redness/swelling at site. Pressure br2 dressing applied. Administered Medications: No medications were administered Medication: 20:45 VIS not applicable for this client. br2 Outcome: 23:07 Discharge ordered by MD. martinez 23:21 Discharged to home ambulatory, br2 23:21 Condition: good 23:21 Discharge instructions given to patient, Instructed on discharge instructions, follow up and referral plans. Demonstrated understanding of instructions, follow-up care, 23:23 Patient left the ED. br2 Signatures: Dispatcher [employer] EDMS Kristen Patterson, SOCIAL PSYCHOLOGIST-C SOCIAL PSYCHOLOGIST-Lana Hernandez, RN RN iw Ivon Novoa jj6 Marya Mg RN RN vc1 Sahra Shaw [facility] Nneka Vila RN RN br2 Corrections: (The following items were deleted from the chart) 20:51 20:42 BP 154 / 87; Pulse 68bpm; Resp 19bpm; Spontaneous; Pulse Ox 100%; 104.33 kg; iw Height 5 ft. 4 in.; BMI: 39.4; iw
--- NOTE | 2024-08-02 23:08 | EDPHYS ---
Physician Documentation [facility] Name: Aniya Foreman Age: 63 yrs Sex: Female : 1960 Arrival Date: 08/02/2024 Time: 20:11 Bed 13 Private MD: ED Physician Yamilka De La Garza HPI: 08/02 23:14 This 63 yrs old Female presents to ER via Ambulatory with complaints of Shortness Of kb Breath. 23:14 Patient is a 63-year-old female who presents for shortness of breath that started 3 kb weeks ago. States has been feeling like she is losing air while talking over the last week and has to gasp for air. Denies cough, congestion, fever. Reports history of asthma, takes 2 puffs of Symbicort in the morning and at night. States she has not been using her albuterol inhaler. Denies chest pain.. Historical: - Allergies: 20:44 PENICILLINS; iw 20:44 Mucinex; iw - PMHx: 20:44 Bipolar disorder; High Cholesterol; Hypertension; RA; iw - PSHx: 20:44 knee replacement - left; iw - Immunization history:: Adult Immunizations up to date. - Infectious Disease History:: Denies. - Social history:: Smoking status: Patient denies any tobacco usage or history of. Patient/guardian denies using alcohol, street drugs, IV drugs. ROS: 23:13 Constitutional: As per HPI kb Exam: 21:10 Constitutional: This is a well developed, well nourished patient who is awake, alert, kb and in no acute distress. Head/Face: Normocephalic, atraumatic. ENT: Moist Mucous membranes Cardiovascular: Regular rate Respiratory: Respirations even and unlabored. No increased work of breathing. Talking in full sentences Abdomen/GI: Soft, non-tender. No distention Skin: Warm, dry with normal turgor. Normal color. MS/ Extremity: Pulses equal, no cyanosis. Neurovascular intact. Full, normal range of motion. Neuro: Awake and alert, GCS 15, oriented to person, place, time, and situation. 21:10 ECG was reviewed by the Attending Physician. Vital Signs: 20:42 BP 154 / 87; Pulse 68; Resp 19 S; Temp 97.4(O); Pulse Ox 100% ; Weight 104.33 kg; iw Height 5 ft. 4 in. ; 23:06 BP 152 / 81; Pulse 62; Resp 18; Pulse Ox 99% on R/A; br2 20:42 Body Mass Index 39.48 (104.33 kg, 162.56 cm) iw MDM: 20:17 Medical Screening Exam initiated kb 23:13 Differential diagnosis: asthma, Chronic Obstructive Pulmonary Disease pneumonia, kb pulmonary edema. Data reviewed: vital signs, nurses notes. Historians other than the Patient: Family Member: family member. Care significantly affected by the following chronic conditions: asthma. Counseling: I had a detailed discussion with the patient and/or guardian regarding the historical points, exam findings, and any diagnostic results supporting the discharge/admit diagnosis, lab results, radiology results, the need for outpatient follow up, a family practitioner, to return to the emergency department if symptoms worsen or persist or if there are any questions or concerns that arise at home. 08/02 20:47 Order name: Basic Metabolic Panel; Complete Time: 22:25 08/02 20:47 Order name: CBC with Diff; Complete Time: 22:07 08/02 20:47 Order name: Magnesium; Complete Time: 22:25 08/02 20:47 Order name: NT PRO-BNP; Complete Time: 22:25 08/02 20:47 Order name: Troponin HS; Complete Time: 22:25 08/02 20:47 Order name: XRAY Chest (1 view); Complete Time: 22:23 08/02 20:47 Order name: EKG; Complete Time: 20:48 08/02 20:47 Order name: Cardiac monitoring; Complete Time: 21:27 08/02 20:47 Order name: EKG - Nurse/Tech; Complete Time: 21:01 08/02 20:47 Order name: IV Saline Lock; Complete Time: 22:58 08/02 20:47 Order name: Labs collected and sent; Complete Time: :58 08/02 20:47 Order name: O2 Per Protocol; Complete Time: 22:58 08/02 20:47 Order name: O2 Sat Monitoring; Complete Time: 22:58 iw EC:10 Rate is 59 beats/min. Rhythm is regular. QRS [place] is Normal. [place] interval is normal at kb 148 msec. QRS interval is normal at 114 msec. QT interval is normal at 443 msec. Administered Medications: No medications were administered Disposition Summary: 08/02/24 23:07 Discharge Ordered Notes: Location: Home kb Condition: Stable kb Diagnosis - Dyspnea kb Followup: kb - With: Emergency Department - When: As needed - Reason: Worsening of condition Followup: kb - With: Private Physician - When: 2 - 3 days - Reason: Recheck today's complaints, Continuance of care, Re-evaluation by your physician Discharge Instructions: - Discharge Summary Sheet kb - Shortness of Breath, Adult, [id number] kb Forms: - Medication Reconciliation Form kb - Antibiotic Education kb - Prescription Opioid Use kb - Patient Portal Instructions kb - Leadership Thank You Letter kb Signatures: Dispatcher [employer] Kristen Hackett, COUTURE DRESSMAKER-C COUTURE DRESSMAKER-Lana Hernandez, RN RN iw Nneka Vila RN RN br2
[2024-08-02 23:45] VITALS: TEMP 97.4
[2024-08-02 23:55] VITALS: BP 152/81; O2SAT 99
--- NOTE | 2024-08-03 08:35 | EKG ---
Test Date: 2024-08-02 Test Time: 20:58:56 Pressure Vessel Inspector: MONICA MEASUREMENT RESULTS: Intervals: Rate: 59 WI: 148 QRSD: 114 QT: 448 QTc: 443 [place]: P: 32 WI: 148 QRS: -56 T: 84 INTERPRETIVE STATEMENTS: Sinus bradycardia Left anterior fascicular block Moderate voltage criteria for LVH, may be normal variant Abnormal ECG Compared to ECG 04/23/2023 14:34:48 Left ventricular hypertrophy now present Sinus rhythm no longer present Myocardial infarct finding no longer present Electronically Signed On 08-03-24 08:34:51 CDT by Loki Thomas
== END 2024-08-02 23:23 | disposition home or self-care (01) ==
LOC: ER 20:11
DX: R06.00 Dyspnea, unspecified (principal); I10 Essential (primary) hypertension
CPT/HCPCS: 36415; 71045; 80048; 83735; 83880; 84484; 85025; 93005

== ENCOUNTER 2024-08-22 21:03 | Inpatient (IN) | payer OTHER ==
--- NOTE | 2024-08-22 21:55 | RAD REPORT ---
EXAMINATION: ONE VIEW CHEST XR CLINICAL INDICATION: Cough;Congestion TECHNIQUE: Frontal chest projection is submitted. Examination is limited by patient positioning and t echnique. COMPARISON: 08/02/2024 FINDINGS: Mild interstitial prominence. The heart is mildly prominent. No displaced fractures identified. IMPRESSION: Interstitial pattern bilaterally could be related to viral infection or reactive airway disease.
--- NOTE | 2024-08-22 22:18 | EDPHYS ---
Physician Documentation [facility] Name: Aniya Foreman Age: 63 yrs Sex: Female : 1960 Arrival Date: 08/22/2024 Time: 21:03 Bed 19 Private MD: ED Physician Cole Borrego HPI: 08/22 22:11 This 63 yrs old Female presents to ER via EMS with complaints of Shortness Of charles Breath. 22:11 The patient has shortness of breath at rest. Onset: The symptoms/episode began/occurred charles 5 day(s) ago. Duration: The symptoms are intermittent, with no pattern. The patient's shortness of breath is aggravated by coughing, is alleviated by rest, sitting up, application of supplemental oxygen. Associated signs and symptoms: Pertinent positives: non-productive cough, fever. Severity of symptoms: At their worst the symptoms were moderate in the emergency department the symptoms are unchanged. The patient has experienced similar episodes in the past, a few times. Historical: - Allergies: 21:07 Mucinex; me1 21:07 PENICILLINS; me1 - PMHx: 21:07 Bipolar disorder; High Cholesterol; Hypertension; RA; Hypothyroidism; me1 - PSHx: 21:07 knee replacement - left; me1 - Immunization history:: Adult Immunizations up to date. - Infectious Disease History:: Denies. - Social history:: Smoking status: Patient denies any tobacco usage or history of. ROS: 22:12 Constitutional: Negative for fever, chills, and weight loss, Eyes: Negative for injury, charles pain, redness, and discharge, ENT: Negative for injury, pain, and discharge, Neck: Negative for injury, pain, and swelling, Cardiovascular: Negative for chest pain, palpitations, and edema, Abdomen/GI: Negative for abdominal pain, nausea, vomiting, diarrhea, and constipation, Back: Negative for injury and pain, : Negative for injury, bleeding, discharge, and swelling, MS/Extremity: Negative for injury and deformity, Skin: Negative for injury, rash, and discoloration, Neuro: Negative for headache, weakness, numbness, tingling, and seizure, Psych: Negative for depression, anxiety, suicide ideation, homicidal ideation, and hallucinations, Allergy/Immunology: Negative for hives, rash, and allergies, Endocrine: Negative for neck swelling, polydipsia, polyuria, polyphagia, and marked weight changes, Hematologic/Lymphatic: Negative for swollen nodes, abnormal bleeding, and unusual bruising, 22:12 Respiratory: Positive for cough, shortness of breath, wheezing, expiratory, 22:12 MS/extremity: Negative for acute changes, Exam: 22:12 Constitutional: This is a well developed, well nourished patient who is awake, alert, charles and in no acute distress. Head/Face: Normocephalic, atraumatic. Eyes: Pupils equal round and reactive to light, extra-ocular motions intact. Lids and lashes normal. Conjunctiva and sclera are non-icteric and not injected. Cornea within normal limits. Periorbital areas with no swelling, redness, or edema. ENT: Nares patent. No nasal discharge, no septal abnormalities noted. Tympanic membranes are normal and external auditory canals are clear. Oropharynx with no redness, swelling, or masses, exudates, or evidence of obstruction, uvula midline. Mucous membranes moist. Neck: Trachea midline, no thyromegaly or masses palpated, and no cervical lymphadenopathy. Supple, full range of motion without nuchal rigidity, or vertebral point tenderness. No Meningismus. Chest/axilla: Normal chest wall appearance and motion. Nontender with no deformity. No lesions are appreciated. Cardiovascular: Regular rate and rhythm with a normal S1 and S2. No gallops, murmurs, or rubs. Normal PMI, no JVD. No pulse deficits. Abdomen/GI: Soft, non-tender, with normal bowel sounds. No distension or tympany. No guarding or rebound. No evidence of tenderness throughout. Back: No spinal tenderness. No costovertebral tenderness. Full range of motion. Female : Normal external genitalia. Skin: Warm, dry with normal turgor. Normal color with no rashes, no lesions, and no evidence of cellulitis. MS/ Extremity: Pulses equal, no cyanosis. Neurovascular intact. Full, normal range of motion., bilateral aka Neuro: Awake and alert, GCS 15, oriented to person, place, time, and situation. Cranial nerves II-XII grossly intact. Motor strength 5/5 in all extremities. Sensory grossly intact. Cerebellar exam normal. Normal gait. Psych: Awake, alert, with orientation to person, place and time. Behavior, mood, and affect are within normal limits. 22:12 ECG was reviewed by the Attending Physician. 22:12 Musculoskeletal/extremity: DVT Exam: No signs of deep vein thrombosis. no pain, no swelling, no tenderness, negative Homans' sign noted on exam, no appreciated bluish discoloration, no erythema, no increased warmth, Vital Signs: 21:04 BP 137 / 77; Pulse 87; Resp 20; Temp 98.9; Pulse Ox 95% ; Weight 104.33 kg; Height 5 me1 ft. 4 in. ; Pain 0/10; 21:55 BP 121 / 78; Pulse 84; Resp 18; Pulse Ox 97% ; me1 08/23 01:15 BP 128 / 68; Pulse 77; Resp 18; Temp 98.9; Pulse Ox 98% ; Pain 0/10; bm8 08/22 21:04 Body Mass Index 39.48 (104.33 kg, 162.56 cm) [facility] 08/22 21:04 Pain Scale: Adult tx1 08/23 01:15 Pain Scale: Adult bm8 [place] Coma Score: 08/22 23:06 Eye Response: spontaneous(4). Motor Response: obeys commands(6). Verbal Response: bm8 oriented(5). Total: 15. 08/23 01:15 Eye Response: spontaneous(4). Motor Response: obeys commands(6). Verbal Response: bm8 oriented(5). Total: 15. MDM: 08/22 21:04 Medical Screening Exam initiated charles 22:14 Differential diagnosis: Anemia Anxiety Reaction asthma, Bronchitis CHF exacerbation, charles Chronic Obstructive Pulmonary Disease Myocardial Infarction pneumonia, Pneumothorax Psychogenic pulmonary edema, Pulmonary Embolism reactive airway disease, Sepsis Unstable Angina. Antibiotic administration: Rocephin and Zithromax given. Differential Diagnosis: Obstructed Airway Bronchitis Influenza Upper Respiratory Infection Sinusitis Pharyngitis Asthma Exacerbation Viral Syndrome Pneumonia. Immunization status: Influenza vaccine: within last 5 years. Data reviewed: vital signs, nurses notes, EMS record, lab test result(s), EKG, radiologic studies, CT scan, plain films. Consideration of Admission/Observation Patient was admitted/placed on observation. Escalation of care including admission/observation considered. I considered the following discharge prescriptions or medication management in the emergency department Medications were administered in the Emergency Department. See MAR. Independent interpretation of the following test(s) in the Emergency Department EKG: See my EKG interpretation above. Test considered but Not performed: Ultrasound no 2 d echo. Historians other than the Patient: EMS: ems well informed. Care significantly affected by the following chronic conditions: Hypertension, Chronic Obstructive Pulmonary Disease, Obesity, ra, hypothyroid, bipolar. Counseling: I had a detailed discussion with the patient and/or guardian regarding the historical points, exam findings, and any diagnostic results supporting the discharge/admit diagnosis, lab results, radiology results, the need for further work-up and treatment in the hospital. 08/22 21:05 Order name: Basic Metabolic Panel; Complete Time: 23:47 charles 08/22 21:05 Order name: CBC with Diff; Complete Time: 23:47 charles 08/22 21:05 Order name: LFT's; Complete Time: 23:47 charles 08/22 21:05 Order name: Magnesium; Complete Time: 23:47 charles 08/22 21:05 Order name: NT PRO-BNP; Complete Time: 23:47 [facility] 08/22 21:05 Order name: PT-INR; Complete Time: 23:47 charles 08/22 21:05 Order name: Troponin HS; Complete Time: 23:47 charles 08/22 21:05 Order name: COVID-19 Ag + Flu A+B Ag; Complete Time: 23:47 [facility] 08/22 21:05 Order name: Blood Culture Adult (2) 08/22 21:05 Order name: Lactate w/ 2H reflex if indic.; Complete Time: 23:47 [facility] 08/22 22:50 Order name: C-Reactive Protein EDID 08/22 22:50 Order name: C-Reactive Protein EDID 08/22 22:50 Order name: CBC with Automated Diff EDID 08/22 22:50 Order name: CBC with Automated Diff EDID 08/22 22:50 Order name: D-Dimer EDID 08/22 22:50 Order name: D-Dimer EDID 08/22 22:50 Order name: Ferritin EDID 08/22 22:50 Order name: Ferritin EDID 08/23 08:45 Order name: CBC Smear Scan [facility] 08/22 21:05 Order name: XRAY Chest (1 view); Complete Time: 23:47 charles 08/22 21:05 Order name: CT Chest For PE Angio charles 08/23 04:01 Order name: CT EDID 08/22 21:05 Order name: EKG; Complete Time: 21:06 [facility] 08/22 21:05 Order name: Cardiac monitoring; Complete Time: :55 [facility] 08/22 21:05 Order name: EKG - Nurse/Tech; Complete Time: 21:54 [facility] 08/22 21:05 Order name: IV Saline Lock; Complete Time: 23:06 [facility] 08/22 21:05 Order name: Labs collected and sent; Complete Time: 23:06 [facility] 08/22 21:05 Order name: O2 Per Protocol; Complete Time: :55 [facility] 08/22 21:05 Order name: O2 Sat Monitoring; Complete Time: 21:55 [facility] EC:12 Rate is 81 beats/min. Rhythm is regular. MS interval is normal. QRS interval is normal. charles QT interval is normal. No Q waves. T waves are Normal. No ST changes noted. Clinical impression: NSR w/ Non-specific ST/T Changes and No evidence of ischemia. Interpreted by me. Reviewed by me. Administered Medications: 23:05 Drug: MethylPrednisoLONE IVP 125 mg IVP once Route: IVP; Site: right forearm; [facility] 08/23 01:16 Follow up: Response: No adverse reaction [facility] 08/22 23:06 Drug: Famotidine IVP 40 mg IVP once; dilute with 10 mL 0.9% NaCl; give over 2 minutes bm8 Route: IVP; Site: right forearm; 08/23 01:16 Follow up: Response: No adverse reaction [facility] 08/22 23:06 Drug: Rocephin IV 1 grams IV at per protocol once; Given slow IV push per pharmacy bm8 instructions Route: IV; Rate: per protocol; Site: right forearm; 08/23 01:16 Follow up: Response: No adverse reaction; IV Status: Completed infusion 8 08/22 23:06 Drug: Zithromax IVPB 500 mg IVPB once over 1 hrs; mix in 250 mL NS Route: IVPB; Infused bm8 Over: 1 hrs; Site: right forearm; 08/23 01:16 Follow up: Response: No adverse reaction; IV Status: Completed infusion 8 08/22 23:06 Drug: Levalbuterol Inhalation 2.5 mg Inhalation once Route: Inhalation; 8 08/23 01:16 Follow up: Response: No adverse reaction 8 08/22 23:06 Drug: Ipratropium Inhalation Aerosol 0.5 mg Inhalation once Route: Inhalation; bm8 08/23 01:16 Follow up: Response: No adverse reaction bm8 08/22 23:06 Drug: predniSONE PO 60 mg PO once Route: PO; bm8 08/23 01:16 Follow up: Response: No adverse reaction bm8 Disposition Summary: 08/22/24 22:18 Hospitalization Ordered Notes: Hospitalization Status: Observation charles Provider: Roselia Hines cha Condition: Fair charles Problem: new charles Symptoms: have improved charles Bed/Room Type: Standard charles Location: Telemetry/MedSurg (observation)(08/23/24 16:09) Room Assignment: 206(08/23/24 16:09) Diagnosis - Pneumonia due to SARS-associated coronavirus charles - Dyspnea charles - Moderate persistent asthma with (acute) exacerbation charles Forms: - Medication Reconciliation Form charles - SBAR form charles - Leadership Thank You Letter charles Signatures: Dispatcher [employer] EDMS Cole Borrego MD MD cha Blanchard, Shelby, RN RN Marya Mg RN RN vc1 Sabrina Knight RN RN me1 Jose Kolb, RN RN bm8 Corrections: (The following items were deleted from the chart) 08/22 21:06 21:06 BASIC METABOLIC PANEL+C.LAB.BRZ ordered. EDMS EDMS 21:06 21:06 CBC+H.LAB.BRZ ordered. EDMS EDMS 21:06 21:06 HEPATIC FUNCTION+C.LAB.BRZ ordered. EDMS EDMS 21:06 21:06 MAGNESIUM+C.LAB.BRZ ordered. EDMS EDMS 21:06 21:06 PROBNP+C.LAB.BRZ ordered. EDMS EDMS 21:06 21:06 PROTIME (+INR)+COAG.LAB.BRZ ordered. EDMS EDMS 21:06 21:06 Troponin High Sensitivity+C.LAB.BRZ ordered. EDMS EDMS 21:06 21:06 COVID-19 Ag + Flu A+B Ag+I.LAB.BRZ ordered. EDMS EDMS 21:06 21:06 BLOOD CULTURE*+BA.LAB.BRZ ordered. EDMS EDMS 21:06 21:06 LACTATE+C.LAB.BRZ ordered. EDMS EDMS 08/23 00:02 08/22 22:18 Telemetry/MedSurg (observation) charles vc1 08/23 00:02 08/22 22:18 charles vc1 08/23 16:09 00:02 [facility] vc1 ss [facility]: [facility]
--- NOTE | 2024-08-22 22:18 | ER ---
Nurse's Notes [facility] Name: Aniya Foreman Age: 63 yrs Sex: Female : 1960 Arrival Date: 08/22/2024 Time: 21:03 Bed 19 Private MD: Diagnosis: Pneumonia due to SARS-associated coronavirus;Dyspnea;Moderate persistent asthma with (acute) exacerbation Presentation: 08/22 21:04 Chief complaint: EMS states: toned out for shortness of breath. dx w/covid on Wednesday. me1 Reports symptoms started on 08/14/24. States that tonight she was just sitting there and couldn't catch her breath. Given a duoneb by EMS and reports some relief. Coronavirus screen: Vaccine status: Patient reports being unvaccinated. Ebola Screen: No symptoms or risks identified at this time. Initial Sepsis Screen: Does the patient meet any 2 criteria? No. Patient's initial sepsis screen is negative. Does the patient have a suspected source of infection? No. Patient's initial sepsis screen is negative. Risk Assessment: Do you want to hurt yourself or someone else? Patient reports no desire to harm self or others. Onset of symptoms was August 11, 2024. 21:04 Method Of Arrival: EMS: [facility] 21:04 Acuity: VIDAL 3 me1 Triage Assessment: 21:07 General: Appears ill, well groomed, well developed, well nourished, Behavior is calm, me1 cooperative, appropriate for age. Pain: Denies pain. EENT: No signs and/or symptoms were reported regarding the EENT system. Neuro: Level of Consciousness is awake, alert, obeys commands, Oriented to person, place, time, situation, Appropriate for age. Cardiovascular: Patient's skin is warm and dry. Respiratory: Reports shortness of breath at rest on exertion Airway is patent Respiratory effort is even, unlabored, Respiratory pattern is regular, symmetrical, Onset: The symptoms/episode began/occurred August 11, 2024, the patient has moderate shortness of breath. Respiratory: Reports cough that is persistent. GI: No signs and/or symptoms were reported involving the gastrointestinal system. : No signs and/or symptoms were reported regarding the genitourinary system. Derm: Skin is intact, is healthy with good turgor, Skin is pink, warm \T\ dry. Musculoskeletal: No signs and/or symptoms reported regarding the musculoskeletal system. Historical: - Allergies: 21:07 Mucinex; me1 21:07 PENICILLINS; me1 - PMHx: 21:07 Bipolar disorder; High Cholesterol; Hypertension; RA; Hypothyroidism; me1 - PSHx: 21:07 knee replacement - left; me1 - Immunization history:: Adult Immunizations up to date. - Infectious Disease History:: Denies. - Social history:: Smoking status: Patient denies any tobacco usage or history of. Screenin:09 [facility] ED Fall Risk Assessment (Adult) History of falling in the last 3 months, me1 including since admission No falls in past 3 months (0 pts) Confusion or Disorientation No (0 pts) Intoxicated or Sedated No (0 pts) Impaired Gait No (0 pts) Mobility Assist Device Used No (0 pt) Altered Elimination No (0 pt) Score/Fall Risk Level 0 - 2 = Low Risk Oriented to surroundings, Maintained a safe environment, Provided non-skid footwear, Hourly rounding (assess needs \T\ fall precautionary measures) done. Abuse screen: Denies threats or abuse. Nutritional screening: No deficits noted. Tuberculosis screening: No symptoms or risk factors identified. Assessment: 21:09 General: See triage assessment. Cardiovascular:. Respiratory: Airway is patent me1 Respiratory effort is even, labored, Respiratory pattern is regular, symmetrical, 23:06 Reassessment: Patient appears in no apparent distress at this time. No changes from bm8 previously documented assessment. Patient is alert, oriented x 3, equal unlabored respirations, skin warm/dry/pink. Patient denies pain at this time. Patient states feeling better. Patient states symptoms have improved. Neuro: No deficits noted. Level of Consciousness is awake, alert, obeys commands, Oriented to person, place, time, situation, Appropriate for age. Cardiovascular: Heart tones S1 S2 present Capillary refill < 3 seconds Patient's skin is warm and dry. Rhythm is sinus rhythm. Respiratory: Breath sounds are clear bilaterally. GI: No signs and/or symptoms were reported involving the gastrointestinal system. : No signs and/or symptoms were reported regarding the genitourinary system. EENT: No signs and/or symptoms were reported regarding the EENT system. Derm: No signs and/or symptoms reported regarding the dermatologic system. Musculoskeletal: No signs and/or symptoms reported regarding the musculoskeletal system. 08/23 01:15 Reassessment: Patient appears in no apparent distress at this time. Patient and/or bm8 family updated on plan of care and expected duration. Pain level reassessed. Patient is alert, oriented x 3, equal unlabored respirations, skin warm/dry/pink. Patient denies pain at this time. Patient states feeling better. Patient states symptoms have improved. Vital Signs: 08/22 21:04 BP 137 / 77; Pulse 87; Resp 20; Temp 98.9; Pulse Ox 95% ; Weight 104.33 kg; Height 5 me1 ft. 4 in. ; Pain 0/10; 21:55 BP 121 / 78; Pulse 84; Resp 18; Pulse Ox 97% ; me1 08/23 01:15 BP 128 / 68; Pulse 77; Resp 18; Temp 98.9; Pulse Ox 98% ; Pain 0/10; bm8 08/22 21:04 Body Mass Index 39.48 (104.33 kg, 162.56 cm) ne1 08/22 21:04 Pain Scale: Adult ne1 08/23 01:15 Pain Scale: Adult bm8 [place] Coma Score: 08/22 23:06 Eye Response: spontaneous(4). Motor Response: obeys commands(6). Verbal Response: bm8 oriented(5). Total: 15. 08/23 01:15 Eye Response: spontaneous(4). Motor Response: obeys commands(6). Verbal Response: bm8 oriented(5). Total: 15. ED Course: 08/22 21:04 Patient arrived in ED. me1 21:04 Cole Borrego MD is Attending Physician. [facility] 21:06 Triage completed. me1 21:07 Arm band placed on Patient placed in an exam room. me1 21:09 Patient has correct armband on for positive identification. Bed in low position. Call [facility] light in reach. Side rails up X2. Provided Education on: POC. Verbalized understanding.. Client placed on continuous cardiac and pulse oximetry monitoring. NIBP monitoring applied. emergency department aide on. Pulse ox on. NIBP on. 21:09 No provider procedures requiring assistance completed. me1 21:24 Sabrina Knight, GERMAN is Primary Nurse. me1 21:44 COVID-19 Ag + Flu A+B Ag Sent. me1 21:46 COVID swab sent to lab. Flu and/or RSV swab sent to lab. me1 21:46 Missed attempt(s): 22 gauge in right antecubital area. me1 21:46 Missed attempt(s): 22 gauge in right antecubital area. me1 21:50 XRAY Chest (1 view) In Process Unspecified. EDMS 21:55 EKG done, by ED staff, reviewed by Cole Borrego MD. me1 22:15 Inserted saline lock: 20 gauge in right antecubital area, using aseptic technique. bm8 Blood collected. Flushed with 10 mL NS. Patient maintains SpO2 saturation greater than 95% on room air. 22:15 Initial lab(s) drawn, by me, sent to lab. First set of blood cultures drawn by me. bm8 22:17 Roselia Hines MD is Hospitalizing Provider. [facility] 22:30 Second set of blood cultures drawn by ne. bm8 23:06 Door closed. Noise minimized. Pillow given. Verbal reassurance given. Head of bed bm8 elevated. 08/23 01:15 Provided Education on: need for admission. bm8 01:15 Patient admitted, IV remains in place. bm8 Administered Medications: 08/22 23:05 Drug: MethylPrednisoLONE IVP 125 mg IVP once Route: IVP; Site: right forearm; 8 08/23 01:16 Follow up: Response: No adverse reaction [facility] 08/22 23:06 Drug: Famotidine IVP 40 mg IVP once; dilute with 10 mL 0.9% NaCl; give over 2 minutes bm8 Route: IVP; Site: right forearm; 08/23 01:16 Follow up: Response: No adverse reaction [facility] 08/22 23:06 Drug: Rocephin IV 1 grams IV at per protocol once; Given slow IV push per pharmacy bm8 instructions Route: IV; Rate: per protocol; Site: right forearm; 08/23 01:16 Follow up: Response: No adverse reaction; IV Status: Completed infusion 8 08/22 23:06 Drug: Zithromax IVPB 500 mg IVPB once over 1 hrs; mix in 250 mL NS Route: IVPB; Infused bm Over: 1 hrs; Site: right forearm; 08/23 01:16 Follow up: Response: No adverse reaction; IV Status: Completed infusion [facility] 08/22 23:06 Drug: Levalbuterol Inhalation 2.5 mg Inhalation once Route: Inhalation; [facility] 08/23 01:16 Follow up: Response: No adverse reaction [facility] 08/22 23:06 Drug: Ipratropium Inhalation Aerosol 0.5 mg Inhalation once Route: Inhalation; 8 08/23 01:16 Follow up: Response: No adverse reaction [facility] 08/22 23:06 Drug: predniSONE PO 60 mg PO once Route: PO; 8 08/23 01:16 Follow up: Response: No adverse reaction 8 Medication: 08/22 21:09 VIS not applicable for this client. me1 Outcome: 22:18 Decision to Hospitalize by Provider. [facility] 08/23 01:15 Admitted to ER Hold. Please see [facility] for further documentation. bm8 Condition: stable Instructed on follow up and referral plans. the need for admit, Demonstrated understanding of follow-up care, medications, 16:59 Admitted to Med/surg accompanied by tech, via wheelchair, room 206, with chart, Report me1 called to faxed 16:59 Condition: stable 16:59 Instructed on the need for admit, 17:00 Patient left the ED. me1 Signatures: Dispatcher [employer] EDCole Rodrigues MD MD cha Eddleman, Michelle, GERMAN RN me1 Jose Kolb, GERMAN RN bm8 Corrections: (The following items were deleted from the chart) 08/22 21:07 21:04 Onset of symptoms was August 10, 2024 me1 me1
[2024-08-22 22:40] LABS: Influenza A Ag Negative; Influenza B Ag Negative; SARS-CoV-2 Antigen Rapid Res Positive (Negative)
[2024-08-22] MEDS ORDERED: CEFTRIAXONE 1000 MG/VIAL ONE (22:45)
[2024-08-22] MEDS ORDERED: predniSONE 20 MG TAB ONE (22:45)
[2024-08-22] MEDS ORDERED: LEVALBUTEROL 1.25 MG/3 ML NEB ONE (22:45)
[2024-08-22] MEDS ORDERED: IPRATROPIUM BROM 0.5MG/2.5ML ONE (22:45)
[2024-08-22] MEDS ORDERED: METHYLPREDNISOLONE 125 MG INJ ONE (22:45)
[2024-08-22] MEDS ORDERED: AZITHROMYCIN 500 MG INJ IVPB ONE (22:46)
[2024-08-22] MEDS ORDERED: NA CHLORIDE 0.9% 250 ML ONE (22:46)
[2024-08-22] MEDS ORDERED: ONDANSETRON 4 MG/2 ML VIAL IV PRN (22:48)
[2024-08-22] MEDS ORDERED: MORPHINE 2 MG/ML SYR IV PRN (22:48)
[2024-08-22] MEDS ORDERED: ALBUTEROL 2.5 MG/3 ML NEB SOL NEB PRN (22:48)
--- NOTE | 2024-08-22 22:53 | P.HP ---
Patient History Date of Service: 08/23/24 Reason for admission: COVID-19 positive test (U07.1, COVID-19) with Acute Pneumo lorenzo (J12.89, Ot History of Present Illness: 63-year-old with a past medical history of asthma, bipolar disorder, hypertension, rheumatoid arthritis, hypothyroidism, high cholesterol presenting with shortness of breath for the last 7 days. Associated symptoms include cough, fever, and weakness. The shortness of breath is improved when she sits up. She went to see her PCP who gave her an antibiotic and promethazine. In addition he gave her nebulizer machine which helped a little bit. 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 She denies any sick contacts or travel outside the country recently Allergies Penicillins Allergy (Verified 01/19/23 06:02) Hives/Rash Home Medications: Lamotrigine [Lamictal] 100 mg PO DAILY 06/08/20 Escitalopram [Lexapro] 20 mg PO DAILY 01/18/23 Levothyroxine Sodium [Synthroid] 175 mcg PO DAILY 01/18/23 Lurasidone HCl [Latuda] 20 mg PO DAILY 01/18/23 Spironolactone [Aldactone] 25 mg PO DAILY 01/18/23 Trazodone [Desyrel] 25 mg PO BEDTIME 01/18/23 - Past Medical/Surgical History Diabetic: No -: HTN -: High cholestrol -: Rheumatoid arthritis -: depression -: heart catheterization -: left knee tear -: Left total knee replacement - Family History Father -: Lung disease, Diabetes, Cancer, Other (see notes) Notes: lung cancer Mother -: Hypertension, Stroke - Social History Alcohol use: No CD- Drugs: No Caffeine use: Yes Review of Systems Eyes: Unremarkable ENT: Unremarkable Respiratory: Cough, Shortness of Breath Cardiovascular: Unremarkable Gastrointestinal: Unremarkable Genitourinary: Unremarkable Musculoskeletal: Unremarkable Integumentary: Unremarkable Neurological: Unremarkable Lymphatics: Unremarkable Physical Examination - Physical Exam General: Alert, In no apparent distress HEENT: Atraumatic, Normocephalic Neck: Supple Respiratory: Clear to auscultation bilaterally, Normal air movement Cardiovascular: No edema Capillary refill: <2 Seconds Gastrointestinal: Normal bowel sounds Musculoskeletal: No clubbing Integumentary: No rashes Neurological: Normal gait, Normal speech Lymphatics: No axilla or inguinal lymphadenopathy Assessment and Plan - Plan Covid Pneumonia Asthma exacerbation Elevated creatinine Hypertension High cholesterol Rheumatoid arthritis Admit to floor Isolation and airborne precautions Start IV steroids, bronchodilator Consider Paxlovid IV normal saline Continue home Synthroid Continue Lexapro, Lamictal, Latuda Continue Aldactone DVT prophylaxis with heparin - Advance Directives Does patient have a Living Will: No Does patient have a Durable POA for Healthcare: No
[2024-08-22 22:55] LABS: Absolute Basophils 0.1 K/uL (0-0.5); Absolute Eosinophils 0.2 K/uL (0-0.5); Absolute Lymphocytes (CBC) 1.3 K/uL (0.7-4.9); Absolute Monocytes 0.7 K/uL (0.1-1.3); Absolute Neutrophil 4.8 K/uL (1.8-8.0); Basophils % 1.3 % (0-1.3); Eosinophils % 2.6 % (0-4.4); Hematocrit 35.8 % (36.0-45.0); Lymphocytes % 18.2 % (15.3-44.8); MCH 25.6 pg (27.0-35.0); MCHC 33.5 g/dL (32.0-36.0); MCV 76.5 fL (80-100); MPV 7.6 fL (7.6-11.3); Monocytes % 9.4 % (3.3-12.3); Neutrophils % 68.5 % (41.7-73.7); Nucleated Red Blood Cells % 0.1 % (0-0); Platelets 218 thou/uL (152-406); RBC Red Blood Cell Count 4.69 M/uL (3.86-4.86); Red Cell Distribution Width 16.7 % (12.1-15.2)
[2024-08-22 23:08] LABS: ALT/SGPT 15 U/L (13-56); AST/SGOT 13 U/L (15-37); Albumin 3.6 g/dL (3.4-5.0); Albumin/Globulin Ratio 0.8 (1.1-1.8); Alkaline Phosphatase 122 U/L (45-117); Anion Gap 9.6 mEq/L (5.0-15.0); BUN Blood Urea Nitrogen 7 mg/dL (7-18); Bicarbonate 24 mEq/L (21-32); Bilirubin Total 0.4 mg/dL (0.2-1.0); Globulin 4.4 g/dL (2.3-3.5); Glomerular Filtration Rate 50 ml/min (=/>90); Glucose Level 118 mg/dL (74-106); Magnesium 2.2 mg/dL (1.6-2.4); NT PRO-BNP 42 pg/mL (<125); Potassium 3.6 mEq/L (3.5-5.1); Sodium Level 135 mEq/L (136-145); Troponin High Sensitivity 3.8 pg/mL (<58.9)
[2024-08-22 23:36] LABS: Bilirubin Direct < 0.2 mg/dL (0-0.2); Bilirubin Indirect, Calculated 0.2 mg/dL (0.2-0.8)
[2024-08-22 23:46] LABS: PT Prothrombin Time 13.6 SECONDS (10-13.0); Protime INR 1.2
[2024-08-23 01:33] VITALS: BMI 39.4
--- NOTE | 2024-08-23 04:00 | RAD REPORT ---
EXAM: CT Angiography Chest With Intravenous Contrast CLINICAL HISTORY: The patient is 63 years old and is Female; Chest pain;Cough;Congestion TECHNIQUE: Axial computed tomographic angiography images of the chest with intravenous contrast. Sagittal and coronal reformatted images were created and reviewed. This CT exam was performed using one or more of the following dose reduction techniques: automated exposure control, adjustmen t of the mA and/or kV according to patient size, and/or use of iterative reconstruction technique. MIP reconstructed images were created and reviewed. COMPARISON: No relevant prior studies available. FINDINGS: Pulmonary arteries: Unremarkable. No pulmonary embolism. Aorta: No acute findings. No thoracic aortic aneurysm. Lungs: Unremarkable. No mass. No consolidation. Pleural space: Unremarkable. No significant effusion. No pneumothorax. Heart: Unremarkable. No cardiomegaly. No significant pericardial effusion. No evidence of R V dysfunction. Bones/joints: No acute fracture. No dislocation. Soft tissues: Unremarkable. Lymph nodes: Unremarkable. No enlarged lymph nodes. IMPRESSION: No acute finding in the chest. No evidence of pulmonary embolism. Electronically signed by: Kong Mcduffie MD 08/23/2024 03:33 AM [facility] 8 Due to temporary technical issues with the PACS/Shoeb[employer] reporting system, reports are being felipe d by the in-house radiologist without review as a courtesy to ensure prompt reporting the interpreting radiologist is fully responsible for the content of the report. Transcribed Date/Time: 08/23/2024 4:00 AM
[2024-08-23 05:15] LABS: Absolute Lymphocytes (CBC) 0.3 K/uL (0.7-4.9); Absolute Monocytes 0.1 K/uL (0.1-1.3); Absolute Neutrophil 5.4 K/uL (1.8-8.0); Basophils % 0.6 % (0-1.3); Eosinophils % 0.2 % (0-4.4); Hematocrit 34.3 % (36.0-45.0); Hemoglobin 11.5 g/dL (12.0-15.0); Lymphocytes % 5.7 % (15.3-44.8); MCH 25.8 pg (27.0-35.0); MCHC 33.4 g/dL (32.0-36.0); MCV 77.1 fL (80-100); MPV 8.1 fL (7.6-11.3); Monocytes % 1.6 % (3.3-12.3); Neutrophils % 91.9 % (41.7-73.7); Nucleated Red Blood Cells % 0.1 % (0-0); Platelets 199 thou/uL (152-406); RBC Red Blood Cell Count 4.45 M/uL (3.86-4.86); Red Cell Distribution Width 16.4 % (12.1-15.2)
[2024-08-23 05:28] LABS: C-Reactive Protein 14.3 mg/L (<3.00); Ferritin 62.2 ng/mL (8-252)
[2024-08-23] MEDS: LEVOTHYROXINE SOD 0.075 MG TAB PO SCH (06:30)
[2024-08-23] MEDS ORDERED: IPRATROPIUM BROM 0.5MG/2.5ML ONE ×2 (07:57→13:42)
[2024-08-23] MEDS ORDERED: METHYLPREDNISOLONE 125 MG INJ ONE (08:31)
[2024-08-23] MEDS ORDERED: HEPARIN 5000 UNIT/ML 1 ML VIAL ONE (08:31)
[2024-08-23] MEDS ORDERED: FAMOTIDINE 20 MG/2 ML VIAL IV ONE (08:31)
[2024-08-23 08:44] LABS: Blood Morphology Comment NOT SEEN (NOT SEEN); Platelet Estimate ADEQ; Platelets, Giant NOTED; White Blood Cell Scan OK (OK)
[2024-08-23] MEDS: LEVOTHYROXINE SOD 0.1 MG TAB PO SCH (09:00)
[2024-08-23] MEDS: lamoTRIgine 100 MG TAB PO SCH (09:00)
[2024-08-23] MEDS: FAMOTIDINE 20 MG/2 ML VIAL IV SCH (09:00)
[2024-08-23] MEDS: SPIRONOLACTONE 25 MG TABLET PO SCH (09:00)
[2024-08-23] MEDS ORDERED: IPRATROPIUM BROM 0.5MG/2.5ML NEB SCH (09:00)
[2024-08-23] MEDS: ESCITALOPRAM 20 MG TAB PO SCH (09:00)
[2024-08-23] MEDS: HEPARIN 5000 UNIT/ML 1 ML VIAL SQ SCH (09:00)
[2024-08-23] MEDS: METHYLPREDNISOLONE 40 MG INJ IV SCH (09:00)
[2024-08-23] MEDS ORDERED: SPIRONOLACTONE 25 MG TABLET ONE (09:27)
[2024-08-23] MEDS: AZITHROMYCIN 250 MG TAB PO SCH (12:42)
[2024-08-23] MEDS: IPRATROPIUM BROM 0.5MG/2.5ML NEB SCH (13:00)
[2024-08-23] MEDS ORDERED: ALBUTEROL 2.5 MG/3 ML NEB SOL ONE (13:42)
[2024-08-23] MEDS: ALBUTEROL 2.5 MG/3 ML NEB SOL NEB SCH (14:00)
[2024-08-23] MEDS ORDERED: AZITHROMYCIN 250 MG TAB ONE (14:06)
--- NOTE | 2024-08-23 16:36 | P.PN ---
Subjective Date of Service: 08/23/24 Chief Complaint: COVID-19 positive test (U07.1, COVID-19) with Acute Pneumonia (J12.89, Ot Patient reports intermittent shortness of breath. She has been ambulating on room air with good oxygen saturation. No recorded fever. Physical Examination - Vital Signs Temperature: 97.9 F Blood Pressure: 145/79 Pulse: 73 Respirations: 18 Pulse Ox (%): 96 - Studies Laboratory Data (last 24 hrs) 08/22/24 08/22/24 08/22/24 22:30 22:30 22:30 WBC 7.00 Hgb 12.0 Hct 35.8 L Plt Count 218 PT 13.6 H INR 1.20 Sodium 135 L Potassium 3.6 BUN 7 Creatinine 1.22 H Glucose 118 H Magnesium 2.2 Total Bilirubin 0.4 AST 13 L ALT 15 Alkaline Phosphatase 122 H Assessment And Plan - Plan Physical examination General: Alert and oriented x3, NAD, HEENT: Conjunctiva not pale, anicteric sclera Neck: Supple, no elevated JVD Heart: Heart sounds 1 and 2 normal, regular rhythm, normal rate, no pedal edema Lungs: Mild scattered wheezes, no crackles adequate breath sounds bilaterally. Abdomen: Soft, nondistended, nontender, normal bowel sounds. Extremities: No tenderness, no deformity Skin: Normal skin turgor, no rash, no nodules or ulcers. Neuro: No focal motor deficit. Normal speech. Psychiatry: Normal mood, no agitation. Diagnosis Covid Pneumonia Asthma exacerbation Elevated creatinine Hypertension Hyperlipidemia Rheumatoid arthritis Plan: COVID Pneumonia Patient is not hypoxic Patient reports symptoms started about 7 days ago. Successfully reviewed and reporting possible reactive airway disease CT chest shows no infiltrates Continue supportive measures with steroid. Patient is out of the window for Paxlovid Antitussives as needed. Acute asthma exacerbation Bronchodilators IV steroid Patient is stable on room air Monitor. Hypertension Hyperlipidemia Rheumatoid arthritis Stable Continue home medications DVT prophylaxis: Lovenox Advanced directive: Full code
[2024-08-23] MEDS: TRAZODONE 50 MG TABLET PO SCH (21:13)
[2024-08-24 04:57] LABS: Absolute Lymphocytes (CBC) 0.8 K/uL (0.7-4.9); Absolute Monocytes 0.3 K/uL (0.1-1.3); Absolute Neutrophil 9.7 K/uL (1.8-8.0); Basophils % 0.3 % (0-1.3); Hematocrit 35.9 % (36.0-45.0); Hemoglobin 11.6 g/dL (12.0-15.0); Lymphocytes % 7.6 % (15.3-44.8); MCH 25.4 pg (27.0-35.0); MCHC 32.5 g/dL (32.0-36.0); MCV 78.2 fL (80-100); Monocytes % 2.4 % (3.3-12.3); Nucleated Red Blood Cells % 0.1 % (0-0); Platelets 220 thou/uL (152-406); RBC Red Blood Cell Count 4.59 M/uL (3.86-4.86); Red Cell Distribution Width 16.7 % (12.1-15.2)
[2024-08-24 04:59] LABS: Neutrophils % 89.7 % (41.7-73.7)
[2024-08-24 05:33] LABS: Anion Gap 12.8 mEq/L (5.0-15.0); Potassium 4.8 mEq/L (3.5-5.1)
--- NOTE | 2024-08-24 08:53 | P.DS ---
Admission Date: 08/22/24 Discharge Date: 08/24/24 Disposition: ROUTINE DISCHARGE Discharge Condition: FAIR Reason for Admission: COVID-19 positive test (U07.1, COVID-19) with Acute Pneumonia (J12.89, Ot Brief History of Present Illness: 63-year-old with a past medical history of asthma, bipolar disorder, hypertension, rheumatoid arthritis, hypothyroidism, high cholesterol presenting with shortness of breath for the last 7 days. Associated symptoms include cough, fever, and weakness. Hospital Course: Diagnosis Covid Pneumonia Asthma exacerbation Elevated creatinine Hypertension Hyperlipidemia Rheumatoid arthritis Patient admitted for COVID -19 infections. Chest x-ray demonstrated reactive airway disease. CT chest showed no acute infiltrate or pneumonia Patiet with a history asthma developed asthma exacerbation. Patient was not hypoxic and did not require oxygen at rest or with ambulation. Patient is out of the window to benefit from Paxlovid. Renal function is impaired. Creatinine level is up to 1.38 which is slightly abnormal. It is recommended patient check her renal function test blood work within 1 week to make sure it is stable. Patient prescribed Medrol pack. Patient advised to complete her Z-pack prescription. Vital Signs/Physical Exam: Temp Pulse Resp BP Pulse Ox 98.1 F 78 18 158/73 H 97 08/24/24 04:00 08/24/24 04:00 08/24/24 04:00 08/24/24 04:00 08/24/24 04:00 General: Alert, In no apparent distress, Oriented x3 HEENT: Mucous membr. moist/pink, Sclerae nonicteric Neck: Supple, JVD not distended Respiratory: Clear to auscultation bilaterally, Normal air movement Cardiovascular: No edema, Regular rate/rhythm, Normal S1 S2 Gastrointestinal: Normal bowel sounds, Soft and benign, Non-distended, No tenderness Musculoskeletal: No swelling Integumentary: No rashes, No cyanosis Neurological: Normal speech, Normal strength at 5/5 x4 extr Laboratory Data at Discharge: WBC 10.80 thou/uL (4.3-10.9) 08/24/24 04:36 Hgb 11.6 g/dL (12.0-15.0) L 08/24/24 04:36 Hct 35.9 % (36.0-45.0) L 08/24/24 04:36 Plt Count 220 thou/uL (152-406) 08/24/24 04:36 PT 13.6 SECONDS (10-13.0) H 08/22/24 22:30 INR 1.20 08/22/24 22:30 Sodium 137 mEq/L (136-145) 08/24/24 04:36 Potassium 4.8 mEq/L (3.5-5.1) 08/24/24 04:36 BUN 14 mg/dL (7-18) 08/24/24 04:36 Creatinine 1.38 mg/dL (0.55-1.02) H 08/24/24 04:36 Glucose 183 mg/dL (74-106) H 08/24/24 04:36 Magnesium 2.2 mg/dL (1.6-2.4) 08/22/24 22:30 Total Bilirubin 0.4 mg/dL (0.2-1.0) 08/22/24 22:30 AST 13 U/L (15-37) L 08/22/24 22:30 ALT 15 U/L (13-56) 08/22/24 22:30 Alkaline Phosphatase 122 U/L (45-117) H 08/22/24 22:30 Home Medications: Lamotrigine [Lamictal] 100 mg PO DAILY 06/08/20 Escitalopram [Lexapro*] 20 mg PO DAILY 01/18/23 Levothyroxine Sodium [Synthroid] 175 mcg PO DAILY 01/18/23 Spironolactone [Aldactone*] 25 mg PO DAILY 01/18/23 Trazodone [Desyrel*] 25 mg PO BEDTIME 01/18/23 Azithromycin Tab [Zithromax*] 250 mg PO ZPAK #1 lev 08/23/24 Methylprednisolone [Medrol dosepack] 4 mg PO DIRECTED #1 lev 08/23/24 New Medications: Methylprednisolone [Medrol dosepack] 4 mg PO DIRECTED #1 lev Azithromycin Tab [Zithromax*] 250 mg PO ZPAK #1 lev Physician Discharge Instructions: Patient admitted for COVID -19 infections. Chest x-ray demonstrated reactive airway disease. CT chest showed no acute infiltrate or pneumonia Patiet with a history asthma developed asthma exacerbation. Patient was not hypoxic and did not require oxygen at rest or with ambulation. Patient is out of the window to benefit from Paxlovid. Renal function is impaired. Creatinine level is up to 1.38 which is slightly abnormal. It is recommended patient check her renal function test blood work within 1 week to make sure it is stable. Patient prescribed Medrol pack. Patient advised to complete her Z-pack prescription. Diet: AHA Activity: Ad sandoval Followup: Adriana Dsouza DO, DO [Primary Care Provider] - 1 Week Time spent managing pt's care (in minutes): 32
[2024-08-24 08:58] VITALS: TEMP 97.6
[2024-08-24] MEDS: HOME MED 1 EA UNK (Lurasidone Hcl [Latuda] 20 MG Tablet) PO SCH (09:00)
[2024-08-24] MEDS: ENOXAPARIN 40 MG/0.4 ML SQ SCH (09:22)
[2024-08-24 09:24] VITALS: BP 113/68
[2024-08-24 10:13] VITALS: O2SAT 93
--- NOTE | 2024-08-24 12:12 | P.CNS ---
Date of Consult: 08/24/24 Reason for Consult: Asthma exacerbation Chief Complaint: Asthma exacerbation coronavirus infection History of Present Illness: Patient is 63 years of age became sick last Amb[place] started complaining of cough home study showed that she is positive for coronavirus Fever weakness continued to get worse she was treated with antibiotics promethazine but having severe coughing spells and it appeared in the emergency room Allergies Penicillins Allergy (Verified 01/19/23 06:02) Hives/Rash Home Medications: Lamotrigine [Lamictal] 100 mg PO DAILY 06/08/20 Escitalopram [Lexapro*] 20 mg PO DAILY 01/18/23 Levothyroxine Sodium [Synthroid] 175 mcg PO DAILY 01/18/23 Spironolactone [Aldactone*] 25 mg PO DAILY 01/18/23 Trazodone [Desyrel*] 25 mg PO BEDTIME 01/18/23 Azithromycin Tab [Zithromax*] 250 mg PO ZPAK #1 lev 08/23/24 Methylprednisolone [Medrol dosepack] 4 mg PO DIRECTED #1 lev 08/23/24 - Past Medical/Surgical History Diabetic: No -: HTN -: High cholestrol -: Rheumatoid arthritis -: depression -: heart catheterization -: left knee tear -: Left total knee replacement - Family History Father Medical History: Lung disease, Diabetes, Cancer, Other (see notes) Notes: lung cancer Mother Medical History: Hypertension, Stroke - Social History Smoking Status: Never smoker Alcohol use: No CD- Drugs: No Caffeine use: Yes Review of Systems General: Weakness Respiratory: Cough, Shortness of Breath Physical Examination Temp Pulse Resp BP Pulse Ox 97.6 F 78 18 113/68 98 08/24/24 08:00 08/24/24 09:23 08/24/24 08:00 08/24/24 09:23 08/24/24 08:00 General: Alert, Oriented x3 Respiratory: Expiratory wheezes Cardiovascular: No edema, Regular rate/rhythm, Normal S1 S2 - Problems (1) Asthma exacerbation Status: Acute Plan: Patient is 63 years of age with history of asthma admitted with an exacerbation secondary to coronavirus chest x-ray is clear this started over a week ago patient's chest x-ray is clear mild renal impairment no evidence of pulmonary embolism no acute findings on CT patient's vital signs are stable continues complaining of persistent cough chest pressure admit for observation treat with IV steroids and bronchodilators mild microcytic anemia stable to be discharged home feeling a lot better today agree with steroid Dosepak Qualifiers: Asthma persistence: intermittent
--- NOTE | 2024-08-30 13:09 | EKG ---
Test Date: 2024-08-22 Test Time: 21:50:45 Juice Weigher: MEASUREMENT RESULTS: Intervals: Rate: 81 CO: 146 QRSD: 106 QT: 394 QTc: 457 [place]: P: 20 CO: 146 QRS: -70 T: 36 INTERPRETIVE STATEMENTS: Normal sinus rhythm Left anterior fascicular block Abnormal ECG Compared to ECG 08/02/2024 20:58:56 Sinus bradycardia no longer present Left ventricular hypertrophy no longer present Electronically Signed On 08-30-24 12:48:02 CDT by Loki Thomas
== END 2024-08-24 11:56 | disposition home or self-care (01) | DRG 177 ==
LOC: ER 21:03 → ERHOLD 22:48 → 2ND 08-23 16:26
PROVIDERS: ADMIT Family Medicine; ATTEND Internal Medicine
PROC: 5A0945A Assistance with Respiratory Ventilation, 24-96 Consecutive Hours, High Flow/Velocity Cannula (ICD-10-PCS; principal; 2024-08-22)
DX: U07.1 COVID-19 (principal); J12.82 Pneumonia due to coronavirus disease 2019; J45.41 Moderate persistent asthma with (acute) exacerbation; J44.0 Chronic obstructive pulmonary disease with (acute) lower respiratory infection; E78.00 Pure hypercholesterolemia, unspecified; I10 Essential (primary) hypertension; E03.9 Hypothyroidism, unspecified; D64.9 Anemia, unspecified; E66.9 Obesity, unspecified; M06.9 Rheumatoid arthritis, unspecified; Z88.0 Allergy status to penicillin; Z68.39 Body mass index [BMI] 39.0-39.9, adult; Z96.652 Presence of left artificial knee joint; Z79.890 Hormone replacement therapy; Z79.899 Other long term (current) drug therapy
CPT/HCPCS: 36415; 71045; 71275; 80048; 80076; 82728; 83605; 83735; 83880; 84484; 85025; 85379; 85610; 86140; 87040; 87428; 93005; 94640; 94760; 96365; 96366; 96368; 96375; 99285; J0696; J1644; J1650; J2919; J7050; J7512; J7613; J7614; J7644; Q9967